=== PATIENT | female | born 2005 | race Caucasian/White ===

== ENCOUNTER 2024-10-14 01:10 | Day surgery (SDC) | payer OTHER, SELFPAY ==
[2024-09-19 10:44] VITALS: BMI 36.0
[2024-10-13 14:07] VITALS: BMI 36.0
[2024-10-14 10:10] VITALS: BP 128/76; PULSE 90; RESP 20; TEMP 35.9; O2SAT 100; BMI 35.8
--- NOTE | 2024-10-14 10:19 | WPDANESEPPF ---
Anes - Initial Pre Proc Eval Procedure: Operation Date: 10/14/24 11:00 Proposed Procedures p Esophagogastroduodenoscopy - Edis Horner MD Date/Time: 10/14/24 10:19 Surgeon: Edis Horner MD Pre Op Diagnosis: dysphagia Patient Data Age: 19 Gender: F Height: 1.63 m Weight: 94.7 kg Last Vital Signs Temp 35.9 C L 10/14/24 10:10 Pulse 90 10/14/24 10:10 Resp 20 10/14/24 10:10 BP 128/76 10/14/24 10:10 Pulse Ox 100 10/14/24 10:10 O2 Del Method Room Air 10/14/24 10:10 Allergies Allergy/AdvReac Type Severity Reaction Status Date / Time fluticasone furoate (From Allergy Mild Rash Verified 10/14/24 10:08 Breo Ellipta) vilanterol (From Breo Allergy Mild Rash Verified 10/14/24 10:08 Ellipta) Home Medications ?Medication ?Instructions ?Recorded ?Confirmed ?Type albuterol 90 mcg/actuation aerosol 90 mcg inhalation DIRECTED 06/26/24 09/19/24 History inhaler aripiprazole 2 mg tablet (Abilify) 2 mg PO DAILY 06/26/24 10/14/24 History cyclobenzaprine 10 mg tablet 10 mg PO TID 06/26/24 10/14/24 History divalproex 500 mg tablet,delayed 500 mg PO Q12H 06/26/24 10/14/24 History release (Depakote) fluoxetine 10 mg capsule (Prozac) 10 mg PO DAILY 06/26/24 10/14/24 History gabapentin 300 mg capsule 300 mg PO TID 06/26/24 10/14/24 History omeprazole 40 mg capsule,delayed 40 mg PO DAILY #30 caps 06/26/24 10/14/24 Rx release propranolol 20 mg tablet 20 mg PO Q12H 06/26/24 10/14/24 History rizatriptan 10 mg tablet See Rx Instructions PO .COMPLEX 06/26/24 10/14/24 History PRN migraine headache clonazepam 1 mg tablet 1 mg PO TID 09/19/24 10/14/24 History clonidine 0.1 mg BYMOUTH BID 09/19/24 10/14/24 History venlafaxine 75 mg capsule,extended 75 mg PO DAILY 09/19/24 10/14/24 History release 24 hr (Effexor XR) Patient hx anesthesia problems: none Family hx anesthesia problems: none Results Review: All pre-operative results and documents have been reviewed as part of the pre-operative evaluation. [facility] Past Medical History Medical History Arthritis Functional neurological symptom disorder (conversion disorder), with abnormal movement Tourette disease Migraines Asthma Anxiety Social History Social History Smoking status: Never smoker Substance use: current Substance use type: other Other substance usage details: THC gummy (2x month) Anes - Eval Final PreProcedure Day of Procedure 10/14/24 10:19 Patient weight: obese Heart: regular rate and rhythm Lungs: clear to auscultation Airway: Mallampati scale class II Neurological: alert and oriented Last oral intake: >/= 8 hours ASA classification: III Emergent: no Anesthetic plan: proceed Anesthesia type and monitoring: general GIVS and standard monitoring Results Review: All pre-operative results and documents have been reviewed as part of the pre-operative evaluation. Informed Consent: The patient's anesthetic plan and its attendant risks and benefits were discussed with the patient/family/POA. Questions were solicited and answers provided to the satisfaction of the patient/family/POA.
[2024-10-14] MEDS: LACTATED RINGERS 1,000 ML 150 ML IV CONT (10:25)
[2024-10-14 10:31] LABS: BEDSIDEPREGUCG Negative (Negative)
--- NOTE | 2024-10-14 10:37 | PM.HPGS ---
History of Present Illness History of Present Illness Consent: Risks, benefits, and alternatives have been discussed and questions answered. Patient agrees to proceed with procedure. Chief complaint: dysphagia Narrative: Lexie Oconnell is a 19 year old female here for first EGD, h/o choking to both solids and liquids, using omeprazole. Review of Systems Review of Systems: All systems reviewed & are unremarkable except as noted in HPI and below PMFSH Past Medical History Medical History Arthritis Functional neurological symptom disorder (conversion disorder), with abnormal movement Tourette disease Migraines Asthma Anxiety Social History Social History Smoking status: Never smoker Substance use: current Substance use type: other Other substance usage details: THC gummy (2x month) Meds Home Medications and Allergies Home Medications ?Medication ?Instructions ?Recorded ?Confirmed ?Type albuterol 90 mcg/actuation aerosol 90 mcg inhalation DIRECTED 06/26/24 09/19/24 History inhaler aripiprazole 2 mg tablet (Abilify) 2 mg PO DAILY 06/26/24 10/14/24 History cyclobenzaprine 10 mg tablet 10 mg PO TID 06/26/24 10/14/24 History divalproex 500 mg tablet,delayed 500 mg PO Q12H 06/26/24 10/14/24 History release (Depakote) fluoxetine 10 mg capsule (Prozac) 10 mg PO DAILY 06/26/24 10/14/24 History gabapentin 300 mg capsule 300 mg PO TID 06/26/24 10/14/24 History omeprazole 40 mg capsule,delayed 40 mg PO DAILY #30 caps 06/26/24 10/14/24 Rx release propranolol 20 mg tablet 20 mg PO Q12H 06/26/24 10/14/24 History rizatriptan 10 mg tablet See Rx Instructions PO .COMPLEX 06/26/24 10/14/24 History PRN migraine headache clonazepam 1 mg tablet 1 mg PO TID 09/19/24 10/14/24 History clonidine 0.1 mg BYMOUTH BID 09/19/24 10/14/24 History venlafaxine 75 mg capsule,extended 75 mg PO DAILY 09/19/24 10/14/24 History release 24 hr (Effexor XR) Allergies Allergy/AdvReac Type Severity Reaction Status Date / Time fluticasone furoate (From Allergy Mild Rash Verified 10/14/24 10:08 Breo Ellipta) vilanterol (From Breo Allergy Mild Rash Verified 10/14/24 10:08 Ellipta) Vital Signs Vital Signs - 24 hr 10/14/24 10:10 Temperature 96.6 F L Pulse Rate 90 Respiratory Rate 20 Blood Pressure 128/76 Pulse Oximetry 100 Oxygen Delivery Room Air Exam Const: General: comfortable, no acute distress and obese HENMT: Face/Nose/Sinus: Normal nares present Eyes: General: appearance normal, both eyes and all related structures Neck: Neck: no JVD Resp: Auscultation: clear to auscultation bilaterally Cardio: Rate: regular rate Rhythm: regular rhythm GI: Inspection: non-distended GI Palp: Yes Soft to palpation Skin: General skin exam: normal color Neuro: General: gait normal Speech: normal speech Extrem: General: normal to inspection Psych: Mental Status: mental status grossly normal Assessment and Plan Assessment and plan (1) Dysphagia: Code(s): R13.10 - Dysphagia, unspecified Status: Acute Assessment and Plan: egd with bx (2) GERD (gastroesophageal reflux disease): Code(s): K21.9 - Gastro-esophageal reflux disease without esophagitis Status: Acute
[2024-10-14] MEDS: BENZOCAINE (*SP) 60 ML SPRAY CAN (HURRICAINE) 1 SPRAY MUCOUS MEM (10:40)
[2024-10-14 10:46] VITALS: BP 98/48; PULSE 94; RESP 20; O2SAT 97
[2024-10-14 10:56] VITALS: BP 93/53; PULSE 90; RESP 18; O2SAT 98
[2024-10-14 11:06] VITALS: BP 113/59; PULSE 92; RESP 18; O2SAT 100
--- OUTSIDE RECORDS SUMMARY | 2024-10-16 03:33 | XMS_ITS | Encounter Summary ---
Author Organization [facility] Address [address] [place] [address]. 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 Name Role Phone None, Provider MD Primary Care Provider Unavaila ble Reason for Visit * Reason Comments Shortness Of Breath Encounter Details Date Type Department Care Team (Late st Contact Info) Description 07/18/2022 8:45 AM CDT - 07/18/2022 12:44 PM CDT Emergency [facility] [place] [address] Rina Matos, JESE [address] [place], [place] [id number] Shortness Of Breath Discharge Disposition: Home or Self Care (Routine Discharge) Social History Tobacco Use Types Packs/Day Years Used Date Smoking Tobacco: Never Smokeless Tobacco: Never Alcohol Use Standard Drinks/Week Comments Never 0 (1 standard drink = 0.6 oz pur e alcohol) Comments No Sex and Gender Information Value Date Recorded Sex Assigned at Not on file Legal Sex Female 7:03 PM CDT Gender Identity Not on file Sexual Orientation Not on file COVID-19 Exposure Response Date Recorded In the last 10 days, have yo u been in contact with someone who was confirmed or suspected to have Coronavirus/COVID-19? No / Unsure 07/18/2022 8:38 AM CDT documented as of this encounter Last Filed Vital Signs Vital Sign Reading Time Taken Comments Blood Pressure 97/60 07/18/2022 12:24 PM CDT Pulse 87 07/18/2022 12:24 PM CDT Temperature 36.8 ??C (98.3 ??F) 07/18/2022 8:50 AM CD T Respiratory Rate 18 07/18/2022 12:2 4 PM CDT Oxygen Saturation 100% 07/18/2022 12: 24 PM CDT Inhaled Oxygen Concentration - - Weight 66.4 kg (146 lb 6.2 oz) 07/18/2022 8:50 A M CDT Height 162.6 cm (5' 4 ) 07/18/2022 8:50 AM CDT Body Mass Index 25.13 07/18/2022 8:50 AM CDT Body Mass Index Percentile 82.82% 07/18/2022 8:5 0 AM CDT Growth Chart: [facility] (Girls, 2- 20 Years) documented in this encounter Discharge Instructions * Discharge Instructions* JESE Marks - 07/18/2022 12:23 PM CDT The work-up today did show that you are positive for rhinovirus which can trigger asthma exacerbations. The x-ray did not show any signs of pneumonia. Your blood counts were also noted without any significant abnormality. Given that you have improved for your asthma please follow-up with your primary care doctor and abdomen specialist this week for close reevaluation. Continue your home regimen. Return to the emergency room for any new or worsening symptoms especially for return of chest pain, worsening trouble breathing, uncontrolled vomiting, fever greater than 100.4 not relieved with Tylenol Motrin or other new emergent concerns. We also addressed your mood and previous thoughts of hurting herself. Given that you are not actively apparently having thoughts of hurting yourself or others, we strongly encourage close follow-up with your psychiatrist. Please continue on your home medications. We are always here should things change or mood change or you do have active thoughts of hurting yourself or others please return immedi ately to the emergency room. Thank you for giving us the opportunity to care for you today. If at any point you are becoming more ill, your condition worsens or have concern, please call your doctor or return here. You are always welcome back. If you have any questions about this visit, concerns about your symptoms, questions about your medications or other concerns, please give us a call... Our practice is committed to providing you the exceptional care. We want to hear from you! Please fill out the survey you get from us. Your feedback is anonymous & helps us improve the patient experience for you and others in the community we serve. - Rina Matos PA-C - Emergency Medicine Provider ADDITIONAL DISCHARGE INSTRUCTIONS: --Please follow all the instructions that we have discussed or are provided here. Take all medications as directed. --Emergency Departments (ED) provide medical screening exams and initial stabilizing treatment of emergency medical conditions. Medicine is an inexact science and many conditions cannot be diagnosed or completely treated during a single ED visit. Your treating healthcare provider(s) today feel yourcondition has been stabilized so further care as an outpatient is reasonable. Emergency care does not substitute for complete, ongoing, or follow-up care by your primary care physician or garden consultant.Please mention to your follow-up physician that you were in the emergency department and request that they review your labs and/or imaging to ensure all findings are followed up on. --Your medication list was reviewed prior to treatment, and at discharge, by the treating provider for the purpose of this outpatient visit only. Please review this entire medication list with your pharmacist, primary care physician, and specialist(s). It is your responsibility to share any new medication instructions you received this visit with your doctor(s). Although no medicine is without risk, your healthcare provider today feels reasonable decisions were made concerning starting new medications and stopping or changing the dosages of your usual medications until you receive follow-up care. Take medications only as directed. Many medications can cause drowsiness, especially those for pain, anxiety, muscle spasms, nausea, and allergies. DO NOT drive, drink alcohol, operate power machinery, or participate in potentially dangerous activities if taking medicines that make you tired. Chronic pain is best managed by pain specialists or primary care physicians, so narcotic refills are not routinely dispensed in the ED. DO NOT take multiple medications containing acetaminophen (Tylenol), such as many narcotic drug combinations and [id number]-[id number] cold medicines. --Again, it was a pleasure taking care of you. * Attachments The following attachments cannot be sent through Care Everywhere. * Asthma Discharge Instructions, Child (Italian) * Viral Syndrome Discharge Instructions (Italian) documented in this encounter Medications at Time of Discharge albuterol (PROVENTIL) (2.5 MG/3ML) 0.083% nebulizer solution Take 3 mLs by nebulization every 4 (four) hours as needed. 07/14/2022 albuterol sulfate HFA 108 (90 Base) MCG/ACT inhaler Inhale 2 puffs into the lungs every 4 (four) hours as needed for Shortness of breath. 07/14/2022 ARIPiprazole (ABILIFY) 2 MG tablet Take 2 mg by mouth daily. 06/27/2022 cloNIDine ER (KAPVAY) 0.1 MG 12 hr tablet Take 0.2 mg by mouth 2 (two) times a day. 06/27/2022 divalproex ER (DEPAKOTE) 500 MG 24 hr tablet Take 500 mg by mouth daily. ferrous sulfate, 65 mg elemental, 325 (65 FE) MG tablet Take 1 tablet by mouth daily with breakfast. 12/09/2021 fluticasone-salm eterol (ADVAIR DISKUS) 500-50 MCG/ACT inhaler Inhale 1 puff into the lungs 2 (two) times daily. 12/06/2021 SPIRIVA RESPIMAT 1.25 MCG/ACT inhaler (SPIRIVA RESPIMAT) Inhale 1 puff into the lungs daily. 12/06/2021 azithromycin (ZITHROMAX) 250 MG tablet Take 250 mg by mouth daily. 07/14/2022 2 predniSONE (DELTASONE) 20 MG tablet Take 20 mg by mouth daily. 07/14/2022 2 documented as of this encounter ED Notes * Shelley Hyatt RN - 07/18/2022 12:29 PM CDT The patient voices understanding and is in agreement with plan of discharge and follow up. VS stable, no distress noted. All questions and concerns addressed prior to discharge. * Isaiah Reynolds RN - 07/18/2022 12:18 PM CDT [facility] intake Hanh called back after eval with pt and dad. States Passive SI x4 years, no plan nointent, has psychiatry. Recommend outpatient care and she will fax over the assessment. SPoke with provider about this and they are agreeable to plan * Shelley Hyatt RN - 07/18/2022 12:01 PM CDT Patients resting HR 89 bpm with SpO2 100%, with ambulation HR elevated to 125- 131 bpm with SpO2 100%, patient asymptomatic. * Jimena Massey RN - 07/18/2022 10:12 AM CDT Pt has fluids infusing and was medicated per MAR at this time. Currently receiving breathing treatment I room * Caro Moctezuma RN - 07/18/2022 9:12 AM CDT Patient wanded per security at this time. * JESE Marks - 07/18/2022 9:09 AM CDT ED NOTE Chief Complaint Chief Complaint Patient presents with ??? Shortness Of Breath History of Present Illness 16-year-old female with a history of asthma, depression, suicidal ideation presents to the emergency room with dad at bedside for suspected asthma flare. Patient reports that she was told by her asthma coding and reimbursement specialist to come into the emergency room as she was recently diagnosed with bronchitis and givensteroids. States that she has been using her nebulizer and inhaler without relief. No lower leg edema, fevers, focal abdominal pain, vomiting, urinary symptoms or vaginal complaints. No concern for . States that she also has been having some nonbloody diarrhea and nausea. Of note when doing screening questions patient does note that she wishes to be . She also has been having active intermittent suicidal thoughts over the past month. Never had any suicidal attempts. States that kennethoes actively wish to harm herself. States that right now she was proceed with self-harm using her zane tools at home. History of hospitalization for suicidal ideation in the past. Does see a psychiatrist. No change in medication. Dad reports no guns in the house and everything is in garage that islocked up. Denies any other additional recreational drug use, pill use or alcohol use. No lower legedema. Patient is on Depo. No periods of immobilization, recent surgery or trauma. No known historyof hypercoagulable state. Medical History ALLERGIES: No Known Allergies MEDICATIONS: Prior to Admission medications Medication Sig Start Date End Date Taking? Authorizing Provider albuterol (PROVENTIL) (2.5 MG/3ML) 0.083% nebulizer solution Take 3 mLs by nebulization every 4 (four) hours as needed. 07/14/22 GENERICPROVIDER, DEFAULT HISTORY albuterol sulfate HFA 108 (90 Base) MCG/ACT inhaler Inhale 2 puffs into the lungs every 4 (four) hours as needed for Shortness of breath. 07/14/22 GENERICPROVIDER, DEFAULT HISTORY ARIPiprazole (ABILIFY) 2 MG tablet Take 2 mg by mouth daily. 06/27/22 GENERICPROVIDER, DEFAULT HISTORY azithromycin (ZITHROMAX) 250 MG tablet Take 250 mg by mouth daily. 07/14/22 07/18/22 GENERICPROVIDER, DEFAULT HISTORY cloNIDine ER (KAPVAY) 0.1 MG 12 hr tablet Take 0.2 mg by mouth 2 (two) times a day. 06/27/22 GENERICPROVIDER, DEFAULT HISTORY divalproex ER (DEPAKOTE) 500 MG 24 hr tablet Take 500 mg by mouth daily. GENERICPROVIDER, DEFAULT HISTORY ferrous sulfate, 65 mg elemental, 325 (65 FE) MG tablet Take 1 tablet by mouth daily with breakfast. 12/09/21 GENERICPROVIDER, DEFAULT HISTORY fluticasone-salmeterol (ADVAIR DISKUS) 500-50 MCG/ACT inhaler Inhale 1 puff into the lungs 2 (two) times daily. 12/06/21 GENERICPROVIDER, DEFAULT HISTORY predniSONE (DELTASONE) 20 MG tablet Take 20 mg by mouth daily. 07/14/22 07/23/22 GENERICPROVIDER, DEFAULT HISTORY SPIRIVA RESPIMAT 1.25 MCG/ACT inhaler (SPIRIVA RESPIMAT) Inhale 1 puff into the lungs daily. 12/06/21GENERICPROVIDER, DEFAULT HISTORY PAST MEDICAL HISTORY: Past Medical History: Diagnosis Date ??? Asthma PAST SURGICAL HISTORY: History reviewed. No pertinent surgical history. FAMILY HISTORY: No family history on file. SOCIAL HISTORY: Social History Tobacco Use ??? Smoking status: Never Smoker ??? Smokeless tobacco: Never Used Vaping Use ??? Vaping Use: Never used Substance Use Topics ??? Alcohol use: Never ??? Drug use: Never Review of Systems Review of Systems Constitutional: Negative for chills and fever. HENT: Negative for ear pain, sinus pain and sore throat. Eyes: Negative for pain and visual disturbance. Respiratory: Positive for cough and shortness of breath. Cardiovascular: Positive for chest pain. Negative for palpitations. Gastrointestinal: Positive for diarrhea and nausea. Negative for abdominal pain and vomiting. Genitourinary: Negative for dysuria, hematuria and urgency. Musculoskeletal: Negative for back pain and neck pain. Skin: Negative for rash and wound. Allergic/Immunologic: Negative for food allergies. Neurological: Negative for dizziness, tremors, seizures and numbness. Psychiatric/Behavioral: Positive for suicidal ideas. Negative for self-injury. Physical Exam Filed Vitals: 07/18/22 1100 07/18/22 1130 07/18/22 1150 07/18/22 1224 BP: (!) 106/53 (!) 108/64 (!) 97/60 Pulse: 97 89 87 Resp: (!) 22 (!) 21 18 Temp: TempSrc: SpO2: 100% 99% 99% 100% Weight: Height: Physical Exam Vitals and nursing note reviewed. Constitutional: Appearance: Normal appearance. She is well-developed. Comments: Nontoxic appearing HENT: Head: Normocephalic and atraumatic. Nose: Nose normal. Mouth/Throat: Mouth: Mucous membranes are moist. Pharynx: Oropharynx is clear. Eyes: Conjunctiva/sclera: Conjunctivae normal. Cardiovascular: Rate and Rhythm: Regular rhythm. Tachycardia present. Pulses: Normal pulses. Heart sounds: Normal heart sounds. Pulmonary: Effort: Pulmonary effort is normal. No respiratory distress. Breath sounds: Normal breath sounds. Abdominal: General: Bowel sounds are normal. There is no distension. Palpations: Abdomen is soft. Tenderness: There is no abdominal tenderness. Musculoskeletal: General: Normal range of motion. Cervical back: Normal range of motion and neck supple. Right lower leg: No edema. Left lower leg: No edema. Skin: General: Skin is warm and dry. Capillary Refill: Capillary refill takes less than 2 seconds. Findings: No rash. Neurological: General: No focal deficit present. Mental Status: She is alert and oriented to person, place, and time. Psychiatric: Mood and Affect: Mood normal. Behavior: Behavior normal. Diagnostic Studies / Procedures ELECTROCARDIOGRAMS: Results for orders placed or performed during the hospital encounter of 07/18/22 ECG 12 lead Narrative [address] Test Date: 2022-07-18 Pat Name: THOMAS NUR Department: 41 Room: [facility] Gender: Female Manager Quality Compliance: DANELLE : 2005 Requested By: RINA MATOS Order Number: [id number] Reading MD: Emma Boateng Measurements Intervals Spencer Rate: 110 P: 50 WA: 140 QRS: 73 QRSD: 90 T: 39 QT: 315 QTc: 427 Interpretive Statements SINUS TACHYCARDIA NONSPECIFIC T-WAVE ABNORMALITY LABORATORY STUDIES: Results for orders placed or performed during the hospital encounter of 07/18/22 CBC W/DIFF AUTOMATED Result Value Ref Range WBC 9.0 4.5 - 13.0 x10'3/uL RBC 4.48 4.20 - 5.40 x10'6/uL HGB 13.2 12.0 - 16.0 G/DL HCT 40.4 38.0 - 48.0 % MCV 90.2 81.0 - 99.0 FL MCH 29.5 27.0 - 31.0 PG MCHC 32.7 32.0 - 36.0 G/DL RDW 13.1 11.5 - 14.5 % PLT 363 130 - 400 x10'3/uL MPV 8.8 (L) 9.3 - 12.2 FL DIFFERENTIAL TYPE AUTOMATED DIFFERENTIAL NEUTROPHILS 82.1 % LYMPHOCYTES 14.4 % MONOCYTES 1.9 % EOSINOPHILS 0.0 % BASOPHILS 0.2 % IMMATURE GRANS 1.4 % ABS. NEUTROPHILS TOTAL 7.40 1.80 - 8.00 x10'3/uL ABS. LYMPHOCYTES 1.30 1.20 - 5.20 x10'3/uL ABS. MONOCYTES 0.17 (L) 0.24 - 0.86 x10'3/uL ABS. EOSINOPHILS 0.00 (L) 0.04 - 0.36 x10'3/uL ABS. BASOPHILS 0.02 0.01 - 0.08 x10'3/uL ABS. IMMATURE GRANULOCYTES 0.13 0.00 - 0.49 x10'3/uL LIPASE Result Value Ref Range LIPASE 62 (L) 73 - 393 UNITS/L D-DIMER, QUANTITATIVE Result Value Ref Range D-DIMER 285 0 - 500 ng[FEU]/mL URINALYSIS Result Value Ref Range Specimen Type URINE CLEAN CATCH COLOR (U) LIGHT YELLOW TRANSPARENCY CLEAR Specific Bradford (U) 1.029 1.001 - 1.030 U PH 6.5 5.0 - 9.0 LEUKOCYTE ESTERASE 250 (A) NEGATIVE NITRITES NEGATIVE NEGATIVE PROTEIN (U) 20 <30 MG/DL URINE GLUCOSE NORMAL NORMAL MG/DL U KETONES 10 (A) NEGATIVE MG/DL UROBILINOGEN NORMAL NORMAL MG/DL BILIRUBIN (U) NEGATIVE NEGATIVE MG/DL BLOOD NEGATIVE NEGATIVE CULTURE & SENSITIVITY INDICATED? SPECIMEN SETUP FOR CULTURE MUCUS MODERATE /LPF WBC/HPF 9 (H) <6 /HPF RBC/HPF 8 (H) <6 /HPF SQUAMOUS EPITHELIALS RARE /HPF DRUG SCREEN RAPID Result Value Ref Range AMPHETAMINE (U) NEGATIVE NEGATIVE BARBITURATES SCREEN (U) NEGATIVE NEGATIVE BENZODIAZEPINES SCREEN (U) NEGATIVE NEGATIVE CANNABINOIDS SCREEN (U) NEGATIVE NEGATIVE COCAINE METABOLITES (U) NEGATIVE NEGATIVE METHADONE (U) NEGATIVE NEGATIVE OPIATE SCREEN (U) NEGATIVE NEGATIVE PHENCYCLIDINE PCP (U) NEGATIVE NEGATIVE CREATININE (U) 190.0 28 - 217 MG/DL TSH W/REFLEX Result Value Ref Range TSH 1.230 0.358 - 3.74 uIU/ML SALICYLATE Result Value Ref Range Salicylates <1.7 (L) 2.8 - 20.0 MG/DL ACETAMINOPHEN Result Value Ref Range Acetaminophen <2.0 (L) 10.0 - 30.0 MCG/ML ETHANOL Result Value Ref Range Alcohol <0.003 <0.003 G/DL POCT urine Result Value Ref Range URINE HCG TEST negative NEGATIVE Internal Control performed as Expected? valid VALID RESPIRATORY PCR PANEL 2 Specimen: NASOPHARYNGEAL SWAB Result Value Ref Range ADENOVIRUS PCR (RESP) NOT DETECTED NOT DETECTED CORONAVIRUS 229E PCR (RESP) NOT DETECTED NOT DETECTED CORONAVIRUS HKU1 PCR (RESP) NOT DETECTED NOT DETECTED CORONAVIRUS NL63 PCR (RESP) NOT DETECTED NOT DETECTED CORONAVIRUS OC43 PCR (RESP) NOT DETECTED NOT DETECTED METAPNEUMOVIRUS PCR (RESP) NOT DETECTED NOT DETECTED RHINOVIRUS/ENTEROVIRUS PCR (RESP) DETECTED (A) NOT DETECTED INFLUENZA A PCR (RESP) NOT DETECTED NOT DETECTED INFLUENZA B PCR (RESP) NOT DETECTED NOT DETECTED PARAINFLUENZA 1 PCR (RESP) NOT DETECTED NOT DETECTED PARAINFLUENZA 2 PCR (RESP) NOT DETECTED NOT DETECTED PARAINFLUENZA 3 PCR (RESP) NOT DETECTED NOT DETECTED PARAINFLUENZA 4 PCR (RESP) NOT DETECTED NOT DETECTED RSV PCR (RESP) NOT DETECTED NOT DETECTED B PARAPERTUSIS PCR (RESP) NOT DETECTED NOT DETECTED BORDETELLA PERTUSSIS PCR (RESP) NOT DETECTED NOT DETECTED CHLAMYDOPHILA PNEUMONIAE PCR (RESP) NOT DETECTED NOT DETECTED MYCOPLASMA PNEUMONIAE PCR (RESP) NOT DETECTED NOT DETECTED CORONAVIRUS SARS COV 2 PCR (RESP) NOT DETECTED NOT DETECTED FIRST TEST UNKNOWN EMPLOYED IN HEALTHCARE NO SYMPTOMATIC DEFINED BY CDC NO HOSPITALIZATION STATUS YES PATIENT IN ICU NO RESIDENT OF [facility] NO UNKNOWN IMAGING STUDIES XR CHEST PORTABLE Final Result by User, [email or web address] (07/18 1007) Examination: XR CHEST PORTABLE Exam time: 07/18/2022 9:42 AM Clinical history: Shortness of breath. Asthma. Comparison: No prior exam Technique: AP upright view Findings: Cardiac silhouette and pulmonary vasculature are within normal limits. Lungs appear clear. No evidence of significant hyperinflation. No evidence of bronchial wall thickening or peribronchial cuffing. No evidence of pleural effusion. No evidence of pneumothorax or pneumomediastinum. Metallic densities related to a bra project over the cardiac silhouette. IMPRESSION: No radiographic evidence of active chest disease. Ordered By: RINA MATOS Interpreted By: Sathya Ovalles MD, 07/18/2022 10:06 AM ED Course / Medical Decision Making MDM Number of Diagnoses or Management Options Asthma exacerbation: established and improving Amount and/or Complexity of Data Reviewed Clinical lab tests: reviewed and ordered Tests in the radiology section of CPT??: reviewed and ordered Obtain history from someone other than the patient: yes (Dad at bedside) Discuss the patient with other providers: yes (ED attending, Dr. Bailon) ED Course as of 07/18/22 1245 Tue Jul 18, 2022 0914 EKG 1015 sinus tachycardia rate 110 bpm WA 140 QTc 380 T wave inversion seen in aVR and V1. NoSTEMI [AD] 1029 D-DIMER: 285 Low risk by Camilo, unlikely PE [AD] 1029 XR CHEST PORTABLE Per rad read: No radiographic evidence of active chest disease. [AD] 1114 Reviewed work-up and imaging thus far with patient and family at bedside. She was found sleeping comfortably in no acute distress. Repeat vital signs show O2 remaining around 100%. Patient also reports subjective improvement in symptoms. Patient now states that she is not currently suicidal homicidal. No visual or auditory hallucinations. States that she does feel as if she has a bad supportsystem in dad and mom. States that she feels as if she is at her baseline. We will get daily psych consult here in the ER and if patient continues to deny any active thoughts will plan for possible safety plan and discussed with parents to ensure safe disposition. Dad at bedside who is in agreementwith this. [AD] 1225 On reevaluation patient found sleeping. No signs of respiratory distress. She reports subjective improvement. No desaturation or need for oxygen supplementation. No indication for admission. No airway compromise. Patient not still had concern regarding bleeding suicidal ideations. [facility] intake was consulted and patient continues to deny any active SI or HI thoughts. She reports that she has no current plan or intent at this time. Does have a psychiatrist. Dad at bedside who reports that he feels comfortable closely monitoring patient at home and both patient and dad agree that this is patient's baseline. Reiterated that they can always return should any of this change for further evaluation and care. Reliable parent. Stable for outpatient up. Strict verbal return precautions reviewed. Patient expresses verbal understanding and agreement with plan. All questions answered to the best of my ability. Teachback performed by patient. Nontoxic exit exam. Patient discharged home in stable condition. Reviewed with attending Dr. Bailon who is in agreement with plan [AD] ED Course User Index [AD] JESE Marks Medications sodium chloride 0.9% bolus infusion 1,000 mL (0 mLs Intravenous Infusion Stop Time 07/18/22 1110) ipratropium-albuterol (DUONEB) 0.5-2.5 (3) MG/3ML nebulizer solution 3 mL (3 mLs Nebulization Given07/18/22 1004) dexamethasone PF (DECADRON) injection 10 mg (10 mg Intravenous Given 07/18/22 1006) Clinical Impression Rhinovirus (Primary) Asthma exacerbation History of suicidal ideation Discharge Medication List as of 07/18/2022 12:30 PM Disposition: Discharge Follow-Up: your asthma doctor and primary care doctor JESE MARKS 07/18/2022 JESE Marks 07/18/22 1246 Cosigned by Luke Bailon MD at 07/18/2022 12:58 PM CDT * Mehnaz Jordan RN - 07/18/2022 8:39 AM CDT Pt from home with cc of Asthma flare up, getting progressively worse over the past week. Was told by PCP to come in. Was seen by PCP last Sunday and diagnosed with bronchitis and given steroids without relief. States her nebulizer and inhalers are not working anymore. documented in this encounter Plan of Treatment Not on file documented as of this encounter Procedures Procedure Name Priority Date/Time Associated Diagnosis Comments ECG 12-LEAD STAT 07/18/2022 10:15 AM CDT XR CHEST PORTABLE STAT 07/18/2022 9:5 1 AM CDT TSH W/REFLEX STAT 07/18/2022 9:30 AM CDT POCT URINE (BACK OFFICE) STAT 07/18/2022 9:30 AM CDT D-DIMER, QUANTITATIVE STAT 07/18/2022 9:30 AM CDT CBC W/DIFF AUTOMATED STAT 07/18/2022 9:30 AM CDT LIPASE STAT 07/18/2022 9:30 AM CDT SALICYLATE STAT 07/18/2022 9:30 AM CDT ETHANOL STAT 07/18/2022 9:30 AM CDT ACETAMINOPHEN STAT 07/18/2022 9:30 AM CDT RESPIRATORY PCR PANEL 2 STAT 07/18/2022 9:29 AM CDT DRUG SCREEN RAPID STAT 07/18/2022 9:2 1 AM CDT HC URINALYSIS AUTO W/O MICRO STAT 07/18/2022 9:20 AM CDT URINE BACTERIA CULTURE Routine 9:20 AM CDT documented in this encounter Results * ECG 12 lead (07/18/2022 10:15 AM CDT) 07/18/2022 10:1 5 AM CDT Narrative [facility] - 07/18/2022 10:51 AM CDT ? [facility] ? [address] [place] ? Test Date: ?2022-07-18 Pat Name: ? THOMAS BOOM ? Department: ?? 41 ? Room: ? EXAM18 Gender: ? Female ? Manager Quality Compliance: ?? AD : ?2005 ? Requested By: RINA MATOS Order Number: [id number] ? Reading MD: ?? Emma ?? Mubayed ? Measurements Intervals ?Spencer ? Rate: ? 110 ?P: ?50 WA: ? 140 ?QRS: ?73 QRSD: ? 90 ? T: ?39 QT: ? 315 ? QTc: ?427 ? Interpretive Statements SINUS TACHYCARDIA NONSPECIFIC T-WAVE ABNORMALITY Procedure Note Emma Boateng MD - [facility] [address] [facility] Test Date: 2022-07-18 Pat Name: THOMAS NUR Department: 41 Room: EXAM18 Gender: Female Manager Quality Compliance: DANELLE : 2005 Requested By: RINA MATOS Order Number: [id number] Reading MD: Emma Boateng Measurements Intervals Spencer Rate: 110 P: 50 WA: 140 QRS: 73 QRSD: 90 T: 39 QT: 315 QTc: 427 Interpretive Statements SINUS TACHYCARDIA NONSPECIFIC T-WAVE ABNORMALITY us Rina SAWANT ECG ORDERABLES Final Result Performing Organization Address City/State/[facility] Co de Phone Number [facility] ([facility]) RAD * XR CHEST PORTABLE (07/18/2022 9:51 AM CDT) Anatomical Region Laterality Modality Chest Radiographic Veda ging 07/18/2022 10:0 6 AM CDT Impressions 07/18/2022 10:06 AM CDT IMPRESSION: No radiographic evidence of active chest disease. Ordered By: RINA MATOS Interpreted By: Sathya Ovalles MD, 07/18/2022 10:06 AM Narrative 07/18/2022 10:06 AM CDT Examination: XR CHEST PORTABLE Exam time: 07/18/2022 9:42 AM Clinical history: Shortness of breath. Asthma. Comparison: No prior exam Technique: AP upright view Findings: Cardiac silhouette and pulmonary vasculature are within normal limits. Lungs appear clear. No evidence of significant hyperinflation. No evidence of bronchial wall thickening or peribronchial cuffing. No evidence of pleural effusion. No evidence of pneumothorax or pneumomediastinum. Metallic densities related to a bra project over the cardiac silhouette. Procedure Note Sathya Ovalles MD - 07/18/2022 Examination: XR CHEST PORTABLE Exam time: 07/18/2022 9:42 AM Clinical history: Shortness of breath. Asthma. Comparison: No prior exam Technique: AP upright view Findings: Cardiac silhouette and pulmonary vasculature are within normallimits. Lungs appear clear. No evidence of significant hyperinflation. Noevidence of bronchial wall thickening or peribronchial cuffing. Noevidence of pleural effusion. No evidence of pneumothorax orpneumomediastinum. Metallic densities related to a bra project over thecardiac silhouette. IMPRESSION: No radiographic evidence of active chest disease. Ordered By: RINA MATOS Interpreted By: Sathya Ovalles MD, 07/18/2022 10:06 AM [facility] Final Result * POCT urine (07/18/2022 9:30 AM CDT) URINE HCG TEST negative NEGATIVE Internal Control performed as Expected? valid VALID [facility] POINT OF CARE TEST ORDERABLES Final Result * ETHANOL (07/18/2022 9:30 AM CDT) ALCOHOL S/P/B <0.003 <0.003 G/DL 07/18/2022 10:15 AM CDT [facility] 07/18/2022 9:30 AM CDT [facility] Final Result [facility] [address] [place] [address], * (ABNORMAL) ACETAMINOPHEN (07/18/2022 9:30 AM CDT) ACETAMINOPHEN S/P/B <2.0(L) 10.0 - 30.0 MCG/ML 07/18/2022 10:15 AM CDT [facility] Comment: ?THERAPEUTIC: 10-30 ?TOXIC: >200 07/18/2022 9:30 AM CDT [facility] Final Result Performing Organization Address [facility] de Phone Number [facility] [address] [place] [address], * (ABNORMAL) SALICYLATE (07/18/2022 9:30 AM CDT) SALICYLATES <1.7(L) 2.8 - 20.0 MG/DL 07/18/2022 10:03 AM CDT [facility] Comment: THERAPEUTIC: ?2.8-20.0 Toxic Level: ?>=30 07/18/2022 9:30 AM CDT [facility] Final Result Performing Organization Address City/[facility] Co de Phone Number [facility] [address] [place] [address], [place] [phone] * TSH W/REFLEX (07/18/2022 9:30 AM CDT) TSH 1.230 0.358 - 3.74 uIU/ML 07/18/2022 10:15 AM CDT [facility] Comment: HIGH DOSES OF BIOTIN MAY INTERFERE WITH THIS TEST RESULT. CORRELATION TO CLINICAL HISTORY AND PRESENTATION RECOMMENDED. FREE T4 NOT INDICATED 07/18/2022 9:30 AM CDT [facility] Final Result Performing Organization Address [facility] Co de Phone Number [facility] [address] [place] [address], [place] [phone] * D-DIMER, QUANTITATIVE (07/18/2022 9:30 AM CDT) Pathologist [facility] D-DIMER 285 0 - 500 ng{FEU}/mL 07/18/2022 10:02 AM CDT [facility] Comment: D-Dimer values less than or equal to 500 ng/mL FEU have a negative predictive value of >95% for exclusion of deep vein thrombosis and pulmonary embolism. In patients over 50 (who tend to have higher normal baseline D-Dimer values), recent studies suggest age-adjusted D-Dimer cutoff values (calculated as: age [years] x 10 ng/mL) result in equivalent outcomes and no additional false negative findings. 07/18/2022 9:30 AM CDT [facility] Final Result Performing Organization Address [facility] Co de Phone Number [facility] [address] [place] [address], [place] [phone] * (ABNORMAL) LIPASE (07/18/2022 9:30 AM CDT) Pathologist [facility] LIPASE 62(L) 73 - 393 UNITS/L 07/18/2022 10:15 AM CDT [facility] 07/18/2022 9:30 AM CDT [facility] Final Result [facility] [address] [place] [address], [place] [phone] * (ABNORMAL) CBC W/DIFF AUTOMATED (07/18/2022 9:30 AM CDT) [facility] WBC 9.0 4.5 - 13.0 x10'3/uL 07/18/2022 9:41 AM CDT [facility] RBC 4.48 4.20 - 5.40 x10'6/uL 07/18/2022 9:41 AM CDT [facility] HGB 13.2 12.0 - 16.0 G/DL 07/18/2022 9:41 AM CDT [facility] HCT 40.4 38.0 - 48.0 % 07/18/2022 9:41 AM CDT [facility] MCV 90.2 81.0 - 99.0 FL 07/18/2022 9:41 AM CDT [facility] MCH 29.5 27.0 - 31.0 PG 07/18/2022 9:41 AM CDT [facility] MCHC 32.7 32.0 - 36.0 G/DL 07/18/2022 9:41 AM CDT [facility] RDW 13.1 11.5 - 14.5 % 07/18/2022 9:41 AM CDT [facility] PLT 363 130 - 400 x10'3/uL 07/18/2022 9:41 AM CDT [facility] MPV 8.8(L) 9.3 - 12.2 FL 07/18/2022 9:41 AM CDT [facility] DIFFERENTIAL TYPE AUTOMATED DIFFERENTIAL 07/18/2022 9:41 AM CDT [facility] NEUTROPHILS % 82.1 % 07/18/2022 9:41 AM CDT [facility] LYMPHOCYTES % 14.4 % 07/18/2022 9:41 AM CDT [facility] MONOCYTES % 1.9 % 07/18/2022 9:41 AM CDT [facility] EOSINOPHILS 0.0 % 07/18/2022 9:41 AM CDT [facility] BASOPHILS 0.2 % 07/18/2022 9:41 AM CDT [facility] IMMATURE GRANS % 1.4 % 07/18/20 9:41 AM CDT [facility] ABS. NEUTROPHILS TOTAL 7.40 1.80 - 8.00 x10'3/uL 07/18/2022 9:41 AM CDT [facility] ABS. LYMPHOCYTES 1.30 1.20 - 5.20 x10'3/uL 07/18/2022 9:41 AM CDT [facility] ABS. MONOCYTES 0.17(L) 0.24 - 0.86 x10'3/uL 07/18/2022 9:41 AM CDT [facility] ABS. EOSINOPHILS 0.00(L) 0.04 - 0.36 x10'3/uL 07/18/2022 9:41 AM CDT [facility] ABS. BASOPHILS 0.02 0.01 - 0.08 x10'3/uL 07/18/2022 9:41 AM CDT [facility] ABS. IMMATURE GRANULOCYTES 0.13 0.00 - 0.49 x10'3/uL 07/18/2022 9:41 AM T [facility] 07/18/2022 9:30 AM CDT [facility] Final Result [facility] [address] [place] [address], [place] [phone] * (ABNORMAL) RESPIRATORY PCR PANEL 2 (07/18/2022 9:29 AM CDT) Pathologist [facility] ADENOVIRUS PCR (RESP) NOT DETECTED NOT DETECTED 07/18/2022 10:31 AM CDT [facility] CORONAVIRUS 229E PCR (RESP) NOT DETECTED NOT DETECTED 07/18/2022 10:31 AM CDT [facility] CORONAVIRUS HKU1 PCR (RESP) NOT DETECTED NOT DETECTED 07/18/2022 10:31 AM CDT [facility] CORONAVIRUS NL63 PCR (RESP) NOT DETECTED NOT DETECTED 07/18/2022 10:31 AM CDT [facility] CORONAVIRUS OC43 PCR (RESP) NOT DETECTED NOT DETECTED 07/18/2022 10:31 AM CDT [facility] METAPNEUMOVIRUS PCR (RESP) NOT DETECTED NOT DETECTED 07/18/2022 10:31 AM CDT [facility] RHINOVIRUS/ENTEROV IRUS PCR (RESP) DETECTED(A) NOT DETECTED 07/18/2022 10:31 AM CDT [facility] INFLUENZA A PCR (RESP) NOT DETECTED NOT DETECTED 07/18/2022 10:31 AM CDT [facility] INFLUENZA B PCR (RESP) NOT DETECTED NOT DETECTED 07/18/2022 10:31 AM CDT [facility] PARAINFLUENZA 1 PCR (RESP) NOT DETECTED NOT DETECTED 07/18/2022 10:31 AM CDT [facility] PARAINFLUENZA 2 PCR (RESP) NOT DETECTED NOT DETECTED 07/18/2022 10:31 AM CDT [facility] PARAINFLUENZA 3 PCR (RESP) NOT DETECTED NOT DETECTED 07/18/2022 10:31 AM CDT [facility] PARAINFLUENZA 4 PCR (RESP) NOT DETECTED NOT DETECTED 07/18/2022 10:31 AM CDT [facility] RSV PCR (RESP) NOT DETECTED NOT DETECTED 07/18/2022 10:31 AM CDT [facility] B PARAPERTUSIS PCR (RESP) NOT DETECTED NOT DETECTED 07/18/2022 10:31 AM CDT [facility] BORDETELLA PERTUSSIS PCR (RESP) NOT DETECTED NOT DETECTED 07/18/2022 10:31 AM CDT [facility] CHLAMYDOPHILA PNEUMONIAE PCR (RESP) NOT DETECTED NOT DETECTED 07/18/2022 10:31 AM CDT [facility] MYCOPLASMA PNEUMONIAE PCR (RESP) NOT DETECTED NOT DETECTED 07/18/2022 10:31 AM CDT [facility] CORONAVIRUS SARS COV 2 PCR (RESP) NOT DETECTED NOT DETECTED 07/18/2022 10:31 AM CDT [facility] FIRST TEST UNKNOWN 07/18/2022 9:30 AM CDT [facility] EMPLOYED IN HEALTHCARE NO 07/18/2022 9:30 AM CDT [facility] SYMPTOMATIC DEFINED BY CDC NO 07/18/2022 9:30 AM CDT [facility] HOSPITALIZATION STATUS YES 07/18/2022 9:30 AM CDT [facility] PATIENT IN ICU NO 07/18/2022 9:30 AM CDT [facility] RESIDENT OF [facility] NO 07/18/2022 9:30 AM CDT [facility] UNKNOWN 07/18/2022 9:30 AM CDT [facility] NASOPHARYNGEAL SWAB / Unknown 07/18/2022 9:29 AM CDT us [facility] - GENERAL ORDERA PRASANTH Final Result [facility] [address] [place] [address], * DRUG SCREEN RAPID (07/18/2022 9:21 AM CDT) [facility] AMPHETAMINE (U) NEGATIVE NEGATIVE 9:48 AM CDT [facility] BARBITURATES SCREEN (U) NEGATIVE NEGATIVE 07/18/2022 9:48 AM CDT [facility] BENZODIAZEPINES SCREEN (U) NEGATIVE NEGATIVE 07/18/2022 9:48 AM CDT [facility] CANNABINOIDS SCREEN (U) NEGATIVE NEGATIVE 07/18/2022 9:48 AM CDT [facility] COCAINE METABOLITES (U) NEGATIVE NEGATIVE 07/18/2022 9:48 AM CDT [facility] METHADONE (U) NEGATIVE NEGATIVE 07/18/2022 9:48 AM CDT [facility] OPIATE SCREEN (U) NEGATIVE NEGATIVE 022 9:48 AM CDT [facility] PHENCYCLIDINE PCP (U) NEGATIVE NEGATIVE 07/18/2022 9:48 AM CDT [facility] Comment: NOTE: RESULTS OF THIS DRUG SCREEN SHOULD BE USED FOR MEDICAL PURPOSES ONLY AND NOT FOR LEGAL OR EMPLOYMENT PURPOSES. POSITIVE RESULTS ARE NOT CONFIRMED. MEDICATIONS CONTAINING EPHEDRINE MAY CAUSE FALSE POSITIVE AMPHETAMINE CALL 8, LAB, TO REQUEST CONFIRMATION TESTING. IF CREATININE IS <40 mg/dL. ??RECOLLECTION IS SUGGESTED. AMPHETAMINE- ?500 NG/ML BARBITURATE- ?200 NG/ML BENZODIAZEPINES- ??200 NG/ML THC- ? 50 NG/ML COCAINE- ?150 NG/ML METHADONE- ?300 NG/ML OPIATE- ? 300 MG/ML PCP- ? 25 NG/ML CREATININE (U) 190.0 28 - 217 MG/DL 07/18/2022 9:48 AM CDT [facility] URINE SPECIMEN / Unknown 07/18/2022 9:21 AM CDT [facility] URINE ORDERABLES Final Result Performing Organization Address [facility] de Phone Number [facility] [address] [place] [address], * CULTURE URINE (07/18/2022 9:20 AM CDT) SPEC DESCRIPTION URINE CLEAN CATCH 07/18/2022 9:40 AM CDT [facility] SPECIAL REQUESTS NO SPECIAL REQUEST 07/18/2022 9:40 AM CDT [facility] CULTURE RESULT NO GROWTH 2 DAYS 07/20/2022 8:33 AM CDT [facility] URINE SPECIMEN OBTAINED BY CLEAN CATCH PROCEDURE / Unknown 07/18/2022 9:20 AM CDT 07/18/2022 9:40 AM CDT [facility] - GENERAL ORDERA BLES Final Result Performing Organization Address [facility] Co de Phone Number [facility] [address] [place] [address], [place] [phone] * (ABNORMAL) URINALYSIS (07/18/2022 9:20 AM CDT) SPECIMEN TYPE URINE CLEAN CATCH 07/18/2022 9:21 AM T [facility] COLOR (U) LIGHT YELLOW 07/18/2022 9:39 AM T [facility] TRANSPARENCY CLEAR 07/18/2022 9:39 AM [facility] SPECIFIC GRAVITY (U) 1.029 1.001 - 1.030 07/18/2022 9:39 AM T [facility] U PH 6.5 5.0 - 9.0 07/18/2022 9:39 AM T [facility] LEUKOCYTES (U) 250(A) NEGATIVE 07/18/2022 9:39 AM T [facility] NITRITES NEGATIVE NEGATIVE 07/18/2022 9:39 AM [facility] PROTEIN (U) 20 <30 MG/DL 07/18/2022 9:39 AM T [facility] URINE GLUCOSE NORMAL NORMAL MG/DL 07/18/2022 9:39 AM T [facility] KETONES MG/DL (U) 10(A) NEGATIVE MG/DL 07/18/2022 9:39 AM T [facility] UROBILINOGEN NORMAL NORMAL MG/DL 07/18/2022 9:39 AM T [facility] BILIRUBIN (U) NEGATIVE NEGATIVE MG/DL 07/18/2022 9:39 AM T [facility] BLOOD (U) NEGATIVE NEGATIVE 07/18/2022 9:39 AM [facility] CULTURE & SENSITIVITY INDICATED? SPECIMEN SETUP FOR CULTURE 07/18/2022 9:39 AM T [facility] MUCUS MODERATE /LPF 07/18/2022 9:39 AM [facility] WBC/HPF 9(H) <6 /HPF 07/18/2022 9:39 AM CDT [facility] RBC/HPF 8(H) <6 /HPF 07/18/2022 9:39 AM CDT [facility] SQUAMOUS EPITHELIALS RARE /HPF 07/18/2022 9:39 AM CDT [facility] URINE SPECIMEN OBTAINED BY CLEAN CATCH PROCEDURE / Unknown 07/18/2022 9:20 AM CDT [facility] URINE ORDERABLES Final Result [facility] [address] [place] [address], [place] [phone] documented in this encounter Visit Diagnoses Diagnosis Rhinovirus- Primary Rhinovirus infection in conditions classified elsewhere and of unspecified site Asthma exacerbation ([facility]/H[facility]) Unspecified asthma, with exacerbation History of suicidal ideation documented in this encounter Administered Medications Inactive Administered Medications - up to 3 most recent administrations Medication Order MAR Action Action Date Dose Rate Site dexamethasone PF (DECADRON) injection 10 mg 10 mg, Intravenous, Once, 1 dose, On Sun07/18/22 at 1000, Administer slowly over 1-4 minutes. Given 07/18/2022 10:06 AM CDT 10 mg ipratropium-albuterol (DUONEB) 0.5-2.5 (3) MG/3ML nebulizer solution 3 mL 3 mL, Nebulization, Once, 1 dose, On Sun07/18/22 at 1000 Given 07/18/2022 10:04 AM CDT 3 mLs sodium chloride 0.9% bolus infusion 1,000 mL 1,000 mL, Intravenous, Administer over 60 Minutes, Once, 1 dose, On Sun07/18/22 at 0945 New Bag 07/18/2022 10:08 AM CDT 1,000 mLs documented in this encounter Active and Recently Administered Medications Times are shown in CDT. Scheduled Medication Order 07/16/2022 07/17/2022 07/18/2022 dexamethasone PF (DECADRON) injection 10 mg (COMPLETED) 10 mg, Intravenous, Once, 1 dose, On Sun07/18/22 at 1000, Administer slowly over 1-4 minutes. 1006 (Given - Provid er: Jimena Massey RN) ipratropium-albuterol (DUONEB) 0.5-2.5 (3) MG/3ML nebulizer solution 3 mL (COMPLETED) 3 mL, Nebulization, Once, 1 dose, On Sun07/18/22 at 1000 1004 (Given - Provid er: Sathya Rodriguez, CYTOTECHNOLOGIST) sodium chloride 0.9% bolus infusion 1,000 mL (COMPLETED) 1,000 mL, Intravenous, Administer over 60 Minutes, Once, 1 dose, On Sun07/18/22 at 0945 1008 (New Bag - Prov ider: Jimena Massey RN)1110 (Infusion Stop Time - Provider: Shelley Hyatt RN) documented in this encounter Additional Health Concerns Infection Onset Date Last Indicated Resolved Time COVID-19 Rule Out 07/18/2022 07/18/2022 07/18/2022 10:31 AM CDT documented as of this encounter Care Teams Printed Circuit Board Pcb Designer Relationship Specialty Start Date End Date None, Provider, PCP - General 06/08/21 documented as of this encounter
--- OUTSIDE RECORDS SUMMARY | 2024-10-16 03:33 | XMS_ITS | Encounter Summary ---
Author Organization [facility] Address [address] [place] [address]. [place] [address] [place] [address] Care Team Providers Care Transmitter Tester Name Role Phone None, Provider Primary Care Provider Bryana ble Encounter Details Date Type Department Care Team (Late st Contact Info) Description 06/06/2022 - 06/06/2022 11:59 PM CDT Hospital Encounter [facility] [address] [place] [address] Larissa Choudhary NP [address] [place] [address] Discharge Disposition: Home or Self Care (Routine Discharge) Social History Tobacco Use Types Packs/Day Years Used Date Smoking Tobacco: Never Assessed Comments No Sex and Gender Information Value Date Recorded Sex Assigned at Not on file Legal Sex Female 7:03 PM CDT Gender Identity Not on file Sexual Orientation Not on file COVID-19 Exposure Response Date Recorded In the last 10 days, have yo u been in contact with someone who was confirmed or suspected to have Coronavirus/COVID-19? No / Unsure 06/06/2022 11:47 AM CDT documented as of this encounter Medications at Time of Discharge ferrous sulfate, 65 mg elemental, 325 (65 FE) MG tablet Take 1 tablet by mouth daily with breakfast. 12/09/2021 fluticasone-salme terol (ADVAIR DISKUS) 500-50 MCG/ACT inhaler Inhale 1 puff into the lungs 2 (two) times daily. 12/06/2021 SPIRIVA RESPIMAT 1.25 MCG/ACT inhaler (SPIRIVA RESPIMAT) Inhale 1 puff into the lungs daily. 12/06/2021 documented as of this encounter Plan of Treatment Not on file documented as of this encounter Visit Diagnoses Not on filedocumented in this encounter Additional Health Concerns Infection Onset Date Last Indicated Resolved Time COVID-19 Rule Out 06/06/2022 06/06/2022 06/08/2022 4:45 AM CDT documented as of this encounter Care Teams Transmitter Tester Relationship Specialty Start Date End Date None, Provider, PCP - General 06/08/21 documented as of this encounter
--- OUTSIDE RECORDS SUMMARY | 2024-10-16 03:33 | XMS_ITS | Encounter Summary ---
Author Organization [facility] Address [address] [place] [address]. [place] [address] [place] [address] Care Team Providers Care Gaming Host Name Role Phone None, Provider Primary Care Provider Unavaila ble Encounter Details Date Type Department Care Team (Latest Contact Info) Description 06/08/2021 Travel Social History Tobacco Use Types Packs/Day Years Used Date Smoking Tobacco: Never Assessed Comments No Sex and Gender Information Value Date Recorded Sex Assigned at Not on file Legal Sex Female 7:03 PM CDT Gender Identity Not on file Sexual Orientation Not on file COVID-19 Exposure Response Date Recorded In the last month, have you been in contact with someone who was confirmed or suspected to have Coronavirus / COVID-19? Yes 06/08/2021 10:54 AM CDT documented as of this encounter Plan of Treatment Not on file documented as of this encounter Visit Diagnoses Not on filedocumented in this encounter Additional Health Concerns Infection Onset Date Last Indicated Resolved Time COVID-19 Rule Out 06/08/2021 06/08/2021 06/09/2021 4:26 PM CDT documented as of this encounter Care Teams Gaming Host Relationship Specialty Start Date End Date None, Provider, PCP - General 06/08/21 documented as of this encounter
--- OUTSIDE RECORDS SUMMARY | 2024-10-16 03:33 | XMS_ITS | Encounter Summary ---
Author Organization [facility] Address [address] [place] [address]. [place] [address] [place] [address] Care Team Providers Care Phlebotomy Technologist Name Role Phone None, Provider MD Primary Care Provider Unavaila ble Reason for Visit * Reason Onset Date Comments Referral 05/17/2023 Encounter Details Date Type Department Care Team (Late st Contact Info) Description 05/17/2023 Telephone [facility] Diabetes and Endocrinology - [address] [address] Oscar [place] MD Referral Social History Tobacco Use Types Packs/Day Years Used Date Smoking Tobacco: Never Smokeless Tobacco: Never Alcohol Use Standard Drinks/Week Comments Never 0 (1 standard drink = 0.6 oz pur e alcohol) Comments No Sex and Gender Information Value Date Recorded Sex Assigned at Not on file Legal Sex Female 7:03 PM CDT Gender Identity Not on file Sexual Orientation Not on file documented as of this encounter Progress Notes * Mary Walker - 05/18/2023 11:59 AM CDT Returned patient's mother call. LVM regarding referral; Questions, please call back * Nunu Neal - 05/17/2023 4:26 PM CDT Pt's mother Mariola called to schedule an appt. Her PCP, Kira Pineda, sent a referral. Cb# [phone] documented in this encounter Plan of Treatment Not on file documented as of this encounter Visit Diagnoses Not on filedocumented in this encounter Care Teams Phlebotomy Technologist Relationship Specialty Start Date End Date None, Provider, PCP - General 06/08/21 documented as of this encounter
--- OUTSIDE RECORDS SUMMARY | 2024-10-16 03:33 | XMS_ITS | Encounter Summary ---
Author Organization [facility] Address [address] [place] [address]. [place] [address] [place] [address] Care Team Providers Care Music Typographer Name Role Phone None, Provider Primary Care Provider Unavaila ble Encounter Details Date Type Department Care Team (Late st Contact Info) Description 08/29/2022 Orders Only [facility] [address] [place] [address] [place] [address] [address] Social History Tobacco Use Types Packs/Day Years [...] on file documented as of this encounter Plan of Treatment Not on file documented as of this encounter Visit Diagnoses Not on filedocumented in this encounter Care Teams Music Typographer Relationship Specialty Start Date End Date None, Provider, PCP - General 06/08/21 documented as of this encounter
--- OUTSIDE RECORDS SUMMARY | 2024-10-16 03:33 | XMS_ITS | Encounter Summary ---
Author Organization [facility] Address [address] [place] [address]. [place] [address] [place] [address] Care Team Providers Care Progressive Die Maker Name Role Phone None, Provider Primary Care Provider Unavaila ble Encounter Details Date Type Department Care Team (Late st Contact Info) Description 06/08/2021 - 06/08/2021 11:59 PM CDT Hospital Encounter [facility] [address] [place] [place] [address] Larissa Choudhary NP [address] [place] [address] Discharge Disposition: Home or Self [...] documented as of this encounter Care Teams Progressive Die Maker Relationship Specialty Start Date End Date None, Provider, PCP - General 06/08/21 documented as of this encounter
--- OUTSIDE RECORDS SUMMARY | 2024-10-16 03:33 | XMS_ITS | Encounter Summary ---
Author Organization [facility] Address [address] [place] [address]. [place] [address] [place] [address] Care Team Providers Care Nutrition Technician Name Role Phone None, Provider Primary Care Provider Unavaila ble Encounter Details Date Type Department Care Team (Latest Contact Info) Description 07/18/2022 Travel Social History Tobacco Use Types Packs/Day [...] documented as of this encounter Care Teams Nutrition Technician Relationship Specialty Start Date End Date None, Provider, PCP - General 06/08/21 documented as of this encounter
--- OUTSIDE RECORDS SUMMARY | 2024-10-16 03:33 | XMS_ITS | Encounter Summary ---
Author Organization [facility] Address [address] [place] [address]. [place] [address] [place] [address] Care Team Providers Care Wood Preserving Plant Laborer Name Role Phone Unavailable Primary Care Provider Unavailabl e Encounter Details Date Type Department Care Team (Late st Contact Info) Description 06/07/2021 Patient Self-Triage [facility] [address] [place] [id number] [facility] Provider Social History Tobacco Use Types Packs/Day Years [...]
--- OUTSIDE RECORDS SUMMARY | 2024-10-16 03:33 | XMS_ITS | Encounter Summary ---
Author Organization [facility] Address [address] [place] [address]. [place] [address] [place] [address] Care Team Providers Care Tank Terminal Gauger Name Role Phone None, Provider Primary Care Provider Unavaila ble Encounter Details Date Type Department Care Team (Late st Contact Info) Description 06/08/2021 11:15 AM CDT Laboratory Only [facility] [address] [id number] Social History Tobacco Use Types Packs/Day Years [...] Procedure Name Priority Date/Time Associated Diagnosis Comments CORONAVIRUS (COVID 19) PCR Routine 06/08/2021 10:56 AM CDT Encounter for laboratory testing for COVID-19 virus documented in this encounter Results * CORONAVIRUS (COVID 19) PCR ([facility]) (06/08/2021 10:56 AM CDT) SPEC DESCRIPTION NASAL 06/08/20 10:57 AM CDT [facility] CORONAVIRUS SARS COV 2 PCR (RESP) NEGATIVE NEGATIVE 06/09/2021 4:26 PM CDT [facility] Comment: THE SARS-CoV-2 TEST HAS BEEN AUTHORIZED BY THE FDA UNDER AN EUA FOR USE BY AUTHORIZED LABORATORIES. PERFORMED BY NUCLEIC ACID AMPLIFICATION PCR FIRST TEST NO 06/08/2021 10:57 AM CDT [facility] EMPLOYED IN HEALTHCARE NO 06/08/2021 10:57 AM CDT [facility] SYMPTOMATIC DEFINED BY CDC YES 06/08/2021 10:57 AM CDT [facility] DATE OF SYMPTOM ONSET 2021060406/08/2021 10:57 AM CDT [facility] HOSPITALIZATION STATUS NO 06/08/2021 10:57 AM CDT [facility] PATIENT IN ICU NO 06/08/2021 10:57 AM CDT [facility] RESIDENT OF [facility] NO 06/08/2021 10:57 AM CDT [facility] NOT 06/08/2021 10:57 AM CDT [facility] NASAL STRUCTURE / Unknown 06/08/2021 10:56 AM CDT Larissa Choudhary NP MICROBIOLOGY - GENERAL CLEO BETTENCOURT Final Result [facility] [address] [place] [address], documented in this encounter Visit Diagnoses Diagnosis Encounter for laboratory testing for COVID-19 virus- Primary documented in this encounter Additional Health Concerns Infection Onset Date Last Indicated Resolved Time COVID-19 Rule Out 06/08/2021 06/08/2021 06/09/2021 4:26 PM CDT documented as of this encounter Care Teams Tank Terminal Gauger Relationship Specialty Start Date End Date None, Provider, PCP - General 06/08/21 documented as of this encounter
--- OUTSIDE RECORDS SUMMARY | 2024-10-16 03:33 | XMS_ITS | Encounter Summary ---
Author Organization [facility] Address [address] [place] [address]. [place] [address] [place] [address] Care Team Providers Care Link Trainer Maintenance Man Name Role Phone None, Provider Primary Care Provider Unavaila ble Encounter Details Date Type Department Care Team (Late st Contact Info) Description 10/11/2021 Patient Self-Triage MYCHART DEPARTMENT [address] [place] [address] Johanna, [facility] Provider Social History Tobacco Use Types [...] on filedocumented in this encounter Care Teams Link Trainer Maintenance Man Relationship Specialty Start Date End Date None, Provider, PCP - General 06/08/21 documented as of this encounter
--- OUTSIDE RECORDS SUMMARY | 2024-10-16 03:33 | XMS_ITS | Encounter Summary ---
Author Organization [facility] Address [address] [place] [address]. [place] [address] [place] [address] Care Team Providers Care Direct Service Professional Name Role Phone None, Provider Primary Care Provider Unavaila ble Encounter Details Date Type Department Care Team (Late st Contact Info) Description 06/06/2022 11:55 AM CDT Laboratory Only [facility] [address] [address] Larissa Choudhary, QUALITY ASSURANCE TECH [address] [place] [address] Social History Tobacco Use Types Packs/Day Years [...] Diagnosis Comments CORONAVIRUS (COVID 19) PCR Routine 06/06/2022 11:57 AM CDT Encounter for laboratory testing for COVID-19 virus documented in this encounter Results * (ABNORMAL) CORONAVIRUS (COVID 19) PCR ([facility]) (06/06/2022 11:57 AM CDT) SPEC DESCRIPTION NASAL 06/06/20 11:57 AM CDT [facility] CORONAVIRUS SARS COV 2 PCR (RESP) POSITIVE(AA ) NEGATIVE 06/08/2022 4:45 AM CDT [facility] Comment: THE SARS-CoV-2 TEST HAS BEEN AUTHORIZED BY THE FDA UNDER AN EUA FOR USE BY AUTHORIZED LABORATORIES. PERFORMED BY NUCLEIC ACID AMPLIFICATION PCR FIRST TEST NO 06/06/2022 11:57 AM CDT [facility] EMPLOYED IN HEALTHCARE NO 06/06/2022 11:57 AM CDT [facility] SYMPTOMATIC DEFINED BY CDC YES 06/06/2022 11:57 AM CDT [facility] DATE OF SYMPTOM ONSET 2022060106/06/2022 11:57 AM CDT [facility] HOSPITALIZATION STATUS NO 06/06/2022 11:57 AM CDT [facility] PATIENT IN ICU NO 06/06/2022 11:57 AM CDT [facility] RESIDENT OF [facility] NO 06/06/2022 11:57 AM T [facility] NOT 06/06/2022 11:57 AM T [facility] NASAL STRUCTURE / Unknown 06/06/2022 11:57 AM CDT Larissa Choudhary NP MICROBIOLOGY - GENERAL CLEO BETTENCOURT Final Result [facility] [address] [place] [address], documented in this encounter Visit Diagnoses Diagnosis Encounter for laboratory testing for COVID-19 virus- Primary documented in this encounter Additional Health Concerns Infection Onset Date Last Indicated Resolved Time COVID-19 Rule Out 06/06/2022 06/06/2022 06/08/2022 4:45 AM CDT COVID-19 Confirmed 06/06/2022 06/06/202207/01/202 2 12:32 AM CDT documented as of this encounter Care Teams Direct Service Professional Relationship Specialty Start Date End Date None, Provider, PCP - General 06/08/21 documented as of this encounter
--- OUTSIDE RECORDS SUMMARY | 2024-10-16 03:33 | XMS_ITS | Encounter Summary ---
Author Organization [facility] Address [address] [place] [address]. [place] [address] [place] [address] Care Team Providers Care Wharf Attendant Name Role Phone None, Provider Primary Care Provider Unavaila ble Encounter Details Date Type Department Care Team (Late st Contact Info) Description 06/05/2022 Patient Self-Triage MYCHART DEPARTMENT [address] [place] [address] Johanna, [facility] Provider Social History Tobacco Use Types [...] on filedocumented in this encounter Care Teams Wharf Attendant Relationship Specialty Start Date End Date None, Provider, PCP - General 06/08/21 documented as of this encounter
--- OUTSIDE RECORDS SUMMARY | 2024-10-16 03:33 | XMS_ITS | Clinical Summary ---
Author Organization [facility] Address [address] [place] [address]. [place] [address] [place] [address] Care Team Providers Care Health Diagnostics Teacher Name Role Phone None, Provider MD Primary Care Provider Unavaila ble Allergies No known active allergies Medications albuterol (PROVENTIL) (2.5 MG/3ML) 0.083% nebulizer solution Take 3 mLs by nebulization every 4 (four) hours as needed. 2 Active albuterol sulfate HFA 108 (90 Base) MCG/ACT inhaler Inhale 2 puffs into the lungs every 4 (four) hours as needed for Shortness of breath. 2 Active ARIPiprazole (ABILIFY) 2 MG tablet Take 2 mg by mouth daily. 2 Active cloNIDine ER (KAPVAY) 0.1 MG 12 hr tablet Take 0.2 mg by mouth 2 (two) times a day. 2 Active divalproex ER (DEPAKOTE) 500 MG 24 hr tablet Take 500 mg by mouth daily. Active ferrous sulfate, 65 mg elemental, 325 (65 FE) MG tablet Take 1 tablet by mouth daily with breakfast. 2 Active fluticasone-shruthi meterol (ADVAIR DISKUS) 500-50 MCG/ACT inhaler Inhale 1 puff into the lungs 2 (two) times daily. 2 Active SPIRIVA RESPIMAT 1.25 MCG/ACT inhaler (SPIRIVA RESPIMAT) Inhale 1 puff into the lungs daily. 2 Active Immunizations Name Administration Dates Next Due PFIZER COVID-19 (CRANE CAP), MRNA, LNP-S, PF, 30 MCG/0.3 ML BART-SUCROSE, IM 10/13/2021 Social History Tobacco Use Types Packs/Day Years Used Date Smoking Tobacco: Never Smokeless Tobacco: Never Alcohol Use Standard Drinks/Week Comments Never 0 (1 standard drink = 0.6 oz pur e alcohol) Comments No Sex and Gender Information Value Date Recorded Sex Assigned at Not on file Legal Sex Female 7:03 PM CDT Gender Identity Not on file Sexual Orientation Not on file Last Filed Vital Signs Vital Sign Reading Time Taken Comments Blood Pressure 97/60 07/18/2022 12:24 PM CDT Pulse 87 07/18/2022 12:24 PM CDT Temperature 36.8 ??C (98.3 ??F) 07/18/2022 8:50 AM CD T Respiratory Rate 18 07/18/2022 12:24 PM CDT Oxygen Saturation 100% 07/18/2022 12:24 PM CDT Inhaled Oxygen Concentration - - Weight 66.4 kg (146 lb 6.2 oz) 07/18/2022 8:50 A M CDT Height 162.6 cm (5' 4 ) 07/18/2022 8:50 AM CDT Body Mass Index 25.13 07/18/2022 8:50 AM CDT Plan of Treatment Health Maintenance Due Date Last Done Comments Annual Physical 2007 HPV Vaccines (2 - 2-dose series) 01/28/2018 07/30/2017 Hepatitis C 2022 DTaP, Tdap and Td Vaccines ( 2 - Tdap) 2023 11/13/2005 Hepatitis B Vaccines (1 of 3 - 19+ 3-dose series) 2023 COVID-19 Vaccine ( - 2023-2 5 season) 2024 10/13/2021, 01/14/2021, 12/23/2020 Influenza Adult (#1) 2024 07/19/2018 Meningococcal Vaccine Completed 05/31/2021 Pneumococcal Vaccine: Pediatrics (0 to 5 Years) and At-Risk Patients (6 to 64 Years) Aged Out No longer eligible b ased on patient's age to complete this topic RSV Immunizations Under 20 Months Aged Out No longer eligible b ased on patient's age to complete this topic Insurance [facility] Care Teams Health Diagnostics Teacher Relationship Specialty Start Date End Date None, Provider, PCP - General 06/08/21
--- OUTSIDE RECORDS SUMMARY | 2024-10-16 03:33 | XMS_ITS | Encounter Summary ---
Author Organization [facility] Address [address] [place] [address]. [place] [address] [place] [address] Care Team Providers Care Accounting Clerks Supervisor Name Role Phone None, Provider Primary Care Provider Unavaila ble Encounter Details Date Type Department Care Team (Latest Contact Info) Description 06/06/2022 Travel Social History Tobacco Use Types Packs/Day [...] documented as of this encounter Care Teams Accounting Clerks Supervisor Relationship Specialty Start Date End Date None, Provider, PCP - General 06/08/21 documented as of this encounter
--- OUTSIDE RECORDS SUMMARY | 2024-10-16 03:33 | XMS_ITS | Encounter Summary ---
Author Organization [facility] Address [address] [place] [address]. [place] [address] [place] [address] Care Team Providers Care Applications Programmer Name Role Phone None, Provider Primary Care Provider Unavaila ble Encounter Details Date Type Department Care Team (Late st Contact Info) Description 10/13/2021 3:30 PM KITCHEN STEWARD/STEWARDESS Flu/Imm Clinic [facility] Medical [address] [address] Chuy Slater MD [address] [place] [address] Social History Tobacco Use Types Packs/Day Years Used Date Smoking Tobacco: Never Assessed Comments No Sex and Gender Information Value Date Recorded Sex Assigned at Not on file Legal Sex Female 7:03 PM CDT Gender Identity Not on file Sexual Orientation Not on file documented as of this encounter Plan of Treatment Not on file documented as of this encounter Visit Diagnoses Diagnosis Need for prophylactic vaccination against viral disease- Primary Need for prophylactic vaccination and inoculation against other viral diseases documented in this encounter Care Teams Applications Programmer Relationship Specialty Start Date End Date None, Provider, PCP - General 06/08/21 documented as of this encounter
--- OUTSIDE RECORDS SUMMARY | 2024-10-16 03:34 | XMS_ITS | Encounter Summary ---
Author Organization [facility] Address [address] [place] [address]. [place] [address] [place] [address] Care Team Providers Care Biometric Fingerprinting Technician Name Role Phone Adan Ibarra MD Primary Care Provider Unavailable Encounter Details Date Type Department Care Team (Late st Contact Info) Description 12/30/2016 Emergency [facility] [place] [address] Jl Schultz MD [facility] [place] [address] Social History Tobacco Use Types Packs/Day Years Used Date Smoking Tobacco: Never Assessed Comments Unknown Sex and Gender Information Value Date Recorded Sex Assigned at Not on file Legal Sex Female 7:03 PM CDT Gender Identity Not on file Sexual Orientation Not on file documented as of this encounter Plan of Treatment Not on file documented as of this encounter Visit Diagnoses Diagnosis Muscle spasm of back Other symptoms referable to back documented in this encounter Care Teams Biometric Fingerprinting Technician Relationship Specialty Start Date End Date Adan Ibarra MD PCP - General 12/30/16 documented as of this encounter
--- OUTSIDE RECORDS SUMMARY | 2024-10-16 03:34 | XMS_ITS | Encounter Summary ---
Author Organization [facility] Address [address] [place] [address]. [place] [address] [place] [address] Care Team Providers Care Energy Assistant Name Role Phone Unavailable Primary Care Provider Unavailabl e Reason for Visit * Reason Comments Obrien Encounter Details Date Type Department Care Team (Late st Contact Info) Description 02/24/2018 12:05 AM CDT - 02/24/2018 3:07 AM CDT Emergency [facility] [place] [address] Faizan Wood MD [address] [facility] [id number] [place] [address] Obrien Discharge Disposition: Home or Self Care (Routine Discharge) Social History Tobacco Use Types Packs/Day Years Used Date Smoking Tobacco: Never Assessed Comments No Sex and Gender Information Value Date Recorded Sex Assigned at Not on file Legal Sex Female 7:03 PM CDT Gender Identity Not on file Sexual Orientation Not on file documented as of this encounter Last Filed Vital Signs Vital Sign Reading Time Taken Comments Blood Pressure 118/81 02/24/2018 2:03 AM CDT Pulse 96 02/24/2018 2:03 AM CDT Temperature 36.3 ??C (97.4 ??F) 02/24/2018 12:05 AM C DT Respiratory Rate 18 02/24/2018 2:03 AM CDT Oxygen Saturation 100% 02/24/2018 2:03 AM CDT Inhaled Oxygen Concentration - - Weight 72.6 kg (160 lb) 02/24/2018 12:05 AM CDT Height 162.6 cm (5' 4 ) 02/24/2018 12:05 AM CDT Body Mass Index 27.46 02/24/2018 12:05 AM CDT Body Mass Index Percentile 95.47% 02/24/2018 12: 05 AM CDT Growth Chart: [facility] (Girls, 2- 20 Years) documented in this encounter Discharge Instructions * Discharge Instructions* Faizan Wood MD - 02/24/2018 2:37 AM CDT Images from the original note were not included. Patient Education Sunburn Discharge Instructions About this topic Sunburn makes the skin red, tender, and often swollen. It can also make the skin dry and sore to touch. A sunburn is caused by the skin's reaction to ultraviolet rays from the sun. These are UV rays.They cannot be seen but can harm your skin and eyes. They may also cause skin cancer. Redness from sunburn shows up 3 to 5 hours after being in the sun. The redness is the worst 12 to 72 hours after and fades over the next 72 hours. Your skin is protected by something called melanin. How easily your skin will burn is based on the amount of melanin in your skin. It also depends on where you are, such as close to the equator or [facility]. Sunburn can cause redness, pain, blisters, chills, headache, and fever. Sunburns canlead to early aging, freckles, wrinkles, dehydration, heat stroke, and skin cancer. What care is needed at home? ?? Ask your doctor what you need to do when you go home. Make sure you ask questions if you do not understand what the doctor says. This way you will know what you need to do. ?? Avoid being out in the sun or outdoor activities until your skin is fully healed. Too much sun may make the problem worse. ?? Remember, you can still get a sunburn on a cloudy day. The sun's rays are reflected by sand, snow, cement, and water. ?? Try taking a cool shower or bath to ease the burn. A cold cloth on your skin may also help ease the pain. ?? Ask your doctor what products are safe to use to keep the skin moist. ?? Do not pick or break blisters. Cover them with bandages. ?? Do not peel your skin when it starts to dry, flake, and come off. This will make it worse. ?? Avoid sunlamps and tanning beds. What follow-up care is needed? Your doctor may ask you to make visits to the office to check on your progress. Be sure to keep these visits. What drugs may be needed? The doctor may order drugs to: ?? Help with pain and swelling ?? Fight an infection Will physical activity be limited? You may want to limit your movements because of pain. What changes to diet are needed? Drink at least 6 to 8 glasses of fluids each day. What problems could happen? Being in the sun for a long time can cause heat stroke or heat exhaustion. The signs include fever,headache, confusion, nausea or throwing up, blurry vision, or fainting. Call your doctor if you getany of these signs. Too many sunburns may lead to skin cancer. What can be done to prevent this health problem? ?? Some drugs can make you very sensitive to the sun. This may make it easier for you to burn. Talkto your doctor about the drugs you are taking. ?? Use sunblock. ?? Apply large amounts of sunblock. Make sure it has an SPF (sun protection factor) of at least 30. ?? Make sure you put it on your face, nose, ears, and shoulders. ?? Apply sunblock 30 minutes before going out in the sun. ?? Put it on again after swimming or sweating and every 2 hours when outdoors. ?? Use a lip balm with sunscreen. ?? Many cosmetics, moisturizers, and lip balms have sunscreen in them. ?? Protect your skin and eyes. ?? Wear sun hats. ?? Wear sunglasses with UV protection. ?? Wear loose, cotton long sleeve shirts and long pants. ?? Avoid being in the sun between the hours of 10 AM and 4 PM. When do I need to call the doctor? ?? Signs of infection. These include a fever of 100.4??F (38??C) or higher or chills. ?? Pale, clammy, or cool skin ?? Upset stomach, nausea, throwing up, feeling faint or dizzy ?? Your eyes hurt and are sensitive to light, or you have blurry vision ?? Very bad headache ?? Confusion ?? Your pulse is very fast ?? You are very thirsty ?? You cannot pass urine ?? You have very painful or infected blisters Teach Back: Helping You Understand The Teach Back Method helps you understand the information we are giving you. The idea is simple. After talking with the staff, tell them in your own words what you were just told. This helps to makesure the staff has covered each thing clearly. It also helps to explain things that may have been abit confusing. Before going home, make sure you are able to do these: ?? I can tell you about my condition. ?? I can tell you how to care for my skin after a sunburn. ?? I can tell you how to protect myself from another sunburn. ?? I can tell you what I will do if I have an upset stomach, nausea, or am throwing up. Where can I learn more? [employer] https://www.aad.org/public/kids/skin/skin-cancer/treating-sunburn [employer] http://www.healthychildren.org/[place]/ages-stages/baby/gjxlyvb-slnm-qrqw/Pages/ Rzde-Idiriuq-Lwqwaptngu.aspx Skin Cancer Foundation http://www.skincancer.org/prevention/sunburn/tzxc-duyl-dx-rjqjl-p-vtyiljt Last Reviewed Date 2016-06-15 Consumer Information Use and Disclaimer This information is not specific medical advice and does not replace information you receive from your health care provider. This is only a brief summary of general information. It does NOT include all information about conditions, illnesses, injuries, tests, procedures, treatments, therapies, discharge instructions or life-style choices that may apply to you. You must talk with your health care provider for complete information about your health and treatment options. This information should not be used to decide whether or not to accept your health care provider???s advice, instructions or recommendations. Only your health care provider has the knowledge and training to provide advice that is right for you. Copyright Copyright ?? 2018 [employer] and its affiliates and/or licensors. All rights reserved. documented in this encounter ED Notes * Naresh Youngblood RN - 02/24/2018 3:06 AM CDT Pt seen, treated, and discharged without any nursing intervention required * Faizan Wood MD - 02/24/2018 2:35 AM CDT Chief Complaint Chief Complaint Patient presents with ??? Obrien History of Present Illness HPI Comments: 12 year old female presents with sunburn after spending 6 hours in the sun today. Sheused sunscreen but remained exposed in the sun for 6 hours. She has been using aloe and ibuprofen for pain. No other symptoms. Medical History ALLERGIES: No Known Allergies MEDICATIONS: Prior to Admission medications Not on File PAST MEDICAL HISTORY: No past medical history on file. PAST SURGICAL HISTORY: No past surgical history on file. FAMILY HISTORY: No family history on file. SOCIAL HISTORY: Social History Substance Use Topics ??? Smoking status: Not on file ??? Smokeless tobacco: Not on file ??? Alcohol use Not on file Review of Systems Review of Systems Skin: sunburn All other systems reviewed and are negative. Physical Exam Filed Vitals: 02/24/18 0005 02/24/18 0203 BP: (!) 118/80 (!) 118/81 Pulse: 98 96 Resp: 18 18 Temp: 97.4 ??F (36.3 ??C) TempSrc: Oral SpO2: 99% 100% Weight: 72.6 kg (160 lb) Height: 5' 4 (1.626 m) Physical Exam Constitutional: She is oriented to person, place, and time. No distress. Cardiovascular: Normal rate, normal heart sounds and intact distal pulses. Pulmonary/Chest: Effort normal and breath sounds normal. No respiratory distress. Abdominal: Soft. Musculoskeletal: Normal range of motion. Neurological: She is alert and oriented to person, place, and time. She exhibits normal muscle tone. Skin: There is erythema. Erythematous superficial obrien on chest, back, abdomen, legs, and arms Diagnostic Studies / Procedures ELECTROCARDIOGRAMS: No results found for this visit on 02/24/18. LABORATORY STUDIES: No results found for this visit on 02/24/18. IMAGING STUDIES No orders to display ED Course / Medical Decision Making Clinical Impression Sunburn (Primary) Disposition: Discharge Faizan Wood MD 02/24/18 0238 * Christian Drummond RN - 02/24/2018 12:03 AM CDT Got a sunburn today. Superficial obrien noted to legs and shoulders. CHRISTIAN DRUMMOND RN documented in this encounter Plan of Treatment Not on file documented as of this encounter Visit Diagnoses Diagnosis Sunburn- Primary documented in this encounter
--- OUTSIDE RECORDS SUMMARY | 2024-10-16 03:34 | XMS_ITS | Encounter Summary ---
Author Organization [facility] Address [address] [place] [address]. [place] [address] [place] [address] Care Team Providers Care Wet Machine Tender Name Role Phone Adan Ibarra MD Primary Care Provider Unavailable Encounter Details Date Type Department Care Team (Late st Contact Info) Description 08/04/2017 Scan [facility] CONVERSION [place], [place] [id number] Adan Ibarra MD Social History Tobacco Use Types Packs/Day Years [...] on filedocumented in this encounter Care Teams Wet Machine Tender Relationship Specialty Start Date End Date Adan Ibarra MD PCP - General 12/30/16 documented as of this encounter
--- OUTSIDE RECORDS SUMMARY | 2024-10-16 03:35 | XMS_ITS | Encounter Summary ---
Author Organization [facility] Healthcare Address [address] [place] [address] Care Team Providers Care Sales Lead Name Role Phone Bassem Cho MD Unavailable [phone] Cortney Pineda NP Primary Care Provider [phone] Reason for Visit * Reason Comments Animal Bite Encounter Details Date Type Department Care Team (Late st Contact Info) Description 07/05/2023 5:12 PM CDT - 07/05/2023 6:29 PM CDT Emergency [address] [address] Dog bite of left knee, initial encounter (Primary Dx) Discharge Disposition: Discharge to home or self care Social History Tobacco Use Types Packs/Day Years Used Date Smoking Tobacco: Never Smokeless Tobacco: Never Alcohol Use Standard Drinks/Week Comments No 0 (1 standard drink = 0.6 oz pur e alcohol) PHQ-2 Answer Date Recorded PHQ-2 TOTAL SCORE 3 09/07/2022 Personal Safety Answer Date Recorded Have you ever been in or are you currently in a harmful physical or emotional relationship or is someone making you feel afraid or unsafe? 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 01/07/2021 9:24 AM CDT Sexual Orientation Not on file documented as of this encounter Last Filed Vital Signs Vital Sign Reading Time Taken Comments Blood Pressure 116/81 07/05/2023 3:41 PM CDT Pulse 82 07/05/2023 3:41 PM CDT Temperature 36.5 ??C (97.7 ??F) 07/05/2023 3:41 PM CD T Respiratory Rate 16 07/05/2023 3:41 PM CDT Oxygen Saturation 100% 07/05/2023 3:41 PM CDT Inhaled Oxygen Concentration - - Weight 86.2 kg (190 lb) 07/05/2023 3:41 PM CDT Height 162.6 cm (5' 4 ) 07/05/2023 3:41 PM CDT Body Mass Index 32.61 07/05/2023 3:41 PM CDT Body Mass Index Percentile 95.89% 07/05/2023 3:4 1 PM CDT Growth Chart: [facility] (Girls, 2- 20 Years) documented in this encounter Discharge Instructions * Discharge Instructions* Robby Anthony PA - 07/05/2023 6:18 PM CDT Thank you for giving us the opportunity to care for you today. If at any point you are becoming more ill, or if your symptoms persist, please call your doctor or return to the Emergency Department. You are always welcome back. Please follow up with your primary care physician within the next 1-3 days to discuss your ER visit. If you were given a referral from the Emergency Department, please callthe number on your discharge paperwork. Utilize all prescriptions or OTC medications as instructed,continue all home medications unless otherwise instructed, and please follow all discharge instructions give both verbally and/or printed. Robby Anthony PA-C * Attachments The following attachments cannot be sent through Care Everywhere. * Animal Bite (AfterCare(R) Instructions(ER/ED)) ([place]) documented in this encounter Medications at Time of Discharge Advair Diskus 500-50 mcg/dose diskus inhaler Inhale 1 puff 2 (two) times a day 05/24/2021 albuterol (PROVENTIL,OLIVER ANDRY) 2.5 mg /3 mL (0.083 %) nebulizer solution Take 3 mL (2.5 mg total) by nebulization every 4 (four) hours as needed for wheezing or shortness of breath albuterol HFA (PROVENTIL HFA,VENTOLIN HFA,PROAIR HFA) 90 mcg/actuation inhaler Inhale 2 puffs every 6 (six) hours as needed for wheezing or shortness of breath ARIPiprazole (ABILIFY) 2 mg tablet Take 1 tablet (2 mg total) by mouth daily 30 tablet 8 12/14/2022 cannabidiol, CBD, (CANNABIDIOL ORAL) Take 5 mg/kg by mouth 2 (two) times a day 60mg cannabidiol, CBD, (medical cannabis) each 1 Dose as needed With THC divalproex ER (DEPAKOTE ER) 500 mg 24 hr tablet Take 1 tablet (500 mg total) by mouth daily ergocalciferol (Vitamin D2) 50,000 unit capsule Take 1 capsule (50,000 Units total) by mouth once a week 4 capsule 8 12/14/2022 FLUoxetine (PROzac) 20 mg capsule Take 1 capsule (20 mg total) by mouth daily ibuprofen (ADVIL,MOTRIN) suspension 100 mg/5 mLIndications:la st dose 1300 Take by mouth every 4 (four) hours as needed for pain medroxyPROGESTER one (Depo-Provera) 150 mg/mL injection as directed mometasone-formo terol (Dulera) 200-5 mcg/actuation inhaler every 12 hours 07/24/2022 predniSONE (DELTASONE) 20 mg tablet daily 12/11/2022 venlafaxine XR (EFFEXOR-XR) 37.5 mg 24 hr capsule 06/11/2023 amoxicillin-clav ulanate (AUGMENTIN) 875-125 mg per tabletIndication s:Skin/Soft Tissue Infection Take 1 tablet by mouth every 12 (twelve) hours for 5 days 10 tablet 07/05/2023 3 clonazePAM (KlonoPIN) 1 mg tablet Take 1 tablet (1 mg total) by mouth 3 (three) times a day Ct stated only taking 1x day and plans to go back to 3x day as ct id it helps with her anxiety. 3 cloNIDine ER (KAPVAY) 0.1 mg tablet extended release 12 hr Take 2 tablets (0.2 mg total) by mouth 2 (two) times a day 120 tablet 8 12/14/2022 3 meloxicam (MOBIC) 7.5 mg tabletIndication s:acute pain Take 1 tablet (7.5 mg total) by mouth every 12 (twelve) hours as needed for pain 15 tablet 01/09/2023 3 orphenadrine ER (NORFLEX) 100 mg 12 hr tabletIndication s:Muscle Spasm Take 1 tablet (100 mg total) by mouth 2 (two) times a day 15 tablet 01/09/2023 3 rizatriptan (MAXALT) 10 mg tabletIndication s:Migraine Take 1 tablet (10 mg total) by mouth once as needed for migraine May repeat in 2 hours if unresolved. Do not exceed 30 mg in 24 hours. 9 tablet 8 12/14/2022 3 venlafaxine XR (EFFEXOR-XR) 150 mg 24 hr capsule Take 1 capsule (150 mg total) by mouth daily 3 documented as of this encounter Ordered Prescriptions Prescription Sig Dispense Quantity Refills Last Filled Start Date End Date amoxicillin-clavul anate (AUGMENTIN) 875-125 mg per tabletIndications: Skin/Soft Tissue Infection Take 1 tablet by mouth every 12 (twelve) hours for 5 days 10 tablet 07/05/2023 07/10/2023 documented in this encounter Discharge Disposition Disposition Code Departure Means Destination Comment s Discharge to home or self care documented in this encounter ED Notes * Lakisha Beth RN - 07/05/2023 6:27 PM CDT Wound was irrigated by JERRY Singh. This RN applied bacitracin and bandaid to puncture wounds on leftknee. Lakisha Beth RN 07/05/23 1828 * Robby Anthony PA - 07/05/2023 3:53 PM CDT Chief Complaint Patient presents with Animal Bite HPI Lexie Oconnell is a 17 y.o. adult who presents to the ED with complaints of dog bite to [facility] that happened just prior to arrival. States that the dog is her friend's dog unknown if up-to-date with rabies vaccine. The dog has been quarantine by animal control. Reports a mild amount of bleeding from the puncture wounds no swelling or drainage. Up-to-date with tetanus. Ambulatory withoutdifficulty. No other modifying factors or associated symptoms. History provided by patient PCP: Cortney Pineda NP MEDICAL HISTORY Past Medical History: Diagnosis Date Bipolar 1 disorder (HCC) Dorsalgia Mid back pain - (Added by TW Conv) Metatarsal fracture Migraines Prematurity 29 weeks SURGICAL HISTORY Past Surgical History: Procedure Laterality Date NO PAST SURGERIES FAMILY HISTORY Family History Problem Relation Age of Onset Arthritis Mother Low Back Pain Mother Migraines Mother Spondylolisthesis Mother Bleeding Disorder Mother Menstrual problems Mother Hypertension Mother Factor V Leiden Mother Arthritis Father Low Back Pain Father Migraines Father Hypertension Father Thyroid disease Father Menstrual problems Other Periods, menstrual, difficult - Relation: Grandmother (Added by TW Conv) Menstrual problems Other Periods, menstrual, difficult - Relation: Aunt (Added by TW Conv) Uterine cancer Other Family history of uterine leiomyoma - Relation: Grandmother (Added by TW Conv) Hypertension Other Family history of hypertension - Relation: Grandparent (Added by TW Conv) Factor V Leiden Maternal Grandmother CURRENT HOME MEDICATIONS No current facility-administered medications for this encounter. Current Outpatient Medications Medication Sig Dispense Refill Advair Diskus 500-50 mcg/dose diskus inhaler Inhale 1 puff 2 (two) times a day albuterol (PROVENTIL,VENTOLIN) 2.5 mg /3 mL (0.083 %) nebulizer solution Take 3 mL (2.5 mg total) by nebulization every 4 (four) hours as needed for wheezing or shortness of breath albuterol HFA (PROVENTIL HFA,VENTOLIN HFA,PROAIR HFA) 90 mcg/actuation inhaler Inhale 2 puffs every6 (six) hours as needed for wheezing or shortness of breath amoxicillin-clavulanate (AUGMENTIN) 875-125 mg per tablet Take 1 tablet by mouth every 12 (twelve) hours for 5 days 10 tablet 0 ARIPiprazole (ABILIFY) 2 mg tablet Take 1 tablet (2 mg total) by mouth daily 30 tablet 8 cannabidiol, CBD, (CANNABIDIOL ORAL) Take 5 mg/kg by mouth 2 (two) times a day 60mg cannabidiol, CBD, (medical cannabis) each 1 Dose as needed With THC clonazePAM (KlonoPIN) 1 mg tablet Take 1 tablet (1 mg total) by mouth 3 (three) times a day Ct stated only taking 1x day and plans to go back to 3x day as ct id it helps with her anxiety. (Patient not taking: Reported on 06/27/2023) cloNIDine ER (KAPVAY) 0.1 mg tablet extended release 12 hr Take 2 tablets (0.2 mg total) by mouth 2(two) times a day 120 tablet 8 divalproex ER (DEPAKOTE ER) 500 mg 24 hr tablet Take 1 tablet (500 mg total) by mouth daily ergocalciferol (Vitamin D2) 50,000 unit capsule Take 1 capsule (50,000 Units total) by mouth once aweek 4 capsule 8 FLUoxetine (PROzac) 20 mg capsule Take 1 capsule (20 mg total) by mouth daily ibuprofen (ADVIL,MOTRIN) suspension 100 mg/5 mL Take by mouth every 4 (four) hours as needed for pain medroxyPROGESTERone (Depo-Provera) 150 mg/mL injection as directed meloxicam (MOBIC) 7.5 mg tablet Take 1 tablet (7.5 mg total) by mouth every 12 (twelve) hours as needed for pain (Patient not taking: Reported on 06/27/2023) 15 tablet 0 orphenadrine ER (NORFLEX) 100 mg 12 hr tablet Take 1 tablet (100 mg total) by mouth 2 (two) times aday (Patient not taking: Reported on 06/27/2023) 15 tablet 0 predniSONE (DELTASONE) 20 mg tablet daily rizatriptan (MAXALT) 10 mg tablet Take 1 tablet (10 mg total) by mouth once as needed for migraine May repeat in 2 hours if unresolved. Do not exceed 30 mg in 24 hours. 9 tablet 8 venlafaxine XR (EFFEXOR-XR) 150 mg 24 hr capsule Take 1 capsule (150 mg total) by mouth daily (Patient not taking: Reported on 06/27/2023) SOCIAL HISTORY Social History Tobacco Use Smoking status: Never Smokeless tobacco: Never Substance and Sexual Activity Drug use: No Sexual activity: Not on file Alcohol Use: Not on file PHYSICAL EXAM Vitals: 07/05/23 1541 BP: 116/81 BP Location: Right arm Patient Position: Sitting Pulse: 82 Resp: 16 Temp: 36.5 ??C (97.7 ??F) TempSrc: Oral SpO2: 100% Weight: 86.2 kg (190 lb) Height: 162.6 cm (5' 4 ) Physical Exam Vitals and nursing note reviewed. Constitutional: General: She is not in acute distress. Appearance: Normal appearance. She is not ill-appearing or toxic-appearing. HENT: Head: Normocephalic and atraumatic. Nose: Nose normal. Eyes: General: No scleral icterus. Extraocular Movements: Extraocular movements intact. Musculoskeletal: General: Signs of injury present. No deformity. Normal range of motion. Cervical back: Normal range of motion and neck supple. Comments: Three small superficial puncture wounds to the anterior left knee. No active bleeding or drainage. No surrounding erythema, warmth or or tenderness. Full active range of motion to the left knee. Ambulatory without difficulty. Good neurovascular status. Skin: General: Skin is warm and dry. Capillary Refill: Capillary refill takes less than 2 seconds. Findings: No rash. Neurological: General: No focal deficit present. Mental Status: She is alert and oriented to person, place, and time. Psychiatric: Mood and Affect: Mood normal. Behavior: Behavior normal. Thought Content: Thought content normal. LABS Labs Reviewed - No data to display IMAGING/DIAGNOSTICS No orders to display No results found. EKG ED PROGRESS IMPRESSION Dog bite of left knee, initial encounter MDM Patient was interviewed and examined. Nursing notes were reviewed and the EMR was searched for old records and reviewed if present. Any ordered laboratory, EKG, and radiologic studies were reviewed and the results considered in the medical decision making process. A wide differential diagnosis was considered to exclude life & limb threatening emergencies. Patient is a 17 y.o. female who presented to the ED complaining of dog bite to left knee Differential diagnosis for patient's complaints and presentation would include but is not limited to: Fracture, dislocation, deep versus superficial puncture wound, abscess, cellulitis ED COURSE / TESTING / RESULTS / INTERVENTIONS Patient is afebrile, hemodynamically stable, nontoxic appearing. Puncture wounds are superficial and since there is no gross cutaneous deformity will hold off on closure at this time. Wounds were thoroughly irrigated and patient was given fresh stressing. No signs of cellulitis. Ambulatory. Good neurovascular status. Up-to-date with tetanus. Animal is under animal Control quarantine. Discussed with patient and mother that if animal displays signs or symptoms of rabies to go to the health department or return to the emergency department for rabies injection series. Will prescribe short course of Augmentin for infection prophylaxis. Return precautions given. ED course and discharge diagnosis discussed with patient. Patient given discharge and follow up instructions in print as well as verbally by myself. Patient instructed to follow up with PCP w/in 1-3 days regarding emergency department course. Patient to return to ED for re-evaluation for any new or worsening symptoms, if they feel their symptoms have not improved within 12-24 hours, or for any other concerns. Patient verbalizes understanding and agreement with the above. Patient is discharged in stable and/or improved condition. JESE Christiansen-C Follow Up Information [address] [address] Go to As needed, If symptoms worsen Cortney Pineda, PSYCHIATRIC NURSING ASSISTANT [address] [facility] [phone] Go to If symptoms worsen This note was transcribed using the wunderloop voice recognition system without human marine equipment test engineer. In an effort to expedite patient care, this report has not been adjusted for typographical, grammatical, and syntax by a trained medical lab tech instructor. Please ignore any minor grammatical mistakes. Robby Anthony PA 07/05/23 1834 Cosigned by Kris Galicia MD at 07/05/2023 8:10 PM CDT Associated attestation - Kris Galicia MD - 07/05/2023 8:10 PM CDT ED Attestation Based on the medical record, the care appears appropriate. * Juanis Gonzalez, RN - 07/05/2023 3:47 PM CDT Pt ambulatory to triage after being bit in her left knee by her friends dog. 3 puncture wong noted. Unknown if animal is up to date on shots. AOx4, NAD noted, skin pwd, resp even and non labored. Dog is being quarantined. documented in this encounter Plan of Treatment Not on file documented as of this encounter Visit Diagnoses Diagnosis Dog bite of left knee, initial encounter- Primary documented in this encounter Administered Medications Inactive Administered Medications - up to 3 most recent administrations Medication Order MAR Action Action Date Dose Rate Site sodium chloride 0.9% irrigation 1,000 mL 1,000 mL, irrigation, Once, On Mami 07/05/23 at 1555, For 1 dose Given 07/05/2023 5:16 PM CDT 1,000 mL documented in this encounter Active and Recently Administered Medications Times are shown in CDT. Scheduled Medication Order 07/03/2023 07/04/2023 07/05/2023 sodium chloride 0.9% irrigation 1,000 mL (COMPLETED) 1,000 mL, irrigation, Once, On Mami 07/05/23 at 1555, For 1 dose 1716 (Given - Provid er: Samantha Grove RN) documented in this encounter Care Teams Sales Lead Relationship Specialty Start Date End Date Cortney Pineda NP [address] [place] [address] PCP - General 06/09/19 Bassem Cho MD [address] [facility] [address] [place] [address] [place] [id number] 12/20/18 documented as of this encounter
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
--- OUTSIDE RECORDS SUMMARY | 2024-10-16 03:35 | XMS_ITS | Encounter Summary ---
Author Organization [facility] Address [address] [place] [address] Phone Care Team Providers Care Fisher Hand Line Name Role Phone Bassem Cho MD Unavailable Cortney Pineda NP Primary Care Provider [phone] Reason for Referral * Medication Authorization (Routine) - Closed Specialty Diagnoses / Procedures Referred By Contac t Referred To Contact Diagnoses Encounter for management and injection of depo-Provera Jimena Lim MD [address] [place] [address] Phone: tel: fax: Referral ID Status Reason Start Date Expiration Date Visits Re quested Visits Authorized [id number] Closed 03/22/2023 04/20/2024 6 6 Reason for Visit * Medication Authorization (Routine) - Closed Specialty Diagnoses / Procedures Referred By Contac t Referred To Contact Diagnoses Encounter for management and injection of depo-Provera Jimena Lim MD [address] [place] [address] Phone: tel: fax: Referral ID Status Reason Start Date Expiration Date Visits Re quested Visits Authorized [id number] Closed 03/22/2023 04/20/2024 6 6 Encounter Details Date Type Department Care Team (Late st Contact Info) Description 03/22/2023 11:30 AM CDT Office Visit [facility] Pediatrics [address] [place] [address] Jimena Lim MD [address] [place] [address] Encounter for management and injection of depo-Provera (Primary Dx) Social History Tobacco Use Types Packs/Day Years Used Date Smoking Tobacco: Never Smokeless Tobacco: Never Alcohol Use Standard Drinks/Week Comments No 0 (1 standard drink = 0.6 oz pur e alcohol) PHQ-2 Answer Date Recorded PHQ-2 TOTAL SCORE 3 09/07/2022 Comments No Sex and Gender Information Value Date Recorded Sex Assigned at Not on file 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 01/07/2021 9:24 AM CDT Sexual Orientation Not on file documented as of this encounter Progress Notes * Jimena Lim MD - 03/22/2023 11:30 AM CDT Images from the original note were not included. Lexie Oconnell is a 17 y.o. adult here for repeat Depo Provera injection. Patient prefers they/them, he/him pronouns but not in front of parents. Patient presents alone and discussed gender queer identity, difficulty with sharing this identity with parents, plan to obtain a binder, and desire for trans care in the future. Patient requests thisinformation stays private. HPI Date of first depo: 07/05/21 Last injection: 12/28/22 Weeks since last injection: 12 Weight change since last appointment: n/a Reason for Depo Provera use: menstrual suppression Side effects: none Medication interactions: No Interested in continuing? Yes PAST MEDICAL, SURGICAL, FAMILY, AND SOCIAL HISTORY Patient's past medical, surgical, family, and social histories were reviewed during this encounter and updated as appropriate. MEDICATIONS Patient's medications have been reviewed during this encounter and updated as appropriate. ALLERGIES Allergies Allergen Reactions Breo Ellipta [Fluticasone Furoate-Vilanterol] Rash Fluticasone Hives Hives Vilanterol Hives Hives EXAM There were no vitals taken for this visit. Constitutional: Patient is oriented to person, place, and time and well- developed, well-nourished, and in no distress. Pulmonary/Chest: Effort normal Neurological: patient is alert and oriented to person, place, and time. Gait normal. Psychiatric: affect and speech normal. ASSESSMENT AND PLAN Patient started DMPA for menorrhagia and desires to continue it for continued menstrual suppression. Continue Depo Provera - 150 mg IM today. Reviewed risks, benefits, normal side effects of irregularbleeding or amenorrhea, possible weight gain, and the concern over decreased bone density with prolonged use. Encouraged follow up in 11-12 weeks. Administrations This Visit medroxyPROGESTERone (DEPO-PROVERA) 150 mg/mL injection 150 mg Admin Date 03/22/2023 Action Given Dose 150 mg Route intramuscular Administered By Susie Linares Michelle Lim MD, MPH documented in this encounter Plan of Treatment Not on file documented as of this encounter Visit Diagnoses Diagnosis Encounter for management and injection of depo-Provera- Primary documented in this encounter Administered Medications Inactive Administered Medications - up to 3 most recent administrations Medication Order MAR Action Action Date Dose Rate Site medroxyPROGESTERone (DEPO-PROVERA) 150 mg/mL injection 150 mg 150 mg, intramuscular, Once, On Mami 03/22/23 at 1015, For 1 dose, Javon wellIndications:Encounte r for management and injection of depo-Provera Given 03/22/2023 12:01 PM CDT 150 mg Left Dorsogluteal/Butto ck documented in this encounter Care Teams Fisher Hand Line Relationship Specialty Start Date End Date Cortney Pineda NP [address] [place] [address] PCP - General 06/09/19 Bassem Cho MD [address] [address] [place] [id number] 12/20/18 documented as of this encounter
--- OUTSIDE RECORDS SUMMARY | 2024-10-16 03:35 | XMS_ITS | Encounter Summary ---
Author Organization [facility] Address [address] [place] [address] Care Team Providers Care Exercise Planner Name Role Phone Bassem Cho MD Unavailable [phone] Cortney Pineda NP Primary Care Provider [phone] Encounter Details Date Type Department Care Team (Late st Contact Info) Description 06/27/2023 11:45 AM CDT Lab [address] [address] Subclinical hypothyroidism Social History Tobacco Use Types Packs/Day Years Used Date Smoking Tobacco: Never Smokeless Tobacco: Never Alcohol Use Standard Drinks/Week Comments No 0 (1 standard drink = 0.6 oz pur e alcohol) PHQ-2 Answer Date Recorded PHQ-2 TOTAL SCORE 3 09/07/2022 Comments No Sex and Gender Information Value Date Recorded Sex Assigned at Not on file Legal Sex Female 6:43 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 01/07/2021 9:24 AM CDT Sexual Orientation Not on file documented as of this encounter Plan of Treatment Not on file documented as of this encounter Procedures Procedure Name Priority Date/Time Associated Diagnosis Comments THYROID FUNCTION CASCADE Routine 06/27/2023 12:04 PM CDT Subclinical hypothyroidism THYROID PEROXIDASE ANTIBODY Routine 06/27/2023 12:04 PM CDT Subclinical hypothyroidism documented in this encounter Results * Thyroid peroxidase antibody (TPO) (06/27/2023 12:04 PM CDT) Anti Thyroid Peroxidase <30 <=34 units/mL [facility] Comment: ATPO Interpretive Data Results may be up to 28% higher in patients receiving Itraconazole. Current interpretive data was last revised 2020. Testing performed by: [facility], [address] [facility], [place]., [address] Blood 06/27/2023 12:0 4 PM CDT 06/28/2023 9:44 AM CDT us Lauro Andres MD LAB BLOOD ORDERABLE S Final Result [facility] [address] Department of Laboratories [place], [place] [id number] * TSH reflex to free T4 (06/27/2023 12:04 PM CDT) TSH 1.22 0.30 - 4.20 mcIUnit/mL [facility] Blood 06/27/2023 12:0 4 PM CDT 06/27/2023 6:57 PM CDT us Lauro Andres MD LAB BLOOD ORDERABLE S Final Result [facility] [address] Department of [employer] [place], [place] [id number] documented in this encounter Visit Diagnoses Diagnosis Subclinical hypothyroidism Other specified acquired hypothyroidism documented in this encounter Care Teams Exercise Planner Relationship Specialty Start Date End Date Cortney Pineda NP [address] [place] [address] PCP - General 06/09/19 Bassem Cho MD [address] [place] [id number] 12/20/18 documented as of this encounter
--- OUTSIDE RECORDS SUMMARY | 2024-10-16 03:35 | XMS_ITS | Encounter Summary ---
Author Organization [facility] Healthcare Address [address] [place] [address] Care Team Providers Care Voip Network Engineer Name Role Phone Bassem Cho MD Unavailable [phone] Cortney Pineda NP Primary Care Provider [phone] Reason for Referral * Diagnostic Imaging (Routine) - Closed Specialty Diagnoses / Procedures Referred By Contac t Referred To Contact Diagnoses Right knee pain, unspecified chronicity Left knee pain, unspecified chronicity Procedures XR Knee Right 3 Views Palmira Butler PA [address] [place] [address] Phone: tel: fax: [address] [address] Referral ID Status Reason Start Date Expiration Date Visits Re quested Visits Authorized [id number] Closed 08/15/2023 09/13/2024 1 1 M BEATER Reason for Visit * Diagnostic Imaging (Routine) - Closed Specialty Diagnoses / Procedures Referred By Contac t Referred To Contact Diagnoses Right knee pain, unspecified chronicity Left knee pain, unspecified chronicity Procedures XR Knee Right 3 Views Palmira Butler PA [address] [facility] [address] [place] [address] Phone: tel: fax: [address] [place] [address] Referral ID Status Reason Start Date Expiration Date Visits Re quested Visits Authorized [id number] Closed 08/15/2023 09/13/2024 1 1 Encounter Details Date Type Department Care Team (Latest Contact Info) Description 08/15/2023 2:24 PM CREAM BEATER - 08/15/2023 11:59 PM CREAM BEATER Hospital Encounter [facility] Diagnostic Imaging [address] [place] [id number] Right knee pain, unspecified chronicity; Left knee pain, unspecified chronicity Discharge Disposition: Discharge to home or self [...] on file Legal Sex Female 6:43 AM CREAM BEATER Gender Identity . 01/07/2021 9:24 AM CDT Sexual Orientation Not on file documented as of this encounter Medications at Time of Discharge Advair Diskus 500-50 mcg/dose diskus inhaler Inhale 1 puff 2 (two) times a day 1 albuterol (PROVENTIL,VENTOLIN ) 2.5 mg /3 mL (0.083 %) nebulizer [...] total) by mouth daily 30 tablet 8 3 cannabidiol, CBD, (CANNABIDIOL ORAL) Take 5 mg/kg by mouth 2 (two) times a day 60mg cannabidiol, CBD, (medical cannabis) each 1 Dose as needed With THC cyclobenzaprine (FLEXERIL) 10 mg tablet TAKE 1/2 TO 1 TABLET BY MOUTH EVERY NIGHT 3 divalproex ER (DEPAKOTE ER) 500 mg 24 hr tablet Take 1 tablet (500 mg total) by mouth daily ergocalciferol (Vitamin D2) 50,000 unit capsule Take 1 capsule (50,000 Units total) by mouth once a week 4 capsule 8 3 FLUoxetine (PROzac) 20 mg capsule Take 1 capsule (20 mg total) by mouth daily gabapentin (NEURONTIN) 300 mg capsule Take 2 capsules (600 mg total) by mouth 3 (three) times a day 3 ibuprofen (ADVIL,MOTRIN) suspension 100 mg/5 mLIndications:last dose 1300 Take by mouth every 4 (four) hours as needed for pain medroxyPROGESTERone (Depo-Provera) 150 mg/mL injection as directed mometasone-formoter ol (Dulera) 200-5 mcg/actuation inhaler every 12 hours 2 ondansetron ODT (ZOFRAN-ODT) 8 mg disintegrating tablet DISSOLVE 1 TABLET ON THE TONGUE EVERY 8 HOURS FOR 3 DAYS 3 predniSONE (DELTASONE) 20 mg tablet daily 3 venlafaxine XR (EFFEXOR-XR) 37.5 mg 24 hr capsule 3 clonazePAM (KlonoPIN) 1 mg tablet Take 1 tablet (1 mg total) by mouth 3 (three) times a day Ct stated only taking 1x day and plans to go back to 3x day as ct id it helps with her anxiety. 08/27/20 23 cloNIDine ER (KAPVAY) 0.1 mg tablet extended release 12 hr Take 2 tablets (0.2 mg total) by mouth 2 (two) times a day 120 tablet 8 3 08/27/20 23 meloxicam (MOBIC) 7.5 mg tabletIndications:a cute pain Take 1 tablet (7.5 mg total) by mouth every 12 (twelve) hours as needed for pain 15 tablet 3 08/27/20 23 orphenadrine ER (NORFLEX) 100 mg 12 hr tabletIndications:M uscle Spasm Take 1 tablet (100 mg total) by mouth 2 (two) times a day 15 tablet 3 08/27/20 rizatriptan (MAXALT) 10 mg tabletIndications:Kimmy igraine Take 1 tablet (10 mg total) by mouth once as needed for migraine May repeat in 2 hours if unresolved. Do not exceed 30 mg in 24 hours. 9 tablet 8 3 08/27/20 venlafaxine XR (EFFEXOR-XR) 150 mg 24 hr capsule Take 1 capsule (150 mg total) by mouth daily 08/27/20 documented as of this encounter Discharge Disposition Disposition Code Departure Means Destination Discharge to home or self care documented in this encounter Plan of Treatment Not on file documented as of this encounter Procedures Procedure Name Priority Date/Time Associated Diagnosis Comments XR KNEE RIGHT 3 VIEWS Schedule Routine, Read Routine (OP Routine) 08/15/2023 2:50 PM CREAM BEATER Right knee pain, unspecified chronicity Left knee pain, unspecified chronicity documented in this encounter Results * XR Knee Right 3 Views (08/15/2023 2:50 PM CREAM BEATER) Anatomical Region Laterality Modality Lower Extremities, Knee Right Computed Radiography 08/16/2023 10:3 5 AM CREAM BEATER Narrative 08/16/2023 10:39 AM CREAM BEATER EXAM DESCRIPTION: XR KNEE LEFT 3 VIEWS; XR KNEE RIGHT 3 VIEWS REASON FOR STUDY: Bilateral knee pain. Bilateral knee pain, tingling and numbness. Hx arthritis. TECHNIQUE: There are 3 ??radiographic view(s) of the ??left knee and three views of the right knee . COMPARISON: No prior. FINDINGS: Right knee: There are serpiginous foci of increased sclerosis of the distal diaphysis of the femur and the proximal diaphysis of the tibia indicative of avascular necrosis. ??There is no fracture. ??Joint spaces are intact. ??No effusion. ??No fracture. Left knee: Serpiginous foci of increased sclerosis are seen of the diaphysis of the left femur and proximal tibia indicative of etiology such as avascular necrosis. ?? No fracture. ?? Joint spaces are intact with no evidence of significant arthropathy. ??No effusion. IMPRESSION: No fracture or significant arthropathy. There are serpiginous foci of increased sclerosis of the diaphysis of the bilateral femurs and proximal tibia indicative of avascular necrosis. THIS IS AN ELECTRONICALLY VERIFIED FINAL REPORT 08/16/2023 10:39 AM - Electronically signed by ??Denny SANCHEZ D: ??08/16/2023 10:39 AM T: Report ID: [id number] Reading Location: ??[id number] Procedure Note Denny Kennedy MD - 08/16/2023 EXAM DESCRIPTION: XR KNEE LEFT 3 VIEWS; XR KNEE RIGHT 3 VIEWS REASON FOR STUDY: Bilateral knee pain. Bilateral knee pain, tingling and numbness. Hx arthritis. TECHNIQUE: There are 3 radiographic view(s) of the left knee and threeviews of the right knee . COMPARISON: No prior. FINDINGS: Right knee: There are serpiginous foci of increased sclerosis of the distal diaphysisof the femur and the proximal diaphysis of the tibia indicative of avascular necrosis. There is no fracture. Joint spaces are intact. No effusion.No fracture. Left knee: Serpiginous foci of increased sclerosis are seen of the diaphysis of theleft femur and proximal tibia indicative of etiology such as avascularnecrosis. No fracture. Joint spaces are intact with no evidence of significant arthropathy. No effusion. IMPRESSION: No fracture or significant arthropathy. There are serpiginous foci of increased sclerosis of the diaphysis of the bilateral femurs and proximal tibia indicative of avascular necrosis. THIS IS AN ELECTRONICALLY VERIFIED FINAL REPORT 08/16/2023 10:39 AM - Electronically signed by Denny SANCHEZ T: Report ID: [id number] Reading Location: [id number] Palmira SAWANT IMG XR PROCEDURES Final Re sult documented in this encounter Visit Diagnoses Diagnosis Right knee pain, unspecified chronicity Left knee pain, unspecified chronicity documented in this encounter Care Teams Voip Network Engineer Relationship Specialty Start Date End Date Cortney Pineda NP [address] [place] [address] PCP - General 06/09/19 Bassem Cho MD [address] [facility] [address] [place] [address] 12/20/18 documented as of this encounter
--- OUTSIDE RECORDS SUMMARY | 2024-10-16 03:35 | XMS_ITS | Encounter Summary ---
Author Organization [facility] Address [address] [place] [address] Phone Care Team Providers Care Appliance Line Assembler Name Role Phone Bassem Cho MD Unavailable [phone] Cortney Pineda NP Primary Care Provider Encounter Details Date Type Department Care Team (Late st Contact Info) Description 09/12/2023 Telephone [facility] Pediatric Neurology [address] [place] [address] Negrita Pride MD PhD [id number] [place] [address] Social History Tobacco Use Types Packs/Day Years [...] on file Legal Sex Female 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 01/07/2021 9:24 AM CDT Sexual Orientation Not on file documented as of this encounter Miscellaneous Notes * Telephone Encounter - Crisostomo, Selina, NAIL CUTTER - 09/12/2023 1:02 PM CST Fax received from: [facility] Requesting: Chart notes Completed and faxed, scanned into chart HOUSE OPERATOR documented in this encounter Plan of Treatment Not on file documented as of this encounter Visit Diagnoses Not on filedocumented in this encounter Care Teams Appliance Line Assembler Relationship Specialty Start Date End Date Cortney Pineda, DONOR SERVICES MANAGER [address] [facility] [place] [address] PCP - General 06/09/19 Bassem Cho MD [address] [place] [address] 12/20/18 documented as of this encounter
--- OUTSIDE RECORDS SUMMARY | 2024-10-16 03:35 | XMS_ITS | Referral Summary ---
Author Organization [facility] Address [address] [place] [address] Care Team Providers Care Medical Art Therapist Name Role Phone Bassem Cho MD Unavailable [phone] Cortney Pineda NP Primary Care Provider [phone] Allergies Active Allergy Reactions Criticality Noted Date Comments Fluticasone Furoate-Vilanterol Rash Medium 11/15 Fluticasone Hives Medium 03/26/2019 Hives Vilanterol Hives Medium 03/26/2019 Hives Medications albuterol (PROVENTIL,VENTOLI N) 2.5 mg /3 mL (0.083 %) nebulizer solution Take 3 mL (2.5 mg total) by nebulization every 4 (four) hours as needed for wheezing or shortness of breath Active albuterol HFA (PROVENTIL HFA,VENTOLIN HFA,PROAIR HFA) 90 mcg/actuation inhaler Inhale 2 puffs every 6 (six) hours as needed for wheezing or shortness of breath Active ibuprofen (ADVIL,MOTRIN) suspension 100 mg/5 mLIndications:last dose 1300 Take by mouth every 4 (four) hours as needed for pain Active Advair Diskus 500-50 mcg/dose diskus inhaler Inhale 1 puff 2 (two) times a day 05/24/20 21 Active divalproex ER (DEPAKOTE ER) 500 mg 24 hr tablet Take 1 tablet (500 mg total) by mouth daily Active medroxyPROGESTERon e (Depo-Provera) 150 mg/mL injection as directed Active predniSONE (DELTASONE) 20 mg tablet daily 12/12/19 Active ARIPiprazole (ABILIFY) 2 mg tablet Take 1 tablet (2 mg total) by mouth daily 30 tablet 12/15/19 Active ergocalciferol (Vitamin D2) 50,000 unit capsule Take 1 capsule (50,000 Units total) by mouth once a week 4 capsule 12/15/19 Active cannabidiol, CBD, (CANNABIDIOL ORAL) Take 5 mg/kg by mouth 2 (two) times a day 60mg Active cannabidiol, CBD, (medical cannabis) each 1 Dose as needed With THC Active FLUoxetine (PROzac) 20 mg capsule Take 1 capsule (20 mg total) by mouth daily Active propranoloL (INDERAL) 20 mg tablet Take 1 tablet (20 mg total) by mouth 2 (two) times a day 60 tablet 08/27/20 Active cloNIDine ER (KAPVAY) 0.1 mg tablet extended release 12 hr Take 2 tablets (0.2 mg total) by mouth 2 (two) times a day 120 tablet 08/27/20 Active rizatriptan (MAXALT) 10 mg tabletIndications: Migraine Take 1 tablet (10 mg total) by mouth once as needed for migraine May repeat in 2 hours if unresolved. Do not exceed 30 mg in 24 hours. 9 tablet 08/27/20 Active cholecalciferol 25 mcg (1,000 unit) tablet daily Active cyclobenzaprine (FLEXERIL) 10 mg tablet TAKE 1/2 TO 1 TABLET BY MOUTH EVERY NIGHT 08/15/20 Active gabapentin (NEURONTIN) 300 mg capsule Take 2 capsules (600 mg total) by mouth 3 (three) times a day 08/15/20 Active ondansetron ODT (ZOFRAN-ODT) 8 mg disintegrating tablet DISSOLVE 1 TABLET ON THE TONGUE EVERY 8 HOURS FOR 3 DAYS 07/19/20 Active venlafaxine XR (EFFEXOR-XR) 37.5 mg 24 hr capsule 06/11/20 Active mometasone-formote rol (Dulera) 200-5 mcg/actuation inhaler every 12 hours 07/24/20 Active Active Problems Problem Noted Date Diagnosed Date Subclinical hypothyroidism 06/27/2023 Assessment & Plan (06/27/2023 5:05 PM CDT): Reviewed patient's labs from March 2023 TSH slightly limited with normal free T4 and T3 levels Suspect subclinical hypothyroidism Patient to have multiple ROS ++ Repeat thyroid function test include thyroid antibodies And further plans based on it Sensory processing difficulty 10/19/2021 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 Over the past 2 years her symptoms have worsened, particularly with seasonal changes and in the fall/winter. Given her course of symptoms over the past 3 weeks, she could now classify as mild or even moderate persistent asthma and warrants more aggressive controller ICS treatment. She was started on Qvar recently, but she will likely require a medium dose ICS and potentially a LABA for control of her symptoms, at least during the fall and winter months when her symptoms have been worse. For her current symptoms we will treat her q2h with 2.5mg albuterol nebs and ipratropium, as well as continuing the 60mg prednisone course that she started on 07/16. We will space her albuterol treatment as tolerated. - Alb 2.5 mg q4h - ipratropium Q6H x 4 doses - Prednisone 60 mg x 7 days (07/16-07/23) - Follow AIMS recs Assessment & Plan (07/19/2018 3:16 AM CDT): Lexie has a history of symptoms prior to 2 months ago consistent with mild intermittent asthma, requiring her rescue inhaler only a couple times a month, has had minimal night time cough and no night time waking, except for exacerbations with URI symptoms. Over the past 2 years her symptoms have worsened, particularly with seasonal changes and in the fall/winter. Given her course of symptoms over the past 3 weeks, she could now classify as mild or even moderate persistent asthma and warrants more aggressive controller ICS treatment. She was started on Qvar recently, but she will likely require a medium dose ICS and potentially a LABA for control of her symptoms, at least during the fall and winter months when her symptoms have been worse. For her current symptoms we will treat her q2h with 2.5mg albuterol nebs and ipratropium, as well as continuing the 60mg prednisone course that she started on 07/16. We will space her albuterol treatment as tolerated. If she requires a prolonged course of steroids, she would benefit from a taper, but will have to wait and see how long she will need them for. - Alb 2.5 mg Q2H - ipratropium Q6H x 4 doses - Prednisone 60 mg x 5 days (07/16- - Hold home QVAR - PO AL - AIMS c/s - Consider steroid taper Anxiety 07/19/2018 Depression 07/19/2018 Bipolar 1 disorder, Anxiety 07/19/2018 Assessment & Plan (07/20/2018 3:41 PM CDT): Lexie is on a number of medications for her psychiatric illnesses and managed by a psychiatrist that she should continue during hospitalization. - Continue home Depakote, Klonopin, bupropion, Quetiapine Assessment & Plan (07/19/2018 3:12 AM CDT): Lexie is on a number of medications for her psychiatric illnesses and managed by a psychiatrist that she should continue during hospitalization. - Continue home Depakote, Klonopin, bupropion, Quetiapine Immunizations Name Administration Dates Next Due DTaP 11/13/2005 DTaP / Hep B / IPV 02/28/2005,2004, 005 DTaP / IPV 06/17/2010 HPV9 07/30/2017 Hib (PRP-T) 02/16/2006, 5,2004,10/05 Influenza, Quadrivalent, Spl it, Preservative Free, Intramuscular 09/07/2022,07/19/2018 MMR 06/17/2010,08/10/2005 Meningococcal A,C,W,Y-TT (Ak a Menquadfi) 05/31/2021 Meningococcal MCV4, Unspecified 06/29/2016 Meningococcal MCV4P (Menactra) 06/29/2016 Tdap 06/29/2016 Varicella 06/29/2016,11/13/2005 Social History Tobacco Use Types Packs/Day Years Used Date Smoking Tobacco: Never Smokeless Tobacco: Never Tobacco Cessation:Counseling Given: Not Answered Alcohol Use Standard Drinks/Week Comments No 0 [...] on file Legal Sex Female 6:43 AM 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 01/07/2021 9:24 AM CDT Sexual Orientation Not on file Last Filed Vital Signs Vital Sign Reading Time Taken Comments Blood Pressure 145/83 08/27/2023 4:37 PM SUPERVISOR ELECTRONICS TESTING Pulse 113 08/27/2023 4:37 PM SUPERVISOR ELECTRONICS TESTING Temperature 36.8 ??C (98.2 ??F) 08/27/2023 4:37 PM CS T Respiratory Rate 20 08/27/2023 4:37 PM SUPERVISOR ELECTRONICS TESTING Oxygen Saturation 100% 07/05/2023 3:41 PM CDT Inhaled Oxygen Concentration - - Weight 92.9 kg (204 lb 12.8 oz) 08/27/2023 4:37 PM SUPERVISOR ELECTRONICS TESTING Height 163.3 cm (5' 4.29 ) 08/27/2023 4:37 PM CS T Body Mass Index 34.84 08/27/2023 4:37 PM SUPERVISOR ELECTRONICS TESTING Plan of Treatment Not on file Insurance [facility] [employer] [facility] [facility] H[employer]/PPO Address: [place] [address] [facility]O [place]: [place] [address] [facility]O Address: [address] [address] [place] [address] [facility]O [place]: [place] [address] [facility]/PPO Address: [place] [address] [facility] [employer] [facility]/PPO Address: [place] [address] Advance Directives For more information, please contact: [phone] * Full Code (Latest Code Status on File) Date Activated Date Inactivated Comments 07/18/2018 11:11 PM 07/20/2018 6:22 PM Care Teams Medical Art Therapist Relationship Specialty Start Date End Date Cortney Pineda, HYDRAULIC TECHNICIAN [address] [place] [address] PCP - General 06/09/19 Bassem Cho MD [address] [facility] [address] [place] [address] 12/20/18
--- OUTSIDE RECORDS SUMMARY | 2024-10-16 03:35 | XMS_ITS | Encounter Summary ---
Author Organization [facility] Healthcare Address [address] [place] [address] Care Team Providers Care Land Department Head Name Role Phone Bassem Cho MD Unavailable [phone] Cortney Pineda NP Primary Care Provider [phone] Reason for Referral * Diagnostic Imaging (Routine) - Closed Specialty Diagnoses / Procedures Referred By Contac t Referred To Contact Diagnoses Lower back pain Procedures XR Spine Lumbar 2 or 3 Views Cortney Pineda NP [address] [place] [address] Phone: tel: fax: [address] [address] Referral ID Status Reason Start Date Expiration Date Visits Re quested Visits Authorized [id number] Closed 02/16/2023 03/17/2024 1 1 Reason for Visit * Diagnostic Imaging (Routine) - Closed Specialty Diagnoses / Procedures Referred By Contac t Referred To Contact Diagnoses Lower back pain Procedures XR Spine Lumbar 2 or 3 Views Cortney Pineda NP [address] [place] [address] Phone: tel: fax: [address] [address] Referral ID Status Reason Start Date Expiration Date Visits Re quested Visits Authorized [id number] Closed 02/16/2023 03/17/2024 1 1 Encounter Details Date Type Department Care Team (Latest Contact Info) Description 02/16/2023 4:35 PM CDT - 02/16/2023 11:59 PM CDT Hospital Encounter [facility] Diagnostic Imaging [address] [place] [id number] Lower back pain Discharge Disposition: Discharge to home or self [...] on file Legal Sex Female 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 01/07/2021 9:24 AM CDT [...] once a week 4 capsule 8 12/14/2022 ibuprofen (ADVIL,MOTRIN) suspension 100 mg/5 mLIndications:la st dose 1300 Take by mouth every 4 (four) hours as needed for pain medroxyPROGESTER one (Depo-Provera) 150 mg/mL injection as directed mometasone-formo terol (Dulera) 200-5 mcg/actuation inhaler every 12 hours 07/24/2022 predniSONE (DELTASONE) 20 mg tablet daily 12/11/2022 clonazePAM (KlonoPIN) 1 mg tablet Take 1 [...] daily 3 documented as of this encounter Discharge Disposition Disposition Code Departure Means Destination Discharge to home or self care documented in this encounter Plan of Treatment Not on file documented as of this encounter Procedures Procedure Name Priority Date/Time Associated Diagnosis Comments XR SPINE LUMBAR 2 OR 3 VIEWS Schedule Routine, Read Routine (OP Routine) 02/16/2023 5:11 PM CDT Lower back pain documented in this encounter Results * XR Spine Lumbar 2 or 3 Views (02/16/2023 5:11 PM CDT) Anatomical Region Laterality Modality Spine N/A Computed Radiogr aphy 02/18/2023 12:4 2 PM CDT Narrative 02/18/2023 12:43 PM CDT EXAM DESCRIPTION: XR SPINE LUMBAR 2 OR 3 VIEWS REASON FOR STUDY: Lower back pain ?? Pt sts: lower back pain that radiates to ribs and down to knees X couple months, started physical therapy today, no injury ?? TECHNIQUE: 3 ??radiographic view(s) of the ??lumbar ??spine. COMPARISON: 01/09/2023. FINDINGS: There are 5 [id number]-[id number]-aejnetg lumbar vertebral bodies. ??There is preservation of vertebral body height with no acute fracture. ??Trivial facet arthropathy L5-S1. ??Minimal multilevel disc space narrowing. ??Soft tissues are unremarkable. IMPRESSION: No acute fracture. Minimal spondylosis as above. THIS IS AN ELECTRONICALLY VERIFIED FINAL REPORT 02/18/2023 12:43 PM - Electronically signed by ??Denny Kennedy M.D. MJ D: ??02/18/2023 12:43 PM T: Report ID: [id number] Reading Location: ??[id number] Procedure Note Denny Kennedy MD - 02/18/2023 EXAM DESCRIPTION: XR SPINE LUMBAR 2 OR 3 VIEWS REASON FOR STUDY: Lower back pain Pt sts: lower back pain that radiates to ribs and down to knees X couple months, started physical therapy today, no injury TECHNIQUE: 3 radiographic view(s) of the lumbar spine. COMPARISON: 01/09/2023. FINDINGS: There are 5 [id number]-[id number] lumbar vertebral bodies. There is preservation of vertebral body height with no acute fracture. Trivialfacet arthropathy L5-S1. Minimal multilevel disc space narrowing. Soft tissuesare unremarkable. IMPRESSION: No acute fracture. Minimal spondylosis as above. THIS IS AN ELECTRONICALLY VERIFIED FINAL REPORT 02/18/2023 12:43 PM - Electronically signed by Denny RehmanD. MJ T: Report ID: [id number] Reading Location: [id number] Cortney Pineda MATRIX WORKER IMG XR PROCEDURES Final Result documented in this encounter Visit Diagnoses Diagnosis Lower back pain Lumbago documented in this encounter Care Teams Land Department Head Relationship Specialty Start Date End Date Cortney Pineda, MATRIX WORKER [address] [facility] [address] PCP - General 06/09/19 Bassem Cho MD [address] [facility] [address] [place] [address] 12/20/18 documented as of this encounter
--- OUTSIDE RECORDS SUMMARY | 2024-10-16 03:35 | XMS_ITS | Encounter Summary ---
Author Organization [facility] Address [address] [place] [address] Phone Care Team Providers Care Burring Wheel Operator Name Role Phone Bassem Cho MD Unavailable Cortney Pineda NP Primary Care Provider [phone] Reason for Referral * Medication Authorization (Routine) - Closed Specialty Diagnoses / Procedures Referred By Contac t Referred To Contact Adolescent Medicine Diagnoses Encounter for management and injection of depo-Provera Jimena Lim MD [address] [place] [address] Phone: tel: fax: Referral ID Status Reason Start Date Expiration Date Visits Re quested Visits Authorized [id number] Closed 06/20/2023 09/30/2024 6 6 Reason for Visit * Medication Authorization (Routine) - Closed Specialty Diagnoses / Procedures Referred By Contdorian t Referred To Contact Diagnoses Encounter for management and injection of depo-Provera Jimena Lim MD [address] [place] [address] Phone: tel: fax: Referral ID Status Reason Start Date Expiration Date Visits Re quested Visits Authorized [id number] Closed 12/28/2022 01/27/2024 6 6 Encounter Details Date Type Department Care Team (Late st Contact Info) Description 06/20/2023 11:30 AM CDT Office Visit [facility] Adolescent Medicine [address] [facility] 2nd [place] [address] [place] [address] Jimena Lim MD [address] [facility] [address] [place] [address] Encounter for management and injection of depo-Provera [...] on file Legal Sex Female 6:43 AM MARINE REPORTER Gender Identity . 01/07/2021 9:24 AM CDT Sexual Orientation Not on file documented as of this encounter Last Filed Vital Signs Vital Sign Reading Time Taken Comments Blood Pressure 120/80 06/20/2023 11:40 AM CDT Pulse 110 06/20/2023 11:40 AM CDT Temperature 36.4 ??C (97.5 ??F) 06/20/2023 1 1:40 AM CDT Respiratory Rate - - Oxygen Saturation 100% 06/20/2023 11: 40 AM CDT Inhaled Oxygen Concentration - - Weight 88.7 kg (195 lb 8.8 oz) 06/20/20 23 11:40 AM CDT Height 164.4 cm (5' 4.72 ) 06/20/2023 1 1:40 AM CDT Body Mass Index 32.82 06/20/2023 11:40 AM CDT Body Mass Index Percentile 96.02% 06/20 11:40 AM CDT Growth Chart: CDC (Girls, 2- 20 Years) documented in this encounter Progress Notes * Jimena Lim MD - 06/20/2023 11:30 AM CDT Images from the original [...] Date of first depo: 07/05/21 Last injection: 03/22/23 Weeks since last injection: 12 Weight change since last appointment: n/a Reason for Depo Provera use: menstrual suppression Side effects: none Medication interactions: No Interested in continuing? Yes Other medical concern: Abnormal TSH noted with PCP, reviewed last TSH from July 2022 was normal PAST MEDICAL, SURGICAL, FAMILY, AND SOCIAL HISTORY Patient's past medical, surgical, family, and social histories were reviewed during this encounter and updated as appropriate. MEDICATIONS Patient's medications have been reviewed during this encounter and updated as appropriate. ALLERGIES Allergies Allergen Reactions Breo Ellipta [Fluticasone Furoate-Vilanterol] Rash Fluticasone Hives Hives Vilanterol Hives Hives EXAM BP 120/80 (BP Location: Left arm, Patient Position: Sitting) Pulse 110 Temp 36.4 ??C (97.5 ??F)(Temporal) Ht 164.4 cm (5' 4.72 ) Wt 88.7 kg (195 lb 8.8 oz) SpO2 100% BMI 32.82 kg/m?? Constitutional: Patient is oriented to person, place, [...] 150 mg/mL injection 150 mg Admin Date 06/20/2023 Action Given Dose 150 mg Route intramuscular Administered By Mera Joy RMA Mary E. Fournier, MD, MPH documented in this encounter Plan [...] 150 mg 150 mg, intramuscular, Once, On Sun06/20/23 at 1245, For 1 dose, Javon wellIndications:Encounter for management and injection of depo-Provera Given 06/20/2023 12:11 PM CDT 150 mg Left Deltoid documented in this encounter Care Teams Burring Wheel Operator Relationship Specialty Start Date End Date Cortney Pineda NP [address] [facility] [place] [address] PCP - General 06/09/19 Bassem Cho MD [address] [place] [address] 12/20/18 documented as of this encounter
--- OUTSIDE RECORDS SUMMARY | 2024-10-16 03:35 | XMS_ITS | Encounter Summary ---
Author Organization [facility] Address [address] [place] [address] Care Team Providers Care Senior Sql Server Database Developer Name Role Phone Bassem Cho MD Unavailable [phone] Cortney Pineda NP Primary Care Provider [phone] Reason for Visit * Reason Comments Thyroid Problem Encounter Details Date Type Department Care Team (Latest Contact Info) Description 06/27/2023 10:30 AM CDT Office Visit [facility] [address] [facility] [address], [place] [address] [place] [address] [facility] [address], [place] [address] Subclinical hypothyroidism (Primary Dx) Social History Tobacco Use Types Packs/Day Years Used Date Smoking Tobacco: Never Smokeless Tobacco: Never Alcohol Use Standard Drinks/Week Comments No 0 (1 standard drink = 0.6 oz pur e alcohol) PHQ-2 Answer Date Recorded PHQ-2 TOTAL SCORE 3 09/07/2022 Comments No Sex and Gender Information Value Date Recorded Sex Assigned at Not on file Legal Sex Female 6:43 AM PROBATION AND PATROL AGENT Gender Identity . 01/07/2021 9:24 AM CDT Sexual Orientation Not on file documented as of this encounter Last Filed Vital Signs Vital Sign Reading Time Taken Comments Blood Pressure 118/80 06/27/2023 10:55 AM CDT Pulse 100 06/27/2023 10:55 AM CDT Temperature - - Respiratory Rate 18 06/27/2023 10:55 AM CDT Oxygen Saturation - - Inhaled Oxygen Concentration - - Weight 87.5 kg (193 lb) 06/27/2023 10:55 AM CDT Height 164.4 cm (5' 4.72 ) 06/27/2023 10:55 AM C DT Body Mass Index 32.39 06/27/2023 10:55 AM CDT Body Mass Index Percentile 95.78% 06/27/2023 10: 55 AM CDT Growth Chart: [facility] (Girls, 2- 20 Years) documented in this encounter Progress Notes * Dmitry Andres, Lauro Andres MD - 06/27/2023 10:30 AM CDT Images from the original note were not included. [facility] Consult Note Subjective/Objective Patient ID: Lexie Oconnell is a 17 y.o. adult Chief Complaint Thyroid Problem HPI Pt. Seen today in consultation for Abnormal thyroid function test , requested by PCP Cortney Pineda NP( Peds FOOD SERVICE WORKER) Recently patient had some labs checked by her PCP and noted to have TSH ( 03/2023 )elevated at 5.5.normal free T4 level In July of 2023 patient thyroid function test was normal Patient complains of progressive worsening fatigue. Over the last year patient significantly gained weight. She was 140 lb last year around this time and now she is 193 lb. According to patient and her mother there were no significant lifestyle changes. Patient is currently doing college, studying Ceramics and photography She complains of cold intolerance. Memory problems Past Medical History: Diagnosis Date Bipolar 1 disorder (HCC) Dorsalgia Mid back pain - (Added by Conv) Metatarsal fracture Migraines Prematurity 29 weeks Past Surgical History: Procedure Laterality Date NO PAST SURGERIES Family History Problem Relation Age of Onset [...] menstrual, difficult - Relation: Aunt (Added by Conv) Uterine cancer Other Family history of uterine leiomyoma - Relation: Grandmother (Added by Conv) Hypertension Other Family history of hypertension - Relation: Grandparent (Added by TW Conv) Factor V Leiden Maternal Grandmother Social History Tobacco Use Smoking status: Never Smokeless tobacco: Never Substance and Sexual Activity Drug use: No Sexual activity: None Alcohol Use: Not on file HOME MEDICATIONS : Advair Diskus 500-50 mcg/dose diskus inhaler albuterol (PROVENTIL,VENTOLIN) 2.5 mg /3 mL (0.083 %) nebulizer solution albuterol HFA (PROVENTIL HFA,VENTOLIN HFA,PROAIR HFA) 90 mcg/actuation inhaler ARIPiprazole (ABILIFY) 2 mg tablet cannabidiol, CBD, (CANNABIDIOL ORAL) cannabidiol, CBD, (medical cannabis) each cloNIDine ER (KAPVAY) 0.1 mg tablet extended release 12 hr divalproex ER (DEPAKOTE ER) 500 mg 24 hr tablet ergocalciferol (Vitamin D2) 50,000 unit capsule ibuprofen (ADVIL,MOTRIN) suspension 100 mg/5 mL medroxyPROGESTERone (Depo-Provera) 150 mg/mL injection predniSONE (DELTASONE) 20 mg tablet rizatriptan (MAXALT) 10 mg tablet clonazePAM (KlonoPIN) 1 mg tablet FLUoxetine (PROzac) 20 mg capsule meloxicam (MOBIC) 7.5 mg tablet orphenadrine ER (NORFLEX) 100 mg 12 hr tablet venlafaxine XR (EFFEXOR-XR) 150 mg 24 hr capsule Allergies Allergen Reactions Breo Ellipta [Fluticasone Furoate-Vilanterol] Rash Fluticasone Hives Hives Vilanterol Hives Hives Review of Systems Constitutional: Positive for fatigue. Negative for appetite change, chills, fever and unexpected weight change. HENT: Negative for dental problem, ear pain, hearing loss, sore throat, trouble swallowing and voice change. Eyes: Negative for pain and visual disturbance. Respiratory: Negative for cough, shortness of breath and wheezing. Cardiovascular: Negative for chest pain, palpitations and leg swelling. Gastrointestinal: Negative for abdominal pain, constipation, diarrhea, nausea and vomiting. Endocrine: Positive for cold intolerance. Negative for heat intolerance, polydipsia and polyuria. Always feels cold + Genitourinary: Negative for difficulty urinating, dysuria and urgency. Musculoskeletal: Positive for arthralgias. Negative for back pain, gait problem, joint swelling, myalgias, neck pain and neck stiffness. Skin: Negative for rash and wound. Hair loss + Allergic/Immunologic: Negative for environmental allergies and food allergies. Neurological: Negative for dizziness, tremors, seizures, speech difficulty, weakness, light-headedness, numbness and headaches. Hematological: Negative for adenopathy. Does not bruise/bleed easily. Psychiatric/Behavioral: Negative for behavioral problems, confusion, dysphoric mood, hallucinationsand sleep disturbance. The patient is not nervous/anxious. Memory issues + Vitals: 06/27/23 1055 BP: 118/80 BP Location: Right arm Patient Position: Sitting Pulse: 100 Resp: 18 Weight: 87.5 kg (193 lb) Height: 164.4 cm (5' 4.72 ) Physical Exam Constitutional: Appearance: She is obese. HENT: Head: Normocephalic and atraumatic. Eyes: Conjunctiva/sclera: Conjunctivae normal. Neck: Thyroid: No thyromegaly. Cardiovascular: Rate and Rhythm: Normal rate and regular rhythm. Heart sounds: Normal heart sounds. Pulmonary: Effort: Pulmonary effort is normal. Breath sounds: Normal breath sounds. Abdominal: General: Bowel sounds are normal. Palpations: Abdomen is soft. There is no mass. Tenderness: There is no abdominal tenderness. Musculoskeletal: General: No tenderness. Cervical back: Neck supple. Right lower leg: No edema. Left lower leg: No edema. Skin: General: Skin is warm and dry. Neurological: Mental Status: She is alert and oriented to person, place, and time. Deep Tendon Reflexes: Reflexes are normal and symmetric. Psychiatric: Thought Content: Thought content normal. Judgment: Judgment normal. Labs: Chemistry Component Value Date/Time SODIUM 146 (H) 05/26/2022 1344 POTASSIUM 4.4 05/26/2022 1344 CHLORIDE 113 05/26/2022 1344 CO2 22 05/26/2022 1344 BUNSER 12 05/26/2022 1344 CREATININE 0.49 05/26/2022 1344 GLUCOSE 88 05/26/2022 1344 Component Value Date/Time CALCIUM 9.5 05/26/2022 1344 ALKPHOS 48 (L) 05/26/2022 1344 AST 13 05/26/2022 1344 ALT 8 05/26/2022 1344 BILITOT 0.2 05/26/2022 1344 Lab Results Component Value Date HGBA1C 4.9 05/26/2022 Lab Results Component Value Date TSH 0.64 05/26/2022 No results found for: NOLAN CHRISTIANSEN4HUR Lab Results Component Value Date CHOL 170 05/26/2022 Lab Results Component Value Date HDL 40 (L) 05/26/2022 Lab Results Component Value Date LDLCALC 116 05/26/2022 Lab Results Component Value Date TRIG 70 05/26/2022 Lab Results Component Value Date CHOLHDL 4 05/26/2022 Assessment/Plan Diagnoses and all orders for this visit: Subclinical hypothyroidism (Primary) Assessment & Plan: Reviewed patient's labs from March 2023 TSH slightly limited with normal free T4 and T3 levels Suspect subclinical hypothyroidism Patient to have multiple ROS ++ Repeat thyroid function test include thyroid antibodies And further plans based on it Orders: - Thyroid peroxidase antibody (TPO); Future - TSH reflex to free T4; Future Lauro Andres MD documented in this encounter Miscellaneous Notes * Assessment & Plan Note - Lauro Reynolds MD - 06/27/2023 5:05 PM CDTAssociated Problem(s): Subclinical hypothyroidism Reviewed patient's labs from March 2023 TSH slightly limited with normal free T4 and T3 levels Suspect subclinical hypothyroidism Patient to have multiple ROS ++ Repeat thyroid function test include thyroid antibodies And further plans based on it documented in this encounter Plan of Treatment Not on file documented as of this encounter Results * TSH reflex to free T4 (06/27/2023 12:04 PM CDT) TSH 1.22 0.30 - 4.20 mcIUnit/mL [facility] Blood 06/27/2023 12:0 4 PM CDT 06/27/2023 6:57 PM CDT us Lauro Andres MD LAB BLOOD ORDERABLE S Final Result Performing Organization Address City/[facility]/ZIP Co de Phone Number KADE VAZQUEZ [address] [place] [place] [address] * Thyroid peroxidase antibody (TPO) (06/27/2023 12:04 PM CDT) Anti Thyroid Peroxidase <30 <=34 units/mL KADE VAZQUEZ Comment: ATPO Interpretive Data Results may be up to 28% higher in patients receiving Itraconazole. Current interpretive data was last revised 2020. Testing performed by: [facility], [address] [place]., [address] Blood 06/27/2023 12:0 4 PM CDT 06/28/2023 9:44 AM CDT us Lauro Andres MD LAB BLOOD ORDERABLE S Final Result Performing Organization Address [facility] Co de Phone Number KADE VAZQUEZ [address] [place] [address] documented in this encounter Visit Diagnoses Diagnosis Subclinical hypothyroidism- Primary Other specified acquired hypothyroidism documented in this encounter Historical Medications * This list may reflect changes made after this encounter. FLUoxetine (PROzac) 20 mg capsule Take 1 capsule (20 mg total) by mouth daily added in this encounter Care Teams Senior Sql Server Database Developer Relationship Specialty Start Date End Date Cortney Pineda FOOD SERVICE WORKER [address] [place] [address] PCP - General 06/09/19 Bassem Cho MD [address] [place] [address] 12/20/18 documented as of this encounter
--- OUTSIDE RECORDS SUMMARY | 2024-10-16 03:35 | XMS_ITS | Encounter Summary ---
Author Organization [facility] Address [address] [place] [address] Care Team Providers Care Backrest Assembler Name Role Phone Bassem Cho MD Unavailable [phone] Cortney Pineda NP Primary Care Provider [phone] Reason for Referral * Diagnostic Imaging (Routine) - Closed Specialty Diagnoses / Procedures Referred By Contac t Referred To Contact Diagnoses Right knee pain, unspecified chronicity Left knee pain, unspecified chronicity Procedures XR Knee Left 3 Views Palmira Butler PA [address] [place] [address] Phone: tel: fax: [address] [address] Referral ID Status Reason Start Date Expiration Date Visits Re quested Visits Authorized [id number] Closed 08/15/2023 09/13/2024 1 1 ASSISTANT Reason for Visit * Diagnostic Imaging (Routine) - Closed Specialty Diagnoses / Procedures Referred By Contdorian t Referred To Contact Diagnoses Right knee pain, unspecified chronicity Left knee pain, unspecified chronicity Procedures XR Knee Left 3 Views Palmira Butler PA [address] [facility] [address] [place] [address] Phone: tel: fax: [address] [place] [address] Referral ID Status Reason Start Date Expiration Date Visits Re quested Visits Authorized [id number] Closed 08/15/2023 09/13/2024 1 1 Encounter Details Date Type Department Care Team (Latest Contact Info) Description 08/15/2023 2:24 PM LOAN ASSISTANT - 08/15/2023 11:59 PM LOAN ASSISTANT Hospital Encounter [facility] Diagnostic Imaging [address] [place] [id number] Right knee pain, unspecified chronicity; Left knee [...] on file Legal Sex Female 6:43 AM LOAN ASSISTANT Gender Identity . 01/07/2021 9:24 AM [...] Priority Date/Time Associated Diagnosis Comments XR KNEE LEFT 3 VIEWS Schedule Routine, Read Routine (OP Routine) 08/15/2023 2:49 PM LOAN ASSISTANT Right knee pain, unspecified chronicity Left knee pain, unspecified chronicity documented in this encounter Results * XR Knee Left 3 Views (08/15/2023 2:49 PM LOAN ASSISTANT) Anatomical Region Laterality Modality Lower Extremities, Knee Left Computed Radiography 08/16/2023 10:3 5 AM LOAN ASSISTANT Narrative 08/16/2023 10:39 AM LOAN ASSISTANT EXAM DESCRIPTION: XR KNEE LEFT 3 VIEWS; [...] D: ??08/16/2023 10:39 AM T: Report ID: [id number] Reading Location: [id number] Procedure Note Denny Kennedy MD - 08/16/2023 [...] signed by Denny SANCHEZ T: Report ID: [id number] Reading Location: [id number] Palmira SAWANT IMG XR PROCEDURES Final Re sult documented in this encounter Visit Diagnoses Diagnosis Right knee pain, unspecified chronicity Left knee pain, unspecified chronicity documented in this encounter Care Teams Backrest Assembler Relationship Specialty Start Date End Date Cortney Pineda NP [address] [place] [address] PCP - General 06/09/19 Bassem Cho MD [address] [facility] [address] [place] [address] 12/20/18 documented as of this encounter
--- OUTSIDE RECORDS SUMMARY | 2024-10-16 03:35 | XMS_ITS | Encounter Summary ---
Author Organization [facility] Address [address] [place] [address] Phone Care Team Providers Care Welder Fitter Name Role Phone Bassem Cho MD Unavailable [phone] Cortney Pineda NP Primary Care Provider Reason for Referral * Medication Authorization (Routine) - Closed Specialty Diagnoses / Procedures Referred By Contac t Referred To Contact Diagnoses Encounter for management and injection of depo-Provera Jimena Lim MD [address] [place] [address] Phone: tel: fax: Referral ID Status Reason Start Date Expiration Date Visits Re quested Visits Authorized [id number] Closed 09/06/2023 10/05/2024 1 1 ALDEHYDE CONVERTER OPERATOR Reason for Visit * Medication Authorization (Routine) - Closed Specialty Diagnoses / Procedures Referred By Contac t Referred To Contact Diagnoses Encounter for management and injection of depo-Provera Jimena Lim MD [address] [place] [address] Phone: tel: fax: Referral ID Status Reason Start Date Expiration Date Visits Re quested Visits Authorized [id number] Closed 09/06/2023 10/05/2024 1 1 Encounter Details Date Type Department Care Team (Late st Contact Info) Description 09/06/2023 4:00 PM ACETALDEHYDE CONVERTER OPERATOR Office Visit [facility] [address] [facility] [address] [place] [address] Jimena Lim MD [address] [place] [address] Encounter for management and injection of depo-Provera [...] on file Legal Sex Female 6:43 AM ACETALDEHYDE CONVERTER OPERATOR Gender Identity . 01/07/2021 9:24 AM CDT Sexual Orientation Not on file documented as of this encounter Progress Notes * Jimena Lim MD - 09/06/2023 4:00 PM CST Images from the original note were not included. Lexie Oconnell is a 18 y.o. here for repeat Depo Provera injection. Patient was not seen by provider. Date of first depo: 07/05/21 Last injection:06/20/23 Weeks since last injection: 11 Administrations This Visit medroxyPROGESTERone (DEPO-PROVERA) 150 mg/mL injection 150 mg Admin Date 09/06/2023 Action Given Dose 150 mg Route intramuscular Documented By Magali Logan CMA Mary E. Fournier, MD, MPH ALDEHYDE CONVERTER OPERATOR documented in this encounter Plan of [...] mg 150 mg, intramuscular, Once, On Mami 09/06/23 at 1045, For 1 dose, Shake wellIndications:Encounte r for management and injection of depo-Provera Given 09/06/2023 4:10 PM ACETALDEHYDE CONVERTER OPERATOR 150 mg Right Dorsogluteal/Butto ck documented in this encounter Historical Medications * This list may reflect changes made after this encounter. mometasone-formotero l (Dulera) 200-5 mcg/actuation inhaler every 12 hours 07/24/2022 venlafaxine XR (EFFEXOR-XR) 37.5 mg 24 hr capsule 06/11/2023 ondansetron ODT (ZOFRAN-ODT) 8 mg disintegrating tablet DISSOLVE 1 TABLET ON THE TONGUE EVERY 8 HOURS FOR 3 DAYS 07/19/2023 gabapentin (NEURONTIN) 300 mg capsule Take 2 capsules (600 mg total) by mouth 3 (three) times a day 08/15/2023 cyclobenzaprine (FLEXERIL) 10 mg tablet TAKE 1/2 TO 1 TABLET BY MOUTH EVERY NIGHT 08/15/2023 cholecalciferol 25 mcg (1,000 unit) tablet daily added in this encounter Orders Medications Ordered That Markel ht Not Have Been Administered Count Last Ordered Date First Ordered Date medroxyPROGESTERone (DEPO-WA OVERA) 150 mg/mL injection 150 mg 1 09/06/2023 documented in this encounter Care Teams Welder Fitter Relationship Specialty Start Date End Date Cortney Pineda NP [address] [place] [address] PCP - General 06/09/19 Bassem Cho MD [address] [place] [address] 12/20/18 documented as of this encounter
--- OUTSIDE RECORDS SUMMARY | 2024-10-16 03:35 | XMS_ITS | Encounter Summary ---
Author Organization [facility] Healthcare Address [address] [place] [address] Care Team Providers Care Commercial Review Appraiser Name Role Phone Bassem Cho MD Unavailable [phone] Cortney Pineda NP Primary Care Provider [phone] Reason for Referral * Diagnostic Imaging (Routine) - Closed Specialty Diagnoses / Procedures Referred By Contac t Referred To Contact Diagnoses Left ankle pain, unspecified chronicity Procedures XR Ankle Left 3 or More Views Palmira Butler PA [address] [facility] [address] [place] [address] Phone: tel: fax: [address] [address] Referral ID Status Reason Start Date Expiration Date Visits Re quested Visits Authorized [id number] Closed 11/20/2023 12/19/2024 1 1 CH BINDER Reason for Visit * Diagnostic Imaging (Routine) - Closed Specialty Diagnoses / Procedures Referred By Contac t Referred To Contact Diagnoses Left ankle pain, unspecified chronicity Procedures XR Ankle Left 3 or More Views Palmira Butler PA [address] [facility] [address] [place] [address] Phone: tel: fax: [address] [address] Referral ID Status Reason Start Date Expiration Date Visits Re quested Visits Authorized [id number] Closed 11/20/2023 12/19/2024 1 1 Encounter Details Date Type Department Care Team (Latest Contact Info) Description 11/20/2023 4:14 PM FRENCH BINDER - 11/20/2023 11:59 PM FRENCH BINDER Hospital Encounter [facility] Diagnostic Imaging [address] [place] [address] Left ankle pain, unspecified chronicity; Right ankle pain, unspecified chronicity Discharge Disposition: Discharge to [...] on file Legal Sex Female 6:43 AM FRENCH BINDER Gender Identity . 01/07/2021 9:24 AM CDT Sexual Orientation Not on file documented as of this encounter Medications at Time of Discharge Advair Diskus 500-50 mcg/dose diskus inhaler Inhale 1 puff 2 (two) times a day albuterol (PROVENTIL,VENTOLIN ) 2.5 mg /3 mL [...] each 1 Dose as needed With THC cholecalciferol 25 mcg (1,000 unit) tablet daily cloNIDine ER (KAPVAY) 0.1 mg tablet extended release 12 hr Take 2 tablets (0.2 mg total) by mouth 2 (two) times a day 120 tablet 11 3 cyclobenzaprine (FLEXERIL) 10 mg tablet TAKE 1/2 [...] predniSONE (DELTASONE) 20 mg tablet daily 3 propranoloL (INDERAL) 20 mg tablet Take 1 tablet (20 mg total) by mouth 2 (two) times a day 60 tablet 11 3 rizatriptan (MAXALT) 10 mg tabletIndications:M igraine Take 1 tablet (10 mg total) by mouth once as needed for migraine May repeat in 2 hours if unresolved. Do not exceed 30 mg in 24 hours. 9 tablet 11 3 venlafaxine XR (EFFEXOR-XR) 37.5 mg 24 hr capsule 3 documented as of this encounter Discharge Disposition Disposition Code Departure Means Destination Discharge to home or self care documented in this encounter Plan of Treatment Not on file documented as of this encounter Procedures Procedure Name Priority Date/Time Associated Diagnosis Comments XR ANKLE RIGHT 3 OR MORE VIEWS Schedule Routine, Read Routine (OP Routine) 11/20/2023 4:31 PM FRENCH BINDER Right ankle pain, unspecified chronicity XR ANKLE LEFT 3 OR MORE VIEWS Schedule Routine, Read Routine (OP Routine) 11/20/2023 4:31 PM FRENCH BINDER Left ankle pain, unspecified chronicity documented in this encounter Results * XR Ankle Right 3 or More Views (11/20/2023 4:31 PM FRENCH BINDER) Anatomical Region Laterality Modality Lower Extremities, Ankle Right Compute d Radiography 11/21/2023 10:5 3 AM FRENCH BINDER Narrative 11/21/2023 10:55 AM FRENCH BINDER EXAM DESCRIPTION: XR ANKLE LEFT 3 OR MORE VIEWS; XR ANKLE RIGHT 3 OR MORE VIEWS REASON FOR STUDY: LEFT ANKLE PAIN, UNSPECIFIED CHRONICITY ?? RIGHT ANKLE PAIN, UNSPECIFIED CHRONICITY ?? Pain in both ankles for 2 months, no injury. Pt states hx of pain in knees due to osteoporosis related to heavy oral steroid use per primary care physician. ? FINDINGS: Three views each ankle weightbearing submitted with comparison 10/08/2018. Left ankle: There are no erosions. ??There are no fractures. ??The joint space and mortise appear normal. ??There is no evidence of an ankle effusion. ??There is mild pes planus. Right ankle: There are no erosions. ??There are no fractures. ??The joint space and mortise are normal. ??There is no evidence of an ankle effusion. ??There is mild pes planus. IMPRESSION: No radiographic evidence of inflammatory arthritis. Mild bilateral pes planus. THIS IS AN ELECTRONICALLY VERIFIED FINAL REPORT 11/21/2023 10:55 AM - Electronically signed by ??Denny Daniel M.D. D: ??11/21/2023 10:55 AM T: Report ID: [id number] Reading Location: ??[id number] Procedure Note Denny Daniel MD - 11/21/2023 EXAM DESCRIPTION: XR ANKLE LEFT 3 OR MORE VIEWS; XR ANKLE RIGHT 3 OR MORE VIEWS REASON FOR STUDY: LEFT ANKLE PAIN, UNSPECIFIED CHRONICITY RIGHT ANKLE PAIN, UNSPECIFIED CHRONICITY Pain in both ankles for 2 months, no injury. Pt states hx of pain in kneesdue to osteoporosis related to heavy oral steroid use per primary carephysician. FINDINGS: Three views each ankle weightbearing submitted with comparison 10/08/2018. Left ankle: There are no erosions. There are no fractures. The joint space andmortise appear normal. There is no evidence of an ankle effusion. There is mildpes planus. Right ankle: There are no erosions. There are no fractures. The joint space andmortise are normal. There is no evidence of an ankle effusion. There is mild pes planus. IMPRESSION: No radiographic evidence of inflammatory arthritis. Mild bilateral pes planus. THIS IS AN ELECTRONICALLY VERIFIED FINAL REPORT 11/21/2023 10:55 AM - Electronically signed by Denny Daniel M.D. T: Report ID: [id number] Reading Location: [id number] Palmira SAWANT IMG XR PROCEDURES Final Re sult * XR Ankle Left 3 or More Views (11/20/2023 4:31 PM FRENCH BINDER) Anatomical Region Laterality Modality Lower Extremities, Ankle Left Compute d Radiography 11/21/2023 10:5 3 AM FRENCH BINDER Narrative 11/21/2023 10:55 AM FRENCH BINDER EXAM DESCRIPTION: XR ANKLE LEFT 3 OR MORE VIEWS; XR ANKLE RIGHT 3 OR MORE VIEWS REASON FOR STUDY: LEFT ANKLE PAIN, UNSPECIFIED CHRONICITY ?? RIGHT ANKLE PAIN, UNSPECIFIED CHRONICITY ?? Pain in both ankles for 2 months, no injury. Pt states hx of pain in knees due to osteoporosis related to heavy oral steroid use per primary care physician. ? FINDINGS: Three views each ankle weightbearing submitted with comparison 10/08/2018. Left ankle: There are no erosions. ??There are no fractures. ??The joint space and mortise appear normal. ??There is no evidence of an ankle effusion. ??There is mild pes planus. Right ankle: There are no erosions. ??There are no fractures. ??The joint space and mortise are normal. ??There is no evidence of an ankle effusion. ??There is mild pes planus. IMPRESSION: No radiographic evidence of inflammatory arthritis. Mild bilateral pes planus. THIS IS AN ELECTRONICALLY VERIFIED FINAL REPORT 11/21/2023 10:55 AM - Electronically signed by ??Denny Daniel M.D. D: ??11/21/2023 10:55 AM T: Report ID: [id number] Reading Location: ??[id number] Procedure Note Denny Daniel MD - 11/21/2023 EXAM DESCRIPTION: XR ANKLE LEFT 3 OR MORE VIEWS; XR ANKLE RIGHT 3 OR MORE VIEWS REASON FOR STUDY: LEFT ANKLE PAIN, UNSPECIFIED CHRONICITY RIGHT ANKLE PAIN, UNSPECIFIED CHRONICITY Pain in both ankles for 2 months, no injury. Pt states hx of pain in kneesdue to osteoporosis related to heavy oral steroid use per primary carephysician. FINDINGS: Three views each ankle weightbearing submitted with comparison 10/08/2018. Left ankle: There are no erosions. There are no fractures. The joint space andmortise appear normal. There is no evidence of an ankle effusion. There is mildpes planus. Right ankle: There are no erosions. There are no fractures. The joint space andmortise are normal. There is no evidence of an ankle effusion. There is mild pes planus. IMPRESSION: No radiographic evidence of inflammatory arthritis. Mild bilateral pes planus. THIS IS AN ELECTRONICALLY VERIFIED FINAL REPORT 11/21/2023 10:55 AM - Electronically signed by Denny Daniel M.D. T: Report ID: [id number] Reading Location: [id number] Palmira SAWANT IMG XR PROCEDURES Final Re sult documented in this encounter Visit Diagnoses Diagnosis Left ankle pain, unspecified chronicity Right ankle pain, unspecified chronicity documented in this encounter Care Teams Commercial Review Appraiser Relationship Specialty Start Date End Date Cortney Pineda NP [address] [place] [address] PCP - General 06/09/19 Bassem Cho MD [address] [facility] [address] [place] [id number] 12/20/18 documented as of this encounter
--- OUTSIDE RECORDS SUMMARY | 2024-10-16 03:35 | XMS_ITS | Clinical Summary ---
Author Organization [facility] ospital Address [address] [place] [address] Care Team Providers Care Occ Therapist Name Role Phone Bassem Cho MD Unavailable [phone] Cortney Pineda NP Primary Care Provider [phone] Allergies Active Allergy Reactions Criticality Noted Date [...] MCV4P (Menactra) 06/29/2016 Tdap 06/29/2016 Varicella 06/29/2016,11/13/2005 Surgical History Surgery Date Site/Laterality Comments NO PAST SURGERIES Medical History Medical History Date Comments Dorsalgia Mid back pain - (Added by TW Conv) Prematurity 29 weeks Metatarsal fracture Migraines Bipolar 1 disorder (HCC) Family History Medical History Relation Name Comments Arthritis Father Hypertension Father Low Back Pain Father Migraines Father Thyroid disease Father Factor V Leiden Maternal Grandmother Arthritis Mother Bleeding Disorder Mother Factor V Leiden Mother Hypertension Mother Low Back Pain Mother Menstrual problems Mother Migraines Mother Spondylolisthesis Mother Menstrual problems Other 1 Periods, menstrual, difficult - Relation: Grandmother (Added by TW Conv) Menstrual problems Other 2 Periods, menstrual, difficult - Relation: Aunt (Added by TW Conv) Uterine cancer Other 3 Family histor y of uterine leiomyoma - Relation: Grandmother (Added by TW Conv) Hypertension Other 4 Family history of hypertension - Relation: Grandparent (Added by TW Conv) Relation Name Status Comments Father Maternal Grandmother Mother Other 1 Other 2 Other 3 Other 4 Social History Tobacco Use Types Packs/Day Years [...] on file Legal Sex Female 6:43 AM CONVEYOR LINE BAKERY WORKER Gender Identity . 01/07/2021 9:24 AM CDT Sexual Orientation Not on file History Length Weight Head Circum Date/Time Gestation Age D/C Weight APGARs Delivery Method Feeding 2005 29 2/7 wks 1min: 7 5m i n: 9 Born via emergency C/S for w orsening preeclampsia and concern for HELLP syndrome. Obstetrics History Last Filed Vital Signs Vital Sign Reading Time Taken Comments Blood Pressure 145/83 08/27/2023 4:37 PM CONVEYOR LINE BAKERY WORKER Pulse 113 08/27/2023 4:37 PM CONVEYOR LINE BAKERY WORKER Temperature 36.8 ??C (98.2 ??F) 08/27/2023 4:37 PM CS T Respiratory Rate 20 08/27/2023 4:37 PM CONVEYOR LINE BAKERY WORKER Oxygen Saturation 100% 07/05/2023 3:41 PM CDT Inhaled Oxygen Concentration - - Weight 92.9 kg (204 lb 12.8 oz) 08/27/2023 4:37 PM CONVEYOR LINE BAKERY WORKER Height 163.3 cm (5' 4.29 ) 08/27/2023 4:37 PM CS T Body Mass Index 34.84 08/27/2023 4:37 PM CONVEYOR LINE BAKERY WORKER Plan of Treatment Health Maintenance Due Date Last Done Comments Hepatitis C Screening 2004 Pneumococcal vaccine <65 (1 of 2 - PCV) 2010 HPV Vaccines (2 - 2-dose series) 01/28/2018 07/30/20 17 Meningococcal B Vaccine (1 o f 2 - Patient Seeks Protection) 2020 Regular Well Visit/Exam 18-64 2022 Depression Screening 09/07/2023 09/07/2022, 09/07/20 22 Covid-19 Vaccine (4 - 2023-2 5 season) 2024 10/13/2021, 01/14/2021, 12/23/2020 Influenza Vaccine (#1) 2024 09/07/2022, 2017 DTaP/Tdap/Td Vaccine (7 - Td or Tdap) 06/29/2026 06/29/2016, 06/17/2010, 11/13/2005, Additional history exists Varicella Vaccines Completed 06/29/2016, 11/13/2005 Meningococcal Vaccine Completed 05/31/2021 , 06/29/2016, 06/29/2016 Insurance [facility]PPO Address: [place] [id number] [facility] [employer] [facility] Address: [address] [place] [address] [facility] [employer]US [facility] HMO/PPO Address: [address] [address] [place] [address] CHOICE PLUS [facility] HMO/PPO Address: [address] [address] [place] [address] [facility]O Address: [address] [address] [place] [address] [facility] H[facility]/PPO Address: [address] [address] [place] [phone] Advance Directives For more information, please contact: [phone] * Full Code (Latest Code Status on File) Date Activated Date Inactivated Comments 07/18/2018 11:11 PM 07/20/2018 6:22 PM Care Teams Occ Therapist Relationship Specialty Start Date End Date Cortney Pineda, COMPUTER SCIENCE TEACHER [address] [place] [address] PCP - General 06/09/19 Bassem Cho MD [address] [facility] [address] [place] [address] 12/20/18
--- OUTSIDE RECORDS SUMMARY | 2024-10-16 03:36 | XMS_ITS | Encounter Summary ---
Author Organization [facility] Address [address] [place] [address] Phone Care Team Providers Care Security Incident Response Engineer Name Role Phone Bassem Cho MD Unavailable [phone] Cortney Pineda NP Primary Care Provider [phone] Vicky Ramachandran OT Unavailable [phone] Reason for Referral * Medication Authorization (Routine) - Closed Specialty Diagnoses / Procedures Referred By Contac t Referred To Contact Diagnoses Encounter for management and injection of depo-Provera Menorrhagia with irregular cycle Procedures Jimena Wilburn MD 1 [facility] [address] [place] [address] Phone: tel: fax: Jimena Lim MD Phone: tel: fax: Referral ID Status Reason Start Date Expiration Date Visits Re quested Visits Authorized [id number] Closed 09/22/2021 10/22/2022 1 1 DDED SOFTWARE MANAGER Reason for Visit * Medication Authorization (Routine) - Closed Specialty Diagnoses / Procedures Referred By Contac t Referred To Contact Diagnoses Encounter for management and injection of depo-Provera Menorrhagia with irregular cycle Procedures Jimena Wilburn MD 1 [facility] [address] [place] [address] Phone: tel: fax: Jimena Lim MD Phone: tel: fax: Referral ID Status Reason Start Date Expiration Date Visits Re quested Visits Authorized [id number] Closed 09/22/2021 10/22/2022 1 1 Encounter Details Date Type Department Care Team (Late st Contact Info) Description 09/22/2021 1:00 PM EMBEDDED SOFTWARE MANAGER Office Visit [facility] [address] [place] [address] [address] [place] [address] Jimena Lim MD 1 [facility] [address] [place] [address] Encounter for management and injection of depo-Provera (Primary Dx); Menorrhagia with irregular cycle Social History Tobacco Use Types Packs/Day Years Used Date Smoking Tobacco: Never Smokeless Tobacco: Never Alcohol Use Standard Drinks/Week Comments No 0 (1 standard drink = 0.6 oz pur e alcohol) Comments No Sex and Gender Information Value Date Recorded Sex Assigned at Not on file Legal Sex Female 6:43 AM EMBEDDED SOFTWARE MANAGER Gender Identity . 01/07/2021 9:24 AM CDT Sexual Orientation Not on file documented as of this encounter Last Filed Vital Signs Vital Sign Reading Time Taken Comments Blood Pressure 116/74 09/22/2021 1:21 PM EMBEDDED SOFTWARE MANAGER Pulse 86 09/22/2021 1:21 PM EMBEDDED SOFTWARE MANAGER Temperature 36.7 ??C (98.1 ??F) 09/22/2021 1:21 PM CS T Respiratory Rate 20 09/22/2021 1:21 PM EMBEDDED SOFTWARE MANAGER Oxygen Saturation 97% 09/22/2021 1:21 PM EMBEDDED SOFTWARE MANAGER Inhaled Oxygen Concentration - - Weight 61.5 kg (135 lb 9.3 oz) 09/22/2021 1:21 P M EMBEDDED SOFTWARE MANAGER Height 163 cm (5' 4.17 ) 09/22/2021 1:21 PM EMBEDDED SOFTWARE MANAGER Body Mass Index 23.15 09/22/2021 1:21 PM EMBEDDED SOFTWARE MANAGER Body Mass Index Percentile 72.89% 09/22/2021 1:2 1 PM EMBEDDED SOFTWARE MANAGER Growth Chart: CDC (Girls, 2- 20 Years) documented in this encounter Progress Notes * Jimena Lim MD - 09/22/2021 1:00 PM CST Lexie Oconnell is a 16 y.o. adult here for repeat Depo Provera injection. HPI Date of first depo: 07/05/21 Last injection: 07/05/21 Weeks since last injection: 11 Weight change since last appointment: +5 lb Reason for Depo Provera use: Heavy menstrual bleeding. Side effects: some breakthrough bleeding, but much less than baseline Medication interactions: No Interested in continuing? Yes PAST MEDICAL, SURGICAL, FAMILY, AND SOCIAL HISTORY Patient's past medical, surgical, family, and social histories were reviewed during this encounter and updated as appropriate. MEDICATIONS Patient's medications have been reviewed during this encounter and updated as appropriate. ALLERGIES Allergies Allergen Reactions ??? Breo Ellipta [Fluticasone Furoate-Vilanterol] Rash ??? Fluticasone Hives Hives ??? Vilanterol Hives Hives REVIEW OF SYSTEMS Review of Systems Constitutional: Positive for malaise/fatigue. Negative for fever. HENT: Negative for congestion and sore throat. Eyes: Negative for blurred vision. Respiratory: Negative for cough. Cardiovascular: Negative for chest pain. Gastrointestinal: Negative for diarrhea and vomiting. Genitourinary: Negative for dysuria. Musculoskeletal: Negative for myalgias. Skin: Negative for rash. Neurological: Negative for dizziness. Endo/Heme/Allergies: Does not bruise/bleed easily. Psychiatric/Behavioral: Negative for depression. EXAM BP 116/74 Pulse 86 Temp 36.7 ??C (98.1 ??F) (Temporal) Resp 20 Ht 163 cm (5' 4.17 ) Wt 61.5 kg (135 lb 9.3 oz) SpO2 97% BMI 23.15 kg/m?? Physical Exam Vitals reviewed. Constitutional: Appearance: Normal appearance. Lexie Oconnell is normal weight. Pulmonary: Effort: Pulmonary effort is normal. Neurological: General: No focal deficit present. Mental Status: Lexie Oconnell is alert and oriented to person, place, and time. Psychiatric: Mood and Affect: Affect normal. Reviewed labs from last visit - normal results, see EMR for further information. ASSESSMENT AND PLAN Menorrhagia Doing well on Depo Provera, still with some breakthrough bleeding which is an expected side effect Continue Depo Provera - 150 mg IM today. Reviewed risks, benefits, normal side effects of irregularbleeding or amenorrhea, possible weight gain, and the concern over decreased bone density with prolonged use. Encouraged follow up in 11-13 weeks. Administrations This Visit medroxyPROGESTERone (DEPO-PROVERA) 150 mg/mL injection 150 mg Admin Date 09/22/2021 Action Given Dose 150 mg Route intramuscular Administered By Deb Heaton CMA FOLLOW UP Follow up in 11-13 weeks or sooner with problems. Jimena Lim MD DDED SOFTWARE MANAGER documented in this encounter Plan of Treatment Not on file documented as of this encounter Visit Diagnoses Diagnosis Encounter for management and injection of depo-Provera- Primary Menorrhagia with irregular cycle documented in this encounter Administered Medications Inactive Administered Medications - up to 3 most recent administrations Medication Order MAR Action Action Date Dose Rate Site medroxyPROGESTERone (DEPO-PROVERA) 150 mg/mL injection 150 mg 150 mg, intramuscular, Once, On Mami 09/22/21 at 1345, For 1 dose, Shake wellIndications:Encounte r for management and injection of depo-Provera,Menorrhagia with irregular cycle Given 09/22/2021 1:23 PM EMBEDDED SOFTWARE MANAGER 150 mg Left Dorsogluteal/Butto ck documented in this encounter Care Teams Security Incident Response Engineer Relationship Specialty Start Date End Date Cortney Pineda NP [address] [place] [address] PCP - General 06/09/19 Bassem Cho MD [address] [facility] [address] [place] [address] 12/20/18 Vicky Ramachandran OT [address] [place] [address] Occupational Therapist Occupational Therapy 04/19/21 documented as of this encounter
--- OUTSIDE RECORDS SUMMARY | 2024-10-16 03:36 | XMS_ITS | Encounter Summary ---
Author Organization [facility] Address [address] [place] [address] Phone Care Team Providers Care Masonry Instructor Name Role Phone Bassem Cho MD Unavailable [phone] Cortney Pineda NP Primary Care Provider [phone] Vicky Ramachandran OT Unavailable [phone] Reason for Visit * Reason Comments OT Treatment * Consultation (Routine) - Closed Specialty Diagnoses / Procedures Referred By Contact Referred To Contact Pediatric Occupational Therapy Diagnoses Tic disorder Negrita Pride MD PhD [id number] [place] [address] Phone: tel: fax: [facility] (All Locations) Referral ID Status Reason Start Date Expiration Date V isits Requested Visits Authorized [id number] Closed Specialty Services Required 11/29/2020 12/29/2021 24 24 Encounter Details Date Type Department Care Team (Late st Contact Info) Description 10/20/2021 1:30 PM DORR OPERATOR Therapy [facility] Occupational Therapy [address] [place] [address] Vicky Ramachandran, OT [address] [place] [address] 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 01/07/2021 9:24 AM CDT Sexual Orientation Not on file documented as of this encounter Progress Notes * Vicky Ramachandran, OT - 10/20/2021 1:30 PM CST OT Daily Treatment Note Lexie Oconnell 2005 Subjective: Ct and mother sated they wanted to discuss ways to help ct with school issues. Pain: 12/08 back and sh and neck Objective: Client was seen in clinic setting with ze mother. No change in medical status stated. Client's preferred pronouns: Ct prefers they/them, ze/zem, and it/its pronouns, when parents are not around. Client's preferred name: Gina when parents are not around. Functional Neurological Symptoms ??? LE weakness ??? R UE locking elb, wrist,and finger flex; occasionally BUE ??? Jaw locking ? ? R LE > LLE locking hip, knee, and ankle ext Functional Neurological Trigger id by ct ??? Auditory stim (too many people talking) ??? Tactile stim ??? Visual stim ??? Eating habits low Functional Neurological Strategies that help manage symptoms id by ct ??? Leaving the task or environment ??? Quieting environment ??? Service dog ??? Noise resistant headphone ??? Music Functional Neurological Disorder Awareness Problem: IE indicated that ze has sensory triggers of low tolerance to mod to high stim environments, unexpected tactile, auditory, or visual stim, and low intake of food. Current status: ?? Eating: Not addressed this session ?? Suggestibility: Not addressed this session HEP: ?? Talk to psychology about anxiety about working on eating. Functional Neurological Disorder Management Problem: IE indicated some awareness of strategies to use to manage zer FND symptoms. Current status: ?? Ct id the following strategies help manage er FND symptoms with min verbal prompts ?? Leaving the task or environment ?? Quieting environment ?? Service dog ?? Noise resistant headphone ?? Music ?? School Accommodations: ?? Reviewed current accommodations ct has. Id ct is not fully using accommodations as she stated teacher has not offered them or she is fearful to ask for accomodation. ?? Mod verbal ed how accommodations are a lawful contract and how school stating that ct can not access accommodations, previously agreed on, can make them being breaching contract. ?? Mod verbal ed on how to ask teachers in person and via e-mail. ?? Mod verbal ed on who to talk to in school, if teacher refuses accommodations ?? Min to mod verbal ed on how college and accommodations differ in respect that ct has to inform teachers of accommodations and how important it is in HS to gain ability to self advocate. ?? Ct id she is using headphones in school but it is not helping. Ct and mother id they are noise resistant. ?? Mod verbal ed on noise cancellation vs noise resistant headphones. ?? Mother id cost is a factor. Ed on types of noise cancellation headphones and ear buds. ?? Mod to max verbal prompts to id new accommodations. Accommodations id are: ?? Allow use of sunglasses to manage sensitivity to overhead lighting to maintain engagement in school ?? Allow use of fidgets to manage FND and anxiety symptoms to maintain engagement in school ?? Ct and mother stated fair verbal understanding of ed. HEP: ?? Id accommodations that may still be needed ?? Advocate to teacher to ask for teacher notes ?? Trial sunglasses in school to id help with visual sensitivity ?? Explore online noise cancellation headphones to id if family can but one within their budget Medication Management Problem: IE indicated that ct needs mod vc, multiple times to take one dose. Medication is being kept on microwave near door that ct goes by to leave home. Ct does not recall always correct dose to take of medication. Current status: ?? Ct's mother stated she has ordered a pil box. HEP: ?? Purchase pill box ?? Id location to place pill box [place] Occupational Performance Measure (COPM): This is a semi-structured interview that exploresdifficulty with functional tasks in a variety of performance areas. Clients identify areas with which they currently struggle and in which they would like to improve. They then rate the importance ofeach activity from 1-10 (1-low importance, 10-high importance). From importance ratings, a list of 3-5 priority areas are identified. Clients then rate priority areas on (1) their current performancelevel and (2) satisfaction with their current performance level (1-10; 1-low performance, low satisfaction, 10-high performance, high satisfaction). Priority Areas Importance Performance Satisfaction 1 Walk in community (Store and School): Manage FND LE symptoms 7 3 2 2 Walk stairs in community: (Store and School): Manage FND LE symptoms 5 2 1 3 Chores: Manage FND LE weakness symptoms 6 2 1 4 Recall CBIT steps to setup CR's: manage vocal and motor tics 8 1 1 5 Eat 2-3 meals and snacks if missed a meal 9 1 1 6 Take medications 10 3 2 7 8 9 10 Initial Evaluation Performance Score: 2.0 Initial Evaluation Satisfaction Score: 1.3 Education provided this session: Client was educated on: - OT POC for today and next session. Client/family verbalized Fair understanding and shows need for further education/reinforcement. Assessment: Today's session focused on completing COPM and ed on school accommodations and self advocacy. COPM scoring assisted in assessing ct awareness of their current performance level and satisfaction with current performance. Ct scores indicates good awareness of current performance level. COPM scores will be used to help show progress with OT intervention. Session focused on id what schoolsupports ct had to help support ct's medical condition and what is needed to better support ct. Discussion id ct is not fully using accommodations that were previously set up and ed on self advocacy to help attain accommodations that she needs to ask for, as teacher often will not offer without ct requesting Further 2 new accommodations were id. Ct will benefit from continued OT services at 1x/wkto improve tic management to facilitate improved success within home and community activities. Goals for Occupational Therapy Intervention (new POC as of 10/10/2020) Short Term Goals: Goals Status 1. Ct will maintain a daily log of activities and its effect on ze medical condition, 5/7 days a week for 4 wk's to id triggers of Functional Neurological Disorder within 2 mths. New (10/10/2020) 2. Ct will state awareness of 3-4 triggers of ze's FND symptoms, 80% of the time, on 2/3 wk's in 3 mths. New (10/10/2020) 3. Ct will maintain a daily log of eating and drinking and its effect on ze medical condition, 5/7 days a week for 4 wk's to id triggers of Functional Neurological Disorder (FND) within 2 mths. New (10/10/2020) 4. Ct will id 1-3 triggers for Functional Neurological Disorder (FND) within 2 mths. New (10/10/2020) 5. Ct will id trigger and implement adaptive strategy for Functional Neurological Disorder (FND) with min vc on 3/4 sessions within 3 mths. New (10/10/2020) 6. Client will state good verbal awareness of 5 steps of CBIT program to address tics within 3 mths. New (10/10/2020) 7. Client will state good verbal awareness of 3 steps of creating a competing responses within 3 mths. New (10/10/2020) Care Home Goals: Goals Status 1. Ct will walk up or down stairs with management of FND LE weakness symptoms, 70% of the time on 3/4 wk's within 6 mths. New (10/10/2020) 2. Ct will walk in community setting (i.e. store, christianity peer groups, school) with management of FND LE weakness symptoms, 70% of the time on 3/4 wk's within 6 mths. New (10/10/2020) 3. Ct will complete chores with management of FND LE weakness symptoms, 70% of the time on 3/4 wk'swithin 6 mths. New (10/10/2020) 4. Ct will eat 2-3 meals a day or if missed a meal will eat a snack, 70% of the time on 3/4 wk's within 6 mths. New (10/10/2020) 5. Ct will ind take medication with 1-3 adaptive strategies, 70% of the time on 3/4 wk's within 6 mths. New (10/10/2020) 6. Client and caregiver will create and implement a competing response with moderate verbal cues in6 mths. New (10/10/2020) 7. Frequency of OT visits: 1x/wk Duration in weeks: 6 months Plan discussed with: Patient and Family Start time: 1336 End time: 1430 OPERATOR documented in this encounter Plan of Treatment Not on file documented as of this encounter Visit Diagnoses Diagnosis Functional neurological symptom disorder with abnormal movement- Primary Anxiety Anxiety state, unspecified Bipolar 1 disorder, Anxiety documented in this encounter Care Teams Masonry Instructor Relationship Specialty Start Date End Date Cortney Pineda INTERACTIVE MEDIA DESIGNER [address] [place] [address] PCP - General 06/09/19 Bassem Cho MD [address] [facility] [address] [place] [id number] 12/20/18 Vicky Ramachandran OT [address] [place] [address] Occupational Therapist Occupational Therapy 04/19/21 documented as of this encounter
--- OUTSIDE RECORDS SUMMARY | 2024-10-16 03:36 | XMS_ITS | Encounter Summary ---
Author Organization [facility] Address [address] [place] [address] Phone Care Team Providers Care Motor Coach Bus Driver Name Role Phone Bassem Cho MD Unavailable [phone] Cortney Pineda NP Primary Care Provider [phone] Vicky Ramachandran OT Unavailable [phone] Reason for Visit * Reason Comments OT Treatment * Consultation (Routine) - Closed Specialty Diagnoses / Procedures Referred By Contact Referred To Contact Pediatric Occupational Therapy Diagnoses Tic disorder Negrita Pride MD PhD [id number] [place] [address] Phone: tel: fax: [facility] (All Locations) Referral ID Status Reason Start Date Expiration Date V isits Requested Visits Authorized [id number] Closed Specialty Services Required 11/29/2020 12/29/2021 24 24 Encounter Details Date Type Department Care Team (Late st Contact Info) Description 11/22/2021 1:00 PM EQUINE VET Therapy [facility] Occupational Therapy [address] [place] [address] Vicky Ramachandran, OT [address] [place] [address] 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 01/07/2021 9:24 AM CDT Sexual Orientation Not on file documented as of this encounter Progress Notes * Vicky Ramachandran, OT - 11/22/2021 1:00 PM CST OT Daily Treatment Note Lexie Oconnell 2005 Subjective: Ct stated when she arrived that she attempted to track her food and water but missed a few days. Pain: 12/08 back and sh and neck Objective: Client was seen in clinic setting. No change in medical status stated. Client's preferred pronouns: Ct prefers they/them and it/its pronouns, when parents are around she/her. Client's preferred name: Lexie Functional Neurological Symptoms ??? LE weakness ??? [...] Neurological Disorder Awareness Problem: IE indicated that ct has sensory triggers of low tolerance to mod to high stim environments, unexpected tactile, auditory, or visual stim, and low intake of food. Current status: ?? Trigger Awareness: ?? Mod verbal prompts id ct in last couple of weeks had 1 occurrence of B weakness. ?? Ct id trigger to be, too much stimulation, from too many people in same area. ?? OTR after hearing about event id triggers to be: ?? Suggestibility from sister and cousin being around. Both have tic disorders and FND disorder. ?? Lack of eating ?? Visual and auditory over stimulation ?? Mod verbal ed on OTR's analysis. Ct agreed on eating and environmental stimulation but not id suggestibility as a contributor. ?? Ct at home reflected on what could be triggers and ind on awareness page in binder id: ?? Not taking her medications ?? Not sleeping well or sleeping too much ?? Not eating well ?? Not exercising ?? Food Log: Ct stated she tracked using food log but forgot log at home Eat 5 days of 2 meals a day and 1 day of 1 meal a day. Eat small snacks in AM on 1 day and a PM snack on 1 day. Ct meals include: Protein: 0 days with 1-2 servings, 2 days with 3-4 servings, 3 days with 5-6 servings, and 0 days with no protein. Carb: 2 days with 1-2 servings, and 2 days with 3-4 servings, 0 days with 5-6 servings, and 1 days with no carb. Fruit: 2 days with 1 servings, 0 day with 2 servings, 0 days with 5-6 servings, and 3 days with no fruit. Vegetables: 1 days with 1/2 servings, 0 day with 2 servings, 0 day with 3 servings, 0 days with 5-6servings, and 0 days with no vegetables. . Desserts: 1 days with 1 serving, 2 day with 2 servings, 1 day with 3 servings, 0 days with no dessert. Liquids: Ct drank: Water (8 ounce is 1 serving): Ct only tracked 1-3 cups of water and tea a day. She id that she did track this well. Caffeinated beverages: Ct drank 1-2 teas with honey, last 3 days. ?? Ct stated fair verbal understanding of ed. HEP: ?? Track food and liquid using food tracker ?? Increase water intake to 8 cups a day ?? Increase fruit and vegetable intake to 3-4 servings a day Functional Neurological Disorder Management Problem: IE indicated some awareness of strategies to use to manage her FND symptoms. Current status: ?? Ct id the following strategies help manage er FND symptoms on 10/10/21 ?? Leaving the task or environment ?? Quieting environment ?? Service dog ?? Noise resistant headphone ?? Music ?? Eating ?? Max visual and verbal ed on how to track what nutrients she eat via tracking meals using daily plate items. Ct tracked all 5 days and id she was lacking on eating fruit and vegetable. ?? Mod verbal ed on servings amounts of carbs, protein, vegetables, fruits, and water using daily plate visual ?? Ct id with min verbal prompts to use a rodo called [employer] to set daily goals with alarms to: ?? Drink water ?? Eat fruits and vegetables ?? Track food and water. ?? School Accommodations: ?? Teacher notes: no update ?? Noise resistant headphones: no update ?? [place] of new accommodations. ?? Accommodations id are: ?? Allow use of sunglasses to manage sensitivity to overhead lighting to maintain engagement in school ?? No update ?? Allow use of fidgets to manage FND and anxiety symptoms to maintain engagement in school ?? No update or helpfulness rating ?? Ct and mother stated fair verbal understanding of ed. HEP: ?? Id accommodations that may still be needed ?? Advocate to special newspaper managing editor to ask for teacher notes ?? Trial [...] ct goes by to leave home. Ct id does not recall always correct dose to take of medication. Current status: ?? Ct, on 11/08/21, stated she has a pill box that has sections for AM, afternoon, and night med's.She ind filling pill box. Pill box is kept on microwave. ?? AM: ct always forget to take her med's ?? PM: Ct is not home when afternoon are due. Ct not sure how to manage this. ?? Evening: taking consistently. ?? Plan set on 11/08/21: ?? Plan was to move toothbrush and paste to be next to or on top of pill box to help take med's in AM. ?? Add visual to basket that holds PJ pants, as this is the 1st task after school. change into PJ's, to help recall PM med's. ?? No update HEP: Work on increasing compliance with AM and afternoon med's FND Monitoring Form Rated using scale of 1-10 (1-not able to manage symptom to 10 able to manage symptom) on how well managing symptoms during task Session # 1 2 3 4 5 6 7 8 Date 11/08/21 Manage FND LE symptoms while walking in community (Store and School): School 7 Store 2 Manage FND LE symptoms while walking up and down stairs in community: (Store and School): Avoiding the task Manage FND LE weakness symptoms during chores 5 Recall CBIT steps to setup CR's: manage vocal and motor tics 1 Eat 2-3 meals and snacks if missed a meal 7 Take medications 2 Manage FND UE symptoms during chores 1 Manage FND UE symptoms in community: (Store and School): 1 Education provided this session: Client was educated on: - OT POC for today and next session. Client/family verbalized Fair understanding and shows need for further education/reinforcement. Assessment: Today's session focused on skilled ed on FND medical condition, effect of low nutritional intake on bodies energy levels, and ways to manage water and food intake. Good follow through of HEP. Food log was assessed in session, ct was able during task to id she is eating well protein and carbs but has low intake of fruits and vegetables. Water intake was not tracked but ct id she is only drinking 1-3 cups a day. Skilled ed on amt of water for day and on reason body needs for managing FND symptoms. Plan for next session, to assess progress with establishing strategies and to continueed on FND management, Ct will benefit from continued OT services at 1x/wk to improve tic managementto facilitate improved success within home and community activities. Goals for Occupational Therapy Intervention (new POC as of 10/10/2020) Short Term Goals: Goals Status 1. Ct will maintain a daily log of activities and its effect on her medical condition, 5/7 days a week for 4 wk's to id triggers of Functional Neurological Disorder within 2 mths. New (10/10/2020) 2. Ct will state awareness of 3-4 triggers of her's FND symptoms, 80% of the time, on 2/3 wk's in 3mths. Id - auditory trigger on 2/2 sessions - food low intake on 2/2 sessions. Progressing (11/22/2020) 3. Ct will maintain a daily log of eating and drinking and its effect on her medical condition, 5/7days a week for 4 wk's to id triggers of Functional Neurological Disorder (FND) within 2 mths. Met on 2/2 wk's Progressing (11/22/2020) 4. Ct will id 1-3 triggers for Functional Neurological Disorder (FND) within 2 mths. Discontinue Goal as same as STG 2 Discontinue Goal (11/08/2020) 5. Ct will id trigger and implement adaptive strategy for Functional Neurological Disorder (FND) with min vc on 3/4 sessions within 3 mths. Id: - sunglasses for visual sensitivity - noise resistant headphones Progressing (11/08/2020) 6. Client will state good verbal awareness of 5 steps of CBIT program to address tics within 3 mths. New (10/10/2020) 7. Client will state good verbal awareness of 3 steps of creating a competing responses within 3 mths. New (10/10/2020) Intermediate Goals: Goals Status 1. Ct will walk up or down stairs with management of FND LE weakness symptoms, 70% of the time on 3/4 wk's within 6 mths. New (10/10/2020) 2. Ct will walk in community setting (i.e. store, jehovah's witness peer groups, school) with management of FND [...] discussed with: Patient and Family Start time: 1304 End time: 140[address] documented in this encounter Plan of Treatment Not on file documented as of this encounter Visit Diagnoses Diagnosis Functional neurological symptom disorder with abnormal movement- Primary Anxiety Anxiety state, unspecified Bipolar 1 disorder, Anxiety Tic disorder Tic disorder, unspecified documented in this encounter Care Teams Motor Coach Bus Driver Relationship Specialty Start Date End Date Cortney Pineda AIRPORT DUTY MANAGER [address] [place] [address] PCP - General 06/09/19 Bassem Cho MD [address] [facility] [address] [place] [address] 12/20/18 Vicky Ramachandran OT [address] [place] [address] Occupational Therapist Occupational Therapy 04/19/21 documented as of this encounter
--- OUTSIDE RECORDS SUMMARY | 2024-10-16 03:36 | XMS_ITS | Encounter Summary ---
Author Organization [facility] Address [address] [place] [address] Phone Care Team Providers Care Assistant Site Manager Name Role Phone Bassem Cho MD Unavailable [phone] Cortney Pineda NP Primary Care Provider [phone] Vicky Ramachandran OT Unavailable [phone] Encounter Details Date Type Department Care Team (Late st Contact Info) Description 01/23/2022 Telephone [facility] Pediatric Neurology [address] [place] [address] Negrita Prdie MD PhD [id number] [place] [address] Social History Tobacco Use Types Packs/Day Years Used Date Smoking Tobacco: Never Smokeless Tobacco: Never Alcohol Use Standard Drinks/Week Comments No 0 (1 standard drink = 0.6 oz pur e alcohol) Comments No Sex and Gender Information Value Date Recorded Sex Assigned at Not on file Legal Sex Female 6:43 AM DIESEL MAINTENANCE 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 01/07/2021 9:24 AM CDT Sexual Orientation Not on file documented as of this encounter Miscellaneous Notes * Telephone Encounter - Sergio Butler II - 01/23/2022 9:09 AM CDT Called mom to cancel apt and she will reschedule via MyChart documented in this encounter Plan of Treatment Not on file documented as of this encounter Visit Diagnoses Not on filedocumented in this encounter Care Teams Assistant Site Manager Relationship Specialty Start Date End Date Cortney Pineda PIECE MEAT TRIMMER [address] [place] [address] PCP - General 06/09/19 Bassem Cho MD [address] [place] [address] 12/20/18 Vicky Ramachandran, OT [address] [place] [address] Occupational Therapist Occupational Therapy 04/19/21 documented as of this encounter
--- OUTSIDE RECORDS SUMMARY | 2024-10-16 03:36 | XMS_ITS | Encounter Summary ---
Author Organization [facility] Address [address] [place] [address] Phone Care Team Providers Care Coal Unloader Name Role Phone Bassem Cho MD Unavailable [phone] Cortney Pineda NP Primary Care Provider [phone] Vicky Ramachandran OT Unavailable [phone] Reason for Visit * Reason Onset Date Comments Scheduling Appointments 09/11/2022 Encounter Details Date Type Department Care Team (Late st Contact Info) Description 09/11/2022 Telephone [facility] Occupational Therapy [address] [place] [address] Vicky Ramachandran OT [address] [place] [address] Scheduling Appointments Social History Tobacco Use Types Packs/Day Years Used Date Smoking Tobacco: Never Smokeless Tobacco: Never Alcohol Use Standard Drinks/Week Comments No 0 (1 standard drink = 0.6 oz pur e alcohol) PHQ-2 Answer Date Recorded PHQ-2 TOTAL SCORE 3 09/07/2022 Comments No Sex and Gender Information Value Date Recorded Sex Assigned at Not on file Legal Sex Female 6:43 AM 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 01/07/2021 9:24 AM CDT Sexual Orientation Not on file documented as of this encounter Miscellaneous Notes * Telephone Encounter - Vicky Ramachandran OT - 09/11/2022 1:17 PM CST Called family due to ct not being seen since December 13 . In May, OTR spoke to mother and she indicated that she wanted ct to come back to OT. OTR ed, mother on need for a new OT order and re-evaluation due to 8 mths between sessions. Mother was ed that she needs update OTR or schedule by end of month or ct will be d/c ATIONS INTERN documented in this encounter Plan of Treatment Not on file documented as of this encounter Visit Diagnoses Not on filedocumented in this encounter Care Teams Coal Unloader Relationship Specialty Start Date End Date Cortney Pineda NP [address] [facility] [place] [address] PCP - General 06/09/19 Bassem Cho MD [address] [place] [id number] 12/20/18 Vicky Ramachandran OT [address] [place] [address] Occupational Therapist Occupational Therapy 04/19/21 documented as of this encounter
--- OUTSIDE RECORDS SUMMARY | 2024-10-16 03:36 | XMS_ITS | Encounter Summary ---
Author Organization [facility] Address [address] [place] [address] Phone Care Team Providers Care Laborer Demolition Name Role Phone Bassem Cho MD Unavailable [phone] Cortney Pineda NP Primary Care Provider [phone] Reason for Referral * Medication Authorization (Routine) - Closed Specialty Diagnoses / Procedures Referred By Contac t Referred To Contact Diagnoses Encounter for management and injection of depo-Provera Jimena Lim MD [address] [place] [address] Phone: tel: fax: Referral ID Status Reason Start Date Expiration Date Visits Re quested Visits Authorized [id number] Closed 12/28/2022 01/27/2024 6 6 Reason for Visit * Medication Authorization (Routine) - Closed Specialty Diagnoses / Procedures Referred By Contac t Referred To Contact Diagnoses Encounter for management and injection of depo-Provera Jimena Lim MD [address] [place] [address] Phone: tel: fax: Referral ID Status Reason Start Date Expiration Date Visits Re quested Visits Authorized [id number] Closed 12/28/2022 01/27/2024 6 6 Encounter Details Date Type Department Care Team (Late st Contact Info) Description 12/28/2022 11:30 AM CDT Office Visit [facility] [address] [facility] [address] [place] [address] Jimena Lim MD [address] [place] [address] Encounter for management and injection of depo-Provera [...] on file Legal Sex Female 6:43 AM DIRECTOR ACCOUNT MANAGEMENT Gender Identity . 01/07/2021 9:24 AM CDT Sexual Orientation Not on file documented as of this encounter Last Filed Vital Signs Vital Sign Reading Time Taken Comments Blood Pressure 123/79 12/28/2022 12:01 PM CDT Pulse 90 12/28/2022 12:01 PM CDT Temperature 36.6 ??C (97.9 ??F) 12/28/2022 12:01 PM C DT Respiratory Rate 24 12/28/2022 12:01 PM CDT Oxygen Saturation 98% 12/28/2022 12:01 PM CDT Inhaled Oxygen Concentration - - Weight 74.4 kg (164 lb) 12/28/2022 12:01 PM CDT Height 162.6 cm (5' 4 ) 12/28/2022 12:01 PM CDT Body Mass Index 28.15 12/28/2022 12:01 PM CDT Body Mass Index Percentile 91.58% 12/28/2022 12: 01 PM CDT Growth Chart: CDC (Girls, 2- 20 Years) documented in this encounter Progress Notes * Jimena Lim MD - 12/28/2022 11:30 AM CDT Lexie Oconnell is a 17 y.o. adult here for repeat Depo Provera injection. HPI Date of first depo: 07/05/21 Last injection:09/07/22 Weeks since last injection: 16 Weight change since last appointment: +6 Reason for Depo Provera use: Heavy menstrual bleeding. Side effects: off schedule, recent URI, some breakthrough bleeding last week. Medication interactions: No Interested in continuing? Yes PAST MEDICAL, SURGICAL, FAMILY, AND SOCIAL HISTORY Patient's past medical, surgical, family, and social histories were reviewed during this encounter and updated as appropriate. MEDICATIONS Patient's medications have been reviewed during this encounter and updated as appropriate. ALLERGIES Allergies Allergen Reactions Breo Ellipta [Fluticasone Furoate-Vilanterol] Rash Fluticasone Hives Hives Vilanterol Hives Hives EXAM BP 123/79 (BP Location: Right arm, Patient Position: Sitting) Pulse 90 Temp 36.6 ??C (97.9 ??F) Resp 24 Ht 162.6 cm (5' 4 ) Wt 74.4 kg (164 lb) SpO2 98% BMI 28.15 kg/m?? Physical Exam Vitals reviewed. Constitutional: Appearance: Normal appearance. She is normal weight. Pulmonary: Effort: Pulmonary effort is normal. Neurological: General: No focal deficit present. Mental Status: She is alert and oriented to person, place, and time. Psychiatric: Attention and Perception: Attention and perception normal. Mood and Affect: Affect normal. Speech: Speech normal. Behavior: Behavior normal. Behavior is cooperative. RESULTS POCT HCG negative ASSESSMENT AND PLAN Menorrhagia Doing well on Depo Provera, Continue Depo Provera - 150 mg IM today. Reviewed risks, benefits, normal side effects of irregularbleeding or amenorrhea, possible weight gain, and the concern over decreased bone density with prolonged use. Encouraged follow up in 11-12 weeks. Administrations This Visit medroxyPROGESTERone (DEPO-PROVERA) 150 mg/mL injection 150 mg Admin Date 12/28/2022 Action Given Dose 150 mg Route intramuscular Administered By Deb Heaton CMA FOLLOW UP Follow up in 11-12 weeks or sooner with problems. Jimena Lim MD documented in this encounter Plan of Treatment Not on file documented as of this encounter Procedures Procedure Name Priority Date/Time Associated Diagnosis Comments POCT HCG, URINE Routine 12/28/2022 12:10 PM CDT Encounter for management and injection of depo-Provera documented in this encounter Results * (ABNORMAL) POCT hCG, urine (12/28/2022 12:10 PM CDT) HCG, ur, POC Negative Lot Number [id number] QC Backgroud Clear Acceptable QC Control Line Acceptable Urine 12/28/2022 12:1 0 PM CDT Jimena Lim MD POINT OF CARE TEST OR DERABLES Final Result documented in this encounter Visit Diagnoses Diagnosis Encounter for management and injection of depo-Provera- Primary documented in this encounter Administered Medications Inactive Administered Medications - up to 3 most recent administrations Medication Order MAR Action Action Date Dose Rate Site medroxyPROGESTERone (DEPO-PROVERA) 150 mg/mL injection 150 mg 150 mg, intramuscular, Once, On Mami 12/28/22 at 1015, For 1 dose, Shake wellIndications:Encounte r for management and injection of depo-Provera Given 12/28/2022 12:12 PM CDT 150 mg Right Dorsogluteal/Butto ck documented in this encounter Historical Medications * This list may reflect changes made after this encounter. cannabidiol, CBD, (medical cannabis) each 1 Dose as needed With THC cannabidiol, CBD, (CANNABIDIOL ORAL) Take 5 mg/kg by mouth 2 (two) times a day 60mg added in this encounter Care Teams Laborer Demolition Relationship Specialty Start Date End Date Cortney Pineda NP [address] [address] PCP - General 06/09/19 Bassem Cho MD [address] [place] [address] 12/20/18 documented as of this encounter
--- OUTSIDE RECORDS SUMMARY | 2024-10-16 03:36 | XMS_ITS | Encounter Summary ---
Author Organization [facility] Address [address] [place] [address] Phone Care Team Providers Care Retail Wireless Associate Name Role Phone Bassem Cho MD Unavailable [phone] Cortney Pineda NP Primary Care Provider [phone] Encounter Details Date Type Department Care Team (Late st Contact Info) Description 12/14/2022 11:30 AM CDT Office Visit [facility] Pediatric Neurology [address] [place] [address] Negrita Pride MD PhD [id number] [place] [address] Functional neurological symptom disorder with abnormal movement (Primary Dx); Chronic migraine without aura without status migrainosus, not intractable; Tourettes syndrome Social History Tobacco Use Types Packs/Day Years Used Date Smoking Tobacco: Never Smokeless Tobacco: Never Alcohol Use Standard Drinks/Week Comments No 0 (1 standard drink = 0.6 oz pur e alcohol) PHQ-2 Answer Date Recorded PHQ-2 TOTAL SCORE 3 09/07/2022 Comments No Sex and Gender Information Value Date Recorded Sex Assigned at Not on file Legal Sex Female 6:43 AM PACKAGE CHECKER Gender Identity . 01/07/2021 9:24 AM CDT Sexual Orientation Not on file documented as of this encounter Last Filed Vital Signs Vital Sign Reading Time Taken Comments Blood Pressure 123/83 12/14/2022 12:13 PM CDT Pulse 91 12/14/2022 12:13 PM CDT Temperature 37.4 ??C (99.3 ??F) 12/14/2022 12:13 PM C DT Respiratory Rate 22 12/14/2022 12:13 PM CDT Oxygen Saturation 100% 12/14/2022 12:13 PM CDT Inhaled Oxygen Concentration - - Weight 75.8 kg (167 lb 2 oz) 12/14/2022 12:13 PM CDT Height 165 cm (5' 4.96 ) 12/14/2022 12:13 PM CDT Body Mass Index 27.84 12/14/2022 12:13 PM CDT Body Mass Index Percentile 90.98% 12/14/2022 12: 13 PM CDT Growth Chart: [facility] (Girls, 2- 20 Years) documented in this encounter Ordered Prescriptions Prescription Sig Dispense Quantity Refills Last Filled Start Date End Date ergocalciferol (Vitamin D2) 50,000 unit capsule Take 1 capsule (50,000 Units total) by mouth once a week 4 capsule 8 12/14/2022 ARIPiprazole (ABILIFY) 2 mg tablet Take 1 tablet (2 mg total) by mouth daily 30 tablet 8 12/14/2022 cloNIDine ER (KAPVAY) 0.1 mg tablet extended release 12 hr Take 2 tablets (0.2 mg total) by mouth 2 (two) times a day 120 tablet 8 12/14/2022 3 rizatriptan (MAXALT) 10 mg tabletIndications: Migraine Take 1 tablet (10 mg total) by mouth once as needed for migraine May repeat in 2 hours if unresolved. Do not exceed 30 mg in 24 hours. 9 tablet 8 12/14/2022 3 documented in this encounter Progress Notes * Negrita Pride MD PhD - 12/14/2022 11:30 AM CDT Images from the original note were not included. [facility]bral Palsy [facility] Patient Name: LEXIE NUR Medical Record Number (MRN): [id number] Date of (): 2005 Encounter Date: 12/14/2022 The patient was last seen in my clinic on Jun 15 and portions of today's note were copied [...] wheelchair at school anymore. Current FND : hands andlegs lock up (stretching helps). Random episodes of weak arms and legs. [...] the 2 has reduce tics by 80% Depression/Anxiety: started 2017 following a very traumatic year with many deaths in the family. She had 4 hospitalizations over [id number]. Mood has been worse with mood swings and difficult to control emotions, previously relatively controlled on Depakote, Clonazepam, Effexor. She was previously followed by a counselor and psychiatrist. Now diagnosed with bipolar II. Needs new psychiatrist Migraines: previously improved only having occasional but having more headaches with COVID, at the worst part, she was having 3-4 per week. Now getting 1-2 headaches per week. Ibuprofen (3-4) works 50% of time. Other times she has to sleep them off. Bigger headache 1-2 per month. Sensory Issues: Social: She feels that she struggles to make friends and picker packer on social cues. She feels that there is high need for routine, and taking things literally. Sleep: Long standing insomnia, sleep issues. Worse recently. Sleeps all day and still tired. Feels like her sleep is poor quality. School and Therapy Attends public school 12th grade, typically has done well with school, although she struggled with remote learning. IEP with good support structure. 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 [...] /3 mL (0.083 %) nebulizer solution, Take 2.5 mg by nebulization every 4 (four) hours as needed for wheezing or shortness of breath., Disp: , Rfl: albuterol HFA (PROVENTIL HFA,VENTOLIN HFA,PROAIR HFA) 90 mcg/actuation inhaler, Inhale 2 puffs every 6 (six) hours as needed for wheezing or shortness of breath., Disp: , Rfl: ARIPiprazole (ABILIFY) 2 mg tablet, Take 1 tablet (2 mg total) by mouth daily, Disp: 30 tablet, Rfl: 5 clonazePAM (KlonoPIN) 1 mg tablet, Take 1 mg by mouth 3 (three) times a day Ct stated only taking 1x day and plans to go back to 3x day as ct id it helps with her anxiety., Disp: , Rfl: cloNIDine ER (KAPVAY) 0.1 mg tablet extended release 12 hr, Take 2 tablets (0.2 mg total) by mouth 2 (two) times a day, Disp: 120 tablet, Rfl: 5 divalproex ER (DEPAKOTE ER) 500 mg 24 hr tablet, Take 500 mg by mouth daily, Disp: , Rfl: ergocalciferol (Vitamin D2) 50,000 unit capsule, Take 1 capsule (50,000 Units total) by mouth once a week, Disp: 4 capsule, Rfl: 2 ibuprofen (ADVIL,MOTRIN) suspension 100 mg/5 mL, Take by mouth every 4 (four) hours as needed for pain, Disp: , Rfl: medroxyPROGESTERone (Depo-Provera) 150 mg/mL injection, as directed, Disp: , Rfl: venlafaxine XR (EFFEXOR-XR) 150 mg 24 hr capsule, Take 150 mg by mouth daily, Disp: , Rfl: Allergies Allergen Reactions Breo Ellipta [Fluticasone Furoate-Vilanterol] [...] Physical Exam GENERAL EXAM Vital signs: BP 123/83 (BP Location: Left arm, Patient Position: Sitting) Pulse 91 Temp 37.4 ??C (99.3 ??F) (Temporal) Resp 22 Ht 165 cm (5' 4.96 ) Wt 75.8 kg (167 lb 2 oz) SpO2 100% BMI 27.84 kg/m?? Well-appearing. No dysmorphic features. HEENT: normal [...] reflex flexor bilaterally. Coordination: No dysmetria on [id number] bilaterally Gait: deferred, previously Narrow base, steady. Normal tandem gait. Assessment/Plan Encounter Diagnoses Name Primary? Functional neurological symptom disorder with abnormal movement Yes Chronic migraine without aura without status migrainosus, not intractable Tourettes syndrome Lexie is a 17 yo who carries a diagnosis of bipolar [...] that she may have an Autism spectrum disorder. She reports significant sensory issues and difficulties with social interactions Clonidine continues to help with sleep and tics, so I am recommending continuing. Her tics and functional neurologic symptoms are worse, so we added a small dose of Abilify, which the family feels has helped so we will continue. 1. Continue Clonidine ER, [id number] 2. Return to OT 3. Recheck Vit D level 4. RTC 6 months Thank you for allowing me to participate in the care of your patient. If you have any questions, feel free to contact me at [phone]. I have provided the family with contact and emergency contactinformation. Please feel free to contact me if you have any additional questions. This was a F2F clinic visit. The patient visit started at 12:12 and ended at 12:42. My total encounter time on 12/14/2022 was 47 minutes which was spent in the activities documented in the note. This includes time spent prior to the visit and after the visit in direct care of the patient. Sincerely, Negrita Pride MD PhD [employer]im Gre[employer] Operator of Neurology Division of Pediatric Neurology Cerebral Palsy and Movement Disorders Section Director, Pediatric Deep Brain Stimulation Program documented in this encounter Plan of Treatment Not on file documented as of this encounter Visit Diagnoses Diagnosis Functional neurological symptom disorder with abnormal movement- Primary Chronic migraine without aura without status migrainosus, not intractable Tourettes syndrome Tourette's disorder documented in this encounter Discontinued Medications Medication Sig Discontinue Reason Start Date End Da te ergocalciferol (Vitamin D2) 50,000 unit capsule Take 1 capsule (50,000 Units total) by mouth once a week Reorder 07/06/2021 12/14/2022 cloNIDine ER (KAPVAY) 0.1 mg tablet extended release 12 hr Take 2 tablets (0.2 mg total) by mouth 2 (two) times a day Reorder 06/15/2022 12/14/2022 ARIPiprazole (ABILIFY) 2 mg tablet Take 1 tablet (2 mg total) by mouth daily Reorder 06/15/2022 12/14/2022 documented as of this encounter Historical Medications * This list may reflect changes made after this encounter. Medication Sig Dispense Quantity Refills Last Filled Start D ate End Date predniSONE (DELTASONE) 20 mg tablet daily 12/11/2022 added in this encounter Care Teams Retail Wireless Associate Relationship Specialty Start Date End Date Cortney Pineda NP [address] [place] [address] PCP - General 06/09/19 Bassem Cho MD [address] [place] [address] 12/20/18 documented as of this encounter
--- OUTSIDE RECORDS SUMMARY | 2024-10-16 03:36 | XMS_ITS | Encounter Summary ---
Author Organization [facility] Healthcare Address [address] [place] [address] Care Team Providers Care Pharmacy Intern Name Role Phone Bassem Cho MD Unavailable Cortney Pineda NP Primary Care Provider Vicky Ramachandran OT Unavailable [phone] Encounter Details Date Type Department Care Team (Late st Contact Info) Description 07/05/2021 12:45 PM CDT Lab [facility] [place] [address] Jimena Lim MD [address] [place] [address] [address] [place] [address] Menorrhagia with irregular cycle; Tic disorder Discharge Disposition: Discharge to home or self care Social History Tobacco Use Types Packs/Day Years Used Date Smoking Tobacco: Never Smokeless Tobacco: Never Alcohol Use Standard Drinks/Week Comments No 0 (1 standard drink = 0.6 oz pur e alcohol) Comments No Sex and Gender Information Value Date Recorded Sex Assigned at Not on file 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 01/07/2021 9:24 AM CDT Sexual Orientation Not on file documented as of this encounter Discharge Disposition Disposition Code Departure Means Destination Discharge to home or self care documented in this encounter Plan of Treatment Not on file documented as of this encounter Procedures Procedure Name Priority Date/Time Associated Diagnosis Comments DIFFERENTIAL AUTO Routine 07/05/2021 12: 45 PM CDT Menorrhagia with irregular cycle THYROID FUNCTION CASCADE Routine 07/05/2021 12:45 PM CDT Menorrhagia with irregular cycle IRON PROFILE W/ IBC Routine 07/05/2021 1 2:45 PM CDT Menorrhagia with irregular cycle CBC WITH AUTO DIFFERENTIAL Routine 07/05/2021 12:45 PM CDT Menorrhagia with irregular cycle VITAMIN D 25 HYDROXY Routine 07/05/2021 12:45 PM CDT Tic disorder VON WILLEBRAND FACTOR ACTIVITY (SCREEN) Routine 07/05/2021 12:45 PM CDT Menorrhagia with irregular cycle APTT Routine 07/05/2021 12:45 PM CDT Menorrhagia with irregular cycle PROTIME-INR Routine 07/05/2021 12:45 PM CDT Menorrhagia with irregular cycle PLATELET FUNCTION SCREEN Routine 07/05/2021 12:45 PM CDT Menorrhagia with irregular cycle RETICULOCYTES Routine 07/05/2021 12:45 PM CDT Menorrhagia with irregular cycle TESTOSTERONE, TOTAL AND FREE, SERUM Routine 07/05/2021 12:45 PM CDT Menorrhagia with irregular cycle LUTEINIZING HORMONE (LH) Routine 07/05/2021 12:45 PM CDT Menorrhagia with irregular cycle FOLLICLE STIMULATING HORMONE Routine 07/05/2021 12:45 PM CDT Menorrhagia with irregular cycle FERRITIN Routine 07/05/2021 12:45 PM CDT Menorrhagia with irregular cycle COMPREHENSIVE METABOLIC PANEL Routine 07/05/2021 12:45 PM CDT Tic disorder documented in this encounter Results * Differential, auto (07/05/2021 12:45 PM CDT) Neutrophil abs 3.1 1.7 - 6.5 K/cumm [facility] Imm gran abs 0.0 0.0 - 0.1 K/cumm [facility] Lymphocyte abs 1.6 0.8 - 3.3 K/cumm [facility] Monocyte abs 0.2 0.2 - 0.8 K/cumm [facility] Eosinophil abs 0.0 0.0 - 0.5 K/cumm [facility] Basophil abs 0.0 0.0 - 0.1 K/cumm [facility] Neutrophil pct 63.1 % [facility] Comment: Interpretive Data Percent cell count reference ranges are not reported, since discordance with absolute values may lead to misinterpretation of CBC data. Current Interpretive Data was last revised on 2018. Imm gran pct 0.4 % [facility] Comment: Interpretive Data Percent cell count reference ranges are not reported, since discordance with absolute values may lead to misinterpretation of CBC data. Current Interpretive Data was last revised on 2018. Lymphocyte pct 31.8 % [facility] Comment: Interpretive Data Percent cell count reference ranges are not reported, since discordance with absolute values may lead to misinterpretation of CBC data. Current Interpretive Data was last revised on 2018. Monocyte pct 4.1 % [facility] Comment: Interpretive Data Percent cell count reference ranges are not reported, since discordance with absolute values may lead to misinterpretation of CBC data. Current Interpretive Data was last revised on 2018. Eosinophil pct 0.2 % [facility] Comment: Interpretive Data Percent cell count reference ranges are not reported, since discordance with absolute values may lead to misinterpretation of CBC data. Current Interpretive Data was last revised on 2018. Basophil pct 0.4 % [facility] Comment: Interpretive Data Percent cell count reference ranges are not reported, since discordance with absolute values may lead to misinterpretation of CBC data. Current Interpretive Data was last revised on 2018. Blood 07/05/2021 12:4 5 PM CDT 07/05/2021 1:06 PM CDT us Jimena Lim MD LAB BLOOD ORDERABLES Final Result Performing Organization Address [facility]/ZIP Co de Phone Number [facility] [place] [address] * (ABNORMAL) Vitamin D 25 hydroxy (07/05/2021 12:45 PM CDT) Vitamin D 25-OH 14(L) 20 - 100 ng/mL [facility] Blood 07/05/2021 12:4 5 PM CDT 07/05/2021 1:06 PM CDT Narrative [facility] - 07/06/2021 12:17 PM CDT AGES: -18 years - Sufficient: 20-100 ng/mL; Borderline: 10-20 ng/mL; Deficient: <10 ng/mL. ??Reference intervals pertain to males and females from through age 18. ??Intervals reflect consensus clinical decision limits derived from various reports including the 2011 [place] [employer] Report on calcium and vitamin D. ??Vitamin D concentrations may vary widely depending on ethnic background, geographic location, and the time of the year the sample was obtained. ??References: ??1. Sander CL, Agnes CASTILLO. Prevention of Rickets and Vitamin D Deficiency in Infants, Children, and Adolescents. Pediatrics 2008;122:2230-9462. ??2. Tommy AC, Chelsea CL, Noble AL, Smith HB, eds. Dietary Reference Intakes for Calcium and Vitamin D. [place] of [employer]; National Academies Press:2011 ??3. Konrad GRACIELA, Harshad J, and Mustapha DJ. Circulating Intact Parathyroid Hormone is Suppressed at 25-hydroxyvitamin D Concentrations greater than 25 nmol/L. J Pediatr Endocrinol Metab 2014;doi:10.1515/rmwh-7140-5065. Last revised on 11/02/2017. us Negrita Pride MD PhD LAB BLOOD ORDERAB LES Final Result Performing Organization Address City/[facility]/ZIP Co de Phone Number [facility] [place] [address] * (ABNORMAL) Comprehensive metabolic panel (07/05/2021 12:45 PM CDT) Sodium 142 135 - 145 mmol/L [facility] Potassium, pl 4.2 3.3 - 4.9 mmol/L [facility] Chloride 113 100 - 114 mmol/L [facility] CO2 25 20 - 30 mmol/L [facility] Anion gap 4 2 - 15 mmol/L [facility] BUN 12 9 - 18 mg/dL [facility] Creatinine 0.51 0.40 - 1.00 mg/dL [facility] Glucose 96 70 - 199 mg/dL [facility] Comment: Interpretive Data Fasting glucose >/= 126 mg/dl is diagnostic for diabetes. ?? Fasting is defined as no caloric intake for at least 8 hours. Fasting glucose between 100 mg/dl to 125 mg/dl is diagnostic of prediabetes. In a patient with classic symptoms of hyperglycemia or hyperglycemic crisis, a random glucose >/= 200 mg/dl is diagnostic for diabetes. In the absence of unequivocal hyperglycemia, results should be confirmed by repeat testing. The classification and Diagnosis of Diabetes Diabetes Care 2019; 42:S13-S28. Current interpretive data was last revised 2017. Calcium 9.7 8.5 - 10.3 mg/dL [facility] Bilirubin, total 0.3 0.1 - 1.2 mg/dL [facility] Protein, pl 7.2 6.5 - 8.5 g/dL [facility] Albumin 4.8 3.2 - 5.0 g/dL [facility] Alk phos 59(L) 70 - 260 Units/L [facility] ALT 7 7 - 45 Units/L [facility] AST 12 10 - 50 Units/L [facility] Blood 07/05/2021 12:4 5 PM CDT 07/05/2021 1:06 PM CDT us Negrita Pride MD PhD LAB BLOOD ORDERAB LES Final Result [facility] [place] [address] * (ABNORMAL) CBC with auto differential (07/05/2021 12:45 PM CDT) [facility] WBC 4.9 3.8 - 9.9 K/cumm [facility] Hgb 11.9 11.9 - 15.5 g/dL [facility] Hct 37.3 35.6 - 45.5 % [facility] Plt 384 150 - 400 K/cumm [facility] MPV 9.2 9.1 - 12.3 fL [facility] RBC 4.62 3.90 - 5.20 M/cumm [facility] MCV 80.7(L) 81.3 - 96.4 fL [facility] MCH 25.8(L) 27.1 - 33.3 pg [facility] MCHC 31.9(L) 32.3 - 35.7 g/dL [facility] RDW CV 14.1 11.1 - 14.9 % [facility] RDW SD 40.7 35.7 - 48.1 fL [facility] NRBC abs 0.00 0.00 - 0.01 K/cumm [facility] Blood 07/05/2021 12:4 5 PM CDT 07/05/2021 1:06 PM CDT Jimena Lim MD LAB BLOOD ORDERABLES Final Result [facility] Department [place] [address] * Platelet Function Screen (07/05/2021 12:45 PM CDT) [facility] PFA-100, epinephrine 88 70 - 170 sec [facility] Comment: Interpretive Data The Collagen/Epinephrine measurement is used to detect platelet dysfunction due to intrinsic platelet defects, von Willebrand disease, or exposure to platelet inhibiting agents. ??The Collagen/Epinephrine measurement tests the thromboxane A2 pathway and is used to screen for qualitative platelet defects due to aspirin or NSAID effect. ??A normal ADP measurement indicates that an abnormal epinephrine result may be due to an effect of aspirin or a medication containing aspirin. Reference ranges: >= 2 year reference range was established at [facility]. Neonates < 30 days old: ??Cord blood ranges based on samples (n=7) collected from the unbilical vein within 10 minutes of delivery at [facility], [facility], [place], [place], [place]. ??Reference: ??Maribell ARTHUR, Renetta CASTILLO, Teresita VS. ??Use of the PFA-100 in the Assessment of Primary Platelet Related Hemostasis in a Pediatric Setting. ??Semin Thromb Hemost 1998;24:523-529. Ranges do not exist for newborns up to 2 years of age. Current interpretive data was last revised on 06. PFA-100, ADP 100.0 50.0 - 150.0 sec [facility] Comment: Interpretive Data Closure Time above the laboratory established cut-off could reflect reduced platelet function caused by hematocrit levels <35% or platelet counts <150,000/mcL. Specimens with hematocrit levels >50% or platelet counts >500,000/mcL have not been evaluated . Current interpretive data was last revised on 05. Blood 07/05/2021 12:4 5 PM CDT 07/05/2021 1:06 PM CDT Jimena Lim MD LAB BLOOD ORDERABLES Final Result Performing Organization Address [facility] Co de Phone Number [facility] Department [place] [address] * aPTT (07/05/2021 12:45 PM CDT) aPTT 36 27 - 37 sec [facility] Comment: Interpretive Data Therapeutic heparin range: 60.0 - 94.0 seconds. Based on correlation with therapeutic heparin activity range of 0.3-0.7 Units/mL. Current interpretive data was last revised on 2021. Blood 07/05/2021 12:4 5 PM CDT 07/05/2021 1:06 PM CDT Jimena Lim MD LAB BLOOD ORDERABLES Final Result Performing Organization Address [facility]/State/[facility] [place] [address] * (ABNORMAL) Protime-INR (07/05/2021 12:45 PM CDT) Pathologist [facility] PT 15.4(H) 10.0 - 15.0 sec [facility] INR 1.2 0.8 - 1.2 [facility] Comment: Interpretive data Oral anticoagulant therapeutic ranges: Venous thromboembolism prophylaxis or treatment: 2.0-3.0 CARDIOLOGY Standard range: 2.0-3.0 High-intensity range: 2.5-3.5 Refer to indication-specific guidelines for appropriate target ranges for prosthetic heart valve replacement. Current interpretive data was last revised on 2019. Blood 07/05/2021 12:4 5 PM CDT 07/05/2021 1:06 PM CDT Jimena Lim MD LAB BLOOD ORDERABLES Final Result Performing Organization Address [facility] Co de Phone Number [facility] [place] [address] * (ABNORMAL) Ferritin (07/05/2021 12:45 PM CDT) Pathologist [facility] Ferritin 12(L) 15 - 150 ng/mL [facility] Blood 07/05/2021 12:4 5 PM CDT 07/05/2021 1:06 PM CDT Jimena Lim MD LAB BLOOD ORDERABLES Final Result Performing Organization Address City/State/[facility] [place] [address] * Iron profile w/ IBC (07/05/2021 12:45 PM CDT) Iron 40 35 - 145 mcg/dL [facility] TIBC 390 250 - 400 mcg/dL [facility] Transferrin saturation 10 10 - 45 % [facility] Blood 07/05/2021 12:4 5 PM CDT 07/05/2021 1:06 PM CDT Jimena Lim MD LAB BLOOD ORDERABLES Final Result Performing Organization Address [facility] [place] [address] * Reticulocyte Count (07/05/2021 12:45 PM CDT) Retics, absolute 0.053 0.020 - 0.087 M/cumm [facility] Retics 1.2 0.4 - 2.9 % [facility] Reticulocyte Hgb 29.6 28.5 - 38.0 pg [facility] Blood 07/05/2021 12:4 5 PM CDT 07/05/2021 1:06 PM CDT Jimena Lim MD LAB BLOOD ORDERABLES Final Result Performing Organization Address [facility] [place] [address] * Von Willebrand factor activity (07/05/2021 12:45 PM CDT) Pathologist [facility] vWF activity 76 55 - 189 %norm [facility] Comment: Interpretive Data Von Willebrand factor (vWF) has two major physiologic functions: transporting factor VIII and adhering to platelets and collagen at sites of vascular injury. Screening tests for von Willebrand disease (vWD) include measuring vWF antigen concentration, plasma factor VIII activity, and in-vitro tests of vWF adhesion. An automated immunoassay (Instrument Laboratory von Willebrand factor activity: IL vWF act), is a sensitive screening test for vWF adhesion to platelets. Using a monoclonal antibody specific for the platelet binding domain of vWF, the IL vWF act test shows excellent discrimination between control subjects and patients with all types of vWD(1,2). IL vWF activity reference interval (based on healthy adult sample): 55%-189% To enhance specificity and minimize false positive results, if patients have an abnormal IL vWF act. below 55%, a reflex confirmatory test will be performed (ristocetin cofactor activity: vWF:RCo). The vWF:RCo combines control platelets, patient plasma, and an antibiotic (ristocetin) which enhances vWF-platelet adhesion, and monitors increased light transmission over time as platelets form larger clumps. Agreement between IL vWF act and vWF:RCo is very high, but discordant results may occur (low IL vWF act and normal vWF:RCo). If this occurs, retesting on a new plasma sample should be done since the vWF:RCo method is less precise than the IL vWF act. Consistent discordant results may require additional testing through a reference laboratory. 1. Emma RO, trever Weiner EM. A new automated screening assay for the diagnosis of von Willebrand disease. Am J Clin Path. 2007;127:730-5. 2. Krystin Swenson, Laurita DARNELL, Isa BJ, Naa RK, Tayler NEGRETE, Letty JA. Validation of an automated latex particle-enhanced immunoturbidimetric von Willebrand factor activity assay. J Thromb Haemost.2011;9:4070-0661. Current interpretive data was last revised on 2013. Testing performed by: [facility], [address] [place]., [address] Blood 07/05/2021 12:4 5 PM CDT 07/05/2021 2:20 PM CDT Jimena Lim MD LAB BLOOD ORDERABLES Final Result Performing Organization Address [facility] de Phone Number [facility] Department [place] [address] * TSH reflex to free T4 (07/05/2021 12:45 PM CDT) TSH 0.79 0.30 - 4.20 mcIUnit/mL [facility] Blood 07/05/2021 12:4 5 PM CDT 07/05/2021 1:06 PM CDT Jimena Lim MD LAB BLOOD ORDERABLES Final Result Performing Organization Address City/[facility]/[place] [address] * LH (07/05/2021 12:45 PM CDT) LH 11.9 IUnits/L [facility] Comment: Interpretive Data Males: Pre-pubertal: <0.1 IUnits/L Adults: 1-10 IUnits/L Females: Pre-pubertal: <0.1 IUnits/L Adults: Follicular: 2-13 IUnits/L Midcycle: 15-100 IUnits/L Luteal: 1-12 IUnits/L Postmenopause: 7-60 IUnits/L Pre-pubertal range may not be applicable to neonates and young infants. Current interpretive data was last revised on 06. Blood 07/05/2021 12:4 5 PM CDT 07/05/2021 1:06 PM CDT Jimena Lim MD LAB BLOOD ORDERABLES Final Result Performing Organization Address [facility] [place] [address] * Follicle stimulating hormone (07/05/2021 12:45 PM CDT) FSH 4.8 IUnits/L [facility] Comment: Interpretive Data Males: Pre-pubertal: <4 IUnits/L Adults: 1-15 IUnits/L Females: Pre-pubertal: <4 IUnits/L Adults: Follicular: 3-13 IUnits/L Midcycle: 4-22 IUnits/L Luteal: 1-9 IUnits/L Postmenopause: 25-135 IUnits/L Pre-pubertal range may not be applicable to neonates and young infants. Current interpretive data was last revised on 06. Blood 07/05/2021 12:4 5 PM CDT 07/05/2021 1:06 PM CDT us Jimena Lim MD LAB BLOOD ORDERABLES Final Result [facility] Department [place] [address] * Testosterone, Total and Free, Serum (07/05/2021 12:45 PM CDT) Testosterone 45.0 ng/dL [facility] Comment: Interpretive Data Reference values: ? Male(ng/dL) ?? Female(ng/dL) Premature (26-28w) Day 4: ??59-125 ?5-16 Premature (31-35w) Day 4: ??37-198 ?5-22 Newborns (full term): ?75-400 ?20-64 Males 1-7 months: Levels decrease rapidly the first week to 20-50 ng/dL, then increase to 60-400 ng/dL between 20-60 days. Levels then decline to prepubertal range levels of less than 2.5-10 ng/dL by seven months. Females 1-7 months: Levels decrease during the first month to less than 10 ng/dL and remain there until puberty. See [facility] Directory of Services or contact the laboratory for age related normals in puberty. Adult Males (Greater than or equal to 18 years): 264-916 ng/dL Adult Females (Greater than or equal to 18 years): Premenopausal: 10-55 ng/dL Postmenopausal: 7-40 ng/dL Testing performed by: [facility], [place] [address] Current interpretive data was last revised on 2017 Percent Free Testosterone 0.8 % [facility] Comment: Interpretive Data Testing performed by: [place] [address]. Testosterone, free 3.60 pg/mL [facility] Comment: Interpretive Data Testing performed by: [place] [address]. Sex steroid binding globulin 69.7 nmol/L [facility] Comment: Interpretive Data AGE ? RANGE 1 month-2 years ? 60-252 nmol/L Prepubertal (1-8 years) 72-220 nmol/L Pubertal Males ? 16-100 nmol/L Females ? 36-125 nmol/L Adult Males ? 20-50 years ? 16.5-55.9 nmol/L >=50 years ?19.3-76.4 nmol/L Adult Females 20-50 years ? 24.6-122.0 nmol/L >=50 years ?17.3-125.0 nmol/L Testing performed by: [facility], [place] [address]. Current interpretive data was last revised on 17. Blood 07/05/2021 12:4 5 PM CDT 07/05/2021 2:42 PM CDT us Jimena Lim MD LAB BLOOD ORDERABLES Final Result [facility] Department of Laboratories [place], [place] [id number] documented in this encounter Visit Diagnoses Diagnosis Menorrhagia with irregular cycle Tic disorder Tic disorder, unspecified documented in this encounter Care Teams Pharmacy Intern Relationship Specialty Start Date End Date Cortney Pineda DEV OPS ENGINEER [address] [place] [address] PCP - General 06/09/19 Bassem Cho MD [address] [place] [address] 12/20/18 Vicky Ramachandran, OT [address] [place] [address] Occupational Therapist Occupational Therapy 04/19/21 documented as of this encounter
--- OUTSIDE RECORDS SUMMARY | 2024-10-16 03:36 | XMS_ITS | Encounter Summary ---
Author Organization [facility] Address [address] [place] [address] Phone Care Team Providers Care Sugar Presser Name Role Phone Bassem Cho MD Unavailable [phone] Corteny Pineda NP Primary Care Provider [phone] Vicky Ramachandran OT Unavailable [phone] Reason for Referral * Consultation (Routine) - Closed Specialty Diagnoses / Procedures Referred By Juana richard Referred To Contact Pediatric Plastic Surgery Diagnoses Jimena Castillo MD [address] [place] [address] Phone: tel: fax: [facility] (All Locations) Referral ID Status Reason Start Date Expiration Date V isits Requested Visits Authorized [id number] Closed Specialty Services Required 07/07/2021 08/06/2022 99 99 Question Answer Please select the performing region: [facility] (All Locations) [167] # of visits: 1 * Medication Authorization - Closed Specialty Diagnoses / Procedures Referred By Juana t Referred To Contact Diagnoses Menorrhagia with irregular cycle Procedures OR MEDROXYPROGESTERONE ACETATE Jimena Lim MD 1 [facility] [address] [place] [address] Phone: tel: fax: Jimena Lim MD Phone: tel: fax: Referral ID Status Reason Start Date Expiration Date Visits Re quested Visits Authorized [id number] Closed 07/05/2021 08/04/2022 1 1 Reason for Visit * Medication Authorization - Closed Specialty Diagnoses / Procedures Referred By Contac t Referred To Contact Diagnoses Menorrhagia with irregular cycle Procedures OR MEDROXYPROGESTERONE ACETATE Jimena Lim MD [address] [address] Phone: tel: fax: Jimena Lim MD Phone: tel: fax: Referral ID Status Reason Start Date Expiration Date Visits Re quested Visits Authorized [id number] Closed 07/05/2021 08/04/2022 1 1 Encounter Details Date Type Department Care Team (Late st Contact Info) Description 07/05/2021 10:00 AM CDT Office Visit [facility] Adolescent Medicine 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 01/07/2021 9:24 AM CDT Sexual Orientation Not on file documented as of this encounter Last Filed Vital Signs Vital Sign Reading Time Taken Comments Blood Pressure 104/68 07/05/2021 10:32 AM CDT Pulse 87 07/05/2021 10:32 AM CDT Temperature 36.5 ??C (97.7 ??F) 07/05/2021 1 0:32 AM CDT Respiratory Rate 22 07/05/2021 10:3 2 AM CDT Oxygen Saturation 98% 07/05/2021 10: 32 AM CDT Inhaled Oxygen Concentration - - Weight 59.2 kg (130 lb 8.2 oz) 07/05/20 21 10:32 AM CDT Height 164 cm (5' 4.57 ) 07/05/2021 10: 32 AM CDT Body Mass Index 22.01 07/05/2021 10:32 AM CDT Body Mass Index Percentile 63.51% 07/05 10:32 AM CDT Growth Chart: [facility] (Girls, 2- 20 Years) documented in this encounter Progress Notes * Jimena Lim MD - 07/05/2021 10:00 AM CDT I am seeing Lexie Gross Troy as a consult at the request of Cortney Billy, STREET SUPERVISOR for heavy, prolonged periods HPI Lexie Oconnell is a 15 y.o. child here for evaluation of abnormal periods. Menarche was at age 8 years. Initial Bleeding pattern: Interval:pretty regular Duration of flow: less than a week; moderate flow Associated symptoms:n/a Dysmenorrhea? No Current Bleeding pattern: has a history of abnormal uterine bleeding, in [facility], was on OCPs for several years, history of anemia Interval: irregular - can be frequent or infrequent Duration of flow: usually longer than one week - up to 2 weeks; excessive, using 8 super tampons + pad tampons or pads per day; soaking through protection? Yes Recent large clots. Associated symptoms:fatigue, pain, dizziness Dysmenorrhea? Yes Last regular menstrual period: Patient's last menstrual period was 06/23/2021. Other menstrual symptoms include: Cramps: Yes ; Headaches: Yes ; Back pain: Yes ; Nausea: Yes ; Diarrhea: Yes ; Mood changes: Yes ; Fatigue Yes ; Acne flares: Yes ; Breast soreness: Yes Patient has been missing school and activities because of menstrual symptoms. Misses 2-3 days per month Patient has previously used OCPs, ibuprofen, tylenol, aleve, midol with incomplete improvement. Other supportive measures: heating pads Also - complains of enlarged breasts - heavy, back pain, grooves in shoulders, interest in reduction. 34DDD/34G. Estrogen contraindications: Migraine with aura: Yes Personal history of thrombophilia: No Patient has been tested Personal history of stroke: No Family history of thrombophilia: Yes Personal history of breast cancer: No History of hypertension: No History of ischemic heart disease: No Current smoker: No Contraindications for estrogen therapy identified: Yes REVIEW OF SYSTEMS Review of Systems Constitutional: Positive for malaise/fatigue. HENT: Negative for congestion and sore throat. Eyes: Negative for blurred vision. Respiratory: Negative for cough and shortness of breath. Cardiovascular: Negative for chest pain. Gastrointestinal: Negative for nausea and vomiting. Genitourinary: Negative for dysuria. Musculoskeletal: Positive for back pain. Negative for myalgias. Neurological: Positive for headaches. Endo/Heme/Allergies: Bruises/bleeds easily. Psychiatric/Behavioral: Positive for depression. Negative for suicidal ideas. PAST MEDICAL, SURGICAL, FAMILY, AND SOCIAL HISTORY Patient's past medical, surgical, family, and social histories were reviewed during this encounter and updated as appropriate. PHYSICAL EXAM BP 104/68 (BP Location: Right arm, Patient Position: Sitting) Pulse 87 Temp 36.5 ??C (97.7 ??F)(Temporal) Resp 22 Ht 164 cm (5' 4.57 ) Wt 59.2 kg (130 lb 8.2 oz) LMP 06/23/2021 SpO2 98% BMI 22.01 kg/m?? Body mass index is 22.01 kg/m??. Physical Exam Vitals reviewed. Constitutional: Appearance: Normal appearance. Lexie Oconnell is normal weight. HENT: Head: Normocephalic and atraumatic. Nose: Nose normal. Mouth/Throat: Mouth: Mucous membranes are moist. Pharynx: Oropharynx is clear. Eyes: Conjunctiva/sclera: Conjunctivae normal. Pupils: Pupils are equal, round, and reactive to light. Neck: Thyroid: No thyromegaly. Cardiovascular: Rate and Rhythm: Normal rate and regular rhythm. Pulses: Normal pulses. Heart sounds: Normal heart sounds. Pulmonary: Effort: Pulmonary effort is normal. Breath sounds: Normal breath sounds. Abdominal: Palpations: Abdomen is soft. Tenderness: There is no abdominal tenderness. Musculoskeletal: Cervical back: Neck supple. Right lower leg: No edema. Left lower leg: No edema. Lymphadenopathy: Cervical: No cervical adenopathy. Skin: General: Skin is warm. Capillary Refill: Capillary refill takes less than 2 seconds. Neurological: Mental Status: Lexie Oconnell is alert and oriented to person, place, and time. Psychiatric: Mood and Affect: Affect normal. LAB RESULTS: POC HCG: negative Review of previous results - last 2 CBCs show anemia. Most recent results June 2020. ASSESSMENT AND PLAN Lexie is a 15 y.o. with a history of abnormal uterine bleeding and history of anemia Abnormal uterine bleeding (AUB) in adolescents is most often associated with anovulatory cycles from an immature dwqomdchjlip-xlqlfurip-wnrwfdo axis, and will improve with time. However, abnormal bleeding can result in anemia which can be a presenting sign of a bleeding disorder. Patient vitals arestable and exam is unremarkable. Will continue evaluation and treatment in the outpatient setting with the following orders: Orders Placed This Encounter Procedures ??? CBC with auto differential Standing Status: Future Number of Occurrences: 1 Standing Expiration Date: 07/05/2022 ??? Platelet Function Screen Standing Status: Future Number of Occurrences: 1 Standing Expiration Date: 07/05/2022 ??? aPTT Standing Status: Future Number of Occurrences: 1 Standing Expiration Date: 07/05/2022 ??? Protime-INR Standing Status: Future Number of Occurrences: 1 Standing Expiration Date: 07/05/2022 ??? Ferritin Standing Status: Future Number of Occurrences: 1 Standing Expiration Date: 07/05/2022 ??? Iron profile w/ IBC Standing Status: Future Number of Occurrences: 1 Standing Expiration Date: 07/05/2022 ??? Reticulocyte Count Standing Status: Future Number of Occurrences: 1 Standing Expiration Date: 07/05/2022 ??? Von Willebrand factor activity Standing Status: Future Number of Occurrences: 1 Standing Expiration Date: 07/05/2022 ??? TSH reflex to free T4 Standing Status: Future Number of Occurrences: 1 Standing Expiration Date: 07/05/2022 ??? LH Standing Status: Future Number of Occurrences: 1 Standing Expiration Date: 07/05/2022 ??? Follicle stimulating hormone Standing Status: Future Number of Occurrences: 1 Standing Expiration Date: 07/05/2022 ??? Testosterone, Total and Free, Serum Standing Status: Future Number of Occurrences: 1 Standing Expiration Date: 07/05/2022 ??? POCT hCG, urine The goals of treating abnormal uterine bleeding and the associated anemia include: 1) Correct hemodynamic imbalance 2) Prevent uncontrolled blood loss 3) Correct anemia 4) Replenish iron stores Although she is hemodynamically stable, because of her continued menstrual bleeding and level of anemia it is important to prevent further menstrual bleeding until her body can correct the anemia andreplenish her iron stores. Discussed use and methods of various treatment options including hormone medication, although use of combined estrogen/progestin pills are contraindicated given her medicalhistory. Reviewed progestin-only options including side effects, risks and benefits including benefits and correct use, minor temporary side effects, serious but rare risks. Family chose Depo Provera - Discussed risks, benefits, normal side effects of irregular bleeding oramenorrhea, possible weight gain, and the concern over decreased bone density with prolonged use. 150 mg IM x1 today. Repeat injections every 3 months. Iron supplementation (Ferrous Sulfate 325 mg po daily) was recommended as well. Will also refer to plastic surgery for evaluation of concern for macromastia. Follow up in 11-13 weeks or sooner with problems. Jimena Lim MD documented in this encounter Plan of Treatment Scheduled Referrals Name Type Priority Associated Diagnoses Order Schedule Ambulatory referral to Pediatric Plastic Surgery Outpatient Referral Routine Macromastia Expected: 07/21/2021 (Approximate), Expires: 07/07/2022 documented as of this encounter Procedures Procedure Name Priority Date/Time Associated Diagnosis Comments POCT HCG, URINE Routine 07/05/2021 11:59 AM CDT Menorrhagia with irregular cycle documented in this encounter Results * Testosterone, Total and Free, Serum (07/05/2021 12:45 PM CDT) [facility] Testosterone 45.0 ng/dL [facility] Comment: Interpretive Data Reference values: ? Male(ng/dL) [...] ng/dL and remain there until puberty. See [facility] Directory of Services or contact the laboratory for age related normals in puberty. Adult Males (Greater than or equal to 18 years): 264-916 ng/dL Adult Females (Greater than or equal to 18 years): Premenopausal: 10-55 ng/dL Postmenopausal: 7-40 ng/dL Testing performed by: [facility], [place] [address] Current interpretive data was last revised on 2017 Percent Free Testosterone 0.8 % [facility] Comment: Interpretive Data Testing performed by: [place] [address]. Testosterone, free 3.60 pg/mL [facility] Comment: Interpretive Data Testing performed by: [place] [address]. Sex steroid binding globulin 69.7 nmol/L [facility] Comment: Interpretive Data AGE ? RANGE 1 month-2 years ? 60-252 nmol/L Prepubertal (1-8 years) 72-220 nmol/L Pubertal Males ? 16-100 nmol/L Females ? 36-125 nmol/L Adult Males ? 20-50 years ? 16.5-55.9 nmol/L >=50 years ?19.3-76.4 nmol/L Adult Females 20-50 years ? 24.6-122.0 nmol/L >=50 years ?17.3-125.0 nmol/L Testing performed by: [facility], [place] [address]. Current interpretive data was last revised on 17. Blood 07/05/2021 12:4 5 PM CDT 07/05/2021 2:42 PM CDT Jimena Lim MD LAB BLOOD ORDERABLES Final Result Performing Organization Address [facility] [place] [address] * Follicle stimulating hormone (07/05/2021 12:45 PM CDT) FSH 4.8 IUnits/L [facility] Comment: Interpretive Data Males: Pre-pubertal: <4 IUnits/L [...] ORDERABLES Final Result Performing Organization Address [facility] [place] [address] * LH (07/05/2021 12:45 PM CDT) LH 11.9 IUnits/L [facility] Comment: Interpretive Data Males: Pre-pubertal: <0.1 IUnits/L [...] BLOOD ORDERABLES Final Result Performing Organization Address City/[facility]/ZIP Co de Phone Number [facility] [place] [address] * TSH reflex to free T4 (07/05/2021 12:45 PM CDT) Pathologist [facility] TSH 0.79 0.30 - 4.20 mcIUnit/mL [facility] Blood 07/05/2021 12:4 5 PM CDT 07/05/2021 1:06 PM CDT Jimena Lim MD LAB BLOOD ORDERABLES Final Result [facility] [place] [facility] [address] * Von Willebrand factor activity (07/05/2021 12:45 PM CDT) Pathologist [facility] vWF activity 76 55 - 189 %norm [facility] Comment: Interpretive Data Von Willebrand factor (vWF) [...] through a reference laboratory. 1. Emma RO, van Regine EM. A new automated screening assay for the diagnosis of von Willebrand disease. Am J Clin Path. 2007;127:730-5. 2. Krystin D, Laurita DARNELL, Isa BJ, Naa RK, Tayler WL, Letty JA. Validation of an automated latex particle-enhanced immunoturbidimetric von Willebrand factor activity assay. J Thromb Haemost.2011;9:4901-7736. Current interpretive data was last revised on 2013. Testing performed by: [facility], [address] [facility], [place]., [address] Blood 07/05/2021 12:4 5 PM CDT 07/05/2021 2:20 PM CDT Jimena Lim MD LAB BLOOD ORDERABLES Final Result [facility] Department [place] [address] * Reticulocyte Count (07/05/2021 12:45 PM CDT) Retics, absolute 0.053 0.020 - 0.087 M/cumm [facility] Retics 1.2 0.4 - 2.9 % [facility] Reticulocyte Hgb 29.6 28.5 - 38.0 pg [facility] Blood 07/05/2021 12:4 5 PM CDT 07/05/2021 1:06 PM CDT Jimena Lim MD LAB BLOOD ORDERABLES Final Result Performing Organization Address City/[facility]/[place] [address] * Iron profile w/ IBC (07/05/2021 12:45 PM CDT) Iron 40 35 - 145 mcg/dL [facility] TIBC 390 250 - 400 mcg/dL [facility] Transferrin saturation 10 10 - 45 % [facility] Blood 07/05/2021 12:4 5 PM CDT 07/05/2021 1:06 PM CDT Jimena Lim MD LAB BLOOD ORDERABLES Final Result Performing Organization Address City/[facility]/ZIP Co de Phone Number [facility] [place] [address] * (ABNORMAL) Ferritin (07/05/2021 12:45 PM CDT) Ferritin 12(L) 15 - 150 ng/mL [facility] Blood 07/05/2021 12:4 5 PM CDT 07/05/2021 1:06 PM CDT Jimena Lim MD LAB BLOOD ORDERABLES Final Result [facility] [place] [address] * (ABNORMAL) Protime-INR (07/05/2021 12:45 PM CDT) PT 15.4(H) 10.0 - 15.0 sec [facility] INR 1.2 0.8 - 1.2 [facility] Comment: Interpretive data Oral anticoagulant therapeutic ranges: Venous thromboembolism prophylaxis or treatment: 2.0-3.0 CARDIOLOGY Standard range: 2.0-3.0 High-intensity range: 2.5-3.5 Refer to indication-specific guidelines for appropriate target ranges for prosthetic heart valve replacement. Current interpretive data was last revised on 2019. Blood 07/05/2021 12:4 5 PM CDT 07/05/2021 1:06 PM CDT Jimena Lim MD LAB [place] [address] * aPTT (07/05/2021 12:45 PM CDT) Pathologist [facility] aPTT 36 27 - 37 sec [facility] Comment: Interpretive Data Therapeutic heparin range: 60.0 - 94.0 seconds. Based on correlation with therapeutic heparin activity range of 0.3-0.7 Units/mL. Current interpretive data was last revised on 2021. Blood 07/05/2021 12:4 5 PM CDT 07/05/2021 1:06 PM CDT Jimena Lim MD LAB [place]LOOD [place] [address] * Platelet Function Screen (07/05/2021 12:45 PM CDT) PFA-100, epinephrine 88 70 - 170 sec [facility] Comment: Interpretive Data The Collagen/Epinephrine measurement is [...] 2 year reference range was established at [facility]. Neonates < 30 days old: ??Cord blood ranges based on samples (n=7) collected from the unbilical vein within 10 minutes of delivery at [facility], [facility], [place], [place], [place]. ??Reference: ??Maribell ARTHUR, Renetta CASTILLO, Teresita VS. ??Use of the PFA-100 in the Assessment of Primary Platelet Related Hemostasis in a Pediatric Setting. ??Semin Thromb Hemost 1998;24:523-529. Ranges do not exist for newborns up to 2 years of age. Current interpretive data was last revised on 06. PFA-100, ADP 100.0 50.0 - 150.0 sec [facility] Comment: Interpretive Data Closure Time above the [...] Lim MD LAB BLOOD ORDERABLES Final Result [facility] Department [place] [address] * (ABNORMAL) CBC with auto differential (07/05/2021 12:45 PM CDT) WBC 4.9 3.8 - 9.9 K/cumm [facility] Hgb 11.9 11.9 - 15.5 g/dL [facility] Hct 37.3 35.6 - 45.5 % [facility] Plt 384 150 - 400 K/cumm [facility] MPV 9.2 9.1 - 12.3 fL [facility] RBC 4.62 3.90 - 5.20 M/cumm [facility] MCV 80.7(L) 81.3 - 96.4 fL [facility] MCH 25.8(L) 27.1 - 33.3 pg [facility] MCHC 31.9(L) 32.3 - 35.7 g/dL [facility] RDW CV 14.1 11.1 - 14.9 % [facility] RDW SD 40.7 35.7 - 48.1 fL [facility] NRBC abs 0.00 0.00 - 0.01 K/cumm [facility] Blood 07/05/2021 12:4 5 PM CDT 07/05/2021 1:06 PM CDT Jimena Lim MD LAB BLOOD ORDERABLES Final Result [facility] Department [place] [address] * (ABNORMAL) POCT hCG, urine (07/05/2021 11:59 AM CDT) HCG, ur, POC Negative Lot Number [id number] QC Backgroud Clear Acceptable QC Control Line Acceptable Urine 07/05/2021 11:5 9 AM CDT Jimena Lim MD POINT OF CARE TEST OR DERABLES Final Result documented in this encounter Visit Diagnoses Diagnosis Menorrhagia with irregular cycle- Primary History of anemia Personal history of diseases of blood and blood-forming organs Macromastia Hypertrophy of breast documented in this encounter Administered Medications Inactive Administered Medications - up to 3 most recent administrations Medication Order MAR Action Action Date Dose Rate Site medroxyPROGESTERone (DEPO-PROVERA) 150 mg/mL injection 150 mg 150 mg, intramuscular, Once, On Sun07/05/21 at 1230, For 1 dose, Jarrodke wellIndications:Menorrha hilario with irregular cycle Given 07/05/2021 12:05 PM CDT 150 mg Right Dorsogluteal/Butto ck documented in this encounter Discontinued Medications Medication Sig Discontinue Reason Start Date End Da te norgestimate-ethinyl estradiol (ORTHO-CYCLEN) 0.25-35 mg-mcg per tablet Take 1 tablet by mouth daily. Therapy completed 11/15/2018 07/05/2021 cyproheptadine (PERIACTIN) 4 mg tabletIndications:Migra ine with status migrainosus, not intractable, unspecified migraine type Take 0.5 tablets (2 mg total) by mouth 2 (two) times a day Therapy completed 05/07/2019 07/05/2021 pimozide (ORAP) 2 mg tablet Take 2 mg by mouth 2 (two) times a day Therapy completed 04/29/2019 07/05/2021 ferrous sulfate elixir 220 mg/5 mL (44 mg/5 mL of elemental iron) Take 5 mL (44 mg of elemental iron total) by mouth daily Therapy completed 06/09/2020 07/05/2021 oseltamivir (TAMIFLU) 75 mg capsule Therapy completed 07/05/2021 predniSONE (DELTASONE) 20 mg tablet Therapy completed 07/05/2021 SYMBICORT 160-4.5 mcg/actuation inhaler INL 2 PFS PO BID Therapy completed 08/20/2018 021 venlafaxine XR (EFFEXOR-XR) 150 mg 24 hr capsule daily Therapy completed 04/28/2019 07/05/2021 documented as of this encounter Historical Medications * This list may reflect changes made after this encounter. Advair Diskus 500-50 mcg/dose diskus inhaler Inhale 1 puff 2 (two) times a day 05/24/2021 predniSONE (DELTASONE) 20 mg tablet 07/05/2021 oseltamivir (TAMIFLU) 75 mg capsule 07/05/2021 added in this encounter Care Teams Sugar Presser Relationship Specialty Start Date End Date Cortney Pineda NP [address] [place] [address] PCP - General 06/09/19 Bassem Cho MD [address] [place] [address] [place] [id number] 12/20/18 Vicky Ramachandran OT [address] [place] [address] Occupational Therapist Occupational Therapy 04/19/21 documented as of this encounter
--- OUTSIDE RECORDS SUMMARY | 2024-10-16 03:36 | XMS_ITS | Encounter Summary ---
Author Organization [facility] Address [address] [place] [address] Phone Care Team Providers Care Forward Air Controller/Air Officer Name Role Phone Bassem Cho MD Unavailable [phone] Cortney Pineda NP Primary Care Provider [phone] Vicky Ramachandran OT Unavailable Reason for Referral * Cardiology (Routine) - Closed Specialty Diagnoses / Procedures Referred By Kendalac t Referred To Contact Diagnoses Encounter for medication monitoring Procedures ECG 12 lead Silvio Tam MD Phone: tel: fax: [facility] (All Locations) Referral ID Status Reason Start Date Expiration Date Visits Re quested Visits Authorized [id number] Closed 05/25/2022 06/24/2023 1 1 Reason for Visit * Cardiology (Routine) - Closed Specialty Diagnoses / Procedures Referred By Juana richard Referred To Contact Diagnoses Encounter for medication monitoring Procedures ECG 12 lead Silvio Tam MD Phone: tel: fax: [facility] (All Locations) Referral ID Status Reason Start Date Expiration Date Visits Re quested Visits Authorized [id number] Closed 05/25/2022 06/24/2023 1 1 Encounter Details Date Type Department Care Team (Latest Contact Info) Description 05/26/2022 1:57 PM CDT - 05/26/2022 11:59 PM CDT Hospital Encounter [facility] Pediatric Cardiology [facility] [address] [place] [address] Encounter for medication monitoring Discharge Disposition: Discharge to home or self care Social History Tobacco Use Types Packs/Day Years Used Date Smoking Tobacco: Never Smokeless Tobacco: Never Alcohol Use Standard Drinks/Week Comments No 0 (1 standard drink = 0.6 oz pur e alcohol) Comments No Sex and Gender Information Value Date Recorded Sex Assigned at Not on file Legal Sex Female 6:43 AM DOOR CUTTER Gender Identity . 01/07/2021 9:24 AM CDT [...] needed for wheezing or shortness of breath divalproex ER (DEPAKOTE ER) 500 mg 24 hr tablet Take 1 tablet (500 mg total) by mouth daily ibuprofen (ADVIL,MOTRIN) suspension 100 mg/5 mLIndications:la st dose 1300 Take by mouth every 4 (four) hours as needed for pain ARIPiprazole (ABILIFY) 2 mg tablet Take 1 tablet (2 mg total) by mouth daily 30 tablet 2 05/29/2022 2 clonazePAM (KlonoPIN) 1 mg tablet Take 1 [...] 2 (two) times a day 120 tablet 5 05/25/2022 2 ergocalciferol (Vitamin D2) 50,000 unit capsule Take 1 capsule (50,000 Units total) by mouth once a week 4 capsule 2 07/06/2021 3 ferrous sulfate 325 mg (65 mg of elemental iron) tabletIndication s:Iron Deficiency Anemia Take 1 tablet (325 mg total) by mouth daily with breakfast 30 tablet 3 07/06/2021 2 venlafaxine XR (EFFEXOR-XR) 150 mg 24 hr capsule Take 1 capsule (150 mg total) by mouth daily 3 documented as of this encounter Discharge Disposition Disposition Code Departure Means Destination Discharge to home or self care documented in this encounter Plan of Treatment Not on file documented as of this encounter Procedures Procedure Name Priority Date/Time Associated Diagnosis Comments ECG 12-LEAD Routine 05/26/2022 3:23 PM CDT Encounter for medication monitoring documented in this encounter Results * ECG 12 lead (05/26/2022 3:23 PM CDT) Ventricular Rate EKG/Min 74 BPM [facility] Atrial Rate 74 BPM [facility] OR-Interval (MSEC) 148 ms [facility] QRS-Interval (MSEC) 80 ms [facility] QT-Interval (MSEC) 360 ms [facility] QTc 400 ms [facility] P [place] 53 degrees [facility] R [place] 87 degrees [facility] T [place] 48 degrees [facility] Diagnosis Normal sinus rhythm Normal ECG No previous ECGs available Confirmed by Ayala Lincoln ([id number]) on 05/26/2022 3:14:33 PM [facility] 05/26/2022 2:01 PM CDT 05/26/2022 3:14 PM CDT us Silvio Tam MD ECG ORDERABLES Final Result [facility] documented in this encounter Visit Diagnoses Diagnosis Encounter for medication monitoring Encounter for therapeutic drug monitoring documented in this encounter Care Teams Forward Air Controller/Air Officer Relationship Specialty Start Date End Date Cortney Pineda, SCHOOL BUS DRIVER [address] [place] [address] PCP - General 06/09/19 Bassem Cho MD [address] [place] [id number] 12/20/18 Vicky Ramachandran OT [address] [place] [address] Occupational Therapist Occupational Therapy 04/19/21 documented as of this encounter
--- OUTSIDE RECORDS SUMMARY | 2024-10-16 03:36 | XMS_ITS | Encounter Summary ---
Author Organization [facility] Address [address] [place] [address] Phone Care Team Providers Care Loan Servicing Specialist Name Role Phone Bassem Cho MD Unavailable [phone] Cortney Pineda NP Primary Care Provider [phone] Vicky Ramachandran OT Unavailable [phone] Encounter Details Date Type Department Care Team (Late st Contact Info) Description 11/10/2021 Telephone [facility] 2[address] [place] [address] [place] [address] Jio Chris Social History Tobacco Use Types Packs/Day Years Used Date Smoking Tobacco: Never Smokeless Tobacco: Never Alcohol Use Standard Drinks/Week Comments No 0 (1 standard drink = 0.6 oz pur e alcohol) Comments No Sex and Gender Information Value Date Recorded Sex Assigned at Not on file Legal Sex Female 6:43 AM SPECIAL EDUCATION TEACHER Gender Identity . 01/07/2021 9:24 AM CDT Sexual Orientation Not on file documented as of this encounter Miscellaneous Notes * Telephone Encounter - [place] Chris - 11/10/2021 12:40 PM CST L/m for mom letting her know that I received answer from insurance and I wanted to let her know that they said Mom sent a my chart message asking if we heard back from insurance. Let her know that [facility] said that its a plan exclusion and if they want to proceed I can give them a self pay quote. IAL EDUCATION TEACHER IAL EDUCATION TEACHER documented in this encounter Plan of Treatment Not on file documented as of this encounter Visit Diagnoses Not on filedocumented in this encounter Care Teams Loan Servicing Specialist Relationship Specialty Start Date End Date Cortney Pineda [employer] MATH TEACHER [address] [facility] [place] [address] PCP - General 06/09/19 Bassem Cho MD [address] [place] [address] 12/20/18 Vicky Ramachandran, OT [address] [place] [address] Occupational Therapist Occupational Therapy 04/19/21 documented as of this encounter
--- OUTSIDE RECORDS SUMMARY | 2024-10-16 03:36 | XMS_ITS | Encounter Summary ---
Author Organization [facility] Address [address] [place] [address] Phone Care Team Providers Care Peoplesoft Fscm Developer Name Role Phone Bassem Cho MD Unavailable [phone] Cortney Pineda NP Primary Care Provider [phone] Vicky Ramachandran OT Unavailable [phone] Reason for Visit * Reason Onset Date Comments Test Results 07/06/2021 Encounter Details Date Type Department Care Team (Late st Contact Info) Description 07/06/2021 Telephone [facility] Adolescent Medicine [facility] 2nd [place] [address] [place] [address] Ruthann Victoria RN Test Results Social History Tobacco Use Types Packs/Day Years Used Date Smoking Tobacco: Never Smokeless Tobacco: Never Alcohol Use Standard Drinks/Week Comments No 0 (1 standard drink = 0.6 oz pur e alcohol) Comments No Sex and Gender Information Value Date Recorded Sex Assigned at Not on file Legal Sex Female 6:43 AM RN COMPLIANCE Gender Identity . 01/07/2021 9:24 AM CDT Sexual Orientation Not on file documented as of this encounter Ordered Prescriptions Prescription Sig Dispense Quantity Refills Last Filled Start Date End Date ferrous sulfate 325 mg (65 mg of elemental iron) tabletIndications: Iron Deficiency Anemia Take 1 tablet (325 mg total) by mouth daily with breakfast 30 tablet 3 07/06/2021 2 ergocalciferol (Vitamin D2) 50,000 unit capsule Take 1 capsule (50,000 Units total) by mouth once a week 4 capsule 2 07/06/2021 3 documented in this encounter Miscellaneous Notes * Telephone Encounter - Thanh Lim MD - 07/06/2021 4:27 PM CDT Orders sent * Telephone Encounter - Ruthann Victoria RN - 07/06/2021 4:06 PM CDT I spoke to Lexie's mother and reviewed all lab results as below. Dr Lim recommends iron and Vit D supplementation. Mom would like to go ahead and have her try iron pills and softgel caps for Vit D. She is interested in weekly dosing of Vit D. When patient has more intense tics, it is hard for her to swallow pills. Mom reports this is betterand she wants to give it a try for a while. OK to send scripts to pharmacy in [facility] in [place]. Let mother know that testosterone is still pending and will be 10 days or so for results. She had no further questions. * Telephone Encounter - Ruthann Victoria RN - 07/06/2021 4:06 PM CDT ----- Message from Thanh Lim MD sent at 07/06/2021 1:25 PM CDT ----- Regarding: results Could you let mom know that most of the labs are back - no anemia or concern for bleeding disorder,but she has low iron and low vitamin D. I'd like to supplement, but this patient has had difficultywith pills recently. She was previously prescribed liquid fe, but she's not going to take it - which I understand. We can do the weekly vitamin d for 12 weeks if she thinks she can handle one pill a week. If she can't do daily iron supplementation, we can maybe offer a nutrition consult to discuss dietary iron? Hormones levels also normal but the testosterone is still pending. Thanks, thanh documented in this encounter Plan of Treatment Not on file documented as of this encounter Visit Diagnoses Not on filedocumented in this encounter Care Teams Peoplesoft Fscm Developer Relationship Specialty Start Date End Date Cortney Pineda NP [address] [facility] [place] [address] PCP - General 06/09/19 Bassem Cho MD [address] [place] [address] 12/20/18 Vicky Ramachandran, DAVID [address] [place] [address] Occupational Therapist Occupational Therapy 04/19/21 documented as of this encounter
--- OUTSIDE RECORDS SUMMARY | 2024-10-16 03:36 | XMS_ITS | Encounter Summary ---
Author Organization [facility] Address [address] [place] [address] Phone Care Team Providers Care Nut Threader Name Role Phone Bassem Cho MD Unavailable [phone] Cortney Pineda NP Primary Care Provider [phone] Reason for Visit * Reason Onset Date Comments Lab Results 12/18/2022 Encounter Details Date Type Department Care Team (Late st Contact Info) Description 12/18/2022 Telephone [facility] 2[address] [place] [address] [place] [address] Jayashree Davila RN Lab Results Social History Tobacco Use Types Packs/Day Years Used Date Smoking Tobacco: Never Smokeless Tobacco: Never Alcohol Use Standard Drinks/Week Comments No 0 (1 standard drink = 0.6 oz pur e alcohol) PHQ-2 Answer Date Recorded PHQ-2 TOTAL SCORE 3 09/07/2022 Comments No Sex and Gender Information Value Date Recorded Sex Assigned at Not on file Legal Sex Female 6:43 AM BPO SPECIALIST Gender Identity . 01/07/2021 9:24 AM CDT Sexual Orientation Not on file documented as of this encounter Miscellaneous Notes * Telephone Encounter - Jayashree Davila RN - 12/18/2022 10:45 AM CDT Images from the original note were not included. RN spoke with mother, Mariola, notifying of normal lab results. Mother was then transferred to admin staff to set up appointment for next depo injection. Mother had no other questions at this time. Thanh Lim MD [address] [facility] Nurse Pool Could you let patient know that hormone labs are normal? Thanks! thanh documented in this encounter Plan of Treatment Not on file documented as of this encounter Visit Diagnoses Not on filedocumented in this encounter Care Teams Nut Threader Relationship Specialty Start Date End Date Cortney Pineda, INSURANCE AGENCY SALES MANAGER [address] [place] [address] PCP - General 06/09/19 Bassem Cho MD [address] [place] [address] 12/20/18 documented as of this encounter
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
--- OUTSIDE RECORDS SUMMARY | 2024-10-16 03:36 | XMS_ITS | Encounter Summary ---
Author Organization [facility] Address [address] [place] [address] Phone Care Team Providers Care Shop Superintendent Name Role Phone Bassem Cho MD Unavailable [phone] Cortney Pineda NP Primary Care Provider [phone] Vicky Ramachandran OT Unavailable [phone] Reason for Referral * Medication Authorization (Routine) - Closed Specialty Diagnoses / Procedures Referred By Juana t Referred To Contact Diagnoses Encounter for management and injection of depo-Provera Jimena Lim MD [address] [address] Phone: tel: fax: Referral ID Status Reason Start Date Expiration Date Visits Re quested Visits Authorized [id number] Closed 06/21/2022 07/21/2023 1 1 Reason for Visit * Medication Authorization (Routine) - Closed Specialty Diagnoses / Procedures Referred By Juana richard Referred To Contact Diagnoses Encounter for management and injection of depo-Provera Jimena Lim MD [address] [address] Phone: tel: fax: Referral ID Status Reason Start Date Expiration Date Visits Re quested Visits Authorized [id number] Closed 06/21/2022 07/21/2023 1 1 Encounter Details Date Type Department Care Team (Late st Contact Info) Description 06/21/2022 11:30 AM CDT Office Visit [facility] Adolescent Medicine [address] [facility] 2[address] [place] [address] [place] [address] Jimena Lim MD [address] [facility] [address] [place] [address] Encounter for management and injection of depo-Provera (Primary Dx) Social History Tobacco Use Types Packs/Day Years Used Date Smoking Tobacco: Never Smokeless Tobacco: Never Alcohol Use Standard Drinks/Week Comments No 0 (1 standard drink = 0.6 oz pur e alcohol) Comments No Sex and Gender Information Value Date Recorded Sex Assigned at Not on file 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 01/07/2021 9:24 AM CDT Sexual Orientation Not on file documented as of this encounter Last Filed Vital Signs Vital Sign Reading Time Taken Comments Blood Pressure 116/78 06/21/2022 11:41 AM CDT Pulse 82 06/21/2022 11:41 AM CDT Temperature - - Respiratory Rate 18 06/21/2022 11:4 1 AM CDT Oxygen Saturation 100% 06/21/2022 11: 41 AM CDT Inhaled Oxygen Concentration - - Weight 64.7 kg (142 lb 10.2 oz) 022 11:41 AM CDT Height 164 cm (5' 4.57 ) 06/21/2022 11: 41 AM CDT Body Mass Index 24.06 06/21/2022 11:41 AM CDT Body Mass Index Percentile 77.09% 06/21 11:41 AM CDT Growth Chart: CDC (Girls, 2- 20 Years) documented in this encounter Progress Notes * Jimena Lim MD - 06/21/2022 11:30 AM CDT Lexie Beezabeth Anish is a 16 y.o. adult here for repeat Depo Provera injection. HPI Date of first depo: 07/05/21 Last injection:04/04/22 Weeks since last injection: 11 Weight change since last appointment: +1 Reason for Depo Provera use: Heavy menstrual bleeding. Side effects: no breakthrough bleeding, mild cramping in past few days Medication interactions: No Interested in continuing? Yes Interim COVID infection PAST MEDICAL, SURGICAL, FAMILY, AND SOCIAL HISTORY Patient's past medical, surgical, family, and social histories were reviewed during this encounter and updated as appropriate. MEDICATIONS Patient's medications have been reviewed during this encounter and updated as appropriate. ALLERGIES Allergies Allergen Reactions Breo Ellipta [Fluticasone Furoate-Vilanterol] Rash Fluticasone Hives Hives Vilanterol Hives Hives REVIEW OF SYSTEMS Review [...] easily. Psychiatric/Behavioral: Negative for depression. EXAM BP 116/78 Pulse 82 Resp 18 Ht 164 cm (5' 4.57 ) Wt 64.7 kg (142 lb 10.2 oz) SpO2 100% BMI 24.06 kg/m?? Physical Exam Vitals reviewed. Constitutional: Appearance: Normal appearance. Lexie Oconnell is normal weight. Pulmonary: Effort: Pulmonary effort is normal. Skin: General: Skin is cool. Neurological: General: No focal deficit present. Mental Status: Lexie Oconnell is alert and oriented to person, place, and time. Psychiatric: Mood and Affect: Affect normal. ASSESSMENT AND PLAN Menorrhagia Doing well on Depo Provera, Continue Depo Provera - 150 mg IM today. Reviewed risks, benefits, normal side effects of irregularbleeding or amenorrhea, possible weight gain, and the concern over decreased bone density with prolonged use. Encouraged follow up in 11-12 weeks. Administrations This Visit medroxyPROGESTERone (DEPO-PROVERA) 150 mg/mL injection 150 mg Admin Date 06/21/2022 Action Given Dose 150 mg Route intramuscular Administered By Townson, Tamia, CUT TO LENGTH OPERATOR FOLLOW UP Follow up in 11-12 weeks [...] 150 mg 150 mg, intramuscular, Once, On Sun06/21/22 at 1145, For 1 dose, Shake wellIndications:Encounte r for management and injection of depo-Provera Given 06/21/2022 11:48 AM CDT 150 mg Right Dorsogluteal/Butto ck documented in this encounter Care Teams Shop Superintendent Relationship Specialty Start Date End Date Cortney Pineda NP [address] [facility] [place] [address] PCP - General 06/09/19 Bassem Cho MD [address] [place] [address] 12/20/18 Vicky Ramachandran OT [address] [place] [address] Occupational Therapist Occupational Therapy 04/19/21 documented as of this encounter
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
--- OUTSIDE RECORDS SUMMARY | 2024-10-16 03:36 | XMS_ITS | Encounter Summary ---
Author Organization [facility] Address [address] [place] [address] Phone Care Team Providers Care Automatic Corn Grinder Operator Name Role Phone Bassem Cho MD Unavailable [phone] Cortney Pineda NP Primary Care Provider [phone] Vicky Ramachandran OT Unavailable [phone] Encounter Details Date Type Department Care Team (Late st Contact Info) Description 11/04/2021 Telephone [facility] Chloé Mercado Social History Tobacco Use Types Packs/Day Years Used Date Smoking Tobacco: Never Smokeless Tobacco: Never Alcohol Use Standard Drinks/Week Comments No 0 (1 standard drink = 0.6 oz pur e alcohol) Comments No Sex and Gender Information Value Date Recorded Sex Assigned at Not on file Legal Sex Female 6:43 AM BARBER STYLIST Gender Identity . 01/07/2021 9:24 AM CDT Sexual Orientation Not on file documented as of this encounter Miscellaneous Notes * Telephone Encounter - Chloé Mercado - 11/04/2021 2:40 PM CST ----- Message from Joi Chris sent at 10/20/2021 8:54 AM BARBER STYLIST ----- Regarding: possible surgical patient ORDERING PROVIDER:Dr. Kerri Coffman ? PROCEDURE DESCRIPTION: Bilateral Breast Reduction. ? CPT CODE: 94688 x 2 ? DIAGNOSIS CODE: M54.9, N62 ? [facility] ?? -Clinic Yes -OR -Other ? ADMIT STATUS: none ? TENTATIVE DATE OF SERVICE: ID # [id number] Predetermination: [facility] per [facility] provider portal [facility] (10/01/2021 - 09/30/2022)Provider is In-Network with this policy No referrals required Benefits: deductible 3,000( 0 met ) Family Deductible 6,000( 178.02 met ) Pd @ 80/20 OFP 6,000( 156.76 met ) Family OFP 12,000( 544.78 met ) Submitted on line for CPT 09786 x 2, M54.9, N62 @ [facility] date 11/28/2021 - 02/26/2022 Pending Auth #[id number] Division notified via In [employer] 11/04/2021 Predetermination per fax from [facility] CPT 39291 x 2, M54.9, N62 @ [facility] dummy date 11/28/2021 - 02/26/2022 Pending Auth #[id number] Denied; Policy Exclusion Division notified via in [employer] 11/08/2021 ER STYLIST ER STYLIST ER STYLIST documented in this encounter Plan of Treatment Not on file documented as of this encounter Visit Diagnoses Not on filedocumented in this encounter Care Teams Automatic Corn Grinder Operator Relationship Specialty Start Date End Date Cortney Pineda NP [address] [place] [address] PCP - General 06/09/19 Bassem Cho MD [address] [place] [address] 12/20/18 Vicky Ramachandran, OT [address] [place] [address] Occupational Therapist Occupational Therapy 04/19/21 documented as of this encounter
--- OUTSIDE RECORDS SUMMARY | 2024-10-16 03:36 | XMS_ITS | Encounter Summary ---
Author Organization [facility] Address [address] [place] [address] Phone Care Team Providers Care Kst Operator Name Role Phone Bassem Cho MD Unavailable [phone] Cortney Pineda NP Primary Care Provider [phone] Vicky Ramachandran OT Unavailable Reason for Referral * Medication Authorization (Routine) - Closed Specialty Diagnoses / Procedures Referred By Contac t Referred To Contact Diagnoses Encounter for management and injection of depo-Provera Jimena Lim MD [address] [place] [address] Phone: tel: fax: Jimena Lim MD Phone: tel: fax: Referral ID Status Reason Start Date Expiration Date Visits Re quested Visits Authorized [id number] Closed 09/07/2022 10/07/2023 1 1 R ASSEMBLER Reason for Visit * Medication Authorization (Routine) - Closed Specialty Diagnoses / Procedures Referred By Contac t Referred To Contact Diagnoses Encounter for management and injection of depo-Provera Jiemna Lim MD [address] [address] Phone: tel: fax: Jimena Lim MD Phone: tel: fax: Referral ID Status Reason Start Date Expiration Date Visits Re quested Visits Authorized [id number] Closed 09/07/2022 10/07/2023 1 1 Encounter Details Date Type Department Care Team (Late st Contact Info) Description 09/07/2022 11:00 AM MOTOR ASSEMBLER Office Visit [facility] [address] [place] [address] Jimena Lim MD 1 [facility] [address] [place] [address] Need for vaccination (Primary Dx); Encounter for management and injection of depo-Provera; Hirsutism Social History Tobacco Use Types Packs/Day Years Used Date Smoking Tobacco: Never Smokeless Tobacco: Never Alcohol Use Standard Drinks/Week Comments No 0 (1 standard drink = 0.6 oz pur e alcohol) PHQ-2 Answer Date Recorded PHQ-2 TOTAL SCORE 3 09/07/2022 Comments No Sex and Gender Information Value Date Recorded Sex Assigned at Not on file Legal Sex Female 6:43 AM MOTOR ASSEMBLER Gender Identity . 01/07/2021 9:24 AM CDT Sexual Orientation Not on file documented as of this encounter Last Filed Vital Signs Vital Sign Reading Time Taken Comments Blood Pressure 116/75 09/07/2022 11:19 AM MOTOR ASSEMBLER Pulse 110 09/07/2022 11:19 AM MOTOR ASSEMBLER Temperature 36.4 ??C (97.6 ??F) 09/07/2022 11:[address] Respiratory Rate 20 09/07/2022 11:19 AM MOTOR ASSEMBLER Oxygen Saturation 96% 09/07/2022 11:19 AM MOTOR ASSEMBLER Inhaled Oxygen Concentration - - Weight 71.7 kg (158 lb) 09/07/2022 11:19 AM MOTOR ASSEMBLER Height 164.1 cm (5' 4.61 ) 09/07/2022 11:[address] Body Mass Index 26.61 09/07/2022 11:19 AM MOTOR ASSEMBLER Body Mass Index Percentile 88.19% 09/07/2022 11: 19 AM MOTOR ASSEMBLER Growth Chart: [facility] (Girls, 2- 20 Years) documented in this encounter Progress Notes * Alessia Gonzalez MD - 09/07/2022 11:00 AM CST Lexie Oconnell is a 17 y.o. adult here for repeat Depo Provera injection. HPI Date of first depo: 07/05/21 Last injection:06/21/22 Weeks since last injection: 11 Weight change since last appointment: +1 Reason for Depo Provera use: Heavy menstrual bleeding. Side effects: no breakthrough bleeding, mild cramping in the last few days - thinks this is a side effect of being ready to get her shot Medication interactions: No Interested in continuing? Yes [...] not bruise/bleed easily. Psychiatric/Behavioral: Negative for depression. PHQ-9 15 / VIKTORIA-7 20 EXAM BP 116/75 Pulse 110 Temp 36.4 ??C (97.6 ??F) (Temporal) Resp 20 Ht 164.1 cm (5' 4.61 ) Wt71.7 kg (158 lb) SpO2 96% BMI 26.61 kg/m?? Physical Exam Vitals reviewed. Constitutional: Appearance: [...] use. Encouraged follow up in 11-12 weeks. FOLLOW UP Follow up in 11-12 weeks or sooner with problems. Alessia Gonzalez MD Cosigned by Jimena Lim MD at 09/07/2022 12:18 PM MOTOR ASSEMBLER R ASSEMBLER R ASSEMBLER Associated attestation - Jimena Lim MD - 09/07/2022 12:18 PM MOTOR ASSEMBLER I have seen and examined the patient on 09/07/2022. I agree with the findings and plan of care as documented in the resident's/fellow's note and as discussed with the resident/fellow, Dr. Gonzalez. Patient has noticed increased hair growth including dark hair above lip and dark, coarse body hair.Has read about late-onset CAH and is concerned about this condition. With the history of irregular menses and hirsutism, it is possible. Review of hormone levels from July 2021 show borderline elevated testosterone levels and normal gonadotropins. Did not check adrenal levels. Per patient request, will send androgen evaluation - free and total testosterone, DHEAS and 17 OHP.Recommended burning supervisor draw. Depo provided, follow up in 3 months. Jimena Lim MD, MPH documented in this encounter Plan of Treatment Not on file documented as of this encounter Procedures Procedure Name Priority Date/Time Associated Diagnosis Comments 17 HYDROXYPROGESTERONE Routine 1:16 PM MOTOR ASSEMBLER Hirsutism DHEA-SULFATE Routine 12/01/2022 1:16 PM MOTOR ASSEMBLER Hirsutism TESTOSTERONE, TOTAL AND FREE, SERUM Routine 12/01/2022 1:16 PM MOTOR ASSEMBLER Hirsutism documented in this encounter Results * Testosterone, Total and Free, Serum (12/01/2022 1:16 PM MOTOR ASSEMBLER) Testosterone 22 2 - 45 ng/dL [facility] Comment: For additional information, please refer to http://education.[employer]/faq/TotalTestosteroneLCMSMS (This link is being provided for informational/ educational purposes only.) This test was developed and its analytical performance characteristics have been determined by [facility]. It has not been cleared or approved by the FDA. This assay has been validated pursuant to the CLIA regulations and is used for clinical purposes. Testosterone, free 3.5 0.1 - 6.4 pg/mL [facility] Comment: This test was developed and its analytical performance characteristics have been determined by [employer]. It has not been cleared or approved by the FDA. This assay has been validated pursuant to the CLIA regulations and is used for clinical purposes. Sex hormone binding globulin 26 17 - 124 nmol/L [facility] Blood 12/01/2022 1:16 PM MOTOR ASSEMBLER 12/01/2022 1:16 PM MOTOR ASSEMBLER Jimena Lim MD LAB BLOOD ORDERABLES Final Result [facility] [address] [place] [address] * 17-Hydroxyprogesterone (12/01/2022 1:16 PM MOTOR ASSEMBLER) 17-hydroxyproges terone 32 ng/dL [facility], Comment: Adult Female Reference Ranges for 17-Hydroxyprogesterone: ??Pre-Menopausal Mid Follicular: ??23-102 ng/dL ??Pre-Menopausal Surge: ? 67-349 ng/dL ??Pre-Menopausal Mid Luteal: ? 139-431 ng/dL ??Postmenopausal Phase: ?< or = 45 ng/dL : ?? First Trimester: ??78-457 ng/dL ?? Second Trimester: 90-357 ng/dL ?? Third Trimester: 144-578 ng/dL This test was developed and its analytical performance characteristics have been determined by [facility]. It has not been cleared or approved by FDA. This assay has been validated pursuant to the CLIA regulations and is used for clinical purposes. Blood 12/01/2022 1:16 PM MOTOR ASSEMBLER 12/01/2022 1:16 PM MOTOR ASSEMBLER Jimena Lim MD LAB BLOOD ORDERABLES Final Result [facility], [address] [place] [address] * DHEA-sulfate (12/01/2022 1:16 PM MOTOR ASSEMBLER) DHEA-S 209 44 - 286 mcg/dL [facility] Blood 12/01/2022 1:16 PM MOTOR ASSEMBLER 12/01/2022 1:16 PM MOTOR ASSEMBLER Jimena Lim MD LAB BLOOD ORDERABLES Final Result [facility] [employer] [address] [place] [address] documented in this encounter Visit Diagnoses Diagnosis Need for vaccination- Primary Need for prophylactic vaccination and inoculation against unspecified single disease Encounter for management and injection of depo-Provera Hirsutism documented in this encounter Administered Medications Inactive Administered Medications - up to 3 most recent administrations Medication Order MAR Action Action Date Dose Rate Site medroxyPROGESTERone (DEPO-PROVERA) 150 mg/mL injection 150 mg 150 mg, intramuscular, Once, On Mami 09/07/22 at 1230, For 1 dose, Javon wellIndications:Encounter for management and injection of depo-Provera Given 09/07/2022 11:51 AM MOTOR ASSEMBLER 150 mg Left Deltoid documented in this encounter Historical Medications * This list may reflect changes made after this encounter. medroxyPROGESTERon e (Depo-Provera) 150 mg/mL injection as directed added in this encounter Orders Immunization/Injection Count Last Ordered Date First Ordered Date FLU VACCINE QUAD PF 3Y+ IM - AFLURIA 1 05/2022 documented in this encounter Care Teams Kst Operator Relationship Specialty Start Date End Date Cortney Pineda, BUSINESS CONTINUITY PLANNING DIRECTOR [address] [address] PCP - General 06/09/19 Bassem Cho MD [address] [place] [address] 12/20/18 Vicky Ramachandran, OT [address] [place] [address] Occupational Therapist Occupational Therapy 04/19/21 documented as of this encounter
--- OUTSIDE RECORDS SUMMARY | 2024-10-16 03:36 | XMS_ITS | Encounter Summary ---
Author Organization [facility] Address [address] [place] [address] Phone Care Team Providers Care Safe And Vault Mechanic Name Role Phone Bassem Cho MD Unavailable Cortney Pineda NP Primary Care Provider [phone] Vicky Ramachandran OT Unavailable [phone] Reason for Referral * Medication Authorization (Routine) - Closed Specialty Diagnoses / Procedures Referred By Juana t Referred To Contact Diagnoses Encounter for management and injection of depo-Provera Jimena Lim MD [address] [address] Phone: tel: fax: Referral ID Status Reason Start Date Expiration Date Visits Re quested Visits Authorized [id number] Closed 04/04/2022 05/04/2023 1 1 Reason for Visit * Medication Authorization (Routine) - Closed Specialty Diagnoses / Procedures Referred By Juana richard Referred To Contact Diagnoses Encounter for management and injection of depo-Provera Jimena Lim MD [address] [address] Phone: tel: fax: Referral ID Status Reason Start Date Expiration Date Visits Re quested Visits Authorized [id number] Closed 04/04/2022 05/04/2023 1 1 Encounter Details Date Type Department Care Team (Late st Contact Info) Description 04/04/2022 11:00 AM CDT Office Visit [facility] [address] 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 01/07/2021 9:24 AM CDT Sexual Orientation Not on file documented as of this encounter Last Filed Vital Signs Vital Sign Reading Time Taken Comments Blood Pressure 102/62 04/04/2022 11:19 AM CDT Pulse 97 04/04/2022 11:19 AM CDT Temperature 36.3 ??C (97.3 ??F) 04/04/2022 11:19 AM C DT Respiratory Rate 20 04/04/2022 11:19 AM CDT Oxygen Saturation 99% 04/04/2022 11:19 AM CDT Inhaled Oxygen Concentration - - Weight 65 kg (143 lb 4.8 oz) 04/04/2022 11:19 AM CDT Height 164.7 cm (5' 4.84 ) 04/04/2022 11:19 AM C DT Body Mass Index 23.96 04/04/2022 11:19 AM CDT Body Mass Index Percentile 77.02% 04/04/2022 11: 19 AM CDT Growth Chart: CDC (Girls, 2- 20 Years) documented in this encounter Progress Notes * Edie Orlando MD - 04/04/2022 11:00 AM CDT Lexie Oconnell is a 16 y.o. adult here for repeat Depo Provera injection. HPI Date of first depo: 07/05/21 Last injection: 01/05/21 Weeks since last injection: 13 Weight change since last appointment: No change Reason for Depo Provera use: Heavy menstrual bleeding. Side effects: much less breakthrough bleeding. Had period last week, lasted 7 days, mild to moderate bleeding with intense cramping, some lightheadedness. Bleeding resolved now. Medication interactions: No Interested in continuing? Yes [...] bruise/bleed easily. Psychiatric/Behavioral: Negative for depression. EXAM There were no vitals taken for this visit. Physical Exam Vitals reviewed. Constitutional: Appearance: Normal appearance. Lexie Oconnell is normal weight. Cardiovascular: Rate and Rhythm: Normal rate and regular rhythm. Pulses: Normal pulses. Heart sounds: Normal heart sounds. Pulmonary: Effort: Pulmonary effort is normal. Breath sounds: Normal breath sounds. Skin: General: Skin is cool. Capillary Refill: Capillary refill takes less than 2 seconds. Neurological: General: No focal deficit present. Mental [...] in 11-12 weeks or sooner with problems. Edie Orlando MD Pediatric Resident, PG-3 Cosigned by Jimena Lim MD at 04/04/2022 1:05 PM CDT Associated attestation - Jimena Lim MD - 04/04/2022 1:05 PM CDT I have seen and examined the patient on 04/04/2022. I agree with the findings and plan of care as documented in the resident's/fellow's note and as discussed with the resident/fellow, Dr. Orlando. Jimena Lim MD, MPH documented in this [...] 150 mg 150 mg, intramuscular, Once, On Sun04/04/22 at 1215, For 1 dose, Shake wellIndications:Encounte r for management and injection of depo-Provera Given 04/04/2022 11:42 AM CDT 150 mg Right Dorsogluteal/Butto ck documented in this encounter Historical Medications * This list may reflect changes made after this encounter. divalproex ER (DEPAKOTE ER) 500 mg 24 hr tablet Take 1 tablet (500 mg total) by mouth daily venlafaxine XR (EFFEXOR-XR) 150 mg 24 hr capsule Take 1 capsule (150 mg total) by mouth daily 08/27/2023 added in this encounter Care Teams Safe And Vault Mechanic Relationship Specialty Start Date End Date Cortney Pineda NP [address] [place] [address] PCP - General 06/09/19 Bassem Cho MD [address] [address] 12/20/18 Vicky Ramachandran, OT [address] [place] [address] Occupational Therapist Occupational Therapy 04/19/21 documented as of this encounter
--- OUTSIDE RECORDS SUMMARY | 2024-10-16 03:36 | XMS_ITS | Encounter Summary ---
Author Organization [facility] Address [address] [place] [address] Care Team Providers Care Octave Board Racker Name Role Phone Bassem Cho MD Unavailable Cortney Pineda NP Primary Care Provider [phone] Vicky Ramachandran OT Unavailable [phone] Encounter Details Date Type Department Care Team (Late st Contact Info) Description 06/15/2022 [facility] Resources Initial [facility] [address] [address] [place] [address] Marino Cardoso Social History Tobacco Use Types Packs/Day Years Used Date Smoking Tobacco: Never Smokeless Tobacco: Never Alcohol Use Standard Drinks/Week Comments No 0 (1 standard drink = 0.6 oz pur e alcohol) Comments No Sex and Gender Information Value Date Recorded Sex Assigned at Not on file 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 01/07/2021 9:24 AM CDT Sexual Orientation Not on file documented as of this encounter Plan of Treatment Not on file documented as of this encounter Visit Diagnoses Not on filedocumented in this encounter Care Teams Octave Board Racker Relationship Specialty Start Date End Date Cortney Pineda NP [address] [place] [address] PCP - General 06/09/19 Bassem Cho MD [address] [place] [address] 12/20/18 Vicky Ramachandran, OT [address] [place] [address] Occupational Therapist Occupational Therapy 04/19/21 documented as of this encounter
--- OUTSIDE RECORDS SUMMARY | 2024-10-16 03:36 | XMS_ITS | Encounter Summary ---
Author Organization [facility] Healthcare Address [address] [place] [address] Care Team Providers Care Certified [employer] Administrator Name Role Phone Bassem Cho MD Unavailable Cortney Pineda NP Primary Care Provider [phone] Vicky Ramachandran OT Unavailable Encounter Details Date Type Department Care Team (Late st Contact Info) Description 05/26/2022 1:40 [place] [address] Encounter for medication monitoring Social History Tobacco Use Types Packs/Day Years Used Date Smoking Tobacco: Never Smokeless Tobacco: Never Alcohol Use Standard Drinks/Week Comments No 0 (1 standard drink = 0.6 oz pur e alcohol) Comments No Sex and Gender Information Value Date Recorded Sex Assigned at Not on file Legal Sex Female 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 01/07/2021 9:24 AM CDT Sexual Orientation Not on file documented as of this encounter Plan of Treatment Not on file documented as of this encounter Procedures Procedure Name Priority Date/Time Associated Diagnosis Comments DIFFERENTIAL AUTO Routine 05/26/2022 1:4 4 PM CDT Encounter for medication monitoring CBC WITH AUTO DIFFERENTIAL Routine 05/26/2022 1:44 PM CDT Encounter for medication monitoring TSH Routine 05/26/2022 1:44 PM CDT Encounter for medication monitoring HEMOGLOBIN A1C Routine 05/26/2022 1:44 PM CDT Encounter for medication monitoring LIPID PANEL Routine 05/26/2022 1:44 PM CDT Encounter for medication monitoring COMPREHENSIVE METABOLIC PANEL Routine 05/26/2022 1:44 PM CDT Encounter for medication monitoring documented in this encounter Results * Differential, auto (05/26/2022 1:44 PM CDT) Neutrophil abs 2.7 1.7 - 6.5 K/cumm [facility] Imm gran abs 0.0 0.0 - 0.1 K/cumm [facility] Lymphocyte abs 2.5 0.8 - 3.3 K/cumm [facility] Monocyte abs 0.2 0.2 - 0.8 K/cumm [facility] Eosinophil abs 0.0 0.0 - 0.5 K/cumm [facility] Basophil abs 0.0 0.0 - 0.1 K/cumm [facility] Neutrophil pct 48.5 % [facility] Comment: Interpretive Data Percent cell count reference ranges are not reported, since discordance with absolute values may lead to misinterpretation of CBC data. Current Interpretive Data was last revised on 2018. Imm gran pct 0.2 % [facility] Comment: Interpretive Data Percent cell count reference ranges are not reported, since discordance with absolute values may lead to misinterpretation of CBC data. Current Interpretive Data was last revised on 2018. Lymphocyte pct 46.2 % [facility] Comment: Interpretive Data Percent cell count reference ranges are not reported, since discordance with absolute values may lead to misinterpretation of CBC data. Current Interpretive Data was last revised on 2018. Monocyte pct 4.2 % [facility] Comment: Interpretive Data Percent cell count reference ranges are not reported, since discordance with absolute values may lead to misinterpretation of CBC data. Current Interpretive Data was last revised on 2018. Eosinophil pct 0.7 % [facility] Comment: Interpretive Data Percent cell count reference ranges are not reported, since discordance with absolute values may lead to misinterpretation of CBC data. Current Interpretive Data was last revised on 2018. Basophil pct 0.2 % [facility] Comment: Interpretive Data Percent cell count reference ranges are not reported, since discordance with absolute values may lead to misinterpretation of CBC data. Current Interpretive Data was last revised on 2018. Blood 05/26/2022 1:44 PM CDT 05/26/2022 2:18 PM CDT us Silvio Tam MD LAB BLOOD ORDERABLES Final Resul t Performing Organization Address City/[facility]/ZIP Co de Phone Number [facility] Department [place] [address] * CBC with auto differential (05/26/2022 1:44 PM CDT) WBC 5.5 3.8 - 9.9 K/cumm [facility] Hgb 13.1 11.9 - 15.5 g/dL [facility] Hct 38.8 35.6 - 45.5 % [facility] Plt 299 150 - 400 K/cumm [facility] MPV 9.6 9.1 - 12.3 fL [facility] RBC 4.55 3.90 - 5.20 M/cumm [facility] MCV 85.3 81.3 - 96.4 fL [facility] MCH 28.8 27.1 - 33.3 pg [facility] MCHC 33.8 32.3 - 35.7 g/dL [facility] RDW CV 13.7 11.1 - 14.9 % [facility] RDW SD 42.7 35.7 - 48.1 fL [facility] NRBC abs 0.00 0.00 - 0.01 K/cumm [facility] Blood 05/26/2022 1:44 PM CDT 05/26/2022 2:18 PM CDT Silvio Tam MD LAB BLOOD ORDERABLES Final Resul t [facility] Department [place] [address] * (ABNORMAL) Comprehensive metabolic panel (05/26/2022 1:44 PM CDT) Sodium 146(H) 135 - 145 mmol/L [facility] Potassium, pl 4.4 3.3 - 4.9 mmol/L [facility] Chloride 113 100 - 114 mmol/L [facility] CO2 22 20 - 30 mmol/L [facility] Anion gap 12 2 - 15 mmol/L [facility] BUN 12 9 - 18 mg/dL [facility] Creatinine 0.49 0.40 - 1.00 mg/dL [facility] Glucose 88 70 - 199 mg/dL [facility] Comment: Interpretive Data Fasting glucose >/= [...] interpretive data was last revised 2017. Calcium 9.5 8.5 - 10.3 mg/dL [facility] Bilirubin, total 0.2 0.1 - 1.2 mg/dL [facility] Protein, pl 7.3 6.5 - 8.5 g/dL [facility] Albumin 4.8 3.2 - 5.0 g/dL [facility] Alk phos 48(L) 70 - 260 Units/L [facility] ALT 8 7 - 45 Units/L [facility] AST 13 10 - 50 Units/L [facility] Blood 05/26/2022 1:44 PM CDT 05/26/2022 2:19 PM CDT us Silvio Tam MD LAB BLOOD ORDERABLES Final Resul t [facility] [place] [address] * Hemoglobin A1c (05/26/2022 1:44 PM CDT) Hgb A1C 4.9 4.0 - 5.6 % [facility] Blood 05/26/2022 1:44 PM CDT 05/26/2022 2:19 PM CDT Silvio Tam MD LAB BLOOD ORDERABLES Final Resul t Performing Organization Address City/[facility] [place] [address] * TSH (05/26/2022 1:44 PM CDT) Thyroid Stimulating Hormone 0.64 0.30 - 4.20 mcIUnit/mL [facility] Blood 05/26/2022 1:44 PM CDT 05/26/2022 2:19 PM CDT Silvio Tam MD LAB BLOOD ORDERABLES Final Resul t Performing Organization Address [facility] [place] [address] * (ABNORMAL) Lipid panel (05/26/2022 1:44 PM CDT) Cholesterol 170 <=199 mg/dL [facility] Comment: Interpretive Data Ages < or = 19 years ??Acceptable: ? <170 mg/dL ??Borderline high: ??170-199 mg/dL ??High: ? >or= 200 mg/dL Ages > or = 20 years ??Desirable: ?<200 mg/dL ??Borderline high: ??200-239 mg/dL ??High: ? >or= 240 mg/dL Literature References: 1. Expert Panel on Integrated Guidelines for Cardiovascular Health and Risk Reduction in Children and Adolescents. Pediatrics 2011;128:S213 2. NCEP Expert Panel. Circulation 2004;110:227 Current Interpretive Data was last revised on 2018. Triglycerides 70 <=129 mg/dL [facility] Comment: Interpretive Data Ages < or = 9 years ??Acceptable: ? <75 mg/dL ??Borderline high: ??75-99 mg/dL ??High: ? >or= 100 mg/dL Ages 10 to 20 years ??Acceptable: ? <90 mg/dL ??Borderline high: ??90-129 mg/dL ??High: ? >or= 130 mg/dL Ages > or = 20 years ??Desirable: ?<150 mg/dL ??Borderline high: ??150-199 mg/dL ??High: ? 200-499 mg/dL ?Very high: ?? >or= 499 mg/dL Literature References: 1. Expert Panel on Integrated Guidelines for Cardiovascular Health and Risk Reduction in Children and Adolescents. Pediatrics 2011;128:S213 2. NCEP Expert Panel. Circulation 2004;110:227 Current Interpretive Data was last revised on 2018. HDL 40(L) >=45 mg/dL [facility] Comment: Interpretive Data Ages < or = 19 years ??Acceptable: ? >45 mg/dL ??Borderline low: ?? 40-45 mg/dL ??Low: ? <40 mg/dL Ages > or = 20 years ??Desirable: ?>or= 60 mg/dL ??Low: ? <40 mg/dL Literature References: 1. Expert Panel on Integrated Guidelines for Cardiovascular Health and Risk Reduction in Children and Adolescents. Pediatrics 2011;128:S213 2. NCEP Expert Panel. Circulation 2004;110:227 Current Interpretive Data was last revised on 2018. LDL, calculated 116 <=129 mg/dL [facility] Comment: Interpretive Data Ages < or = 19 years ??Acceptable: ? <110 mg/dL ??Borderline high: ??110-129 mg/dL ??High: ?>or= 130 mg/dL Ages > or = 20 years ??Optimal: ? <100 mg/dL ??Near optimal: ?100-129 mg/dL ??Borderline high: ?? 130-159 mg/dL ??High: ?>160 mg/dL Literature References: 1. Expert Panel on Integrated Guidelines for Cardiovascular Health and Risk Reduction in Children and Adolescents. Pediatrics 2011;128:S213 2. NCEP Expert Panel. Circulation 2004;110:227 Current Interpretive Data was last revised on 2018. Non-HDL Cholesterol 130 <=144 mg/dL [facility] Comment: Interpretive Data Ages < or = 19 years ??Acceptable: ?<120 mg/dL ??Borderline high: ??120-144 mg/dL ??High: ?>145 mg/dL Ages > or = 20 years ??When triglycerides are >200 mg/dL, Non-HDL cholesterol is a secondary target of ? therapy with treatment goals that are 30 mg/dL greater than the LDL cholesterol target. ? Literature References: 1. Expert Panel on Integrated Guidelines for Cardiovascular Health and Risk Reduction in Children and Adolescents. Pediatrics 2011;128:S213 2. NCEP Expert Panel. Circulation 2004;110:227 Current Interpretive Data was last revised on 2018. Chol/HDL ratio 4 [facility] Blood 05/26/2022 1:44 PM CDT 05/26/2022 2:19 PM CDT us Silvio Tam MD LAB BLOOD ORDERABLES Final Resul t [facility] Department [place] [address] documented in this encounter Visit Diagnoses Diagnosis Encounter for medication monitoring Encounter for therapeutic drug monitoring documented in this encounter Care Teams Certified [employer] Administrator Relationship Specialty Start Date End Date Cortney Pineda NP [address] [place] [address] PCP - General 06/09/19 Bassem Cho MD [address] [address] 12/20/18 Vicky Ramachandran, OT [address] [place] [address] Occupational Therapist Occupational Therapy 04/19/21 documented as of this encounter
--- OUTSIDE RECORDS SUMMARY | 2024-10-16 03:36 | XMS_ITS | Encounter Summary ---
Author Organization [facility] Address [address] [place] [address] Phone Care Team Providers Care Hospitalist Medical Director Name Role Phone Bassem Cho MD Unavailable [phone] Cortney Pineda NP Primary Care Provider [phone] Vicky Ramachandran OT Unavailable [phone] Reason for Visit * Reason Comments OT Treatment * Consultation (Routine) - Closed Specialty Diagnoses / Procedures Referred By Contact Referred To Contact Pediatric Occupational Therapy Diagnoses Tic disorder Negrita Pride MD PhD [id number] [place] [address] Phone: tel: fax: [facility] (All Locations) Referral ID Status Reason Start Date Expiration Date V isits Requested Visits Authorized [id number] Closed Specialty Services Required 11/29/2020 12/29/2021 24 24 Encounter Details Date Type Department Care Team (Late st Contact Info) Description 11/08/2021 1:00 PM ROD HANGER Therapy [facility] Occupational Therapy [address] [place] [address] Vicky Ramachandran, OT [address] [place] [address] Functional neurological symptom disorder with [...] on file Legal Sex Female 6:43 AM ROD HANGER Gender Identity . 01/07/2021 9:24 AM CDT Sexual Orientation Not on file documented as of this encounter Progress Notes * Vicky Ramachandran, OT - 11/08/2021 1:00 PM CST OT Daily Treatment Note Lexie Cedilloler 2005 Subjective: Ct stated school has not [...] and neurological aspects involved in FND. ?? Food Log: Ct stated she tracked using food log but forgot log at home ?? Eating: ?? School days: Ct stated she is eating breakfast (sausage biscuits, apple juice, chocolate milk), lunch (sausage and pepperoni pizza, apple juice, chocolate milk), and sometime dinner and sometime snack. ?? Weekends: Ct stated she occasionally eats dinner and most of day will eat snacks (i.e.. Apple chips most of the time, pretzels sometimes) ?? Ct id she avoids meals with family as she is overwhelmed by environment. ?? Water: Ct stated she is drinking 2-3 cups of 8 oz of water a day. Prior to OT having ct track intake, ct was drinking less water (1-2 cups a day water) and other beverages (milk, apple juice). ?? Suggestibility: not addressed this session. ?? Ct stated fair verbal understanding of [...] resistant headphone ?? Music ?? Eating ?? Mod verbal and visual ed on need for various nutritional intakes for tasks. ?? OTR used walking as example. Ct at start of activity analysis ed task to use low energy as she only id 1 body part was involved. Max verbal prompts for ct to id of all parts of body needed to do task. Ct id after ed that task required more energy than she thought. ?? Ct took home visual to help recall ed. ?? Mod verbal ed on number of cups of water needed for 1 day (eight 8 oz cups). ?? School Accommodations: ?? Ct stated she emailed a couple of her teachers, last week and have not heard back. ?? Min verbal ed to talk to her special armed security guard to help access teacher notes from other teachers. ?? Ct id she is using noise resistant headphones in school and it is sometimes helping. ?? [facility] of new accommodations. ?? Accommodations id are: ?? Allow use of sunglasses to manage sensitivity to overhead lighting to maintain engagement in school ?? Ct stated parents have money to buy sunglasses and plans to purchase one. ?? Allow use of fidgets to manage FND and anxiety symptoms to maintain engagement in school ?? CT is using them couple of times a week. 04/09 helpfulness. ?? Ct and mother stated fair verbal understanding of ed. HEP: ?? Id accommodations that may still be needed ?? Advocate to special armed security guard to ask for teacher notes ?? Trial [...] to take of medication. Current status: ?? Ct stated she has a pill box that has sections for AM, afternoon, and night med's. She ind filling pill box. Pill box is kept on microwave. ?? AM: ct always forget to take her med's ?? PM: Ct is not home when afternoon are due. Ct not sure how to manage this. ?? Evening: taking consistently. ?? Mod verbal prompts to id plan. ?? Plan was to move toothbrush and paste to be next to or on top of pill box to help take med's in AM. ?? Add visual to basket that holds PJ pants, as this is the 1st task after school. change into PJ's, to help recall PM med's. HEP: Work on increasing compliance with AM [...] nutritional intake on bodies energy levels, and id and implementing strategies for medication management. Good follow through of HEP per ct report. Food log was not assessed 2/2 forgetting [address] home. Ct's report indicates low food and water intake. Skilled ed on amt of water for day and on reason body needs for managing FND symptoms. Ct is continuing to work on establishing trialing school strategies. OTR idslow progress 2/2 community have low resources and family financial situation requiring t Ct was very interested in ed of her FND medical condition. Ct stated understanding of how food intake can be a reason symptoms are occurring. Food log was issued to help increase awareness of daily intake. Plan for next session, to assess progress with establishing strategies and to continue ed on FND management, Ct will benefit from continued OT services at 1x/wk to improve tic management to facilitate imp roved success within home and community activities. Goals [...] in 3mths. Id - auditory trigger on 10/01 sessions - food low intake on 10/01 sessions. Progressing (11/08/2020) 3. Ct will maintain a daily log of eating and drinking and its effect on her medical condition, 5/7days a week for 4 wk's to id triggers of Functional Neurological Disorder (FND) within 2 mths. Met on 1/1 wk's Progressing (11/08/2020) 4. Ct will id 1-3 triggers for [...] competing responses within 3 mths. New (10/10/2020) Gallery [employer] Museum Attendant Goals: Goals Status 1. Ct will walk up or down stairs with management of FND LE weakness symptoms, 70% of the time on 3/4 wk's within 6 mths. New (10/10/2020) 2. Ct will walk in community setting (i.e. store, temple peer groups, school) with management of FND [...] and Family Start time: 1306 End time: 1400 HANGER documented in this encounter Plan of Treatment Not on file documented as of this encounter Visit Diagnoses Diagnosis Functional neurological symptom disorder with abnormal movement- Primary Anxiety Anxiety state, unspecified Bipolar 1 disorder, Anxiety documented in this encounter Care Teams Hospitalist Medical Director Relationship Specialty Start Date End Date Cortney Pineda FIELD INVESTIGATOR [address] [place] [address] PCP - General 06/09/19 Bassem Cho MD [address] [place] [address] 12/20/18 Vicky Ramachandran OT [address] [place] [address] Occupational Therapist Occupational Therapy 04/19/21 documented as of this encounter
--- OUTSIDE RECORDS SUMMARY | 2024-10-16 03:36 | XMS_ITS | Encounter Summary ---
Author Organization [facility] Address [address] [place] [address] Phone Care Team Providers Care Custom Ski Maker Name Role Phone Bassem Cho MD Unavailable [phone] Cortney Pineda NP Primary Care Provider [phone] Vicky Ramachandran OT Unavailable [phone] Encounter Details Date Type Department Care Team (Late st Contact Info) Description 06/15/2022 10:30 AM CDT Telemedicine [facility] Pediatric Neurology [address] [place] [id number] Negrita Pride MD PhD [address] [place] [address] Tourettes syndrome (Primary Dx); Functional neurological symptom disorder with mixed symptoms; Sensory processing difficulty; Anxiety Social History Tobacco Use Types Packs/Day Years Used Date Smoking Tobacco: Never Smokeless Tobacco: Never Alcohol Use Standard Drinks/Week Comments No 0 (1 standard drink = 0.6 oz pur e alcohol) Comments No Sex and Gender Information Value Date Recorded Sex Assigned at Not on file 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 01/07/2021 9:24 AM CDT Sexual Orientation Not on file documented as of this encounter Ordered Prescriptions Prescription Sig Dispense Quantity Refills Last Filled Start Date End Date ARIPiprazole (ABILIFY) 2 mg tablet Take 1 tablet (2 mg total) by mouth daily 30 tablet 5 06/15/2022 3 cloNIDine ER (KAPVAY) 0.1 mg tablet extended release 12 hr Take 2 tablets (0.2 mg total) by mouth 2 (two) times a day 120 tablet 5 06/15/2022 3 documented in this encounter Progress Notes * Negrita Pride MD PhD - 06/15/2022 10:30 AM CDT Images from the original note were not included. [facility] Patient Name: LEXIE NUR Medical Record Number (MRN): [id number] Date of (): 2005 Encounter Date: 06/15/2022 The patient was last seen in my clinic on Oct 19 and portions of today's note were copied from my prior note and reviewed, confirmed, and edited as appropriate. This was a telemedicine visit with Lexie Nur and Mom which took place via Real-time video connection ([place], Zoom or similar). During the visit, I was located at home and the patientwas located at home in the [facility]. The patient visit started at 10:32 and ended at 10:59. Total time on day of visit: 45 minutes The parent: has been informed that the visit may not be secure and acknowledged the information. The option of participating in a telephone or video visit during the COVID-19 public health emergency was explained to them. After being given an opportunity to ask questions about and discuss this typeof visit, they verbally consented to proceeding with the telephone/video visit and understand that this service replaces an office visit. History of Present Illness Functional Neurologic Symptoms/Tics: [...] symptoms previously with modified CBIT. Interval History: Had some whole body twitching over the summer thought to be functional which is better now. Tourette's: She does have a history of long standing tics that previously did not bother her. Over the past few years they have been more bothersome. Recent increase in vocal tics: worms . Also arm flinging, facial twitches, sniffing. Started Abilify 2 weeks ago with unclear benefit as she has been home with [place]. Depression/Anxiety: started 2017 following a very traumatic year with many deaths in the family. She had 4 hospitalizations over [id number]. Mood has been worse with mood swings and difficult to control emotions, previously relatively controlled on Depakote, Clonazepam, Effexor. She was previously followed by a counselor and psychiatrist. Now diagnosed with bipolar II. Needs new psychiatrist Migraines: previously improved only having occasional but having more headaches with COVID, at the worst part, she was having 3-4 per week. Sensory Issues: Social: She feels that she struggles to make friends and picker feeder on social cues. She feels that there [...] support structure. Past Medical History: Diagnosis Date Bipolar 1 [...] by mouth daily, Disp: 30 tablet, Rfl: 2 clonazePAM (KlonoPIN) 1 mg tablet, Take 1 [...] Disp: 120 tablet, Rfl: 5 divalproex ER (Depakote ER) 500 mg 24 hr tablet, Take 500 mg by mouth daily, Disp: , Rfl: ergocalciferol (Vitamin D2) 50,000 unit capsule, Take 1 capsule (50,000 Units total) by mouth once a week (Patient not taking: Reported on 04/04/2022), Disp: 4 capsule, Rfl: 2 ferrous sulfate 325 mg (65 mg of elemental iron) tablet, Take 1 tablet (325 mg total) by mouth daily with breakfast (Patient not taking: Reported on 04/04/2022), Disp: 30 tablet, Rfl: 3 ibuprofen (ADVIL,MOTRIN) suspension 100 mg/5 mL, Take by mouth every 4 (four) hours as needed for pain, Disp: , Rfl: venlafaxine XR (EFFEXOR-XR) 150 [...] negative. Physical Exam GENERAL EXAM Vital signs: There were no vitals taken for this visit. Well-appearing. No dysmorphic features. HEENT: normal Resp: breathing room air without distress NEUROLOGIC EXAM Mental status: Mood is much worse today than previous visits. Speech is somewhat immature. Poor eyecontact. Followed all exam instructions without difficulty. Cranial nerves: Eye movements full without nystagmus; Normal face expressiveness. No dysarthria, Motor: deferred, previously Normal muscle bulk and tone. Full strength in all muscle groups. Abnormal movements: No tics or abnormal movements or sounds during exam Reflexes: deferred, previously Deep tendon reflexes: 2+ in arms and legs bilaterally. Plantar reflex flexor bilaterally. Coordination: No dysmetria on [id number] bilaterally Gait: deferred, previously Narrow base, steady. Normal tandem gait. Assessment/Plan Encounter Diagnoses Name Primary? Tourettes syndrome Yes Functional neurological symptom disorder with mixed symptoms Sensory processing difficulty Anxiety Lexie is a 16 yo who [...] we added a small dose of Abilify, given that she has COVID, I am not recommending any changes at this time, we did talk about her using her resources in IEP to prevent tic attacks when she returns to school. 1. Continue Clonidine ER, [id number] 2. Return to OT 3. Refer to Psychiatry and psychology for ongoing management 4. RTC 4 months Thank you for allowing me to participate in the care of your patient. If you have any questions, feel free to contact me at [phone]. I have provided the family with contact and emergency contactinformation. Please feel free to contact me if you have any additional questions. Sincerely, Negrita Pride MD PhD Complex Care Nurse Practitioner of Neurology Division of Pediatric Neurology Cerebral Palsy and Movement Disorders Section Director, Pediatric Deep Brain Stimulation Program documented in this encounter Miscellaneous Notes * Addendum Note - Natacha Marion RMA - 06/15/2022 10:30 AM CDTAddended by: NATACHA MARION on: 06/15/2022 01:17 PM Modules accepted: Orders documented in this encounter Plan of Treatment Not on file documented as of this encounter Visit Diagnoses Diagnosis Tourettes syndrome- Primary Tourette's disorder Functional neurological symptom disorder with mixed symptoms Sensory processing difficulty Anxiety Anxiety state, unspecified documented in this encounter Discontinued Medications Medication Sig Discontinue Reason Start Date End Da te ferrous sulfate 325 mg (65 mg of elemental iron) tabletIndications:Iron Deficiency Anemia Take 1 tablet (325 mg total) by mouth daily with breakfast 07/06/2021 06/15/2022 cloNIDine ER (KAPVAY) 0.1 mg tablet extended release 12 hr Take 2 tablets (0.2 mg total) by mouth 2 (two) times a day Reorder 05/25/2022 06/15/2022 ARIPiprazole (ABILIFY) 2 mg tablet Take 1 tablet (2 mg total) by mouth daily Reorder 05/29/2022 06/15/2022 documented as of this encounter Care Teams Custom Ski Maker Relationship Specialty Start Date End Date Cortney Pineda NP [address] [place] [address] PCP - General 06/09/19 Bassem Cho MD [address] [place] [address] 12/20/18 Vicky Ramachandran OT [address] [place] [address] Occupational Therapist Occupational Therapy 04/19/21 documented as of this encounter
--- OUTSIDE RECORDS SUMMARY | 2024-10-16 03:36 | XMS_ITS | Encounter Summary ---
Author Organization [facility] Address [address] [place] [address] Phone Care Team Providers Care Class A Lineman Name Role Phone Bassem Cho MD Unavailable [phone] Cortney Pineda NP Primary Care Provider Vicky Ramachandran OT Unavailable [phone] Encounter Details Date Type Department Care Team (Late st Contact Info) Description 10/19/2021 Telephone [facility] 2nd [place] [address] [place] [address] Joi Chris Social History Tobacco Use Types Packs/Day Years Used Date Smoking Tobacco: Never Smokeless Tobacco: Never Alcohol Use Standard Drinks/Week Comments No 0 (1 standard drink = 0.6 oz pur e alcohol) Comments No Sex and Gender Information Value Date Recorded Sex Assigned at Not on file Legal Sex Female 6:43 AM DROSSER Gender Identity . 01/07/2021 9:24 AM CDT Sexual Orientation Not on file documented as of this encounter Miscellaneous Notes * Telephone Encounter - Joi Chris - 10/19/2021 11:27 AM CST L/m for mom to give me a call back, if patient would still like the breast reduction if yes if patient can upload a pain journal on my chart SER documented in this encounter Plan of Treatment Not on file documented as of this encounter Visit Diagnoses Not on filedocumented in this encounter Care Teams Class A Lineman Relationship Specialty Start Date End Date Cortney Pineda FUNERAL HOME MAKEUP ARTIST [address] [place] [address] PCP - General 06/09/19 Bassem Cho MD [address] [facility] [address] [place] [id number] 12/20/18 Vicky Ramachandran, DAVID [address] [place] [address] Occupational Therapist Occupational Therapy 04/19/21 documented as of this encounter
--- OUTSIDE RECORDS SUMMARY | 2024-10-16 03:36 | XMS_ITS | Encounter Summary ---
Author Organization [facility] Address [address] [place] [address] Phone Care Team Providers Care Stamp Maker Name Role Phone Bassem Cho MD Unavailable [phone] Cortney Pineda NP Primary Care Provider [phone] Vicky Ramachandran OT Unavailable [phone] Reason for Visit * Reason Onset Date Comments lab draw reminder call 10/18/2022 Encounter Details Date Type Department Care Team (Late st Contact Info) Description 10/18/2022 Telephone [facility] Adolescent [facility] 2nd [place] [address] [place] [address] Malathi Will RN [address] [place] [address] lab draw reminder call Social History Tobacco Use Types Packs/Day Years Used Date Smoking Tobacco: Never Smokeless Tobacco: Never Alcohol Use Standard Drinks/Week Comments No 0 (1 standard drink = 0.6 oz pur e alcohol) PHQ-2 Answer Date Recorded PHQ-2 TOTAL SCORE 3 09/07/2022 Comments No Sex and Gender Information Value Date Recorded Sex Assigned at Not on file Legal Sex Female 6:43 AM BRADDISHER Gender Identity . 01/07/2021 9:24 AM CDT Sexual Orientation Not on file documented as of this encounter Miscellaneous Notes * Telephone Encounter - Malathi Will RN - 10/25/2022 12:32 PM BRADDISHER RN left patient's mother 2nd voicemail message asking patient to return call to discuss lab orders. DISHER DISHER * Telephone Encounter - Malathi Will RN - 10/18/2022 1:43 PM BRADDISHER RN left patient's mother voicemail message asking patient to return RN call. Patient is 17 and we do not have contact number for patient. Labs were ordered at [facility] and have not yet been drawn. Reminder call. Recommend chimney builder lab draw. DISHER documented in this encounter Plan of Treatment Not on file documented as of this encounter Visit Diagnoses Not on filedocumented in this encounter Care Teams Stamp Maker Relationship Specialty Start Date End Date Cortney Pineda NP [address] [facility] [place] [address] PCP - General 06/09/19 Bassem Cho MD [address] [facility] [address] [address] [place] [address] 12/20/18 Vicky Ramachandran OT [address] [place] [id number] Occupational Therapist Occupational Therapy 04/19/21 documented as of this encounter
--- OUTSIDE RECORDS SUMMARY | 2024-10-16 03:36 | XMS_ITS | Encounter Summary ---
Author Organization [facility] Address [address] [place] [address] Phone Care Team Providers Care Diesel Locomotive Firer Name Role Phone Bassem Cho MD Unavailable Cortney Pineda NP Primary Care Provider [phone] Vicky Ramachandran OT Unavailable [phone] Encounter Details Date Type Department Care Team (Late st Contact Info) Description 05/24/2022 Documentation [facility] Occupational Therapy [address] [place] [address] Vicky Ramachandran, OT [address] [place], [place] [id number] Social History Tobacco Use Types Packs/Day Years Used Date Smoking Tobacco: Never Smokeless Tobacco: Never Alcohol Use Standard Drinks/Week Comments No 0 (1 standard drink = 0.6 oz pur e alcohol) Comments No Sex and Gender Information Value Date Recorded Sex Assigned at Not on file Legal Sex Female 6:43 AM SOYBEAN SPECIALTIES COOK Gender Identity . 01/07/2021 9:24 AM CDT Sexual Orientation Not on file documented as of this encounter Progress Notes * Vicky Ramachandran, OT - 05/24/2022 10:02 AM CDT OT Plan of Care Update Ct's mother contacted OTR stating ct will be returning to OT within the next couple of months. Mother stated ct has been working on her eating issues with a specialist and is doing better. She statedct is having an increase in tic management in the last couple of week's. Mother was ed that ct willneed new OT order, as last order . Mother was also ed that next visit with need to be a re-evaluation 2/2 extended time between sessions. OTR at this time will leave OT POC open 2/2 plan to return to OT. documented in this encounter Plan of Treatment Not on file documented as of this encounter Visit Diagnoses Not on filedocumented in this encounter Care Teams Diesel Locomotive Firer Relationship Specialty Start Date End Date Cortney Pineda MANAGER OF SOFTWARE [address] [place] [address] PCP - General 06/09/19 Bassem Cho MD [address] [facility] [address] [place] [address] 12/20/18 Vicky Ramachandran OT [address] [place] [address] Occupational Therapist Occupational Therapy 04/19/21 documented as of this encounter
--- OUTSIDE RECORDS SUMMARY | 2024-10-16 03:36 | XMS_ITS | Encounter Summary ---
Author Organization [facility] Address [address] [place] [address] Care Team Providers Care Benefits Counselor Name Role Phone Bassem Cho MD Unavailable Cortney Pineda NP Primary Care Provider [phone] Vicky Ramachandran OT Unavailable [phone] Encounter Details Date Type Department Care Team (Late st Contact Info) Description 06/19/2022 [facility] Behavioral [facility] Community Resources Subsequent [facility] [address] [address] [place] [address] Marino Cardoso Social History Tobacco Use Types Packs/Day Years Used Date Smoking Tobacco: Never Smokeless Tobacco: Never Alcohol Use Standard Drinks/Week Comments No 0 (1 standard drink = 0.6 oz pur e alcohol) Comments No Sex and Gender Information Value Date Recorded Sex Assigned at Not on file Legal Sex Female 6:43 AM PROCESS CONTROLS 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 01/07/2021 9:24 AM CDT Sexual Orientation Not on file documented as of this encounter Plan of Treatment Not on file documented as of this encounter Visit Diagnoses Not on filedocumented in this encounter Care Teams Benefits Counselor Relationship Specialty Start Date End Date Cortney Pineda NP [address] [place] [address] PCP - General 06/09/19 Bassem Cho MD [address] [place] [address] 12/20/18 Vicky Ramachandran, OT [address] [place] [address] Occupational Therapist Occupational Therapy 04/19/21 documented as of this encounter
--- OUTSIDE RECORDS SUMMARY | 2024-10-16 03:36 | XMS_ITS | Encounter Summary ---
Author Organization [facility] Address [address] [place] [address] Phone Care Team Providers Care Orthopedic Physician Assistant Name Role Phone Bassem Cho MD Unavailable [phone] Cortney Pineda NP Primary Care Provider [phone] Reason for Visit * Reason Onset Date Comments OT Discharge 10/23/2022 Encounter Details Date Type Department Care Team (Late st Contact Info) Description 10/23/2022 Documentation [facility] Occupational Therapy [address] [place] [address] Vicky Ramachandran, OT [address] [place], [place] [id number] OT Discharge Social History Tobacco Use Types Packs/Day Years Used Date Smoking Tobacco: Never Smokeless Tobacco: Never Alcohol Use Standard Drinks/Week Comments No 0 (1 standard drink = 0.6 oz pur e alcohol) PHQ-2 Answer Date Recorded PHQ-2 TOTAL SCORE 3 09/07/2022 Comments No Sex and Gender Information Value Date Recorded Sex Assigned at Not on file Legal Sex Female 6:43 AM MOTORCYCLE RIDING INSTRUCTOR Gender Identity . 01/07/2021 9:24 AM CDT Sexual Orientation Not on file documented as of this encounter Progress Notes * Vicky Ramachandran OT - 10/23/2022 12:23 PM CST OT Discharge Note Lexie Oconnell 2005 Referring provider defined for this encounter: LUPILLO JUAREZ Date of last MD visit: 06/15/2022 ICD-9-CM ICD-10-CM 1. 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 Anxiety 300.00 F41.9 3. Bipolar 1 disorder, Anxiety 296.7 F31.9 4. Tic disorder 307.20 F95.9 OT Start Date: 10/10/2021 Last OT Visit:12/13/2021 Cancellations: 0 No Shows: 0 Number of Visits: 7 OT Daily Treatment Note Lexie Oconnell 2005 Subjective: Ct stated reason she is not eating on weekends, as ct has a lot of fears of taken food away from others who need it and gaining weight. Ct stated doing better at school as she is monitored at school and feels other would notice she does not eat. Ct stated mother is going to talk to the MD Pain: /10 back and ribs Objective: Client was seen in clinic setting. No change in medical status stated. Client's preferred pronouns: Ct prefers they/them and it/its pronouns, when parents are around she/her. Client's preferred name: Lexie Functional Neurological Symptoms LE weakness R UE locking elb, wrist,and finger flex; occasionally BUE Jaw locking R LE > LLE locking hip, knee, and ankle ext Functional Neurological Trigger id by ct Auditory stim (too many people talking) Tactile stim Visual stim Eating habits low Functional Neurological Strategies that help manage symptoms id by ct Leaving the task or environment Quieting environment Service dog Noise resistant headphone Music Functional Neurological Disorder Awareness Problem: IE indicated that ct has sensory triggers of low tolerance to mod to high stim environments, unexpected tactile, auditory, or visual stim, and low intake of food. Current status: Symptom update: LE weakness: School: occurring couple times a week. Store: 1x/wk occurring frequently. Trigger (store): distressed dog was leaving and how react to nails being cut. R UE locking elb, wrist,and finger flex: multiple times a day Trigger: id may be 2/2 low food intake. Jaw lockin-3 x/wk for brief time frames Trigger: not sure R LE > LLE locking hip, knee, and ankle ext: weaned Trigger Awareness: Mod to max verbal ed to mother and ct regarding eating and stress triggers and how psychology intervention is needed more at this time. Mother agreed and stated she is working on setting ct up with psych supports for both issues. OTR advocated for more intense intervention for eating issues as ct issues seem very serious. Ct when trying to tell OTR about her meal last night described the meal she had on Sun verses Mon. Mother caught error. Mod verbal ed on how cognitive decline is often to decrease nutrition. Food Log: Tracker from 11/22 to 11/27/21. Eat 3 meals on 1/6 days, 2 meals on 1/6 days, and 1 meals on 4/6 days. Small snacks in PM on 3/[address] days[address] meals include: Protein: 3 days with 1-2 servings, 1 days with 3-4 servings, 1 days with 5-6 servings, and 1 days with no protein. Carb: 4 days with 1-2 servings, and 1 days with 3-4 servings, 0 days with 5-6 servings, and 1 days with no carb. Fruit: 2 days with 1/2 to 1 servings, 1 day with 1.5 to 2 servings, 0 days with 5-6 servings, and 3days with no fruit. Vegetables: 3 days with 1/2 to 1 servings, 2 day with 2 servings, 0 day with 3 servings, 0 days with 5-6 servings, and 1 days with no vegetables. Desserts: 3 days with 1 serving, 0 day with 3 servings, 3 days with no dessert. Liquids: Ct drank: Water (8 ounce is 1 serving): 1 days with 1 servings, 2 day with 2 servings, 1 day with 3 servings,and 2 day with no servings Ct stated fair verbal understanding of ed. HEP: Track food and liquid using food tracker Increase water intake to 8 cups a day Increase fruit and vegetable intake to 3-4 servings a day Functional Neurological Disorder Management Problem: IE indicated some awareness of strategies to use to manage her FND symptoms. Current status: FND Management strategies: Mod verbal and visual ed on the following strategies to manage UE locking: Cognitive distractor: increasing attention on task by restating what is said or auditory focusing to each word. Ct stated she used this to manage jaw locking and UE symptoms: / helpful. 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 Noise resistant headphones: using 100% of the time. 01/[address] stated she has not been able to attain ear plugs 2/2 family financial situation. [place] of new accommodations. Accommodations id are: Allow use of sunglasses to manage sensitivity to overhead lighting to maintain engagement in school Money is tight and not able to get a pair. Allow use of fidgets to manage FND and anxiety symptoms to maintain engagement in school Using fidgets in school consistently. 05/[address] and mother stated fair verbal understanding of ed. HEP: Id accommodations that may still be needed Advocate to special woodworking machine feeder to ask for teacher notes Trial sunglasses in school to id help with visual sensitivity Explore online noise cancellation headphones to id if family can but one within their budget Medication Management Problem: IE indicated that ct needs mod vc, multiple times to take one dose. Medication is being kept on microwave near door that ct goes by to leave home. Ct id does not recall always correct dose to take of medication. Current status: Update: Ct stated using pill box that has sections for AM, afternoon, and night med's. Mom is filling pill box. Pill box is kept on microwave. Mom reminding ct to take med's. AM: Mon recalled. Today forgot. Unable to recall how she did over weekend. PM: Mon recalled. Today forgot. Unable to recall how she did over weekend. Evening: Mon recalled. Unable to recall how she did over weekend. Plan set on 12/13/2021: To set up an rodo to remind her. HEP: Work on increasing compliance with AM and afternoon med's FND Monitoring Form Rated using scale of 1-10 (1-not able to manage symptom to 10 able to manage symptom) on how well managing symptoms during task Session # 1 2 3 4 5 6 7 8 Date 11/08/2112/02 Manage FND LE symptoms while walking in community (Store and School): School 7 Store 2 School 10 2/2 not occurring Store 10 2/2 not occurring School 8 Store 1 Manage FND LE symptoms while walking up and down stairs in community: (Store and School): Avoiding the task Home 10 School avoiding 2/2 asthma Home 10 School avoiding 2/2 asthma Manage FND LE weakness symptoms during chores 5 10 9 (50% of the time occurring) Recall CBIT steps to setup CR's: manage vocal and motor tics 1 1 1 Eat 2-3 meals and snacks if missed a meal 7 8 1 Take medications 2 1 5 Manage FND UE symptoms during chores 1 10 4 Manage FND UE symptoms in community: (Store and School): 1 1 1 - CBIT Awareness Disease education: Not addressed this session Education on steps of CBIT program: Not addressed this session (CR) Rules: . Not addressed this session HEP: Use CR from previous OT episode. Education provided this session: Client was educated on: OT POC for today and next session. OT, ct, and mother agreed to hold OT tx to focus on pysch intervention for eating issues and anxiety. Client/family verbalized Fair understanding and shows need for further education/reinforcement. Assessment: Today's session focused on skilled ed on FND management. Ct had poor follow through of HEP. Cognition issues seem to be worse this week. OTR assesses this to be 2/2 low nutrition as eating issues are worsening. OTR ed family on stopping OT intervention to focus on psych intervention foreating issues and anxiety. OTR assess this is the best intervention for ct at this time as both aremain triggers for emergence of her FND symptoms. OTR plans to touch base with ct/family in 2 monthsto decide on d/c ct or continuing OT. As of today, ct is on hold. Ct will benefit from continued OTservices at 1x/wk to improve tic management to facilitate improved success within home and community activities. Goals for Occupational Therapy Intervention (new POC as of 10/10/2020) Short Term Goals: Goals Status 1. Ct will maintain a daily log of activities and its effect on her medical condition, 5/7 days a week for 4 wk's to id triggers of Functional Neurological Disorder within 2 mths. Not Achieved (10/23/2022) 2. Ct will state awareness of 3-4 triggers of her's FND symptoms, 80% of the time, on 2/3 wk's in 3mths. Id - auditory trigger on 2/2 sessions - food low intake on 4/4 sessions. -fatigue on 1 session - anxiety on 2/2 sessions Partially Achieved (10/23/2022) 3. Ct will maintain a daily log of eating and drinking and its effect on her medical condition, 5/7days a week for 4 wk's to id triggers of Functional Neurological Disorder (FND) within 2 mths. Met on 3/3 wk's Progressing (12/13/2020) 4. Ct will id 1-3 triggers for Functional Neurological Disorder (FND) within 2 mths. Discontinue Goal as same as STG 2 Discontinue Goal (11/08/2020) 5. Ct will id trigger and implement adaptive strategy for Functional Neurological Disorder (FND) with min vc on 3/4 sessions within 3 mths. Id: - sunglasses for visual sensitivity - noise resistant headphones - UE weight bearing -eating more food Partially Achieved (10/23/2022) 6. Client will state good verbal awareness of 5 steps of CBIT program to address tics within 3 mths. Not Achieved (10/23/2022) 7. Client will state good verbal awareness of 3 steps of creating a competing responses within 3 mths. Min verbal prompts to id: -step 3 (creating CR 3 steps) Partially Achieved (10/23/2022) Retirement Goals: Goals Status 1. Ct will walk up or down stairs with management of FND LE weakness symptoms, 70% of the time on 3/4 wk's within 6 mths. Met on 1/2 sessions. Partially Achieved (10/23/2022) 2. Ct will walk in community setting (i.e. store, temple peer groups, school) with management of FND LE weakness symptoms, 70% of the time on 3/4 wk's within 6 mths. Met on 1/2 sessions. Partially Achieved (10/23/2022) 3. Ct will complete chores with management of FND LE weakness symptoms, 70% of the time on 3/4 wk'swithin 6 mths. Met on 1/2 sessions. Partially Achieved (10/23/2022) 4. Ct will eat 2-3 meals a day or if missed a meal will eat a snack, 70% of the time on 3/4 wk's within 6 mths. Not Achieved (10/23/2022) 5. Ct will ind take medication with 1-3 adaptive strategies, 70% of the time on 3/4 wk's within 6 mths. Not Achieved (10/23/2022) 6. Client and caregiver will create and implement a competing response with moderate verbal cues in6 mths. Not Achieved (10/23/2022) 7. The patient has discontinued coming to therapy or has elected to not schedule additional appointments. Plan is to discontinue occupational therapy treatment. Vicky Ramachandran OT RCYCLE RIDING INSTRUCTOR documented in this encounter Plan of Treatment Not on file documented as of this encounter Visit Diagnoses Diagnosis Functional neurological symptom disorder with abnormal movement- Primary Anxiety Anxiety state, unspecified Bipolar 1 disorder, Anxiety Tic disorder Tic disorder, unspecified documented in this encounter Care Teams Orthopedic Physician Assistant Relationship Specialty Start Date End Date Cortney Pineda NP [address] [facility] [place] [address] PCP - General 06/09/19 Bassem Cho MD [address] [facility] [address] [place] [id number] 12/20/18 documented as of this encounter
--- OUTSIDE RECORDS SUMMARY | 2024-10-16 03:36 | XMS_ITS | Encounter Summary ---
Author Organization [facility] Address [address] [place] [address] Phone Care Team Providers Care Warehousing Technician Name Role Phone Bassem Cho MD Unavailable [phone] Cortney Pineda NP Primary Care Provider [phone] Vicky Ramachandran OT Unavailable [phone] Reason for Visit * Reason Onset Date Comments Scheduling Appointments 08/30/2021 Encounter Details Date Type Department Care Team (Late st Contact Info) Description 08/30/2021 Telephone [facility] Occupational Therapy [address] [place] [address] Vicky Ramachandran OT [address] [place] [address] Scheduling Appointments Social History Tobacco Use Types Packs/Day Years Used Date Smoking Tobacco: Never Smokeless Tobacco: Never Alcohol Use Standard Drinks/Week Comments No 0 (1 standard drink = 0.6 oz pur e alcohol) Comments No Sex and Gender Information Value Date Recorded Sex Assigned at Not on file Legal Sex Female 6:43 AM ENTERTAINMENT AGENT Gender Identity . 01/07/2021 9:24 AM CDT Sexual Orientation Not on file documented as of this encounter Miscellaneous Notes * Telephone Encounter - Vicky Ramachandran OT - 08/30/2021 12:46 PM CST Left message to call and schedule follow up appts as ct was last seen on 05/30 RTAINMENT AGENT documented in this encounter Plan of Treatment Not on file documented as of this encounter Visit Diagnoses Not on filedocumented in this encounter Care Teams Warehousing Technician Relationship Specialty Start Date End Date Cortney Pineda ENTERPRISE APPLICATIONS MANAGER [address] [place] [address] PCP - General 06/09/19 Bassem Cho MD [address] [place] [address] 12/20/18 Vicky Ramachandran OT [address] [place] [address] Occupational Therapist Occupational Therapy 04/19/21 documented as of this encounter
--- OUTSIDE RECORDS SUMMARY | 2024-10-16 03:36 | XMS_ITS | Encounter Summary ---
Author Organization [facility] Address [address] [place] [address] Phone Care Team Providers Care Whizzer Hand Name Role Phone Bassem Cho MD Unavailable [phone] Cortney Pineda NP Primary Care Provider [phone] Vicky Ramachandran OT Unavailable [phone] Reason for Referral * Medication Authorization (Routine) - Closed Specialty Diagnoses / Procedures Referred By Contac t Referred To Contact Diagnoses Encounter for management and injection of depo-Provera Jimena Lim MD [address] [address] Phone: tel: fax: Jimena Lim MD Phone: tel: fax: Referral ID Status Reason Start Date Expiration Date Visits Re quested Visits Authorized [id number] Closed 01/05/2022 02/04/2023 1 1 Reason for Visit * Medication Authorization (Routine) - Closed Specialty Diagnoses / Procedures Referred By Contdorian t Referred To Contact Diagnoses Encounter for management and injection of depo-Provera Jimena Lim MD [address] [address] Phone: tel: fax: Jimena Lim MD Phone: tel: fax: Referral ID Status Reason Start Date Expiration Date Visits Re quested Visits Authorized [id number] Closed 01/05/2022 02/04/2023 1 1 Encounter Details Date Type Department Care Team (Late st Contact Info) Description 01/05/2022 1:00 PM CDT Procedure visit [facility] [address] [facility] [address] [place] [address] Jimena Lim MD [address] [facility] [address] [place] [address] Encounter for management and injection of depo-Provera [...] on file 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 01/07/2021 9:24 AM CDT Sexual Orientation Not on file documented as of this encounter Last Filed Vital Signs Vital Sign Reading Time Taken Comments Blood Pressure 121/77 01/05/2022 1:07 PM CDT Pulse 92 01/05/2022 1:07 PM CDT Temperature 36.8 ??C (98.2 ??F) 01/05/2022 1:07 PM CD T Respiratory Rate 22 01/05/2022 1:07 PM CDT Oxygen Saturation - - Inhaled Oxygen Concentration - - Weight 64.9 kg (143 lb 1 oz) 01/05/2022 1:07 PM CDT Height 163.6 cm (5' 4.41 ) 01/05/2022 1:07 PM CD T Body Mass Index 24.25 01/05/2022 1:07 PM CDT Body Mass Index Percentile 79.44% 01/05/2022 1:0 7 PM CDT Growth Chart: CDC (Girls, 2- 20 Years) documented in this encounter Progress Notes * Jimena Lim MD - 01/05/2022 1:00 PM CDT Lexie Oconnell is a 16 y.o. adult here for repeat Depo Provera injection. HPI Date of first depo: 07/05/21 Last injection: 09/22/21 Weeks since last injection: 15 Weight change since last appointment: +8 lb Reason for Depo Provera use: Heavy menstrual bleeding. Side effects: weight gain, much less breakthrough bleeding Medication interactions: No Interested in continuing? Yes [...] easily. Psychiatric/Behavioral: Negative for depression. EXAM BP 121/77 (BP Location: Right arm, Patient Position: Sitting) Pulse 92 Temp 36.8 ??C (98.2 ??F)(Temporal) Resp 22 Ht 163.6 cm (5' 4.41 ) Wt 64.9 kg (143 lb 1 oz) BMI 24.25 kg/m?? Physical Exam Vitals reviewed. Constitutional: Appearance: [...] 150 mg/mL injection 150 mg Admin Date 01/05/2022 Action Given Dose 150 mg Route intramuscular Administered By Sarahi Patricio RMA FOLLOW UP Follow up in 11-13 weeks or sooner with problems. Jimena Lim MD documented in this encounter Plan of Treatment Not on file documented as of this encounter Procedures Procedure Name Priority Date/Time Associated Diagnosis Comments POCT HCG, URINE Routine 01/05/2022 1:20 PM CDT Encounter for management and injection of depo-Provera documented in this encounter Results * (ABNORMAL) POCT hCG, urine (01/05/2022 1:20 PM CDT) HCG, ur, POC Negative Lot Number [id number] QC Backgroud Clear Acceptable QC Control Line Acceptable Urine 01/05/2022 1:20 PM CDT Jimena Lim MD POINT OF [...] mg 150 mg, intramuscular, Once, On Mami 01/05/22 at 1400, For 1 dose, Shake wellIndications:Encounluis fernando r for management and injection of depo-Provera Given 01/05/2022 1:29 PM CDT 150 mg Left Dorsogluteal/Butto ck documented in this encounter Care Teams Whizzer Hand Relationship Specialty Start Date End Date Cortney Pineda, CASHIER PAYMENTS RECEIVED [address] [facility] [place] [address] PCP - General 06/09/19 Bassem Cho MD [address] [facility] [address] [place] [address] 12/20/18 Vicky Ramachandran, OT [address] [place] [address] Occupational Therapist Occupational Therapy 04/19/21 documented as of this encounter
--- OUTSIDE RECORDS SUMMARY | 2024-10-16 03:36 | XMS_ITS | Encounter Summary ---
Author Organization [facility] Address [address] [place] [address] Phone Care Team Providers Care Retail Salesman Name Role Phone Bassem Cho MD Unavailable [phone] Cortney Pineda NP Primary Care Provider [phone] Vicky Ramachandran OT Unavailable Reason for Visit * Reason Comments OT Treatment * Consultation (Routine) - Closed Specialty Diagnoses / Procedures Referred By Contact Referred To Contact Pediatric Occupational Therapy Diagnoses Tic disorder Negrita Pride MD PhD [id number] [place] [address] Phone: tel: fax: [facility] (All Locations) Referral ID Status Reason Start Date Expiration Date V isits Requested Visits Authorized [id number] Closed Specialty Services Required 11/29/2020 12/29/2021 24 24 Encounter Details Date Type Department Care Team (Late st Contact Info) Description 05/30/2021 11:00 AM CDT Therapy [facility] Occupational Therapy [address] [place] [address] Vicky Ramachandran, OT [address] [place] [address] Tic disorder (Primary Dx); Anxiety; Bipolar 1 disorder, Anxiety Social History Tobacco Use Types Packs/Day Years Used Date Smoking Tobacco: Never Smokeless Tobacco: Never Alcohol Use Standard Drinks/Week Comments No 0 (1 standard drink = 0.6 oz pur e alcohol) Comments No Sex and Gender Information Value Date Recorded Sex Assigned at Not on file 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 01/07/2021 9:24 AM CDT Sexual Orientation Not on file documented as of this encounter Progress Notes * Vicky Ramachandran, OT - 05/30/2021 11:00 AM CDT OT Daily Treatment Note Lexie Oconnell 2005 Subjective: Ct stated If I chance this (AM routine), I will be stressed all day when discussing how to add breakfast in. Ct stated she is having vocal blocking and stuttering symptoms when talking about her vocal tics. Pain: 2/10 (lower back 2/2 bad night of sleep) Objective: Client was seen in clinic setting. No change in medical status stated. Client's preferred pronouns: Ct prefers they/them, ze/zem, and it/its pronouns, when parents are not around. Client's preferred name: Gina when parents are not around. - Head Hitting CBIT Awareness Physical Actions for Head Hitting tic: ext finger with R or B Sh ER to hit head. - CBIT Awareness: Punching tic Physical Actions for punching tic: R finger flex, with sh ER to neutral to elb ext to punch back ofanother person head, neck, back, UE's or stomach. Premonitory Urge for punching tic: feeling in the head. Feeling like I am going to move : HEP Awareness Update: Ct stated she is able to id and use urge to catch her tic to use her CR. - CBIT Competing Response (CR): Punching tic CR for punching tic: Adduct arms, extend elbows, neutral wrists, extended fingers. Push glenohumeral joint down. HEP CR Practice: Using CR 40% of the time successful. - CBIT Awareness: Bees tic Physical Actions for Bee's tic: Verbalizes bee's . Premonitory Urge for bee's tic: Ct indicated she has an urge but verbalize feeling HEP Awareness Update: Tic has weaned - CBIT Awareness: worm or o worm Physical Actions for Bee's tic: Verbalizes worm or o worm Premonitory Urge for bee's tic: Ct indicated she has an urge of intensity in chest to speak or thought of word - CBIT Awareness: Bird Physical Actions for Bee's tic: Verbalizes Murder , Bird Premonitory Urge for bee's tic: Ct indicated she has an urge of intensity in chest to speak or thought of word HEP Awareness Update: Ct stated this tic weaned. - CBIT Awareness: Murder , I brought you murder , I am going to kill my mom , I brought you matt, murder, Judas no . Physical Actions for Bee's tic: Verbalizes Murder , I brought you murder and I am going to kill my mom Premonitory Urge for bee's tic: Ct indicated she has an urge of intensity in chest to speak or thought of word - CBIT Competing Response (CR): Vocal CR for bees , bird , worm or o worm , Murder , I brought you murder , I am going to kill my mom , and I brought you matt, murder, Judas no . Created CR: Client and family created a CR for bees , bird , worm or o worm , Murder , I brought you murder and I am going to kill my mom tics with max visual and verbal cues. CR for Vocal Tics: bees , bird , worm or o worm , Murder , I brought you murder and I am going to kill my mom tic: inhale though nose, exhale with open mouth, and write word with finger or tongue. HEP CR Practice: Using CR 20% of the time with good recall of actions. Tic Management ?? Ct presented with low frequency of vocal tics and physical tics (touching items). Frequency was within <3 vocal and physical tics/ hr at start with FND weakness. ?? Min verbal ed on Tic Nc Machinist as another way to manage her tics. Ct did not feel she be able to use suppression. ?? Ct id she like to shift tx to manage her FND symptoms. ?? 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 OTRasked ct what was her AM routine. Ct's mother stated she is up at 6:00 am as this time mom wakes her up. Ct stated it takes ~30 min to get out of bed and started AM routine. Ct when starting to say routine stopped and asked if she could write it. Ct wrote AM routine in extreme detail stating each task including sitting up in bed and turning lights on. She stated tasks have to be done in this order and if something or added or changed she feels like she is not prepared and will focus on mishap of AM routine all day. ?? OTR provided max verbal encouragement to add in breakfast with OTR suggesting multiple ways she could adapt AM routine. Ct agreed but was distressed in making change. ?? Max verbal and visual ed using OCD handouts in regards to how AM routine appears a compulsion. Mod verbal ed to talk to psychiatry team regarding concerns about OCD suspected behaviors to discuss tx options. ?? OTR provided ct a OCD handout on cycling of thoughts and ways to modify obsessive thought patterns. Mother was provided an OCD book name called OCD: A Workbook for Clinicians, Children and Teens:Actions to Beat, Control and Defeat Obsessive Compulsive Disorder by Deb Tran, PhD HEP: ?? Implement use of tic management strategies including: distractibility tasks (id coloring), proprioceptive tasks (id weighted blanket, pool, tub bathes), vestibular (id swinging, rocking chair), auditory (id music), and oral (id chew tube).. ?? Set up travel bag with tic management strategies ?? Decrease demands of day ?? Eat 3 meals or multiple snack (5 or more times a day) with variety of types of food to hit all nutrition areas ?? Use Helmet to protect head from self injurious motor tics ?? Wear sweatshirts to cover arms to protect arms from self injurious motor tics ?? Consult with psychiatry on OCD suspected behaviors and discuss tx options - CBIT CR Relief Scale (0/10 not helping manage tics and 10/10 consistently manage tics) - Punching tic CR: 03/10 increased to 04/09 - worm or o worm tic CR: 02/07 (no score as weaned) - Murder , I brought you murder and I am going to kill my mom tic CR: 01/08 increased to 5/10 Tic Symptom Hierarchy Tracker (04/11/2021 - not completed as ct struggled to focus and attend to answer questions. Mention of tics also increased tic actions) Tics are rated by client to determine which tics are interfering the most in daily activities. SUDSrating is a scale of 0-10 (0 not bothering me and 10 significantly bothersome) with client and caregiver rating tics for past week. Tic Symptoms SUDS Rating Session # 9 10 11 12 13 14 14 16 Date 04/27 05/04 05/30 1. Punching 5 Daily (3-5 x/day) 3 Weekly 4 Daily 2. Bees 4 Weekly 1 weaning 0 weaned 3. Kincaid Bees 0 Weaned 1 weaning 0 weaned 4. Copropraxia 5 Daily (4-6 x/day) 4 Weekly 5 Hourly 5. Coprolalia 5 Hourly 4 Daily 5 Hourly 6. Lateral neck flexion 7 Constant All neck tics pair together 4 Weekly 4 Weekly 7. Neck hyperextension 7 Constant All neck tics pair together 4 Weekly All neck tics pair together 4 Weekly 8. Neck protraction 7 Constant All neck tics pair together 4 Weekly All neck tics pair together 4 Weekly 9. Neck rotation 7 Constant All neck tics pair together 4 Weekly All neck tics pair together 5 Weekly 10. I have drugs 0 Weaned 0 Weaned 0 Weaned 12. Karate kick 4 Weekly 0 Weaned 3 Weekly 12. Fag 4 Weekly 3 Weekly 0 weaned 13. Bees in my edy 0 Weaned 0 Weaned 0 Weaned 14 I'm finch, no gender here Changed: gender-related tic 0 Weaned 4 Weekly 0 Weaned 15. Worms word/phrase o worm 6 Constant 5 Constant 0 Monthly 16. Murder word/phrase I brought you murder , I am going to kill my mom , and I brought you matt, murder, Judas no 5 Constant 4 Constant 3 Weekly Tic Distress Monitoring Form (04/11/2021 - not completed as ct struggled to focus and attend to answer questions. Mention of tics also increased tic actions) Tic name/ description How bothersome is it (distress scale) Session # 1 2 3 4 5 6 7 8 Date 02/23 04/18 04/27 8/05/30 Punching Tic: anxiety about punching sister/mother 7 7 6 4 5 Vocal Word: interferes with talking 6 8 Vocal Word: some of tics social inappropriate and increase negative attention 7 9 Education provided this session: Client was educated on: - OT POC for today and next session. Client/family verbalized Fair understanding and shows need for further education/reinforcement. Assessment: Session this week focused id focus of tx session as ct id FND symptoms are effecting day more that tics. OTR agreed to shift and started tx with eating issues. Ct admitted she is not eating breakfast. In discussing reasons, ct id she can not modify her AM routine, OTR observed ct havingOCD like compulsive behaviors. Skilled ed on OCD and compulsive behaviors were provided. Ct was issued handouts and mother was given a names of resource book. OTR ed mother to discuss concerns with psychiatry team to id a tx plan as OTR stated that unless OCD like behaviors can be managed eating routine will not change and we will not be able to progress with managing FND symptoms.Ct will benefitfrom continued OT services at 1x/wk to improve tic management to facilitate improved success withindresser and community activities. Goals for Occupational Therapy Intervention Short Term Goals: 1. Client and caregiver will verbally state understanding of client???s right to ADA accommodationswithin school setting and set plan to initiate accommodations in 4 weeks. IEP has been initiated Achieved (05/30/2021) 2. Client will participate in practicing competing response for identified tic for 15 minutes in 3 consecutive sessions in 4 weeks. Achieved (05/30/2021) 3. Client will increase awareness of their tic disorder and what facilitates and hinders tic management in 4 weeks. Fair verbal awareness on 05/08 weeks Skilled ed on stress management on 1/1 wk's Skilled ed on tic management strategies on 2/2 wk's Achieved (05/30/2021) 4. Client will implement 1-2 adaptive strategies to facilitate management of triggers resulting in increasing management of tic disorder on ?? weeks in 8 weeks. Skilled ed on sensory/emotional/environmental triggers of tics on 4/4 wk's. Achieved (05/30/2021) 5. Client will catch tic at 70% accuracy on 5/7 days per parent report to increase awareness of premonitory urge to facilitate tic management in 4 weeks. Met on 3/4 session for punching tic. Partially met (<40%) on 2/2 sessions within session for vocal tics. Progressing (05/04/2021) 6. Client will eat 3 meals a day on 3/4 weeks within 2 months. Progressing (05/30/2021) Carpenter Repairer Goals: 1. Client and caregiver will create and implement a competing response with minimal verbal cues across 2 sessions in 8 weeks. Met on 2/3 sessions Progressing () 2. Client will use the competing response for each identified tic during functional activities (eating out in community, shopping, and school activities) and in a variety of settings with 80% accuracy in 8 weeks. Using: - punching CR 75-80% of the time on 1/2 sessions - vocal CR 15% of the time on 1/2 sessions Progressing (05/30/2021) 3. Client will follow through with homework (awareness ex, practicing competing response) with 80% accuracy weekly for 8 weeks or until tics are resolved as reported by the client and parents within 2 months. Met on 5/9 sessions. Partially achieved 2/9 sessions. Achieved (05/30/2021) 4. Client will be able to self -advocate for zerself through short speech stating a definition of zero tic disorder and what others can do to help manage zero tics in [address] was ed on tic diagnosis and tic management strategies on 6/6 wk's. Progressing (04/27/2021) 5. Ct will manage FND symptoms 80% of the time for 3/4 weeks using adaptive strategies within 4 months. Progressing (05/30/2021) Frequency of OT visits: 1x/wk Duration in weeks: 3-4 months Plan discussed with: Patient and Family Start time: 1100 End time: 1215 documented in this encounter Plan of Treatment Not on file documented as of this encounter Visit Diagnoses Diagnosis Tic disorder- Primary Tic disorder, unspecified Anxiety Anxiety state, unspecified Bipolar 1 disorder, Anxiety documented in this encounter Care Teams Retail Salesman Relationship Specialty Start Date End Date Cortney Pineda NP [address] [facility] [place] [address] PCP - General 06/09/19 Bassem Cho MD [address] [place] [id number] 12/20/18 Vicky Ramachandran, OT [address] [place] [address] Occupational Therapist Occupational Therapy 04/19/21 documented as of this encounter
--- OUTSIDE RECORDS SUMMARY | 2024-10-16 03:36 | XMS_ITS | Encounter Summary ---
Author Organization [facility] Address [address] [place] [address] Phone Care Team Providers Care Fruit Worker Name Role Phone Bassem Cho MD Unavailable [phone] Cortney Pineda NP Primary Care Provider [phone] Vicky Ramachandran OT Unavailable [phone] Reason for Visit * Reason Comments OT Treatment * Consultation (Routine) - Closed Specialty Diagnoses / Procedures Referred By Contact Referred To Contact Pediatric Occupational Therapy Diagnoses Tic disorder Negrita Pride MD PhD [id number] [place] [address] Phone: tel: fax: [facility] (All Locations) Referral ID Status Reason Start Date Expiration Date V isits Requested Visits Authorized [id number] Closed Specialty Services Required 11/29/2020 12/29/2021 24 24 Encounter Details Date Type Department Care Team (Late st Contact Info) Description 12/02/2021 10:00 AM ART MANAGER Therapy [facility] Occupational Therapy [address] [place] [address] Vciky Ramachandran, OT [address] [place] [address] 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 01/07/2021 9:24 AM CDT Sexual Orientation Not on file documented as of this encounter Progress Notes * Vicky Ramachandran, OT - 12/02/2021 10:00 AM CST OT Daily Treatment Note Lexie Oconnell 2005 Subjective: Ct stated she was upset (tearful) as her parents told her she could not use her [employer] rodo as she was tracking medical info and they felt that she needs to do this with them. Ct stated shefeels like she does not understand why she does things (i.e. social struggles, sensory issues). Pain: 12/08 back and B sh and neck Objective: Client was seen [...] low intake of food. Current status: ?? Symptom update: o LE weakness: 1-2x/this week o R UE locking elb, wrist,and finger flex; occasionally BUE: 1x/day o Jaw locking: weaned o R LE > LLE locking hip, knee, and ankle ext: weaned ?? Trigger Awareness: ?? Min verbal prompts id when R UE locking ?? Ct id occurs during right after lunch. ?? Ct id trigger to be tired and hungry. ?? Plan to bring in snack to eat at lunch with her school lunch.Ct stated school lunch does not give me enough . ?? Food Log: Ct stated she tracked using food log but forgot log at home. ?? Ct stated fair verbal understanding of ed. HEP: ?? Track food and liquid using food tracker ?? Increase water intake to 8 cups a day ?? Increase fruit and vegetable intake to 3-4 servings a day Functional Neurological Disorder Management Problem: IE indicated some awareness of strategies to use to manage her FND symptoms. Current status: ?? FND Management strategies: ?? Mod verbal and visual ed on the following strategies to manage UE locking: ?? Cognitive distractor: increasing attention on task by restating what is said or auditory focusing to each word. ?? B UE weight bearing: sitting chair pushup ?? Ct id the following strategies help manage er FND symptoms on 10/10/21 ?? Leaving the task or environment ?? Quieting environment ?? Service dog ?? Noise resistant headphone ?? Music ?? Eating ?? Ct id she feels UE locking is triggered by low nutrition and fatigue. ?? School Accommodations: ?? Teacher notes: ct id she does not feel like she needs them this session. ?? Noise resistant headphones: using 100% of the time. 01/08 helpfulness. Min verbal ed on use of ear plugs under headphones to increase blocking of noise. ?? [place] of new accommodations. ?? Accommodations id are: ?? Allow use of sunglasses to manage sensitivity to overhead lighting to maintain engagement in school ?? Money is tight and not able to get a pair. ?? Allow use of fidgets to manage FND and anxiety symptoms to maintain engagement in school ?? Using fidgets in school consistently. 05/10 helpfulness. ?? Ct and mother stated fair verbal understanding of ed. HEP: ?? Id accommodations that may still be needed ?? Advocate to special classified advertising manager to ask for teacher notes ?? Trial [...] box is kept on microwave. ?? AM: forget to take her med's ?? PM: forget to take her med's ?? Evening: forget to take her med's ?? Plan set on 11/08/21: ?? Plan was to move toothbrush and paste to be next to or on top of pill box to help take med's in AM. ?? Add visual to basket that holds PJ pants, as this is the 1st task after school. change into PJ's, to help recall PM med's. ?? No update on 11/08/21 strategies ?? New plan set on 12/02/21 ?? Trial phone rodo to provide her reminders. HEP: Work on increasing compliance with AM and afternoon med's FND Monitoring Form Rated using scale of 1-10 (1-not able to manage symptom to 10 able to manage symptom) on how well managing symptoms during task Session # 1 2 3 4 5 6 7 8 Date 11/08/21 3/4 Manage FND LE symptoms while walking in community (Store and School): School 7 Store 2 School 10 2/2 not occurring Store 10 2/2 not occurring Manage FND LE symptoms while walking up and down stairs in community: (Store and School): Avoiding the task Home 10 School avoiding 2/2 asthma Manage FND LE weakness symptoms during chores 5 10 Recall CBIT steps to setup CR's: manage vocal and motor tics 1 1 Eat 2-3 meals and snacks if missed a meal 7 8 Take medications 2 1 Manage FND UE symptoms during chores 1 10 Manage FND UE symptoms in community: (Store and School): 1 1 - CBIT Awareness Disease education: Not addressed this session Education on steps of CBIT program: Not addressed this session (CR) Rules: Able to recall 3 rules of creating a CR with min verbal prompts. Ct stated fair verbal understanding. HEP: Use CR from previous OT episode. Education provided this session: Client was educated on: ?? OT POC for today and next session. ?? Mod verbal ed on norms for age level for id own identity including strengths and weakness ?? Min verbal ed on sensory and social issues being part of may medical dx including the one's she has. Client/family verbalized Fair understanding and shows need for further education/reinforcement. Assessment: Today's session focused on skilled ed on FND management and CBIT CR. Ct had good followthrough of HEP. LE FND symptoms are resolving. Ct arrived dysregulated with tear in her eyes. OTR help ct manage concerns she was having by ed ct on age level norm of id her own identity and on how her medical conditions how many of her symptoms can be part of her dx but also other dx to help ct understand dx she has. FND management focused on strategies to manage FND locking. CBIT ed focused on recall of CR rules. Plan for next session, to assess progress with establishing strategies and to continue ed on FND and CBIT management. Ct will benefit from continued OT services at 1x/wk to improvetic management to facilitate improved success within home [...] 2/2 sessions - food low intake on 3/3 sessions. -fatigue on 1/ session Progressing (12/02/2020) 3. Ct will maintain a daily log of eating and drinking and its effect on her medical condition, 5/7days a week for 4 wk's to id triggers of Functional Neurological Disorder (FND) within 2 mths. Met on 3/3 wk's Progressing (12/02/2020) 4. Ct will id 1-3 triggers for [...] - UE weight bearing -eating more food Progressing (12/02/2020) 6. Client will state good verbal awareness of 5 steps of CBIT program to address tics within 3 mths. New (10/10/2020) 7. Client will state good verbal awareness of 3 steps of creating a competing responses within 3 mths. Min verbal prompts to id: -step 3 (creating CR 3 steps) Progressing (12/02/2020) Fdc Goals: Goals Status 1. Ct will walk up or down stairs with management of FND LE weakness symptoms, 70% of the time on 3/4 wk's within 6 mths. Met on 10/01 sessions. Progressing (12/02/2020) 2. Ct will walk in community setting (i.e. store, [employer], school) with management of FND LE weakness symptoms, 70% of the time on 3/4 wk's within 6 mths. Met on 10/01 sessions. Progressing (12/02/2020) 3. Ct will complete chores with management of FND LE weakness symptoms, 70% of the time on 3/4 wk'swithin 6 mths. Met on 10/01 sessions. Progressing (12/02/2020) 4. Ct will eat 2-3 meals a [...] discussed with: Patient and Family Start time: 1001 End time: 1058 MANAGER documented in this encounter Plan of Treatment Not on file documented as of this encounter Visit Diagnoses Diagnosis Functional neurological symptom disorder with abnormal movement- Primary Anxiety Anxiety state, unspecified documented in this encounter Care Teams Fruit Worker Relationship Specialty Start Date End Date Cortney Pineda NP [address] [place] [address] PCP - General 06/09/19 Bassem Cho MD [address] [address] [place] [id number] 12/20/18 Vicky Ramachandran, OT [address] [place] [address] Occupational Therapist Occupational Therapy 04/19/21 documented as of this encounter
--- OUTSIDE RECORDS SUMMARY | 2024-10-16 03:36 | XMS_ITS | Encounter Summary ---
Author Organization [facility] Address [address] [place] [address] Phone Care Team Providers Care Manager Transmission Name Role Phone Bassem Cho MD Unavailable [phone] Cortney Pineda NP Primary Care Provider [phone] Vicky Ramachandran OT Unavailable [phone] Reason for Visit * Reason Comments New Patient BREAST REDUCTION * Consultation (Routine) - Closed Specialty Diagnoses / Procedures Referred By Juana richard Referred To Contact Pediatric Plastic Surgery Diagnoses Macromastia Jimena Lim MD 1 [facility] [address] [place] [address] Phone: tel: fax: [facility] (All Locations) Referral ID Status Reason Start Date Expiration Date V isits Requested Visits Authorized [id number] Closed Specialty Services Required 07/07/2021 08/06/2022 99 99 Encounter Details Date Type Department Care Team (Latest Contact Info) Description 07/21/2021 2:30 PM CDT Office Visit [facility] [address] [facility] [address] [place] [address] Valarie Vincent, PhD [address] [place], [place] [id number] Chronic bilateral back pain, unspecified back location (Primary Dx); Macromastia Social History Tobacco Use Types Packs/Day Years Used Date Smoking Tobacco: Never Smokeless Tobacco: Never Alcohol Use Standard Drinks/Week Comments No 0 (1 standard drink = 0.6 oz pur e alcohol) Comments No Sex and Gender Information Value Date Recorded Sex Assigned at Not on file Legal Sex Female 6:43 AM [employer]IDENT OF [place] Gender Identity . 01/07/2021 9:24 AM CDT Sexual Orientation Not on file documented as of this encounter Last Filed Vital Signs Vital Sign Reading Time Taken Comments Blood Pressure - - Pulse - - Temperature - - Respiratory Rate - - Oxygen Saturation - - Inhaled Oxygen Concentration - - Weight 60.6 kg (133 lb 8 oz) 07/21/2021 2:16 PM CDT Height 163.5 cm (5' 4.37 ) 07/21/2021 2:16 PM CD T Body Mass Index 22.65 07/21/2021 2:16 PM CDT Body Mass Index Percentile 69.40% 07/21/2021 2:1 6 PM CDT Growth Chart: CDC (Girls, 2- 20 Years) documented in this encounter Progress Notes * Valarie Vincent, PhD - 07/21/2021 2:30 PM CDT Images from the original note were not included. 07/21/2021 RE:Lexie Oconnell :2005 CHIEF COMPLAINT: Breast reduction for macromastia HISTORY OF PRESENT ILLNESS: Lexie Oconnell is an 15 y.o.-year-old female who was seen in consultation at the request of Cortney Pineda NP for possible breast reduction. She reports that her breasts are symmetric . She reports back pain which has been present for 4 years. She has not noted any activities or medications that improve or exacerbate the pain. She has gone to physical therapy for the back pain. The back pain is mostly in her upper and lower back. In addition, she reportsthat her bra straps cause grooves in her shoulders bilaterally. She currently wears a size 34F bra.She reports she has been wearing a bra since she was very young. In addition, the patient has had sk in rashes located between and beneath her breasts. Lexie Oconnell 's height has not changed for the past year. Her shoe size has not changedfor the past year. Her weight has not changed for the past year. Her breast size has not changed inthe past 6 months. Lexie Oconnell has never noted any breast masses. She has never had a breast biopsy. She denies any nipple discharge. There is not a family history of breast cancer. There is a family history of large breast size on the maternal side of the family. Mom had a breast reduction at age 21 years. She would like to be closer to a B cup bra size. PAST MEDICAL HISTORY: Past Medical History: Diagnosis Date ??? Bipolar 1 disorder (CMS/HCC) (HCC) ??? Dorsalgia Mid back pain - (Added by TW Conv) ??? Metatarsal fracture ??? Migraines ??? Prematurity 29 weeks Tourettes syndrome MEDICATIONS: Current Outpatient Medications Medication Sig Dispense Refill ??? Advair Diskus 500-50 mcg/dose diskus inhaler Inhale 1 puff 2 (two) times a day ??? albuterol (PROVENTIL,VENTOLIN) 2.5 mg /3 mL (0.083 %) nebulizer solution Take 2.5 mg by nebulization every 4 (four) hours as needed for wheezing or shortness of breath. ??? albuterol HFA (PROVENTIL HFA,VENTOLIN HFA,PROAIR HFA) 90 mcg/actuation inhaler Inhale 2 puffs every 6 (six) hours as needed for wheezing or shortness of breath. ??? clonazePAM (KlonoPIN) 1 mg tablet Take 1 mg by mouth 3 (three) times a day. ??? cloNIDine (CATAPRES) 0.2 mg tablet Take 1 tablet (0.2 mg total) by mouth 2 (two) times a day 60tablet 8 ??? divalproex ER (DEPAKOTE ER) 500 mg 24 hr tablet TAKE 2 TABLETS BY MOUTH AT BEDTIME 0 ??? ergocalciferol (Vitamin D2) 50,000 unit capsule Take 1 capsule (50,000 Units total) by mouth once a week 4 capsule 2 ??? ferrous sulfate 325 mg (65 mg of elemental iron) tablet Take 1 tablet (325 mg total) by mouth daily with breakfast 30 tablet 3 ??? ibuprofen (ADVIL,MOTRIN) suspension 100 mg/5 mL Take by mouth every 4 (four) hours as needed for pain No current facility-administered medications for this visit. ALLERGIES: Allergies Allergen Reactions ??? Breo Ellipta [Fluticasone Furoate-Vilanterol] Rash ??? Fluticasone Hives Hives ??? Vilanterol Hives Hives SOCIAL HISTORY: Social History Socioeconomic History ??? Marital status: Single Spouse name: Not on file ??? Number of children: Not on file ??? Years of education: Not on file ??? Highest education level: Not on file Occupational History ??? Not on file Tobacco Use ??? Smoking status: Never Smoker ??? Smokeless tobacco: Never Used Substance and Sexual Activity ??? Alcohol use: No ??? Drug use: No ??? Sexual activity: Not on file Other Topics Concern ??? Not on file Social History Narrative SOCIAL HISTORY School: attends [address] has to retake classes Home: lives with parents, siblings, cats Activities: youth group, video games, art Sexuality/Sexual Activity: denies history of sexual activity Substance Use: denies current Social Determinants of Health Financial Resource Strain: ??? Difficulty of Paying Living Expenses: Not on file Food Insecurity: ??? Worried About Running Out of Food in the Last Year: Not on file ??? Ran Out of Food in the Last Year: Not on file Transportation Needs: ??? Lack of Transportation (Medical): Not on file ??? Lack of Transportation (Non-Medical): Not on file Physical Activity: ??? Days of Exercise per Week: Not on file ??? Minutes of Exercise per Session: Not on file Stress: ??? Feeling of Stress : Not on file Intimate Partner Violence: ??? Fear of Current or Ex-Partner: Not on file ??? Emotionally Abused: Not on file ??? Physically Abused: Not on file ??? Sexually Abused: Not on file FAMILY HISTORY: Family History Problem Relation Age of Onset [...] ??? Factor V Leiden deficiency Maternal Grandmother REVIEW OF SYSTEMS & PAST MEDICAL HISTORY: A thorough review of systems was performed per the patient???s general health questionnaire. Patient Active Problem List Diagnosis ??? Mild persistent asthma ??? Anxiety ??? Depression ??? Bipolar 1 disorder, Anxiety ??? Menorrhagia ??? Panic attacks ??? Migraine ??? Functional neurological symptom disorder with abnormal movement PHYSICAL EXAMINATION: On physical exam, Lexie Oconnell is a healthy- appearing adolescent female. She is alert and appropriate and in no acute distress. Her height today is 5 feet 4 inches and weight is 133 lbs giving her a BMI of Body mass index is 22.65 kg/m??.. Her head shape is normocephalic. Her sclera is anicteric bilaterally. Her mucous membranes are moist. Her facial movements are symmetric. Her oropharynx is clear. Her neck is supple with no palpable lymphadenopathy. Her breathing is nonlabored. Her abdomen is soft, nontender, and nondistended. On breast examination, she haslarge pendulous breasts which are symmetric. She has no palpable masses in her breasts or axillary regions bilaterally. Her notch to nipple distances 27 cm on the left and 25 cm on the right. Her nipple to IMF distance is 11 cm on the left and 10cm on the right. Her breast width 15 cm on the left and 16 on the right and her areolar diameter is 4 cm on the left and 4 on the right. Her pectoralis muscles are present bilaterally. Her extremities are warm and well-perfused throughout. ASSESSMENT AND PLAN:Lexie Oconnell is an 15 y.o. female who has symmetric macromastia andresulting back pain, shoulder grooving, and skin rashes. We discussed keeping a pain diary to better elucidate her pain symptoms and perhaps identify a pattern of when pain occurs and with what activities. In addition, I would like for her to see physical therapy for core strengthening to improve posture and to assist with back pain. We discussed that changes in breast size can occur with changes in overall weight as well as with hormonal changes such as . We discussed that she should be at an ideal body weight at which she can maintain and she is satisfied with prior to any breast surgery to improve her postoperative satisfaction and [facility] outcome. We also discussed that breast size can change after childbearingor . In addition, we discussed that she may have the inability to breast feed following breast surgery. We discussed the details of a breast reduction procedure. We discussed anticipated scars in an anchor-like pattern. We discussed that she would also have a lifted appearance of the breasts following a breast reduction. We discuss all the tissue is sent for pathology examination. We discussed the risks of surgery which include, but are not limited to, infection, bleeding, damage to nearby structures such as sensory nerves, milk ducts, or blood supply. We discussed additional risks which include,but are not limited to, loss of all or part of the nipple-areolar complex, unfavorable scarring, wound healing difficulties, persistent breast asymmetries, dissatisfaction with breast size or breastshape, and need for additional surgical procedures. We discussed that scar tissue would be visible on her future screening mammograms. All of her and her mother's questions were answered to their satisfaction. I encouraged them to consider the information presented today and discuss it together. I believe reach it would be a good candidate for breast reduction surgery. After discuss the case and reviewing photos with Dr. Louise Douglass I believe approximately 270 gm can be removed from each breast. Thank you for allowing me to participate in Lexie Beezaanitra Oconnell's care. I shall keep you informed of her progress. Sincerely, Valarie Vincent, PhD Cosigned by Louise Coffman MD at 07/22/2021 11:51 AM CDT documented in this encounter Plan of Treatment Not on file documented as of this encounter Visit Diagnoses Diagnosis Chronic bilateral back pain, unspecified back location- Primary Macromastia Hypertrophy of breast documented in this encounter Orders Outpatient Referral Count Last Ordered Date Fir st Ordered Date AMB REFERRAL TO PEDIATRIC PLASTIC SURGERY 1 07/21/2021 documented in this encounter Care Teams Manager Transmission Relationship Specialty Start Date End Date Cortney Pineda AVIATION ELECTRONICS TECHNICIAN [address] [address] PCP - General 06/09/19 Bassem Cho MD [address] [facility] [address] [place] [address] 12/20/18 Vicky Ramachandran OT [address] [place] [address] Occupational Therapist Occupational Therapy 04/19/21 documented as of this encounter
--- OUTSIDE RECORDS SUMMARY | 2024-10-16 03:36 | XMS_ITS | Encounter Summary ---
Author Organization [facility] Address [address] [place] [address] Phone Care Team Providers Care Cinder Pit Crane Operator Name Role Phone Bassem Cho MD Unavailable [phone] Cortney Pineda NP Primary Care Provider [phone] Vicky Ramachandran OT Unavailable [phone] Reason for Visit * Reason Comments OT Treatment * Consultation (Routine) - Closed Specialty Diagnoses / Procedures Referred By Contact Referred To Contact Pediatric Occupational Therapy Diagnoses Tic disorder Negrita Pride MD PhD [address] [place] [address] Phone: tel: fax: [facility] (All Locations) Referral ID Status Reason Start Date Expiration Date V isits Requested Visits Authorized [id number] Closed Specialty Services Required 11/29/2020 12/29/2021 24 24 Encounter Details Date Type Department Care Team (Late st Contact Info) Description 12/13/2021 1:[address] [facility] Occupational Therapy [address] [place] [address] Vicky Ramachandran, OT [address] [place] [address] Functional neurological symptom disorder with [...] on file Legal Sex Female 6:43 AM [employer] Gender Identity . 01/07/2021 9:24 AM CDT Sexual Orientation Not on file documented as of this encounter Progress Notes * Vicky Ramachandran, OT - 12/13/2021 1:00 PM CDT OT Daily Treatment Note Lexie Oconnell [...] status: ?? Symptom update: o LE weakness: School: occurring couple times a week. Store: 1x/wk occurring frequently. - Trigger (store): distressed dog was leaving and how react to nails being cut. o R UE locking elb, wrist,and finger flex: multiple times a day - Trigger: id may be 2/2 low food intake. o Jaw lockin-3 x/wk for brief time frames - Trigger: not sure o R LE > LLE locking hip, knee, and ankle ext: weaned ?? Trigger Awareness: ?? Mod to max verbal ed to mother and ct regarding eating and stress triggers and how psychology intervention is needed more at this time. Mother agreed and stated she is working on setting ct up with psych supports for both issues. OTR advocated for more intense intervention for eating issues as ct issues seem very serious. ?? Ct when trying to tell OTR about [...] 3 servings,and 2 day with no servings ?? Ct stated fair verbal understanding of [...] or auditory focusing to each word. ?? Ct stated she used this to manage jaw locking and UE symptoms: 02/07 helpful. ?? B UE weight bearing: sitting chair pushup ?? Not using as she forgot about the strategy ?? Ct id the following strategies help manage er FND symptoms on 10/10/21 ?? Leaving the task or environment ?? Quieting environment ?? Service dog ?? Noise resistant headphone ?? Music ?? School Accommodations: ?? Teacher notes: ct id she does not feel like she needs them this session. ?? Noise resistant headphones: using 100% of the time. 01/[address] she has not beenable to attain ear plugs 2/2 family financial situation. ?? [place] of new accommodations. ?? Accommodations id are: [...] still be needed ?? Advocate to special registered nurse practitioner to ask for teacher notes ?? Trial [...] to take of medication. Current status: ?? Update: Ct stated using pill box that has sections for AM, afternoon, and night med's. Mom is filling pill box. Pill box is kept on microwave. Mom reminding ct to take med's. ?? AM: Mon recalled. Today forgot. Unable to recall how she did over weekend. ?? PM: Mon recalled. Today forgot. Unable to recall how she did over weekend. ?? Evening: Mon recalled. Unable to recall how she did over weekend. ?? Plan set on 12/13/2021: ?? To set up an rodo to remind [...] POC for today and next session. ?? OT, ct, and mother agreed to hold [...] low intake on 4/4 sessions. -fatigue on 1/ session - anxiety on 2/2 sessions Progressing (12/13/2020) 3. Ct will maintain a daily log [...] UE weight bearing -eating more food Progressing (12/13/2020) 6. Client will state good verbal awareness of 5 steps of CBIT program to address tics within 3 mths. New (10/10/2020) 7. Client will state good verbal awareness of 3 steps of creating a competing responses within 3 mths. Min verbal prompts to id: -step 3 (creating CR 3 steps) Progressing (12/02/2020) Pulper Tender Goals: Goals Status 1. Ct will walk up or down stairs with management of FND LE weakness symptoms, 70% of the time on 3/4 wk's within 6 mths. Met on 1/2 sessions. Progressing (12/13/2020) 2. Ct will walk in community setting (i.e. store, protestant peer groups, school) with management of FND LE weakness symptoms, 70% of the time on 3/4 wk's within 6 mths. Met on 1/2 sessions. Progressing (12/13/2020) 3. Ct will complete chores with management of FND LE weakness symptoms, 70% of the time on 3/4 wk'swithin 6 mths. Met on 1/2 sessions. Progressing (12/13/2020) 4. Ct will eat 2-3 meals a [...] and Family Start time: 1306 End time: 1359 documented in this encounter Plan of Treatment Not on file documented as of this encounter Visit Diagnoses Diagnosis Functional neurological symptom disorder with abnormal movement- Primary Anxiety Anxiety state, unspecified Bipolar 1 disorder, Anxiety Tic disorder Tic disorder, unspecified documented in this encounter Care Teams Cinder Pit Crane Operator Relationship Specialty Start Date End Date Cortney Pineda NP [address] [address] PCP - General 06/09/19 Bassem Cho MD [address] [facility] [address] [place] [address] 12/20/18 Vicky Ramachandran OT [address] [place] [address] Occupational Therapist Occupational Therapy 04/19/21 documented as of this encounter
--- OUTSIDE RECORDS SUMMARY | 2024-10-16 03:36 | XMS_ITS | Encounter Summary ---
Author Organization [facility] Address [address] [place] [address] Phone Care Team Providers Care Nurse Sitter Name Role Phone Bassem Cho MD Unavailable [phone] Cortney Pineda NP Primary Care Provider [phone] Vicky Ramachandran OT Unavailable [phone] Reason for Visit * Reason Onset Date Comments Forms/questionnaires 06/10/2021 Encounter Details Date Type Department Care Team (Late st Contact Info) Description 06/10/2021 Telephone [facility] Pediatric Neurology [address] [place] [id number] Negrita Pride MD PhD [address] [place] [address] Forms/questionnaires Social History Tobacco Use Types Packs/Day Years Used Date Smoking Tobacco: Never Smokeless Tobacco: Never Alcohol Use Standard Drinks/Week Comments No 0 (1 standard drink = 0.6 oz pur e alcohol) Comments No Sex and Gender Information Value Date Recorded Sex Assigned at Not on file 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 01/07/2021 9:24 AM CDT Sexual Orientation Not on file documented as of this encounter Miscellaneous Notes * Telephone Encounter - Mera Patel MA - 06/20/2021 8:58 AM CDT Forms signed and refaxed. * Telephone Encounter - Alesha Angel RMA - 06/16/2021 9:42 AM CDT Received email from Dr. Pride- she will not be back to campus until Sunday. Called [facility] and spoke with Nuria, gave her an update. She stated that family did need theforms this week. But if we have to wait then that's fine. DMV form is completed, pending signature. * Telephone Encounter - Alesha Angel RMA - 06/16/2021 9:27 AM CDT Checked all of the appropriate places and form cannot be found. Will re-fill out the blank form that is scanned into chart. Email sent to Dr. Pride to see about availability to sign. * Telephone Encounter - Caro Felder ST - 06/15/2021 4:16 PM CDT PCP office calling to clarify what might have happened regarding forms. They received them via fax,but they were not completed and signed. What is scanned to the media tab on 06/10 only reflect the portion the PCP office had completed. Please complete and resend documents to: [facility] ATTN: Nuria F: [phone] * Telephone Encounter - Doreen Norton - 06/14/2021 4:27 PM CDT Mom is calling in stating that the PCP's office received the fax yesterday, but it was hard to read. They are requesting that the paperwork be refaxed too: [phone] and [phone]. She is also requesting them to be emailed to: [email or web address] * Telephone Encounter - Mera Patel MA - 06/13/2021 9:08 AM CDT Form completed, signed by Dr. Pride and faxed back to PCP office as directed. * Telephone Encounter - Negrita Pride MD PhD - 06/13/2021 8:56 AM CDT Yes, medically fit. Not controlled. Her functional neurologic disorder has not resulted in loss of consciousness and abnormal movements should not affect driving. * Telephone Encounter - Mirtha Boucher RN - 06/13/2021 8:[address] Pride, Please advise on 1 and 5 1: In your professional opinion, is this individual MEDICALLY FIT to safely operate a motor vehicle? Yes OR no 5: current status of condition: A: controlled B: not controlled: will not affect driving C: not controlled: may affect driving If not controlled is marked, you must provide details, which may include pertinent clinical information, ie test results, labs, etc * Telephone Encounter - Mera Patel MA - 06/13/2021 8:29 AM CDT Please assist with questions number 1 and 5. Thank you. * Telephone Encounter - Negrita Pride MD PhD - 06/10/2021 4:19 PM CDT Yes, I had a discussion with PCP over email. * Telephone Encounter - Mirtha Boucher RN - 06/10/2021 3:[address] Pride, Please see DMV form uploaded to the media tab. OK to sign and send back? * Telephone Encounter - Yani Chua RN - 06/10/2021 3:11 PM CDT Bigg, movement, not Cerebral Palsy. * Telephone Encounter - Mera Patel MA - 06/10/2021 2:42 PM CDT Received DMV forms for patient. Scanned into chart. Please advise. documented in this encounter Plan of Treatment Not on file documented as of this encounter Visit Diagnoses Not on filedocumented in this encounter Care Teams Nurse Sitter Relationship Specialty Start Date End Date Cortney Pineda NP [address] [place] [address] PCP - General 06/09/19 Bassem Cho MD [address] [facility] [facility] [address] [place] [address] 12/20/18 Vicky Ramachandran OT [address] [place] [address] Occupational Therapist Occupational Therapy 04/19/21 documented as of this encounter
--- OUTSIDE RECORDS SUMMARY | 2024-10-16 03:36 | XMS_ITS | Encounter Summary ---
Author Organization [facility] Address [address] [place] [address] Phone Care Team Providers Care Roadmaster Name Role Phone Bassem Cho MD Unavailable [phone] Cortney Pineda NP Primary Care Provider [phone] Vicky Ramachandran OT Unavailable [phone] Reason for Visit * Reason Comments OT Initial Eval * Consultation (Routine) - Closed Specialty Diagnoses / Procedures Referred By Contact Referred To Contact Pediatric Occupational Therapy Diagnoses Tic disorder Negrita Pride MD PhD [id number] [place] [address] Phone: tel: fax: [facility] (All Locations) Referral ID Status Reason Start Date Expiration Date V isits Requested Visits Authorized [id number] Closed Specialty Services Required 11/29/2020 12/29/2021 24 24 Encounter Details Date Type Department Care Team (Late st Contact Info) Description 10/10/2021 11:00 AM HEALTHCARE REPRESENTATIVE Therapy [facility] Occupational Therapy [address] [place] [address] Vicky Ramachandran, OT [address] [place] [address] Tic disorder (Primary Dx); Functional neurological symptom disorder with abnormal movement; Anxiety Social History Tobacco Use Types Packs/Day Years Used Date Smoking Tobacco: Never Smokeless Tobacco: Never Alcohol Use Standard Drinks/Week Comments No 0 (1 standard drink = 0.6 oz pur e alcohol) Comments No Sex and Gender Information Value Date Recorded Sex Assigned at Not on file Legal Sex Female 6:43 AM HEALTHCARE REPRESENTATIVE Gender Identity . 01/07/2021 9:24 AM CDT Sexual Orientation Not on file documented as of this encounter Progress Notes * Vicky Ramachandran, OT - 10/10/2021 11:00 AM CST OT Re-Evaluation Note Lexie Oconnell 2005 Subjective: Ct stated Tic's are so much better ; I got my driving permit ; I am worried about having to eat more . Pain: 0/10 Objective: Client was seen in clinic setting. No change in medical status stated. Client's preferred pronouns: Ct prefers they/them, ze/zem, and it/its pronouns, when parents are not around. Client's preferred name: Gina when parents are not around. Tic Management ?? Ct presented with low frequency of vocal tics and physical tics (touching items). Frequency was 3-4 vocal and 2-3 physical tics within session. - CBIT Awareness: Punching tic Physical Actions for punching tic: R finger flex, with sh ER to neutral to elb ext to punch back ofanother person head, neck, back, UE's or stomach. Premonitory Urge for punching tic: feeling in the head. Feeling like I am going to move - CBIT Competing Response (CR): Punching tic CR for punching tic: Adduct arms, extend elbows, neutral wrists, extended fingers. Push glenohumeral joint down. HEP CR Practice: Ct stated ze is using zer CR for zer UE tics and finding it is helping a little. Ct did not id to OTR which tics ze is using CR with - CBIT Awareness: Bees tic Physical Actions for Bee's tic: Verbalizes bee's . Premonitory Urge for bee's tic: Ct indicated ze has an urge but unable to verbalize feeling HEP Awareness Update: Tic has weaned - CBIT Awareness: worm or o worm Physical Actions for Bee's tic: Verbalizes worm or o worm Premonitory Urge for bee's tic: Ct indicated ze has an urge of intensity in chest to speak or thought of word - CBIT Awareness: Bird Physical Actions for Bee's tic: Verbalizes Murder , Bird Premonitory Urge for bee's tic: Ct indicated ze has an urge of intensity in chest to speak or thought of word - CBIT Awareness: Murder , I brought you murder , I am going to kill my mom , I brought you matt, murder, Judas no . Physical Actions for Bee's tic: Verbalizes Murder , I brought you murder and I am going to kill my mom Premonitory Urge for bee's tic: Ct indicated ze has an urge of intensity in chest [...] with finger or tongue. HEP CR Practice: No update on use of CR. [facility] Occupational Performance Measure (COPM): Old POC The [facility] Occupational Performance Measure (COPM) is a semi-structured interview that explores difficulty with functional tasks in a variety of performance areas. Clients identify areas with whichthey currently struggle and in which would like to improve. They then rate the importance of each activity from 1-10 (1-low importance, 10-high importance). From importance ratings, a list of 3-5 priority areas are identified. Clients then rate priority areas on (1) their current performance level and (2) satisfaction with their current performance level (1-10; 1-low performance, low satisfaction, 10-high performance, high satisfaction). IE (01/06/2021 IE (01/06/2021) IE (01/06/2021) Re-Eval D/C of COPM goals. (10/10/2020) Importance Current Performance Level Current Satisfaction Level Current Performance Level Current Satisfaction Level Self-Care Personal Care 1. Eat 3 meals a day 7 4 1 2 5 2. Eating: Motor tics make zer throw utensils, throw food, dump drinks, pour liquids, or smack foodwhen eating. 1 5 7 7 8 3. Medication: Needs multiple reminders to take medication; choking tic interferes with swallowing medications 17 1 1 1 Recall to take Tic weaned 1 Functional Mobility 1. Stairs: Difficulty going up and down stairs due to legs giving out 2/2 FND 5 7 7 10 Home 10 Home 2. Walking: Difficult walking due to legs giving out 2/2 FND or vocal tics ( I have a gun or I have drugs ) 18 4 4 4 FND still occurring Vocal tics low frequency 4 Community Management 1. Finance Management 6 8 6 5 4 2. Talking on phone: screams when talking on phone 12 4 5 6 7 3. Driving: Grabs steering wheel when others driving. Has not been able to learn to drive 2/2 tics. 14 6 1 10 10 4. Walking: Vocal tics shouts inappropriate phrases at law enforcement 16 2 1 5 6 Productivity Paid/Unpaid Work 1. Babysit: cannot take care of younger siblings due to violent tics 2 8 9 6 7 Household Management 1. Carrying items: Motor tics interfere with carrying items 4 3 3 7 8 2. Sweeping: Motor tics makes ct points broom at others to sword fight 3 5 5 10 10 3. Pet Management: motor tics make zer grab the pets with too much force or push them over 13 9 4 7 7 4. Meal Prep: Motor tics make zer grab knives and point them at others 15 4 3 10 10 Play/School 1. Writing: Writes the same word repeatedly rocks 9 6 5 10 10 2. School: Negative attention at school 2/2 tics and legs giving out 11 1 1 8 7 3. Typing: Hits the keyboard when typing due to UE tics 8 4 5 10 10 Leisure Socialization 1.Youth Group: Tics make it difficult to participate in youth group when around [place] 10 2 1 4 5 Priority areas for OT intervention are: 1. Increase ability to manage FND to walk without falling to ground or vocal tics ( I have a gun or I have drugs ) 2. Increase ability to manage medication, adhere to medication schedule, and manage tics to safely swallow medication. 3. Increase ability to manage unwanted vocal tics around law enforcement to promote safety. 4. Increase ability to manage tics to safely use kitchen tools for meal preparation. 5. Promote safety in car through managing tics of grabbing steering wheel to increase ind with community mobility 6. Increase ability to manage tics to grade movement to safely interact with pets. 7. Increase ability to manage vocal tics during phone calls. 8. Increase ability to manage tics at school and to cope with unwanted attention at school. 9. Increase ability to manage tics during youth group. 10. Increase ability to manage tics to allow for controlled, voluntary writing. 11. Increase ability to manage tics to complete typing tasks. 12. Increase awareness of hunger to eat 3 meals a day. 13. Increase ability to manage tics and related anxiety when completing purchases. 14. Increase ability to manage tics to safely go up and down stairs. 15. Increase ability to manage tics while carrying items to promote safety (avoid throwing, dropping, or launching items) when with others. 16. Increase ability to manage tics to promote ability to safely sweep floors. 17. Increase ability to manage potentially dangerous tics while babysitting siblings. 18. Increase ability to manage tics while completing fine motor tasks (holding cup, utensils, etc) during meal time. IE Performance Score: 4.6 IE Satisfaction Score: 3.8 Re-eval Performance Score: 6.78 Re-eval Satisfaction Score: 6.61 Change in performance score is: +2.18. This score indicates that the client's self-rated performance improved with OT intervention. Change in satisfaction score is: +2.81. This score indicates that the client's satisfaction with performance improved with OT intervention. Functional Neurological Symptoms ??? LE weakness ??? [...] low intake of food. Current status: ?? Mod verbal prompts to id symptoms and triggers. ?? Eating: ?? Ct and mother stated eating only 1x a day. ?? Mother stated she provides mod vc to eat throughout the day. ?? Ct id ze knows eating is effecting symptoms but is anxious about making the change. ?? Min to mod verbal ed on how OT and psych will have to work with ct together on this to manage anxiety and work on establishing eating routines. ?? Ct id symptoms are effecting: ?? Walking in community settings (quaker youth group gatherings, school): ct is using w/c as FND symptoms typically occur throughout day. ?? Triggers: lots of people, mod to high stim environments ?? Walking in halls at school: ct not using ze/c. Ct has frequent falls and injuries. Mother when injured has to pickle solution maker ct. This occurs quite often per ct and mother. ?? Triggers: lots of people, mod to high stim environments ?? Walking up and downstairs: Ct stated primarily uses elevator, at school. Ct stated during fire drills, ze had to use stairs. Ct stated last fire drill, was unexpected, ze fell as ze went down the stairs and LE went out, once outside, making zer fall to the ground. ?? Triggers: lots of people, mod to high stim environments ?? Stores: ct and mother stated ct has FND weakness which makes zer fall to ground. This occurs every couple of steps, per mother. Ct stated ze uses w/c or motorize cart. ?? Suggestibility: ?? Ct and mothers stated there are ~5-6 girls they know that have tics; mother stated that 2 of thecases seem to be functional tics. ?? Min verbal ed on how symptoms are worse when in environments with other who have tics or functional symptoms. ?? Mod verbal ed on differences between tic disorder's tics and functional tics ?? Ct and mother stated fair verbal understanding of ed. HEP: ?? Talk to psychology about anxiety [...] dog ?? Noise resistant headphone ?? Music Plan: No HEP given this session. Medication Management Problem: IE indicated that ct needs mod vc, multiple times to take one dose. Medication is being kept on microwave near door that ct goes by to leave home. Ct does not recall always correct dose to take of medication. Current status: ?? Ct's mother stated ct needs mod vc, multiple times to take one dose. ?? Medication is being kept on microwave near door that ct goes by to leave home. ?? Ct stated when reviewing medication in session, ze did not recall to take Clonazepam 3x day and is taking it only 1x day. Ct ind stated ze plans to go back to 3x day as ct id it helps with zer anxiety. ?? Mod to max verbal ed on strategies to help increase ind in taking medication independently. ?? Strategies id: ?? Weekly pill box ?? Pill containers with time and dose ?? Placing pills in location ct visits in AM. HEP: ?? Purchase pill box ?? Id location to place pill box [facility] Occupational Performance Measure (COPM): This is a [...] (Store and School): Manage FND LE symptoms 2 Walk stairs in community: (Store and School): Manage FND LE symptoms 2 1 3 Chores: Manage FND LE weakness symptoms 4 Recall CBIT steps to setup CR's: manage vocal and motor tics 5 Eat 2-3 meals and snacks if missed a meal 6 Take medications 7 8 9 10 Initial Evaluation Performance Score: COPM scoring will be completed next session. Initial Evaluation Satisfaction Score: COPM scoring will be completed next session. Education provided this session: Client was educated on: - OT POC for today and next session. Client/family verbalized Fair understanding and shows need for further education/reinforcement. Assessment: Today's session focused on assessing current status, id OT tx needs, evaluating personal goals from CBIT tx, and establishing personal and OT goals for FND. Ct indicates that tic management with CBIT and medication increase has improved and tics are manageable within day to day tasks. Ct and mother did request that OTR review CBIT concepts to assure they know how to ind use program for when tics flair up and cause issues within ze day. FND symptoms, continue to effect ct's day at moderate to high level. Tx plan from 01/06/2021 to 05/30/21 was updated and goals and new OT POC was established this session. Ct will benefit from continued OT services at 1x/wk to improve tic management to facilitate improved success within home and community activities. Goals for Occupational Therapy Intervention (Old tx plan for 01/06/2021 to 05/30/2021) Short Term Goals: 1. Client and caregiver [...] weeks Skilled ed on stress management on 10/01 wk's Skilled ed on tic management strategies [...] 2/2 sessions within session for vocal tics. Achieved (10/10/2021) 6. Client will eat 3 meals a day on 3/4 weeks within 2 months. Continue goal on new POC. (05/30/2021) Snf Goals: 1. Client and caregiver will create and implement a competing response with minimal verbal cues across 2 sessions in 8 weeks. Met on 2/3 sessions Achieved (10/01/2020) 2. Client will use the competing response for each identified tic during functional activities (eating out in community, shopping, and school activities) and in a variety of settings with 80% accuracy in 8 weeks. Using: - punching CR 75-80% of the time on 1/2 sessions - vocal CR 15% of the time on 1/2 sessions Partially Achieved (10/01/2020)) 3. Client will follow through with homework [...] and tic management strategies on 6/[address] ind able to wedding transportation driver's and peers on ze medical conditions and strategies that help zer, 100% of the time. Achieved (10/01/2020) 5. Ct will manage FND symptoms 80% of the time for 3/4 weeks using adaptive strategies within 4 months. Continue goal on new POC. (05/30/2021) Goals for Occupational Therapy Intervention (new POC [...] competing responses within 3 mths. New (10/10/2020) Spinner Cap Frame Goals: Goals Status 1. Ct will walk up or down stairs with management of FND LE weakness symptoms, 70% of the time on 3/4 wk's within 6 mths. New (10/10/2020) 2. Ct will walk in community setting (i.e. store, quaker peer groups, school) with management of FND [...] and Family Start time: 1100 End time: 1210 THCARE REPRESENTATIVE documented in this encounter Plan of Treatment Not on file documented as of this encounter Visit Diagnoses Diagnosis Tic disorder- Primary Tic disorder, unspecified Functional neurological symptom disorder with abnormal movement Anxiety Anxiety state, unspecified documented in this encounter Care Teams Roadmaster Relationship Specialty Start Date End Date Cortney Pineda ORDER PROCESSING MANAGER [address] [facility] [place] [address] PCP - General 06/09/19 Bassem Cho MD [id number] [place] [address] 12/20/18 Vicky Ramachandran OT [address] [place] [address] Occupational Therapist Occupational Therapy 04/19/21 documented as of this encounter
--- OUTSIDE RECORDS SUMMARY | 2024-10-16 03:37 | XMS_ITS | Encounter Summary ---
Author Organization [facility] Address [address] [place] [address] Phone Care Team Providers Care Qa Tech Name Role Phone Bassem Cho MD Unavailable [phone] Cortney Pineda NP Primary Care Provider [phone] Vicky Ramachandran OT Unavailable [phone] Reason for Visit * Reason Comments OT Treatment * Consultation (Routine) - Closed Specialty Diagnoses / Procedures Referred By Contact Referred To Contact Pediatric Occupational Therapy Diagnoses Tic disorder Negrita Pride MD PhD [id number] [place] [address] Phone: tel: fax: [facility] (All Locations) Referral ID Status Reason Start Date Expiration Date V isits Requested Visits Authorized [id number] Closed Specialty Services Required 11/29/2020 12/29/2021 24 24 Encounter Details Date Type Department Care Team (Late st Contact Info) Description 05/04/2021 9:00 AM CDT Therapy [facility] Occupational Therapy [address] [place] [address] Vicky Ramachandran, OT [address] [place] [address] Tic disorder (Primary Dx) Social History Tobacco Use Types Packs/Day Years Used Date Smoking Tobacco: Never Smokeless Tobacco: Never Alcohol Use Standard Drinks/Week Comments No 0 (1 standard drink = 0.6 oz pur e alcohol) Comments No Sex and Gender Information Value Date Recorded Sex Assigned at Not on file 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 01/07/2021 9:24 AM CDT Sexual Orientation Not on file documented as of this encounter Progress Notes * Vicky Ramachandran, OT - 05/04/2021 9:00 AM CDT OT Daily Treatment Note Lexie Gross Anish 2005 Subjective: Ct stated she having an easier time this week catching her punching tic. She id struggling to recall using the vocal CR. Pain: 0/10 (facial pain scale) Objective: Client was seen in clinic setting. [...] - CBIT Competing Response (CR): Punching tic Created CR: Client and family created a CR for punching tic with max verbal, visual, and tactile cues. CR for punching tic: Adduct arms, extend elbows, neutral wrists, extended fingers. Push glenohumeral joint down. HEP CR Practice: Using CR 75-80% of the time successful. - CBIT Awareness: [...] of word HEP Awareness Update: Ct stated she is inconsistently able to catch this tic. HEP: Practice catch my tic activity with a caregiver to id premonitory urge for worm or o worm tic for 3-5 min for 3-4 times a day - CBIT Awareness: Bird Physical Actions for [...] of word HEP Awareness Update: Ct stated she is inconsistently able to catch these tics. Session Awareness Training: Ct stated she has a new tic: I brought you matt, murder, Judas no . HEP: Practice catch my tic activity with a caregiver to id premonitory urge for Murder , I brought you murder and I am going to kill my mom tic for 3-5 min for 3-4 times a day - CBIT Competing Response (CR): Vocal CR [...] or tongue. HEP CR Practice: Using CR 15% of the time as she is struggling to recall to use CR and is struggling to recall the actions of her CR. Practiced CR in Session: Mod verbal and visual ed on steps of vocal CR. CT id during OTR reviewing steps she is using the breathing component but not the writing component. OTR reinforced that ct needs to use all actions of the CR for the CR to be successful. Ct stated fair verbal understanding of ed. HEP: Practice Vocal CR with caregiver to pair CR with bees , bird , worm or o worm , Murder , I brought you murder I am going to kill my mom and I brought you matt, murder, Judas no tics;3-4x/day. If ct becomes more successful pairing ind CR to ze tic then process to a more triggering activity. Tic Management ?? Ct presented with low -mod frequency of vocal tics and physical tics (pointing and arm failing tics). Frequency was within <20-25 vocal and physical tics/ hr at start with FND weakness. Frequency decreased to <5 vocal and physical tics/ hr during session after ct started drawing and had some hot chocolate. . Eating: Ct stated ze did not eat breakfast this AM. OTR offered ct a hot chocolate to drink to helpmanage her nutrition needs. Ct drank <1/4 of the cup and took remaining amount with her. Min verbal ed on importance to eat. Ct stated fair verbal understanding of ed. HEP: ?? Implement use of tic management [...] protect arms from self injurious motor tics - CBIT CR Relief Scale (0/10 not helping manage tics and 10/10 consistently manage tics) - Punching tic CR: 03/10 - worm or o worm tic CR: 02/07 - Murder , I brought you murder and I am going to kill my mom tic CR: 01/08 Tic Symptom Hierarchy Tracker (04/11/2021 - not [...] 13 14 14 16 Date 04/27 05/04 1. Punching 5 Daily (3-5 x/day) 3 Weekly 2. Bees 4 Weekly 1 weaning 3. Kincaid Bees 0 Weaned 1 weaning 4. Copropraxia 5 Daily (4-6 x/day) 4 Weekly 5. Coprolalia 5 Hourly 4 Daily 6. Lateral neck flexion 7 Constant All neck tics pair together 4 Weekly 7. Neck hyperextension 7 Constant All neck tics pair together 4 Weekly All neck tics pair together 8. Neck protraction 7 Constant All neck tics pair together 4 Weekly All neck tics pair together 9. Neck rotation 7 Constant All neck tics pair together 4 Weekly All neck tics pair together 10. I have drugs 0 Weaned 0 Weaned 12. Karate kick 4 Weekly 0 Weaned 12. Fag 4 Weekly 3 Weekly 13. Bees in my edy 0 Weaned 0 Weaned 14 I'm finch, no gender here Changed: gender-related tic 0 Weaned 4 Weekly 15. Worms word/phrase o worm 6 Constant 5 Constant 16. Murder word/phrase I brought you murder , I am going to kill my mom , and I brought you matt, murder, Judas no 5 Constant 4 Constant Tic Distress Monitoring Form (04/11/2021 - not completed as ct struggled to focus and attend to answer questions. Mention of tics also increased tic actions) Tic name/ description How bothersome is it (distress scale) Session # 1 2 3 4 5 6 7 8 Date 02/23 04/18 04/27 8/ Punching Tic: anxiety about punching sister/mother 7 7 6 4 Vocal Word: interferes with talking 6 Vocal Word: some of tics social inappropriate and increase negative attention 7 Education provided this session: Client was educated on: - OT POC for today and next session. Client/family verbalized Fair understanding and shows need for further education/reinforcement. Assessment: Session this week focused ed on CBIT strategies. Ct has progressed with her ability to manage her punching tic 75-80% of the time using her CR. She indicated the CR for CR was less successful as ct struggled to recall steps and to use CR when tics occur. OTR re- ed on steps of vocal CR.Ct understanding of actions increased from low to mod verbal understanding. HEP was issued to practi ce action and try to pair CR to her bees , bird , worm or o worm , Murder , I brought you murder , I am going to kill my mom , I brought you matt, murder, Judas no tics to assess if CR will manage these tics. OTR id that if in next 1-[address] is nit able to use CR successful tx protocol will be shifted to tic applications trainer. Ct will benefit from continued OT services at 1x/wk to improve tic management to facilitate improved success within home and community activities. Goals for Occupational Therapy Intervention Short Term Goals: 1. Client and caregiver will verbally state understanding of client???s right to ADA accommodationswithin school setting and set plan to initiate accommodations in 4 weeks. IEP has been initiated Progressing (01/20/2021) 2. Client will participate in practicing competing response for identified tic for 15 minutes in 3 consecutive sessions in 4 weeks. Lexie independently initiated competing response on 2/3 sessions for 15 min and 1/3 sessions for <15 min. Progression (04/27/2021) 3. Client will increase awareness of their tic disorder and what facilitates and hinders tic management in 4 weeks. Fair verbal awareness on 05/08 weeks Skilled ed on stress management on 10/01 wk's Skilled ed on tic management strategies on 2/2 wk's Progressing (05/04/2021) 4. Client will implement 1-2 adaptive strategies to facilitate management of triggers resulting in increasing management of tic disorder on ?? weeks in 8 weeks. Skilled ed on sensory/emotional/environmental triggers of tics on 4/4 wk's. Progressing (04/11/2021) 5. Client will catch tic at 70% accuracy on 5/7 days per parent report to increase awareness of premonitory urge to facilitate tic management in 4 weeks. Met on 3/4 session for punching tic. Partially met (<40%) on 2/2 sessions within session for vocal tics. Progressing (05/04/2021) 6. Client will eat 3 meals a day on 3/4 weeks within 2 months. 100 % of zero meals, on 2/3 wk's Progressing () Skilled Nursing Goals: 1. Client and caregiver will create [...] punching CR 75-80% of the time on 10/01 sessions - vocal CR 15% of the time on 10/01 sessions Progressing () 3. Client will follow through with homework (awareness ex, practicing competing response) with 80% accuracy weekly for 8 weeks or until tics are resolved as reported by the client and parents within 2 months. Met on 8 sessions. Partially achieved /8 sessions. Progressing () 4. Client will be able to self [...] weeks using adaptive strategies within 4 months. New (12/23/2020) Frequency of OT visits: 1x/wk Duration in weeks: 3-4 months Plan discussed with: Patient and Family Start time: 929 End time: 1003 documented in this encounter Plan of Treatment Not on file documented as of this encounter Visit Diagnoses Diagnosis Tic disorder- Primary Tic disorder, unspecified documented in this encounter Care Teams Qa Tech Relationship Specialty Start Date End Date Cortney Pineda [employer] [address] [facility] [place] [address] PCP - General 06/09/19 Bassem Cho MD [address] [place] [address] [place] [id number] 12/20/18 Vicky Ramachandran OT [address] [place] [address] Occupational Therapist Occupational Therapy 04/19/21 documented as of this encounter
--- OUTSIDE RECORDS SUMMARY | 2024-10-16 03:37 | XMS_ITS | Encounter Summary ---
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 Name Role Phone Bassem Cho MD Unavailable [phone] Cortney Pineda NP Primary Care Provider [phone] Reason for Visit * Reason Comments Respiratory Distress Fever Encounter Details Date Type Department Care Team (Late st Contact Info) Description 06/09/2020 6:00 PM CDT - 06/10/2020 1:06 AM CDT Emergency [facility] [place] [address] Lion Bullard MD [address] [address] Melva Quintana MD [address] [address] Dehydration (Primary Dx); Viral syndrome; Iron deficiency anemia due to chronic blood loss Discharge Disposition: Discharge to home or self care Social History Tobacco Use Types Packs/Day Years Used Date Smoking Tobacco: Never Smokeless Tobacco: Never Alcohol Use Standard Drinks/Week Comments No 0 (1 standard drink = 0.6 oz pur e alcohol) Comments No Sex and Gender Information Value Date Recorded Sex Assigned at Not on file 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 01/07/2021 9:24 AM CDT Sexual Orientation Not on file documented as of this encounter Last Filed Vital Signs Vital Sign Reading Time Taken Comments Blood Pressure 102/61 06/10/2020 1:00 AM CDT Pulse 84 06/10/2020 1:00 AM CDT Temperature 36.5 ??C (97.7 ??F) 06/09/2020 10:56 PM C DT Respiratory Rate 18 06/10/2020 1:00 AM CDT Oxygen Saturation 97% 06/10/2020 1:00 AM CDT Inhaled Oxygen Concentration - - Weight 66.8 kg (147 lb 4.3 oz) 06/09/2020 5:56 P M CDT Height - - Body Mass Index - - documented in this encounter Discharge Diagnoses Diagnosis Dehydration - DEHYDRATION Viral infection, unspecified - VIRAL INFECTION, UNSPECIFIED Iron deficiency anemia secondary to blood loss (chronic) - IRON DEFICIENCY ANEMIA SECONDARY TO BLOOD LOSS (CHRONIC) Encounter for test, result negative - ENCOUNTER FOR TEST, RESULT NEGATIVE Unspecified asthma, uncomplicated - UNSPECIFIED ASTHMA, UNCOMPLICATED Bipolar disorder, unspecified (HCC) - BIPOLAR DISORDER, UNSPECIFIED Bipolar disorder, unspecified Personal history of other diseases of the nervous system and sense organs - PERSONAL HISTORY OF OTHER DISEASES OF THE NERVOUS SYSTEM AND SENSE ORGANS documented in this encounter Discharge Instructions * Discharge Instructions* Autumn Land MD - 06/09/2020 11:44 PM CDT Continue to encourage Lexie to drink plenty of clear fluids to stay well hydrated. You may continue giving over the counter cold medications or tylenol 650mg or ibuprofen 600mg as needed every 6 hours for fever or pain. She likely has a viral illness that her body will fight off in time. We will call you with the results of her mono testing. If she develops severe pain even with medications, persistent nausea and vomiting with signs of dehydration (less urination, dry mouth), difficulty breathing or other concerning symptoms, call your professional security officer, and if he/she cannot see him the same day return to the ER Resume the iron supplements for her anemia. documented in this encounter Medications at Time of Discharge albuterol (PROVENTIL,VENTOL IN) 2.5 mg /3 mL (0.083 %) nebulizer solution Take 3 mL (2.5 mg total) by nebulization every 4 (four) hours as needed for wheezing or shortness of breath albuterol HFA (PROVENTIL HFA,VENTOLIN HFA,PROAIR HFA) 90 mcg/actuation inhaler Inhale 2 puffs every 6 (six) hours as needed for wheezing or shortness of breath ibuprofen (ADVIL,MOTRIN) suspension 100 mg/5 mLIndications:las t dose 1300 Take by mouth every 4 (four) hours as needed for pain clonazePAM (KlonoPIN) 1 mg tablet Take 1 tablet (1 mg total) by mouth 3 (three) times a day Ct stated only taking 1x day and plans to go back to 3x day as ct id it helps with her anxiety. 3 cyproheptadine (PERIACTIN) 4 mg tabletIndications :Migraine with status migrainosus, not intractable, unspecified migraine type Take 0.5 tablets (2 mg total) by mouth 2 (two) times a day 30 tablet 4 05/07/2019 1 divalproex ER (DEPAKOTE ER) 500 mg 24 hr tablet TAKE 2 TABLETS BY MOUTH AT BEDTIME 0 05/29/2018 2 ferrous sulfate elixir 220 mg/5 mL (44 mg/5 mL of elemental iron) Take 5 mL (44 mg of elemental iron total) by mouth daily 150 mL 2 06/09/2020 1 norgestimate-ethi nyl estradiol (ORTHO-CYCLEN) 0.25-35 mg-mcg per tablet Take 1 tablet by mouth daily. 28 tablet 11/15/2018 1 pimozide (ORAP) 2 mg tablet Take 2 mg by mouth 2 (two) times a day 04/29/2019 1 SYMBICORT 160-4.5 mcg/actuation inhaler INL 2 PFS PO BID 1 08/20/2018 07/05/20 2 1 venlafaxine XR (EFFEXOR-XR) 150 mg 24 hr capsule daily 04/28/2019 07/05/20 2 1 documented as of this encounter Ordered Prescriptions Prescription Sig Dispense Quantity Refills Last Filled Start Date End Date ferrous sulfate elixir 220 mg/5 mL (44 mg/5 mL of elemental iron) Take 5 mL (44 mg of elemental iron total) by mouth daily 150 mL 2 06/09/2020 1 documented in this encounter Discharge Disposition Disposition Code Departure Means Destination Discharge to home or self care documented in this encounter ED Notes * Autumn Land MD - 06/09/2020 8:25 PM CDT HPI Chief Complaint Patient presents with ??? Respiratory Distress ??? Fever Lexie is a 14 year-old female with h/o asthma, menorrhagia, migraines, bipolar disorder, and tic disorder, who presents with 3 days of fever to 101, decreased appetite, and malaise. She's been taking otc ibuprofen and tylenol most recently at 1pm today, with some improvement. Started complaining of chest tightness, so she's been using her albuterol 2-3 times per day (last at 1pm today). Patient History Patient Active Problem List Diagnosis Date Noted ??? Migraine 08/23/2019 ??? Tic disorder 08/23/2019 ??? Panic attacks 08/21/2019 ??? Menorrhagia 12/12/2018 ??? Mild persistent asthma 07/19/2018 ??? Anxiety 07/19/2018 ??? Depression 07/19/2018 ??? Bipolar 1 disorder, Anxiety 07/19/2018 Past Medical History: Diagnosis Date ??? Dorsalgia Mid back pain - (Added by TW Conv) ??? Metatarsal fracture ??? Migraines ??? Prematurity 29 weeks Past Surgical History: Procedure Laterality Date ??? NO PAST SURGERIES Family History Problem Relation [...] V Leiden deficiency Maternal Grandmother Social History Tobacco Use ??? Smoking status: Never Smoker ??? Smokeless tobacco: Never Used Substance Use Topics ??? Alcohol use: No ??? Drug use: No Social History Social History Narrative Never a smoker : (Added by TW Conv) No alcohol use : (Added by TW Conv) No illicit drug use : (Added by TW Conv) Student : (Added by TW Conv) Lexie is currently in the 8th grade, goes to public school where she performs very well, although has struggled this quarter due to her recent poor attendance with her presenting illness. She has only a couple of friends at school currently, as her two best friends have recently moved away. She enjoys writing, drawing and horseback ridding. She is generally a very quiet person and has had problems with being made fun or and bullied at school. She lives with her mother, father, 2 sisters and 2 cousins who she sees daily. They have two dogs and two cats. Review of Systems Review of Systems Constitutional: Positive for activity change, appetite change, fatigue and fever. HENT: Negative for congestion, rhinorrhea and sore throat. Eyes: Negative for discharge, redness and visual disturbance. Respiratory: Negative for cough. Cardiovascular: Negative for chest pain and palpitations. Chest tightness Gastrointestinal: Positive for diarrhea and nausea. Negative for abdominal pain, blood in stool andvomiting. Genitourinary: Positive for decreased urine volume. Negative for dysuria. Musculoskeletal: Positive for myalgias. Negative for joint swelling, neck pain and neck stiffness. Skin: Negative for rash. Neurological: Positive for dizziness and headaches. Negative for syncope and numbness. Physical Exam ED Triage Vitals Temp Pulse Resp BP SpO2 06/09/20 1756 06/09/20 1756 06/09/20 1756 06/09/20 17506/09/20 175 37.1 ??C (98.8 ??F) 100 20 101/60 100 % Temp src Heart Rate Source Patient Position BP Location FiO2 (%) 06/09/20 1756 06/09/20 2256 06/09/20225506/09/202255 -- Temporal Monitor Lying Right arm Physical Exam Vitals signs and nursing note reviewed. Constitutional: General: She is not in acute distress. Appearance: She is well-developed. HENT: Head: Normocephalic and atraumatic. Right Ear: Tympanic membrane normal. Left Ear: Tympanic membrane normal. Nose: Nose normal. Mouth/Throat: Mouth: Mucous membranes are dry. Pharynx: Posterior oropharyngeal erythema present. No oropharyngeal exudate. Eyes: Conjunctiva/sclera: Conjunctivae normal. Neck: Musculoskeletal: Normal range of motion and neck supple. No neck rigidity. Cardiovascular: Rate and Rhythm: Normal rate and regular rhythm. Heart sounds: Normal heart sounds. No murmur. Pulmonary: Effort: Pulmonary effort is normal. No respiratory distress. Breath sounds: Normal breath sounds. Abdominal: General: Bowel sounds are normal. There is no distension. Palpations: Abdomen is soft. Tenderness: There is no abdominal tenderness. There is no guarding. Musculoskeletal: Normal range of motion. Lymphadenopathy: Cervical: No cervical adenopathy. Skin: General: Skin is warm and dry. Capillary Refill: Capillary refill takes 2 to 3 seconds. Neurological: General: No focal deficit present. Mental Status: She is alert and oriented to person, place, and time. Mental status is at baseline. MDM Medical Decision Making Differential Diagnosis or Management Options: 14 year-old female presenting with 3 days of fever, decreased appetite, mild diarrhea, and malaise. She appears moderately dehydrated with dry lips and delayed cap refill. She has clear lungs (currently 6 hours from last treatment) and has easy work of breathing. Mild pharyngeal erythema on exam without significant cervical adenopathy. She had rapid strep at OSH that was negative and a COVID test that is pending. No evidence of AOM or CAP on exam. Labs drawn, PIV placed, and NS bolus given. Toradol also given for pain, with significant improvement. CMP unremarkable. CBC showed mild leukopenia with normal ANC. She also has a microcytic anemia that is worse from 11/2018. Pt reports she continues to have heavy menses. She's been prescribed OCP's to help regulate her menses but hasn't been compliant with it due to her oral tics making it difficult to swallow pills at times. She's also not compliant with iron supplements due to GI upset. Will prescribe smaller liquid dose of iron sulfate to help encourage compliance. After NS bolus, pt with improved activity level. She was able to tolerate 2 cans of Gatorade and ate several chavo crackers and granola bars. Symptoms likely related to viral illness compounded by fatigue from anemia. Reassurance provided and discussed supportive care with mother. Return precautions reviewed. Caregiver verbalized understanding and is agreeable with plan and disposition. Final diagnoses: Dehydration Viral syndrome Iron deficiency anemia due to chronic blood loss Autumn Land MD 06/11/20 1201 Cosigned by Lion Bullard MD at 06/15/2020 7:44 AM CDT Associated attestation - Lion Bullard MD - 06/15/2020 7:44 AM CDT I have seen and examined the patient. I agree with the findings and plan of care as documented in the resident's note. * Christina Samuel RN - 06/09/2020 5:53 PM CDT Swabbed for strep - and COVID yesterday. Pts asthma is acting up per Mom. Pt using inhaler 3x today. Pt more sleepy. Drinking less, void 1 time today. Fever 2 days tmax 101. Pt has hx of depressionand has counselor, yes to SI screening but no active plan. documented in this encounter Miscellaneous Notes * ED Pre-Arrival Note - Jia Flores RN - 06/09/2020 4:50 PM CDT Pre-Arrival Note 14 year old sent by PCP with one day of lethargy, chest tightness, decreased intake. Fever yesterday. Seen at Urgent Care last joe. Strep negative, Covid test pending. H/o asthma. Coming POV Jia Flores RN documented in this encounter Plan of Treatment Not on file documented as of this encounter Procedures Procedure Name Priority Date/Time Associated Diagnosis Comments DIFFERENTIAL AUTO STAT 06/09/2020 7:2 7 PM CDT IRON PROFILE W/ IBC Routine 06/09/2020 7 :27 PM CDT CBC WITH AUTO DIFFERENTIAL STAT 06/09/2020 7:27 PM CDT CORBY-ONEILL VIRUS VCA, IGM STAT 06/09/2020 7:27 PM CDT CORBY ONE[place] VIRUS VCA, IGG Routine 06/09/2020 7:27 PM CDT MONONUCLEOSIS SCREEN STAT 06/09/2020 7:27 PM CDT FERRITIN Routine 06/09/2020 7:27 PM CDT COMPREHENSIVE METABOLIC PANEL STAT 06/09/2020 7:27 PM CDT DRUG SCREEN, URINE STAT 06/09/2020 7: 19 PM CDT URINALYSIS AND REFLEX TO MICROSCOPIC STAT 06/09/2020 7:19 PM CDT HCG, URINE, QUALITATIVE STAT 06/09/2020 7:19 PM CDT documented in this encounter Results * (ABNORMAL) Iron profile w/ IBC (06/09/2020 7:27 PM CDT) Iron 18(L) 35 - 145 mcg/dL [facility] TIBC 347 250 - 400 mcg/dL [facility] Transferrin saturation 5(L) 10 - 45 % [facility] Blood specimen (specimen) 06/09/2020 7:27 PM CDT 06/09/2020 11:27 PM CDT us Moo Donovan MD LAB BLOOD ORDERABLES Fi nal Result [facility] [place] [address] * Ferritin (06/09/2020 7:27 PM CDT) Ferritin 65 15 - 150 ng/mL [facility] Blood specimen (specimen) 06/09/2020 7:27 PM CDT 06/09/2020 11:27 PM CDT Moo Donovan MD LAB BLOOD ORDERABLES Fi nal Result [facility] [place] [address] * (ABNORMAL) Differential, auto (06/09/2020 7:27 PM CDT) Pathologist [facility] Neutrophil abs 1.8 1.5 - 9.4 K/cumm [facility] Imm gran abs 0.0 0.0 - 0.2 K/cumm [facility] Lymphocyte abs 1.5 1.0 - 7.2 K/cumm [facility] Monocyte abs 0.3 0.1 - 1.7 K/cumm [facility] Eosinophil abs 0.0(L) 0.1 - 1.6 K/cumm [facility] Basophil abs 0.0 0.0 - 0.3 K/cumm [facility] Neutrophil pct 50.0 % [facility] Comment: Interpretive Data Percent cell count reference ranges are not reported, since discordance with absolute values may lead to misinterpretation of CBC data. Current Interpretive Data was last revised on 2018. Imm gran pct 0.0 % [facility] Comment: Interpretive Data Percent cell count reference ranges are not reported, since discordance with absolute values may lead to misinterpretation of CBC data. Current Interpretive Data was last revised on 2018. Lymphocyte pct 41.6 % [facility] Comment: Interpretive Data Percent cell count reference ranges are not reported, since discordance with absolute values may lead to misinterpretation of CBC data. Current Interpretive Data was last revised on 2018. Monocyte pct 6.8 % [facility] Comment: Interpretive Data Percent cell count reference ranges are not reported, since discordance with absolute values may lead to misinterpretation of CBC data. Current Interpretive Data was last revised on 2018. Eosinophil pct 1.1 % [facility] Comment: Interpretive Data Percent cell count reference ranges are not reported, since discordance with absolute values may lead to misinterpretation of CBC data. Current Interpretive Data was last revised on 2018. Basophil pct 0.5 % [facility] Comment: Interpretive Data Percent cell count reference ranges are not reported, since discordance with absolute values may lead to misinterpretation of CBC data. Current Interpretive Data was last revised on 2018. Blood specimen (specimen) 06/09/2020 7:27 PM CDT 06/09/2020 7:59 PM CDT Autumn Land MD LAB BLOOD ORDERABLES Final Result Performing Organization Address City/State/[facility] Co de Phone Number [facility] Department [place] [address] * Corby-Oneill virus VCA, IgM (06/09/2020 7:27 PM CDT) EBV VCA IgM Negative Negative [facility] Comment: Interpretive Data Results ? Interpretation Negative ?No detectable IgM antibody to EBV-VCA. ?A negative result indicates no current ?infection with EBV. If clinical suspicion ?of acute EBV infection is present, testing ?should be repeated after one week. Equivocal ? If the sample is equivocal, recommend ?repeating the test with a second sample ?within one week. Positive ?A positive test result indicates a current ?or reactivated infection with EBV. Interpretive data revised 12/26/2016. Testing performed by: [facility], [address] [place]., [address] Blood specimen (specimen) 06/09/2020 7:27 PM CDT 06/09/2020 9:45 PM CDT Autumn Land MD LAB BLOOD ORDERABLES Final Result Performing Organization Address [facility] [place] [address] * [place] One[place] virus VCA, IgG (06/09/2020 7:27 PM CDT) [facility] EBV VCA IgG Negative Negative [facility] Comment: Interpretive Data Results ? Interpretation Negative ?No detectable antibody to VCA IgG ?antibody. Equivocal ? Uncertain immune status, suggest ?sending additional sample. Positive ?Indicates the presence of antibody; ?90% of the adult population will ?have been infected with EBV sometime ?in the past. Interpretive data revised 12/26/2016. Testing performed by: [facility], [address] [place]., [address] Blood specimen (specimen) 06/09/2020 7:27 PM CDT 06/09/2020 9:45 PM CDT Autumn Land MD LAB BLOOD ORDERABLES Final Result Performing Organization Address [facility] [place] [address] * Mononucleosis screen (06/09/2020 7:27 PM CDT) [facility] [place] Screen Negative Negative [facility] Comment: Interpretive Data Heterophile antibodies are short-lived. ??Therefore, a positive test is consistent with recent infection. ??Heterophile antibodies fail to develop in 0%-15% of adults and in a higher percentage of children. ??Corby-Oneill virus Serology (IgG and IgM) testing should be performed to exclude disease in patients with a negative antibody test. Current interpretive data was last revised on 2010. Blood specimen (specimen) 06/09/2020 7:27 PM CDT 06/09/2020 7:59 PM CDT us Autumn Land MD LAB BLOOD ORDERABLES Final Result [facility] Department [place] [address] * (ABNORMAL) Comprehensive metabolic panel (06/09/2020 7:27 PM CDT) Sodium 141 135 - 145 mmol/L [facility] Potassium, pl 3.6 3.3 - 4.9 mmol/L [facility] Chloride 113 100 - 114 mmol/L [facility] CO2 23 20 - 30 mmol/L [facility] Anion gap 5 2 - 15 mmol/L [facility] BUN 14 9 - 18 mg/dL [facility] Creatinine 0.50 0.40 - 1.00 mg/dL [facility] Glucose 118 70 - 199 mg/dL [facility] Comment: Interpretive Data Fasting glucose >/= 126 [...] interpretive data was last revised 2017. Calcium 8.9 8.5 - 10.3 mg/dL [facility] Bilirubin, total 0.1 0.1 - 1.2 mg/dL [facility] Protein, pl 6.2(L) 6.5 - 8.5 g/dL [facility] Albumin 3.7 3.2 - 5.0 g/dL [facility] Alk phos 49(L) 70 - 260 Units/L [facility] ALT 11 10 - 40 Units/L [facility] AST 15 10 - 50 Units/L [facility] Blood specimen (specimen) 06/09/2020 7:27 PM CDT 06/09/2020 7:59 PM CDT Autumn Land MD LAB BLOOD ORDERABLES Final Result [facility] [address] [facility] Department [place] [address] * (ABNORMAL) CBC with auto differential (06/09/2020 7:27 PM CDT) WBC 3.7(L) 3.8 - 9.9 K/cumm [facility] Hgb 10.6(L) 11.9 - 15.5 g/dL [facility] Hct 31.8(L) 35.6 - 45.5 % [facility] Plt 312 150 - 400 K/cumm [facility] MPV 9.1 9.1 - 12.3 fL [facility] RBC 3.93 3.90 - 5.20 M/cumm [facility] MCV 80.9(L) 81.3 - 96.4 fL [facility] MCH 27.0(L) 27.1 - 33.3 pg [facility] MCHC 33.3 32.3 - 35.7 g/dL [facility] RDW CV 13.2 11.1 - 14.9 % [facility] RDW SD 39.0 35.7 - 48.1 fL [facility] NRBC abs 0.00 0.00 - 0.01 K/cumm [facility] Blood specimen (specimen) 06/09/2020 7:27 PM CDT 06/09/2020 7:59 PM CDT Autumn Land MD LAB BLOOD ORDERABLES Final Result Performing Organization Address City/[facility]/[place] [address] * hCG, urine, qualitative (06/09/2020 7:19 PM CDT) HCG, ur Negative Negative [facility] Urine 06/09/2020 7:19 PM CDT 06/09/2020 10:28 PM CDT Autumn Land MD LAB URINE ORDERABLES Final Result Performing Organization Address [facility] [place] [address] * (ABNORMAL) Drug screen, urine (06/09/2020 7:19 PM CDT) Drug screen, ur Positive(A) [facility] Comment: The following compounds were detected: 7-aminoclonazepam Repeated and verified. Commiss[employer] Helper review to follow. Interpretive Data This test detects the presence of approximately 50 substances using LC-tandem mass spectrometry. For a list of specific compounds and detection limits refer to the Lab Test Guide Book. While this technique is highly specific, false-positive and false-negative findings may occur in very rare circumstances. Contact the Commissary Hel[employer] salon professional ([phone]) for consultation if needed. This test was developed and its performance characteristics determined by [facility]. It has not been cleared or approved by the U.S. Food and Drug Administration. Current interpretive data was last revised 2016. Director Review Verified [facility] Comment:Upon Medical Directo r review, no additional compounds were detected. Urine 06/09/2020 7:19 PM CDT 06/09/2020 10:28 PM CDT Autumn Land MD LAB URINE ORDERABLES Final Result Performing Organization Address [facility] [place] [address] * (ABNORMAL) Urinalysis reflex to microscopic (06/09/2020 7:19 PM CDT) Color, ur Yellow Yellow [facility] Clarity, ur Clear Clear [facility] Specific gravity, ur 1.024 1.010 - 1.025 [facility] pH, urine 7.0 [facility] Protein, ur ql Negative Negative [facility] Glucose, ur ql Negative Negative [facility] Ketones, ur Negative Negative [facility] Bilirubin, ur Negative Negative [facility] Blood, ur Negative Negative [facility] Urobilinogen, ur 2.0(A) <2.0 mg/dL [facility] Nitrite, ur Negative Negative [facility] Leukocyte esterase, ur Negative Negative [facility] UA reflex comment Reflex conditions for microscopic UA not met. [facility] Urine 06/09/2020 7:19 PM CDT 06/09/2020 10:28 PM CDT Narrative [facility] - 06/09/2020 10:32 PM CDT ?? Urine pH is affected by diet, medications, systemic acid-base disturbances, and renal tubular function. ??pH may affect urinary stone formation. ??For example, urine pH below 6.0 may help reduce the tendency for calcium phosphate stones and pH greater than 6.0 may reduce the tendency for uric acid stone formation. Source: [facility]. Last revised 10-11-2017 us Autumn Land MD LAB URINE ORDERABLES Final Result [facility] Department [place] [address] documented in this encounter Visit Diagnoses Diagnosis Dehydration- Primary Viral syndrome Unspecified viral infection, in conditions classified elsewhere and of unspecified site Iron deficiency anemia due to chronic blood loss Iron deficiency anemia secondary to blood loss (chronic) documented in this encounter Administered Medications Inactive Administered Medications - up to 3 most recent administrations Medication Order MAR Action Action Date Dose Rate Site dextrose 5% and sodium chloride 0.9% infusion (premix) 100 mL/hr, intravenous, Continuous, Starting on Sun06/09/20 at 2130 New Bag 06/09/2020 10:24 PM CDT 100 mL/hr 100 mL/hr ketorolac (TORADOL) 15 mg/mL injection 30 mg 30 mg, intravenous, Administer over 5 Minutes, Once, On Sun06/09/20 at 1837, For 1 dose Given 06/09/2020 7:49 PM CDT 30 mg lidocaine 1% buffered injection 0.1 mL 0.1 mL, subcutaneous, Once, On Sun06/09/20 at 1836, For 1 dose, Maximum daily dose 0.1 mL/kg, Administer immediately prior to procedure. Given 06/09/2020 7:50 PM CDT 0.1 mL Other (Comment) sodium chloride 0.9% bolus 1,000 mL 1,000 mL, intravenous, Once, On Sun06/09/20 at 1836, For 1 dose, Maximum dose = 1000 mL New Bag 06/09/2020 7:30 PM CDT 1,000 mL documented in this encounter Historical Medications * This list may reflect changes made after this encounter. ibuprofen (ADVIL,MOTRIN) suspension 100 mg/5 mLIndications:las t dose 1300 Take by mouth every 4 (four) hours as needed for pain added in this encounter Active and Recently Administered Medications Times are shown in CDT. Scheduled Medication Order 06/08/2020 06/09/2020 06/10/2020 ketorolac (TORADOL) 15 mg/mL injection 30 mg (COMPLETED) 30 mg, intravenous, Administer over 5 Minutes, Once, On Sun06/09/20 at 1837, For 1 dose 1949 (Given - Provider: Antonio Bradley RN) lidocaine 1% buffered injection 0.1 mL (COMPLETED) 0.1 mL, subcutaneous, Once, On Sun06/09/20 at 1836, For 1 dose, Maximum daily dose 0.1 mL/kg, Administer immediately prior to procedure. 1950 (Given - Provider: Antonio Bradley RN - Comment: L foerearm) sodium chloride 0.9% bolus 1,000 mL (COMPLETED) 1,000 mL, intravenous, Once, On Sun06/09/20 at 1836, For 1 dose, Maximum dose = 1000 mL 1930 (New Bag - Provider: Delmer Bradley RN)2100 (Stopped - Provider: Antonio Bradley RN) Continuous Medication Order 06/08/2020 06/09/2020 06/10/2020 dextrose 5% and sodium chloride 0.9% infusion (premix) 100 mL/hr, intravenous, Continuous, Starting on Sun06/09/20 at 2130 2224 (New Bag - Provider: Delmer Bradley, JERRY)2358 (Stopped - Provider: Antonio Bradley, JERRY) documented in this encounter Orders Lab Orders Without Results Count Last Ordered D ate First Ordered Date FERRITIN 06/09/2020 IRON PROFILE W/ IBC 1 06/09/2020 IV Count Last Ordered Date First Orde red Date INSERT PERIPHERAL IV 1 06/09/2020 documented in this encounter Care Teams Board Lining Machine Operator Relationship Specialty Start Date End Date Cortney Pineda NP [address] [facility] [place] [address] PCP - General 06/09/19 Bassem Cho MD [id number] [facility] [address] [place] [address] 12/20/18 documented as of this encounter
--- OUTSIDE RECORDS SUMMARY | 2024-10-16 03:37 | XMS_ITS | Encounter Summary ---
Author Organization [facility] Address [address] [place] [address] Phone Care Team Providers Care Collar Fuser Name Role Phone Bassem Cho MD Unavailable [phone] Cortney Pineda NP Primary Care Provider Reason for Visit * Reason Comments OT Treatment * Consultation (Routine) - Closed Specialty Diagnoses / Procedures Referred By Contact Referred To Contact Pediatric Occupational Therapy Diagnoses Tic disorder Negrita Pride MD PhD [id number] [place] [address] Phone: tel: fax: [facility] (All Locations) Referral ID Status Reason Start Date Expiration Date V isits Requested Visits Authorized [id number] Closed Specialty Services Required 11/29/2020 12/29/2021 24 24 Encounter Details Date Type Department Care Team (Late st Contact Info) Description 01/12/2021 2:00 PM CDT Therapy [facility] Occupational Therapy [address] [place] [id number] Vicky Ramachandran, OT [address] [place] [address] Tic disorder (Primary Dx) Social History Tobacco Use Types Packs/Day Years Used Date Smoking Tobacco: Never Smokeless Tobacco: Never Alcohol Use Standard Drinks/Week Comments No 0 (1 standard drink = 0.6 oz pur e alcohol) Comments No Sex and Gender Information Value Date Recorded Sex Assigned at Not on file 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 01/07/2021 9:24 AM CDT Sexual Orientation Not on file documented as of this encounter Progress Notes * Vicky Ramachandran, OT - 01/12/2021 2:00 PM CDT OT Daily Treatment Note Lexie Gross Anish 2005 Subjective: Ct's mother stated father is not understanding how ct can suppress her tics but not allthe time. Pain: 0/10 (facial scale) Objective: Client was seen in clinic setting with her mother and her sister. No change in medical status stated. OTS present in session . - Punching tic CBIT Awareness Physical Actions for punching tic: R finger flex, R sh ER or IR, R sh abd to hit back of another person head, neck, or back. Premonitory Urge for punching tic: No urge id HEP Awareness Update: no HEP last session Session Awareness Training: Mod verbal and visual prompts to id actions of punching tic using 2 video's attained. Skilled ed on importance of assessing actions again to assure consistency of actions.Ct and mother ed on how assess tic using functional assessment form in manual. Ct and mother statedfair verbal understanding of ed. HEP: Video tape punching tic to id actions next session, 3-4 times for 1 min. - Tic Environmental Management: Skilled Education regarding neural connections of her tics. Mod visual and verbal education was used to discuss brain area, synapsis connections, and myelination. Client stated fair verbal understanding of education and mother fair verbal understanding. Tic Symptom Hierarchy Tracker Tics are rated by client to determine which tics are interfering the most in daily activities. SUDSrating is a scale of 0-10 (0 not bothering me and 10 significantly bothersome) with client and caregiver rating tics for past week. Tic Symptoms SUDS Rating Session # 1 2 3 4 5 6 7 8 Date 01/12 1. Punching 7 Hourly 2. Bees 5 Constant 3. Kincaid Bees 5 Constant 4. Copropraxia 3 Constant 5. Coprolalia 4 Constant 6. Lateral neck flexion 6 Daily 7. Neck hyperextension 6 Daily 8. Neck protraction 6 Daily 9. Neck rotation 7 Daily 10. I have drugs 10 Around law enforcement, weekly 12. Karate kick 4 weekly 12. Fag 5 Daily, in response to sibling 13. Bees in my edy 8, Daily 14 I'm finch, no gender here 10, weekly (2-3 times a week) Behavior rating Inventory of Executive Function (BRIEF- SR) - Self Report Form BRIEF - SR is a structured self report questionnaire for adolescents and teens ages 11 through 18 years of age to access executive function and behavorial regulation. Scores are broken into two indexes: Behavioral Regulation Index and Metacognition Index and indexes are combined to form Global Executive Composite. T scores and Percentile scores are within average norm at (50-60) and clinically elevated (above 60). Standardized norms are used to compare the child's scores to those of his/her peers of the same age. Scale T Score Percentile Inhibit 68 95 Shift 83 99 Emotional Control 82 99 Monitor 67 95 Working Memory 80 99 Plan/Organize 85 99 Organization of Materials 73 98 Task Completion 73 98 Client's Scale scores are 1.5-2 standards above average in Inhibit and Self- Monitor and above 2 deviations in Organization of Materials, Shift, Emotional Control, Task Completion, Working Memory and Plan/Organize . Scores indicate client is and will struggles with task involving having to monitor and inhibit one's body actions and emotions, initiate tasks, use past information to do current tasks, plan tasks, organize supplies for tasks, shift between tasks and and monitor changes to plans for tasks. Index T Score Percentile Behavioral Regulation Index 82 99 Scio Cogntion Index 83 99 Behavorial Shift 86 99 Cognitive Regulation Index 74 99 Client's Index scores are above 2 deviations in Behavioral Regulation Index and Scio Cognition Index. Client's Shift score are above 2 standard deviations in Behavorial and Cognitive Shifts. Composite T Score Percentile Global Executive Composite 85 99 Client's Composite score is above 2 deviations compared to peers within her age range norm group. Sensory Profile (Adolescent/Adult) Self Questionnaire Sensory Profile (Adolescent/Adult) Self Questionnaire is a structured questionnaire that a teen or adult completes to help indicate a client's sensory strengths and weakness that are within daily home and community activities. The questionnaire has sections with questions related to each sense (auditory, visual, touch, movement, and oral) and activity level. Each section's questions are rated on 5 point scale (almost always to almost never). Scores of each section form Sensory and Behavorial Scores. Questions are then divide into a quadrant grid to form the Quadrant scores. OTR through assessing information on questionnaire and talking to family interrupts information to form the client's sensory profile. Form Completed by: Client Taste/Smell Processing: Mild concerns: Ct stated she prefers to add spice to food. Movement Processing: Mild to moderate concerns: avoids heights, likes feel of dancing and running, and poor awareness of body in space as bumps into things and gets dizzy when bending over or gettingup too fast. Visual Processing: Moderate concerns: Avoids daylight puts shades down in room, misses street, building, or room signs, bothered by fast moving images on TV or movies, frustrated to locate items in crowded drawer or messy room, and does notice when someone enters room. Touch Processing: Moderate concerns: Tactile sensitivity to back rubs, wear gloves or avoid tasks that make hands dirty, certain clothing textures she avoids, and avoids certain food textures. Ct mentioned she does not like standing near others. This needs to be assesses to determine if this is dueto tactile defensiveness or her fear that UE tics will harm others. Activity Level: Mild to moderate concerns: Avoids activities she has to do in front of others, struggles to concentrate for the whole time in a class or meeting, struggles to get self going in the AM, prefers routine tasks, and prefers to be by herself. Auditory Processing: Moderate concerns: Hypersensitive to noise and often misses inforrmaton and asks people to repeat themselves, Quadrants Raw Score Low Registration 49/75 More than Others Sensation Seeking 45/75 Just Like the Majority of Others Sensory Sensitivity 61/75 Much More than Others Sensation Avoiding 59/75 Much More than Others Client's Sensory Profile indicates he scored more than others in Avoiding, Sensitivity and Registration quadrants. Avoiding/Avoider is a person who moves away from sensory input at a higher rate than other people. This means that person hits their threshold of input faster than others and is easily over stimulated causing the person to have a difficult time interacting within his/her home and community. The client's profile indicated he reacts strongly to noises, is unproductive in noisy environments, is bothered by bright light, becomes emotional when touched, his/her fears interfere with completing tasks,participates less than other people in groups, has trouble making and maintaining friendships, often appears stubborn and uncooperative, avoids eye contact, likes routine, and is sensitive and requires emotional support. Sensitivity/Sensor is a person who notices sensory input at higher rate than other people. The client's profile indicated he/she is often distracted by noise or things moving around in the room, struggles to do tasks when noise is present, gets lost easily, prefers to work in low light, is distressed by grooming activities, anxious when in line with other's close by, reacts strongly to tastes or food textures, struggles to interrupt body language, seems to tune out people, and requires more protection than other people. Registration/Bystander is a person who misses sensory input at higher rate than other people. The client's profile indicated he/she is often has weak muscles, easily fatigued, props self up with hands or wall, clings on objects or people, walks loudly, is unaware of pain, unaware of temperature, does not notice hands are dirty, loses balance unexpectedly, bumps into things, moves stiffly, wastes time, rushes through writing activities, stares intensely at objects, misses eye contact, unaware ofthe activity, and has difficulty finding things that have a competing background (ie: pencil in a drawer). Education provided this session: Client and Mother were educated on: - OT POC for today and next session. - Adult/Adolescent Sensory Profile and BRIEF Self Report how to complete assessment and benefit on POC. Client/family verbalized Fair understanding and shows need for further education/reinforcement. Assessment: Session this week focused ed on assessing executive dysfunction, sensory processing, CBIT program steps, and initiating CBIT awareness step with her punching tic. BRIEF - SR indicated ct is struggling to shift one's actions, self regulate during tasks, plan and organize tasks, use her working memory, and complete tasks. Scores indicate that OTR will have to use strategies to help withmemory and organization. Sensory Profile indicated ct has tactile and auditory sensitivity issues. OTR will monitor if these sensitivities need to be addressed as they could be triggers for her tics.Ct's mother was able to attain two videos of her punching tic which assisted OTR in ed ct and her mother on how to assess tic's actions. Alana and mother both showed understanding of ed but would benefit from further ed to master concepts.Client will benefit from continued OT services at 1x/wk to improve tic management to facilitate improved success within home and community activities. Goals for Occupational Therapy Intervention Short Term Goals: 1. Client and caregiver will verbally state understanding of client???s right to ADA accommodationswithin school setting and set plan to initiate accommodations in 4 weeks. Initiating 504/IEP accommodations with school meeting this week. Progressing (01/06/2021) 2. Client will participate in practicing competing response for identified tic for 15 minutes in 3 consecutive sessions in 4 weeks. New (12/23/2020) 3. Client will increase awareness of her tic disorder and what facilitates and hinders tic management in 4 weeks. Progressing (01/12/2021) 4. Client will implement 1-2 adaptive strategies to facilitate management of triggers resulting in increasing management of tic disorder on ?? weeks in 8 weeks. New (12/23/2020) 5. Client will catch tic at 70% accuracy on 5/7 days per parent report to increase awareness of premonitory urge to facilitate tic management in 4 weeks. New (12/23/2020) 6. Client will eat 3 meals a day on 3/4 weeks within 2 months. New (12/23/2020) Jail Goals: 1. Client and caregiver will create and implement a competing response with minimal verbal cues across 2 sessions in 8 weeks. New (12/23/2020) 2. Client will use the competing response for each identified tic during functional activities (eating out in community, shopping, and school activities) and in a variety of settings with 80% accuracy in 8 weeks. New (12/23/2020) 3. Client will follow through with homework (awareness ex, practicing competing response) with 80% accuracy weekly for 8 weeks or until tics are resolved as reported by the client and parents within 2 months. Met on 10/01 wks. Progressing (01/12/2021) 4. Client will be able to self -advocate for herself through short speech stating a definition of her tic disorder and what others can do to help manage her tics in 6 weeks. Progressing (01/12/2021) 5. Ct will manage FND symptoms 80% of the time for 3/4 weeks using adaptive strategies within 4 months. New (12/23/2020) Plan to further assess: -Sensory Screener - Cognitive Screener Frequency of OT visits: 1x/wk Duration in weeks: 3-4 months Plan discussed with: Patient and Family Start time: 1403 End time: 1508 documented in this encounter Plan of Treatment Not on file documented as of this encounter Visit Diagnoses Diagnosis Tic disorder- Primary Tic disorder, unspecified documented in this encounter Care Teams Collar Fuser Relationship Specialty Start Date End Date Cortney Pineda, RESIDENTIAL DIRECTOR [address] [facility] [place] [address] PCP - General 06/09/19 Bassem Cho MD [address] [facility] [place] [address] 12/20/18 documented as of this encounter
--- OUTSIDE RECORDS SUMMARY | 2024-10-16 03:37 | XMS_ITS | Encounter Summary ---
Author Organization [facility] Address [address] [place] [address] Phone Care Team Providers Care Welfare Project Manager Name Role Phone Bassem Cho MD Unavailable [phone] Cortney Pineda NP Primary Care Provider [phone] Reason for Visit * Reason Comments OT Treatment * Consultation (Routine) - Closed Specialty Diagnoses / Procedures Referred By Contact Referred To Contact Pediatric Occupational Therapy Diagnoses Tic disorder Negrita Pride MD PhD [id number] [place] [address] Phone: tel: fax: [facility] (All Locations) Referral ID Status Reason Start Date Expiration Date V isits Requested Visits Authorized [id number] Closed Specialty Services Required 11/29/2020 12/29/2021 24 24 Encounter Details Date Type Department Care Team (Late st Contact Info) Description 01/20/2021 2:00 PM CDT Therapy [facility] Occupational Therapy [address] [place] [id number] Vicky Ramachandran, OT [address] [place] [address] Tic disorder (Primary Dx) Social History Tobacco Use Types Packs/Day Years Used Date Smoking Tobacco: Never Smokeless Tobacco: Never Alcohol Use Standard Drinks/Week Comments No 0 (1 standard drink = 0.6 oz pur e alcohol) Comments No Sex and Gender Information Value Date Recorded Sex Assigned at Not on file 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 01/07/2021 9:24 AM CDT Sexual Orientation Not on file documented as of this encounter Progress Notes * Bobo Tanya, BS - 01/20/2021 2:00 PM CDT OT Daily Treatment Note Lexie Oconnell 2005 Subjective: Ct reported tics being less frequent since previous session. Pain: 0/10 (facial scale) Objective: Client was seen in clinic setting with her mother, for the last 10 minutes of session. No change in medical status stated. OTS present in session . - Punching tic CBIT Awareness Physical Actions for punching tic: R finger flex, R sh ER or IR, R sh abd to hit back of another person head, neck, or back. Premonitory Urge for punching tic: No urge id HEP Awareness Update: Ct reported that due to tics being less frequent, they were unable to video punching tic. Session Awareness Training: Skilled ed on importance of assessing actions again to assure consistency of actions. Due to ct reported improvement of punching tic, moderate prompting given to encouragect to ID a new tic to begin awareness training on. With moderate verbal encouragement, ct selected mooney bees tic. Ct and mother stated fair verbal understanding of ed. HEP: Video tape punching tic or mooney bees or punching tic, which ever tic is more frequent, to id actions next session, 3-4 times for 1 min. Plan to decide which of the 2 tics is occurring more frequently, and video that tic. - Tic Environmental Management: Moderate skilled education regarding triggers for tics. Moderate prompting to assist ct to identify sensory triggers within household tasks. Moderate skilled educationgiven to explain sensory triggers for tics and ct results from sensory profile. Ct verbalized good understanding of education. After education, ct created a plan with moderate verbal cueing to is adaptive strategies to trial managing sensory triggers during the IADL task of doing the dishes. - Executive Functioning: Discussed results of BRIEF 2- SR with ct. Assessment indicated that ct is outside the norm for executive functioning skills for ct's age. Through motivational interviewing, ct revealed that she believes she struggles to follow through with HEP and ADL tasks due to difficulties with memory. Moderate skilled education given on various memories strategies at this time. Ct expressed interest in continuing to address executive functioning as it relates to CBIT program. Throughout session, ct benefited from moderate prompting to stay on task. Tic Symptom Hierarchy Tracker Tics are rated by client to determine which tics are interfering the most in daily activities. SUDSrating is a scale of 0-10 (0 not bothering me and 10 significantly bothersome) with client and caregiver rating tics for past week. Tic Symptoms SUDS Rating Session # 1 2 3 4 5 6 7 8 Date 01/12 01/20 1. Punching 7 Hourly 2 Weekly (1- 2x) 2. Bees 5 Constant 6 Hourly 3. Mooney Bees 5 Constant 7 Hourly 4. Copropraxia 3 Constant 5 Daily 5. Coprolalia 4 Constant 7 Hourly 6. Lateral neck flexion 6 Daily 6 Daily (7-8x) 7. Neck hyperextension 6 Daily 4 Weekly (3x) 8. Neck protraction 6 Daily 2 Weekly 9. Neck rotation 7 Daily 4 Weekly (3x) 10. I have drugs 10 Around law enforcement, weekly 0 No opportunity this week 12. Karate kick 4 weekly 0 Weaned 12. Fag 5 Daily, in response to sibling 5 Weekly (3x) 13. Bees in my edy 8, Daily 0 Weaned 14 I'm finch, no gender here 10, weekly (2-3 times a week) 10 Weekly Education provided this session: Client and Mother were educated on: - OT POC for today and next session. - Results of Sensory Profile and BRIEF SR - Memory strategies - Strategies to cope with sensory triggers Client/family verbalized Fair understanding and shows need for further education/reinforcement. Assessment: Session this week focused ed on initiating CBIT awareness training including managing triggers of tics. Due to the ct reporting that her punching tic has significantly improved, OTS adjusted plan to begin CBIT process for a new tic that is interfering more with her ADLs and IADLs. OTS provided moderate prompting to assist ct in identifying a tic to work on, and assigned HEP to begin the process of video taping the tic to analyze the actions. Results of Sensory Profile and BRIEF- SR discussed with ct to increase insight into deficits. Memory strategies were discussed with ct to increase follow through with CBIT program. Moderate skilled education provided on sensory triggers for t ics, and ct created plan to manage sensory triggers during one I-ADL tasks. Plan to continue to address executive functioning and sensory management as it relates to participation in the CBIT program. Client will benefit from continued OT services at [...] in 4 weeks. Fair verbal awareness on 10/01 weeks Progressing (01/20/2021) 4. Client will implement 1-2 adaptive strategies to facilitate management of triggers resulting in increasing management of tic disorder on ?? weeks in [address] plan to manage sensory trigger on 10/01 sessions. Progressing (01/20/2021) 5. Client will catch tic at 70% accuracy on 5/7 days per parent report to increase awareness of premonitory urge to facilitate tic management in 4 weeks. New (12/23/2020) 6. Client will eat 3 meals a day on 3/4 weeks within 2 months. New (12/23/2020) [facility] Goals: 1. Client and caregiver will create [...] manage her tics in 6 weeks. Progressing (01/20/2021) 5. Ct will manage FND symptoms 80% of the time for 3/4 weeks using adaptive strategies within 4 months. New (12/23/2020) Plan to further assess: - Needs relating to executive functioning - Sensory needs and triggers Frequency of OT visits: 1x/wk Duration in weeks: 3-4 months Plan discussed with: Patient and Family Start time: 1402 End time: 15:08 documented in this encounter Plan of Treatment Not on file documented as of this encounter Visit Diagnoses Diagnosis Tic disorder- Primary Tic disorder, unspecified documented in this encounter Care Teams Welfare Project Manager Relationship Specialty Start Date End Date Cortney Pineda AUTOMOBILE MECHANIC SUPERVISOR [address] [place] [address] PCP - General 06/09/19 Bassem Cho MD [address] [place] [id number] 12/20/18 documented as of this encounter
--- OUTSIDE RECORDS SUMMARY | 2024-10-16 03:37 | XMS_ITS | Encounter Summary ---
Author Organization [facility] Address [address] [place] [address] Phone Care Team Providers Care Engineering Instructor Name Role Phone Bassem Cho MD Primary Care Provider Bassem Cho MD Unavailable [phone] Encounter Details Date Type Department Care Team (Late st Contact Info) Description 05/12/2019 Telephone [facility] Pediatric Neurology [facility] 2[address] [place] [address] [place] [address] Radha Minor MA Social History Tobacco Use Types Packs/Day Years Used Date Smoking Tobacco: Never Smokeless Tobacco: Never Alcohol Use Standard Drinks/Week Comments No 0 (1 standard drink = 0.6 oz pur e alcohol) Comments Unknown Sex and Gender Information Value Date Recorded Sex Assigned at Not on file 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 01/07/2021 9:24 AM CDT Sexual Orientation Not on file documented as of this encounter Miscellaneous Notes * Telephone Encounter - Radha Minor MA - 05/12/2019 3:36 PM CDT EEG on 06/09 at 11am. Mom aware of both appts. * Telephone Encounter - Radha Minor MA - 05/12/2019 3:36 PM CDT ----- Message from Linda Antony sent at 05/12/2019 3:35 PM CDT ----- Regarding: MRI Scheduled 06/09/19 1:30 arrive at 1:00 for a mri brain w/o at [facility]. S/w Radha over the phone. Thanks documented in this encounter Plan of Treatment Not on file documented as of this encounter Visit Diagnoses Not on filedocumented in this encounter Care Teams Engineering Instructor Relationship Specialty Start Date End Date Bassem Cho MD [address] [place] [address] PCP - General Pediatrics 12/20/18 06/08/19 Bassem Cho MD [address] [place] [address] 12/20/18 documented as of this encounter
--- OUTSIDE RECORDS SUMMARY | 2024-10-16 03:37 | XMS_ITS | Encounter Summary ---
Author Organization [facility] Healthcare Address [address] [place] [address] Care Team Providers Care Project Developer Name Role Phone Bassem Cho MD Primary Care Provider Reason for Visit * Reason Comments Heavy Menstruation Encounter Details Date Type Department Care Team (Late st Contact Info) Description 11/15/2018 11:56 AM CHEF DE CUISINE - 11/15/2018 4:00 PM CHEF DE CUISINE Emergency [facility] [place] [address] Autumn Land MD [address] [place] [address] [address] [place] [address] Menorrhagia with irregular cycle (Primary Dx) Discharge Disposition: Discharge to home or self care Social History Tobacco Use Types Packs/Day Years Used Date Smoking Tobacco: Never Smokeless Tobacco: Never Alcohol Use Standard Drinks/Week Comments No 0 (1 standard drink = 0.6 oz pur e alcohol) Comments Unknown Sex and Gender Information Value Date Recorded Sex Assigned at Not on file Legal Sex Female 6:43 AM CHEF DE CUISINE Gender Identity . 01/07/2021 9:24 AM CDT Sexual Orientation Not on file documented as of this encounter Last Filed Vital Signs Vital Sign Reading Time Taken Comments Blood Pressure 106/66 11/15/2018 3:58 PM CHEF DE CUISINE Pulse 91 11/15/2018 3:58 PM CHEF DE CUISINE Temperature 36.6 ??C (97.9 ??F) 11/15/2018 11:[address] Respiratory Rate 20 11/15/2018 3:58 PM CHEF DE CUISINE Oxygen Saturation 100% 11/15/2018 3:58 PM CHEF DE CUISINE Inhaled Oxygen Concentration - - Weight 67.6 kg (149 lb 0.5 oz) 11/15/2018 11:18 AM CHEF DE CUISINE Height - - Body Mass Index - - documented in this encounter Discharge Instructions * Discharge Instructions* Autumn Land MD - 11/15/2018 3:34 PM CHEF DE CUISINE Take 1 pill three times daily (morning, noon, evening) for 3 days, then 1 pill twice daily (morningand evening) for 2 days, then once daily until bleeding stops. Take zofran every 8 hours as needed for nausea. 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 Continue ibuprofen every 6 hours as needed for cramping. Bring her back to the emergency room if she develops worsening symptoms, dizziness/fainting, or if any new concerns arise. DE CUISINE * Attachments The following attachments cannot be sent through Care Everywhere. * Heavy Menstrual Bleeding (Finnish) documented in this encounter Medications at Time of Discharge albuterol (PROVENTIL,VENTOLIN ) 2.5 mg /3 mL (0.083 %) nebulizer solution Take 3 mL (2.5 mg total) by nebulization every 4 (four) hours as needed for wheezing or shortness of breath albuterol HFA (PROVENTIL HFA,VENTOLIN HFA,PROAIR HFA) 90 mcg/actuation inhaler Inhale 2 puffs every 6 (six) hours as needed for wheezing or shortness of breath ferrous sulfate 325 mg (65 mg of elemental iron) tabletIndications:I liz Deficiency Anemia Take 1 tablet (325 mg total) by mouth daily. 30 tablet 2 9 02/14/20 19 buPROPion XL (WELLBUTRIN XL) 300 mg 24 hr tablet Take 300 mg by mouth every morning. 1 8 05/07/20 19 clonazePAM (KlonoPIN) 1 mg tablet Take 1 tablet (1 mg total) by mouth 3 (three) times a day Ct stated only taking 1x day and plans to go back to 3x day as ct id it helps with her anxiety. 08/27/20 23 divalproex ER (DEPAKOTE ER) 500 mg 24 hr tablet TAKE 2 TABLETS BY MOUTH AT BEDTIME 0 8 10/19/19 22 nabumetone (RELAFEN) 500 mg tablet Take 500 mg by mouth 2 (two) times a day. 05/07/20 19 norgestimate-ethiny l estradiol (ORTHO-CYCLEN) 0.25-35 mg-mcg per tablet Take 1 tablet by mouth daily. 28 tablet 9 07/05/20 21 ondansetron ODT (ZOFRAN-ODT) 4 mg disintegrating tablet Take 1 tablet (4 mg total) by mouth every 8 (eight) hours as needed for nausea or vomiting. 10 tablet 9 05/07/20 19 SYMBICORT 160-4.5 mcg/actuation inhaler INL 2 PFS PO BID 1 8 07/05/20 21 traZODone (DESYREL) 100 mg tablet Take 100 mg by mouth nightly. at bedtime. 1 9 05/07/20 19 documented as of this encounter Ordered Prescriptions Prescription Sig Dispense Quantity Refills Last Filled Start Date End Date norgestimate-ethinyl estradiol (ORTHO-CYCLEN) 0.25-35 mg-mcg per tablet Take 1 tablet by mouth daily. 28 tablet 11/15/2018 1 ondansetron ODT (ZOFRAN-ODT) 4 mg disintegrating tablet Take 1 tablet (4 mg total) by mouth every 8 (eight) hours as needed for nausea or vomiting. 10 tablet 11/15/2018 9 ferrous sulfate 325 mg (65 mg of elemental iron) tabletIndications:Ir on Deficiency Anemia Take 1 tablet (325 mg total) by mouth daily. 30 tablet 2 11/15/2018 9 norethindrone ac-eth estradiol (LOESTRIN 10/20, ,) 1-20 mg-mcg per tablet Take 1 tablet by mouth daily. 21 tablet 1 11/15/2018 9 documented in this encounter Discharge Disposition Disposition Code Departure Means Destination Discharge to home or self care documented in this encounter ED Notes * Autumn Land MD - 11/15/2018 1:17 PM CST HPI Chief Complaint Patient presents with ??? Heavy Menstruation 13yo female with h/o menorrhagia, here with heavy periods. Using both super pad and tampon with full saturation every 3-4 hours for the last 4 days. Feeling dizzy and lightheaded with ambulation. No n/v, diarrhea, constipation, headache, or palpitations. Menarche at 8 years. Always heavy flow, cramping. Previously on moninessa and had better controlledperiods. Took it for about 1 year. Reports she tried multiple other OCP's prior to this one that failed to manage her symptoms. Discontinued about 1 year ago due to insurance issues. Admitted 1 year ago for similar symptoms. Had extensive heme work-up that was negative. She has multiple family members with Factor V Leiden deficiency, but states she had negative testing for it. Nohematochezia, hematuria. Patient History Patient Active Problem List Diagnosis Date Noted ??? Menorrhagia 12/12/2018 ??? Mild persistent asthma 07/19/2018 ??? Anxiety 07/19/2018 ??? Depression 07/19/2018 ??? Bipolar 1 disorder, Anxiety 07/19/2018 Past Medical History: Diagnosis Date ??? Dorsalgia Mid back pain - (Added by TW Conv) ??? Metatarsal fracture ??? Prematurity 29 weeks History reviewed. No pertinent surgical history. Family History Problem Relation Age of Onset ??? Arthritis Mother Family history of arthritis - (Added by TW Conv) ??? Low Back Pain Mother Family history of low back pain - (Added by TW Conv) ??? Migraines Mother Family history of migraine headaches - (Added by TW Conv) ??? Spondylolisthesis Mother Spondylolisthesis - (Added by TW Conv) ??? Bleeding Disorder Mother Bleeding disorder - (Added by TW Conv)/Family history of bleeding disorder - (Added by TW Conv) ??? Menstrual problems Mother Periods, menstrual, difficult - (Added by TW Conv) ??? Hypertension Mother Family history of hypertension - (Added by TW Conv) ??? Factor V Leiden deficiency Mother ??? Arthritis Father Family history of arthritis - (Added by TW Conv) ??? Low Back Pain Father Family history of low back pain - (Added by TW Conv) ??? Migraines Father Family history of migraine headaches - (Added by TW Conv) ??? Hypertension Father Family history of hypertension - (Added by TW Conv) ??? Thyroid disease Father Family history of thyroid disease - (Added by TW Conv) ??? Menstrual problems [...] chills and fever. HENT: Negative for ear pain and sore throat. Eyes: Negative for pain and visual disturbance. Respiratory: Negative for cough and shortness of breath. Cardiovascular: Negative for chest pain and palpitations. Gastrointestinal: Negative for abdominal pain and vomiting. Genitourinary: Positive for menstrual problem. Negative for decreased urine volume, dysuria, hematuria, pelvic pain, vaginal discharge and vaginal pain. Musculoskeletal: Negative for arthralgias and back pain. Skin: Negative for color change and rash. Neurological: Positive for dizziness. Negative for seizures, syncope and headaches. All other systems reviewed and are negative. Physical Exam ED Triage Vitals Temp Pulse Resp BP SpO2 11/15/18 1118 11/15/18 1118 11/15/18 1118 11/15/18 1118 11/15/18 1118 36.6 ??C (97.9 ??F) 86 22 116/56 100 % Temp src Heart Rate Source Patient Position BP Location FiO2 (%) 11/15/18 1118 11/15/18 1403 11/15/18 1558 -- -- Temporal Right;Radial Sitting Physical Exam Constitutional: She is oriented to person, place, and time. She appears well- developed and well-nourished. No distress. HENT: Head: Normocephalic and atraumatic. Right Ear: Tympanic membrane normal. Left Ear: Tympanic membrane normal. Mouth/Throat: Oropharynx is clear and moist. Eyes: Conjunctivae are normal. Neck: Neck supple. Cardiovascular: Normal rate, regular rhythm, normal heart sounds and intact distal pulses. No murmur heard. Pulmonary/Chest: Effort normal and breath sounds normal. No respiratory distress. Abdominal: Soft. Bowel sounds are normal. She exhibits no distension. There is no tenderness. Thereis no guarding. Musculoskeletal: Normal range of motion. She exhibits no edema. Neurological: She is alert and oriented to person, place, and time. Skin: Skin is warm and dry. Psychiatric: She has a normal mood and affect. Nursing note and vitals reviewed. Labs Reviewed CBC WITH AUTO DIFFERENTIAL - Abnormal Result Value WBC 7.8 Hgb 11.7 (*) Hct 36.2 Plt 300 MPV 9.0 (*) RBC 4.32 MCV 83.8 MCH 27.1 MCHC 32.3 RDW CV 13.3 RDW SD 40.9 NRBC Abs 0.00 Narrative: PROTIME-INR PT 14.7 INR 1.07 Narrative: APTT aPTT 29.5 Narrative: MANUAL DIFFERENTIAL Differential Manual Cells Counted 115 Neutrophil absolute 5.4 Immature granulocyte absolute 0.0 Lymphocytes absolute 2.2 Monocyte absolute 0.1 Eosinophils absolute 0.1 Basophils, abs 0.1 Neutrophils 68.7 Lymphocytes 27.8 Monocytes 1.7 Eosinophils 0.9 Basophils 0.9 RBC morphology Normal Platelet estimate Adequate Narrative: No orders to display BP 106/66 (Patient Position: Sitting) Pulse 91 Temp 36.6 ??C (97.9 ??F) (Temporal) Resp 20 Wt 67.6 kg (149 lb 0.5 oz) SpO2 100% MDM MDM Number of Diagnoses or Management Options Menorrhagia with irregular cycle: Diagnosis management comments: 13yo female with prior history of menorrhagia previously controlled with OCP, who presents with acute worsening of menorrhagia for the last 4 days. She has been off OCPfor 1 year due to insurance change. Evaluated with CBC due to patient reporting symptomatic (dizzy/lightheaded with ambulation). Mild anemia with Hgb 11.7. Will prescribe iron supplementation for thenext 3 months. Discussed acute management of menorrhagia with information technology teacher gynecology as pt and mother requesting cessation of menstruation. Correctional Officer Sergeant recommended initiation of OCP taper - 3 pills (AM, noon, PM) for 3 days, 2 pills for 2 days, daily until bleeding stops. Counseled family on possible side effec ts with high dose estrogen including n/v, abd pain, headache, etc. Will provide prescription for Zofran to use PRN for emesis. Instructed to follow-up with previously established flooring helper provider to ensure effective cessation of symptoms. Return precautions reviewed. Family voices understanding and agreement with the plan. Amount and/or Complexity of Data Reviewed Clinical lab tests: reviewed Menorrhagia with irregular cycle Autumn Land MD 12/12/18 1158 * Fredy Bergeron RN - 11/15/2018 11:56 AM CST Bed: ED1-30 Expected date: Expected time: Means of arrival: Car Comments: Fredy Bergeron RN 11/15/18 1156 DE CUISINE * Katiana James RN - 11/15/2018 11:22 AM CST Patient here for heavy menstruation, passing clots, in the last hour soaked a super plus tampon andovernight pad. About 1 year ago, almost had to have a blood transfusion for similar issue. Denies dizziness/lightheadness. Today is day 3 or 4 of period. DE CUISINE documented in this encounter Plan of Treatment Not on file documented as of this encounter Procedures Procedure Name Priority Date/Time Associated Diagnosis Comments CBC WITH AUTO DIFFERENTIAL STAT 11/15/2018 1:57 PM CHEF DE CUISINE MANUAL DIFFERENTIAL STAT 11/15/2018 1 :57 PM CHEF DE CUISINE APTT STAT 11/15/2018 1:57 PM CHEF DE CUISINE PROTIME-INR STAT 11/15/2018 1:57 PM CHEF DE CUISINE documented in this encounter Results * Manual Differential (11/15/2018 1:57 PM CHEF DE CUISINE) Differential Manual [facility] Cells Counted 115 [facility] Neutrophil abs 5.4 1.5 - 9.4 K/cumm [facility] Imm gran abs 0.0 0.0 - 0.2 K/cumm [facility] Lymphocyte abs 2.2 1.0 - 7.2 K/cumm [facility] Monocyte abs 0.1 0.1 - 1.7 K/cumm [facility] Eosinophil abs 0.1 0.1 - 1.6 K/cumm [facility] Basophil abs 0.1 0.0 - 0.3 K/cumm [facility] Neutrophil pct 68.7 % [facility] Comment: Interpretive Data Percent cell count reference ranges are not reported, since discordance with absolute values may lead to misinterpretation of CBC data. Current Interpretive Data was last revised on 2018. Lymphocyte pct 27.8 % [facility] Comment: Interpretive Data Percent cell count reference ranges are not reported, since discordance with absolute values may lead to misinterpretation of CBC data. Current Interpretive Data was last revised on 2018. Monocyte pct 1.7 % [facility] Comment: Interpretive Data Percent cell count reference ranges are not reported, since discordance with absolute values may lead to misinterpretation of CBC data. Current Interpretive Data was last revised on 2018. Eosinophil pct 0.9 % [facility] Comment: Interpretive Data Percent cell count reference ranges are not reported, since discordance with absolute values may lead to misinterpretation of CBC data. Current Interpretive Data was last revised on 2018. Basophil pct 0.9 % [facility] Comment: Interpretive Data Percent cell count reference ranges are not reported, since discordance with absolute values may lead to misinterpretation of CBC data. Current Interpretive Data was last revised on 2018. RBC morphology Normal [facility] Platelet estimate Adequate [facility] Blood specimen (specimen) 11/15/2018 1:57 PM CHEF DE CUISINE 11/15/2018 2:05 PM CHEF DE CUISINE Narrative [facility] - 11/15/2018 2:31 PM CHEF DE CUISINE Autumn Land MD LAB BLOOD ORDERABLES Final Result Performing Organization Address [facility] Co de Phone Number [facility] [place] [address] * aPTT (11/15/2018 1:57 PM CHEF DE CUISINE) aPTT 29.5 23.0 - 40.6 sec [facility] Comment: Interpretive Data Usual therapeutic range for monitoring unfractionated heparin is 1.5 - 2 times the mean of the normal range of the PTT. ?? Current interpretive data was last revised on 12 Blood specimen (specimen) 11/15/2018 1:57 PM CHEF DE CUISINE 11/15/2018 2:05 PM CHEF DE CUISINE Narrative [facility] - 11/15/2018 2:34 PM CHEF DE CUISINE Autumn Land MD LAB BLOOD ORDERABLES Edited Result - Final Performing Organization Address [facility] Co de Phone Number [facility] [place] [address] * Protime-INR (11/15/2018 1:57 PM CHEF DE CUISINE) PT 14.7 12.0 - 16.1 sec [facility] INR 1.07 [facility] Comment: Interpretive data Recommended Therapeutic Ranges for Oral Anticoagulants: INR of 2.0 - 3.0 on Standard Dose. Indications, for example; prophylaxis and treatment of venous thrombosis. INR of 2.5 - 3.5 on High Dose. Indications, for example; a mechanical heart valve. Current interpretive data was last revised on 07. Blood specimen (specimen) 11/15/2018 1:57 PM CHEF DE CUISINE 11/15/2018 2:05 PM CHEF DE CUISINE Narrative [facility] - 11/15/2018 2:34 PM CHEF DE CUISINE Autumn Land MD LAB BLOOD ORDERABLES Edited Result - Final [facility] Department [place] [address] * (ABNORMAL) CBC with auto differential (11/15/2018 1:57 PM CHEF DE CUISINE) Pathologist [facility] WBC 7.8 3.8 - 9.9 K/cumm [facility] Hgb 11.7(L) 11.9 - 15.5 g/dL [facility] Hct 36.2 35.6 - 45.5 % [facility] Plt 300 150 - 400 K/cumm [facility] MPV 9.0(L) 9.1 - 12.3 fL [facility] RBC 4.32 3.90 - 5.20 M/cumm [facility] MCV 83.8 81.3 - 96.4 fL [facility] MCH 27.1 27.1 - 33.3 pg [facility] MCHC 32.3 32.3 - 35.7 g/dL [facility] RDW CV 13.3 11.1 - 14.9 % [facility] RDW SD 40.9 35.7 - 48.1 fL [facility] NRBC abs 0.00 0.00 - 0.01 K/cumm [facility] Blood specimen (specimen) 11/15/2018 1:57 PM CHEF DE CUISINE 11/15/2018 2:05 PM CHEF DE CUISINE Narrative [facility] - 11/15/2018 2:30 PM CHEF DE CUISINE us Autumn Land MD LAB BLOOD ORDERABLES Final Result [facility] Department [place] [address] documented in this encounter Visit Diagnoses Diagnosis Menorrhagia with irregular cycle- Primary documented in this encounter Administered Medications Inactive Administered Medications - up to 3 most recent administrations Medication Order MAR Action Action Date Dose Rate Site lidocaine 1% buffered injection 0.1 mL 0.1 mL, subcutaneous, Once, On Sun11/15/18 at 1329, For 1 dose, Maximum daily dose 0.1 mL/kg, Administer immediately prior to procedure. Given 11/15/2018 1:58 PM CHEF DE CUISINE 0.1 mL Other (Comment) documented in this encounter Discontinued Medications Medication Sig Discontinue Reason Start Date End Da te QUEtiapine (SEROquel) 100 mg tablet TAKE 1 TABLET BY MOUTH EVERYDAY AT BEDTIME 07/05/2018 11/15/2018 QVAR REDIHALER 40 mcg/actuation inhaler Inhale 2 puffs 2 (two) times a day. 07/08/2018 11/15/2018 norethindrone ac-eth estradiol (LOESTRIN 10/20, ,) 1-20 mg-mcg per tablet Take 1 tablet by mouth daily. Error 11/15/2018 11/15/2018 documented as of this encounter Historical Medications * This list may reflect changes made after this encounter. nabumetone (RELAFEN) 500 mg tablet Take 500 mg by mouth 2 (two) times a day. 05/07/2019 SYMBICORT 160-4.5 mcg/actuation inhaler INL 2 PFS PO BID 1 08/20/2018 07/05/2021 traZODone (DESYREL) 100 mg tablet Take 100 mg by mouth nightly. at bedtime. 1 10/19/2018 05/07/2019 added in this encounter Active and Recently Administered Medications Times are shown in CHEF DE CUISINE. Scheduled Medication Order 11/13/2018 11/14/2018 11/15/2018 lidocaine 1% buffered injection 0.1 mL (COMPLETED) 0.1 mL, subcutaneous, Once, On Sun11/15/18 at 1329, For 1 dose, Maximum daily dose 0.1 mL/kg, Administer immediately prior to procedure. 1358 (Given - Provid er: Mariola Phelps, RN) documented in this encounter Orders Nursing Count Last Ordered Date First Orde red Date VITAL SIGNS 1 11/15/2018 documented in this encounter Care Teams Project Developer Relationship Specialty Start Date End Date Bassem Cho MD [address] [place] [address] PCP - General 01/17/17 12/19/18 documented as of this encounter
--- OUTSIDE RECORDS SUMMARY | 2024-10-16 03:37 | XMS_ITS | Encounter Summary ---
Author Organization [facility] Address [address] [place] [address] Phone Care Team Providers Care Mechanical Apprentice Name Role Phone Bassem Cho MD Unavailable [phone] Cortney Pineda NP Primary Care Provider [phone] Encounter Details Date Type Department Care Team (Late st Contact Info) Description 04/06/2021 Documentation [facility] Pediatric Neurology [address] [place] [id number] Negrita Pride MD PhD [id number] [place] [address] Social History Tobacco Use Types Packs/Day Years Used Date Smoking Tobacco: Never Smokeless Tobacco: Never Alcohol Use Standard Drinks/Week Comments No 0 (1 standard drink = 0.6 oz pur e alcohol) Comments No Sex and Gender Information Value Date Recorded Sex Assigned at Not on file Legal Sex Female 6:43 AM IDENTITY ACCESS MANAGEMENT ARCHITECT Gender Identity . 01/07/2021 9:24 AM CDT Sexual Orientation Not on file documented as of this encounter Progress Notes * Negrita Pride MD PhD - 04/06/2021 2:53 PM CDT Can someone please call this family. Her OT is concerned that she is having an increase in self injurious tics to self and others and vocal tics. Tics are constant frequency. Tic affecting self care tasks including eat and drink, take meds, sleep,and talk. Ct is has extreme fatigue. Injurious tics caused injuire to others: hitting friend's head caused concession, leg kick- niece dislocated knee tendon, self - biting her own and others arms,banging head on table. Can you ask what medications she is ACTUALLY taking and whether she has been on Clonidine or Guanfacine before? documented in this encounter Plan of Treatment Not on file documented as of this encounter Visit Diagnoses Not on filedocumented in this encounter Care Teams Mechanical Apprentice Relationship Specialty Start Date End Date Cortney Pineda SHOE WORKER [address] [place] [address] PCP - General 06/09/19 Bassem Cho MD [address] [place] [address] 12/20/18 documented as of this encounter
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
--- OUTSIDE RECORDS SUMMARY | 2024-10-16 03:37 | XMS_ITS | Encounter Summary ---
Author Organization [facility] Address [address] [place] [address] Phone Care Team Providers Care Cigarette Packer Name Role Phone Bassem Cho MD Unavailable [phone] Cortney Pineda NP Primary Care Provider [phone] Reason for Referral * Consultation (Routine) - Closed Specialty Diagnoses / Procedures Referred By Contact Referred To Contact Pediatric Occupational Therapy Diagnoses Tic disorder Negrita Pride MD PhD [id number] [place] [address] Phone: tel: fax: [facility] (All Locations) Referral ID Status Reason Start Date Expiration Date V isits Requested Visits Authorized [id number] Closed Specialty Services Required 11/29/2020 12/29/2021 24 24 Question Answer PTRFR OT Evaluate and Treat Therapy options discussed with patient's family/caregiver? Yes Location provided for therapy services is: Family or caregiver requested/preferred Please select the performing region: [facility] (All Locations) [167] # of visits: 24 Comments CBIT, functional neurological symptoms SPERSON PARTS Reason for Visit * Consultation (Routine) - Closed Specialty Diagnoses / Procedures Referred By Contac t Referred To Contact Pediatric Neurology Diagnoses Tourette's Negrita Pride MD PhD [id number] [place] [address] Phone: tel: fax: [facility] Pediatric Neurology [address] [facility] [address] [place] [address] [place] [address] Phone: tel: fax: Referral ID Status Reason Start Date Expiration Date V isits Requested Visits Authorized [id number] Closed Specialty Services Required 10/06/2020 11/05/2021 1 1 Encounter Details Date Type Department Care Team (Late st Contact Info) Description 11/29/2020 2:00 PM SALESPERSON PARTS Office Visit [facility] Pediatric Neurology [facility] [address] [place] [address] Negrita Pride MD PhD [id number] [place] [address] 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 01/07/2021 9:24 AM CDT Sexual Orientation Not on file documented as of this encounter Last Filed Vital Signs Vital Sign Reading Time Taken Comments Blood Pressure 132/77 11/29/2020 2:20 PM SALESPERSON PARTS Pulse 111 11/29/2020 2:20 PM SALESPERSON [employer]S Temperature 36.9 ??C (98.4 ??F) 11/29/2020 2:20 PM CS T Respiratory Rate 22 11/29/2020 2:20 PM SALESPERSON PARTS Oxygen Saturation 98% 11/29/2020 2:20 PM SALESPERSON PARTS Inhaled Oxygen Concentration - - Weight 62.4 kg (137 lb 8 oz) 11/29/2020 2:20 PM SALESPERSON PARTS Height 165.5 cm (5' 5.16 ) 11/29/2020 2:20 PM CS T Body Mass Index 22.77 11/29/2020 2:20 PM SALESPERSON PARTS Body Mass Index Percentile 72.94% 11/29/2020 2:2 0 PM SALESPERSON PARTS Growth Chart: [facility] (Girls, 2- 20 Years) documented in this encounter Progress Notes * Negrita Pirde MD PhD - 11/29/2020 2:00 PM CST Images from the original note were not included. [facility] Subjective/Objective Patient ID: Lexie Oconnell is a 15 y.o. female here for consultation for tics History of Present Illness Tics began about 2 years ago. They [...] tic that prevents her from taking medication. Depression/Anxiety: started 2017 following a very traumatic year with many deaths in the family. She had 4 hospitalizations over [id number]. Mood is relatively controlled on Depakote, Clonazepam, Effexor. She is followed by a counselor and psychiatrist. Now diagnosed with bipolar II. Migraines: improved on VPA, at the worst part, she was having 3-4 per week. School and Therapy Attends public school 10th grade, typically has done well with school, although she struggled with remote learning. IEP with good support structure. Past Medical History: Diagnosis Date ??? Bipolar 2 disorder (CMS/HCC) ??? Dorsalgia Mid back pain - (Added [...] a day. , Disp: , Rfl: ??? cyproheptadine (PERIACTIN) 4 mg tablet, Take [...] needed for pain, Disp: , Rfl: ??? norgestimate-ethinyl estradiol (ORTHO-CYCLEN) 0.25-35 mg-mcg per tablet, Take 1 tablet by mouthdaily., Disp: 28 tablet, Rfl: 0 ??? pimozide (ORAP) 2 mg tablet, Take 2 mg by mouth 2 (two) times a day , Disp: , Rfl: ??? SYMBICORT 160-4.5 mcg/actuation inhaler, INL 2 PFS PO BID, Disp: , Rfl: 1 ??? venlafaxine XR (EFFEXOR-XR) 150 mg 24 hr capsule, daily, Disp: , Rfl: Allergies Allergen Reactions ??? [...] Physical Exam GENERAL EXAM Vital signs: BP 132/77 (BP Location: Left arm, Patient Position: Sitting) Pulse 111 Temp 36.9 ??C (98.4 ??F) Resp 22 Ht 165.5 cm (5' 5.16 ) Wt 62.4 kg (137 lb 8 oz) SpO2 98% BMI 22.77 kg/m?? Well-appearing. No dysmorphic features. HEENT: normal Resp: breathing room air without distress Abdomen soft, no organomegaly. Skin: No dermatologic stigma of neurological disease were noted. No rashes MS: No joint swelling or redness, normal muscle bulk Extremities: well perfused, straight without contracture. NEUROLOGIC EXAM Mental status: Alert and attentive with fluent speech with stream of consciousness, she frequently refers to herself in the 3rd person. She also talks to her tics. Appropriate vocabulary and sentencestructure for age. Followed all exam instructions without difficulty. Cranial nerves: PERRL; Eye movements full without nystagmus; Normal face expressiveness. No dysarthria, Symmetrical palate elevation.Tongue midline. Motor: Normal muscle bulk and tone. Full strength in all muscle groups. Abnormal movements: Numerous small motor tics, frequent coprolalia and copropraxia, speaking in Filipino accent Reflexes: Deep tendon reflexes: 2+ in arms and legs bilaterally. Plantar reflex flexor bilaterally. Coordination: No dysmetria on [id number] bilaterally Gait: Narrow base, steady. Normal tandem gait. Assessment/Plan Encounter Diagnoses Name Primary? Tic disorder ??? Functional neurological symptom disorder with abnormal movement Yes ??? Panic attacks ??? Tourettes syndrome Lexie is a 15 yo with history of bipolar II who has motor and vocal tics that wax and wane and have been present for more than 1 year, thus meeting criteria for Tourette's syndrome. I discussed the natural history and treatment of Tourette's at length with the family, including medications, cognitive behavioral interventions, botulinum toxin and surgical interventions. While some of her symptoms today are consistent with tics, the majority of her symptoms are consistent with a functional neurologic syndrome and similar to several well known social media/[employer] teenagers that have gathered large numbers of followers during the pandemic. There are some of the movements that are consistent with tics and she does describe a premonitory sensation and ability to suppress. I counseled the family that I think that there are a combination of these occurring. I am referring her to our movement disorders OT program where they deal with both tics and functional neurologic syndromes. ?? 1. Update neuropscyhologic eval 2. Lab work: ferritin, vit D, CMP, CBC, TSH to monitor VPA 3. Consider switching to liquid VPA, will need to dose TID 4. Refer to OT 5. RTC 3 months documented in this encounter Plan of Treatment Scheduled Referrals Name Type Priority Associated Diagnoses Order Schedule Ambulatory referral order to Pediatric Occuptional Therapy - Outpatient Referral Routine Tic disorder Expected: 12/13/2020 (Approximate), Expires: 11/29/2021 documented as of this encounter Results * (ABNORMAL) Vitamin D 25 hydroxy (07/05/2021 12:45 PM CDT) [facility] Vitamin D 25-OH 14(L) 20 - 100 ng/mL [facility] Blood 07/05/2021 12:4 5 PM CDT 07/05/2021 1:06 PM CDT Narrative [facility] - 07/06/2021 12:17 PM CDT AGES: -18 years - Sufficient: 20-100 ng/mL; Borderline: 10-20 ng/mL; Deficient: <10 ng/mL. ??Reference intervals pertain to males and females from through age 18. ??Intervals reflect consensus clinical decision limits derived from various reports including the 2011 [place] [employer] Report on calcium and vitamin D. ??Vitamin D concentrations may vary widely depending on ethnic background, geographic location, and the time of the year the sample was obtained. ??References: ??1. Sander RUGGIERO, Agnes CASTILLO. Prevention of Rickets and Vitamin D Deficiency in Infants, Children, and Adolescents. Pediatrics 2008;122:9221-0598. ??2. Tommy AC, Chelsea CL, Noble AL, Manuel Vincent HB, eds. Dietary Reference Intakes for Calcium and Vitamin D. [place] [employer]; National AcademeBusinessCards.com Press:2011 ??3. Konrad GRACIELA, Harshad J, and Mustapha DJ. Circulating Intact Parathyroid Hormone is Suppressed at 25-hydroxyvitamin D Concentrations greater than 25 nmol/L. J Pediatr Endocrinol Metab 2014;doi:10.1515/elij-0639-1636. Last revised on 11/02/2017. Negrita Pride MD PhD LAB BLOOD ORDERAB LES Final Result [facility] [place] [address] * (ABNORMAL) Comprehensive metabolic panel (07/05/2021 12:45 PM CDT) Sodium 142 135 - 145 mmol/L [facility] Potassium, pl 4.2 3.3 - 4.9 mmol/L [facility] Chloride 113 100 - 114 mmol/L [facility] CO2 25 20 - 30 mmol/L [facility] Anion gap 4 2 - 15 mmol/L [facility] BUN 12 9 - 18 mg/dL [facility] Creatinine 0.51 0.40 - 1.00 mg/dL [facility] Glucose 96 70 - 199 mg/dL [facility] Comment: Interpretive Data Fasting glucose >/= [...] Calcium 9.7 8.5 - 10.3 mg/dL [facility] Bilirubin, total 0.3 0.1 - 1.2 mg/dL [facility] Protein, pl 7.2 6.5 - 8.5 g/dL [facility] Albumin 4.8 3.2 - 5.0 g/dL [facility] Alk phos 59(L) 70 - 260 Units/L [facility] ALT 7 7 - 45 Units/L [facility] AST 12 10 - 50 Units/L [facility] Blood 07/05/2021 12:4 5 PM CDT 07/05/2021 1:06 PM CDT us Negrita Pride MD PhD LAB BLOOD ORDERAB LES Final Result [facility] [place] [address] documented in this encounter Visit Diagnoses Diagnosis Functional neurological symptom disorder with abnormal movement- Primary Tic disorder Tic disorder, unspecified Panic attacks Panic disorder without agoraphobia Tourettes syndrome Tourette's disorder Menorrhagia with irregular cycle Tic disorder Tic disorder, unspecified documented in this encounter Orders Outpatient Referral Count Last Ordered Date Fir st Ordered Date AMB REFERRAL TO PEDIATRIC NEUROLOGY 1 11/29 documented in this encounter Care Teams Cigarette Packer Relationship Specialty Start Date End Date Cortney Pineda NP [address] [place] [address] PCP - General 06/09/19 Bassem Cho MD [address] [place] [address] 12/20/18 documented as of this encounter
--- OUTSIDE RECORDS SUMMARY | 2024-10-16 03:37 | XMS_ITS | Encounter Summary ---
Author Organization [facility] Address [address] [place] [address] Phone Care Team Providers Care Smoking Pipe Mounter Name Role Phone Bassem Cho MD Unavailable [phone] Cortney Pineda NP Primary Care Provider [phone] Reason for Visit * Reason Comments OT Treatment * Consultation (Routine) - Closed Specialty Diagnoses / Procedures Referred By Contact Referred To Contact Pediatric Occupational Therapy Diagnoses Tic disorder Negrita Pride MD PhD [id number] [place] [address] Phone: tel: fax: [facility] (All Locations) Referral ID Status Reason Start Date Expiration Date V isits Requested Visits Authorized [id number] Closed Specialty Services Required 11/29/2020 12/29/2021 24 24 Encounter Details Date Type Department Care Team (Late st Contact Info) Description 02/04/2021 2:00 PM CDT Therapy [facility] Occupational Therapy [address] [place] [id number] Vicky Ramachandran, OT [address] [place] [address] Tic disorder (Primary Dx) Social History Tobacco [...] as of this encounter Progress Notes * Tanya Broussard, BS - 02/04/2021 2:00 PM CDT OT Daily Treatment Note Lexie Oconnell 2005 Subjective: I didn't get a chance to practice at home. Pain: 0/10 (facial scale) Objective: Client was seen in clinic setting with her father, for the last 10 minutes of session. No change in medical status stated. OTS present and help in session. Ct prefers they and them in session but prefers she/her when around parents. Notes will continues she/her until ct states otherwise. - Mooney Bees CBIT Awareness Physical Actions for mooney bees tic: lips purse state mooney bees . - Head Hitting CBIT Awareness Physical Actions for Head Hitting tic: ext finger with R or B Sh ER to hit head. - Punching tic CBIT Awareness Physical Actions for punching tic: R finger flex, with sh ER to neutral to elb ext to punch back ofanother person head, neck, back, UE's or stomach. Premonitory Urge for punching tic: Ct id 3 urge feelings: tightening on the deltoid, feeling in thehead, and feeling on posterior scapula. HEP Awareness Update: Ct reported she was unable to complete HEP of practicing catch my tic. Session Awareness Training: Skilled re-education on how to participate in Catch My tic, with father completing the rating scale. Ct initially caught tic on 13/16 attempts during focused practice. Ct caught 7/14 tics before during [employer] game. When asked about urge feeling, ct identified she was catching the initiation of the muscle contraction, rather than a premonitory urge. OTR provided mod skilled ed on premonitory urge and the importance of timing in the CBIT program. OTR assisted ct with identifying potential premonitory urge feelings. When focusing on an urge feeling in the head, ct caught 6 tics during and 4 tics before. When focusing on an urge feeling in the deltoid, ct caught 4 tics during. When focusing on an urge feeling the posterior scapula, ct caught 2 tics during. HEP assigned to continue to explore potential urge feelings through catch my tic activity. HEP: Practice catch my tic activity with a caregiver to id premonitory urge for punching tic for 3-5 min for 3-4 times a day. CBIT Education: Education Provided: Max skilled ed on CBIT process, tic management, and disease awareness, as this was the first session ct's father attended. Father verbalized poor-fair understanding of education given. Ct reported having an increased number of tics 2/2 spending time at [employer] sale. Ct reported stress from noise level, social stimulation, and stress from needing to complete schoolwork. Mod skilled ed on managing triggers for tics. Tic Symptom Hierarchy Tracker Tics are rated by client to determine which tics are interfering the most in daily activities. SUDSrating is a scale of 0-10 (0 not bothering me and 10 significantly bothersome) with client and caregiver rating tics for past week. Tic Symptoms SUDS Rating Session # 1 2 3 4 5 6 7 8 Date 01/12 01/20 01/26 02/04 1. Punching 7 Hourly 2 Weekly (1- 2x) 6 Daily (3-4x) 6 Daily (2-5x) 2. Bees 5 Constant 6 Hourly 8 Weekly (3x) 1 Weekly 3. Mooney Bees 5 Constant 7 Hourly 8 Daily 1 Weekly 4. Copropraxia 3 Constant 5 Daily 7 Daily 4 Hourly 5. Coprolalia 4 Constant 7 Hourly 8 Constant 7 Constant 6. Lateral neck flexion 6 Daily 6 Daily (7-8x) 6 Constant 8 Constant (reports pain from tic) 7. Neck hyperextension 6 Daily 4 Weekly (3x) Weaned this week 8 Hourly 8. Neck protraction 6 Daily 2 Weekly Weaned this week 9 Constant 9. Neck rotation 7 Daily 4 Weekly (3x) 8 Constant (pain and spasms with tic) 10 Constant 10. I have drugs 10 Around law enforcement, weekly 0 No opportunity this week 10 Weekly 0 weaning 12. Karate kick 4 weekly 0 Weaned 6 Weekly (2-3) 0 weaning 12. Fag 5 Daily, in response to sibling 5 Weekly (3x) 7 Weekly (3-4x) 1 Weekly 13. Bees in my edy 8, Daily 0 Weaned 0 Weaned 0 Weaned 14 I'm finch, no gender here 10, weekly (2-3 times a week) 10 Weekly 7 Weekly (3-4x) 0 Weaned. Education provided this session: Client and Father were educated on: - OT POC for today and next session. Client/family verbalized Fair understanding and shows need for further education/reinforcement. Assessment: Session this week focused ed on CBIT awareness training. Ct was unable to complete HEP of practicing Catch My Tic / scheduling. Session focused on building awareness for premonitory urge for ct's punching tic. After practice and facilitated discussion, ct identified she was catchingher muscles activating, rather than a true premonitory urge. The rest of the session focused on assisting ct with interoception to build skills to ID premonitory urge. Ct completed 3 additional practice sessions, focusing on 3 different sites for urge feelings: head, deltoid, and posterior scapula.During this practice, ct had the highest success rate catching the tic before when focusing on the urge in her head 40% of the time. When focusing the urge in the deltoid or posterior scapula, ct wasunable to catch the tic before. OTR assesses if ct progresses with catching her tics and IDing her premonitory urge she will be able to move onto creating a competing response for her punching tic, next session. Ct will benefit from continued OT services at 1x/wk to improve tic management to facilit ate improved success within home and community activities. [...] in 4 weeks. Fair verbal awareness on 3/3 weeks Progressing (02/04/2021) 4. Client will implement 1-2 adaptive strategies [...] tic management in 4 weeks. Met on 10/01 sessions within session. Progressing (01/26/2021) 6. Client will eat 3 meals a day on 3/4 weeks within 2 months. New (12/23/2020) Correction Goals: 1. Client and caregiver will create [...] and parents within 2 months. Met on 2/2 wks. Progressing (01/26/2021) 4. Client will be able to self -advocate for herself through short speech stating a definition of her tic disorder and what others can do to help manage her tics in 6 weeks. Progressing (01/26/2021) 5. Ct will manage FND symptoms 80% of the time for 3/4 weeks using adaptive strategies within 4 months. New (12/23/2020) Frequency of OT visits: 1x/wk Duration in weeks: 3-4 months Plan discussed with: Patient and Family Start time: 1403 End time: 1501 documented in this encounter Plan of Treatment Not on file documented as of this encounter Visit Diagnoses Diagnosis Tic disorder- Primary Tic disorder, unspecified documented in this encounter Care Teams Smoking Pipe Mounter Relationship Specialty Start Date End Date Cortney Pineda NP [address] [place] [address] PCP - General 06/09/19 Bassem Cho MD [address] [place] [address] 12/20/18 documented as of this encounter
--- OUTSIDE RECORDS SUMMARY | 2024-10-16 03:37 | XMS_ITS | Encounter Summary ---
Author Organization [facility] Address [address] [place] [address] Phone Care Team Providers Care Nursery Technician Name Role Phone Bassem Cho MD Unavailable [phone] Cortney Pineda NP Primary Care Provider [phone] Reason for Visit * Reason Comments OT Treatment * Consultation (Routine) - Closed Specialty Diagnoses / Procedures Referred By Contact Referred To Contact Pediatric Occupational Therapy Diagnoses Tic disorder Negrita Pride MD PhD [id number] [place] [address] Phone: tel: fax: [facility] (All Locations) Referral ID Status Reason Start Date Expiration Date V isits Requested Visits Authorized [id number] Closed Specialty Services Required 11/29/2020 12/29/2021 24 24 Encounter Details Date Type Department Care Team (Late st Contact Info) Description 04/06/2021 1:00 PM CDT Therapy [facility] Occupational Therapy [address] [place] [id number] Vicky Ramachandran, OT [address] [place] [address] Tic disorder (Primary Dx) Social History Tobacco Use Types Packs/Day Years Used Date Smoking Tobacco: Never Smokeless Tobacco: Never Alcohol Use Standard Drinks/Week Comments No 0 (1 standard drink = 0.6 oz pur e alcohol) Comments No Sex and Gender Information Value Date Recorded Sex Assigned at Not on file Legal Sex Female 6:43 AM SPECIAL OFFICER Gender Identity . 01/07/2021 9:24 AM CDT Sexual Orientation Not on file documented as of this encounter Progress Notes * Vicky Ramachandran, OT - 04/06/2021 1:00 PM CDT OT Daily Treatment Note Lexie Oconnell 2005 Subjective: Ct stated she attend her [employer]lic[employer] groups conclave meeting which week long activity. 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 Mother id this require e-mail and meeting couple times a month. Ct's mother stated Lexie is having an increase in self injurious tics to self and others and vocal tics Pain: 6/10 (facial scale) Objective: Client was seen in clinic setting with zer mother for full session. No change in medicalstatus stated. Client's preferred pronouns: Ct prefers they/them, ze/zem, and it/its pronouns, when parents are not around. Client's preferred name: Gina when parents are not around. - Mooney Bees CBIT Awareness Physical Actions [...] like I am going to move : - CBIT Competing Response (CR): Punching tic Created CR: Client and family created a CR for punching tic with max verbal, visual, and tactile cues. CR for punching tic: Adduct arms, extend elbows, neutral wrists, extended fingers. Push glenohumeral joint down. HEP update of CR: Ct stated CR was implemented but did assist managing tic. Mod- max verbal promptsto id that CR was being paired as ct struggled to pay attention to urge. Ct and mother stated fair verbal understanding of ed.Ct id CR then became a new tic.Ct's mother stated Lexie is having an increase in self injurious tics to self and others and an increase in vocal tics. Tics are at constant frequency. Tic are effcting self care tasks including eating and drinking, taking meds, sleep,and talking. Ct has extreme fatigue. Injurious tics in last couple wks have caused injuire to others: hitting friend's head caused concession, leg kick to niece dislocated knee tendon, self - biting her ownarm and other's arms, banging her head on table. Session CR training: Mod verbal ed to ct and mother on how CR's typically do emerge as tics. Mod verbal ed on suggestibility element of medical condition, on pairing of tic to CR, and on tic attacks.Ct, OTR, and mother agreed after guided conversation that due to ct being in a state of tic attacks, this wk, that CBIT should be on hold for this wk, and management with other tic strategies is sandra kumar. Neuro was contacted to assess if med change is needed. Tic Management ?? Ct presented with high frequency of vocal tics and physical tics (biting, grabbing items, pushing, kicking, hitting self and others). Frequency was within 40-50 vocal and physical tics/1 min. ?? Ct and mother was ed with mod verbal ed on tic management strategies including: distractibility tasks (id coloring), proprioceptive tasks (id weighted blanket, pool, tub bathes), vestibular (id swinging, rocking chair), auditory (id music), and oral (id chew tube). OTR issued chew tube to trail.Mod verbal ed on types of chew jewelry, things to consider when purchasing, and possible negative effect on biting tic. Mod verbal and visual ed on helmets that can be used to protect heads for head banging tics and use of sweatshirts to protect arms for biting tics. Ct and mother stated fair verbal understanding of ed. Mother took notes to help recall strategies ?? OTR provided ct with coloring pencils and an adult coloring pg. Tic frequency decreased from 40-50 vocal and physical tics/1 min to >10 vocal and physical tics/1 min. ?? OTR provided ct with oral tube to chew on as ze was coloring Tic frequency decreased from 40-50 vocal and physical tics/1 min to >3 vocal and physical tics/1 min. ?? Ct stated she is not eating 3 meals a day. Mod verbal ed on effect of lack of nutrition to management of her medical conditions. HEP: ?? Implement use of tic management strategies including: distractibility tasks (id coloring), proprioceptive tasks (id weighted blanket, pool, tub bathes), vestibular (id swinging, rocking chair), auditory (id music), and oral (id chew tube). ?? Set up travel bag with tic management strategies ?? Decrease demands of day ?? Eat 3 meals or multiple snack (5 or more times a day) with variety of types of food to hit all nutrition areas ?? Assess need to purchase a Helmet ?? Wear sweatshirts to cover arms.. Tic Symptom Hierarchy Tracker (04/06/2021 - not completed as ct struggled to [...] 7 8 Date 01/12 01/20 01/26 02/04 02/15 02/23 1. Punching 7 Hourly 2 Weekly (1- 2x) 6 Daily (3-4x) 6 Daily (2-5x) 7 Weekly (3x) 7 Daily 2. Bees 5 Constant 6 Hourly 8 Weekly (3x) 1 Weekly 2 Daily (1-2x) 0 Weaned 3. Mooney Bees 5 Constant 7 Hourly 8 Daily 1 Weekly 0 Weaned 0 Weaned 4. Copropraxia 3 Constant 5 Daily 7 Daily 4 Hourly 6 Hourly 4 Daily (3-4x) 5. Coprolalia 4 Constant 7 Hourly 8 Constant 7 Constant 7 Constant 4 Hourly 6. Lateral neck flexion 6 Daily 6 Daily (7-8x) 6 Constant 8 Constant (reports pain from tic) 5 Weekly 8 Hourly 7. Neck hyperextension 6 Daily 4 Weekly (3x) Weaned this week 8 Hourly 4 Daily 4 Daily (5x) 8. Neck protraction 6 Daily 2 Weekly Weaned this week 9 Constant 4 Daily 6 Hourly 9. Neck rotation 7 Daily 4 Weekly (3x) 8 Constant (pain and spasms with tic) 10 Constant 0 Weaned 9 Daily 10. I have drugs 10 Around law enforcement, weekly 0 No opportunity this week 10 Weekly 0 weaning 10 Weekly (3-4x) (on vacation) 0 Weaned 12. Karate kick 4 weekly 0 Weaned 6 Weekly (2-3) 0 weaning 0 Weaned 7 Daily 12. Fag 5 Daily, in response to sibling 5 Weekly (3x) 7 Weekly (3-4x) 1 Weekly 8 Hourly 8 Hourly 13. Bees in my edy 8, Daily 0 Weaned 0 Weaned 0 Weaned 0 Weaned 0 Weaned 14 I'm finch, no gender here Changed: gender-related tic 10, weekly (2-3 times a week) 10 Weekly 7 Weekly (3-4x) 0 Weaned 10 Daily 9 Weekly (3x) Tic Distress Monitoring Form (04/06/2021 - not completed as ct struggled to focus and attend to answer questions. Mention of tics also increased tic actions) Tic name/ description How bothersome is it (distress scale) Session # 1 2 3 4 5 6 7 8 Date 02/23 Punching Tic: anxiety about punching sister/mother 7 Education provided this session: Client and Mother were educated on: - OT POC for today and next session. Client/family verbalized Fair understanding and shows need for further education/reinforcement. Assessment: Session this week focused ed on CBIT CR training, and tic management strategies. Ct presented to session with high frequency of tics (40-50 vocal and physical tics/1 min). OTR assess increase in community demands or fatigue from last wks community tasks increased tic frequency. CBIT CR for punching tic was trial but failed. OTR assess failure may 2/2 too high of frequency of tics sean carcamo it hard to assess for urge of tic. Ct id CR became a new tic. OTR assess her suggestibility may have been the cause of this. Further assessment is needed to assess if CBIT strategies will work for zer. Session focused on tic management strategies and strategies were id. Within session, strategiesused decreased frequency to >5-10 vocal and physical tics/1 min which was significant . Plan is to use only tic management for the next wk and to work with Neuro on id if med change can be done now. Ct will benefit from continued OT services [...] weeks. Lexie independently initiated competing response on 2/2 sessions Progression (04/06/2021) 3. Client will increase awareness of their tic disorder and what facilitates and hinders tic management in 4 weeks. Fair verbal awareness on 03/06 weeks Skilled ed on stress management on Skilled ed on tic management strategies on 10/01 weeks Progressing (04/06/2021) 4. Client will implement 1-2 adaptive strategies to facilitate management of triggers resulting in increasing management of tic disorder on ?? weeks in [address] created plan to manage sensory trigger on 2/[address] created plan to manage stress trigger on 2/2 sessions. Progressing (02/23/2021) 5. Client will catch tic at 70% accuracy on 5/7 days per parent report to increase awareness of premonitory urge to facilitate tic management in 4 weeks. Met on 2/2 sessions within session. Progressing (02/23/2021) 6. Client will eat 3 meals a day on 3/4 weeks within 2 months. New (12/23/2020) [facility] Goals: 1. Client and caregiver will create and implement a competing response with minimal verbal cues across 2 sessions in 8 weeks. Met on 2/2 sessions Progressing (04/06/2021) 2. Client will use the competing response [...] and parents within 2 months. Met on 3/4 wks. Progressing (04/06/2021) 4. Client will be able to self -advocate for herself through short speech stating a definition of her tic disorder and what others can do to help manage her tics in 6 weeks. See STG for progress Progressing (02/23/2021) 5. Ct will manage FND symptoms 80% of the time for 3/4 weeks using adaptive strategies within 4 months. New (12/23/2020) Frequency of OT visits: 1x/wk Duration in weeks: 3-4 months Plan discussed with: Patient and Family Start time: 1312 End time: 1400 documented in this encounter Plan of Treatment Not on file documented as of this encounter Visit Diagnoses Diagnosis Tic disorder- Primary Tic disorder, unspecified documented in this encounter Care Teams Nursery Technician Relationship Specialty Start Date End Date Cortney Pineda, MONOTYPER [address] [facility] [place] [address] PCP - General 06/09/19 Bassem Cho MD [address] [place] [address] 12/20/18 documented as of this encounter
--- OUTSIDE RECORDS SUMMARY | 2024-10-16 03:37 | XMS_ITS | Encounter Summary ---
Author Organization [facility] Address [address] [place] [address] Phone Care Team Providers Care Engineering Secretary Name Role Phone Bassem Cho MD Unavailable [phone] Cortney Pineda NP Primary Care Provider [phone] Vicky Ramachandran OT Unavailable [phone] Reason for Visit * Reason Comments OT Treatment * Consultation (Routine) - Closed Specialty Diagnoses / Procedures Referred By Contact Referred To Contact Pediatric Occupational Therapy Diagnoses Tic disorder Negrita Pride MD PhD [id number] [place] [address] Phone: tel: fax: [facility] (All Locations) Referral ID Status Reason Start Date Expiration Date V isits Requested Visits Authorized [id number] Closed Specialty Services Required 11/29/2020 12/29/2021 24 24 Encounter Details Date Type Department Care Team (Late st Contact Info) Description 04/27/2021 9:00 AM CDT Therapy [facility] Occupational Therapy [address] [place] [address] Vicky Ramachandran, OT [address] [place] [address] Tic disorder (Primary Dx) Social History Tobacco Use Types Packs/Day Years Used Date Smoking Tobacco: Never Smokeless Tobacco: Never Alcohol Use Standard Drinks/Week Comments No 0 (1 standard drink = 0.6 oz pur e alcohol) Comments No Sex and Gender Information Value Date Recorded Sex Assigned at Not on file Legal Sex Female 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 01/07/2021 9:24 AM CDT Sexual Orientation Not on file documented as of this encounter Progress Notes * Vicky Ramachandran, OT - 04/27/2021 9:00 AM CDT OT Daily Treatment Note Lexie Oconnell 2005 Subjective: Ct and mother each stated they did not sleep well last night. Ct stated tics decrease frequency to allow chiropractor adjustment. Mother stated that dad is changing jobs which will affectzero insurance coverage. Ct is distressed as ze is worried it will affect zero being able to continue medical tx's. Pain:3/10 ( soreness pain on spine 2/2 chiropractor adjustment) Objective: Client was seen in clinic setting with zero mother for full session. No change in medical status stated. Client's [...] going to move : HEP Awareness Update: No awareness HEP last session. Session Awareness Training: Ct practiced catch my tic activity for 8 min during visual motor gameand 10 min without activity. Mod verbal prompts to id sensation and area to focus on during catch my tic activity. Ct caught before 0 tic, during 9 tics and missed 0 tics. Ct expressed ze wants to trail working on urge awareness with another tic as ze feels like too tough to id this urge. Ze id To work on bees tic. - CBIT Competing Response (CR): Punching tic Created CR: Client and family created a CR for punching tic with max verbal, visual, and tactile cues. CR for punching tic: Adduct arms, extend elbows, neutral wrists, extended fingers. Push glenohumeral joint down. HEP CR Practice: Ct stated that she has been suppressing the tic and it works for a short while. Zestated ze it using zero CR as she can not catch zero tic. - CBIT Awareness: Bees tic Physical Actions for Bee's tic: Verbalizes bee's . Premonitory Urge for bee's tic: Ct indicated she has an urge but verbalize feeling HEP Awareness Update: Tic weaned on next day. Session Awareness Training: Ct practiced two trials of 2-3 min and caught before 1 tic, during 1 tics and missed 0 tics on 1st trail and caught before 0 tic, during 0 tics and missed 0 tics on 2nd trial. HEP: Practice catch my tic activity with a caregiver to id premonitory urge for bee's tic for 3-5 min for 3-4 times a day. - CBIT Awareness: worm or o worm Physical Actions for Bee's tic: Verbalizes worm or o worm Premonitory Urge for bee's tic: Ct indicated she has an urge of intensity in chest to speak or thought of word HEP Awareness Update: No HEP last session for this tic. Session Awareness Training: Ct practiced two trials of 2-3 min and caught before 1 tic, during 5 tics and missed 0 tics on 1st trail and caught before 3 tic, during 5 tics and missed 0 tics on 2nd trial. HEP: Practice catch my tic activity with [...] or thought of word HEP Awareness Update: No HEP last session for this tic. Session Awareness Training: Ct practiced two trials of 2-3 min and caught before 0 tic, during 2 tics and missed 0 tics on 1st trail and caught before 0 tic, during 0 tics and missed 0 tics on 2nd trial. HEP: Practice catch my tic activity with a caregiver to id premonitory urge for Bird tic for 3-5 min for 3-4 times a day - CBIT Awareness: Murder , I brought you murder and I am going to kill my mom Physical Actions for Bee's tic: Verbalizes Murder , I brought you murder and I am going to kill my mom Premonitory Urge for bee's tic: Ct indicated she has an urge of intensity in chest to speak or thought of word HEP Awareness Update: No HEP last session for this tic. Session Awareness Training: Ct practiced two trials of 2-3 min and caught before 0 tic, during 1 tics and missed 1 tics on 1st trail and caught before 0 tic, during 0 tics and missed 0 tics on 2nd trial. HEP: Practice catch my tic activity with a caregiver to id premonitory urge for Murder , I brought you murder and I am going to kill my mom tic for 3-5 min for 3-4 times a day - CBIT Competing Response (CR): bees , bird , worm or o worm , Murder , I brought you murder and I am going to kill my mom Created CR: Client and family created a CR for bees , bird , worm or o worm , Murder , I brought you murder and I am going to kill my mom tics with max visual and verbal cues. CR for bees , bird , worm or o worm , Murder , I brought you murder and I am going to killmy mom tic: inhale though nose, exhale with open mouth, and write word with finger or tongue. HEP CR Practice: No HEP was issued last session. Practiced CR in Session: Client was observed pairing Lexie Oconnell's bees , bird , worm or o worm , Murder , I brought you murder and I am going to kill my mom CR to tic in session, [address] did not id which tic it was. Tic was successfully managed as it did occur after use of CR and ct stated it stop the tic. HEP: Practice bees , bird , worm or o worm , Murder , I brought you murder and I am going to kill my mom CR with caregiver to pair CR with bees , bird , worm or o worm , Murder , I brought you murder and I am going to kill my mom tic; 3-4x/day. If ct becomes more successful pairing ind CR to ze tic then process to a more triggering activity. Tic Management ?? Ct presented with low -mod frequency of vocal tics and physical tics (grabbing of items, hittingself and others). Frequency was within <20-25 vocal and physical tics/ hr. Ct and ct's mother idtics have decreased since last med change. ?? Eating: Ct stated ze is eating more complete meals; having 1-2 plates.. HEP: ?? Implement use of tic management [...] to cover arms.. Tic Symptom Hierarchy Tracker (04/11/2021 - not [...] Date 01/12 01/20 01/26 02/04 02/15 02/23 04/18 04/27 1. Punching 7 Hourly 2 Weekly (1- 2x) 6 Daily (3-4x) 6 Daily (2-5x) 7 Weekly (3x) 7 Daily 4 Daily (1-3 x/day) 5 Daily (3-5 x/day) 2. Bees 5 Constant 6 Hourly 8 Weekly (3x) 1 Weekly 2 Daily (1-2x) 0 Weaned 5 Daily (5-7x/day) 4 Weekly 3. Kincaid Bees 5 Constant 7 Hourly 8 Daily 1 Weekly 0 Weaned 0 Weaned 0 weaned 0 Weaned 4. Copropraxia 3 Constant 5 Daily 7 Daily 4 Hourly 6 Hourly 4 Daily (3-4x) 6 Weekly (1-3x/wk) 5 Daily (4-6 x/day) 5. Coprolalia 4 Constant 7 Hourly 8 Constant 7 Constant 7 Constant 4 Hourly 6 Daily (5-7x/day) 5 Hourly 6. Lateral neck flexion 6 Daily 6 Daily (7-8x) 6 Constant 8 Constant (reports pain from tic) 5 Weekly 8 Hourly 3 Weekly (1-3x/wk) 7 Constant All neck tics pair together 7. Neck hyperextension 6 Daily 4 Weekly (3x) Weaned this week 8 Hourly 4 Daily 4 Daily (5x) 4 Weekly (1-3x/wk) 7 Constant All neck tics pair together 8. Neck protraction 6 Daily 2 Weekly Weaned this week 9 Constant 4 Daily 6 Hourly 1 Weaned 7 Constant All neck tics pair together 9. Neck rotation 7 Daily 4 Weekly (3x) 8 Constant (pain and spasms with tic) 10 Constant 0 Weaned 9 Daily 4 Weekly (1-3x/wk) 7 Constant All neck tics pair together 10. I have drugs 10 Around law enforcement, weekly 0 No opportunity this week 10 Weekly 0 weaning 10 Weekly (3-4x) (on vacation) 0 Weaned 0 Weaned 0 Weaned 12. Karate kick 4 weekly 0 Weaned 6 Weekly (2-3) 0 weaning 0 Weaned 7 Daily 1 Weaned 4 Weekly 12. Fag 5 Daily, in response to sibling 5 Weekly (3x) 7 Weekly (3-4x) 1 Weekly 8 Hourly 8 Hourly 5 Daily (3-5x/wk) 4 Weekly 13. Bees in my edy 8, Daily 0 Weaned 0 Weaned 0 Weaned 0 Weaned 0 Weaned 0 Weaned 0 Weaned 14 I'm finch, no gender here Changed: gender-related tic 10, weekly (2-3 times a week) 10 Weekly 7 Weekly (3-4x) 0 Weaned 10 Daily 9 Weekly (3x) 0 Weaned 0 Weaned 15. Worms word/phrase o worm 6 Constant 16. Murder word/phrase I brought you murder and I am going to kill my mom 5 Constant Tic Distress Monitoring Form (04/11/2021 - not completed as ct struggled to focus and attend to answer questions. Mention of tics also increased tic actions) Tic name/ description How bothersome is it (distress scale) Session # 1 2 3 4 5 6 7 8 Date 02/23 04/18 04/27 Punching Tic: anxiety about punching sister/mother 7 7 6 - CBIT CR Relief Scale (0/10 not helping manage tics and 10/10 consistently manage tics) - Punching tic CR: Not using CR at this time. - bees tic CR: Not using CR at this time. - bird tic CR: Not using CR at this time. - worm or o worm tic CR: Not using CR at this time. - Murder , I brought you murder and I am going to kill my mom tic CR: Not using CR at this time. Education provided this session: Client and Mother were educated on: - OT POC for today and next session. Client/family verbalized Fair understanding and shows need for further education/reinforcement. Assessment: Session this week focused ed on CBIT strategies. Ct's tic frequency continue to managedby medication changes. Eating continues to progress to ct eating more complete meals; 50% of meals to 100% of meals. Sleep hygiene was poor last night and OTR will address sleep hygiene if sleep issues continues to be poor. CBIT HEP failed 2/[address] was working on weaning. Re- education on how to catch tics was worked on in session. Ct in session was more successful catching ze's worm tic than other vocal tics. Urge is the same as well 1st motor action. Competing Response (CR) was issued and successful on 1st attempt. HEP was issued to trial CR with bees , bird , worm or o worm , Murder , I brought you murder and I am going to kill my mom tics to assess if ct can be successful using a CBIT CR. OTR id that if in next 1-[address] is nit able to use CR successful tx protocol will be shifted to tic health and safety trainer. Ct will benefit from continued OT [...] in 4 weeks. Fair verbal awareness on 04/06 weeks Skilled ed on stress management on 1 wk's Skilled ed on tic management strategies on 2/2 wk's Progressing (04/27/2021) 4. Client will implement 1-2 adaptive strategies to facilitate management of triggers resulting in increasing management of tic disorder on ?? weeks in 8 weeks. Skilled ed on sensory/emotional/environmental triggers of tics on 4/4 wk's. Progressing (04/11/2021) 5. Client will catch tic at 70% accuracy on 57 days per parent report to increase awareness of premonitory urge to facilitate tic management in 4 weeks. Met on 2/3 sessions within session for punching tic. Partially met (40%) on 10/01 sessions within session for worm tic. Progressing (04/27/2021) 6. Client will eat 3 meals a day on 3/4 weeks within 2 months. 100 % of zero meals, on 2/2 wk's Progressing (04/27/2021) Residential Goals: 1. Client and caregiver will create and implement a competing response with minimal verbal cues across 2 sessions in 8 weeks. Met on 2/3 sessions Progressing (04/27/2021) 2. Client will use the competing response [...] and parents within 2 months. Met on 02/04 wk's. Progressing (04/27/2021) 4. Client will be able to self [...] discussed with: Patient and Family Start time: 904 End time: 958 documented in this encounter Plan of Treatment Not on file documented as of this encounter Visit Diagnoses Diagnosis Tic disorder- Primary Tic disorder, unspecified documented in this encounter Care Teams Engineering Secretary Relationship Specialty Start Date End Date Cortney Pineda NP [address] [place] [address] PCP - General 06/09/19 Bassem Cho MD [address] [place] [id number] 12/20/18 Vicky Ramachandran OT [address] [place] [address] Occupational Therapist Occupational Therapy 04/19/21 documented as of this encounter
--- OUTSIDE RECORDS SUMMARY | 2024-10-16 03:37 | XMS_ITS | Encounter Summary ---
Author Organization [facility] Healthcare Address [address] [place] [address] Care Team Providers Care Trauma Therapist Name Role Phone Bassem Cho MD Unavailable [phone] Cortney Pineda NP Primary Care Provider [phone] Reason for Referral * Diagnostic Imaging (Routine) - Closed Specialty Diagnoses / Procedures Referred By Contac t Referred To Contact Radiology Diagnoses Nonspecific paroxysmal spell Procedures MRI Brain WO Contrast Marco Myles MD Phone: tel: fax: [address] [phone] Referral ID Status Reason Start Date Expiration Date Visits Re quested Visits Authorized [id number] Closed 05/11/2019 11/19/2020 1 1 Reason for Visit * Diagnostic Imaging (Routine) - Closed Specialty Diagnoses / Procedures Referred By Contac hilary Referred To Contact Radiology Diagnoses Nonspecific paroxysmal spell Procedures MRI Brain WO Contrast Marco Myles MD Phone: tel: fax: [address] [phone] Referral ID Status Reason Start Date Expiration Date Visits Re quested Visits Authorized [id number] Closed 05/11/2019 11/19/2020 1 1 Encounter Details Date Type Department Care Team (Latest Contact Info) Description 06/09/2019 1:03 PM CDT - 06/09/2019 11:59 PM CDT Hospital Encounter [facility] [place] [address] Marco Myles MD [address] [place] [address] Nonspecific paroxysmal spell Discharge Disposition: Discharge to home or self care Social History Tobacco Use Types Packs/Day Years Used Date Smoking Tobacco: Never Smokeless Tobacco: Never Alcohol Use Standard Drinks/Week Comments No 0 (1 standard drink = 0.6 oz pur e alcohol) Comments Unknown Sex and Gender Information Value Date Recorded Sex Assigned at Not on file 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 01/07/2021 9:24 AM CDT [...] needed for wheezing or shortness of breath clonazePAM (KlonoPIN) 1 mg tablet Take 1 [...] BY MOUTH AT BEDTIME 0 05/29/2018 2 norgestimate-ethi nyl estradiol (ORTHO-CYCLEN) 0.25-35 mg-mcg per [...] 2 1 documented as of this encounter Discharge Disposition Disposition Code Departure Means Destination Discharge to home or self care documented in this encounter Plan of Treatment Not on file documented as of this encounter Procedures Procedure Name Priority Date/Time Associated Diagnosis Comments MRI BRAIN WO CONTRAST Schedule Routine, Read Routine (OP Routine) 06/09/2019 2:00 PM CDT Nonspecific paroxysmal spell documented in this encounter Results * MRI Brain WO Contrast (06/09/2019 2:00 PM CDT) Anatomical Region Laterality Modality Head and Neck N/A Magnetic Resonan ce 06/09/2019 4:01 PM CDT Impressions 06/09/2019 4:32 PM CDT Normal MRI of the brain Dictated by: Blank Villasenor M.D. The radiology attending physician has personally reviewed this study, and had reviewed and/or edited this written report and agrees with it. Electronically signed by: Martin Medeiros M.D. Narrative 06/09/2019 4:32 PM CDT EXAMINATION: MRI BRAIN WO CONTRAST HISTORY: 13-year-old girl with concern for seizures TECHNIQUE: Multiplanar multi-weighted MRI of the brain and brainstem was performed without intravenous contrast using the general brain protocol. COMPARISON: None available. FINDINGS: Evaluation of the frontal lobes and inferotemporal lobes is suboptimal secondary to susceptibility artifact. The scalp and calvarium are normal. ?? The superior sagittal sinus demonstrates normal venous flow. ??The corpus callosum is normal in shape and signal intensity. ??The posterior fossa is unremarkable. The pituitary and sella are normal. ??The brainstem and craniocervical junction are unremarkable. Diffusion weighted images reveal no hyperintensities to suggest acute cerebral infarction. ??The susceptibility weighted sequences reveal no evidence of acute or chronic hemorrhage. ??The ventricles are normal in size and position without evidence of hydrocephalus . The paranasal sinuses are normal. ??The visualized portions of the mastoids are unremarkable. ??The orbits appear normal. ??Normal flow voids are demonstrated in the carotid arteries and basilar artery. Procedure Note Martin Medeiros III, MD PhD - 06/09/2019 EXAMINATION: MRI BRAIN WO CONTRAST HISTORY: 13-year-old girl with concern for seizures TECHNIQUE: Multiplanar multi-weighted MRI of the brain and brainstem was performed without intravenous contrast using the general brain protocol. COMPARISON: None available. FINDINGS: Evaluation of the frontal lobes and inferotemporal lobes is suboptimal secondary to susceptibility artifact. The scalp and calvarium are normal. The superior sagittal sinus demonstrates normal venous flow. The corpus callosum is normal in shape and signal intensity. The posterior fossa is unremarkable. The pituitary and sella are normal. The brainstem and craniocervical junction are unremarkable. Diffusion weighted images reveal no hyperintensities to suggest acute cerebral infarction. The susceptibility weighted sequences reveal no evidence of acute or chronic hemorrhage. The ventricles are normal in size and position without evidence of hydrocephalus . The paranasal sinuses are normal. The visualized portions of the mastoids are unremarkable. The orbits appear normal. Normal flow voids are demonstrated in the carotid arteries and basilar artery. IMPRESSION: Normal MRI of the brain Dictated by: Blank Villasenor M.D. The radiology attending physician has personally reviewed this study, and had reviewed and/or edited this written report and agrees with it. Electronically signed by: Martin Medeiros M.D. Marco Myles MD IMG MRI PROCEDURES Fin al Result documented in this encounter Visit Diagnoses Diagnosis Nonspecific paroxysmal spell documented in this encounter Care Teams Trauma Therapist Relationship Specialty Start Date End Date Cortney Pineda NP [address] [place] [address] PCP - General 06/09/19 Bassem Cho MD [address] [facility] [address] [place] [address] 12/20/18 documented as of this encounter
--- OUTSIDE RECORDS SUMMARY | 2024-10-16 03:37 | XMS_ITS | Encounter Summary ---
Author Organization [facility] Address [address] [place] [address] Phone Care Team Providers Care Foam Charger Name Role Phone Bassem Cho MD Unavailable [phone] Cortney Pineda NP Primary Care Provider [phone] Encounter Details Date Type Department Care Team (Late st Contact Info) Description 04/06/2021 Telephone [facility] Neurology [address] [place] [address] Negrita Pride MD PhD [id number] [place], [place] [id number] Social History Tobacco Use Types Packs/Day Years Used Date Smoking Tobacco: Never Smokeless Tobacco: Never Alcohol Use Standard Drinks/Week Comments No 0 (1 standard drink = 0.6 oz pur e alcohol) Comments No Sex and Gender Information Value Date Recorded Sex Assigned at Not on file 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 01/07/2021 9:24 AM CDT Sexual Orientation Not on file documented as of this encounter Last Filed Vital Signs Vital Sign Reading Time Taken Comments Blood Pressure - - Pulse - - Temperature - - Respiratory Rate - - Oxygen Saturation - - Inhaled Oxygen Concentration - - Weight 54.4 kg (120 lb) 04/06/2021 3:08 PM CDT p er mother Height - - Body Mass Index - - documented in this encounter Ordered Prescriptions Prescription Sig Dispense Quantity Refills Last Filled Start Date End Date cloNIDine (CATAPRES) 20 mcg/mLIndications: Tourettes syndrome Take 5 mL (100 mcg total) by mouth nightly 150 mL 04/07/2021 documented in this encounter Miscellaneous Notes * Telephone Encounter - Kirti Beth RN - 04/07/2021 1:42 PM CDT Noted. Psychiatrist number listed. Dr Kristen Diaz [phone]. Thanks for clarifying * Telephone Encounter - Negrita Pride MD PhD - 04/07/2021 1:12 PM CDT Correct no VPA from us, but would like to talk with her psych * Telephone Encounter - Kirti Beth RN - 04/07/2021 9:24 AM CDT Clonidine 100mcg (5ml) qhs sent to [facility] in [place], [place] per request. * Telephone Encounter - Kirti Beth RN - 04/06/2021 4:46 PM CDT Outgoing call to mom. Discussed with mom she should start clonidine 0.1mg qhs and call with an update in 1 week. Mom provided psychiatrist information for dr pride as listed below. Clonidine rx pended and sent for verification to dr pride. Dr Kristen Diaz [phone] Dr Pride: That is correct. She does not take VPA d/t the pill size. I have pended her clonidine rx for you toreview. To confirm, I see that we never prescribed the VPA here, you do not want her to resume thisin liquid formation, correct? * Telephone Encounter - Negrita Pride MD PhD - 04/06/2021 4:09 PM CDT So she is taking the effexor and clonazepam and is prescribed VPA but not taking it, is that correct? So I think we should start Clonidine the liquid formulation 0.1mg qHS. I also think I should talkto psychiatrist -- can you get that contact info for me? They should call in 1 week with update * Telephone Encounter - Kirti Beth RN - 04/06/2021 3:03 PM CDT 54.4kg (*weight decreased) Meds: effexor 150mg once daily Klonopin 1mg TID Outgoing call to mom. Mom states Lexie has not tried guanfacine or clonidine yet. Mom states she is willing to try anything at this point. Mom states her arms are covered in bruises because Lexie keeps biting her. The tics have been worsening for the past couple of weeks. Vocal tics have been increasing for quite some time per mom. A lot of the vocal tics are screams now. She has a tic where she is forced to hold her breath or put her hand over her mouth to where she cannot breath. She has one where she willpunch herself as well. She has been steadily loosing weight. She has a hard time remembering to eat. Mom tries to get her to eat at least 5 bites but that is all she will take sometimes per mom. She is not sleeping well because she is ticing in her sleep. Tics are in sleep include sounds, moving different body parts and facial grimaces. Her psychiatrist prescribes both of the medications she is currently taking. She has tried VPA and advair (the other two medications she is currently prescribed). She will take the advair sometimes, but forgets this a lot per mom. She can't swallow the VPA pill. Mom states liquid form would be better. Mom states telling her the medication is poison is how we get her to take the medicine because shehas a tic that says its poison let me take it . Mom states Lexie knows that the medication is not poison, but this is what is working at the moment so we are going with it. Bothersome to pt: yes Interfering with daily life: Yes Can tic be interrupted: Some of them can (head banging tic mom provides counter pressure until it passes). The biting tic, if mom pinches her jaw joint, applying pressure it will pop open mom states.She cannot stop any of the tics herself however. S/E of meds: Denies Mom states she had to miss her appointment today due to appointment with OT. Dr Pride: What are your thoughts? * Telephone Encounter - Kirti Beth RN - 04/06/2021 2:57 PM CDT Negrita Pride MD PhD at 04/06/2021 ??2:53 PM Status: Signed Can someone please call this family. Her [...] own and others arms,banging head on table. ?? Can you ask what medications she is ACTUALLY taking and whether she has been on Clonidine or Guanfacine before? ?? documented in this encounter Plan of Treatment Not on file documented as of this encounter Visit Diagnoses Diagnosis Tourettes syndrome- Primary Tourette's disorder documented in this encounter Care Teams Foam Charger Relationship Specialty Start Date End Date Cortney Pineda NP [address] [place] [address] PCP - General 06/09/19 Bassem Cho MD [address] [facility] [address] [place] [address] 12/20/18 documented as of this encounter
--- OUTSIDE RECORDS SUMMARY | 2024-10-16 03:37 | XMS_ITS | Encounter Summary ---
Author Organization [facility] Healthcare Address [address] [place] [address] Care Team Providers Care Tubing Tester Name Role Phone Bassem Cho MD Unavailable [phone] Cortney Pineda NP Primary Care Provider [phone] Reason for Referral * Neurology (Routine) - Closed Specialty Diagnoses / Procedures Referred By Juana richard Referred To Contact Neurology Diagnoses Nonspecific paroxysmal spell Procedures EEG Marco Myles MD Phone: tel: fax: Referral ID Status Reason Start Date Expiration Date Visits Re quested Visits Authorized [id number] Closed 05/11/2019 11/19/2020 1 1 Reason for Visit * Neurology (Routine) - Closed Specialty Diagnoses / Procedures Referred By Juana richard Referred To Contact Neurology Diagnoses Nonspecific paroxysmal spell Procedures EEG Marco Myles MD Phone: tel: fax: Referral ID Status Reason Start Date Expiration Date Visits Re quested Visits Authorized [id number] Closed 05/11/2019 11/19/2020 1 1 Encounter Details Date Type Department Care Team (Latest Contact Info) Description 06/09/2019 11:00 AM CDT - 06/09/2019 1:02 PM CDT Hospital Encounter [facility] [place] [address] Lorenza Mares MD PhD [address] [place] [address] Nonspecific paroxysmal spell Discharge Disposition: Discharge to home or self care Social History Tobacco Use Types Packs/Day Years Used Date Smoking Tobacco: Never Smokeless Tobacco: Never Alcohol Use Standard Drinks/Week Comments No 0 (1 standard drink = 0.6 oz pur e alcohol) Comments Unknown Sex and Gender Information Value Date Recorded Sex Assigned at Not on file 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 01/07/2021 9:24 AM [...] Procedure Name Priority Date/Time Associated Diagnosis Comments EEG Routine 06/09/2019 12:26 PM CDT Nonspecific paroxysmal spell documented in this encounter Results * EEG (06/09/2019 12:26 PM CDT) Anatomical Region Laterality Modality EEG Narrative 06/09/2019 4:52 PM CDT Routine EEG Report Patient Name: LEXIE NUR [facility] Medical Record Number (MRN): [id number] [facility] Medical Record Number (MRN): [id number] Date of (): 2005 EEG Date: 06/09/2019 Location: [facility] EEG Laboratory Ordering Provider: Marco Myles MD CC: Cortney Pineda History (from information technology program manager sheet): Lexie is a 13 ??y.o. 10 ??m.o. girl undergoing EEG for evaluation of seizure(s). She has a history of episodes of whole body jerking lasting a few minutes. ?? Medications: Depakote, clonazepam, Effexor, Orapred?, Katy, symbicort, albuterol EEG technical description: A routine EEG with scalp electrodes was performed using the [employer] monitoring system to record EEG data digitally. ??The standard 10-20 electrode placement system was used. ??A variety of referential and bipolar montages were used to analyze the data. ??All voltages reported were measured peak to peak in a longitudinal bipolar montage unless indicated otherwise. ??The duration of the study was 47:54 minutes. The study ran from 11:55-12:43 on 06/09/2019. ?? EEG recording description: During the awake state with eyes closed the background includes a 11 Hz posterior dominant rhythm which attenuates appropriately with eye opening.. There is a well-developed anterior-posterior gradient. The recording is continuous. No significant asymmetries of the background activity occurred. With drowsiness, there is waxing and waning of the dominant rhythm with eventual replacement by a mixture of beta, alpha and theta activity. ?? During stage II sleep vertex sharp waves and symmetric sleep spindles are seen. ??Arousal is unremarkable. During three minutes of hyperventilation there is a buildup of diffuse slow activity but no further activation of epileptiform activity. Photic stimulation using a step-vang increase in photic frequency results in no driving responses and no further activation of epileptiform activity. No interictal epileptiform activity is noted. No clinical or electrographic seizures were identified during the recording. ?? A single channel ECG showed a regular rate and rhythm. Interpretation: This EEG in the awake and asleep states is normal. However the diagnosis of a seizure remains a clinical one and a normal EEG does not exclude this diagnosis.. ?? Angella Lawler MD Attending in Pediatric Epilepsy Marco Myles MD NEUROLOGY ORDERABLES F inal Result documented in this encounter Visit Diagnoses Diagnosis Nonspecific paroxysmal spell documented in this encounter Care Teams Tubing Tester Relationship Specialty Start Date End Date Cortney Pineda NP [address] [place] [address] PCP - General 06/09/19 Bassem Cho MD [address] [facility] [address] [place] [address] 12/20/18 documented as of this encounter
--- OUTSIDE RECORDS SUMMARY | 2024-10-16 03:37 | XMS_ITS | Encounter Summary ---
Author Organization [facility] Healthcare Address [address] [place] [address] Care Team Providers Care Wrap Checker Name Role Phone Bassem Cho MD Primary Care Provider Bassem Cho MD Unavailable [phone] Encounter Details Date Type Department Care Team (Late st Contact Info) Description 02/15/2019 8:14 PM CDT - 02/15/2019 11:54 PM CDT Hospital Encounter [address] [address] Unknown, Gilbert Gordillo MD [address] [address] Discharge Disposition: Discharge to home or self care Social History Tobacco Use Types Packs/Day Years Used Date Smoking Tobacco: Never Smokeless Tobacco: Never Alcohol Use Standard Drinks/Week Comments No 0 (1 standard drink = 0.6 oz pur e alcohol) Comments Unknown Sex and Gender Information Value Date Recorded Sex Assigned at Not on file 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 01/07/2021 9:24 AM CDT Sexual Orientation Not on file documented as of this encounter Last Filed Vital Signs Vital Sign Reading Time Taken Comments Blood Pressure 108/62 02/15/2019 8:27 PM CDT Pulse 104 02/15/2019 8:27 PM CDT Temperature 36.8 ??C (98.2 ??F) 02/15/2019 8:27 PM CD T Respiratory Rate - - Oxygen Saturation 99% 02/15/2019 8:27 PM CDT Inhaled Oxygen Concentration - - Weight 63.5 kg (140 lb) 02/15/2019 8:27 PM CDT Height 162.6 cm (5' 4 ) 02/15/2019 8:27 PM CDT Body Mass Index 24.03 02/15/2019 8:27 PM CDT Body Mass Index Percentile 86.43% 02/15/2019 8:2 7 PM CDT Growth Chart: [facility] (Girls, 2- 20 Years) documented in this encounter Medications at Time [...] needed for wheezing or shortness of breath buPROPion XL (WELLBUTRIN XL) 300 mg 24 [...] 05/07/20 19 documented as of this encounter Discharge Disposition Disposition Code Departure Means Destination Discharge to home or self care documented in this encounter Plan of Treatment Not on file documented as of this encounter Procedures Procedure Name Priority Date/Time Associated Diagnosis Comments XR CHEST PA LATERAL 2 VIEWS 02/15/2019 12:00 AM CDT documented in this encounter Results * XR Chest Pa Lateral 2 Views (02/15/2019 12:00 AM CDT) Anatomical Region Laterality Modality Body, Chest N/A Radiographic Veda ging 02/15/2019 10:5 2 PM CDT Narrative 02/15/2019 10:54 PM CDT Patient Name: LEXIE OCONNELL ?Ordering Dr: Gilbert Sneed MD ?? D.O.B: 2005 ? Exam Date: 02/15/19 ?? 0000 ?? Age: 13 ?Sex: Female ? MR#: [id number] ?? Loc: ? RADIOLOGY REPORT ?? Order #[id number] ?? Radiology ? Chest 2 Views ? Signed ?? EXAM DESCRIPTION: ??Chest 2 Views ? REASON FOR STUDY: ??Chest tightness and pain for 2 days, worse today, HX asthma. ? TECHNIQUE: ??Frontal and lateral radiographic views of the chest acquired.. ? Patient was shielded. ? COMPARISON: ??None ? FINDINGS: ? LUNGS/PLEURA: Lung volumes are normal and symmetric. ??No pneumothorax. ??No ?? effusion. ??No infiltrate. ??No congestive failure. ? HEART/MEDIASTINUM: Cardiac size normal. ??Mediastinal contour normal. ? HARDWARE/LINES/TUBES: None. ? BONES: No acute findings. ? OTHER: No other significant finding. ? IMPRESSION: ??No acute cardiopulmonary abnormality. ? THIS IS AN ELECTRONICALLY VERIFIED FINAL REPORT ?? 02/15/2019 10:54 PM - Electronically signed by Kentrell Elizabeth M.D. ?? Kentrell Elizabeth M.D. ? RL ?? D: ??02/15/2019 10:54 PM ?? T: ? Report ID: [id number] ?? Reading Location: ??[id number] ? REPORT ELECTRONICALLY SIGNED IN OTHER VENDOR SYSTEM ?? Resulting Agency Comment E Procedure Note Kentrell Elizabeth MD - 02/15/2019 Patient Name: LEXIE OCONNELL Dr: Gilbert Sneed MD D.O.B: 2005 Exam Date: 02/15/19 0000 Age: 13 Sex: Female MR#: [id number] Loc: RADIOLOGY REPORT Order #[id number] Radiology Chest 2 Views Signed EXAM DESCRIPTION: Chest 2 Views REASON FOR STUDY: Chest tightness and pain for 2 days, worse today, HXasthma. TECHNIQUE: Frontal and lateral radiographic views of the chestacquired.. Patient was shielded. COMPARISON: None FINDINGS: LUNGS/PLEURA: Lung volumes are normal and symmetric. No pneumothorax.No effusion. No infiltrate. No congestive failure. HEART/MEDIASTINUM: Cardiac size normal. Mediastinal contour normal. HARDWARE/LINES/TUBES: None. BONES: No acute findings. OTHER: No other significant finding. IMPRESSION: No acute cardiopulmonary abnormality. THIS IS AN ELECTRONICALLY VERIFIED FINAL REPORT 02/15/2019 10:54 PM - Electronically signed by Kentrell Elizabeth M.D. T: Report ID: [id number] Reading Location: [place] [address] REPORT ELECTRONICALLY SIGNED IN OTHER VENDOR SYSTEM Gilbert Sneed MD IMG XR PROCEDURES Fin al Result documented in this encounter Visit Diagnoses Not on filedocumented in this encounter Care Teams Wrap Checker Relationship Specialty Start Date End Date Bassem Cho MD [address] [facility] [address] [place] [address] PCP - General Pediatrics 12/20/18 06/08/19 Bassem Cho MD [address] [facility] [address] [facility] [place] [address] 12/20/18 documented as of this encounter
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
--- OUTSIDE RECORDS SUMMARY | 2024-10-16 03:37 | XMS_ITS | Encounter Summary ---
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 by mouth every morning. Side effects 07/05/2018 05/07/2019 nabumetone (RELAFEN) 500 mg tablet Take 500 mg by mouth 2 (two) times a day. Side effects 05/07/2019 ondansetron ODT (ZOFRAN-ODT) 4 mg disintegrating tablet Take 1 tablet (4 mg total) by mouth every 8 (eight) hours as needed for nausea or vomiting. 11/15/2018 05/07/2019 traZODone (DESYREL) 100 mg tablet Take 100 mg by mouth nightly. at bedtime. Side effects 10/19/2018 05/07/2019 documented as of this encounter Historical Medications * This list may reflect changes made after this encounter. venlafaxine XR (EFFEXOR-XR) 150 mg 24 hr capsule daily 04/28/2019 07/05/20 21 pimozide (ORAP) 2 mg tablet Take 2 mg by mouth 2 (two) times a day 04/29/2019 07/05/2021 added in this encounter Care Teams Collar Trimmer Relationship Specialty Start Date End Date Bassem Cho MD [address] [place] [address] PCP - General Pediatrics 12/20/18 06/08/19 Bassem Cho MD [address] [place] [address] 12/20/18 documented as of this encounter
--- OUTSIDE RECORDS SUMMARY | 2024-10-16 03:37 | XMS_ITS | Encounter Summary ---
Author Organization [facility] Address [address] [place] [address] Phone Care Team Providers Care Senior Product Manager Name Role Phone Bassem Cho MD Unavailable [phone] Cortney Pineda NP Primary Care Provider [phone] Reason for Visit * Neurology (Routine) - Closed Specialty Diagnoses / Procedures Referred By Juana richard Referred To Contact Pediatrics / Pediatric Neurology Diagnoses f/u Procedures RETURN Bassem Cho MD Phone: tel: fax: Marco Myles MD [address] [place] [address] Phone: tel: fax: Referral ID Status Reason Start Date Expiration Date Visits Re quested Visits Authorized [id number] Closed 08/19/2019 02/27/2021 1 1 Encounter Details Date Type Department Care Team (Late st Contact Info) Description 08/19/2019 4:00 PM DIRECTOR OF HOME ECONOMICS Office Visit [facility] Pediatric Neurology [facility] 2nd [place] [address] [place] [id number] Marco Myles MD [address] [place], [place] [id number] Difficulty sleeping (Primary Dx); Migraine with status migrainosus, not intractable, unspecified migraine type; Tic disorder Social History Tobacco Use Types Packs/Day Years Used Date Smoking Tobacco: Never Smokeless Tobacco: Never Alcohol Use Standard Drinks/Week Comments No 0 (1 standard drink = 0.6 oz pur e alcohol) Comments Unknown Sex and Gender Information Value Date Recorded Sex Assigned at Not on file Legal Sex Female 6:43 AM DIRECTOR OF HOME ECONOMICS Gender Identity . 01/07/2021 9:24 AM CDT Sexual Orientation Not on file documented as of this encounter Last Filed Vital Signs Vital Sign Reading Time Taken Comments Blood Pressure 116/68 08/19/2019 4:03 PM DIRECTOR OF HOME ECONOMICS Pulse 90 08/19/2019 4:03 PM DIRECTOR OF HOME ECONOMICS Temperature - - Respiratory Rate 20 08/19/2019 4:03 PM DIRECTOR OF HOME ECONOMICS Oxygen Saturation - - Inhaled Oxygen Concentration - - Weight 70.5 kg (155 lb 8 oz) 08/19/2019 4:03 PM DIRECTOR OF HOME ECONOMICS Height 162.8 cm (5' 4.09 ) 08/19/2019 4:03 PM CS T Body Mass Index 26.61 08/19/2019 4:03 PM DIRECTOR OF HOME ECONOMICS Body Mass Index Percentile 92.69% 08/19/2019 4:0 3 PM DIRECTOR OF HOME ECONOMICS Growth Chart: [facility] (Girls, 2- 20 Years) documented in this encounter Patient Instructions * Patient Instructions* Marco Myles MD - 08/19/2019 4:00 PM DIRECTOR OF HOME ECONOMICS Increase cyproheptadine to 4 mg twice daily. Please let me know if you are having trouble with sedation on this medication. I will plan to reach out to your psychiatrist regarding additional medication changes. I will place a referral to Sleep Neurology. Please contact me if you do not hear from them regarding scheduling in the next 1-2 weeks. I would like to see you back in four months. Migraine & Headaches - Recommend limiting or avoiding caffeine. - Avoid bright lights and computer/phone screens during headache. Limit screen time as a whole if it is a trigger for you. - Get plenty of sleep (at least 8 hours nightly) and drink plenty of water (at least 72 oz daily). Also recommend daily aerobic exercise. - Limit over the counter analgesics such as ibuprofen, naproxen, ketorolac, [...] keeping a headache diary or using the [employer] rodo to improve understanding of personal headache patterns. - Please call the Pediatric Neurology office at [phone] Myles of worsening migraine or missed school due to migraine symptoms. CTOR OF HOME ECONOMICS CTOR OF HOME ECONOMICS CTOR OF HOME ECONOMICS documented in this encounter Progress Notes * Marco Myles MD - 08/19/2019 4:00 PM CST Patient Name: LEXIE NUR Medical Record Number (MRN): [id number] Date of (): 2005 Encounter Date: 08/19/2019 [facility] Chief Complaint: Lexie Nur is a 14 y.o. female seen today as a return outpatient visit for migraine and abnormal movements (motor and vocal tics). Lexie is accompanied to clinic todayby her mother and her youngest sister. Lexie was last seen in my clinic on May 07, 2019. Portions of today's note were copied from my prior documentation and reviewed, confirmed, and edited as appropriate. History of Present Illness Lexie Nur is a 14 y.o. female with migraines, anxiety, panic attacks, depression, and bipolar disorder who I first saw in May 2019 for evaluation of worsening migraines, abnormal movements (motor and vocal tics), and nonspecific paroxysmal spells. Migraines When I first saw Lexie she reported worsening frequency of previously well- controlled migraines. Headaches were typically right temporal and associated with photophobia, phonophobia, nausea, vomiting, and dizziness. These were occurring multiple times weekly. Lexie would typically take ibuprofen and/or acetaminophen as an abortive with variable but incomplete improvement. She endorsed sleeping poorly at night, but sleeping better during the day. She estimated 6-16 hours of sleep in a 24-hour period. Given concern for side effects with typical migraine prophyalxis medications (amitriptyline, topiramate, propranolol), elected to begin cyproheptadine 2 mg BID. Family was to call in four weeks to provide an update and discuss increase to 4 mg BID, however they did not subsequently reach out. Recommended continuing ibuprofen as abortive regimen with plans to escalate to rizatriptan if needed. Lifestyle modifications were also discussed with particular focus on improving sleep habits. Since that time, she continues to have headaches a few times a week on cyproheptadine. Family is unsure if they are taking 2 mg twice daily or 4 mg twice daily (they have not run out of medication written for 2 mg twice daily). She endorses continued difficulty sleeping with significant variations in both amount of sleep and timing of sleep periods. She endorses both excessive fatigue and difficulty with initiating sleep. She denies hypnagogic and hypnopompic hallucinations. She denies symptoms suggestive of cataplexy. She denies history of sleep paralysis. She does not specifically note morning headaches or fatigue. Her mother reports that there is a strong family history of obstructive sleep apnea. Abnormal Movements At first clinic visit, Lexie reported developing abnormal movements over the previous year concerning for tic. These initially manifest as jerking movements of the trunk, however they progressed to involve several other body parts with time. She had also developed vocal tics in the 3-4 months prior to presentation. Lexie reported that it was painful when she was trying to hold back a tic, andthat she felt a build up of these painful feelings until she finally feels the need to tic. Tics worsened during times of stress and also were very suggestible. At last visit I had recommended CBITtherapy, however she was unable to be seen until August 13 when she met with Dr. Dash. At that time overview of CBT focused on habit reversal therapy with initial guidance on strategies was provided. She will be transitioned to Dr. Avina's care for further focus on CBIT (family reports being unaware of this transition). Since that visit, Lexie and her family report they have made efforts to incorporate behavioral interventions. They report that if Lexie makes her high pitched sounds family will ignore this at first, and with the second verbal tic family will make a low pitched noise at her. This redirects her and stops the tic. She also has developed a method of controlling motor tics, where she will grab her arm and squeeze it firmly across her chest. She continues to manifest a relatively even blend ofverbal and motor tics. Lexie feels her frequency is improved overall, though her mother is unsure of this. They agree that her tics are more common later in the day when Lexie is tired, and also in periods of anxiety. They agree symptoms improve in periods of deep relaxation. Spells Lexie had previously been seen in the [facility] by Dr. Gissel Mccarthy for recurrent episodes of her legs giving out. These resolved following that initial clinic visit and no further evaluation was performed. When I first met Lexie she reported a spell several weeks prior to the visit. She was at a concert where flashing lights made her feel dizzy, like she wasn't present. Later in the car ride home she had convulsions (her mother was notwith her at the time and no additional details of this spell are available). When Lexie got home she seemed out of it and was shaking everywhere and jerking in different directions. There had been no prior spells of this semiology, however she did report intermittently having spells where she would lose her balance without and falls or alteration of consciousness. Due to lack of clarity regarding details of this spell, workup was pursued consistent with evaluation for new onset seizure. Routine EEG was normal in awake and asleep states. Brain MRI was obtained and was normal (though limited by artifact from braces). Since that time, there have been no further spells concerning for seizure. Summary of Past Studies Routine EEG (06/09/2019): This EEG in the awake and asleep states is normal. However the diagnosis of a seizure remains a clinical one and a normal EEG does not exclude this diagnosis. MRI Brain WO Contrast (06/09/2019): Normal MRI of the brain. MRI Lumbar Spine WO Contrast (10/24/2017): Annular fissure at L5-S1 as well as a possible developing annular fissure at L4- L5. ??These may represent the source of the patient's pain. 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 She weighed 2lb 6oz. She washospitalized in the NICU for 8 weeks, and was discharged on supplemental oxygen. She remained on supplemental oxygen until age 6 months.?? Past Medical History Patient Active Problem List Diagnosis ??? Mild persistent asthma ??? Anxiety ??? Depression ??? Bipolar 1 disorder, Anxiety ??? Menorrhagia ??? Panic attacks ??? Migraine with status migrainosus, not intractable ??? Tic disorder Lexie's psychiatric symptom onset was very sudden has been progressive. There have been four psychiatric hospitalizations and a suicide attempt two years prior to my first meeting with her. Lexie continues to follow closely with a counselor/therapist and psychiatrist (Dr. Caitlin Kwon) for her psychiatric diagnoses. Past Medical History: Diagnosis Date ??? Dorsalgia Mid back pain - (Added by TW Teo) ??? Metatarsal fracture ??? Migraines ??? Prematurity 29 weeks Past Surgical History: Procedure Laterality Date ??? NO PAST SURGERIES Immunization Status Up to date. Medications Current Outpatient Medications on File Prior [...] hr capsule daily No current facility-administered medications on file prior [...] Leiden deficiency Maternal Grandmother Social History Lexie lives with her parents and two younger sisters. Denies recent significant social stressors. Denies substance use. Lexie's headaches began in 2nd grade and she subsequently missed many days ofschool. She began homebound instruction in 7th grade after developing severe anxiety and suicidality. In 8th grade she attempted a return to half-day school, but again struggled with mental health concerns. She has returned to school for 9th grade. She has an IEP which provides accommodations including a leave early pass (allows her to leave the classroom whenever she wants) and ability to use calming strategies such as drawing during class. Her attendance has improved significantly. Review of Systems A complete 10 system ROS was reviewed and negative except as detailed in the HPI and below. CONSTITUTIONAL: At last visit a 30 lb weight loss (family attributed this to trazodone) was noted. Weight has increased since last seen and is now back along past percentile trend. Vital Signs Vitals: 08/19/19 1603 BP: 116/68 Pulse: 90 Resp: 20 Weight: 70.5 kg (155 lb 8 oz) Height: 162.8 cm (5' 4.09 ) Physical Exam General Exam: Lexie Nur was a well developed, well nourished female. Skin was clear without lesions or rashes. Head was normocephalic. She wore glasses during the encounter. Oropharynx was nonerythematous with moist mucous membranes. Neck was supple without lymphadenopathy. Breath sounds were clear and equal with good aeration. Cardiac exam revealed regular rate and rhythm without murmur. Abdomen was soft and nondistended without hepatosplenomegaly. Extremities were warm and well perfused. Neurologic Exam: Mental status and language: Lexie Nur was alert and cooperative with fluent speech and slightly immature vocabulary/speech pattern for age. She was able to follow most simple and complex commands without difficulty. Cranial nerves: Fundoscopy revealed optic discs with clear margins and normal blood vessels bilaterally. Visual sofia were full to finger counting. Pupils were equal, round, and reactive to light. Extraocular movements were intact without nystagmus or diplopia. Facial sensation was intact in V1-[id number] bilaterally. Facial strength was full and symmetric. Auditory acuity was intact to finger rub. Palate elevated midline. Tongue protruded midline. There was no dysarthria. Motor: Strength was 5/5 in proximal and distal muscle groups of the upper and lower extremities bilaterally when coached to single greatest effort. There was normal muscle bulk and tone. There were intermittent, high-amplitude jerks of extremities or head throughout the encounter. These were suggestible and appeared to some degree distractible. There were also intermittent bursts of vocal output (typically yelping-type sounds). Both motor and vocal tics were drastically improved in frequency from last clinic visit. Sensation: Light touch sensation was intact in the upper and lower extremities bilaterally. Rombergwas negative. Reflexes: Deep tendon reflexes were 2+ and symmetric at the biceps, triceps, brachioradialis, patellae, and ankles. There was no ankle clonus. Coordination: There was no ataxia or dysmetria on [id number] or [id number] testing. Gait: Gait was narrow based with normal arm swing. Toe and heel walking was normal. There was no difficulty with tandem gait. Impression Diagnosis Plan 1. Difficulty sleeping Ambulatory referral to Neurology 2. Migraine with status migrainosus, not intractable, unspecified migraine type 3. Tic disorder Lexie Nur is a 14 y.o. female with migraines, motor and verbal tics, history of non-specific paroxysmal spells, anxiety, panic attacks, depression, and bipolar disorder who presents for routine follow up. Regarding her motor and verbal tics, these continue to be clinically consistent with tics (with sense of build up when held back and release when performed, worsening with anxiety, suggestible nature). She was older than typical at development of tic disorder, and this may require further workup pending clinical course. She will benefit from continued involvement with CBIT, and may benefit from further pharmacologic management. She has been started on pimozide (Orap) by her primary psychiatrist, and this medication can be helpful for conditions along the Tourette's spectrum. She is on a lower dose of this medication and may benefit from further dose titration. I will plan to reach out to her psychiatrist to discuss this option. Clonidine may additionally be beneficial, however I wouldlike to have Lexie evaluated by Sleep Medicine prior to starting this medication. Her sleep pattern is very poor and is likely contributing to many of her complaints, including her tic disorder and p otentially even management of her psychiatric diagnoses. I believe better control of her sleep habits may have a significant positive impact on her overall clinical presentation. Regarding migraines, we have been limited with selection of prophylactic medications due to concernfor medication interactions and polypharmacy. She was previously started on valproate for combination of migraine prophylaxis and mood stabilization, however this has lost efficacy in regard to headache control in recent years. Given its ongoing use as a mood stabilizer, this medication was continued and cyproheptadine added when I first met Lexie. There has been minimal improvement, though she remains on a small dose which we will increase today. This does have a potential side effect of weight loss, which was discussed. At this time would like to continue with a trial of ibuprofen as abortive regimen, however may require advancement to rizatriptan in the future pending clinical course. Isuspect her poor sleep is also contributing to her headaches, and I would like to have her evaluated by Sleep Medicine prior to making further adjustments to medication regimen. Plan - Encouraged continued participation with CBIT with [facility]. Also encouraged continued regular follow up with primary psychiatrist and therapist/counselor. - Will increase cyproheptadine to 4 mg BID. An updated prescription was sent to family's pharmacy of choice. - I will plan to reach out to Lexie's psychiatrist when able to discuss increasing pimozide dose and to investigate whether there would be concerns with starting clonidine after Sleep Medicine evaluation. - Referral to Sleep Medicine was placed today. Family was asked to call our office if they are not contacted about scheduling in the coming weeks. - I would like to see Lexie back in clinic in four months. Family knows they may call sooner with any questions or concerns, and were asked to provide periodic updates on headache frequency to guideany necessary medication titrations. No future appointments. There are no discontinued medications. Orders Placed This Encounter ??? Ambulatory referral to Neurology Sleep Neurology - Jaleel or Susan please Standing Status: Future Standing Expiration Date: 08/21/2020 Referral Priority: Routine Referral Type: Consultation Referral Reason: Specialty Services Required Referral Location: [facility] (All Locations) Requested Specialty: Neurology Number of Visits Requested: 1 Thank you for allowing us to participate in the care of your patient. If you have any questions, feel free to contact me at [phone]. Sincerely, Marco Myles MD Pediatric Neurology PGY-4 Cosigned by Negrita Pride MD PhD at 08/25/2019 3:36 PM DIRECTOR OF HOME ECONOMICS CTOR OF HOME ECONOMICS CTOR OF HOME ECONOMICS Associated attestation - Negrita Pride MD PhD - 08/25/2019 3:36 PM DIRECTOR OF HOME ECONOMICS I have seen and examined the patient. I agree with the findings and plan of care as documented in the resident/fellow's note. documented in this encounter Plan of Treatment Not on file documented as of this encounter Visit Diagnoses Diagnosis Difficulty sleeping- Primary Unspecified sleep disturbance Migraine with status migrainosus, not intractable, unspecified migraine type Tic disorder Tic disorder, unspecified documented in this encounter Care Teams Senior Product Manager Relationship Specialty Start Date End Date Cortney Pineda NP [address] [place] [address] PCP - General 06/09/19 Bassem Cho MD [address] [facility] [address] [place] [address] 12/20/18 documented as of this encounter
--- OUTSIDE RECORDS SUMMARY | 2024-10-16 03:37 | XMS_ITS | Encounter Summary ---
Author Organization [facility] Address [address] [place] [address] Phone Care Team Providers Care Implementation Specialist Name Role Phone Bassem Cho MD Primary Care Provider Bassem Cho MD Unavailable [phone] Encounter Details Date Type Department Care Team (Late st Contact Info) Description 03/26/2019 Telephone [facility] Scheduling [address] [place] [address] Lexie Perla Social History Tobacco Use Types Packs/Day Years Used Date Smoking Tobacco: Never Smokeless Tobacco: Never Alcohol Use Standard Drinks/Week Comments No 0 (1 standard drink = 0.6 oz pur e alcohol) Comments Unknown Sex and Gender Information Value Date Recorded Sex Assigned at Not on file Legal Sex Female 6:43 AM FISHERIES SPECIALIST Gender Identity . 01/07/2021 9:24 AM CDT Sexual Orientation Not on file documented as of this encounter Miscellaneous Notes * Telephone Encounter - Mariola Blank MD PhD - 03/26/2019 2:58 PM CDT This patient had an appt last Sunday with Negrita Pride and no-showed. If they want to reschedule, they should be given an appt with general neurology; they do not need an EEG. * Telephone Encounter - Lexie Perla B.A. - 03/26/2019 2:38 PM CDT [facility] Screening Form Zak Cho MD 03/26/2019 Caller parent Describe Symptoms: Patient was out with friends and had full body shaking. Later after getting homestarted feeling like she was vomiting but nothing came up Is this the first time this has ever happened ? yes When did symptoms start? Seen in ER for this? no If yes, when/where: Screening Questions: 1. Seen by a neurologist for any reason in the past? (if yes explain) yes Saw Dr. Craft for migraines in 4th grade 2. Is intellectually and developmentally functioning at age level? (if no explain) yes 3. Does patient have any behavioral, learning, or psychiatric issues? (if yes explain) yes Bipolar 4. Any other health issues: yes If yes, please explain: Verbal/physical tic Once screen is complete please send to the epilepsy screening box for physician review. documented in this encounter Plan of Treatment Not on file documented as of this encounter Visit Diagnoses Not on filedocumented in this encounter Care Teams Implementation Specialist Relationship Specialty Start Date End Date Bassem Cho MD [address] [address] [place] [address] PCP - General Pediatrics 12/20/18 06/08/19 Bassem Cho MD [address] [place] [address] 12/20/18 documented as of this encounter
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
--- OUTSIDE RECORDS SUMMARY | 2024-10-16 03:37 | XMS_ITS | Encounter Summary ---
Author Organization [facility] Address [address] [place] [address] Phone Care Team Providers Care Dandy Operator Name Role Phone Bassem Cho MD Unavailable [phone] Cortney Pineda NP Primary Care Provider [phone] Reason for Visit * Reason Comments OT Treatment * Consultation (Routine) - Closed Specialty Diagnoses / Procedures Referred By Contact Referred To Contact Pediatric Occupational Therapy Diagnoses Tic disorder Negrita Pride MD PhD [address] [place] [address] Phone: tel: fax: [facility] (All Locations) Referral ID Status Reason Start Date Expiration Date V isits Requested Visits Authorized [id number] Closed Specialty Services Required 11/29/2020 12/29/2021 24 24 Encounter Details Date Type Department Care Team (Late st Contact Info) Description 04/11/2021 2:00 PM CDT Therapy [facility] Occupational Therapy [address] [place] [phone] Vicky Ramachandran, OT [address] [place] [address] Tic disorder (Primary Dx); Anxiety; Bipolar 1 disorder, Anxiety Social History Tobacco Use Types Packs/Day Years Used Date Smoking Tobacco: Never Smokeless Tobacco: Never Alcohol Use Standard Drinks/Week Comments No 0 (1 standard drink = 0.6 oz pur e alcohol) Comments No Sex and Gender Information Value Date Recorded Sex Assigned at Not on file Legal Sex Female 6:43 AM BASEBALL PLAYER Gender Identity . 01/07/2021 9:24 AM CDT Sexual Orientation Not on file documented as of this encounter Progress Notes * Raul Forbes - 04/11/2021 2:00 PM CDT OT Daily Treatment Note Lexie Oconnell 2005 Subjective: Ct stated ze is not sleeping well even though ze is sleeping. Pain: 6/10 (facial scale) Objective: Client was [...] wrists, extended fingers. Push glenohumeral joint down. Tic Management Ct presented with high frequency of vocal tics and physical tics (biting, grabbing items, pushing, kicking, hitting self and others). Frequency was within 40-50 vocal and physical tics/[address] and mother stated that In [facility] bedroom: ct stated tics decrease in intensity when alone. Oral tube is helping decrease tics when zer uses it. Ct stated that the tube is too narrow. Mother stated the plan is to buy a chew necklace. Helmet: Mother stated she ordered one. Mod verbal ed on tic suppression, dis-inhibitation, and tic suggestibility. OTR defined each, explained overlapping symptoms, and how each effect tic management. Ct and mother stated fair verbal understanding of ed. Eating: Ct stated ze is eating 3 meals a day. Mother stated ct is eating 50% of zer meal, 25% of the time. In session, OTR graded tasks via change of environment from private tx room with a table to gym area with swing. Tic frequency decreased from 40-50 vocal and physical tics to >5 vocal and physicaltics/30 min once on swing and mother and OTS student left room. Ct in session stated many concerns centered around not feeling supported by family including familynot understanding zer medical conditions and family not understanding strategies to help zer managezer tics. Mod verbal ed on OTR's perception of families support and families distresses. Ct despiteed did not agree with OTR. OTR ed ct and mother on need to re-start seeing a psychologist to work through anxious thoughts. Ct and mother agreed to set appt up. Sleep: Ct stated ze is not feeling rested after sleep. Ze stated ze is sleeping during day and at night. Ct stated ze is having nightmares. Mod verbal prompts to id what nightmares were about. Nightmares center around ct's distresses. Skilled ed on sleep management strategies including Netflix Headspace: Sleep series. Ct and mother stated good verbal understanding of ed. HEP: Implement use of tic management strategies including: distractibility tasks (id coloring), proprioceptive tasks (id weighted blanket, pool, tub bathes), vestibular (id swinging, rocking chair), auditory (id music), and oral (id chew tube). Set up travel bag with tic management strategies Decrease demands of day Eat 3 meals or multiple snack (5 or more times a day) with variety of types of food to hit all nutrition areas Assess need to purchase a Helmet Wear sweatshirts to cover arms.. Tic Symptom [...] Date 01/12 01/20 01/26 02/04 02/15 02/23 04/11 1. Punching 7 Hourly 2 Weekly (1- [...] 9 Weekly (3x) Tic Distress Monitoring Form (04/11/2021 - not [...] Assessment: Session this week focused ed on sleep management strategies and tic management strategies. Ct presented to session with high frequency of tics (40- 50 vocal and physical tics/1 min). OTR assess via guided discussion that increase in tics may be 2/2 increased time spent within family environment and decrease time within peer environments. CT expressed feeling not supported in home. OTR encouraged ct and family to restart psychology support as ct would benefit from intervention at thistime. Modification of environment and people in session decreased tics to >5 vocal and physical tics/30 min; supporting OTR's assessment that ct is triggered by family and that support self regulation strategies will assist ct in managing zer tics. Ed was provided on sleep, as ct is not sleepingwell. Strategies were id to trial to assist with developing a more supportive sleep routine. Ct will benefit from continued OT services [...] weeks Skilled ed on stress management on 1/ wks Skilled ed on tic management strategies on 2/2 wks Progressing (04/11/2021) 4. Client will implement 1-2 adaptive strategies to facilitate management of triggers resulting in increasing management of tic disorder on ?? weeks in 8 weeks. Skilled ed on sensory/emotional/environmental triggers of tics on 4/4 wks. Progressing (04/11/2021) 5. Client will catch tic at 70% accuracy on 5/7 days per parent report to increase awareness of premonitory urge to facilitate tic management in 4 weeks. Met on 2/2 sessions within session. Progressing (02/23/2021) 6. Client will eat 3 meals a day on 3/4 weeks within 2 months. 50 % of zer meals, 3 meals a day on 1 wks Progressing (04/11/2021) Supervisor Yard Goals: 1. Client and caregiver will create [...] and parents within 2 months. Met on 4/5 wks. Progressing (04/11/2021) 4. Client will be able to self -advocate for zerself through short speech stating a definition of zer tic disorder and what others can do to help manage zer tics in [address] was ed on tic diagnosis and tic management strategies on 4/4 wks. Progressing (04/11/2021) 5. Ct will manage FND symptoms 80% of the time for 3/4 weeks using adaptive strategies within 4 months. New (12/23/2020) Frequency of OT visits: 1x/wk Duration in weeks: 3-4 months Plan discussed with: Patient and Family Start time: 1412 End time: 1506 documented in this encounter Plan of Treatment Not on file documented as of this encounter Visit Diagnoses Diagnosis Tic disorder- Primary Tic disorder, unspecified Anxiety Anxiety state, unspecified Bipolar 1 disorder, Anxiety documented in this encounter Care Teams Dandy Operator Relationship Specialty Start Date End Date Cortney Pineda NP [address] [place] [address] PCP - General 06/09/19 Bassem Cho MD [address] [place] [address] 12/20/18 documented as of this encounter
--- OUTSIDE RECORDS SUMMARY | 2024-10-16 03:37 | XMS_ITS | Encounter Summary ---
Author Organization [facility] Address [address] [place] [address] Care Team Providers Care Local Company Flatbed Truck Driver Name Role Phone Bassem Cho MD Primary Care Provider Bassem Cho MD Unavailable [phone] Encounter Details Date Type Department Care Team (Late st Contact Info) Description 02/16/2019 10:32 PM CDT - 02/17/2019 12:38 AM CDT Hospital Encounter [address] [address] Unknown, Jennifer Alexis MD [address] [place] [address] [address] [place] [address] Discharge Disposition: Discharge to home or self care Social History Tobacco Use Types Packs/Day Years Used Date Smoking Tobacco: Never Smokeless Tobacco: Never Alcohol Use Standard Drinks/Week Comments No 0 (1 standard drink = 0.6 oz pur e alcohol) Comments Unknown Sex and Gender Information Value Date Recorded Sex Assigned at Not on file Legal Sex Female 6:43 AM HOME MISSION WORKER Gender Identity . 01/07/2021 9:24 AM CDT Sexual Orientation Not on file documented as of this encounter Last Filed Vital Signs Vital Sign Reading Time Taken Comments Blood Pressure 115/74 02/16/2019 11:07 PM CDT Pulse 86 02/16/2019 11:07 PM CDT Temperature 37.1 ??C (98.8 ??F) 02/16/2019 11:07 PM C DT Respiratory Rate - - Oxygen Saturation 97% 02/16/2019 11:07 PM CDT Inhaled Oxygen Concentration - - Weight 66 kg (145 lb 8.1 oz) 02/16/2019 11:07 PM CDT Height 162.6 cm (5' 4 ) 02/16/2019 11:07 PM CDT Body Mass Index 24.98 02/16/2019 11:07 PM CDT Body Mass Index Percentile 89.70% 02/16/2019 11: 07 PM CDT Growth Chart: [facility] (Girls, 2- 20 Years) documented in [...] nausea or vomiting. 10 tablet 9 05/07/20 SYMBICORT 160-4.5 mcg/actuation inhaler INL 2 PFS PO BID 1 8 07/05/20 traZODone (DESYREL) 100 mg tablet Take 100 mg by mouth nightly. at bedtime. 1 9 05/07/20 documented as of this encounter Discharge Disposition Disposition Code Departure Means Destination Discharge to home or self care documented in this encounter Plan of Treatment Not on file documented as of this encounter Procedures Procedure Name Priority Date/Time Associated Diagnosis Comments ECG 12-LEAD 02/16/2019 11:21 PM CDT documented in this encounter Results * ECG 12 lead (02/16/2019 11:21 PM CDT) Ventricular Rate EKG/Min 79 BPM ER RADIOLOGY Atrial Rate 79 BPM ER RADIOLOGY AR-Interval (MSEC) 146 ms ER RADIOLOGY QRS-Interval (MSEC) 88 ms ER RADIOLOGY QT-Interval (MSEC) 360 ms ER RADIOLOGY QTc 412 ms ER RADIOLOGY P [place] 54 degrees ER RADIOLOGY R [place] 80 degrees ER RADIOLOGY T [place] 43 degrees ER RADIOLOGY Diagnosis * Pediatric ECG Analysis * Normal sinus rhythm with sinus arrhythmia Normal ECG When compared with ECG of 2004 23:41, Right ventricular hypertrophy is no longer present ER RADIOLOGY 02/16/2019 11:2 1 PM CDT 02/17/2019 8:05 AM CDT Narrative Resulting Agency Comment [facility] us Jennifer Koo MD ECG ORDERABLES Final Resu lt ER RADIOLOGY documented in this encounter Visit Diagnoses Not on filedocumented in this encounter Care Teams Local Company Flatbed Truck Driver Relationship Specialty Start Date End Date Bassem Cho MD [address] [facility] [address] [address] [place] [id number] PCP - General Pediatrics 12/20/18 06/08/19 Bassem Cho MD [address] [place] [address] 12/20/18 documented as of this encounter
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
--- OUTSIDE RECORDS SUMMARY | 2024-10-16 03:37 | XMS_ITS | Encounter Summary ---
Author Organization [facility] Address [address] [place] [address] Care Team Providers Care Heel Seat Fitter Machine Name Role Phone Bassem Cho MD Primary Care Provider Bassem Cho MD Unavailable [phone] Encounter Details Date Type Department Care Team (Late st Contact Info) Description 03/26/2019 2:24 AM CDT - 03/26/2019 3:41 AM CDT Hospital Encounter [address] [address] Unknown, [facility]all[facility] [address] [place] [address] Discharge Disposition: Discharge to home or self care Social History Tobacco Use Types Packs/Day Years Used Date Smoking Tobacco: Never Smokeless Tobacco: Never Alcohol Use Standard Drinks/Week Comments No 0 (1 standard drink = 0.6 oz pur e alcohol) Comments Unknown Sex and Gender Information Value Date Recorded Sex Assigned at Not on file Legal Sex Female 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 01/07/2021 9:24 AM CDT Sexual Orientation Not on file documented as of this encounter Last Filed Vital Signs Vital Sign Reading Time Taken Comments Blood Pressure 116/71 03/26/2019 2:36 AM CDT Pulse 95 03/26/2019 2:36 AM CDT Temperature 36.3 ??C (97.3 ??F) 03/26/2019 2:36 AM CD T Respiratory Rate - - Oxygen Saturation 97% 03/26/2019 2:36 AM CDT Inhaled Oxygen Concentration - - Weight 63.1 kg (139 lb 1.8 oz) 03/26/2019 2:36 A M CDT Height 162.6 cm (5' 4 ) 03/26/2019 2:36 AM CDT Body Mass Index 23.88 03/26/2019 2:36 AM CDT Body Mass Index Percentile 85.50% 03/26/2019 2:3 6 AM CDT Growth Chart: [facility] (Girls, 2- 20 Years) documented [...] on filedocumented in this encounter Care Teams Heel Seat Fitter Machine Relationship Specialty Start Date End Date Bassem Cho MD [address] [place] [address] PCP - General Pediatrics 12/20/18 06/08/19 Bassem Cho MD [address] [place] [address] 12/20/18 documented as of this encounter
--- OUTSIDE RECORDS SUMMARY | 2024-10-16 03:37 | XMS_ITS | Encounter Summary ---
Author Organization [facility] Address [address] [place] [address] Phone Care Team Providers Care Bevel Operator Name Role Phone Bassem Cho MD Unavailable [phone] Cortney Pineda NP Primary Care Provider [phone] Reason for Visit * Reason Comments OT Treatment * Consultation (Routine) - Closed Specialty Diagnoses / Procedures Referred By Contact Referred To Contact Pediatric Occupational Therapy Diagnoses Tic disorder Negrita Pride MD PhD [id number] [place] [address] Phone: tel: fax: [facility] (All Locations) Referral ID Status Reason Start Date Expiration Date V isits Requested Visits Authorized [id number] Closed Specialty Services Required 11/29/2020 12/29/2021 24 24 Encounter Details Date Type Department Care Team (Late st Contact Info) Description 02/15/2021 3:00 PM CDT Therapy [facility] Occupational Therapy [address] [place] [id number] Vicky Ramachandran, OT [address] [place] [address] Tic disorder (Primary Dx) Social History Tobacco Use Types Packs/Day Years Used Date Smoking Tobacco: Never Smokeless Tobacco: Never Alcohol Use Standard Drinks/Week Comments No 0 (1 standard drink = 0.6 oz pur e alcohol) Comments No Sex and Gender Information Value Date Recorded Sex Assigned at Not on file 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 01/07/2021 9:24 AM CDT Sexual Orientation Not on file documented as of this encounter Progress Notes * Bobo Tanya, AMOL - 02/15/2021 3:00 PM CDT OT Daily Treatment Note Lexie Oconnell 2005 Subjective: Ct entered session visibly upset. Reported being upset from issues relating to gender identify, gender expression, and parental understanding of gender identity. Pain: 0/10 (facial scale) Objective: Client was seen in clinic setting with her mother, for the last 10 minutes of session. No change in medical status stated. OTS present and help in session. Pronoun: Ct prefers they/them, ze/zem, and it/its pronouns, when parents are not around. Prefers name Gina when parents are not around. - [...] posterior scapula. HEP Awareness Update: Ct reported being unable to perform HEP of completing Catch My Tic 2/2 family vacation. Session Awareness Training: OTS attempted to initiate awareness training during session. Ct reported that she wanted to work on the tic still, but that she was too upset to focus on the urge at this time. Ct agreed to plan of practicing Catch My Tic at home, and continuing awareness training for CBIT program next week. HEP: Practice catch my tic activity with a caregiver to id premonitory urge for punching tic for 3-5 min for 3-4 times a day. Tic Management Ct entered session very upset, reporting having stress related to her parents' acceptance of her identity and stress about her grades. Ct reported that her tics have been much worse 2/2 to this stress. OTS initiated training with ct on diaphragmatic breathing to self regulate when anxious. Ct initially needed max verbal cues to slow breathing, but progressed to needing only min verbal cues to slow/maintain breathing pattern. OTS taught ct additional strategy of using tactile/proprioceptive input to self- regulate. Ct independently utilized strategy with putty, and verbalized plan to purchase her own putty to use when stressed. Ct reported additional stress 2/2 her workload of schoolwork for the night. Ct reported having manyassignments to complete that night, and not being sure how to organize her plan to complete them. Ct needed mod verbal and visual cues to initiate process of prioritizing tasks and mod verbal prompting to recall items to put on plan. Ct reported that she was less overwhelmed, now that she had a structured list. Max verbal skilled ed on task prioritization, preplanning, and organization strategiesto manage task based stress. Tic Symptom Hierarchy Tracker Tics are rated by client to determine which tics are interfering the most in daily activities. SUDSrating is a scale of 0-10 (0 not bothering me and 10 significantly bothersome) with client and caregiver rating tics for past week. Tic Symptoms SUDS Rating Session # 1 2 3 4 5 6 7 8 Date 01/12 01/20 01/26 02/04 02/15 1. Punching 7 Hourly 2 Weekly (1- 2x) 6 Daily (3-4x) 6 Daily (2-5x) 7 Weekly (3x) 2. Bees 5 Constant 6 Hourly 8 Weekly (3x) 1 Weekly 2 Daily (1-2x) 3. Mooney Bees 5 Constant 7 Hourly 8 Daily 1 Weekly 0 Weaned 4. Copropraxia 3 Constant 5 Daily 7 Daily 4 Hourly 6 Hourly 5. Coprolalia 4 Constant 7 Hourly 8 Constant 7 Constant 7 Constant 6. Lateral neck flexion 6 Daily 6 Daily (7-8x) 6 Constant 8 Constant (reports pain from tic) 5 Weekly 7. Neck hyperextension 6 Daily 4 Weekly (3x) Weaned this week 8 Hourly 4 Daily 8. Neck protraction 6 Daily 2 Weekly Weaned this week 9 Constant 4 Daily 9. Neck rotation 7 Daily 4 Weekly (3x) 8 Constant (pain and spasms with tic) 10 Constant 0 Weaned 10. I have drugs 10 Around law enforcement, weekly 0 No opportunity this week 10 Weekly 0 weaning 10 Weekly (3-4x) (on vacation) 12. Karate kick 4 weekly 0 Weaned 6 Weekly (2-3) 0 weaning 0 Weaned 12. Fag 5 Daily, in response to sibling 5 Weekly (3x) 7 Weekly (3-4x) 1 Weekly 8 Hourly 13. Bees in my edy 8, Daily 0 Weaned 0 Weaned 0 Weaned 0 Weaned 14 I'm finch, no gender here Changed: gender-related tic 10, weekly (2-3 times a week) 10 Weekly 7 Weekly (3-4x) 0 Weaned 10 Daily Education provided this session: Client and Mother were educated on: - OT POC for today and next session. Client/family verbalized Fair understanding and shows need for further education/reinforcement. Assessment: Session this week focused ed on CBIT awareness training, tic management, and trigger/stress management. Ct was visibly upset when they entered session, and reported being upset about how their parents feel about their gender identity. Ct also reported being upset by school pressure and s tress regarding school assignments. OTS spent 10 minutes actively listening to ct's concerns and assessing to make sure they felt safe at home. Ct reported feeling safe physically and mentally at home, but that they felt like they were unable to be themself when around their parents. Ct reported she was feeling too upset to continue CBIT awareness training during session, and OTS initiated trigger management interventions. Ct responded well to intervention, and demonstrated understanding of diaphragmatic breathing and controlled proprioceptive input to self-regulate. Ct additionally worked with OTS to create an action plan to manage her school assignments tonight. During session ct benefited from assistance prioritizing assignments and cueing to recall what she had to do that night. OTSplans to assess ct's stress level next session, and continue CBIT awareness training if appropriate. Ct will benefit from continued OT services [...] (12/23/2020) 3. Client will increase awareness of their tic disorder and what facilitates and hinders tic management in 4 weeks. Fair verbal awareness on 01/02 weeks Skilled ed on stress management on 1 weeks Progressing (02/15/2021) 4. Client will implement 1-2 adaptive strategies to facilitate management of triggers resulting in increasing management of tic disorder on ?? weeks in [address] created plan to manage sensory trigger on 10/[address] created plan to manage stress trigger on 10/01 sessions. Progressing (02/15/2021) 5. Client will catch tic at 70% accuracy on 5/7 days per parent report to increase awareness of premonitory urge to facilitate tic management in 4 weeks. Met on 10/01 sessions within session. Progressing (01/26/2021) 6. Client will eat 3 meals a day on 3/4 weeks within 2 months. New (12/23/2020) Trouble Lineman Goals: 1. Client and caregiver will create [...] 6 weeks. See STG for progress Progressing (02/15/2021) 5. Ct will manage FND symptoms 80% of the time for 3/4 weeks using adaptive strategies within 4 months. New (12/23/2020) Frequency of OT visits: 1x/wk Duration in weeks: 3-4 months Plan discussed with: Patient and Family Start time: 1500 End time: 1610 documented in this encounter Plan of Treatment Not on file documented as of this encounter Visit Diagnoses Diagnosis Tic disorder- Primary Tic disorder, unspecified documented in this encounter Care Teams Bevel Operator Relationship Specialty Start Date End Date Cortney Pineda, UNDERGROUND MINER [address] [place] [address] PCP - General 06/09/19 Bassme Cho MD [address] [place] [address] 12/20/18 documented as of this encounter
--- OUTSIDE RECORDS SUMMARY | 2024-10-16 03:37 | XMS_ITS | Encounter Summary ---
Author Organization [facility] Address [address] [place] [address] Phone Care Team Providers Care Mechanical Maintenance Worker Name Role Phone Bassem Cho MD Unavailable [phone] Cortney Pineda NP Primary Care Provider [phone] Vicky Ramachandran OT Unavailable [phone] Reason for Visit * Reason Comments OT Treatment * Consultation (Routine) - Closed Specialty Diagnoses / Procedures Referred By Contact Referred To Contact Pediatric Occupational Therapy Diagnoses Tic disorder Negrita Pride MD PhD [id number] [place] [address] Phone: tel: fax: [facility] (All Locations) Referral ID Status Reason Start Date Expiration Date V isits Requested Visits Authorized [id number] Closed Specialty Services Required 11/29/2020 12/29/2021 24 24 Encounter Details Date Type Department Care Team (Late st Contact Info) Description 04/18/2021 2:00 PM CDT Therapy [facility] Occupational Therapy [address] [place] [address] Vicky Ramachandran, OT [address] [place] [address] Tic disorder (Primary Dx); Anxiety; Bipolar 1 disorder, Anxiety Social History Tobacco Use Types Packs/Day Years Used Date Smoking Tobacco: Never Smokeless Tobacco: Never Alcohol Use Standard Drinks/Week Comments No 0 (1 standard drink = 0.6 oz pur e alcohol) Comments No Sex and Gender Information Value Date Recorded Sex Assigned at Not on file 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 01/07/2021 9:24 AM CDT Sexual Orientation Not on file documented as of this encounter Progress Notes * Vicky Ramachandran, OT - 04/18/2021 2:00 PM CDT OT Daily Treatment Note Lexieousmane Jayanitra Oconnell 2005 Subjective: Ct stated manic zer manic behaviors are increase movement of body, increase verbalizations, increased cursing, task management goes back and forth from laser focus to do tasks to jumpingbetween tasks . CT id ze was not able to hang out friends as friends not available. Pain:4/10 (lower back) and 3/10 (stomach hunger pain) Objective: Client was seen in clinic setting [...] a short while. Zestated ze it using zer CR as she can not catch zer tic. - CBIT Awareness Bees tic Physical Actions for Bee's tic: Verbalizes bee's . Premonitory Urge for bee's tic: Ct indicated she has an urge but verbalize feeling HEP Awareness Update: No awareness HEP last session. Session Awareness Training: Min verbal prompts to id to work on this tic. HEP: Practice catch my tic activity with a caregiver to id premonitory urge for bee's tic for 3-5 min for 3-4 times a day. - CBIT CR Relief Scale (0/10 not helping manage tics and 10/10 consistently manage tics) - Punching tic CR: Not using CR at this time. Tic Management ?? Ct presented with low frequency of vocal tics and physical tics (grabbing of items, hitting selfand others). Frequency was within <10 vocal and physical tics/ hr. Ct's mother, per ct, id tics have decreased since last med change. Ct stated unsure. ?? Helmet: Ct brought to session. Fits head well to protect forehead, ears, and back of head. Protected ct when ze hit forehead, 2x in session. Ze id ze is wearing it inconsistently as needed. Id as very helpful. ?? Eating: Ct stated ze is eating 2.5 meals a day and 2 snacks as day for the last 3-4 days. ?? Min verbal ed on tic assistant athletic trainer program and how it differs from CBIT program. Ct and OTR agreed to trial use of CBIT for 1 more tic to assess if protocol is working. Plan if it does not work is to try tic assistant athletic trainer program. HEP: ?? Implement use of tic management [...] 01/12 01/20 01/26 02/04 02/15 02/23 04/18 1. Punching 7 Hourly 2 Weekly (1- 2x) 6 Daily (3-4x) 6 Daily (2-5x) 7 Weekly (3x) 7 Daily 4 Daily (1-3 x/day) 2. Bees 5 Constant 6 Hourly 8 Weekly (3x) 1 Weekly 2 Daily (1-2x) 0 Weaned 5 Daily (5-7x/day) 3. Mooney Bees 5 Constant 7 Hourly 8 Daily 1 Weekly 0 Weaned 0 Weaned 0 weaned 4. Copropraxia 3 Constant 5 Daily 7 Daily 4 Hourly 6 Hourly 4 Daily (3-4x) 6 Weekly (1-3x/wk) 5. Coprolalia 4 Constant 7 Hourly 8 Constant 7 Constant 7 Constant 4 Hourly 6 Daily (5-7x/day) 6. Lateral neck flexion 6 Daily 6 Daily (7-8x) 6 Constant 8 Constant (reports pain from tic) 5 Weekly 8 Hourly 3 Weekly (1-3x/wk) 7. Neck hyperextension 6 Daily 4 Weekly (3x) Weaned this week 8 Hourly 4 Daily 4 Daily (5x) 4 Weekly (1-3x/wk) 8. Neck protraction 6 Daily 2 Weekly Weaned this week 9 Constant 4 Daily 6 Hourly 1 Weaned 9. Neck rotation 7 Daily 4 Weekly (3x) 8 Constant (pain and spasms with tic) 10 Constant 0 Weaned 9 Daily 4 Weekly (1-3x/wk) 10. I have drugs 10 Around law enforcement, weekly 0 No opportunity this week 10 Weekly 0 weaning 10 Weekly (3-4x) (on vacation) 0 Weaned 0 Weaned 12. Karate kick 4 weekly 0 Weaned 6 Weekly (2-3) 0 weaning 0 Weaned 7 Daily 1 Weaned 12. Fag 5 Daily, in response to sibling 5 Weekly (3x) 7 Weekly (3-4x) 1 Weekly 8 Hourly 8 Hourly 5 Daily (3-5x/wk) 13. Bees in my edy 8, Daily 0 Weaned 0 Weaned 0 Weaned 0 Weaned 0 Weaned 0 Weaned 14 I'm finch, no gender here Changed: gender-related tic 10, weekly (2-3 times a week) 10 Weekly 7 Weekly (3-4x) 0 Weaned 10 Daily 9 Weekly (3x) 0 Weaned Tic Distress Monitoring Form (04/11/2021 - not completed as ct struggled to focus and attend to answer questions. Mention of tics also increased tic actions) Tic name/ description How bothersome is it (distress scale) Session # 1 2 3 4 5 6 7 8 Date 02/23 04/18 Punching Tic: anxiety about punching sister/mother 7 7 Education provided this session: Client and Father were educated on: - OT POC for today and next session. - W/C to be only used when in community with caregiver not able to physical lift from ground to assure. FND weakness episode does not place ct in danger. - Ct ed to advocate to parents to talk to counselor alone to discuss anxious thoughts Client/family verbalized Fair understanding and shows need for further education/reinforcement. Assessment: Session this week focused ed on CBIT strategies. Ct's tic frequency has decreased sincelast session (40-50 vocal and physical tics/1 min) to <10 tics in 1 hr. OTR is happy to see decline as daily tasks like eating and sleep were being effected including safety of others and self. Eating has progressed to 2.5 meals with 2 snacks an improvement from eating 50% of meals, 25% of the time. Sleep was not assessed. CBIT was restarted, ct continues to struggles to id urge sensation withzer punching tic. Ct is catching tic during the actions of the tic throughout session's urge awareness practice. Ct id ze would like to shift tics to her bee's tic. OTR id that if in next 1-[address] is unable to catch urge prior to tic actions a shift in POC may be needed. That is reason OTR introduced new tx idea, tic assistant athletic trainer, this session. Ct will benefit from continued [...] Skilled ed on stress management on 10/01 wks Skilled ed on tic management strategies on 2/2 wks Progressing (04/18/2021) 4. Client will implement 1-2 adaptive strategies [...] 2/3 sessions within session for punching tic. Progressing (04/18/2021) 6. Client will eat 3 meals a day on 3/4 weeks within 2 months. 100 % of zer meals, 2.5 meals a day on 10/01 wks Progressing (04/18/2021) Cigar Making Machine Operator Goals: 1. Client and caregiver will create [...] and parents within 2 months. Met on 5/6 wks. Progressing (04/18/2021) 4. Client will be able to self -advocate for zerself through short speech stating a definition of zer tic disorder and what others can do to help manage zer tics in [address]. [address] was ed on tic diagnosis and tic management strategies on 5/5 wks. Progressing (04/18/2021) 5. Ct will manage FND symptoms 80% [...] Anxiety documented in this encounter Care Teams Mechanical Maintenance Worker Relationship Specialty Start Date End Date Cortney Pineda ROAD TRAFFIC CONTROLLER [address] [address] PCP - General 06/09/19 Bassem Cho MD [address] [place] [id number] 12/20/18 Vicky Ramachandran OT [address] [place] [address] Occupational Therapist Occupational Therapy 04/19/21 documented as of this encounter
--- OUTSIDE RECORDS SUMMARY | 2024-10-16 03:37 | XMS_ITS | Encounter Summary ---
Author Organization [facility] Address [address] [place] [address] Phone Care Team Providers Care Data Warehousing Manager Name Role Phone Bassem Cho MD Unavailable [phone] Cortney Pineda NP Primary Care Provider [phone] Reason for Visit * Reason Comments OT Treatment * Consultation (Routine) - Closed Specialty Diagnoses / Procedures Referred By Contact Referred To Contact Pediatric Occupational Therapy Diagnoses Tic disorder Negrita Pride MD PhD [id number] [place] [address] Phone: tel: fax: [facility] (All Locations) Referral ID Status Reason Start Date Expiration Date V isits Requested Visits Authorized [id number] Closed Specialty Services Required 11/29/2020 12/29/2021 24 24 Encounter Details Date Type Department Care Team (Late st Contact Info) Description 01/26/2021 2:00 PM CDT Therapy [facility] Occupational Therapy [address] [place] [id number] Vicky Ramachandran, OT [address] [place] [address] Tic disorder (Primary Dx) Social History Tobacco Use Types Packs/Day Years Used Date Smoking Tobacco: Never Smokeless Tobacco: Never Alcohol Use Standard Drinks/Week Comments No 0 (1 standard drink = 0.6 oz pur e alcohol) Comments No Sex and Gender Information Value Date Recorded Sex Assigned at Not on file Legal Sex Female 6:43 AM STAFF DEVELOPMENT COORDINATOR RN Gender Identity . 01/07/2021 9:24 AM CDT Sexual Orientation Not on file documented as of this encounter Progress Notes * Vicky Ramachandran, OT - 01/26/2021 2:00 PM CDT OT Daily Treatment Note Lexie Oconnell 2005 Subjective: Ct reported punching tics to happen when there is a lot of noise and visual stim. She stated her father often triggers her when he asks her to leave room or move away. Ct appear content, at end of session, that she was able catch her tics as she stated It's nice that I could control my tic to avoid hitting my sister . Ct stated she plans to try and warn others of her injurious tics to allow others time to move and not get hurt. Pain: 0/10 (facial scale) Objective: Client was seen in clinic setting with her mother, for the last 10 minutes of session. No change in medical status stated. OTS present and help in session. Ct prefers they and them in session but continues be out to her parents and prefers she/her during times she is with them. Noteswill continues she/her unless ct states she prefers to change pronouns in note. - Punching tic CBIT Awareness Physical Actions for punching tic: R finger flex, with sh ER to neutral to elb ext to punch back ofanother person head, neck, back, UE's or stomach. Premonitory Urge for punching tic: tightening on inside of forearm or upper bicep/tricep and pressure in chest HEP Awareness Update: Ct was unable to video punching tic. Session Awareness Training: Skilled education on how to participate in the Catch My Tic activity.Ct practiced Catch My Tic activity with OT role playing a tic to learn the rating scale, how a support person should document if ct caught his tic before it occurred, while it occurred, or after itoccurred, and what action ct will utilize to id that he is attempting to catch her punching tic. Ct, sister, and mother benefited from min verbal ed demo understanding of rating scale. Mother stated fair understanding and ct stated good verbal understanding of rating scale. Ct practiced in session with OTR for two 5 min sessions during Mansoor card game. First trial, ct caught tic prior to action 4/6tics, during actions 1/6 tics, and missed tic 1/6 tics. Second trial, ct caught tic prior to action3/4 tics, during actions 0 tics, and missed tic 1/4 tics. Mother and sister was asked to trail tracking ct's success in Catch My Tic activity. Ct caught tic prior to action 3/4 tics, during actions1/4 tics, and missed tic 0 tics. HEP: Practice catch my tic activity with a caregiver to id premonitory urge for punching tic for 3-5 min for 3-4 times a day. - Mooney Bees CBIT Awareness Physical Actions for mooney bees tic: lips purse state mooney bees . HEP Awareness Update: Video taped [address] having tic. Session Awareness Training: Mod verbal and visual ed on actions of tic. HEP: Video tape mooney bee tic to id actions. - Head Hitting CBIT Awareness Physical Actions for Head Hitting tic: ext finger with R or B Sh ER to hit head. Session Awareness Training: Mod verbal and visual ed on actions of tic. HEP: Video tape Head Hitting tic to id actions. Child Functional Assessment Form Tic name: Punching Tic Antecedents - Times or places where tic happens Consequence - Brings attention to tic, reinforcing tic behavior Antecedents Comments In the classroom No No as a distraction uses music to manage tics At home after school Yes When family in room, dad will verbal prompt move away or stop in aggravated tone. When mom and sisters are talking loud. Public places other than school Yes While watching TV / playing video games Yes Playing a cards with high noises and visual stim. TV - sometimes when non focus and interested. While playing sports No During meals Yes Whole family is eating. At bedtime No While doing homework Yes Not focused While in car (driving or riding) Yes When loud (music) and people talking During times of anxiety (like when you think people are talking about you) No Other (prom, standardized testing, dating, etc. No Consequences Home: Parents tell you to stop, Peer or sibling tells you to stop and Someone comforts you School: No consequences Community: Brings on negative attention Tic Symptom Hierarchy Tracker Tics are rated by client to determine which tics are interfering the most in daily activities. SUDSrating is a scale of 0-10 (0 not bothering me and 10 significantly bothersome) with client and caregiver rating tics for past week. Tic Symptoms SUDS Rating Session # 1 2 3 4 5 6 7 8 Date 01/12 01/20 01/26 1. Punching 7 Hourly 2 Weekly (1- 2x) 6 Daily (3-4x) 2. Bees 5 Constant 6 Hourly 8 Weekly (3x) 3. Mooney Bees 5 Constant 7 Hourly 8 Daily 4. Copropraxia 3 Constant 5 Daily 7 Daily 5. Coprolalia 4 Constant 7 Hourly 8 Constant 6. Lateral neck flexion 6 Daily 6 Daily (7-8x) 6 Constant 7. Neck hyperextension 6 Daily 4 Weekly (3x) Weaned this week 8. Neck protraction 6 Daily 2 Weekly Weaned this week 9. Neck rotation 7 Daily 4 Weekly (3x) 8 Constant (pain and spasms with tic) 10. I have drugs 10 Around law enforcement, weekly 0 No opportunity this week 10 Weekly 12. Karate kick 4 weekly 0 Weaned 6 Weekly (2-3) 12. Fag 5 Daily, in response to sibling 5 Weekly (3x) 7 Weekly (3-4x) 13. Bees in my edy 8, Daily 0 Weaned 0 Weaned 14 I'm finch, no gender here 10, weekly (2-3 times a week) 10 Weekly 7 Weekly (3-4x) Education provided this session: Client and Mother were educated on: - OT POC for today and next session. Client/family verbalized Fair understanding and shows need for further education/reinforcement. Assessment: Session this week focused ed on CBIT awareness training. Ct did well in session with catching her punching tics prior to tic actions with a 72% accuracy over 3 practice sessions. Her awareness of her premonitory urge for tic also increased with ct id a new urge sensation. HEP was issuedto work on catching tic using premonitory urge to increased ct's ability to id urge sensation and know when tic is about to occur. OTR assesses if ct continues to have good success with catching her tics she will be able to move onto creating a competing response for her punching tic, next session.OTR did not check in on sensory trigger management and plans to continue to address executive functi oning and sensory management as it relates to participation in the CBIT program. Ct will benefit from continued OT services [...] in 4 weeks. Fair verbal awareness on 2/2 weeks Progressing (01/26/2021) 4. Client will implement 1-2 adaptive strategies [...] discussed with: Patient and Family Start time: 1408 End time: 1500 documented in this encounter Plan of Treatment Not on file documented as of this encounter Visit Diagnoses Diagnosis Tic disorder- Primary Tic disorder, unspecified documented in this encounter Care Teams Data Warehousing Manager Relationship Specialty Start Date End Date Cortney Pineda CONSERVATION EDUCATOR [address] [facility] [place] [address] PCP - General 06/09/19 Bassem Cho MD [address] [facility] [address] [place] [address] 12/20/18 documented as of this encounter
--- OUTSIDE RECORDS SUMMARY | 2024-10-16 03:37 | XMS_ITS | Encounter Summary ---
Author Organization [facility] Address [address] [place] [address] Phone Care Team Providers Care Chemical Dependency Counselor Name Role Phone Bassem Cho MD Unavailable [phone] Cortney Pineda NP Primary Care Provider [phone] Encounter Details Date Type Department Care Team (Late st Contact Info) Description 06/10/2019 Telephone [facility] Pediatric Neurology [facility] 2nd [place] [address] [place] [address] Vicky Finnegan RN Social History Tobacco Use Types Packs/Day Years Used Date Smoking Tobacco: Never Smokeless Tobacco: Never Alcohol Use Standard Drinks/Week Comments No 0 (1 standard drink = 0.6 oz pur e alcohol) Comments Unknown Sex and Gender Information Value Date Recorded Sex Assigned at Not on file Legal Sex Female 6:43 AM BACK END ENGINEER Gender Identity . 01/07/2021 9:24 AM CDT Sexual Orientation Not on file documented as of this encounter Miscellaneous Notes * Telephone Encounter - Vicky Finnegan RN - 06/10/2019 8:57 AM CDT I called Mariola/Mom to let her know that Lexie's EEG & MRI results both came back normal. Mariola was happy to hear this & thankful for the phone call. Vicky Maldonado * Telephone Encounter - Vicky Finnegan RN - 06/10/2019 7:55 AM CDT ----- Message from Marco Myles MD sent at 06/09/2019 9:28 PM CDT ----- [facility] Nurses -- Could someone notify Lexie's family of normal MRI and EEG? Thanks! documented in this encounter Plan of Treatment Not on file documented as of this encounter Visit Diagnoses Not on filedocumented in this encounter Care Teams Chemical Dependency Counselor Relationship Specialty Start Date End Date Cortney Pineda SENIOR ADMINISTRATIVE SUPPORT [address] [place] [address] PCP - General 06/09/19 Bassem Cho MD [address] [facility] [address] [place] [address] 12/20/18 documented as of this encounter
--- OUTSIDE RECORDS SUMMARY | 2024-10-16 03:37 | XMS_ITS | Encounter Summary ---
Author Organization [facility] Address [address] [place] [address] Care Team Providers Care Crumb Packer Name Role Phone Bassem Cho MD Primary Care Provider Encounter Details Date Type Department Care Team (Latest Contact Info) Description 10/08/2018 8:52 PM CONTRACT AGENT - 10/08/2018 10:11 PM CONTRACT AGENT Hospital Encounter [facility] Gilbert Mendenhall MD [address] [facility] [address] [place] [address] Sprain of left foot; Sprain of ligament of left ankle; Other retirement (current) drug therapy; Overexertion from prolonged static or awkward postures, initial encounter; Activity, other involving climbing, rappelling and jumping off Social History Tobacco Use Types Packs/Day Years Used Date Smoking Tobacco: Never Assessed Comments Unknown Sex and Gender Information Value Date Recorded Sex Assigned at Not on file Legal Sex Female 6:43 AM CONTRACT AGENT Gender Identity . 01/07/2021 9:24 AM CDT Sexual Orientation Not on file documented as of this encounter Last Filed Vital Signs Vital Sign Reading Time Taken Comments Blood Pressure 113/70 10/08/2018 9:00 PM CONTRACT AGENT Pulse 76 10/08/2018 9:00 PM CONTRACT AGENT Temperature 36.3 ??C (97.4 ??F) 10/08/2018 9:00 PM CS T Respiratory Rate - - Oxygen Saturation 100% 10/08/2018 9:00 PM CONTRACT AGENT Inhaled Oxygen Concentration - - Weight 46.3 kg (102 lb) 10/08/2018 9:00 PM CONTRACT AGENT Height - - Body Mass Index - - documented in this encounter Medications at Time of Discharge albuterol (PROVENTIL,OLIVER ANDRY) 2.5 mg /3 mL [...] 300 mg by mouth every morning. 1 07/05/2018 9 clonazePAM (KlonoPIN) 1 mg tablet Take 1 tablet (1 mg total) by mouth 3 (three) times a day Ct stated only taking 1x day and plans to go back to 3x day as ct id it helps with her anxiety. 3 divalproex ER (DEPAKOTE ER) 500 mg 24 hr tablet TAKE 2 TABLETS BY MOUTH AT BEDTIME 0 05/29/2018 2 QUEtiapine (SEROquel) 100 mg tablet TAKE 1 TABLET BY MOUTH EVERYDAY AT BEDTIME 1 07/05/2018 9 QVAR REDIHALER 40 mcg/actuation inhaler Inhale 2 puffs 2 (two) times a day. 2 07/08/2018 9 SYMBICORT 160-4.5 mcg/actuation inhaler INL 2 PFS PO BID 1 08/20/2018 07/05/20 2 1 documented as of this encounter Plan of Treatment Not on file documented as of this encounter Procedures Procedure Name Priority Date/Time Associated Diagnosis Comments XR FOOT LEFT 3 OR MORE VIEWS Routine 10/08/2018 12:00 AM CONTRACT AGENT documented in this encounter Results * XR Foot Left 3 or More Views (10/08/2018 12:00 AM CONTRACT AGENT) Anatomical Region Laterality Modality Lower Extremities, Foot [facility] 10/08/2018 Impressions 10/08/2018 9:42 PM CONTRACT AGENT ??No acute osseous abnormality is evident. THIS IS AN ELECTRONICALLY VERIFIED FINAL REPORT 10/08/2018 9:39 PM - Electronically signed by Issac Hayes M.D., MD D: ??10/08/2018 9:39 PM T: Report ID: [id number] Reading Location: ??[id number] [EOD] Narrative 10/08/2018 9:42 PM CONTRACT AGENT EXAM DESCRIPTION: ??Foot LT 3 View Min REASON FOR STUDY: ??Left foot pain tonight after tripping over a cat. TECHNIQUE: ??AP, lateral and oblique radiographic views acquired of the left foot. COMPARISON: ??None available FINDINGS: BONES/JOINTS: No acute fracture or dislocation. No suspicious bone lesion. ?? Normal osseous mineralization. ??No significant joint space narrowing or marginal osteophyte formation. SOFT TISSUES: Grossly unremarkable. OTHER: No other significant finding. Procedure Note Provider, MD Solange - 02/15/2021 EXAM DESCRIPTION: Foot LT 3 View Min REASON FOR STUDY: Left foot pain tonight after tripping over a cat. TECHNIQUE: AP, lateral and oblique radiographic views acquired of theleft foot. COMPARISON: None available FINDINGS: BONES/JOINTS: No acute fracture or dislocation. No suspicious bone lesion. Normal osseous mineralization. No significant joint space narrowing or marginal osteophyte formation. SOFT TISSUES: Grossly unremarkable. OTHER: No other significant finding. IMPRESSION: No acute osseous abnormality is evident. 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
--- OUTSIDE RECORDS SUMMARY | 2024-10-16 03:37 | XMS_ITS | Encounter Summary ---
Author Organization [facility] Care Team Providers Care Deputy Assessor Name Role Phone Bassem Cho MD Unavailable [phone] Cortney Pindea [facility] Primary Care Provider [phone] Encounter Details Date Type Department Care Team (Latest Contact Info) Description 08/13/2019 Travel Social History Tobacco Use Types Packs/Day Years Used Date Smoking Tobacco: Never Smokeless Tobacco: Never Alcohol Use Standard Drinks/Week Comments No 0 (1 standard drink = 0.6 oz pur e alcohol) Comments Unknown Sex and Gender Information Value Date Recorded Sex Assigned at Not on file Legal Sex Female 6:43 AM LITHOGRAPHED PLATE INSPECTOR Gender Identity . 01/07/2021 9:24 AM CDT Sexual Orientation Not on file documented as of this encounter Plan of Treatment Not on file documented as of this encounter Visit Diagnoses Not on filedocumented in this encounter Care Teams Deputy Assessor Relationship Specialty Start Date End Date Cortney Pineda NP [address] [facility] [place] [address] PCP - General 06/09/19 Bassem Cho MD [address] [facility] [address] [place] [address] 12/20/18 documented as of this encounter
--- OUTSIDE RECORDS SUMMARY | 2024-10-16 03:38 | XMS_ITS | Encounter Summary ---
Author Organization [facility] Healthcare Address [address] [place] [address] Care Team Providers Care Power House Control Room Operator Name Role Phone Bassem Cho MD Primary Care Provider Encounter Details Date Type Department Care Team (Late st Contact Info) Description 06/19/2017 7:59 PM CDT - 06/19/2017 11:46 PM CDT Emergency [facility] [place] [address] Cris Martinez MD [address] [facility] [address] [place] [address] Discharge Disposition: Discharge to home or self care Social History Tobacco Use Types Packs/Day Years Used Date Smoking Tobacco: Never Assessed Comments Unknown Sex and Gender Information Value Date Recorded Sex Assigned at Not on file Legal Sex Female 6:43 AM ORTHOPEDIC SURGEON Gender Identity . 01/07/2021 9:24 AM CDT Sexual Orientation Not on file documented as of this encounter Discharge Disposition Disposition Code Departure Means Destination Discharge to home or self care documented in this encounter Plan of Treatment Not on file documented as of this encounter Procedures Procedure Name Priority Date/Time Associated Diagnosis Comments DIFFERENTIAL AUTO STAT 06/19/2017 9:3 7 PM CDT CBC WITHOUT DIFFERENTIAL STAT 06/19/2017 9:37 PM CDT DISCHARGE LABORATORY CUMULATIVE REPORT 06/19/2017 12:00 AM CDT documented in this encounter Results * (ABNORMAL) CBC without differential (06/19/2017 9:37 PM CDT) WBC 7.74 3.80 - 9.90 K/cumm [facility] RBC 4.53 3.90 - 5.20 M/cumm [facility] Hgb 12.9 11.9 - 15.5 g/dL [facility] Hct 36.8 35.6 - 45.5 % [facility] MCV 81.2(L) 81.3 - 96.4 fL [facility] MCH 28.5 27.1 - 33.3 pg [facility] MCHC 35.1 32.3 - 35.7 g/dL [facility] RDW CV 13.1 11.1 - 14.9 % [facility] RDW SD 38.5 35.7 - 48.1 fL [facility] Plt 333 150 - 400 K/cumm [facility] MPV 8.8(L) 9.1 - 12.3 fL [facility] NRBC abs 0.00 0.00 - 0.01 K/cumm [facility] NRBC 0.0 % [facility] Blood specimen (specimen) 06/19/2017 9:37 PM CDT 06/19/2017 9:41 PM CDT us Cris Medrano MD LAB BLOOD ORDERABLES Fi nal Result [facility] [place] [address] * Differential, auto (06/19/2017 9:37 PM CDT) Neutrophil abs 4.52 1.50 - 9.40 K/cumm [facility] Lymphocyte abs 2.67 1.00 - 7.20 K/cumm [facility] Monocyte abs 0.32 0.10 - 1.70 K/cumm [facility] Eosinophil abs 0.19 0.10 - 1.60 K/cumm [facility] Basophil abs 0.03 0.00 - 0.30 K/cumm [facility] Imm gran abs 0.01 0.00 - 0.20 K/cumm [facility] Neutrophil pct 58.4 % [facility] Lymphocyte pct 34.5 % [facility] Monocyte pct 4.1 % [facility] Eosinophil pct 2.5 % [facility] Basophil pct 0.4 % [facility] Imm gran pct 0.1 % [facility] Blood specimen (specimen) 06/19/2017 9:37 PM CDT 06/19/2017 9:41 PM CDT Cris Medrano MD LAB BLOOD ORDERABLES Fi nal Result [facility] [place] [address] * DISCHARGE LABORATORY CUMULATIVE REPORT (06/19/2017 12:00 AM CDT) Narrative 06/19/2017 12:00 AM CDT Ordered by an unspecified provider. Historical Provider LAB BLOOD ORDERABLES Maite l Result documented in this encounter Visit Diagnoses Not on filedocumented in this encounter Care Teams Power House Control Room Operator Relationship Specialty Start Date End Date Bassem Cho MD [address] [facility] [address] [place] [address] PCP - General 01/17/17 12/19/18 documented as of this encounter
--- OUTSIDE RECORDS SUMMARY | 2024-10-16 03:38 | XMS_ITS | Encounter Summary ---
Author Organization [facility] Healthcare Address [address] [place] [address] Care Team Providers Care Hot Plate Press Operator Name Role Phone Bassem Cho MD Primary Care Provider Encounter Details Date Type Department Care Team (Latest Contact Info) Description 10/11/2017 8:44 AM X RAY EQUIPMENT MECHANIC - 10/11/2017 11:59 PM X RAY EQUIPMENT MECHANIC Hospital Encounter [facility] [phone] [place] [address] [place] [id number] Discharge Disposition: Discharge to home or self care Social History Tobacco Use Types Packs/Day Years Used Date Smoking Tobacco: Never Assessed Comments Unknown Sex and Gender Information Value Date Recorded Sex Assigned at Not on file Legal Sex Female 6:43 AM X RAY EQUIPMENT MECHANIC Gender Identity . 01/07/2021 9:24 AM CDT Sexual Orientation Not on file documented as of this encounter Discharge Disposition Disposition Code Departure Means Destination Discharge to home or self care documented in this encounter Plan of Treatment Not on file documented as of this encounter Procedures Procedure Name Priority Date/Time Associated Diagnosis Comments XR SPINE (ENTIRE) NON WT 1V Routine 10/11/2017 2:57 PM X RAY EQUIPMENT MECHANIC documented in this encounter Results * XR Spine (Entire) Non Wt 1V (10/11/2017 2:57 PM X RAY EQUIPMENT MECHANIC) Anatomical Region Laterality Modality Spine N/A Radiographic Veda ging 10/11/2017 2:57 PM X RAY EQUIPMENT MECHANIC Narrative 10/11/2017 3:25 PM X RAY EQUIPMENT MECHANIC REJI TREJO M.D. FINAL REPORT ACC# ??Date Time ??Exam [id number] Oct 11, 2017 08:57:00 [id number] SCOLI T/L SPINE 2-3 VIEWS EXAMINATION: ??SCOLIOSIS ?10-11-2017 HISTORY: Prematurity, ASD; now low back pain FINDINGS: AP and lateral erect films of the entire thoracolumbosacral spine are read without comparison to recent radiographs. ??No significant scoliosis identified. ??No anomaly is seen. ??There is no significant pelvic tilt. ??The thoracic kyphosis and lumbar lordosis are grossly within normal limits. ??In particular there is no evidence of spondylolisthesis and no spondylolysis is identified. IMPRESSION: ??Normal without significant scoliosis and without spondylolisthesis Electronically signed by: Reji Trejo MD Requested By: DAISY STATON M.D. Dictated By: ?? REJI TREJO M.D. ??on Oct 11 2017 ??9:23A This document has been electronically signed by: REJI TREJO M.D. on Oct 11 2017 ??9:23A [id number] TREJO M.D. FINAL REPORT Attending: ??SHEMAR, ??DAISY Requesting: ??SHEMAR, ??DAISY Requesting Fax: ?? Attending Fax: ?? Attending ID: ??[id number] Requesting ID: ??[id number] Report To 1 ID: ??[id number] ? Report To 1 Name: ??, ?? Report To 1 FAX: ?? NextGen Order #: ?? Procedure Note Miscellaneous, Not In File - 10/11/2017 REJI TREJO M.D. FINAL REPORT ACC# Date Time Exam [id number] Oct 11, 2017 08:57:00 [id number] SCOLI T/L SPINE 2-3 VIEWS EXAMINATION: SCOLIOSIS 10-11-2017 HISTORY: Prematurity, ASD; now low back pain FINDINGS: AP and lateral erect films of the entire thoracolumbosacral spine are read without comparison to recent radiographs. No significant scoliosis identified. No anomaly is seen. There is no significant pelvic tilt. The thoracic kyphosis and lumbar lordosis are grossly within normal limits. In particular there is no evidence of spondylolisthesis and no spondylolysis is identified. IMPRESSION: Normal without significant scoliosis and without spondylolisthesis Electronically signed by: Reji Trejo MD Requested By: DAISY STATON M.D. Dictated By: REJI TREJO M.D. on Oct 11 2017 9:23A This document has been electronically signed by: REJI TREJO M.D. on Oct 11 2017 9:23A [id number] TREJO M.D. FINAL REPORT Attending: DAISY STATON Requesting: DAISY STATON Requesting Fax: Attending Fax: Attending ID: [id number] Requesting ID: [id number] Report To 1 ID: [id number] Report To 1 Name: , Report To 1 FAX: NextGen Order #: [id number] Daisy Staton MD IMG XR PROCEDURES Final Res ult documented in this encounter Visit Diagnoses Not on filedocumented in this encounter Care Teams Hot Plate Press Operator Relationship Specialty Start Date End Date Bassem Cho MD [address] [place] [address] PCP - General 01/17/17 12/19/18 documented as of this encounter
--- OUTSIDE RECORDS SUMMARY | 2024-10-16 03:38 | XMS_ITS | Encounter Summary ---
Author Organization [facility] Facility Care Team Providers Care Dough Cutting Machine Operator Name Role Phone Unavailable Primary Care Provider Unavailabl e Encounter Details Date Type Department Care Team (Latest Contact Info) Description 11/30/2010 2:51 PM AGRONOMY SPECIALIST - 11/30/2010 7:55 PM AGRONOMY SPECIALIST Hospital Encounter [facility] Pnp, Eu, INSEAM LEVELER Asthma; Streptococcal sore throat Social History Tobacco Use Types Packs/Day Years Used Date Smoking Tobacco: Never Assessed Comments Unknown Sex and Gender Information Value Date Recorded Sex Assigned at Not on file Legal Sex Female 6:43 AM AGRONOMY SPECIALIST Gender Identity . 01/07/2021 9:24 AM CDT Sexual Orientation Not on file documented as of this encounter Plan of Treatment Not on file documented as of this encounter Visit Diagnoses Diagnosis Asthma Unspecified asthma Streptococcal sore throat documented in this encounter
--- OUTSIDE RECORDS SUMMARY | 2024-10-16 03:38 | XMS_ITS | Encounter Summary ---
Author Organization [facility] Facility Care Team Providers Care Sonography Technician Name Role Phone Unavailable Primary Care Provider Unavailabl e Encounter Details Date Type Department Care Team (Latest Contact Info) Description 08/24/2008 10:39 PM CORROSION ENGINEER - 08/25/2008 3:43 AM CORROSION ENGINEER Hospital Encounter [facility] Vivian Dent Other and unspecified noninfectious gastroenteritis and colitis; Asthma Social History Tobacco Use Types Packs/Day Years Used Date Smoking Tobacco: Never Assessed Comments Unknown Sex and Gender Information Value Date Recorded Sex Assigned at Not on file Legal Sex Female 6:43 AM CORROSION ENGINEER Gender Identity . 01/07/2021 9:24 AM CDT Sexual Orientation Not on file documented as of this encounter Plan of Treatment Not on file documented as of this encounter Visit Diagnoses Diagnosis Other and unspecified noninfectious gastroenteritis and colitis Asthma Unspecified asthma documented in this encounter
--- OUTSIDE RECORDS SUMMARY | 2024-10-16 03:38 | XMS_ITS | Encounter Summary ---
Author Organization [facility] Healthcare Address [address] [place] [address] Care Team Providers Care Biological Scientist Name Role Phone Bassem Cho MD Primary Care Provider Encounter Details Date Type Department Care Team (Late st Contact Info) Description 03/13/2017 5:28 PM CDT Hospital Encounter [facility] OP Bassem Cho MD [address] [facility] [address] [place] [address] [id number] Pain in right ankle Social History Tobacco Use Types Packs/Day Years Used Date Smoking Tobacco: Never Assessed Comments Unknown Sex and Gender Information Value Date Recorded Sex Assigned at Not on file Legal Sex Female 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 01/07/2021 9:24 AM CDT Sexual Orientation Not on file documented as of this encounter Plan of Treatment Not on file documented as of this encounter Procedures Procedure Name Priority Date/Time Associated Diagnosis Comments XR FOOT RIGHT 3 OR MORE VIEWS Routine 03/13/2017 5:32 PM CDT XR ANKLE RIGHT 3 OR MORE VIEWS Routine 03/13/2017 5:32 PM CDT documented in this encounter Results * XR Ankle Right 3 or More Views (03/13/2017 5:32 PM CDT) Anatomical Region Laterality Modality Lower Extremities, Ankle Right Radiogr aphic Imaging 03/13/2017 5:32 PM CDT Impressions 03/13/2017 6:19 PM CDT ??No acute abnormality identified. THIS IS AN ELECTRONICALLY VERIFIED REPORT 03/13/2017 6:16 PM: ??Mohsen Alvarez M.D. ?? Mohsen Alvarez M.D. AR:mar 06:16 PM 06:16 PM KADI [EOD] Narrative 03/13/2017 6:19 PM CDT EXAMINATION: ??Three-view right ankle HISTORY: ??Right ankle pain since fall 6 days ago COMPARISON: ??None TECHNIQUE: ??AP, oblique, and lateral views of the right ankle FINDINGS: ??No fracture, malalignment, or suspicious osseous lesion is identified. ??Joint spaces and growth plates appear normal. ??Soft tissues are unremarkable. Procedure Note Provider, MD Solange - 02/15/2021 EXAMINATION: Three-view right ankle HISTORY: Right ankle pain since fall 6 days ago COMPARISON: None TECHNIQUE: AP, oblique, and lateral views of the right ankle FINDINGS: No fracture, malalignment, or suspicious osseous lesion is identified. Joint spaces and growth plates appear normal. Soft tissuesare unremarkable. IMPRESSION: No acute abnormality identified. THIS IS AN ELECTRONICALLY VERIFIED REPORT 03/13/2017 6:16 PM: Mohsen Alvarez M.D. Mohsen Alvarez M.D. AR:mar 06:16 PM 06:16 PM KADI [EOD] us Bassem Cho MD IMG XR PROCEDURES Final Result * XR Foot Right 3 or More Views (03/13/2017 5:32 PM CDT) Anatomical Region Laterality Modality Lower Extremities, Foot Right Radiogra phic Imaging 03/13/2017 5:32 PM CDT Impressions 03/13/2017 6:18 PM CDT ??No acute abnormality identified. THIS IS AN ELECTRONICALLY VERIFIED REPORT 03/13/2017 6:14 PM: ??Mohsen Alvarez M.D. ?? Mohsen Alvarez M.D. AR:mar 06:14 PM 06:14 PM RYN [EOD] Narrative 03/13/2017 6:18 PM CDT EXAMINATION: ??Three-view right foot HISTORY: ??Right foot pain since fall 6 days ago COMPARISON: ??None TECHNIQUE: ??AP, oblique, and lateral views of right foot FINDINGS: ??No fracture, malalignment, or suspicious osseous lesion is identified. ??Joint spaces and growth plates appear normal. ??Soft tissues are unremarkable. Procedure Note Provider, MD Solange - 02/15/2021 EXAMINATION: Three-view right foot HISTORY: Right foot pain since fall 6 days ago COMPARISON: None TECHNIQUE: AP, oblique, and lateral views of right foot FINDINGS: No fracture, malalignment, or suspicious osseous lesion is identified. Joint spaces and growth plates appear normal. Soft tissuesare unremarkable. IMPRESSION: No acute abnormality identified. THIS IS AN ELECTRONICALLY VERIFIED REPORT 03/13/2017 6:14 PM: Mohsen Alvarez M.D. Mohsen Alvarez M.D. AR:mar 06:14 PM 06:14 PM KADI [EOD] us Bassem Cho MD IMG XR PROCEDURES Final Result documented in this encounter Visit Diagnoses Diagnosis Pain in right ankle documented in this encounter Care Teams Biological Scientist Relationship Specialty Start Date End Date Bassem Cho MD [address] [address] [place] [address] PCP - General 01/17/17 12/19/18 documented as of this encounter
--- OUTSIDE RECORDS SUMMARY | 2024-10-16 03:38 | XMS_ITS | Encounter Summary ---
Author Organization [facility] Healthcare Address [address] [place] [address] Care Team Providers Care Window Glazier Name Role Phone Miscellaneous, Not In File Primary Care Provider Unavailable Encounter Details Date Type Department Care Team (Latest Contact Info) Description 01/01/2017 5:51 PM CDT - 01/01/2017 11:59 PM CDT Hospital Encounter [facility] OP INTERIM [phone] Herbert Burnett MD [address] [facility] [address] [place] [address] Discharge Disposition: Discharge to home or self care Social History Tobacco Use Types Packs/Day Years Used Date Smoking Tobacco: Never Assessed Comments Unknown Sex and Gender Information Value Date Recorded Sex Assigned at Not on file Legal Sex Female 6:43 AM 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 01/07/2021 9:24 AM CDT Sexual Orientation Not on file documented as of this encounter Discharge Disposition Disposition Code Departure Means Destination Discharge to home or self care documented in this encounter Plan of Treatment Not on file documented as of this encounter Procedures Procedure Name Priority Date/Time Associated Diagnosis Comments XR SPINE LUMBAR 2 OR 3 VIEWS Routine 01/01/2017 11:25 PM CDT XR SPINE THORACIC 2 VIEWS Routine 01/01/2017 11:25 PM CDT XR SPINE CERVICAL 2 OR 3 VIEWS Routine 01/01/2017 11:25 PM CDT documented in this encounter Results * XR Spine Lumbar 2 or 3 Views (01/01/2017 11:25 PM CDT) Anatomical Region Laterality Modality Spine N/A Radiographic Veda ging 01/01/2017 11:2 5 PM CDT Narrative 01/01/2017 11:25 PM CDT DIPAK BARKER M.D. FINAL REPORT ACC# ??Date Time ??Exam [id number] Jan 01, 2017 18:25:00 [id number] Spine Cerv 3views or less [id number] Jan 01, 2017 18:25:00 00997 Spine Thoracic 2 views [id number] Jan 01, 2017 18:25:00 [id number] Spine Lumbar 2 or 3 views EXAMINATION: ?? 1. Cervical spine 3 views or less 2. Thoracic spine 2 views 3. Lumbar spine 2 or 3 views HISTORY: Back pain FINDINGS: Two view cervical, 2 views thoracic and 2 views lumbar spine submitted without comparison. Cervical spine: There are no fractures. There is no prevertebral soft tissue swelling. Alignment is normal. Intervertebral disc space heights are normal. Thoracic spine: There are no fractures. Alignment is normal. The intervertebral disc space heights are normal. Lumbar spine: There are no fractures. Alignment is normal. Intervertebral disc space heights are normal. IMPRESSION: ?? 1. Normal cervical, thoracic and lumbar spine evaluation. Requested By: HERBERT BURNETT ??MJayaD. ? Dictated By: ?? IDPAK BARKER M.D. ??on Dec ??2016 ??7:06A This document has been electronically signed by: DIPAK BARKER M.D. on Dec ??2016 ??7:06A [id number] Procedure Note Miscellaneous, Notinfile / Provider, MD Solange - 02/22/2017 DIPAK BARKER M.D. FINAL REPORT ACC# Date Time Exam [id number] Jan 01, 2017 18:25:00 [id number] Spine Cerv 3views or less [id number] Jan 01, 2017 18:25:00 [id number] Spine Thoracic 2 views [id number] Jan 01, 2017 18:25:00 [id number] Spine Lumbar 2 or 3 views EXAMINATION: 1. Cervical spine 3 views or less 2. Thoracic spine 2 views 3. Lumbar spine 2 or 3 views HISTORY: Back pain FINDINGS: Two view cervical, 2 views thoracic and 2 views lumbar spine submitted without comparison. Cervical spine: There are no fractures. There is no prevertebral soft tissue swelling. Alignment is normal. Intervertebral disc space heights are normal. Thoracic spine: There are no fractures. Alignment is normal. The intervertebral disc space heights are normal. Lumbar spine: There are no fractures. Alignment is normal. Intervertebral disc space heights are normal. IMPRESSION: 1. Normal cervical, thoracic and lumbar spine evaluation. Requested By: HERBERT BURNETT M.D. Dictated By: DIPAK BARKER M.D. on Jan 02 2017 7:06A This document has been electronically signed by: DIPAK BARKER M.D. on Jan 02 2017 7:06A [id number] us Not In File Miscellaneous IMG XR PROCEDURES Maite l Result * XR Spine Cervical 2 or 3 Views (01/01/2017 11:25 PM CDT) Anatomical Region Laterality Modality Spine N/A Radiographic Veda ging 01/01/2017 11:2 5 PM CDT Narrative 01/01/2017 11:25 PM CDT DIPAK BARKER M.D. FINAL REPORT ACC# ??Date Time ??Exam [id number] Jan 01, 2017 18:25:00 [id number] Spine Cerv 3views or less [id number] Jan 01, 2017 18:25:00 66454 Spine Thoracic 2 views [id number] Jan 01, 2017 18:25:00 15362 Spine Lumbar 2 or 3 views EXAMINATION: ?? 1. Cervical spine 3 views or less 2. Thoracic spine 2 views 3. Lumbar spine 2 or 3 views HISTORY: Back pain FINDINGS: Two view cervical, 2 views thoracic and 2 views lumbar spine submitted without comparison. Cervical spine: There are no fractures. There is no prevertebral soft tissue swelling. Alignment is normal. Intervertebral disc space heights are normal. Thoracic spine: There are no fractures. Alignment is normal. The intervertebral disc space heights are normal. Lumbar spine: There are no fractures. Alignment is normal. Intervertebral disc space heights are normal. IMPRESSION: ?? 1. Normal cervical, thoracic and lumbar spine evaluation. Requested By: HERBERT BURNETT ??M.D. ? Dictated By: ?? DIPAK BARKER M.D. ??on Dec ??2016 ??7:06A This document has been electronically signed by: DIPAK BARKER M.D. on Dec ??4 2016 ??7:06A [id number] Procedure Note Miscellaneous, Notinfile / Provider, MD Solange - 02/22/2017 DIPAK BARKER M.D. FINAL REPORT ACC# Date Time Exam [id number] Jan 01, 2017 18:25:00 [id number] Spine Cerv 3views or less [id number] Jan 01, 2017 18:25:00 [id number] Spine Thoracic 2 views [id number] Jan 01, 2017 18:25:00 01957 Spine Lumbar 2 or 3 views EXAMINATION: 1. Cervical spine 3 views or less 2. Thoracic spine 2 views 3. Lumbar spine 2 or 3 views HISTORY: Back pain FINDINGS: Two view cervical, 2 views thoracic and 2 views lumbar spine submitted without comparison. Cervical spine: There are no fractures. There is no prevertebral soft tissue swelling. Alignment is normal. Intervertebral disc space heights are normal. Thoracic spine: There are no fractures. Alignment is normal. The intervertebral disc space heights are normal. Lumbar spine: There are no fractures. Alignment is normal. Intervertebral disc space heights are normal. IMPRESSION: 1. Normal cervical, thoracic and lumbar spine evaluation. Requested By: HERBERT BURNETT M.D. Dictated By: DIPAK BARKER M.D. on Jan 02 2017 7:06A This document has been electronically signed by: DIPAK BARKER M.D. on Jan 02 2017 7:06A [id number] us Not In File Miscellaneous IMG XR PROCEDURES Maite l Result * XR Spine Thoracic 2 Views (01/01/2017 11:25 PM CDT) Anatomical Region Laterality Modality Spine N/A Radiographic Veda ging 01/01/2017 11:2 5 PM CDT Narrative 01/01/2017 11:25 PM CDT DIPAK BARKER M.D. FINAL REPORT ACC# ??Date Time ??Exam [id number] Jan 01, 2017 18:25:00 [id number] Spine Cerv 3views or less [id number] Jan 01, 2017 18:25:00 55094 Spine Thoracic 2 views [id number] Jan 01, 2017 18:25:00 [id number] Spine Lumbar 2 or 3 views EXAMINATION: ?? 1. Cervical spine 3 views or less 2. Thoracic spine 2 views 3. Lumbar spine 2 or 3 views HISTORY: Back pain FINDINGS: Two view cervical, 2 views thoracic and 2 views lumbar spine submitted without comparison. Cervical spine: There are no fractures. There is no prevertebral soft tissue swelling. Alignment is normal. Intervertebral disc space heights are normal. Thoracic spine: There are no fractures. Alignment is normal. The intervertebral disc space heights are normal. Lumbar spine: There are no fractures. Alignment is normal. Intervertebral disc space heights are normal. IMPRESSION: ?? 1. Normal cervical, thoracic and lumbar spine evaluation. Requested By: HERBERT BURNETT ??M.Marisa ? Dictated By: ?? DIPAK BARKER M.D. ??on Dec ??2016 ??7:06A This document has been electronically signed by: DIPAK BARKER M.D. on Dec ??2016 ??7:06A [id number] Procedure Note Miscellaneous, Notinfile / ProviderSolange MD - 02/22/2017 DIPAK BARKER M.D. FINAL REPORT ACC# Date Time Exam [id number] Jan 01, 2017 18:25:00 [id number] Spine Cerv 3views or less [id number] Jan 01, 2017 18:25:00 30450 Spine Thoracic 2 views [id number] Jan 01, 2017 18:25:00 [id number] Spine Lumbar 2 or 3 views EXAMINATION: 1. Cervical spine 3 views or less 2. Thoracic spine 2 views 3. Lumbar spine 2 or 3 views HISTORY: Back pain FINDINGS: Two view cervical, 2 views thoracic and 2 views lumbar spine submitted without comparison. Cervical spine: There are no fractures. There is no prevertebral soft tissue swelling. Alignment is normal. Intervertebral disc space heights are normal. Thoracic spine: There are no fractures. Alignment is normal. The intervertebral disc space heights are normal. Lumbar spine: There are no fractures. Alignment is normal. Intervertebral disc space heights are normal. IMPRESSION: 1. Normal cervical, thoracic and lumbar spine evaluation. Requested By: HERBERT BURNETT M.D. Dictated By: DIPAK BARKER M.D. on Jan 02 2017 7:06A This document has been electronically signed by: DIPAK BARKER M.D. on Jan 02 2017 7:06A [id number] us Not In File Miscellaneous IMG XR PROCEDURES Maite l Result documented in this encounter Visit Diagnoses Not on filedocumented in this encounter Care Teams Window Glazier Relationship Specialty Start Date End Date Miscellaneous, Not In File PCP - General 01/01/17 documented as of this encounter
--- OUTSIDE RECORDS SUMMARY | 2024-10-16 03:38 | XMS_ITS | Encounter Summary ---
Author Organization [facility] Healthcare Address [address] [place] [address] Care Team Providers Care Art Psychotherapist Or Therapist Name Role Phone Bassem Cho MD Primary Care Provider Encounter Details Date Type Department Care Team (Latest Contact Info) Description 02/20/2017 4:30 PM CDT - 02/28/2017 4:30 PM CDT Hospital Encounter [facility] OP Herbert Recio MD [address] [facility] [address] [place] [address] Other muscle spasm Social History Tobacco Use Types Packs/Day Years Used Date Smoking Tobacco: Never Assessed Comments Unknown Sex and Gender Information Value Date Recorded Sex Assigned at Not on file Legal Sex Female 6:43 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 01/07/2021 9:24 AM CDT Sexual Orientation Not on file documented as of this encounter Plan of Treatment Not on file documented as of this encounter Visit Diagnoses Diagnosis Other muscle spasm documented in this encounter Care Teams Art Psychotherapist Or Therapist Relationship Specialty Start Date End Date Bassem Cho MD [address] [place] [address] PCP - General 01/17/17 12/19/18 documented as of this encounter
--- OUTSIDE RECORDS SUMMARY | 2024-10-16 03:38 | XMS_ITS | Encounter Summary ---
Author Organization [facility] Facility Care Team Providers Care Obstetrics Specialist Name Role Phone Unavailable Primary Care Provider Unavailabl e Encounter Details Date Type Department Care Team (Latest Contact Info) Description 07/08/2009 5:33 PM CDT - 07/08/2009 7:39 PM CDT [facility] Influenza with respiratory manifestation Social History Tobacco Use Types Packs/Day Years Used Date Smoking Tobacco: Never Assessed Comments Unknown Sex and Gender Information Value Date Recorded Sex Assigned at Not on file Legal Sex Female 6:43 AM AUDIO VISUAL COORDINATOR Gender Identity . 01/07/2021 9:24 AM CDT Sexual Orientation Not on file documented as of this encounter Plan of Treatment Not on file documented as of this encounter Visit Diagnoses Diagnosis Influenza with respiratory manifestation documented in this encounter
--- OUTSIDE RECORDS SUMMARY | 2024-10-16 03:38 | XMS_ITS | Encounter Summary ---
Author Organization [facility] Facility Care Team Providers Care Spray Worker Name Role Phone Unavailable Primary Care Provider Unavailabl e Encounter Details Date Type Department Care Team (Late st Contact Info) Description 11/15/2008 6:07 PM STAVE CUTTER - 11/15/2008 8:26 PM STAVE CUTTER Hospital Encounter [facility] CL[facility]CON[facility] Physician, Eu Asthma Social History Tobacco Use Types Packs/Day Years Used Date Smoking Tobacco: Never Assessed Comments Unknown Sex and Gender Information Value Date Recorded Sex Assigned at Not on file Legal Sex Female 6:43 AM STAVE CUTTER Gender Identity . 01/07/2021 9:24 AM CDT Sexual Orientation Not on file documented as of this encounter Plan of Treatment Not on file documented as of this encounter Visit Diagnoses Diagnosis Asthma Unspecified asthma documented in this encounter
--- OUTSIDE RECORDS SUMMARY | 2024-10-16 03:38 | XMS_ITS | Encounter Summary ---
Author Organization [facility] Address [address] [place] [address] Care Team Providers Care Stick Roller Name Role Phone Bassem Cho MD Primary Care Provider Encounter Details Date Type Department Care Team (Latest Contact Info) Description 07/02/2017 4:05 PM CDT - 07/02/2017 11:59 PM CDT Hospital Encounter [facility] [phone] Destinee Devries MD [address] [phone] [place] [address] Discharge Disposition: Discharge to home or self care Social History Tobacco Use Types Packs/Day Years Used Date Smoking Tobacco: Never Assessed Comments Unknown Sex and Gender Information Value Date Recorded Sex Assigned at Not on file Legal Sex Female 6:43 AM SAP TECHNICAL DEVELOPER Gender Identity . 01/07/2021 9:24 AM CDT Sexual Orientation Not on file documented as of this encounter Discharge Disposition Disposition Code Departure Means Destination Discharge to home or self care documented in this encounter Plan of Treatment Not on file documented as of this encounter Procedures Procedure Name Priority Date/Time Associated Diagnosis Comments PROTEIN C ACTIVITY Routine 07/02/2017 4: 29 PM CDT FERRITIN Routine 07/02/2017 4:29 PM CDT DISCHARGE LABORATORY CUMULATIVE REPORT 07/02/2017 12:00 AM CDT documented in this encounter Results * Protein C activity (07/02/2017 4:29 PM CDT) Protein C 150 60 - 150 % [facility] Blood specimen (specimen) 07/02/2017 4:29 PM CDT 07/02/2017 5:31 PM CDT Destinee Devries MD LAB BLOOD ORDERABLES Final R esult Performing Organization Address City/[facility] Co de Phone Number [facility] [place] [address] [place] [address] * Ferritin (07/02/2017 4:29 PM CDT) Ferritin 20 7 - 140 ng/mL [facility] Blood specimen (specimen) 07/02/2017 4:29 PM CDT 07/02/2017 4:59 PM CDT Destinee Devries MD LAB BLOOD ORDERABLES Final R esult Performing Organization Address [facility] Co [place] [address] * DISCHARGE LABORATORY CUMULATIVE REPORT (07/02/2017 12:00 AM CDT) Narrative 07/02/2017 12:00 AM CDT Ordered by an unspecified provider. Historical Provider LAB BLOOD ORDERABLES Maite l Result documented in this encounter Visit Diagnoses Not on filedocumented in this encounter Care Teams Stick Roller Relationship Specialty Start Date End Date Bassem Cho MD [address] [place] [address] PCP - General 01/17/17 12/19/18 documented as of this encounter
--- OUTSIDE RECORDS SUMMARY | 2024-10-16 03:38 | XMS_ITS | Encounter Summary ---
Author Organization [facility] Facility Care Team Providers Care Factorer Name Role Phone Unavailable Primary Care Provider Unavailabl e Encounter Details Date Type Department Care Team (Latest Contact Info) Description 11/11/2009 11:41 PM ROLL OPERATOR - 11/12/2009 2:20 AM ROLL OPERATOR Hospital Encounter [facility] Feng Chavez MD [address] [facility] [address] [place] [address] Asthma; Acute upper respiratory infection; Nonspecific abnormal findings on radiological and examination of lung field Social History Tobacco Use Types Packs/Day Years Used Date Smoking Tobacco: Never Assessed Comments Unknown Sex and Gender Information Value Date Recorded Sex Assigned at Not on file Legal Sex Female 6:43 AM ROLL OPERATOR Gender Identity . 01/07/2021 9:24 AM CDT Sexual Orientation Not on file documented as of this encounter Plan of Treatment Not on file documented as of this encounter Visit Diagnoses Diagnosis Asthma Unspecified asthma Acute upper respiratory infection Acute upper respiratory infections of unspecified site Nonspecific abnormal findings on radiological and examination of lung field documented in this encounter
--- OUTSIDE RECORDS SUMMARY | 2024-10-16 03:38 | XMS_ITS | Encounter Summary ---
Author Organization [facility] Address [address] [place] [address] Care Team Providers Care Frit Burner Name Role Phone Bassem Cho MD Primary Care Provider Encounter Details Date Type Department Care Team (Late st Contact Info) Description 07/07/2018 11:50 PM CDT - 07/08/2018 1:47 AM CDT Hospital Encounter [facility] Juan Muñoz MD [address] [facility] [address] [place] [address] Mild intermittent asthma with acute exacerbation Social History Tobacco Use Types Packs/Day Years Used Date Smoking Tobacco: Never Assessed Comments Unknown Sex and Gender Information Value Date Recorded Sex Assigned at Not on file 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 01/07/2021 9:24 AM CDT Sexual Orientation Not on file documented as of this encounter Last Filed Vital Signs Vital Sign Reading Time Taken Comments Blood Pressure 126/70 07/07/2018 11:53 PM CDT Pulse 128 07/07/2018 11:53 PM CDT Temperature 37.1 ??C (98.8 ??F) 07/07/2018 1 1:53 PM CDT Respiratory Rate - - Oxygen Saturation 98% 07/07/2018 11: 53 PM CDT Inhaled Oxygen Concentration - - Weight 71.6 kg (157 lb 13.6 oz) 018 11:53 PM CDT Height 162.6 cm (5' 4 ) 07/07/2018 11:5 3 PM CDT Body Mass Index 27.1 07/07/2018 11:53 PM CDT Body Mass Index Percentile 94.95% 07/07 11:53 PM CDT Growth Chart: [facility] (Girls, 2- 20 Years) documented in this encounter Medications at Time of Discharge albuterol (PROVENTIL,OLIVER ANDRY) 2.5 mg /3 mL (0.083 %) nebulizer solution USE 1 VIAL PER NEBULIZER EVERY 4 HOURS NEEDED 0 07/08/2018 8 buPROPion XL (WELLBUTRIN XL) 300 mg 24 hr tablet Take 300 mg by mouth every morning. 1 07/05/2018 9 divalproex ER (DEPAKOTE ER) 500 mg 24 hr tablet TAKE 2 TABLETS BY MOUTH AT BEDTIME 0 05/29/2018 2 PROAIR HFA 90 mcg/actuation inhaler INL 2 PFS VIA SPACER Q 4 TO 6 H COU OR WHZ 1 07/05/2018 8 QUEtiapine (SEROquel) 100 mg tablet TAKE 1 TABLET BY MOUTH EVERYDAY AT BEDTIME 1 07/05/2018 9 QVAR REDIHALER 40 mcg/actuation inhaler Inhale 2 puffs 2 (two) times a day. 2 07/08/2018 9 documented as of this encounter Plan of Treatment Not on file documented as of this encounter Visit Diagnoses Diagnosis Mild intermittent asthma with acute exacerbation documented in this encounter Care Teams Frit Burner Relationship Specialty Start Date End Date Bassem Cho MD [address] [facility] [address] [place] [address] PCP - General 01/17/17 12/19/18 documented as of this encounter
--- OUTSIDE RECORDS SUMMARY | 2024-10-16 03:38 | XMS_ITS | Encounter Summary ---
Author Organization [facility] Address [address] [place] [address] Care Team Providers Care Research Chemical Engineer Name Role Phone Bassem Cho MD Primary Care Provider Encounter Details Date Type Department Care Team (Latest Contact Info) Description 10/24/2017 9:05 AM UNIT CLERK - 10/24/2017 11:59 PM UNIT CLERK Hospital Encounter [facility] [phone] [place] [address] [address] Discharge Disposition: Discharge to home or self care Social History Tobacco Use Types Packs/Day Years Used Date Smoking Tobacco: Never Assessed Comments Unknown Sex and Gender Information Value Date Recorded Sex Assigned at Not on file 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 01/07/2021 9:24 AM CDT Sexual Orientation Not on file documented as of this encounter Discharge Disposition Disposition Code Departure Means Destination Discharge to home or self care documented in this encounter Plan of Treatment Not on file documented as of this encounter Procedures Procedure Name Priority Date/Time Associated Diagnosis Comments MRI LUMBAR SPINE WO CONTRAST Routine 10/24/2017 3:58 PM UNIT CLERK documented in this encounter Results * MRI Lumbar Spine WO Contrast (10/24/2017 3:58 PM UNIT CLERK) Anatomical Region Laterality Modality Spine N/A Magnetic Resonan ce 10/24/2017 3:58 PM UNIT CLERK Narrative 10/24/2017 6:50 PM UNIT CLERK Melly OSPINA M.D. FINAL REPORT The radiology attending physician has personally reviewed this study, and has reviewed and/or edited this written report and agrees with it. ACC# ??Date Time ??Exam [id number] Oct 24, 2017 09:58:00 [id number] MRI L-SPINE WO EXAMINATION: ??Magnetic resonance imaging (MRI) of the lumber spine without contrast. HISTORY: Low back pain. TECHNIQUE: Multiplanar multi-weighted MRI of the lumbar spine was performed without intravenous contrast using the standard lumbar spine protocol. COMPARISON: None available. FINDINGS: The alignment of the lumbar spine is normal. Vertebral bodies demonstrate normal signal intensity on all sequences. There are no compression fractures. The conus medullaris terminates at the level of L1-L2. The distal spinal cord signal intensity is normal. ??An annular fissure is present at L5-S1 as well as a possible developing annular fissure at L4-L5. There is no spinal canal or neuroforaminal narrowing. ??Limited views of the abdomen and pelvis show no soft tissue abnormality. The aorta is normal. IMPRESSION: ??Annular fissure at L5-S1 as well as a possible developing annular fissure at L4-L5. ??These may represent the source of the patient's pain. Electronically signed by: Margie Medeiros M.D. Requested By: Petr Staton ??Melly ? Dictated By: ?? MOUNIKA YANG M.D. ??on Oct 24 2017 10:22A This document has been electronically signed by: MARGIE MEDEIROS M.D. on Oct 24 2017 12:47P Melly OSPINA M.D. FINAL REPORT The radiology attending physician has personally reviewed this study, and has reviewed and/or edited this written report and agrees with it. Attending: ??SHEMAR, ??PETR Requesting: ??Shemar, ??Petr Requesting Fax: ?? Attending Fax: ?? Attending ID: ??[id number] Requesting ID: ??[id number] Report To 1 ID: ??[id number] ? Report To 1 Name: ??, ?? Report To 1 FAX: ?? NextGen Order #: ?? Procedure Note Miscellaneous, Not In File - 10/24/2017 Melly OSPINA M.D. FINAL REPORT The radiology attending physician has personally reviewed this study, and has reviewed and/or edited this written report and agrees with it. ACC# Date Time Exam [id number] Oct 24, 2017 09:58:00 [id number] MRI L-SPINE WO EXAMINATION: Magnetic resonance imaging (MRI) of the lumber spine without contrast. HISTORY: Low back pain. TECHNIQUE: Multiplanar multi-weighted MRI of the lumbar spine was performed without intravenous contrast using the standard lumbar spine protocol. COMPARISON: None available. FINDINGS: The alignment of the lumbar spine is normal. Vertebral bodies demonstrate normal signal intensity on all sequences. There are no compression fractures. The conus medullaris terminates at the level of L1-L2. The distal spinal cord signal intensity is normal. An annular fissure is present at L5-S1 as well as a possible developing annular fissure at L4-L5. There is no spinal canal or neuroforaminal narrowing. Limited views of the abdomen and pelvis show no soft tissue abnormality. The aorta is normal. IMPRESSION: Annular fissure at L5-S1 as well as a possible developing annular fissure at L4-L5. These may represent the source of the patient's pain. Electronically signed by: Margie Medeiros M.D. Requested By: Petr Staton M.D. Dictated By: MOUNIKA YANG M.D. on Oct 24 2017 10:22A This document has been electronically signed by: MARGIE MEDEIROS M.D. on Oct 24 2017 12:47P Melly OSPINA M.D. FINAL REPORT The radiology attending physician has personally reviewed this study, and has reviewed and/or edited this written report and agrees with it. Attending: PETR STATON Requesting: Petr Staton Requesting Fax: Attending Fax: Attending ID: [id number] Requesting ID: [id number] Report To 1 ID: [id number] Report To 1 Name: , Report To 1 FAX: NextGen Order #: [id number] Petr Staton MD IMG MRI PROCEDURES Final Re sult documented in this encounter Visit Diagnoses Not on filedocumented in this encounter Care Teams Research Chemical Engineer Relationship Specialty Start Date End Date Bassem Cho MD [address] [facility] [facility] [address] [place] [id number] PCP - General 01/17/17 12/19/18 documented as of this encounter
--- OUTSIDE RECORDS SUMMARY | 2024-10-16 03:38 | XMS_ITS | Encounter Summary ---
Author Organization [facility] Healthcare Address [address] [place] [address] Care Team Providers Care Manager Banking Name Role Phone Bassem Cho MD Primary Care Provider Reason for Visit * Reason Comments Respiratory Distress Encounter Details Date Type Department Care Team (Late st Contact Info) Description 07/18/2018 5:15 PM CDT - 07/20/2018 3:45 PM CDT Emergency [facility] [id number] [place] [address] Feng Chavez MD [address] [address] Concha Sousa MD [address] [place] [address] Surinder Steven MD [address] [address] Persistent cough for 3 weeks or longer (Primary Dx); Breathlessness on exertion Discharge Disposition: Discharge to home or self care Social History Tobacco Use Types Packs/Day Years Used Date Smoking Tobacco: Never Smokeless Tobacco: Never Alcohol Use Standard Drinks/Week Comments No 0 (1 standard drink = 0.6 oz pur e alcohol) Comments Unknown Sex and Gender Information Value Date Recorded Sex Assigned at Not on file 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 01/07/2021 9:24 AM CDT Sexual Orientation Not on file documented as of this encounter Last Filed Vital Signs Vital Sign Reading Time Taken Comments Blood Pressure 122/76 07/20/2018 12:11 PM CDT Pulse 92 07/20/2018 3:40 AM CDT Temperature 36.9 ??C (98.4 ??F) 07/20/2018 1 2:11 PM CDT Respiratory Rate 20 07/20/2018 3:40 AM CDT Oxygen Saturation 99% 07/20/2018 8:32 AM CDT Inhaled Oxygen Concentration - - Weight 71.1 kg (156 lb 12 oz) 8 11:09 PM CDT Height 162 cm (5' 3.78 ) 07/18/2018 11: 09 PM CDT Body Mass Index 27.09 07/18/2018 11:09 PM CDT Body Mass Index Percentile 94.90% 07/18 11:09 PM CDT Growth Chart: [facility] (Girls, 2- 20 Years) documented in this encounter Discharge Summaries * Nik Rogers MD PhD - 07/20/2018 7:37 AM CDT Inpatient Discharge Summary BRIEF OVERVIEW Admitting Provider: Surinder Steven MD Discharge Provider: Surinder Steven MD Primary Care Physician at Discharge: Zak Cho MD [phone] Admission Date: 07/18/2018 Discharge Date: 07/20/2018 Admission Location: [facility] Primary Discharge Diagnosis: Mild persistent asthma Secondary Discharge Diagnosis: Anxiety Depression Bipolar 1 disorder, Anxiety DETAILS OF HOSPITAL STAY Presenting Problem/History of Present Illness: Ginny Oconnell is a 12 yo female with h/o bipolar, anxiety, depression and asthma who presents with about 3 weeks of persistent cough and SOB. She has had a headache, decreased energy, poor sleep,decreased PO, and decreased UOP, without nasal congestion, rhinorrhea or wheezing, that has gotten progressively worse over the past week. Prior to admission, she had completed several courses of lower dose prednisone and was recently started on Qvar 40mcg/act BID without any noticible benefit, andneeded to use her albuterol inhaler or nebulizer about every 4 hours to prevent fits of coughing. The week prior to admission she developed wheezing, which she had never experienced before and was seen in the [facility] ER on 07/16, where she had a clear chest XR, received duonebs with improvement and was sent home on 5 day course of 60mg prednisone. On the day of admission she had to use her nebulized albuterol 4 times in about 2h. She has missed 2 weeks of school related to this illness. Hospital Course: Lexie was started on albuterol and atrovent treatment every 2 hours upon admission and was able allie spaced to just albuterol every 4 hours as her cough and chest tightness improved. She was continued on her prednisone course started 07/16. During admission, she did not have any appreciable wheezing. Her symptoms of seasonal cough, often worse at night, are consistent with cough variant asthma,with this particular episode being aggravated by a recent viral illness. She was started on daily Zyrtec to help with allergy symptoms. She was seen by the asthma team who recommended continuation ofher current QVar 40 but for her PMD to consider QVar 80 if symptoms persist in 3-4 more weeks. She was provided with an asthma action plan. She was discharged on 5 more days (10 days total) of 60 mg prednisone. There is also, likely, a psychological component to her symptoms, with anxiety making her cough andsensation of SOB worse at times. She should continue her care for her anxiety, panic and bipolar disorder. During admission, she also received her annual flu shot. She was instructed to call her PMD on Sunday 07/22 to make a follow up appointment. Active Issues Requiring Follow-up: Follow up for chronic care of her asthma. Consider increasing Qvar to 80 if symptoms persist for 3-4 more weeks. Test Results Pending at Discharge: None Pertinent Test Results: Respiratory Pathogen nucleic acids NOT DETECTED (NEGATIVE) - this test covers many, but not all respiratory viral and atypical bacterial infections XR Chest PA Lateral 2 Views: The lungs are clear. No pneumothorax, pleural effusion, pulmonary edema, or pneumonic consolidation. Discharge Details Physical Exam at Discharge: Discharge Condition: good Pulse: 92 Resp: 20 BP: 110/60 Temp: 37.2 ??C (99 ??F) Weight: 71.1 kg (156 lb 12 oz) Pertinent Exam Findings at Discharge: Lungs clear to auscultation, no cough; RRR; no dyspnea on exertion Discharge Disposition: Discharge to home or self care Code Status at Discharge: Full Discharge Instructions: Please follow up with your Refractory Bricklayer regarding the management of your asthma symptoms within thenext 3-4 days. Per Asthma Team: -Continue current asthma tx -Continue QVar 40 per PCP but consider QVar 80 if sx persist in 3-4 more weeks -Ibuprofen q 6hours for musculoskeletal discomfort -Asthma Action Plan for home and school-already reviewed with mom and copies given -school accommodations: -No vigorous PE next 2 weeks, then initiate less strenuous activities and gradually increase endurance -Be able to carry water bottle with her at school -Be able to carry albuterol MDI with her at school -Be given extra time to get to classes next several weeks until endurance is back -Asthma Action Plan for school -A note for school was given to the mother. Discharge Medications: Your medication list ASK your doctor about these medications albuterol 2.5 mg /3 mL (0.083 %) nebulizer solution Commonly known as: PROVENTIL,VENTOLIN albuterol HFA 90 mcg/actuation inhaler Commonly known as: PROVENTIL HFA,VENTOLIN HFA,PROAIR HFA buPROPion XL 300 mg 24 hr tablet Commonly known as: WELLBUTRIN XL clonazePAM 1 mg tablet Commonly known as: KlonoPIN divalproex ER 500 mg 24 hr tablet Commonly known as: DEPAKOTE ER predniSONE 20 mg tablet Commonly known as: DELTASONE Take 3 tablets (60 mg total) by mouth daily for 5 days. QUEtiapine 100 mg tablet Commonly known as: SEROquel QVAR REDIHALER 40 mcg/actuation inhaler Generic drug: beclomethasone dipropionate Outpatient Follow-Up: No future appointments. Contact Information for Follow-ups Zak Cho MD Specialty: Pediatrics Relationship: PCP - General [address] [place] [address] [address] [place] [id number] Next Steps: Follow up Instructions: Per this Office they prefer there Families to arrange any appointment needed with there Office. Thank you documented in this encounter Discharge Instructions * Discharge Instructions* Mirtah Nieto MD - 07/20/2018 10:30 AM CDT Summary of Care: Lexie was admitted to the hospital for with an asthma exacerbation likely related the viral illness she had several weeks ago. She was continued on the steroids prescribed on 07/16, given frequent breathing treatments, and also started on Zyrtec for allergy symptoms. She was seen by our asthma team who recommended the following: Instructions: Please follow up with your Refractory Bricklayer regarding the management of your asthma symptoms within thenext 3-4 days. Per Asthma Team: -Continue current asthma treamtent. Zyrtec was also added this admission. -Continue QVar [address] Cho may consider increasing this dose if her symptoms continue for 3-4 more weeks. QVar 80 if symptos persist in 3-4 more weeks -Ibuprofen every 6 hours for musculoskeletal discomfort -Asthma Action Plan for home and school -No vigorous PE next 2 weeks, then initiate less strenuous activities and gradually increase endurance -Carry water bottle with her at school -Carry albuterol MDI with her at school * Attachments The following attachments cannot be sent through Care Everywhere. * Asthma in Children (Discharge Care) ([place]) documented in this encounter Medications at Time [...] needed for wheezing or shortness of breath cetirizine (ZyrTEC) 10 mg tablet Take 1 tablet (10 mg total) by mouth daily. 30 tablet 1 07/21/2018 8 predniSONE (DELTASONE) 20 mg tablet Take 3 tablets (60 mg total) by mouth daily for 5 days. 15 tablet 07/20/2018 8 buPROPion XL (WELLBUTRIN XL) 300 mg [...] 07/08/2018 9 documented as of this encounter Ordered Prescriptions Prescription Sig Dispense Quantity Refills Last Filled Start Date End Date predniSONE (DELTASONE) 20 mg tablet Take 3 tablets (60 mg total) by mouth daily for 5 days. 15 tablet 07/20/2018 8 cetirizine (ZyrTEC) 10 mg tablet Take 1 tablet (10 mg total) by mouth daily. 30 tablet 1 07/21/2018 8 documented in this encounter Discharge Disposition Disposition Code Departure Means Destination Discharge to home or self care documented in this encounter Progress Notes * Kerry Farley MD - 07/20/2018 3:44 PM CDT Pediatric Daily Progress Subjective Chief complaint of cough and wheezing. Interval History: Albuterol spaced to q4. Complained of some chest tightness and coughing over night, however no signs of increased work of breathing. Objective Vitals: Vitals 24 hour ranges: Temp: [36.5 ??C (97.7 ??F)-37.2 ??C (99 ??F)] Pulse: [88-98] Resp: [20] BP: (108-122)/(55-76) CAB Score (12 years and older): [0] I/O last 2 completed shifts: In: 680 [P.O.:680] Out: 800 [Urine:800] I/O this shift: In: 600 [P.O.:600] Out: 400 [Urine:400] Physical Exam: General:alert, well appearing, cooperative and no acute distress Head: Normocephalic, atraumatic Eye:conjunctivae clear, PERRL, EOMI Oropharynx:MMM and posterior pharynx clear Neck: neck supple and no lymphadenopathy Lungs:clear to auscultation bilaterally, normal WOB, good air movement and end expiratory wheezing (after exertion) Heart:regular rate and rhythm, normal S1 and S2 and no murmur, rubs, or gallops Abdomen:soft, non-tender, non-distended and bowel sounds present Extremity:extremities warm and well perfused, no edema and no joint tenderness or swelling Pulses:2+ pulses and symmetric Skin:no rashes or lesions and no jaundice Lab/Radiology/Diagnostic Review: No recent results to review Assessment/Plan Bipolar 1 disorder, Anxiety Assessment & Plan Lexie is on a number of medications for her psychiatric illnesses and managed by a psychiatrist that she should continue during hospitalization. - Continue home Depakote, Klonopin, bupropion, Quetiapine * Mild persistent asthma Assessment & Plan Lexie has a history of symptoms prior to 2 months ago consistent with mild intermittent asthma, requiring her rescue inhaler only a couple times a month, has had minimal night time cough and no night time waking, except for exacerbations with URI symptoms. Over the past 2 years her symptoms have wo rsened, particularly with seasonal changes and in the [...] 7 days (07/16-07/23) - Follow AIMS recs Cosigned by Surinder Steven MD at 07/22/2018 8:48 PM CDT Associated attestation - Surinder Steven MD - 07/22/2018 8:48 PM CDT I have seen and examined the patient on 07/20/18. I agree with the findings and plan of care as documented in the resident's/fellow's note. * Adriana Patino RD - 07/19/2018 2:50 PM CDT Pediatric Nutrition Assessment Lexie Gross Anish 2005 Reason for Assessment: Screened at Nutrition Risk d/t poor appetite and wt loss of 8# Medical History: 12 y.o. female with h/o bipolar, anxiety, depression and asthma who was in her usual state of health until about 3 weeks prior to admission when she developed a fever, cough and sorethroat Past Medical History: Diagnosis Date ??? Anxiety ??? Asthma ??? Bipolar 1 disorder (CMS/HCC) ??? Bipolar 1 disorder (CMS/HCC) ??? Depression ??? Dorsalgia Mid back pain - (Added by TW Conv) ??? Personal history of other diseases of the musculoskeletal system and connective tissue History of neck pain - (Added by TW Conv) ??? Personal history of other diseases of the respiratory system History of asthma - (Added by TW Conv) Social: lives at home with parents; parents at bedside Nutrition Screen What diet do you follow at home?: regular Have You Recently Lost Weight Without Trying?: No Poor Oral Intake for Four or More Days Prior to Admission: Yes (Comment) (decreased appetite) Anthropometrics Weight: 71.1 kg (156 lb 12 oz) Admission Weight : 71.7 kg %tile Weight for Age: 95-97 %tile (z-score: 1.60) Weight Change: -0.60 kg (-1.32 lbs) Height: 162 cm (5' 3.78 ) %tile Height for Age: 50-75 %tile (z-score: 0.26) BMI (Calculated): 27.1 %tile BMI for Age: 95-97 %tile (z-score: 1.64) Growth history: Mom reports 8-10# wt loss in past few weeks. Estimated nutrition needs Calorie DRI Physical Activity Coefficients: Sedentary Weight Used for Calculation (kg): 71.1 kg (156 lb 12 oz) Total Calorie DRI : 1983.99 DRI kcal/kg/day: 27.9 Protein DRI Weight Used for Calculation (kg): 71.1 kg (156 lb 12 oz) Total Protein DRI (REWARDS CONSULTANT/AI): 67.54 Protein DRI grams/kg/day: 0.95 Baseline Fluid Requirement Weight Used for Calculation (kg): 71.1 kg (156 lb 12 oz) Total Baseline Fluid Requirements : 2522 Baseline Fluids grams/kg/day: 35.47 Estimated enteral needs: 25-30 kcal/kg/day Estimated parenteral calorie needs: 20-24 kcal/kg/day Estimated parenteral/enteral protein needs: 0.95-1 grams/kg/day Estimated fluid needs: 35 ml/kg/day Allergies: Patient has no known allergies. Medications: Patient's active medications have been reviewed. Labs: Pertinent Nutrition Labs Reviewed Dietary Orders Start Ordered 07/18/18 2312 Pediatric Diet Regular Diet effective now Question: ([facility]) Diet type Answer: Regular 07/18/18 2311 Care Plan 1 Nutrition Diagnosis 1: Predicted suboptimal energy intake Related to: Weight loss Evidenced by: Wt loss 5% /1m Interventions: Meals and snacks Goals: Adherence to diet/nutritional recommendations Pertinent Nutrition Information: Parents report that Lexie has been eating less over the past ~4 months, which they attribute to her not being able to eat as much d/t breathing difficulty. They state that she did eat breakfast well this morning, so they are hopeful that intake starts to increase once breathing is better controlled. Discussed oral supplements with parents as an option for times when Lexie is unable to take enough food orally. Mom notes that Lexie does like [employer] Protein drinks. BMI remains above 90%, so expect nutrition status to improve as medical status improves. Plan: ?? Continue regular diet po ad jonathan. ?? Weights weekly. ?? Will follow per policy. Adriana Patino, RD [facility] [phone] documented in this encounter H&P Notes * Nik Rogers MD PhD - 07/19/2018 3:13 AM CDT Pediatric History and Physical Subjective Lexie is a 12 y.o. female with chief complaint of 3 weeks cough and wheezing. HPI: Ginny Oconnell is a 12 yo female with h/o bipolar, anxiety, depression and asthma who was in herusual state of health until about 3 weeks prior to admission when she developed a fever, cough and sore throat. Her fever resolved over the next two days, but her sore throat and cough have persistedsince, getting progressively worse over the past week. She has had no nasal congestion or rhinorrhea. She has had a headache, decreased energy, sleeping poorly 2/2 cough, decreased PO fluids and food, and decreased UOP. Mother reports and 8 lbs weight loss and intolerance of walking short distances, which leads to SOB and coughing spells. She was seen by her Refractory Bricklayer several times during the first 2 weeks of illness, completing repeated 3 day courses of 20mg/day prednisone for presumed asthma exacerbation. She was also started on Qvar 40mcg/act BID about 1.5wk ago. Despite these interventions she has continued to need her albuterol inhaler about every 4 hours. Over the past week prior to admission her albuterol requirment has increased, needing treatment more than every 4h at home andswitching to nebulizer from her MDI (used with spacer). She has also noted wheezing, whereas she has only had cough in the past. About 4 days prior to admission she saw her PMD again, who started her on a 5 day course of 40mg prednisone, as well as Augmentin for unclear reasons, but her symptoms persisted and worsened. She wasseen in the [facility] ER on 07/16 for wheezing, where she had a clear chest XR, received duonebs with improvement and was sent home on 5 day course of 60mg prednisone. On the day of admission she had to use her nebulized albuterol 4 times in about 2h. Mother also has stethoscope, noting wheezing, and pulse ox at home that showed sats in low 90's, and dips into 70's. Her asthma had been well controlled with minimal albuterol use, only during URI symptoms, but in the past year her exercise intolerance, evening cough and URI associated symptoms have worsened. She has noticed the most symptoms in the fall and winter months. She endorses some allergy symptoms around dust, but otherwise no pollen or pet dander allergies (2 dogs, 2 cats at home). Her symptoms have been dominated by cough, never having heard wheezing until the past 2 weeks. Her sister was recentlydiagnosed with PNA (atypical) a few weeks ago. In the ED she was coughing and received two Duonebs with improvement. She had an MP swab that ws negative and her SpO2 stayed around mid 90s. Past Medical History: Diagnosis Date ??? Anxiety ??? Asthma ??? Bipolar 1 disorder (CMS/HCC) ??? Bipolar 1 disorder (CMS/HCC) ??? Depression ??? Dorsalgia Mid back pain - (Added by TW Conv) ??? Personal history of other diseases of the musculoskeletal system and connective tissue History of neck pain - (Added by TW Conv) ??? Personal history of other diseases of the respiratory system History of asthma - (Added by TW Conv) History reviewed. No pertinent surgical history. Prescriptions Prior to Admission Medication Sig Dispense Refill Last Dose ??? albuterol (PROVENTIL,VENTOLIN) 2.5 mg /3 mL (0.083 %) nebulizer solution USE 1 VIAL PER NEBULIZER EVERY 4 HOURS NEEDED 0 07/19/2018 at Unknown time ??? amoxicillin-clavulanate (AUGMENTIN) 875-125 mg per tablet 07/19/2018 at Unknown time ??? buPROPion XL (WELLBUTRIN XL) 300 mg 24 hr tablet Take 300 mg by mouth every morning. 1 07/19/2018 at Unknown time ??? clonazePAM (KlonoPIN) 1 mg tablet Take 1 mg by mouth 3 (three) times a day. 07/19/2018 at Unknown time ??? divalproex ER (DEPAKOTE ER) 500 mg 24 hr tablet TAKE 3 TABLETS BY MOUTH AT BEDTIME 0 07/18/2018at Unknown time ??? prednisoLONE (ORAPRED) solution 15 mg/5 mL TAKE 20ML BY MOUTH ONCE DAILY FOR 2 DAYS 0 Past Weekat Unknown time ??? predniSONE (DELTASONE) 20 mg tablet Take 3 tablets (60 mg total) by mouth daily for 5 days. 15 tablet 0 07/19/2018 at Unknown time ??? PROAIR HFA 90 mcg/actuation inhaler INL 2 PFS VIA SPACER Q 4 TO 6 H COU OR WHZ 1 07/19/2018 at Unknown time ??? QUEtiapine (SEROquel) 100 mg tablet TAKE 1 TABLET BY MOUTH EVERYDAY AT BEDTIME 1 07/18/2018 at Unknown time ??? QVAR REDIHALER 40 mcg/actuation inhaler Inhale 2 puffs 2 (two) times a day. 2 07/18/2018 at Unknown time No Known Allergies Social History Substance Use Topics ??? Smoking status: Never Smoker ??? Smokeless tobacco: Never Used ??? Alcohol use No Family History Problem Relation Age of Onset [...] hypertension - (Added by TW Conv) ??? Arthritis Father Family history of arthritis [...] - Relation: Grandparent (Added by TW Conv) There is no immunization history for the selected administration types on file for this patient. Social History: Pediatric Social History: Social History Narrative: Social History Social History Narrative Never a [...] two dogs and two cats. Review of Systems: Constitutional: Fever two weeks ago, decreased appetite, decreased exercise tolerance, 8lbs weight loss Eyes: No eye complaints. Head, Ears, Nose, Throat: Sore throat; No rhinorrhea, congestion, ear ache Respiratory: persistent cough, shortness of breath and tachypnea with exertion Cardiovascular: No chest pain, palpitation, or syncope. Gastroenterology: No abdominal pain, nausea, emesis, or diarrhea. Female: Adequate urine output. No dysuria or hematuria. Menses: menarche at 9yo; previously has had menometrorrhagia treated on Lo Loestrin until recently, during which time she will bleed about every two weeks. Musculoskeletal: No joint pain or swelling. No extremity pain. Skin: No rashes. Heme: No bruising or petechiae. Neuro: headache for 2wk. Some blurry vision. Denies weakness. Psychiatry: no worsening depressive or anxiety symptoms Objective Vitals: Arrival Vitals Temp 07/18/181718 36.6 ??C (97.9 ??F) Pulse 07/18/181718 100 Resp 07/18/181718 20 BP 07/18/181718 125/78 SpO2 07/18/18 171 97 % FiO2 (%) -- CAB Score (12 years and older): 0 Physical Exam: General:alert, well appearing, cooperative and no acute distress Head: Normocephalic, atraumatic Eye:conjunctivae clear, PERRL, EOMI Ear: exam limited by significant cerumen; non erythrethematous TMs Nose:no drainage Oropharynx:MMM, posterior pharynx clear and no cavities Neck: neck supple and no lymphadenopathy Lungs: clear to auscultation bilaterally, normal WOB and good air movement, no retractions; dry cough throughout interview and exam, particularly when asked to take deep breaths. Heart:regular rate and rhythm, normal S1 and S2 and no murmur, rubs, or gallops Abdomen:soft, non-tender, non-distended, bowel sounds present, no masses and no organomegaly :deferred Extremity:extremities warm and well perfused, no edema and no joint tenderness or swelling Pulses:2+ pulses and symmetric Skin:no rashes or lesions and no jaundice Neurologic:alert, face symmetric, PERRL, EOMI, moves all extremities and normal gait Back:spine straight and no CVA tenderness Lab/Radiology/Diagnostic Review: Laboratory review: Lab results in the last 24 hours: Recent Results (from the past 24 hour(s)) Respiratory pathogen multiplex PCR Nasopharyngeal Collection Time: 07/18/18 7:01 PM Result Value Ref Range Report Final Report: Respiratory Pathogen nucleic acids NOT DETECTED (NEGATIVE) Assessment/Plan * Mild persistent asthma Assessment & Plan Lexie has a history of symptoms prior to 2 months ago consistent with mild intermittent asthma, requiring her rescue inhaler only a couple times a month, has had minimal night time cough and no night time waking, except for exacerbations with URI symptoms. Over the past 2 years her symptoms have wo rsened, particularly with seasonal changes and in the [...] - AIMS c/s - Consider steroid taper Bipolar 1 disorder, Anxiety Assessment & Plan Lexie is on a number of medications for her psychiatric illnesses and managed by a psychiatrist that she should continue during hospitalization. - Continue home Depakote, Klonopin, bupropion, Quetiapine Cosigned by Surinder Steven MD at 07/22/2018 8:47 PM CDT Associated attestation - Surinder Steven MD - 07/22/2018 8:47 PM CDT I have seen and examined the patient on 07/19/18. I agree with the findings and plan of care as documented in the resident's/fellow's note. 12 yo with history of asthma (mostly manifest as cough) whopresents with persistent cough with chest tightness and exercise intolerance. Pt's symptoms have been present for 3 weeks. The cough is worse at night. She has also has difficulty breathing and wheezing. She has been treated with oral steroids a few times during this period, but relatively short course of low dose prednisone. She was started on prednisone 60 mg when she presented to the [facility] on 07/16. She hasn't noticed improvement still. Pt has a history of bipolar, anxiety and depression. She has missed 2 weeks of school related to this illness. Overnight, patient remained on albuterol q2 due to persistent cough. Exam: well-appearing, NAD. CTA bilaterally with no wheezing. No cough during my interaction. No respiratory distress. A/P: 12 yo with history of anxiety, bipolar, depression and cough variant asthma here with status asthmaticus. Suspect some contribution of anxiety in patient's perception of symptoms. Continue oral steroids. Space albuterol as tolerated. AIM consult. documented in this encounter Consult Notes * Myrna Tovar NP - 07/19/2018 7:59 PM CDTAssociated Order(s): IP CONSULT TO ASTHMA PNP (AIM CONSULT) AIM Consult: Met with mom to discuss recent issues with asthma. Lexie sutherland. Lexie is a former 29 week preemie who had significant asthma problems as a young child. She however did well for many years after that. About 1-2 years ago she began having more problems with increased need for albuterol, and the last 3 weeks have been the most severe with persistent cough and wheeze, inability to sleep or go toschool, and overall fatigue. Lexie's asthma typically presents as cough, rather than wheeze but isusually responsive to albuterol. This current episode likely is related to post viral inflammation from a viral illness several weeks ago. Her PCP has treated her with several courses of low dose ster oid and started her on Qvar 40. The QVar will likely take several more weeks before having a noticeable effect. Lexie has had a better day today. I feel there may also be an anxiety component aggravating her symptoms. Lexie Has a hx of psychiatric problems including anxiety, panic and bipolar disorder. Lexie has also experienced 2 major deaths in the family since May which has greatly affected her emotionally. Mother reports that she isbeing treated for these problems and sees a counselor regularly. I stressed the importance of continuing the counselling and including relaxation strategies in her management of her asthma. Lexie also is experiencing throat discomfort and chest pain from coughing. I recommended taking a water bottle to school to soothe throat and calm cough. Also she likely has some musculoskeletal irritation and would benefit from ibuprofen. PE: Sleeping during most of my visit. Resp nonlabored. No cough. Lungs clear per auscultation. Impression: 12 y/o with hx of cough variant asthma now with prolonged period of coughing/wheezing likely due to post viral inflammation and aggravated by anxiety. Recommendations: -Continue current asthma tx -Continue QVar 40 per PCP but consider QVar 80 if sx persist in 3-4 more weeks -Ibuprofen q 6hours for musculoskeletal discomfort -AAP for home and school-already reviewed with mom and copies given -school accommodations: -No vigorous PE next 2 weeks, then initiate less strenuous activities and gradually increase endurance -Be able to carry water bottle with her at school -Be able to carry albuterol MDI with her at school -Be given extra time to get to classes next several weeks until endurance is back -AAP for school A note for school was given to the mother. - documented in this encounter Nursing Notes * Ariana Ambriz RN - 07/20/2018 3:45 PM CDT Patient discharged into care of mother. Instructions reviewed and mother agreed to clam picker prescriptions. Patient and mother verbalize understanding of when to call MD/go to ER. documented in this encounter ED Notes * Lenny Benavidez MD - 07/18/2018 6:49 PM CDT HPI Chief Complaint Patient presents with ??? Respiratory Distress 12-year-old F pmh bronchopulmonary dysplasia, asthma, multiple psychiatric diagnoses including per chart bipolar disorder, anxiety, depression presents with coughing and shortness of breath for 3 weeks. Had a fever during the 1st 2 days of symptoms, which then resolved. No rhinorrhea, productive cough, chest pain, abdominal pain, n/v, ear pain, sinus pain. Her typical asthma flare symptoms are increased coughing spells; she has been having worsening coughing fits, dyspnea, chest tightness. Was recently started on QVAR and takes albuterol inhaler regularly. Of note sister recently diagnosed with pneumonia. Pt seen here in [facility] ED 07/16 with identical symptoms, showed negative chest xray, started on higher dose prednisone burst (60mg x 5 days as opposed to her prior 20mg x3 day bursts) and discharged home. Since that time, pt has been using albuterol nebulizer very frequently, reportedly 4 doses in 2 hours today. No change in sx since last visit. Patient's mother reports pt has pulse ox at home and was saturating 90% on RA at home, and she is very concerned. Mom has a stethoscope at home, and reports severe wheezing in b/l lungs and poor airflow. Symptoms (wheezing, breathlessness and cough) worsen with minimal exertion. 07/16 ED visit Peak flow 163cm (green zone: 343-427, yellow: 342-215, red: 214 and below) Patient History There are no active problems to display for this patient. Past Medical History: Diagnosis Date ??? Anxiety ??? Asthma ??? Bipolar 1 disorder (CMS/HCC) ??? Bipolar 1 disorder (CMS/HCC) ??? Depression ??? Dorsalgia Mid back pain - (Added by [employer]) ??? Personal history of other diseases of the musculoskeletal system and connective tissue History of neck pain - (Added by [employer] Conv) ??? Personal history of other diseases of the respiratory system History of asthma - (Added by [employer] Conv) History reviewed. No pertinent surgical history. Family [...] hypertension - (Added by [employer] Conv) ??? Arthritis Father Family history of arthritis [...] - Relation: Grandparent (Added by [employer] Conv) Social History Substance Use Topics ??? Smoking status: Not on file ??? Smokeless tobacco: Not on file ??? Alcohol use Not on file Social History Social History Narrative Never a smoker : (Added by [employer]) No alcohol use : (Added by [employer] Conv) No illicit drug use : (Added by [employer] Conv) Never uses seat belt : (Added by TW Conv) Exercises regularly : (Added by TW Conv) Student : (Added by [employer] Conv) Review of Systems Review of Systems Constitutional: Negative for chills and fever. HENT: Negative for ear pain and sore throat. Eyes: Negative for pain and visual disturbance. Respiratory: Positive for cough, shortness of breath and wheezing. Cardiovascular: Negative for chest pain and palpitations. Gastrointestinal: Negative for abdominal pain and vomiting. Genitourinary: Negative for dysuria and hematuria. Musculoskeletal: Negative for arthralgias and back pain. Skin: Negative for color change and rash. Neurological: Negative for seizures and syncope. All other systems reviewed and are negative. Physical Exam ED Triage Vitals Temp Pulse Resp BP SpO2 07/18/18171807/18/18171807/18/18 17107/18/18 17107/18/18 171 36.6 ??C (97.9 ??F) 100 20 125/78 97 % Temp src Heart Rate Source Patient Position BP Location FiO2 (%) 07/18/18 1719 07/18/18 1920 07/18/18 2253 07/18/18 2309 -- Temporal Apical Sitting Right arm Physical Exam Constitutional: She is oriented to person, place, and time. She appears well- developed and well-nourished. No distress. HENT: Head: Normocephalic and atraumatic. Eyes: Pupils are equal, round, and reactive to light. Conjunctivae and EOM are normal. Neck: Normal range of motion. Neck supple. Cardiovascular: Normal rate and regular rhythm. No murmur heard. Pulmonary/Chest: Effort normal and breath sounds normal. No respiratory distress. She has no wheezes. Dry cough on deep inspiration Abdominal: Soft. There is no tenderness. Musculoskeletal: Normal range of motion. She exhibits no edema. Neurological: She is alert and oriented to person, place, and time. Skin: Skin is warm and dry. Psychiatric: She has a normal mood and affect. Nursing note and vitals reviewed. MDM MDM Number of Diagnoses or Management Options Breathlessness on exertion: Persistent cough for 3 weeks or longer: Diagnosis management comments: 12-year-old F pmh bronchopulmonary dysplasia, asthma, multiple psychiatric diagnoses including per chart bipolar disorder, anxiety, depression presents with coughing and shortness of breath for 3 weeks. Had a fever during the 1st 2 days of symptoms, which then resolved. No rhinorrhea, productive cough, chest pain, abdominal pain, n/v, ear pain, sinus pain. Her typical asthma flare symptoms are increased coughing spells; she has been having worsening coughing fits,dyspnea, chest tightness. Was recently started on QVAR and takes albuterol inhaler regularly. Of note sister recently diagnosed with pneumonia. Pt seen here in [facility] ED 07/16 with identical symptoms, showed negative chest xray, started on higher dose prednisone burst (60mg x 5 days as opposed to her prior 20mg x3 day bursts) and discharged home. Since that time, pt has been using albuterol nebulizer very frequently, reportedly 4 doses in 2 hours today. No change in sx since last visit. Patient's mother reports pt has pulse ox at home and was saturating 90% on RA at home, and she is very concerned. Mom has a stethoscope at home, and reports severe wheezing in b/l lungs and poor airflow. Symptoms (wheezing, breathlessness and cough) worsen with minimal exertion. 07/16 ED visit Peak flow 163cm (green zone: 343-427, yellow: 342-215, red: 214 and below) Physical exam reveals no respiratory distress, no audible wheezing but good airflow b/l lungs but frequent dry cough worsened with deep inspiration. DDx: viral infection, asthma exacerbation, less likely pneumonia as negative CXR on 07/16 and no fever, less likely pertussis, less likely bronchitis Plan: eleni, multiplex, possible admission as pt has poorly tolerated discharge earlier this week Amount and/or Complexity of Data Reviewed Review and summarize past medical records: yes ED Course as of Jul 18 2319 Time: 07/18 2055 Value: Report: Final Report: Respiratory Pathogen nucleic acids NOT DETECTED (NEGATIVE) Comment: (Reviewed) By: Lenny Benavidez MD Time: 07/18 2133 Comment: Pt walked multiple laps around ED to assess exercise tolerance. Pt developed new/worseningwheezing, tachypnea, and fatigue a/w worsening cough. Will plan on admission for further symptom control. By: Lenny Benavidez MD Persistent cough for 3 weeks or longer Breathlessness on exertion Lenny Benavidez MD Resident 07/18/18 6234 Cosigned by Feng Chavez MD at 07/18/2018 11:47 PM CDT Associated attestation - Feng Chavez MD - 07/18/2018 11:47 PM CDT I have seen and examined the patient on 07/18/2018 . I agree with the findings and plan of care as documented in the resident's note. * Hailee Hess RN - 07/18/2018 6:11 PM CDT Bed: ED1-09 Expected date: 07/18/18 Expected time: Means of arrival: Car Comments: Hailee Hess RN 07/18/18 1811 * Charity Altamirano, JERRY - 07/18/2018 5:16 PM CDT Pt with cough and wheezing for past 2 weeks, has been getting neb treatments but not helping * Moo Saavedra EMT - 07/18/2018 4:03 PM CDT 12 y/o coming in with complaints of resp distress. Pt has hx of asthma. Coming pmd office. Moo Saavedra, EMT 07/18/18 1604 documented in this encounter Miscellaneous Notes * Assessment & Plan Note - Kerry Farley MD - 07/20/2018 3:41 PM CDT Associated Problem(s): Bipolar 1 disorder, Anxiety Lexie is on a number of medications for her psychiatric illnesses and managed by a psychiatrist that she should continue during hospitalization. - Continue home Depakote, Klonopin, bupropion, Quetiapine * Assessment & Plan Note - Kerry Farley MD - 07/20/2018 3:38 PM CDT Associated Problem(s): Mild persistent asthma Lexie has a history of symptoms prior to 2 months ago consistent with mild intermittent asthma, requiring her rescue inhaler only a couple times a month, has had minimal night time cough and no night time waking, except for exacerbations with URI symptoms. Over the past 2 years her symptoms have wo rsened, particularly with seasonal changes and in the [...] 7 days (07/16-07/23) - Follow AIMS recs * Subjective & Objective - Kerry Farley MD - 07/20/2018 3:22 PM CDT Pediatric Daily Progress Subjective Chief complaint of cough and wheezing. Interval History: Albuterol spaced to q4. Complained of some chest tightness and coughing over night, however no signs of increased work of breathing. Objective Vitals: Vitals 24 hour ranges: Temp: [36.5 ??C (97.7 ??F)-37.2 ??C (99 ??F)] Pulse: [88-98] Resp: [20] BP: (108-122)/(55-76) CAB Score (12 years and older): [0] I/O last 2 completed shifts: In: 680 [P.O.:680] Out: 800 [Urine:800] I/O this shift: In: 600 [P.O.:600] Out: 400 [Urine:400] Physical Exam: General:alert, well appearing, cooperative and no acute distress Head: Normocephalic, atraumatic Eye:conjunctivae clear, PERRL, EOMI Oropharynx:MMM and posterior pharynx clear Neck: neck supple and no lymphadenopathy Lungs:clear to auscultation bilaterally, normal WOB, good air movement and end expiratory wheezing (after exertion) Heart:regular rate and rhythm, normal S1 and S2 and no murmur, rubs, or gallops Abdomen:soft, non-tender, non-distended and bowel sounds present Extremity:extremities warm and well perfused, no edema and no joint tenderness or swelling Pulses:2+ pulses and symmetric Skin:no rashes or lesions and no jaundice Lab/Radiology/Diagnostic Review: No recent results to review * Plan of Care - Ariana Ambriz RN - 07/20/2018 1:02 PM CDT Goals: pt will ambulate after each albuterol dose Summary: Activity: ??? Ability to perform activities at highest level will improve Progressing ??? Imbalance in normal sleep/wake cycle will improve Progressing Coping: ??? Level of anxiety will decrease Progressing Health Behavior: ??? Understanding of discharge needs will improve Progressing Lack of Knowledge: ??? Knowledge of disease or condition will improve Progressing ??? Knowledge of the prescribed therapeutic regimen will improve Progressing ??? Identification of ways to alter the environment to positively affect health status will improveProgressing * Plan of Care - Papa Boyle RN - 07/19/2018 11:31 PM CDT Goals: Pt remain stable on Q3 albuterol Activity: ??? Ability to perform activities at highest level will improve Progressing ??? Imbalance in normal sleep/wake cycle will improve Progressing Coping: ??? Level of anxiety will decrease Progressing Health Behavior: ??? Understanding of discharge needs will improve Progressing Lack of Knowledge: ??? Knowledge of disease or condition will improve Progressing ??? Knowledge of the prescribed therapeutic regimen will improve Progressing ??? Identification of ways to alter the environment to positively affect health status will improveProgressing * Plan of Care - Ariana Ambriz RN - 07/19/2018 8:53 AM CDT Goals: Patient will tolerate being weaned from q2 hr albuterol and demonstrate understanding of their asthma action plan Summary: Activity: ??? Ability to perform activities at highest level will improve Progressing ??? Imbalance in normal sleep/wake cycle will improve Progressing Coping: ??? Level of anxiety will decrease Progressing Health Behavior: ??? Understanding of discharge needs will improve Progressing Lack of Knowledge: ??? Knowledge of disease or condition will improve Progressing ??? Knowledge of the prescribed therapeutic regimen will improve Progressing ??? Identification of ways to alter the environment to positively affect health status will improveProgressing * Plan of Care - Papa Boyel RN - 07/19/2018 3:39 AM CDT Goals: Pt will be stable on q2 albuterol treatments Activity: ??? Ability to perform activities at highest level will improve Progressing ??? Imbalance in normal sleep/wake cycle will improve Progressing Coping: ??? Level of anxiety will decrease Progressing Health Behavior: ??? Understanding of discharge needs will improve Progressing Lack of Knowledge: ??? Knowledge of disease or condition will improve Progressing ??? Knowledge of the prescribed therapeutic regimen will improve Progressing ??? Identification of ways to alter the environment to positively affect health status will improveProgressing * Assessment & Plan Note - Nik Rogers MD PhD - 07/19/2018 3:11 AM CDT Associated Problem(s): Bipolar 1 disorder, Anxiety Lexie is on a number of medications for her psychiatric illnesses and managed by a psychiatrist that she should continue during hospitalization. - Continue home Depakote, Klonopin, bupropion, Quetiapine * Assessment & Plan Note - Nik Rogers MD PhD - 07/19/2018 2:56 AM CDT Associated Problem(s): Mild persistent asthma Lexie has a history of symptoms prior to 2 months ago consistent with mild intermittent asthma, requiring her rescue inhaler only a couple times a month, has had minimal night time cough and no night time waking, except for exacerbations with URI symptoms. Over the past 2 years her symptoms have wo rsened, particularly with seasonal changes and in the [...] - AIMS c/s - Consider steroid taper * Subjective & Objective - Nik Rogers MD PhD - 07/19/2018 1:34 AM CDT Pediatric History and Physical Subjective Lexie is a 12 y.o. female with chief complaint of 3 weeks cough and wheezing. HPI: Ginny Oconnell is a 12 yo female with h/o bipolar, anxiety, depression and asthma who was in herusual state of health until about 3 weeks prior to admission when she developed a fever, cough and sore throat. Her fever resolved over the next two days, but her sore throat and cough have persistedsince, getting progressively worse over the past week. She has had no nasal congestion or rhinorrhea. She has had a headache, decreased energy, sleeping poorly 2/2 cough, decreased PO fluids and food, and decreased UOP. Mother reports and 8 lbs weight loss and intolerance of walking short distances, which leads to SOB and coughing spells. She was seen by her Refractory Bricklayer several times during the first 2 weeks of illness, completing repeated 3 day courses of 20mg/day prednisone for presumed asthma exacerbation. She was also started on Qvar 40mcg/act BID about 1.5wk ago. Despite these interventions she has continued to need her albuterol inhaler about every 4 hours. Over the past week prior to admission her albuterol requirment has increased, needing treatment more than every 4h at home andswitching to nebulizer from her MDI (used with spacer). She has also noted wheezing, whereas she has only had cough in the past. About 4 days prior to admission she saw her PMD again, who started her on a 5 day course of 40mg prednisone, as well as Augmentin for unclear reasons, but her symptoms persisted and worsened. She wasseen in the [facility] ER on 07/16 for wheezing, where she had a clear chest XR, received duonebs with improvement and was sent home on 5 day course of 60mg prednisone. On the day of admission she had to use her nebulized albuterol 4 times in about 2h. Mother also has stethoscope, noting wheezing, and pulse ox at home that showed sats in low 90's, and dips into 70's. Her asthma had been well controlled with minimal albuterol use, only during URI symptoms, but in the past year her exercise intolerance, evening cough and URI associated symptoms have worsened. She has noticed the most symptoms in the fall and winter months. She endorses some allergy symptoms around dust, but otherwise no pollen or pet dander allergies (2 dogs, 2 cats at home). Her symptoms have been dominated by cough, never having heard wheezing until the past 2 weeks. Her sister was recentlydiagnosed with PNA (atypical) a few weeks ago. In the ED she was coughing and received two Duonebs with improvement. She had an MP swab that ws negative and her SpO2 stayed around mid 90s. Past Medical History: Diagnosis Date ??? Anxiety ??? Asthma ??? Bipolar 1 disorder (CMS/HCC) ??? Bipolar 1 disorder (CMS/HCC) ??? Depression ??? Dorsalgia Mid back pain - (Added by TW Conv) ??? Personal history of other diseases of the musculoskeletal system and connective tissue History of neck pain - (Added by TW Conv) ??? Personal history of other diseases of the respiratory system History of asthma - (Added by TW Conv) History reviewed. No pertinent surgical history. Prescriptions Prior to Admission Medication Sig Dispense Refill Last Dose ??? albuterol (PROVENTIL,VENTOLIN) 2.5 mg /3 mL (0.083 %) nebulizer solution USE 1 VIAL PER NEBULIZER EVERY 4 HOURS NEEDED 0 07/19/2018 at Unknown time ??? amoxicillin-clavulanate (AUGMENTIN) 875-125 mg per tablet 07/19/2018 at Unknown time ??? buPROPion XL (WELLBUTRIN XL) 300 mg 24 hr tablet Take 300 mg by mouth every morning. 1 07/19/2018 at Unknown time ??? clonazePAM (KlonoPIN) 1 mg tablet Take 1 mg by mouth 3 (three) times a day. 07/19/2018 at Unknown time ??? divalproex ER (DEPAKOTE ER) 500 mg 24 hr tablet TAKE 3 TABLETS BY MOUTH AT BEDTIME 0 07/18/2018at Unknown time ??? prednisoLONE (ORAPRED) solution 15 mg/5 mL TAKE 20ML BY MOUTH ONCE DAILY FOR 2 DAYS 0 Past Weekat Unknown time ??? predniSONE (DELTASONE) 20 mg tablet Take 3 tablets (60 mg total) by mouth daily for 5 days. 15 tablet 0 07/19/2018 at Unknown time ??? PROAIR HFA 90 mcg/actuation inhaler INL 2 PFS VIA SPACER Q 4 TO 6 H COU OR WHZ 1 07/19/2018 at Unknown time ??? QUEtiapine (SEROquel) 100 mg tablet TAKE 1 TABLET BY MOUTH EVERYDAY AT BEDTIME 1 07/18/2018 at Unknown time ??? QVAR REDIHALER 40 mcg/actuation inhaler Inhale 2 puffs 2 (two) times a day. 2 07/18/2018 at Unknown time No Known Allergies Social History Substance Use Topics ??? Smoking status: Never Smoker ??? Smokeless tobacco: Never Used ??? Alcohol use No Family History Problem Relation Age of Onset [...] hypertension - (Added by TW Conv) ??? Arthritis Father Family history of arthritis [...] - Relation: Grandparent (Added by TW Conv) There is no immunization history for the selected administration types on file for this patient. Social History: Pediatric Social History: Social History Narrative: Social History Social History Narrative Never a smoker : (Added by TW Conv) No alcohol use : (Added by [employer] Conv) No illicit drug use : (Added by [employer] Conv) Student : (Added by [employer] Conv) Lexie is currently in the 8th [...] two dogs and two cats. Review of Systems: Constitutional: Fever two weeks ago, decreased appetite, decreased exercise tolerance, 8lbs weight loss Eyes: No eye complaints. Head, Ears, Nose, Throat: Sore throat; No rhinorrhea, congestion, ear ache Respiratory: persistent cough, shortness of breath and tachypnea with exertion Cardiovascular: No chest pain, palpitation, or syncope. Gastroenterology: No abdominal pain, nausea, emesis, or diarrhea. Female: Adequate urine output. No dysuria or hematuria. Menses: menarche at 9yo; previously has had menometrorrhagia treated on Lo Loestrin until recently, during which time she will bleed about every two weeks. Musculoskeletal: No joint pain or swelling. No extremity pain. Skin: No rashes. Heme: No bruising or petechiae. Neuro: headache for 2wk. Some blurry vision. Denies weakness. Psychiatry: no worsening depressive or anxiety symptoms Objective Vitals: Arrival Vitals Temp 07/18/181718 36.6 ??C (97.9 ??F) Pulse 07/18/181718 100 Resp 07/18/181718 20 BP 07/18/181718 125/78 SpO2 07/18/181716 97 % FiO2 (%) -- CAB Score (12 years and older): 0 Physical Exam: General:alert, well appearing, cooperative and no acute distress Head: Normocephalic, atraumatic Eye:conjunctivae clear, PERRL, EOMI Ear: exam limited by significant cerumen; non erythrethematous TMs Nose:no drainage Oropharynx:MMM, posterior pharynx clear and no cavities Neck: neck supple and no lymphadenopathy Lungs: clear to auscultation bilaterally, normal WOB and good air movement, no retractions; dry cough throughout interview and exam, particularly when asked to take deep breaths. Heart:regular rate and rhythm, normal S1 and S2 and no murmur, rubs, or gallops Abdomen:soft, non-tender, non-distended, bowel sounds present, no masses and no organomegaly :deferred Extremity:extremities warm and well perfused, no edema and no joint tenderness or swelling Pulses:2+ pulses and symmetric Skin:no rashes or lesions and no jaundice Neurologic:alert, face symmetric, PERRL, EOMI, moves all extremities and normal gait Back:spine straight and no CVA tenderness Lab/Radiology/Diagnostic Review: Laboratory review: Lab results in the last 24 hours: Recent Results (from the past 24 hour(s)) Respiratory pathogen multiplex PCR Nasopharyngeal Collection Time: 07/18/18 7:01 PM Result Value Ref Range Report Final Report: Respiratory Pathogen nucleic acids NOT DETECTED (NEGATIVE) documented in this encounter Plan of Treatment Not on file documented as of this encounter Procedures Procedure Name Priority Date/Time Associated Diagnosis Comments RESPIRATORY PATHOGEN PANEL STAT 07/18/2018 7:01 PM CDT documented in this encounter Results * Respiratory pathogen multiplex PCR Nasopharyngeal (07/18/2018 7:01 PM CDT) Report Final Report: Respiratory Pathogen nucleic acids NOT DETECTED (NEGATIVE) [facility] Nasopharyngeal 07/18/2018 7: 01 PM CDT 07/18/2018 7:03 PM CDT [facility] - 07/18/2018 8:28 PM CDT The SCL FilmArray Respiratory Panel (RP) assay is a multiplexed nucleic acid test capable of simultaneous qualitative detection and identification of multiple respiratory viral and bacterial nucleic acids. The following bacteria, viruses and virus subtypes can be identified using the FilmArray RP assay: Bordetella pertussis, Chlamydophila pneumoniae, Mycoplasma pneumoniae, Adenovirus, Coronavirus HKU1, Coronavirus NL63, Coronavirus 229E, Coronavirus OC43, Influenza A, Influenza A subtype H1, Influenza A subtype H3, Influenza A subtype 2009 H1, Influenza B, Metapneumovirus, Parainfluenza 1, Parainfluenza 2, Parainfluenza 3, Parainfluenza 4, RSV, Rhinovirus/Enterovirus. The FilmArray RP assay cannot reliably differentiate rhinovirus and enterovirus. Coronavirus OC43 may cross-react with some isolates of Coronavirus HKU1. A dual positive result may be due to cross-reactivity or may indicate a co-infection. The detection and identification of specific viral and bacterial nucleic acids from individuals exhibiting signs and symptoms of a respiratory infection aids in the diagnosis of respiratory infection if used in conjunction with other clinical and epidemiological information. The results of this test should not be used as the sole basis for diagnosis, treatment, or other management decisions. Negative results in the setting of a respiratory illness may be due to infection with pathogens that are not detected by this test. Positive results do not rule out infection/co- infection with other organisms. The agent(s) detected by the FilmArray RP may not be the definite cause of disease. Additional testing (lab, imaging, etc.) may be necessary when evaluating a patient with possible respiratory tract infection. Current interpretive data was last revised on 2017. us Lenny Benavidez MD LAB MICROBIOLOGY - GENERAL ORDERABLES Final Result [facility] [place] [address] documented in this encounter Visit Diagnoses Diagnosis Mild persistent asthma- Primary Unspecified asthma Persistent cough for 3 weeks or longer Breathlessness on exertion Other dyspnea and respiratory abnormality Anxiety Anxiety state, unspecified Depression Depressive disorder, not elsewhere classified Bipolar 1 disorder, Anxiety documented in this encounter Administered Medications Inactive Administered Medications - up to 3 most recent administrations Medication Order MAR Action Action Date Dose Rate Site albuterol (PROVENTIL,VENTOLIN) 2.5 mg/0.5 mL nebulizer solution 2.5 mg 2.5 mg, nebulization, Every 2 hours (respiratory therapist assistant), First dose on Sun07/19/18 at 0000, As needed if administering albuterol with ipratropium per nebulizer or unable to give MDI Given 07/19/2018 10:26 AM CDT 2.5 mg Given 07/19/2018 8:21 AM CDT 2.5 mg Given 07/19/2018 6:25 AM CDT 2.5 mg albuterol (PROVENTIL,VENTOLIN) 2.5 mg/0.5 mL nebulizer solution 2.5 mg 2.5 mg, nebulization, Every 3 hours (respiratory therapist assistant), First dose (after last modification) on Sun07/19/18 at 1300, As needed if administering albuterol with ipratropium per nebulizer or unable to give MDI Given 07/19/2018 1:42 PM CDT 2.5 mg albuterol (PROVENTIL,VENTOLIN) 2.5 mg/0.5 mL nebulizer solution 2.5 mg 2.5 mg, nebulization, Every 4 hours (respiratory therapist assistant), First dose (after last modification) on [facility] 07/20/18 at 0900, As needed if administering albuterol with ipratropium per nebulizer or unable to give MDI albuterol (PROVENTIL,VENTOLIN) 2.5 mg/0.5 mL nebulizer solution 5 mg 5 mg, nebulization, Every 15 min, First dose on Mami 07/18/18 at 1850, For 2 doses, Indications: Asthma ExacerbationIndications:Asthma Exacerbation Given 07/18/2018 7:20 PM CDT 5 mg Given 07/18/2018 6:56 PM CDT 5 mg albuterol HFA (PROVENTIL HFA,VENTOLIN HFA,PROAIR HFA) 90 mcg/actuation inhaler 4 puff 4 puff, inhalation, Every 3 hours (respiratory therapist assistant), First dose (after last modification) on Sun07/19/18 at 1300 Given 07/20/2018 2:03 AM CDT 4 puffs Given 07/19/2018 11:07 PM CDT 4 puffs Given 07/19/2018 8:05 PM CDT 4 puffs albuterol HFA (PROVENTIL HFA,VENTOLIN HFA,PROAIR HFA) 90 mcg/actuation inhaler 4 puff 4 puff, inhalation, Every 4 hours (respiratory therapist assistant), First dose (after last modification) on Sun07/20/18 at 0900 Given 07/20/2018 1:25 PM CDT 4 puffs Given 07/20/2018 9:43 AM CDT 4 puffs Given 07/20/2018 5:55 AM CDT 4 puffs buPROPion XL (WELLBUTRIN XL) 24 hour tablet 300 mg 300 mg, oral, Daily, First dose on Sun07/19/18 at 0900, Do not crush, chew, cut, dissolve, open or otherwise manipulate tablet/capsule., Drug Name: Bupropion XL 24h tablet, Form: tablet, Length of Therapy: Indefinite, How soon needed? (normally 72 hrs needed to procure): 0-24 hrs, Reason for Non-Formulary: XL not available on formulary Given 07/20/2018 9:52 AM CDT 300 mg Given 07/19/2018 8:43 AM CDT 300 mg cetirizine (ZyrTEC) tablet 10 mg 10 mg, oral, Daily, First dose on Sun07/19/18 at 0900 Given 07/20/2018 9:51 AM CDT 10 mg Given 07/19/2018 8:44 AM CDT 10 mg clonazePAM (KlonoPIN) tablet 1 mg 1 mg, oral, 3 times daily, First dose on Sun07/19/18 at 0900 Given 07/20/2018 9:51 AM CDT 1 mg Given 07/19/2018 9:28 PM CDT 1 mg Given 07/19/2018 3:52 PM CDT 1 mg clonazePAM (KlonoPIN) tablet 1 mg 1 mg, oral, Once, On Sun07/19/18 at 0200, For 1 dose Given 07/19/2018 2:57 AM CDT 1 mg divalproex ER (DEPAKOTE ER) 24 hour tablet 1,500 mg 1,500 mg, oral, Once, On Sun07/19/18 at 0200, For 1 dose Given 07/19/2018 2:58 AM CDT 1,500 mg divalproex ER (DEPAKOTE ER) 24 hour tablet 1,500 mg 1,500 mg, oral, Nightly, First dose (after last modification) on Sun07/19/18 at 2100 Given 07/19/2018 9:28 PM CDT 1,500 mg influenza quadrivalent [id number] (FLULAVAL,FLUARIX) 60 mcg (15 mcg x 4)/0.5 mL vaccine (STANDARD age 6 months and up) 0.5 mL 0.5 mL, intramuscular, During hospitalization, immunization, Starting on Sun07/19/18 at 0109, For 1 dose Given 07/19/2018 3:52 PM CDT 0.5 mL L eft Deltoid ipratropium (ATROVENT) 0.02 % nebulizer solution 0.5 mg 0.5 mg, nebulization, Every 15 min, First dose on Sun07/18/18 at 1850, For 2 doses, Indications: Asthma ExacerbationIndications:Asthma Exacerbation Given 07/18/2018 7:20 PM CDT 0.5 mg Given 07/18/2018 6:56 PM CDT 0.5 mg ipratropium (ATROVENT) 0.02 % nebulizer solution 0.5 mg 0.5 mg, nebulization, Every 6 hours (respiratory therapist assistant), First dose on Sun07/18/18 at 2345 Given 07/19/2018 1:42 PM CDT 0. 5 mg Given 07/19/2018 6:25 AM CDT 0.5 mg Given 07/19/2018 12:46 AM CDT 0.5 mg predniSONE (DELTASONE) tablet 60 mg 60 mg, oral, Daily, First dose on Sun07/19/18 at 0900, AM dosing preferred. Maximum dose = 60 mg Given 07/20/2018 9:51 AM CDT 60 mg Given 07/19/2018 8:43 AM CDT 60 mg QUEtiapine (SEROquel) tablet 100 mg 100 mg, oral, Nightly, First dose on Sun07/19/18 at 2100 Given 07/19/2018 9:28 PM CDT 100 mg QUEtiapine (SEROquel) tablet 100 mg 100 mg, oral, Once, On Sun07/19/18 at 0200, For 1 dose Given 07/19/2018 2:57 AM CDT 100 mg documented in this encounter Discontinued Medications Medication Sig Discontinue Reason Start Date End Da te albuterol (PROVENTIL,VENTOLIN) 2.5 mg /3 mL (0.083 %) nebulizer solution USE 1 VIAL PER NEBULIZER EVERY 4 HOURS NEEDED Error 07/08/2018 07/19/2018 amoxicillin-clavulanate (AUGMENTIN) 875-125 mg per tablet Error 07/15/2018 07/19/2018 prednisoLONE (ORAPRED) solution 15 mg/5 mL TAKE 20ML BY MOUTH ONCE DAILY FOR 2 DAYS Error 07/10/2018 07/19/2018 PROAIR HFA 90 mcg/actuation inhaler INL 2 PFS VIA SPACER Q 4 TO 6 H COU OR WHZ Error 07/05/2018 07/19/2018 predniSONE (DELTASONE) 20 mg tablet Take 3 tablets (60 mg total) by mouth daily for 5 days. 07/16/2018 07/20/2018 documented as of this encounter Historical Medications * This list may reflect changes made after this encounter. albuterol HFA (PROVENTIL HFA,VENTOLIN HFA,PROAIR HFA) 90 mcg/actuation inhaler Inhale 2 puffs every 6 (six) hours as needed for wheezing or shortness of breath albuterol (PROVENTIL,OLIVER ANDRY) 2.5 mg /3 mL [...] id it helps with her anxiety. 3 added in this encounter Active and Recently Administered Medications Times are shown in CDT. Scheduled Medication Order 07/18/2018 07/19/2018 07/20/2018 albuterol (PROVENTIL,VENTOLIN) 2.5 mg/0.5 mL nebulizer solution 2.5 mg (CANCELED) 2.5 mg, nebulization, Every 2 hours (respiratory therapist assistant), First dose on Sun07/19/18 at 0000, As needed if administering albuterol with ipratropium per nebulizer or unable to give MDI 0046 (Given - Provider: Bridgette Petty RRT)0243 (Given - Provider: Bridgette Petty RRT)0441 (Given - Provider: Bridgette Petty RRT)0625 (Given - Provider: Bridgette Petty RRT)0821 (Given - Provider: Gracy Gomez RRT)1026 (Given - Provider: Whit Velasquez) albuterol (PROVENTIL,VENTOLIN) 2.5 mg/0.5 mL nebulizer solution 2.5 mg (CANCELED) 2.5 mg, nebulization, Every 3 hours (respiratory therapist assistant), First dose (after last modification) on Sun07/19/18 at 1300, As needed if administering albuterol with ipratropium per nebulizer or unable to give MDI 1342 (Given - Provider: rGacy Gomez RRT)1700 (See Alternative - Provider: Gracy Gomez RRT)2005 (See Alternative - Provider: Tayler Kerns RRT)2307 (See Alternative - Provider: aTyler Kerns RRT) 0203 (See Alternative - Provider: Tayler Kerns RRT)0500 (Not Given - Provider: Tayler Kerns RRT - Reason: See Provider Order - Comment: spaced to Q4) albuterol (PROVENTIL,VENTOLIN) 2.5 mg/0.5 mL nebulizer solution 2.5 mg(Linked Group 1) 2.5 mg, nebulization, Every 4 hours (respiratory therapist assistant), First dose (after last modification) on Sun07/20/18 at 0900, As needed if administering albuterol with ipratropium per nebulizer or unable to give MDI 0555 (See Alternativ e - Provider: Tayler Kerns RRT)0943 (See Alternative - Provider: Gracy Gomez RRT)1325 (See Alternative - Provider: Gracy Gomez RRT) albuterol (PROVENTIL,VENTOLIN) 2.5 mg/0.5 mL nebulizer solution 5 mg (COMPLETED)(Linked Group 2) 5 mg, nebulization, Every 15 min, First dose on Sun07/18/18 at 1850, For 2 doses, Indications: Asthma Exacerbation 1855 (Given - Provider: Antonio Bradley, JERRY)1920 (Given - Provider: Jessi Guillen RN) albuterol HFA (PROVENTIL HFA,VENTOLIN HFA,PROAIR HFA) 90 mcg/actuation inhaler 4 puff (CANCELED) 4 puff, inhalation, Every 3 hours (respiratory therapist assistant), First dose (after last modification) on Sun07/19/18 at 1300 1342 (See Alternative - Provider: Gracy Gomez RRT)1700 (Given - Provider: Gracy Gomez RRT)2005 (Given - Provider: Tayler Kerns RRT)2307 (Given - Provider: Tayler Kerns RRT) 0203 (Given - Provider: Tayler Kerns RRT)0500 (See Alternative - Provider: Tayler Kerns RRT) albuterol HFA (PROVENTIL HFA,VENTOLIN HFA,PROAIR HFA) 90 mcg/actuation inhaler 4 puff(Linked Group 1) 4 puff, inhalation, Every 4 hours (respiratory therapist assistant), First dose (after last modification) on Sun07/20/18 at 0900 0555 (Given - Provider: Tayler Kerns RRT)0943 (Given - Provider: Gracy Gomez RRT)1325 (Given - Provider: Gracy Gomez RRT) buPROPion XL (WELLBUTRIN XL) 24 hour tablet 300 mg 300 mg, oral, Daily, First dose on Sun07/19/18 at 0900, Do not crush, chew, cut, dissolve, open or otherwise manipulate tablet/capsule., Drug Name: Bupropion XL 24h tablet, Form: tablet, Length of Therapy: Indefinite, How soon needed? (normally 72 hrs needed to procure): 0-24 hrs, Reason for Non-Formulary: XL not available on formulary 0843 (Given - Provider: Ariana Ambriz RN) 0952 (Given - Provider: Ariana Ambriz, JERRY) cetirizine (ZyrTEC) tablet 10 mg 10 mg, oral, Daily, First dose on Sun07/19/18 at 0900 0844 (Given - Provider: Ariana Ambriz RN) 0951 (Given - Provider: Ariana Ambriz RN) clonazePAM (KlonoPIN) tablet 1 mg 1 mg, oral, 3 times daily, First dose on Sun07/19/18 at 0900 0346 (Not Given - Provider: Papa Boyle RN - Reason: Other)0843 (Given - Provider: Ariana Ambriz RN)1552 (Given - Provider: Ariana Ambriz RN)2128 (Given - Provider: Papa Boyle RN) 0951 (Given - Provider: Ariana Ambriz RN)1600 (Due) clonazePAM (KlonoPIN) tablet 1 mg (COMPLETED) 1 mg, oral, Once, On Sun07/19/18 at 0200, For 1 dose 0257 (Given - Provider: Papa Boyle RN) divalproex ER (DEPAKOTE ER) 24 hour tablet 1,500 mg (COMPLETED) 1,500 mg, oral, Once, On Sun07/19/18 at 0200, For 1 dose 0258 (Given - Provider: Papa Boyle RN) divalproex ER (DEPAKOTE ER) 24 hour tablet 1,500 mg 1,500 mg, oral, Nightly, First dose (after last modification) on Sun07/19/18 at 2100 2128 (Given - Provider: Papa Boyle RN) ipratropium (ATROVENT) 0.02 % nebulizer solution 0.5 mg (COMPLETED)(Linked Group 2) 0.5 mg, nebulization, Every 15 min, First dose on Sun07/18/18 at 1850, For 2 doses, Indications: Asthma Exacerbation 1855 (Given - Provider: Antonio Bradley, JERRY)192 (Given - Provider: Jessi Guillen RN) ipratropium (ATROVENT) 0.02 % nebulizer solution 0.5 mg (CANCELED) 0.5 mg, nebulization, Every 6 hours (respiratory therapist assistant), First dose on Mami 07/18/18 at 2345 0046 (Given - Provider: Bridgette Petty, ZIGGY)0625 (Given - Provider: Bridgette Petty RRT)1342 (Given - Provider: Gracy Gomez, BOLT MACHINE OPERATOR) predniSONE (DELTASONE) tablet 60 mg 60 mg, oral, Daily, First dose on Sun07/19/18 at 0900, AM dosing preferred. Maximum dose = 60 mg 0843 (Given - Provider: Ariana Ambriz RN) 0951 (Given - Provider: Ariana Ambriz RN) QUEtiapine (SEROquel) tablet 100 mg 100 mg, oral, Nightly, First dose on Sun07/19/18 at 2100 0346 (Not Given - Provider: Papa Boyle RN - Reason: Other)2128 (Given - Provider: Papa Boyle RN) QUEtiapine (SEROquel) tablet 100 mg (COMPLETED) 100 mg, oral, Once, On Sun07/19/18 at 0200, For 1 dose 0257 (Given - Provider: Papa Boyle RN) PRN Medication Order 07/18/2018 07/19/2018 07/20/2018 influenza quadrivalent [id number] (FLULAVAL,FLUARIX) 60 mcg (15 mcg x 4)/0.5 mL vaccine (STANDARD age 6 months and up) 0.5 mL (COMPLETED) 0.5 mL, intramuscular, During hospitalization, immunization, Starting on Sun07/19/18 at 0109, For 1 dose 1552 (Given - Provider: Ariana Ambriz RN) Linked Groups Order Group 1: albuterol HFA (PROVENTIL HFA,VENTOLIN HFA,PROAIR HFA) 90 mcg/actuation inhaler 4 puffJump to med 4 puff, inhalation, Every 4 hours (respiratory therapist assistant), First dose (after last modification) on 07/20/18 at 0900 Or albuterol (PROVENTIL,VENTOLIN) 2.5 mg/0.5 mL nebulizer solution 2.5 mgJump to med 2.5 mg, nebulization, Every 4 hours (respiratory therapist assistant), First dose (after last modification) on 07/20/18 at 0900, As needed if administering albuterol with ipratropium per nebulizer or unable to give MDI Group 2: albuterol (PROVENTIL,VENTOLIN) 2.5 mg/0.5 mL nebulizer solution 5 mg (COMPLETED)Jump to med 5 mg, nebulization, Every 15 min, First dose on Mami 07/18/18 at 1850, For 2 doses, Indications: Asthma Exacerbation And ipratropium (ATROVENT) 0.02 % nebulizer solution 0.5 mg (COMPLETED)Jump to med 0.5 mg, nebulization, Every 15 min, First dose on Mami 07/18/18 at 1850, For 2 doses, Indications: Asthma Exacerbation documented in this encounter Orders Medications Ordered That Markel ht Not Have Been Administered Count Last Ordered Date First Ordered Date albuterol (PROVENTIL,VENTOLI N) 2.5 mg/0.5 mL nebulizer solution 2.5 mg 1 07/20/2018 buPROPion SR (WELLBUTRIN SR) 12 hour tablet 300 mg 1 07/19/2018 divalproex ER (DEPAKOTE ER) 24 hour tablet 1,500 mg 1 07/19/2018 albuterol HFA (PROVENTIL HFA ,VENTOLIN HFA,PROAIR HFA) 90 mcg/actuation inhaler 4 puff 1 07/18/2018 Diet Count Last Ordered Date First Orde red Date PEDIATRIC DISCHARGE DIET 1 07/20/2018 Nursing Count Last Ordered Date First Orde red Date DISCHARGE ACTIVITY 1 07/20/2018 DISCHARGE CALL PROVIDER 1 07/20/2018 Consult Count Last Ordered Date First Orde red Date IP CONSULT TO ASTHMA PNP (AIM CONSULT) 1 IP CONSULT TO NUTRITION SERVICES 1 07/19/20 18 Admission Count Last Ordered Date First Orde red Date ASSIGN PATIENT STATUS 2 07/18/2018 ADT Patient Update Count Last Ordered Date Firs t Ordered Date ED IP DECISION TO ADMIT 1 07/18/2018 documented in this encounter Care Teams Manager Banking Relationship Specialty Start Date End Date Bassem Cho MD [address] [facility] [address] [place] [id number] PCP - General 01/17/17 12/19/18 documented as of this encounter
--- OUTSIDE RECORDS SUMMARY | 2024-10-16 03:38 | XMS_ITS | Encounter Summary ---
Author Organization [facility] Facility Care Team Providers Care Cash Register Operator Name Role Phone Unavailable Primary Care Provider Unavailabl e Encounter Details Date Type Department Care Team (Latest Contact Info) Description 12/13/2010 1:10 PM CDT - 12/13/2010 4:57 PM CDT Hospital Encounter [facility] Open wound of lip; Open wound of mouth; Fall resulting in striking against other object; Place of occurrence, public building; Asthma Social History Tobacco Use Types Packs/Day Years Used Date Smoking Tobacco: Never Assessed Comments Unknown Sex and Gender Information Value Date Recorded Sex Assigned at Not on file 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 01/07/2021 9:24 AM CDT Sexual Orientation Not on file documented as of this encounter Plan of Treatment Not on file documented as of this encounter Visit Diagnoses Diagnosis Open wound of lip Open wound of lip, without mention of complication Open wound of mouth Open wound of mouth, unspecified site, without mention of complication Fall resulting in striking against other object Place of occurrence, public building Asthma Unspecified asthma documented in this encounter
--- OUTSIDE RECORDS SUMMARY | 2024-10-16 03:38 | XMS_ITS | Encounter Summary ---
Author Organization [facility] Facility Care Team Providers Care Wic Site Coordinator Name Role Phone Unavailable Primary Care Provider Unavailabl e Encounter Details Date Type Department Care Team (Latest Contact Info) Description 08/01/2011 2:51 PM CDT - 08/01/2011 11:59 PM CDT Hospital Encounter [facility] Screening for chemical poisoning and other contamination Social History Tobacco Use Types Packs/Day Years Used Date Smoking Tobacco: Never Assessed Comments Unknown Sex and Gender Information Value Date Recorded Sex Assigned at Not on file 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 01/07/2021 9:24 AM CDT Sexual Orientation Not on file documented as of this encounter Plan of Treatment Not on file documented as of this encounter Visit Diagnoses Diagnosis Screening for chemical poisoning and other contamination documented in this encounter
--- OUTSIDE RECORDS SUMMARY | 2024-10-16 03:38 | XMS_ITS | Encounter Summary ---
Author Organization [facility] Healthcare Address [address] [place] [address] Care Team Providers Care Afloat Cryptologic Manager Name Role Phone Bassem Cho MD Primary Care Provider Encounter Details Date Type Department Care Team (Latest Contact Info) Description 01/26/2017 10:30 AM CDT - 01/28/2017 10:30 AM CDT Hospital Encounter [facility] Herbert Recio MD [address] [facility] [address] [place] [address] Muscle spasm of back Social History Tobacco Use Types Packs/Day Years Used Date Smoking Tobacco: Never Assessed Comments Unknown Sex and Gender Information Value Date Recorded Sex Assigned at Not on file 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 01/07/2021 9:24 AM CDT Sexual Orientation Not on file documented as of this encounter Plan of Treatment Not on file documented as of this encounter Visit Diagnoses Diagnosis Muscle spasm of back documented in this encounter Care Teams Afloat Cryptologic Manager Relationship Specialty Start Date End Date Bassem Cho MD [address] [facility] [address] [place] [address] PCP - General 01/17/17 12/19/18 documented as of this encounter
--- OUTSIDE RECORDS SUMMARY | 2024-10-16 03:38 | XMS_ITS | Encounter Summary ---
Author Organization [facility] Healthcare Address [address] [place] [address] Care Team Providers Care Clinical Athletic Instructor Name Role Phone Bassem Cho MD Primary Care Provider Reason for Visit * Reason Comments Asthma Encounter Details Date Type Department Care Team (Late st Contact Info) Description 07/16/2018 6:37 PM CDT - 07/16/2018 10:28 PM CDT Emergency [facility] [place] [address] Feng Chavez MD [facility] [address] [place], [place] [id number] Moderate persistent asthma with exacerbation (Primary Dx) Discharge Disposition: Discharge to home or self care Social History Tobacco Use Types Packs/Day Years Used Date Smoking Tobacco: Never Assessed Comments Unknown Sex and Gender Information Value Date Recorded Sex Assigned at Not on file 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 01/07/2021 9:24 AM CDT Sexual Orientation Not on file documented as of this encounter Last Filed Vital Signs Vital Sign Reading Time Taken Comments Blood Pressure 118/66 07/16/2018 6:43 PM CDT Pulse 100 07/16/2018 10:14 PM CDT Temperature 36.2 ??C (97.2 ??F) 07/16/2018 1 0:14 PM CDT Respiratory Rate 21 07/16/2018 10:1 4 PM CDT Oxygen Saturation 97% 07/16/2018 10: 14 PM CDT Inhaled Oxygen Concentration - - Weight 72.1 kg (158 lb 15.2 oz) 07/16/2018 6:43 PM CDT Height - - Body Mass Index - - documented in this encounter Discharge Instructions * Discharge Instructions* Aravind Breen MD - 07/16/2018 10:06 PM CDT As we discussed, please take the full course of higher-dose steroids that we prescribed for the next 5 days. Continue to use your inhalers and all other normal medications. Please be sure to keep your followup appointment with your pulmonary doctor as scheduled. If you are persistently severely short of breath with very rapid breathing, inability to talk in complete sentences, or tugging/pulling of muscles in your neck and chest with breathing, and this doesnot improve or go away with medication, please return to the ED. * Attachments The following attachments cannot be sent through Care Everywhere. * Asthma, Acute (Child) (Georgian) documented in this encounter Medications at Time of Discharge albuterol (PROVENTIL,OLIVER ANDRY) 2.5 mg /3 mL (0.083 %) nebulizer solution USE 1 VIAL PER NEBULIZER EVERY 4 HOURS NEEDED 0 07/08/2018 8 amoxicillin-clav ulanate (AUGMENTIN) 875-125 mg per tablet 07/15/2018 8 buPROPion XL (WELLBUTRIN XL) 300 mg 24 hr tablet Take 300 mg by mouth every morning. 1 07/05/2018 9 divalproex ER (DEPAKOTE ER) 500 mg 24 hr tablet TAKE 2 TABLETS BY MOUTH AT BEDTIME 0 05/29/2018 2 prednisoLONE (ORAPRED) solution 15 mg/5 mL TAKE 20ML BY MOUTH ONCE DAILY FOR 2 DAYS 0 07/10/2018 8 predniSONE (DELTASONE) 20 mg tablet Take 3 tablets (60 mg total) by mouth daily for 5 days. 15 tablet 07/16/2018 8 PROAIR HFA 90 mcg/actuation inhaler INL 2 [...] mouth daily for 5 days. 15 tablet 07/16/2018 8 documented in this encounter Discharge Disposition Disposition Code Departure Means Destination Discharge to home or self care documented in this encounter ED Notes * Aravind Breen MD - 07/16/2018 7:39 PM CDT HPI Chief Complaint Patient presents with ??? Asthma 12-year-old white female with a history of bronchopulmonary dysplasia, asthma, multiple psychiatricdiagnoses including per chart bipolar disorder, anxiety, depression presents with coughing and shortness of breath. States that she has had escalating asthma symptoms over the past week or 2. Initially had a fever during the 1st 2 days symptoms which then resolved. Did not have any URI symptoms with this. Her typical asthma flare symptoms are increased coughing spells; she has been having worsening coughing fits, dyspnea, chest tightness. Cough has been nonproductive. No abdominal pain or vomiting, but has had some post-tussive retching and nausea. Was recently started on QVAR and takes albute rol inhaler regularly. Currently taking a steroid burst prescribed by PMD; mother describes this isher 3rd steroid burst in the past several weeks. Is due to see a senior credit officer in [place], appointment in about 1-2 weeks. Of note sublingual recently diagnosed with pneumonia. Patient History There are no active problems to display for this patient. Past Medical History: Diagnosis Date ??? Anxiety ??? Asthma ??? Bipolar 1 disorder (CMS/HCC) ??? Depression [...] for chills and fever. HENT: Negative for congestion, rhinorrhea, sneezing and sore throat. Eyes: Negative for visual disturbance. Respiratory: Positive for cough, shortness of breath and wheezing. Negative for chest tightness. Cardiovascular: Negative for chest pain. Gastrointestinal: Negative for abdominal pain, diarrhea and nausea. Genitourinary: Negative for dysuria and hematuria. Musculoskeletal: Negative for back pain. Skin: Negative for rash. Allergic/Immunologic: Negative for immunocompromised state. Neurological: Negative for dizziness, weakness, light-headedness and headaches. Psychiatric/Behavioral: Negative for agitation and confusion. Physical Exam ED Triage Vitals Temp Pulse Resp BP SpO2 07/16/18184207/16/18184207/16/18204807/16/18184207/16/181842 36.7 ??C (98.1 ??F) 104 18 118/66 95 % Temp src Heart Rate Source Patient Position BP Location FiO2 (%) 07/16/181842 -- -- -- -- Temporal Physical Exam Constitutional: She is oriented to person, place, and time. She appears well- developed and well-nourished. No distress. HENT: Head: Normocephalic and atraumatic. Nose: Nose normal. Mouth/Throat: Oropharynx is clear and moist. Eyes: Pupils are equal, round, and reactive to light. Conjunctivae and EOM are normal. Neck: Normal range of motion. Neck supple. Cardiovascular: Normal rate, regular rhythm and normal heart sounds. Pulmonary/Chest: Good aeration throughout with no wheezing, but frequent persistent coughing spells with deep inspiration. Talking in complete sentences with no respiratory distress or use of accessory muscles. Abdominal: Soft. She exhibits no distension. There is no tenderness. Musculoskeletal: Normal range of motion. She exhibits no edema, tenderness or deformity. Neurological: She is alert and oriented to person, place, and time. No sensory deficit. She exhibits normal muscle tone. No motor deficit. Skin: Skin is warm and dry. No rash noted. Psychiatric: She has a normal mood and affect. Her behavior is normal. Nursing note and vitals reviewed. MDM MDM Number of Diagnoses or Management Options Diagnosis management comments: 12-year-old white female with a history of bronchopulmonary dysplasia, asthma, multiple psychiatric diagnoses presents with weeks of worsening coughing spells, dyspnea,chest tightness, despite control medications, albuterol, and multiple steroid bursts, 1 of which she is currently taking. Has not had productive cough or recent fever or URI symptoms; sister recentlydiagnosed with pneumonia. On examination, talking in complete sentences with no oxygen requirement,no respiratory distress, no tachypnea. Lungs clear throughout with good auscultation no wheezes, but frequent coughing spells with deep inspiration. At this time, patient is on excellent outpatient management with controller med, albuterol, and steroids, and do not believe we would have much additional to add for asthma control from the ED at this time. Given her overall reassuring respiratory exam I would not favor admission at this time. Given the possible atypical and worsening course with failure to respond to appropriate management, will on chest x-ray to screen for occult pathology such as pneumonia, pneumothorax, pulmonary edema. ED Course as of Jul 16 2221 Time: 07/16 2201 Comment: Discussed with patient. Appears that her previous steroid bursts have been 3 days each, 40--> 20 --> 20. Believe this is likely underdosed for her age and size, will start a 5-day 60 mg burst. By: Aravind Breen MD Moderate persistent asthma with exacerbation Aravind Breen MD 07/16/182220 Cosigned by Feng Chavez MD at 07/17/2018 10:42 AM CDT Associated attestation - Feng Chavez MD - 07/17/2018 10:42 AM CDT I have seen and examined the patient on 07/16/2018 . I agree with the findings and plan of care as documented in the resident's note. * Alessia Petty RN - 07/16/2018 7:01 PM CDT Bed: [id number] Expected date: Expected time: Means of arrival: Car Comments: Alessia Petty RN 07/16/18 190 * Malia Vieyra RN - 07/16/2018 6:47 PM CDT Pt with asthma exacerbation for past 7-10 days, getting worse over past few days documented in this encounter Plan of Treatment Not on file documented as of this encounter Procedures Procedure Name Priority Date/Time Associated Diagnosis Comments XR CHEST PA LATERAL 2 VIEWS ED 07/16/2018 8:24 PM CDT documented in this encounter Results * XR Chest Pa Lateral 2 Views (07/16/2018 8:24 PM CDT) Anatomical Region Laterality Modality Body, Chest N/A Computed Radiogr aphy 07/16/2018 8:27 PM CDT Impressions 07/17/2018 9:25 AM CDT Clear lungs. Dictated by: Louise Alan M.D. Electronically signed by: Vicky Zurita Narrative 07/17/2018 9:25 AM CDT EXAMINATION: Chest 2 views Frontal and Lateral. COMPARISON: 11/12/2009 HISTORY:12-year-old girl with a history of bronchopulmonary dysplasia and asthma presenting with coughing and shortness of breath. FINDINGS: The lungs are clear. No pneumothorax, pleural effusion, pulmonary edema, or pneumonic consolidation. The cardiomediastinal silhouette is normal. ?? Procedure Note Vicky Zurita MD - 07/17/2018 EXAMINATION: Chest 2 views Frontal and Lateral. COMPARISON: 11/12/2009 HISTORY:12-year-old girl with a history of bronchopulmonary dysplasia and asthma presenting with coughing and shortness of breath. FINDINGS: The lungs are clear. No pneumothorax, pleural effusion, pulmonary edema, or pneumonic consolidation. The cardiomediastinal silhouette is normal. IMPRESSION: Clear lungs. Dictated by: Louise Alan M.D. Electronically signed by: Vicky Zurita Aravind Breen MD IMG XR PROCEDURES F inal Result documented in this encounter Visit Diagnoses Diagnosis Moderate persistent asthma with exacerbation- Primary Unspecified asthma, with exacerbation documented in this encounter Administered Medications Inactive Administered Medications - up to 3 most recent administrations Medication Order MAR Action Action Date Dose Rate Site albuterol (PROVENTIL,VENTOLIN) 2.5 mg/0.5 mL nebulizer solution - ADS Override Pull Starting on Sun07/16/18 at 2011, For 1 dose, Kenny Guerra: cabinet override albuterol (PROVENTIL,VENTOLIN) 2.5 mg/0.5 mL nebulizer solution 10 mg 10 mg, nebulization, Once, On Sun07/16/18 at 2006, For 1 dose Given 07/16/2018 8:11 PM CDT 10 mg albuterol (PROVENTIL,VENTOLIN) 2.5 mg/0.5 mL nebulizer solution 2.5 mg 2.5 mg, nebulization, Once, On Sun07/16/18 at 1931, For 1 dose, Indications: Asthma ExacerbationIndications:Asthma Exacerbation Given 07/16/2018 7:40 PM CDT 2.5 mg ipratropium (ATROVENT) 0.02 % nebulizer solution - ADS Override Pull Starting on Sun07/16/18 at 2011, For 1 dose, Kenny Guerra: cabinet override ipratropium (ATROVENT) 0.02 % nebulizer solution 0.5 mg 0.5 mg, nebulization, Once, On Sun07/16/18 at 2006, For 1 dose Given 07/16/2018 8:11 PM CDT 0.5 mg predniSONE (DELTASONE) tablet 60 mg 60 mg, oral, Once, On Sun07/16/18 at 2204, For 1 dose Given 07/16/2018 10:24 PM CDT 60 mg documented in this encounter Historical Medications * This list may reflect changes made after this encounter. QUEtiapine (SEROquel) 100 mg tablet TAKE 1 TABLET BY MOUTH EVERYDAY AT BEDTIME 1 07/05/2018 9 prednisoLONE (ORAPRED) solution 15 mg/5 mL TAKE 20ML BY MOUTH ONCE DAILY FOR 2 DAYS 0 07/10/2018 8 divalproex ER (DEPAKOTE ER) 500 mg 24 hr tablet TAKE 2 TABLETS BY MOUTH AT BEDTIME 0 05/29/2018 2 buPROPion XL (WELLBUTRIN XL) 300 mg 24 hr tablet Take 300 mg by mouth every morning. 1 07/05/2018 9 QVAR REDIHALER 40 mcg/actuation inhaler Inhale 2 puffs 2 (two) times a day. 2 07/08/2018 9 amoxicillin-clav ulanate (AUGMENTIN) 875-125 mg per tablet 07/15/2018 8 PROAIR HFA 90 mcg/actuation inhaler INL 2 PFS VIA SPACER Q 4 TO 6 H COU OR WHZ 1 07/05/2018 8 albuterol (PROVENTIL,OLIVER ANDRY) 2.5 mg /3 mL (0.083 %) nebulizer solution USE 1 VIAL PER NEBULIZER EVERY 4 HOURS NEEDED 0 07/08/2018 8 added in this encounter Active and Recently Administered Medications Times are shown in CDT. Scheduled Medication Order 07/14/2018 07/15/2018 07/16/2018 albuterol (PROVENTIL,VENTOLIN) 2.5 mg/0.5 mL nebulizer solution 10 mg (COMPLETED)(Linked Group 1) 10 mg, nebulization, Once, On Sun07/16/18 at 2006, For 1 dose 2010 (Given - Provid er: Jl Crowe RN) albuterol (PROVENTIL,VENTOLIN) 2.5 mg/0.5 mL nebulizer solution 2.5 mg (COMPLETED) 2.5 mg, nebulization, Once, On Sun07/16/18 at 1930, For 1 dose, Indications: Asthma Exacerbation 1939 (Given - Provid er: Jl Crowe RN) ipratropium (ATROVENT) 0.02 % nebulizer solution 0.5 mg (COMPLETED)(Linked Group 1) 0.5 mg, nebulization, Once, On Sun07/16/18 at 2006, For 1 dose 2010 (Given - Provid er: Jl Crowe RN) predniSONE (DELTASONE) tablet 60 mg (COMPLETED) 60 mg, oral, Once, On Sun07/16/18 at 2204, For 1 dose 2224 (Given - Provid er: Jl Crowe RN) Linked Groups Order Group 1: albuterol (PROVENTIL,VENTOLIN) 2.5 mg/0.5 mL nebulizer solution 10 mg (COMPLETED)Jump to med 10 mg, nebulization, Once, On Sun07/16/18 at 2006, For 1 dose And ipratropium (ATROVENT) 0.02 % nebulizer solution 0.5 mg (COMPLETED)Jump to med 0.5 mg, nebulization, Once, On Sun07/16/18 at 2006, For 1 dose documented in this encounter Care Teams Clinical Athletic Instructor Relationship Specialty Start Date End Date Bassem Cho MD [address] [place] [address] [place] [id number] PCP - General 01/17/17 12/19/18 documented as of this encounter
--- OUTSIDE RECORDS SUMMARY | 2024-10-16 03:38 | XMS_ITS | Encounter Summary ---
Author Organization 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 01/07/2021 9:24 AM CDT Sexual Orientation Not on file documented as of this encounter Last Filed Vital Signs Vital Sign Reading Time Taken Comments Blood Pressure - - Pulse - - Temperature - - Respiratory Rate - - Oxygen Saturation - - Inhaled Oxygen Concentration - - Weight 32.7 kg (72 lb 1.5 oz) 08/04/2013 5:43 PM PROJECT MANAGER FINANCE Height - - Body Mass Index - - documented in this encounter Plan of Treatment Not on file documented as of this encounter Visit Diagnoses Diagnosis Abdominal pain Abdominal pain, unspecified site documented in this encounter
--- OUTSIDE RECORDS SUMMARY | 2024-10-21 04:42 | XMS_ITS | Encounter Summary ---
Author Organization [facility] Address [address] [place] [address]. [place] [address] [place] [address] Care Team Providers Care Fisher Pound Net Or Trap Name Role Phone None, Provider Primary Care Provider Bryana ble Encounter Details Date Type Department Care Team (Late st Contact Info) Description 06/06/2022 - 06/06/2022 11:59 PM CDT Hospital Encounter [facility] [address] [place] [address] Larissa Choudhary NP [address] [place] [address] Discharge Disposition: Home or Self [...] documented as of this encounter Care Teams [employer] T[employer] Relationship Specialty Start Date End Date None, Provider, PCP - General 06/08/21 documented as of this encounter
--- OUTSIDE RECORDS SUMMARY | 2024-10-21 04:42 | XMS_ITS | Encounter Summary ---
Author Organization [facility] Address [address] [place] [address]. [place] [address] [place] [address] Care Team Providers Care Small Business Consultant Name Role Phone None, Provider MD Primary Care Provider Unavaila ble Reason for Visit * Reason Comments Shortness Of Breath Encounter Details Date Type Department Care Team (Late st Contact Info) Description 07/18/2022 8:45 AM CDT - 07/18/2022 12:44 PM CDT Emergency [facility] [place] [address] Rina Matos, [address] [place], [place] [id number] Shortness Of Breath Discharge Disposition: Home or [...] 07/18/2022 8:5 0 AM CDT Growth Chart: [facility] [...] care by your primary care physician or configuration management consultant.Please mention to your follow-up physician that [...] such as many narcotic drug combinations and [id number] cold medicines. --Again, it was a pleasure taking care of you. * Attachments The following attachments cannot be sent through Care Everywhere. 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 to come into the emergency room as [...] encounter of 07/18/22 ECG 12 lead Narrative [address] Test Date: 2022-07-18 Pat Name: THOMAS NUR Department: 41 Room: [facility] Gender: Female Cotton Farmer: DANELLE : 2005 Requested By: RINA MATOS Order Number: [id number] Reading MD: Emma Boateng Measurements Intervals [place] Rate: 110 P: 50 [place]: 140 QRS: 73 QRSD: 90 T: 39 [...] COLOR (U) LIGHT YELLOW TRANSPARENCY CLEAR Specific [place] (U) 1.029 1.001 - 1.030 U PH [...] YES PATIENT IN ICU NO RESIDENT OF [facility] NO UNKNOWN IMAGING STUDIES XR CHEST PORTABLE Final Result by User, [id number] (07/18 1007) Examination: XR CHEST PORTABLE Exam [...] EKG 1015 sinus tachycardia rate 110 bpm [place] 140 QTc 380 T wave inversion seen [...] still had concern regarding bleeding suicidal ideations. [place] intake was consulted and patient continues to [...] CDT) 07/18/2022 10:1 5 AM CDT Narrative [facility] - 07/18/2022 10:51 AM CDT ? [facility] ? [address] [place] ? Test Date: ?2022-07-18 Pat Name: ? THOMAS BOOM ? Department: ?? 41 ? Room: ? EXAM18 Gender: ? Female ? Cotton Farmer: ?? AD : ?2005 ? Requested By: RINA MATOS Order Number: [id number] ? Reading MD: ?? Emma ?? Mubayed ? Measurements Intervals ?[place] ? Rate: ? 110 ?P: ?50 AZ: ? 140 ?QRS: ?73 QRSD: ? 90 ? T: ?39 QT: ? 315 ? QTc: ?427 ? Interpretive Statements SINUS TACHYCARDIA NONSPECIFIC T-WAVE ABNORMALITY Procedure Note Emma Boateng 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 : 2005 Requested By: RINA MATOS Order Number: [id number] Reading MD: Emma Boateng Measurements Intervals [place] Rate: 110 P: 50 [place]: 140 QRS: 73 QRSD: 90 T: 39 QT: 315 QTc: 427 Interpretive Statements SINUS TACHYCARDIA NONSPECIFIC T-WAVE ABNORMALITY us Rina SAWANT ECG ORDERABLES Final Result Performing Organization Address City/State/[facility] Co de Phone Number [facility] * XR CHEST PORTABLE (07/18/2022 9:51 [...] <0.003 <0.003 G/DL 07/18/2022 10:15 AM CDT [facility] 07/18/2022 9:30 AM CDT Rina [facility]WANT LABORATORY Final Result [facility] [address] [place] [address], * (ABNORMAL) ACETAMINOPHEN (07/18/2022 9:30 AM CDT) ACETAMINOPHEN S/P/B <2.0(L) 10.0 - 30.0 MCG/ML 07/18/2022 10:15 AM CDT [facility] Comment: ?THERAPEUTIC: 10-30 ?TOXIC: >200 07/18/2022 9:30 AM CDT Rina [facility] LABORATORY Final Result Performing Organization Address [facility] de Phone Number [facility] [address] [place] [address], * (ABNORMAL) SALICYLATE (07/18/2022 9:30 AM CDT) SALICYLATES <1.7(L) 2.8 - 20.0 MG/DL 07/18/2022 10:03 AM CDT [facility] Comment: THERAPEUTIC: ?2.8-20.0 Toxic Level: ?>=30 07/18/2022 9:30 AM CDT iRna [facility] LABORAT[facility] Final Result Performing Organization Address City/[facility] Co de Phone Number [facility] [address] [place] [address], [place] [phone] * TSH W/REFLEX (07/18/2022 9:30 AM CDT) TSH 1.230 0.358 - 3.74 uIU/ML 07/18/2022 10:15 AM CDT [facility] Comment: HIGH DOSES OF BIOTIN MAY INTERFERE WITH THIS TEST RESULT. CORRELATION TO CLINICAL HISTORY AND PRESENTATION RECOMMENDED. FREE T4 NOT INDICATED 07/18/2022 9:30 AM CDT Rina [facility] Final Result Performing Organization Address [facility] Co de Phone Number [facility] [address] [place] [address], [place] [phone] * D-DIMER, QUANTITATIVE (07/18/2022 9:30 AM CDT) Pathologist [facility] D-DIMER 285 0 - 500 ng{FEU}/mL 07/18/2022 10:02 AM CDT [facility] Comment: D-Dimer values less than or [...] [facility] Final Result Performing Organization Address [facility] Co de Phone Number [facility] [address] [place] [address], [place] [phone] * (ABNORMAL) LIPASE (07/18/2022 9:30 AM CDT) Pathologist [facility] LIPASE 62(L) 73 - 393 UNITS/L 07/18/2022 10:15 AM CDT [facility] 07/18/2022 9:30 AM CDT Rina SAWANT LABORAT[facility] Final Result [facility] [address] [place] [address], [place] [phone] * (ABNORMAL) CBC W/DIFF AUTOMATED (07/18/2022 9:30 AM CDT) [facility] WBC 9.0 4.5 - 13.0 x10'3/uL 07/18/2022 9:41 AM CDT [facility] RBC 4.48 4.20 - 5.40 x10'6/uL 07/18/2022 9:41 AM CDT [facility] HGB 13.2 12.0 - 16.0 G/DL 07/18/2022 9:41 AM CDT [facility] HCT 40.4 38.0 - 48.0 % 07/18/2022 9:41 AM CDT [facility] MCV 90.2 81.0 - 99.0 FL 07/18/2022 9:41 AM CDT [facility] MCH 29.5 27.0 - 31.0 PG 07/18/2022 9:41 AM CDT [facility] MCHC 32.7 32.0 - 36.0 G/DL 07/18/2022 9:41 AM CDT [facility] RDW 13.1 11.5 - 14.5 % 07/18/2022 9:41 AM CDT [facility] PLT 363 130 - 400 x10'3/uL 07/18/2022 9:41 AM CDT [facility] MPV 8.8(L) 9.3 - 12.2 FL 07/18/2022 9:41 AM CDT [facility] DIFFERENTIAL TYPE AUTOMATED DIFFERENTIAL 07/18/2022 9:41 AM CDT [facility] NEUTROPHILS % 82.1 % 07/18/2022 9:41 AM CDT [facility] LYMPHOCYTES % 14.4 % 07/18/2022 9:41 AM CDT [facility] MONOCYTES % 1.9 % 07/18/2022 9:41 AM CDT [facility] EOSINOPHILS 0.0 % 07/18/2022 9:41 AM CDT [facility] BASOPHILS 0.2 % 07/18/2022 9:41 AM CDT [facility] IMMATURE GRANS % 1.4 % 07/18/20 9:41 AM CDT [facility] ABS. NEUTROPHILS TOTAL 7.40 1.80 - 8.00 x10'3/uL 07/18/2022 9:41 AM CDT [facility] ABS. LYMPHOCYTES 1.30 1.20 - 5.20 x10'3/uL 07/18/2022 9:41 AM CDT [facility] ABS. MONOCYTES 0.17(L) 0.24 - 0.86 x10'3/uL 07/18/2022 9:41 AM CDT [facility] ABS. EOSINOPHILS 0.00(L) 0.04 - 0.36 x10'3/uL 07/18/2022 9:41 AM CDT [facility] ABS. BASOPHILS 0.02 0.01 - 0.08 x10'3/uL 07/18/2022 9:41 AM CDT [facility] ABS. IMMATURE GRANULOCYTES 0.13 0.00 - 0.49 x10'3/uL 07/18/2022 9:41 AM T [facility] 07/18/2022 9:30 AM CDT Rina [facility]OR[facility] Final Result [facility] [address] [place] [address], [place] [phone] * (ABNORMAL) RESPIRATORY PCR PANEL 2 (07/18/2022 9:29 AM CDT) Pathologist [facility] ADENOVIRUS PCR (RESP) NOT DETECTED NOT DETECTED 07/18/2022 10:31 AM CDT [facility] CORONAVIRUS 229E PCR (RESP) NOT DETECTED NOT DETECTED 07/18/2022 10:31 AM CDT [facility] CORONAVIRUS HKU1 PCR (RESP) NOT DETECTED NOT DETECTED 07/18/2022 10:31 AM CDT [facility] CORONAVIRUS NL63 PCR (RESP) NOT DETECTED NOT DETECTED 07/18/2022 10:31 AM CDT [facility] CORONAVIRUS OC43 PCR (RESP) NOT DETECTED NOT DETECTED 07/18/2022 10:31 AM CDT [facility] METAPNEUMOVIRUS PCR (RESP) NOT DETECTED NOT DETECTED 07/18/2022 10:31 AM CDT [facility] RHINOVIRUS/ENTEROV IRUS PCR (RESP) DETECTED(A) NOT DETECTED 07/18/2022 10:31 AM CDT [facility] INFLUENZA A PCR (RESP) NOT DETECTED NOT DETECTED 07/18/2022 10:31 AM CDT [facility] INFLUENZA B PCR (RESP) NOT DETECTED NOT DETECTED 07/18/2022 10:31 AM CDT [facility] PARAINFLUENZA 1 PCR (RESP) NOT DETECTED NOT DETECTED 07/18/2022 10:31 AM CDT [facility] PARAINFLUENZA 2 PCR (RESP) NOT DETECTED NOT DETECTED 07/18/2022 10:31 AM CDT [facility] PARAINFLUENZA 3 PCR (RESP) NOT DETECTED NOT DETECTED 07/18/2022 10:31 AM CDT [facility] PARAINFLUENZA 4 PCR (RESP) NOT DETECTED NOT DETECTED 07/18/2022 10:31 AM CDT [facility] RSV PCR (RESP) NOT DETECTED NOT DETECTED 07/18/2022 10:31 AM CDT [facility] B PARAPERTUSIS PCR (RESP) NOT DETECTED NOT DETECTED 07/18/2022 10:31 AM CDT [facility] BORDETELLA PERTUSSIS PCR (RESP) NOT DETECTED NOT DETECTED 07/18/2022 10:31 AM CDT [facility] CHLAMYDOPHILA PNEUMONIAE PCR (RESP) NOT DETECTED NOT DETECTED 07/18/2022 10:31 AM CDT [facility] MYCOPLASMA PNEUMONIAE PCR (RESP) NOT DETECTED NOT DETECTED 07/18/2022 10:31 AM CDT [facility] CORONAVIRUS SARS COV 2 PCR (RESP) NOT DETECTED NOT DETECTED 07/18/2022 10:31 AM CDT [facility] FIRST TEST UNKNOWN 07/18/2022 9:30 AM CDT [facility] EMPLOYED IN HEALTHCARE NO 07/18/2022 9:30 AM CDT [facility] SYMPTOMATIC DEFINED BY CDC NO 07/18/2022 9:30 AM CDT [facility] HOSPITALIZATION STATUS YES 07/18/2022 9:30 AM CDT [facility] PATIENT IN ICU NO 07/18/2022 9:30 AM CDT [facility] RESIDENT OF [facility] NO 07/18/2022 9:30 AM CDT [facility] UNKNOWN 07/18/2022 9:30 AM CDT [facility] NASOPHARYNGEAL SWAB / Unknown 07/18/2022 9:29 AM CDT us Rina SAWANT MICROBIOLOGY - GENERAL ORDERA PRASANTH Final Result [facility] [address] [place] [address], * DRUG SCREEN RAPID (07/18/2022 9:21 AM CDT) [facility] AMPHETAMINE (U) NEGATIVE NEGATIVE 9:48 AM CDT [facility] BARBITURATES SCREEN (U) NEGATIVE NEGATIVE 07/18/2022 9:48 AM CDT [facility] BENZODIAZEPINES SCREEN (U) NEGATIVE NEGATIVE 07/18/2022 9:48 AM CDT [facility] CANNABINOIDS SCREEN (U) NEGATIVE NEGATIVE 07/18/2022 9:48 AM CDT [facility] COCAINE METABOLITES (U) NEGATIVE NEGATIVE 07/18/2022 9:48 AM CDT [facility] METHADONE (U) NEGATIVE NEGATIVE 07/18/2022 9:48 AM CDT [facility] OPIATE SCREEN (U) NEGATIVE NEGATIVE 022 9:48 AM CDT [facility] PHENCYCLIDINE PCP (U) NEGATIVE NEGATIVE 07/18/2022 9:48 AM CDT [facility] Comment: NOTE: RESULTS OF THIS DRUG SCREEN SHOULD BE USED FOR MEDICAL PURPOSES ONLY AND NOT FOR LEGAL OR EMPLOYMENT PURPOSES. POSITIVE RESULTS ARE NOT CONFIRMED. MEDICATIONS CONTAINING EPHEDRINE MAY CAUSE FALSE POSITIVE AMPHETAMINE CALL 7, LAB, TO REQUEST CONFIRMATION TESTING. IF CREATININE IS <40 mg/dL. ??RECOLLECTION IS SUGGESTED. AMPHETAMINE- ?500 NG/ML BARBITURATE- ?200 NG/ML BENZODIAZEPINES- ??200 NG/ML THC- ? 50 NG/ML COCAINE- ?150 NG/ML METHADONE- ?300 NG/ML OPIATE- ? 300 MG/ML PCP- ? 25 NG/ML CREATININE (U) 190.0 28 - 217 MG/DL 07/18/2022 9:48 AM CDT [facility] URINE SPECIMEN / Unknown 07/18/2022 9:21 AM CDT Rina SAWANT URINE ORDERABLES Final Result Performing Organization Address [facility] de Phone Number [facility] [address] [place] [address], * CULTURE URINE (07/18/2022 9:20 AM CDT) SPEC DESCRIPTION URINE CLEAN CATCH 07/18/2022 9:40 AM CDT [facility] SPECIAL REQUESTS NO SPECIAL REQUEST 07/18/2022 9:40 AM CDT [facility] CULTURE RESULT NO GROWTH 2 DAYS 07/20/2022 8:33 AM CDT [facility] URINE SPECIMEN OBTAINED BY CLEAN CATCH PROCEDURE / Unknown 07/18/2022 9:20 AM CDT 07/18/2022 9:40 AM CDT Rina SAWANT MICROBIOLOGY - GENERAL ORDERA BLES Final Result Performing Organization Address [facility] Co de Phone Number [facility] [address] [place] [address], [place] [phone] * (ABNORMAL) URINALYSIS (07/18/2022 9:20 AM CDT) SPECIMEN TYPE URINE CLEAN CATCH 07/18/2022 9:21 AM T [facility] COLOR (U) LIGHT YELLOW 07/18/2022 9:39 AM T [facility] TRANSPARENCY CLEAR 07/18/2022 9:39 AM [facility] SPECIFIC GRAVITY (U) 1.029 1.001 - 1.030 07/18/2022 9:39 AM T [facility] U PH 6.5 5.0 - 9.0 07/18/2022 9:39 AM T [facility] LEUKOCYTES (U) 250(A) NEGATIVE 07/18/2022 9:39 AM T [facility] NITRITES NEGATIVE NEGATIVE 07/18/2022 9:39 AM [facility] PROTEIN (U) 20 <30 MG/DL 07/18/2022 9:39 AM T [facility] URINE GLUCOSE NORMAL NORMAL MG/DL 07/18/2022 9:39 AM T [facility] KETONES MG/DL (U) 10(A) NEGATIVE MG/DL 07/18/2022 9:39 AM T [facility] UROBILINOGEN NORMAL NORMAL MG/DL 07/18/2022 9:39 AM T [facility] BILIRUBIN (U) NEGATIVE NEGATIVE MG/DL 07/18/2022 9:39 AM T [facility] BLOOD (U) NEGATIVE NEGATIVE 07/18/2022 9:39 AM [facility] CULTURE & SENSITIVITY INDICATED? SPECIMEN SETUP FOR CULTURE 07/18/2022 9:39 AM T [facility] MUCUS MODERATE /LPF 07/18/2022 9:39 AM [facility] WBC/HPF 9(H) <6 /HPF 07/18/2022 9:39 AM CDT [facility] RBC/HPF 8(H) <6 /HPF 07/18/2022 9:39 AM CDT [facility] SQUAMOUS EPITHELIALS RARE /HPF 07/18/2022 9:39 AM CDT [facility] URINE SPECIMEN OBTAINED BY CLEAN CATCH PROCEDURE / Unknown 07/18/2022 9:20 AM CDT Rina SAWANT URINE ORDERABLES Final Result [facility] [address] [place] [address], [place] [phone] documented in this encounter Visit Diagnoses Diagnosis Rhinovirus- Primary Rhinovirus infection in conditions classified elsewhere and of unspecified site Asthma exacerbation ([facility]/HCC) Unspecified asthma, with exacerbation History of suicidal [...] 1004 (Given - Provid er: Sathya Rodriguez, PATIENT FINANCIAL SERVICES SPECIALIST) sodium chloride 0.9% bolus infusion 1,000 mL [...] documented as of this encounter Care Teams Small Business Consultant Relationship Specialty Start Date End Date None, Provider, PCP - General 06/08/21 documented as of this encounter
--- OUTSIDE RECORDS SUMMARY | 2024-10-21 04:42 | XMS_ITS | Encounter Summary ---
Author Organization [facility] Address [address] [place] [address]. [place] [address] [place] [address] Care Team Providers Care Automobile Relocation Engineer Name Role Phone None, Provider Primary Care Provider Unavaila ble Encounter Details Date Type Department Care Team (Late st Contact Info) Description 06/05/2022 Patient Self-Triage MYCHART DEPARTMENT [address] [place] [address] [facility] Provider Social History Tobacco Use Types Packs/Day [...] on filedocumented in this encounter Care Teams Automobile Relocation Engineer Relationship Specialty Start Date End Date None, Provider, PCP - General 06/08/21 documented as of this encounter
--- OUTSIDE RECORDS SUMMARY | 2024-10-21 04:42 | XMS_ITS | Encounter Summary ---
Author Organization [facility] Address [address] [place] [address]. [place] [address] [place] [address] Care Team Providers Care Oracle Bpm Consultant Name Role Phone None, Provider Primary Care Provider Unavaila ble Encounter Details Date Type Department Care Team (Late st Contact Info) Description 06/06/2022 11:55 AM CDT Laboratory Only [facility] [address] [address] Larissa Choudhary, CERTIFIED LOW VISION THERAPIST [address] [place] [address] Social History Tobacco Use Types Packs/Day Years [...] Results * (ABNORMAL) CORONAVIRUS (COVID 19) PCR ([facility]) (06/06/2022 11:57 AM CDT) SPEC DESCRIPTION NASAL 06/06/20 11:57 AM CDT [facility] CORONAVIRUS SARS COV 2 PCR (RESP) POSITIVE(AA ) NEGATIVE 06/08/2022 4:45 AM CDT [facility] Comment: THE SARS-CoV-2 TEST HAS BEEN AUTHORIZED BY THE FDA UNDER AN EUA FOR USE BY AUTHORIZED LABORATORIES. PERFORMED BY NUCLEIC ACID AMPLIFICATION PCR FIRST TEST NO 06/06/2022 11:57 AM CDT [facility] EMPLOYED IN HEALTHCARE NO 06/06/2022 11:57 AM CDT [facility] SYMPTOMATIC DEFINED BY CDC YES 06/06/2022 11:57 AM CDT [facility] DATE OF SYMPTOM ONSET 2022060106/06/2022 11:57 AM CDT [facility] HOSPITALIZATION STATUS NO 06/06/2022 11:57 AM CDT [facility] PATIENT IN ICU NO 06/06/2022 11:57 AM CDT [facility] RESIDENT OF [facility] NO 06/06/2022 11:57 AM T [facility] NOT 06/06/2022 11:57 AM T [facility] NASAL STRUCTURE / Unknown 06/06/2022 11:57 AM CDT Larissa Choudhary NP MICROBIOLOGY - GENERAL CLEO BETTENCOURT Final Result [facility] [address] [place] [address], documented in this encounter Visit Diagnoses Diagnosis Encounter for laboratory testing for COVID-19 virus- Primary documented in this encounter Additional Health Concerns Infection Onset Date Last Indicated Resolved Time COVID-19 Rule Out 06/06/2022 06/06/2022 06/08/2022 4:45 AM CDT COVID-19 Confirmed 06/06/2022 06/06/202207/01/202 2 12:32 AM CDT documented as of this encounter Care Teams Oracle Bpm Consultant Relationship Specialty Start Date End Date None, Provider, PCP - General 06/08/21 documented as of this encounter
--- OUTSIDE RECORDS SUMMARY | 2024-10-21 04:42 | XMS_ITS | Encounter Summary ---
Author Organization [facility] Address [address] [place] [address]. [place] [address] [place] [address] Care Team Providers Care Customer Service Associate Name Role Phone None, Provider Primary Care [...] documented as of this encounter Care Teams Customer Service Associate Relationship Specialty Start Date End Date None, Provider, PCP - General 06/08/21 documented as of this encounter
--- OUTSIDE RECORDS SUMMARY | 2024-10-21 04:42 | XMS_ITS | Clinical Summary ---
Author Organization [facility] Address [address] [place] [address]. [place] [address] [place] [address] Care Team Providers Care Agricultural Appraiser Name Role Phone None, Provider MD Primary [...] patient's age to complete this topic Insurance [facility] Care Teams Agricultural Appraiser Relationship Specialty Start Date End Date None, Provider, PCP - General 06/08/21
--- OUTSIDE RECORDS SUMMARY | 2024-10-21 04:42 | XMS_ITS | Encounter Summary ---
Author Organization [facility] Address [address] [place] [address]. [place] [address] [place] [address] Care Team Providers Care Premix Concrete Batcher Name Role Phone None, Provider Primary Care [...] documented as of this encounter Care Teams Premix Concrete Batcher Relationship Specialty Start Date End Date None, Provider, PCP - General 06/08/21 documented as of this encounter
--- OUTSIDE RECORDS SUMMARY | 2024-10-21 04:42 | XMS_ITS | Encounter Summary ---
Author Organization [facility] Address [address] [place] [address]. [place] [address] [place] [address] Care Team Providers Care Science Faculty Member Name Role Phone None, Provider Primary Care Provider Unavaila ble Encounter Details Date Type Department Care Team (Late st Contact Info) Description 08/29/2022 Orders Only [facility] [place] [address] [place] [address] [place] [address] [address] Social History Tobacco Use Types Packs/Day Years [...] on filedocumented in this encounter Care Teams Science Faculty Member Relationship Specialty Start Date End Date None, Provider, PCP - General 06/08/21 documented as of this encounter
--- OUTSIDE RECORDS SUMMARY | 2024-10-21 04:42 | XMS_ITS | Encounter Summary ---
Author Organization [facility] Address [address] [place] [address]. [place] [address] [place] [address] Care Team Providers Care Family Development Specialist Name Role Phone None, Provider MD Primary Care Provider Unavaila ble Reason for Visit * Reason Onset Date Comments Referral 05/17/2023 Encounter Details Date Type Department Care Team (Late st Contact Info) Description 05/17/2023 Telephone [facility] Medical Group Diabetes and Endocrinology - [address] [address] Oscar Crowley MD Referral Social History Tobacco [...] PCP, Kira Pineda, sent a referral. Cb# [phone] documented in this encounter Plan of Treatment Not on file documented as of this encounter Visit Diagnoses Not on filedocumented in this encounter Care Teams Family Development Specialist Relationship Specialty Start Date End Date None, Provider, PCP - General 06/08/21 documented as of this encounter
--- OUTSIDE RECORDS SUMMARY | 2024-10-21 04:43 | XMS_ITS | Encounter Summary ---
Author Organization [facility] Address [address] [place] [address]. [place] [address] [place] [address] Care Team Providers Care Railroad Brake Operator Name Role Phone Unavailable Primary Care Provider Unavailabl e Encounter Details Date Type Department Care Team (Late st Contact Info) Description 06/07/2021 Patient Self-Triage MYCHART DEPARTMENT [address] [place] [address] [facility] Provider Social History Tobacco Use [...]
--- OUTSIDE RECORDS SUMMARY | 2024-10-21 04:43 | XMS_ITS | Encounter Summary ---
Author Organization [facility] Address [address] [place] [address]. [place] [address] [place] [address] Care Team Providers Care Deck Engine Operator Name Role Phone None, Provider Primary Care Provider Unavaila ble Encounter Details Date Type Department Care Team (Late st Contact Info) Description 06/08/2021 11:15 AM CDT Laboratory Only [facility] Medical [address] [address] Social History Tobacco Use Types Packs/Day Years [...] encounter Results * CORONAVIRUS (COVID 19) PCR ([facility]) (06/08/2021 10:56 AM CDT) SPEC DESCRIPTION NASAL 06/08/20 10:57 AM CDT [facility] CORONAVIRUS SARS COV 2 PCR (RESP) NEGATIVE NEGATIVE 06/09/2021 4:26 PM CDT [facility] Comment: THE SARS-CoV-2 TEST HAS BEEN AUTHORIZED BY THE FDA UNDER AN EUA FOR USE BY AUTHORIZED LABORATORIES. PERFORMED BY NUCLEIC ACID AMPLIFICATION PCR FIRST TEST NO 06/08/2021 10:57 AM CDT [facility] EMPLOYED IN HEALTHCARE NO 06/08/2021 10:57 AM CDT [facility] SYMPTOMATIC DEFINED BY CDC YES 06/08/2021 10:57 AM CDT [facility] DATE OF SYMPTOM ONSET 2021060406/08/2021 10:57 AM CDT [facility] HOSPITALIZATION STATUS NO 06/08/2021 10:57 AM CDT [facility] PATIENT IN ICU NO 06/08/2021 10:57 AM CDT [facility] RESIDENT OF [facility] NO 06/08/2021 10:57 AM CDT [facility] NOT 06/08/2021 10:57 AM CDT [facility] NASAL STRUCTURE / Unknown 06/08/2021 10:56 AM CDT Larissa Choudhary NP MICROBIOLOGY - GENERAL CLEO BETT[place]OURT Final Result [facility] [address] [place] [address], documented in this encounter Visit Diagnoses Diagnosis Encounter for laboratory testing for COVID-19 virus- Primary documented in this encounter Additional Health Concerns Infection Onset Date Last Indicated Resolved Time COVID-19 Rule Out 06/08/2021 06/08/2021 06/09/2021 4:26 PM CDT documented as of this encounter Care Teams Deck Engine Operator Relationship Specialty Start Date End Date None, Provider, PCP - General 06/08/21 documented as of this encounter
--- OUTSIDE RECORDS SUMMARY | 2024-10-21 04:43 | XMS_ITS | Encounter Summary ---
Author Organization [facility] Address [address] [place] [address]. [place] [address] [place] [address] Care Team Providers Care Surfacing Machine Operator Name Role Phone Adan Ibarra MD Primary Care Provider Unavailable Encounter Details Date Type Department Care Team (Late st Contact Info) Description 12/30/2016 Emergency [facility] [place] [address] Jl Schultz MD [facility] [place] [address] Social History Tobacco Use Types Packs/Day Years [...] back documented in this encounter Care Teams Surfacing Machine Operator Relationship Specialty Start Date End Date Adan Ibarra MD PCP - General 12/30/16 documented as of this encounter
--- OUTSIDE RECORDS SUMMARY | 2024-10-21 04:43 | XMS_ITS | Encounter Summary ---
Author Organization [facility] Address [address] [place] [address]. [place] [address] [place] [address] Care Team Providers Care Associate Professor Of Economics Name Role Phone Adan Ibarra MD Primary Care Provider Unavailable Encounter Details Date Type Department Care Team (Late st Contact Info) Description 08/04/2017 Scan [place] [place] [id number] Adan Ibarra MD Social History Tobacco Use [...] on filedocumented in this encounter Care Teams Associate Professor Of Economics Relationship Specialty Start Date End Date Adan Ibarra MD PCP - General 12/30/16 documented as of this encounter
--- OUTSIDE RECORDS SUMMARY | 2024-10-21 04:43 | XMS_ITS | Encounter Summary ---
Author Organization [facility] Address [address] [place] [address]. [place] [address] [place] [address] Care Team Providers Care Livestock Dealer Name Role Phone None, Provider Primary Care Provider Unavaila ble Encounter Details Date Type Department Care Team (Late st Contact Info) Description 06/08/2021 - 06/08/2021 11:59 PM CDT Hospital Encounter [facility] [address] [facility] [place] [address] Larissa Choudhary NP [address] [place] [address] Discharge Disposition: Home or Self [...] documented as of this encounter Care Teams Livestock Dealer Relationship Specialty Start Date End Date None, Provider, PCP - General 06/08/21 documented as of this encounter
--- OUTSIDE RECORDS SUMMARY | 2024-10-21 04:43 | XMS_ITS | Encounter Summary ---
Author Organization [facility] - [facility] Address [address] [place] [address]. [place] [address] [place] [address] Care Team Providers Care Retail Assistant Manager Name Role Phone None, Provider Primary Care Provider Unavaila ble Encounter Details Date Type Department Care Team (Late st Contact Info) Description 10/11/2021 Patient Self-Triage MYCHART DEPARTMENT [address] [place] [address] Johanna, [facility] Provider Social History Tobacco Use Types Packs/Day [...] on filedocumented in this encounter Care Teams Retail Assistant Manager Relationship Specialty Start Date End Date None, Provider, PCP - General 06/08/21 documented as of this encounter
--- OUTSIDE RECORDS SUMMARY | 2024-10-21 04:43 | XMS_ITS | Encounter Summary ---
Author Organization [facility] Address [address] [place] [address]. [place] [address] [place] [address] Care Team Providers Care Chainstitch Tunnel Elastic Operator Name Role Phone None, Provider Primary Care Provider Unavaila ble Encounter Details Date Type Department Care Team (Late st Contact Info) Description 10/13/2021 3:30 PM [facility] Medical [address] [address] Chuy Slater MD [address] [place] [address] Social History Tobacco Use Types [...] diseases documented in this encounter Care Teams Chainstitch Tunnel Elastic Operator Relationship Specialty Start Date End Date None, ProviderMD PCP - General 06/08/21 documented as of this encounter
--- OUTSIDE RECORDS SUMMARY | 2024-10-21 04:43 | XMS_ITS | Encounter Summary ---
Author Organization [facility] Address [address] [place] [address]. [place] [address] [place] [address] Care Team Providers Care Rn Research Name Role Phone Unavailable Primary Care Provider Unavailabl e Reason for Visit * Reason Comments Obrien Encounter Details Date Type Department Care Team (Late st Contact Info) Description 02/24/2018 12:05 AM CDT - 02/24/2018 3:07 AM CDT Emergency [facility] [place] [address] Faizan Wood MD [address] [facility] [address] [place] [address] Obrien Discharge Disposition: Home or [...] 02/24/2018 12: 05 AM CDT Growth Chart: [facility] (Girls, 2- 20 Years) documented in [...] such as close to the equator or [facility]. Sunburn can cause redness, pain, blisters, chills, [...] throwing up. Where can I learn more? [place] [employer] https://www.aad.org/public/kids/skin/skin-cancer/treating-sunburn [place] [employer] http://www.healthychildren.org/Kazakh/ages-stages/baby/dfsymee-evja-dmrl/Pages/ Uvly-Axyuhsx-Jgfrrrtlmf.aspx Skin Cancer Foundation http://www.skincancer.org/prevention/sunburn/lybw-kuzv-ry-sndme-s-goypnit Last Reviewed Date 2016-06-15 Consumer Information Use [...] right for you. Copyright Copyright ?? 2018 [employer] and its affiliates and/or [...]
--- OUTSIDE RECORDS SUMMARY | 2024-10-21 04:43 | XMS_ITS | Encounter Summary ---
Author Organization [facility] Address [address] [place] [address]. [place] [address] [place] [address] Care Team Providers Care University Intern Name Role Phone None, Provider Primary Care [...] documented as of this encounter Care Teams University Intern Relationship Specialty Start Date End Date None, Provider, PCP - General 06/08/21 documented as of this encounter
--- OUTSIDE RECORDS SUMMARY | 2024-10-21 04:44 | XMS_ITS | Encounter Summary ---
Author Organization [facility] Address [address] [place] [address] Phone Care Team Providers Care Staff Nurse Midwife Name Role Phone Bassem Cho MD Unavailable [phone] Cortney Pineda NP Primary Care Provider [phone] Encounter Details Date Type Department Care Team (Late st Contact Info) Description 12/14/2022 11:30 AM CDT Office Visit [facility] Neurology [address] [place] [address] Negrita Pride MD PhD [id number] [place] [address] Functional neurological symptom disorder with abnormal movement [...] on file Legal Sex Female 6:43 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 01/07/2021 9:24 AM [...] 12/14/2022 12: 13 PM CDT Growth Chart: [facility] (Girls, 2- 20 Years) documented [...] from the original note were not included. [facility] Patient Name: LEXIE NUR Medical Record Number (MRN): [id number] Date of (): 2005 Encounter Date: 12/14/2022 [...] the family. She had 4 hospitalizations over [id number]. Mood has been worse with mood swings [...] that she struggles to make friends and picking table worker on social cues. She feels that there [...] taking some easier classes at 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 Past Medical History: Diagnosis Date Bipolar [...] reflex flexor bilaterally. Coordination: No dysmetria on yqoxqj-rx-phrj bilaterally Gait: deferred, previously Narrow base, steady. [...] we will continue. 1. Continue Clonidine ER, [id number] 2. Return to OT 3. Recheck Vit D level 4. RTC 6 months Thank you for allowing me to participate in the care of your patient. If you have any questions, feel free to contact me at [phone]. I have provided the family with contact [...] the patient. Sincerely, Negrita Pride MD PhD Custodian of Neurology Division of Pediatric Neurology Cerebral [...] 12/11/2022 added in this encounter Care Teams Staff Nurse Midwife Relationship Specialty Start Date End Date Cortney Pineda NP [address] [place] [address] PCP - General 06/09/19 Bassem Cho MD [address] [address] [place] [address] 12/20/18 documented as of this encounter
--- OUTSIDE RECORDS SUMMARY | 2024-10-21 04:44 | XMS_ITS | Encounter Summary ---
Author Organization [facility] Address [address] [place] [address] Phone Care Team Providers Care Hop Farmer Name Role Phone Bassem Cho MD Unavailable [phone] Cortney Pineda NP Primary Care Provider [phone] Reason for Referral * Medication Authorization (Routine) - Closed Specialty Diagnoses / Procedures Referred By Contac t Referred To Contact Diagnoses Encounter for management and injection of depo-Provera Jimena Lim MD [address] [place] [address] Phone: tel: fax: Referral ID Status Reason Start Date Expiration Date Visits Re quested Visits Authorized [id number] Closed 09/06/2023 10/05/2024 1 1 LIFT MULE OPERATOR Reason for Visit * Medication Authorization (Routine) - Closed Specialty Diagnoses / Procedures Referred By Contac t Referred To Contact Diagnoses Encounter for management and injection of depo-Provera Jimena Lim MD [address] [place] [address] Phone: tel: fax: Referral ID Status Reason Start Date Expiration Date Visits Re quested Visits Authorized [id number] Closed 09/06/2023 10/05/2024 1 1 Encounter Details Date Type Department Care Team (Late st Contact Info) Description 09/06/2023 4:00 PM HIGH LIFT MULE OPERATOR Office Visit [facility] Pediatric[facility] [address] [facility] [address] [place] [address] Jimena Lim MD [address] [place] [address] Encounter for management and injection of depo-Provera [...] on file Legal Sex Female 6:43 AM HIGH LIFT MULE OPERATOR Gender Identity . 01/07/2021 9:24 AM [...] Logan CMA Mary E. Fournier, MD, MPH LIFT MULE OPERATOR documented in this encounter Plan of [...] injection of depo-Provera Given 09/06/2023 4:10 PM HIGH LIFT MULE OPERATOR 150 mg Right Dorsogluteal/Butto ck documented [...] Last Ordered Date First Ordered Date medroxyPROGESTERone (DEPO-DC OVERA) 150 mg/mL injection 150 mg 1 09/06/2023 documented in this encounter Care Teams Hop Farmer Relationship Specialty Start Date End Date Cortney Pineda NP [address] [place] [address] PCP - General 06/09/19 Bassem Cho MD [address] [facility] [place] [address] 12/20/18 documented as of this encounter
--- OUTSIDE RECORDS SUMMARY | 2024-10-21 04:44 | XMS_ITS | Encounter Summary ---
Author Organization [facility] Address [address] [facility] [address] [place] [address] Care Team Providers Care Mate Fishing Vessel Name Role Phone Bassem Cho MD Unavailable [phone] Cortney Pineda NP Primary Care Provider [phone] Reason for Visit * Reason Comments Thyroid Problem Encounter Details Date Type Department Care Team (Latest Contact Info) Description 06/27/2023 10:30 AM CDT Office Visit [facility] [address] [facility] [address] [address] [place] [address] [facility] [address] [address] Subclinical hypothyroidism (Primary Dx) Social History Tobacco [...] on file Legal Sex Female 6: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 01/07/2021 9:24 AM [...] 06/27/2023 10: 55 AM CDT Growth Chart: [facility] (Girls, 2- 20 Years) documented in this encounter Progress Notes * Dmitry Andres, Lauro Andres MD - 06/27/2023 10:30 AM CDT Images from the original note were not included. [facility] Consult Note Subjective/Objective Patient ID: Lexie Oconnell is a 17 y.o. adult Chief Complaint Thyroid Problem HPI Pt. Seen today in consultation for Abnormal thyroid function test , requested by PCP Cortney Pineda NP( Peds [facility]) Recently patient had some labs checked by [...] CDT) TSH 1.22 0.30 - 4.20 mcIUnit/mL [facility] Blood 06/27/2023 12:0 4 PM CDT 06/27/2023 6:57 PM CDT us Lauro Andres MD LAB BLOOD ORDERABLE S Final Result Performing Organization Address City/[facility]/ZIP Co de Phone Number KADE VAZQUEZ [address] [address] [place] [address] * Thyroid peroxidase antibody (TPO) (06/27/2023 12:04 PM CDT) Anti Thyroid Peroxidase <30 <=34 units/mL KADE VAZQUEZ Comment: ATPO Interpretive Data Results may be up to 28% higher in patients receiving Itraconazole. Current interpretive data was last revised 2020. Testing performed by: [facility], [address] [place]., [address] Blood 06/27/2023 12:0 4 PM CDT 06/28/2023 9:44 AM CDT us Lauro Andres MD LAB BLOOD ORDERABLE S Final Result Performing Organization Address [facility] Co de Phone Number KADE VAZQUEZ [address] [place] [address] documented in this encounter Visit Diagnoses Diagnosis Subclinical hypothyroidism- Primary Other specified acquired hypothyroidism documented in this encounter Historical Medications * This list may reflect changes made after this encounter. FLUoxetine (PROzac) 20 mg capsule Take 1 capsule (20 mg total) by mouth daily added in this encounter Care Teams Mate Fishing Vessel Relationship Specialty Start Date End Date Cortney Pineda [facility] [facility] [address] [place] [address] PCP - General 06/09/19 Bassem Cho MD [address] [facility] [address] [place] [address] 12/20/18 documented as of this encounter
--- OUTSIDE RECORDS SUMMARY | 2024-10-21 04:44 | XMS_ITS | Clinical Summary ---
Author Organization [facility] Address [address] [place] [address] Care Team Providers Care Telephone Service Adviser Name Role Phone Bassem Cho MD Unavailable [phone] Cortney Pineda NP Primary Care Provider [phone] Allergies Active Allergy Reactions Criticality Noted Date [...] on file Legal Sex Female 6:43 AM STEAM GENERATING POWERPLANT MECHANIC Gender Identity . 01/07/2021 9:24 AM [...] Comments Blood Pressure 145/83 08/27/2023 4:37 PM STEAM GENERATING POWERPLANT MECHANIC Pulse 113 08/27/2023 4:37 PM STEAM GENERATING POWERPLANT MECHANIC Temperature 36.8 ??C (98.2 ??F) 08/27/2023 4:37 PM CS T Respiratory Rate 20 08/27/2023 4:37 PM STEAM GENERATING POWERPLANT MECHANIC Oxygen Saturation 100% 07/05/2023 3:41 PM CDT Inhaled Oxygen Concentration - - Weight 92.9 kg (204 lb 12.8 oz) 08/27/2023 4:37 PM STEAM GENERATING POWERPLANT MECHANIC Height 163.3 cm (5' 4.29 ) 08/27/2023 4:37 PM CS T Body Mass Index 34.84 08/27/2023 4:37 PM STEAM GENERATING POWERPLANT MECHANIC Plan of Treatment Health Maintenance Due Date [...] Vaccine Completed 05/31/2021 , 06/29/2016, 06/29/2016 Insurance [facility] CHOICE [facility] HMO/PPO Address: [place] [id number] [facility] CHOICE [facility] H[facility]/PPO Address: [address] [place] [address] [facility] CHOICE [facility]US [facility] [facility] HMO/PPO Address: [address] [address] [place] [address] CHOICE PLUS [facility] HMO/PPO Address: [address] [address] [place] [address] [facility] CHOICE [facility] HMO/PPO Address: [address] [address] [place] [address] [facility] CHOICE [facility] HMO/PPO Address: [address] [address] [place] [phone] Advance Directives For more information, please contact: [phone] * Full Code (Latest Code Status on File) Date Activated Date Inactivated Comments 07/18/2018 11:11 PM 07/20/2018 6:22 PM Care Teams Telephone Service Adviser Relationship Specialty Start Date End Date Cortney Pineda, ENVIRONMENTAL HEALTH MANAGER [address] [place] [address] PCP - General 06/09/19 Bassem Cho MD [address] [place] [address] 12/20/18
--- OUTSIDE RECORDS SUMMARY | 2024-10-21 04:44 | XMS_ITS | Encounter Summary ---
Author Organization [facility] Healthcare Address [address] [place] [address] Care Team Providers Care Food Adviser Name Role Phone Bassem Cho MD Unavailable [phone] Cortney Pineda NP Primary Care Provider [phone] Reason for Referral * Diagnostic Imaging (Routine) - Closed Specialty Diagnoses / Procedures Referred By Contac t Referred To Contact Diagnoses Lower back pain Procedures XR Spine Lumbar 2 or 3 Views Cortney Pineda NP [address] [place] [address] Phone: tel: fax: [address] [address] Referral ID Status Reason Start Date Expiration Date Visits Re quested Visits Authorized [id number] Closed 02/16/2023 03/17/2024 1 1 Reason for Visit * Diagnostic Imaging (Routine) - Closed Specialty Diagnoses / Procedures Referred By Contac t Referred To Contact Diagnoses Lower back pain Procedures XR Spine Lumbar 2 or 3 Views Cortney Pineda NP [address] [place] [address] Phone: tel: fax: [address] [phone] Referral ID Status Reason Start Date Expiration Date Visits Re quested Visits Authorized [id number] Closed 02/16/2023 03/17/2024 1 1 Encounter Details Date Type Department Care Team (Latest Contact Info) Description 02/16/2023 4:35 PM CDT - 02/16/2023 11:59 PM CDT Hospital Encounter [facility] [address] [place] [address] Lower back pain Discharge Disposition: Discharge to [...] on file Legal Sex Female 6:43 AM ANALYTICS DEVELOPER Gender Identity . 01/07/2021 9:24 AM [...] ??spine. COMPARISON: 01/09/2023. FINDINGS: There are 5 jcp-cpv-[id number] lumbar vertebral bodies. ??There is preservation of vertebral body height with no acute fracture. ??Trivial facet arthropathy L5-S1. ??Minimal multilevel disc space narrowing. ??Soft tissues are unremarkable. IMPRESSION: No acute fracture. Minimal spondylosis as above. THIS IS AN ELECTRONICALLY VERIFIED FINAL REPORT 02/18/2023 12:43 PM - Electronically signed by ??Denny Kennedy M.D. MJ D: ??02/18/2023 12:43 PM T: Report ID: [id number] Reading Location: ??[id number] Procedure Note Denny Kennedy MD - 02/18/2023 EXAM DESCRIPTION: XR SPINE LUMBAR 2 OR 3 VIEWS REASON FOR STUDY: Lower back pain Pt sts: lower back pain that radiates to ribs and down to knees X couple months, started physical therapy today, no injury TECHNIQUE: 3 radiographic view(s) of the lumbar spine. COMPARISON: 01/09/2023. FINDINGS: There are 5 igf-fza-enhsbeg lumbar vertebral bodies. There is preservation of vertebral body height with no acute fracture. Trivialfacet arthropathy L5-S1. Minimal multilevel disc space narrowing. Soft tissuesare unremarkable. IMPRESSION: No acute fracture. Minimal spondylosis as above. THIS IS AN ELECTRONICALLY VERIFIED FINAL REPORT 02/18/2023 12:43 PM - Electronically signed by Denny RehmanD. MJ T: Report ID: [id number] Reading Location: [id number] Cortney Pineda PAPER STACKER IMG XR PROCEDURES Final Result documented in this encounter Visit Diagnoses Diagnosis Lower back pain Lumbago documented in this encounter Care Teams Food Adviser Relationship Specialty Start Date End Date Cortney Pineda, PAPER STACKER [address] [facility] [place] [address] PCP - General 06/09/19 Bassem Cho MD [address] [facility] [address] [place] [address] 12/20/18 documented as of this encounter
--- OUTSIDE RECORDS SUMMARY | 2024-10-21 04:44 | XMS_ITS | Encounter Summary ---
Author Organization [facility] Address [address] [place] [address] Phone Care Team Providers Care Pricing Associate Name Role Phone Bassem Cho MD Unavailable [phone] Cortney Pineda NP Primary Care Provider [phone] Reason for Visit * Reason Onset Date Comments OT Discharge 10/23/2022 Encounter Details Date Type Department Care Team (Late st Contact Info) Description 10/23/2022 Documentation [facility] Occupational Therapy [address] [place] [address] Vicky Ramachandran, OT [address] [place], [place] [id number] OT Discharge Social History Tobacco Use Types Packs/Day Years Used Date Smoking Tobacco: Never Smokeless Tobacco: Never Alcohol Use Standard Drinks/Week Comments No 0 (1 standard drink = 0.6 oz pur e alcohol) PHQ-2 Answer Date Recorded PHQ-2 TOTAL SCORE 3 09/07/2022 Comments No Sex and Gender Information Value Date Recorded Sex Assigned at Not on file Legal Sex Female 6:43 AM SENIOR PACKAGING ENGINEER Gender Identity . 01/07/2021 9:24 AM [...] attain ear plugs 2/2 family financial situation. Burns of new accommodations. Accommodations id are: Allow [...] may still be needed Advocate to special stained glass joiner to ask for teacher notes Trial sunglasses [...] (creating CR 3 steps) Partially Achieved (10/23/2022) Fpc Goals: Goals Status 1. Ct will walk up or down stairs with management of FND LE weakness symptoms, 70% of the time on 3/4 wk's within 6 mths. Met on 1/2 sessions. Partially Achieved (10/23/2022) 2. Ct will walk in community setting (i.e. store, tenriism peer groups, school) with management of FND [...] discontinue occupational therapy treatment. Vicky Ramachandran OT OR PACKAGING ENGINEER documented in this encounter Plan of Treatment Not on file documented as of this encounter Visit Diagnoses Diagnosis Functional neurological symptom disorder with abnormal movement- Primary Anxiety Anxiety state, unspecified Bipolar 1 disorder, Anxiety Tic disorder Tic disorder, unspecified documented in this encounter Care Teams Pricing Associate Relationship Specialty Start Date End Date Cortney Pineda NP [address] [facility] [place] [address] PCP - General 06/09/19 Bassem Cho MD [address] [facility] [address] [place] [address] 12/20/18 documented as of this encounter
--- OUTSIDE RECORDS SUMMARY | 2024-10-21 04:44 | XMS_ITS | Encounter Summary ---
Author Organization [facility] Address [address] [place] [address] Phone Care Team Providers Care Computer Forwarding System Markup Clerk Name Role Phone Bassem Cho MD Unavailable [phone] Cortney Pineda NP Primary Care Provider [phone] Vicky Ramachandran OT Unavailable [phone] Reason for Visit * Reason Onset Date Comments lab draw reminder call 10/18/2022 Encounter Details Date Type Department Care Team (Late st Contact Info) Description 10/18/2022 Telephone [facility] Adolescent [facility] 2nd [place] [address] [place] [address] Malathi Will RN [address] [place] [address] lab draw reminder call Social History Tobacco [...] on file Legal Sex Female 6:43 AM BOARDING KENNEL OR CATTERY OPERATOR Gender Identity . 01/07/2021 9:24 AM CDT Sexual Orientation Not on file documented as of this encounter Miscellaneous Notes * Telephone Encounter - Malathi Will RN - 10/25/2022 12:32 PM BOARDING KENNEL OR CATTERY OPERATOR RN left patient's mother 2nd voicemail message asking patient to return call to discuss lab orders. DING KENNEL OR CATTERY OPERATOR DING KENNEL OR CATTERY OPERATOR * Telephone Encounter - Malathi Will RN - 10/18/2022 1:43 PM BOARDING KENNEL OR CATTERY OPERATOR RN left patient's mother voicemail message asking patient to return RN call. Patient is 17 and we do not have contact number for patient. Labs were ordered at [facility] and have not yet been drawn. Reminder call. Recommend paramedic rn lab draw. DING KENNEL OR CATTERY OPERATOR documented in this encounter Plan of Treatment Not on file documented as of this encounter Visit Diagnoses Not on filedocumented in this encounter Care Teams Computer Forwarding System Markup Clerk Relationship Specialty Start Date End Date Cortney Pineda NP [address] [facility] [place] [address] PCP - General 06/09/19 Bassem Cho MD [address] [facility] [address] [place] [address] 12/20/18 Vicky Ramachandran OT [address] [place] [address] Occupational Therapist Occupational Therapy 04/19/21 documented as of this encounter
--- OUTSIDE RECORDS SUMMARY | 2024-10-21 04:44 | XMS_ITS | Referral Summary ---
Author Organization [facility] Address [address] [place] [address] Care Team Providers Care Secondary School Principal Name Role Phone Bassem Cho MD Unavailable [phone] Cortney Pineda NP Primary Care Provider [phone] Allergies Active Allergy Reactions Criticality Noted Date [...] on file Legal Sex Female 6:43 AM BOOSTER PLANT OPERATOR Gender Identity . 01/07/2021 9:24 AM CDT Sexual Orientation Not on file Last Filed Vital Signs Vital Sign Reading Time Taken Comments Blood Pressure 145/83 08/27/2023 4:37 PM BOOSTER PLANT OPERATOR Pulse 113 08/27/2023 4:37 PM BOOSTER PLANT OPERATOR Temperature 36.8 ??C (98.2 ??F) 08/27/2023 4:37 PM CS T Respiratory Rate 20 08/27/2023 4:37 PM BOOSTER PLANT OPERATOR Oxygen Saturation 100% 07/05/2023 3:41 PM CDT Inhaled Oxygen Concentration - - Weight 92.9 kg (204 lb 12.8 oz) 08/27/2023 4:37 PM BOOSTER PLANT OPERATOR Height 163.3 cm (5' 4.29 ) 08/27/2023 4:37 PM CS T Body Mass Index 34.84 08/27/2023 4:37 PM BOOSTER PLANT OPERATOR Plan of Treatment Not on file Insurance [facility] CHOICE PLUS [facility] CHOICE PLUS [facility] CHOICE PLUS [facility] CHOICE PLUS [facility] CHOICE PLUS [facility] CHOICE PLUS Advance Directives For more information, please contact: [phone] * Full Code (Latest Code Status on File) Date Activated Date Inactivated Comments 07/18/2018 11:11 PM 07/20/2018 6:22 PM Care Teams Secondary School Principal Relationship Specialty Start Date End Date Cortney Pineda, SOCK EXAMINER [address] [place] [address] PCP - General 06/09/19 Bassem Cho MD [address] [facility] [address] [place] [address] 12/20/18
--- OUTSIDE RECORDS SUMMARY | 2024-10-21 04:44 | XMS_ITS | Encounter Summary ---
Author Organization [facility] Address [address] [place] [address] Phone Care Team Providers Care Missile Inspector Name Role Phone Bassem Cho MD Unavailable [phone] Cortney Pineda NP Primary Care Provider [phone] Encounter Details Date Type Department Care Team (Late st Contact Info) Description 08/27/2023 4:30 PM EMERGENCY MANAGEMENT SYSTEM DIRECTOR Office Visit [facility] Pediatric Neurology [address] [place] [address] Negrita Pride MD PhD [address] [place] [address] Chronic migraine without aura without status migrainosus, [...] on file Legal Sex Female 6:43 AM EMERGENCY MANAGEMENT SYSTEM DIRECTOR Gender Identity . 01/07/2021 9:24 AM CDT Sexual Orientation Not on file documented as of this encounter Last Filed Vital Signs Vital Sign Reading Time Taken Comments Blood Pressure 145/83 08/27/2023 4:37 PM EMERGENCY MANAGEMENT SYSTEM DIRECTOR Pulse 113 08/27/2023 4:37 PM EMERGENCY MANAGEMENT SYSTEM DIRECTOR Temperature 36.8 ??C (98.2 ??F) 08/27/2023 4:37 PM CS T Respiratory Rate 20 08/27/2023 4:37 PM EMERGENCY MANAGEMENT SYSTEM DIRECTOR Oxygen Saturation - - Inhaled Oxygen Concentration - - Weight 92.9 kg (204 lb 12.8 oz) 08/27/2023 4:37 PM EMERGENCY MANAGEMENT SYSTEM DIRECTOR Height 163.3 cm (5' 4.29 ) 08/27/2023 4:37 PM CS T Body Mass Index 34.84 08/27/2023 4:37 PM EMERGENCY MANAGEMENT SYSTEM DIRECTOR documented in this encounter Ordered Prescriptions Prescription [...] from the original note were not included. [facility] Patient Name: LEXIE NUR Medical Record Number (MRN): [id number] Date of (): 2005 Encounter Date: 08/27/2023 [...] the family. She had 4 hospitalizations over [phone]. Mood has been worse with mood swings [...] that she struggles to make friends and pepper picker on social cues. She feels that [...] [facility] 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 Past Medical History: Diagnosis Date [...] reflex flexor bilaterally. Coordination: No dysmetria on xonbtb-nl-[id number] bilaterally Gait: deferred, previously Narrow base, steady. [...] questions, feel free to contact me at [phone]. I have provided the family with contact [...] the patient. Sincerely, Negrita Pride MD PhD [facility] Division of Pediatric Neurology Cerebral Palsy and Movement Disorders Section Director, Pediatric Deep Brain Stimulation Program GENCY MANAGEMENT SYSTEM DIRECTOR documented in this encounter Plan of Treatment [...] documented as of this encounter Care Teams Missile Inspector Relationship Specialty Start Date End Date Cortney Pineda, MOP HANDLE ASSEMBLER [address] [place] [address] PCP - General 06/09/19 Bassem Cho MD [address] [facility] [place] [address] 12/20/18 documented as of this encounter
--- OUTSIDE RECORDS SUMMARY | 2024-10-21 04:44 | XMS_ITS | Encounter Summary ---
Author Organization [facility] Address [address] [place] [address] Phone Care Team Providers Care Cancer Spec Name Role Phone Bassem Cho MD Unavailable [phone] Cortney Pineda NP Primary Care Provider Encounter Details Date Type Department Care Team (Late st Contact Info) Description 09/12/2023 Telephone [facility] Pediatric Neurology [address] [place] [address] Negrita Pride MD PhD [id number] [place] [address] Social History Tobacco Use Types Packs/Day Years [...] on file Legal Sex Female 6:43 AM MUMPS DEVELOPER Gender Identity . 01/07/2021 9:24 AM CDT Sexual Orientation Not on file documented as of this encounter Miscellaneous Notes * Telephone Encounter - Crisostomo, Selina, CLOTH WINDING SUPERVISOR - 09/12/2023 1:02 PM CST Fax received from: [facility] Requesting: Chart notes Completed and faxed, scanned into chart S DEVELOPER documented in this encounter Plan of Treatment Not on file documented as of this encounter Visit Diagnoses Not on filedocumented in this encounter Care Teams Cancer Spec Relationship Specialty Start Date End Date Cortney Pineda, GASKET INSPECTOR [address] [facility] [place] [address] PCP - General 06/09/19 Bassem Cho MD [address] [facility] [place] [address] 12/20/18 documented as of this encounter
--- OUTSIDE RECORDS SUMMARY | 2024-10-21 04:44 | XMS_ITS | Encounter Summary ---
Author Organization [facility] Healthcare Address [address] [place] [address] Care Team Providers Care Acoustical Tile Carpenters Supervisor Name Role Phone Bassem Cho MD Unavailable [phone] Cortney Pineda NP Primary Care Provider [phone] Reason for Visit * Reason Comments Animal Bite Encounter Details Date Type Department Care Team (Late st Contact Info) Description 07/05/2023 5:12 PM CDT - 07/05/2023 6:29 PM CDT Emergency [address] [address] Dog bite of left knee, initial encounter [...] on file Legal Sex Female 6:43 AM ENGRAVER BLOCK Gender Identity . 01/07/2021 9:24 AM CDT [...] 07/05/2023 3:4 1 PM CDT Growth Chart: [facility] (Girls, 2- 20 Years) documented in this encounter Discharge Instructions * Discharge Instructions* Robby Antohny PA - 07/05/2023 6:18 PM CDT Thank [...] Care Everywhere. * Animal Bite (AfterCare(R) Instructions(ER/ED)) (Ukrainian) documented in this encounter Medications at Time [...] ED with complaints of dog bite to [facility] that happened just prior to arrival. States [...] improved condition. JESE Christiansen-C Follow Up Information [address] [address] Go to As needed, If symptoms worsen Cortney Pineda, RESIN REMOVER [address] [facility] [id number] Go to If symptoms worsen This note was transcribed using the iDubba voice recognition system without human orthophotography technician. In an effort to expedite patient care, this report has not been adjusted for typographical, grammatical, and syntax by a trained biomedical electronics technician. Please ignore any minor grammatical mistakes. Robby [...] RN) documented in this encounter Care Teams Acoustical Tile Carpenters Supervisor Relationship Specialty Start Date End Date Cortney Pineda NP [address] [place] [address] PCP - General 06/09/19 Bassem Cho MD [address] [facility] [address] [place] [address] 12/20/18 documented as of this encounter
--- OUTSIDE RECORDS SUMMARY | 2024-10-21 04:44 | XMS_ITS | Encounter Summary ---
Author Organization [facility] Healthcare Address [address] [place] [address] Care Team Providers Care Dryland Farmer Name Role Phone Bassem Cho MD Unavailable [phone] Cortney Pineda NP Primary Care Provider [phone] Encounter Details Date Type Department Care Team (Late st Contact Info) Description 06/27/2023 11:45 AM CDT Lab [address] [address] Subclinical hypothyroidism Social History Tobacco [...] on file Legal Sex Female 6:43 AM EXTERN Gender Identity . 01/07/2021 9:24 AM CDT [...] CDT) Anti Thyroid Peroxidase <30 <=34 units/mL [facility] Comment: ATPO Interpretive Data Results may be up to 28% higher in patients receiving Itraconazole. Current interpretive data was last revised 2020. Testing performed by: [facility], [address] [facility], [place]., [address] Blood 06/27/2023 12:0 4 PM CDT 06/28/2023 9:44 AM CDT us Lauro Andres MD LAB BLOOD ORDERABLE S Final Result [facility] [address] Department of Laboratories [place], [place] [id number] * TSH reflex to free T4 (06/27/2023 12:04 PM CDT) TSH 1.22 0.30 - 4.20 mcIUnit/mL [facility] Blood 06/27/2023 12:0 4 PM CDT 06/27/2023 6:57 PM CDT us Lauro Andres MD LAB BLOOD ORDERABLE S Final Result [facility] [address] Department of [facility] [place], [place] [id number] documented in this encounter Visit Diagnoses Diagnosis Subclinical hypothyroidism Other specified acquired hypothyroidism documented in this encounter Care Teams Dryland Farmer Relationship Specialty Start Date End Date Cortney Pineda NP [address] [place] [address] PCP - General 06/09/19 Bassem Cho MD [address] [facility] [address] [place] [address] 12/20/18 documented as of this encounter
--- OUTSIDE RECORDS SUMMARY | 2024-10-21 04:44 | XMS_ITS | Encounter Summary ---
Author Organization [facility] Address [address] [place] [address] Phone Care Team Providers Care Tinner Helper Name Role Phone Bassem Cho MD Unavailable [phone] Cortney Pineda NP Primary Care Provider [phone] Reason for Referral * Medication Authorization (Routine) - Closed Specialty Diagnoses / Procedures Referred By Contac t Referred To Contact Diagnoses Encounter for management and injection of depo-Provera Jimena Lim MD [address] [place] [address] Phone: tel: fax: Referral ID Status Reason Start Date Expiration Date Visits Re quested Visits Authorized [id number] Closed 12/28/2022 01/27/2024 6 6 Reason for Visit * Medication Authorization (Routine) - Closed Specialty Diagnoses / Procedures Referred By Contac t Referred To Contact Diagnoses Encounter for management and injection of depo-Provera Jimena Lim MD [address] [place] [address] Phone: tel: fax: Referral ID Status Reason Start Date Expiration Date Visits Re quested Visits Authorized [id number] Closed 12/28/2022 01/27/2024 6 6 Encounter Details Date Type Department Care Team (Late st Contact Info) Description 12/28/2022 11:30 AM CDT Office Visit [facility] Pediatrics [address] [facility] [address] [place] [address] Jmiena Lim MD [address] [place] [address] Encounter for management and injection of depo-Provera [...] on file Legal Sex Female 6:43 AM TRAFFIC ATTENDANT Gender Identity . 01/07/2021 9:24 AM CDT [...] CDT) HCG, ur, POC Negative Lot Number [id number] QC Backgroud Clear Acceptable QC Control Line [...] 60mg added in this encounter Care Teams Tinner Helper Relationship Specialty Start Date End Date Cortney Pineda NP [address] [place] [address] PCP - General 06/09/19 Bassem Cho MD [address] [facility] [address] [place] [address] 12/20/18 documented as of this encounter
--- OUTSIDE RECORDS SUMMARY | 2024-10-21 04:44 | XMS_ITS | Encounter Summary ---
Author Organization [facility] Address [address] [place] [address] Phone Care Team Providers Care Rodeo Rider Name Role Phone Bassem Cho MD Unavailable [phone] Cortney Pineda NP Primary Care Provider [phone] Reason for Visit * Reason Onset Date Comments Lab Results 12/18/2022 Encounter Details Date Type Department Care Team (Late st Contact Info) Description 12/18/2022 Telephone [facility] 2nd [place] [address] [place] [address] Jayashree Davila RN Lab Results [...] on file Legal Sex Female 6:43 AM LEADER WRITER Gender Identity . 01/07/2021 9:24 AM CDT [...] on filedocumented in this encounter Care Teams Rodeo Rider Relationship Specialty Start Date End Date Cortney Pineda, AUTOMATIC COIN MACHINE MECHANIC [address] [place] [address] PCP - General 06/09/19 Bassem Cho MD [address] [facility] [address] [place] [address] 12/20/18 documented as of this encounter
--- OUTSIDE RECORDS SUMMARY | 2024-10-21 04:44 | XMS_ITS | Encounter Summary ---
Author Organization [facility] Healthcare Address [address] [place] [address] Care Team Providers Care Dry Wall Installations Mechanic Name Role Phone Bassem Cho MD Unavailable [phone] Cortney Pineda NP Primary Care Provider [phone] Reason for Referral * Diagnostic Imaging (Routine) - Closed Specialty Diagnoses / Procedures Referred By Contac t Referred To Contact Diagnoses Right knee pain, unspecified chronicity Left knee pain, unspecified chronicity Procedures XR Knee Left 3 Views Palmira Butler PA [address] [place] [address] Phone: tel: fax: [address] [address] Referral ID Status Reason Start Date Expiration Date Visits Re quested Visits Authorized [id number] Closed 08/15/2023 09/13/2024 1 1 REPAIRER Reason for Visit * Diagnostic Imaging (Routine) - Closed Specialty Diagnoses / Procedures Referred By Contdorian t Referred To Contact Diagnoses Right knee pain, unspecified chronicity Left knee pain, unspecified chronicity Procedures XR Knee Left 3 Views Palmira Butler PA [address] [facility] [address] [place] [address] Phone: tel: fax: [address] [place] [address] Referral ID Status Reason Start Date Expiration Date Visits Re quested Visits Authorized [id number] Closed 08/15/2023 09/13/2024 1 1 Encounter Details Date Type Department Care Team (Latest Contact Info) Description 08/15/2023 2:24 PM SACK REPAIRER - 08/15/2023 11:59 PM SACK REPAIRER Hospital Encounter [facility] Diagnostic Imaging [address] [place] [address] Right knee pain, unspecified chronicity; Left knee [...] on file Legal Sex Female 6:43 AM SACK REPAIRER Gender Identity . 01/07/2021 9:24 AM CDT [...] Read Routine (OP Routine) 08/15/2023 2:49 PM SACK REPAIRER Right knee pain, unspecified chronicity Left knee pain, unspecified chronicity documented in this encounter Results * XR Knee Left 3 Views (08/15/2023 2:49 PM SACK REPAIRER) Anatomical Region Laterality Modality Lower Extremities, Knee Left Computed Radiography 08/16/2023 10:3 5 AM SACK REPAIRER Narrative 08/16/2023 10:39 AM SACK REPAIRER EXAM DESCRIPTION: XR KNEE LEFT 3 VIEWS; [...] D: ??08/16/2023 10:39 AM T: Report ID: [id number] Reading Location: [id number] Procedure Note Denny Kennedy MD - 08/16/2023 [...] signed by Denny SANCHEZ T: Report ID: [id number] Reading Location: [id number] Palmira [facility]WANT IMG XR PROCEDURES Final Re sult documented in this encounter Visit Diagnoses Diagnosis Right knee pain, unspecified chronicity Left knee pain, unspecified chronicity documented in this encounter Care Teams Dry Wall Installations Mechanic Relationship Specialty Start Date End Date Cortney Pineda NP [address] [place] [address] PCP - General 06/09/19 Bassem Cho MD [address] [facility] [address] [place] [address] 12/20/18 documented as of this encounter
--- OUTSIDE RECORDS SUMMARY | 2024-10-21 04:44 | XMS_ITS | Encounter Summary ---
Author Organization [facility] Address [address] [place] [address] Phone Care Team Providers Care Field Sales Trainer Name Role Phone Bassem Cho MD Unavailable [phone] Cortney Pineda NP Primary Care Provider [phone] Reason for Referral * Medication Authorization (Routine) - Closed Specialty Diagnoses / Procedures Referred By Contac t Referred To Contact Diagnoses Encounter for management and injection of depo-Provera Jimena Lim MD [address] [place] [address] Phone: tel: fax: Referral ID Status Reason Start Date Expiration Date Visits Re quested Visits Authorized [id number] Closed 03/22/2023 04/20/2024 6 6 Reason for Visit * Medication Authorization (Routine) - Closed Specialty Diagnoses / Procedures Referred By Contac t Referred To Contact Diagnoses Encounter for management and injection of depo-Provera Jimena Lim MD 1 [place] [address] Phone: tel: fax: Referral ID Status Reason Start Date Expiration Date Visits Re quested Visits Authorized [id number] Closed 03/22/2023 04/20/2024 6 6 Encounter Details Date Type Department Care Team (Late st Contact Info) Description 03/22/2023 11:30 AM CDT Office Visit [facility] Pediatrics [address] [facility] [address] [place] [address] Jimena Lim MD [address] [place] [address] Encounter for management and injection of depo-Provera [...] on file Legal Sex Female 6:43 AM RELIGION PROFESSOR Gender Identity . 01/07/2021 9:24 AM CDT [...] Route intramuscular Administered By Susie Linares Michelle iLm MD, MPH documented in this encounter Plan [...] ck documented in this encounter Care Teams Field Sales Trainer Relationship Specialty Start Date End Date Cortney Pineda NP [address] [place] [address] PCP - General 06/09/19 Bassem Cho MD [address] [facility] [address] [place] [address] 12/20/18 documented as of this encounter
--- OUTSIDE RECORDS SUMMARY | 2024-10-21 04:44 | XMS_ITS | Encounter Summary ---
Author Organization [facility] Healthcare Address [address] [place] [address] Care Team Providers Care Technical Administrator Name Role Phone Bassem Cho MD Unavailable [phone] Cortney Pineda NP Primary Care Provider [phone] Reason for Referral * Diagnostic Imaging (Routine) - Closed Specialty Diagnoses / Procedures Referred By Contac t Referred To Contact Diagnoses Left ankle pain, unspecified chronicity Procedures XR Ankle Left 3 or More Views Palmira Butler PA [address] [facility] [address] [place] [address] Phone: tel: fax: [address] [phone] Referral ID Status Reason Start Date Expiration Date Visits Re quested Visits Authorized [id number] Closed 11/20/2023 12/19/2024 1 1 C INSTRUCTOR Reason for Visit * Diagnostic Imaging (Routine) - Closed Specialty Diagnoses / Procedures Referred By Contac t Referred To Contact Diagnoses Left ankle pain, unspecified chronicity Procedures XR Ankle Left 3 or More Views Palmira Butler PA 497[facility] [address] [place] [address] Phone: tel: fax: [address] [address] Referral ID Status Reason Start Date Expiration Date Visits Re quested Visits Authorized [id number] Closed 11/20/2023 12/19/2024 1 1 Encounter Details Date Type Department Care Team (Latest Contact Info) Description 11/20/2023 4:14 PM MUSIC INSTRUCTOR - 11/20/2023 11:59 PM MUSIC INSTRUCTOR Hospital Encounter [facility] Diagnostic Imaging [address] [place] [address] Left ankle pain, unspecified chronicity; Right ankle [...] on file Legal Sex Female 6:43 AM MUSIC INSTRUCTOR Gender Identity . 01/07/2021 9:24 AM [...] Read Routine (OP Routine) 11/20/2023 4:31 PM MUSIC INSTRUCTOR Right ankle pain, unspecified chronicity XR ANKLE LEFT 3 OR MORE VIEWS Schedule Routine, Read Routine (OP Routine) 11/20/2023 4:31 PM MUSIC INSTRUCTOR Left ankle pain, unspecified chronicity documented in this encounter Results * XR Ankle Right 3 or More Views (11/20/2023 4:31 PM MUSIC INSTRUCTOR) Anatomical Region Laterality Modality Lower Extremities, Ankle Right Compute d Radiography 11/21/2023 10:5 3 AM MUSIC INSTRUCTOR Narrative 11/21/2023 10:55 AM MUSIC INSTRUCTOR EXAM DESCRIPTION: XR ANKLE LEFT 3 OR [...] D: ??11/21/2023 10:55 AM T: Report ID: [id number] Reading Location: ??[id number] Procedure Note Denny Daniel MD - 11/21/2023 [...] by Denny Daniel M.D. T: Report ID: [id number] Reading Location: [id number] Palmira SAWANT IMG XR PROCEDURES Final Re sult * XR Ankle Left 3 or More Views (11/20/2023 4:31 PM MUSIC INSTRUCTOR) Anatomical Region Laterality Modality Lower Extremities, Ankle Left Compute d Radiography 11/21/2023 10:5 3 AM MUSIC INSTRUCTOR Narrative 11/21/2023 10:55 AM MUSIC INSTRUCTOR EXAM DESCRIPTION: XR ANKLE LEFT 3 OR [...] D: ??11/21/2023 10:55 AM T: Report ID: [id number] Reading Location: ??[id number] Procedure Note Denny Daniel MD - 11/21/2023 [...] by Denny Daniel M.D. T: Report ID: [id number] Reading Location: [id number] Palmira SAWANT IMG XR PROCEDURES Final Re sult documented in this encounter Visit Diagnoses Diagnosis Left ankle pain, unspecified chronicity Right ankle pain, unspecified chronicity documented in this encounter Care Teams Technical Administrator Relationship Specialty Start Date End Date Cortney Pineda NP [address] [place] [address] PCP - General 06/09/19 Bassem Cho MD [address] [facility] [address] [place] [address] 12/20/18 documented as of this encounter
--- OUTSIDE RECORDS SUMMARY | 2024-10-21 04:44 | XMS_ITS | Encounter Summary ---
Author Organization [facility] Healthcare Address [address] [place] [address] Care Team Providers Care Logistics Technician Name Role Phone Bassem Cho MD Unavailable [phone] Cortney Pineda NP Primary Care Provider [phone] Reason for Referral * Diagnostic Imaging (Routine) - Closed Specialty Diagnoses / Procedures Referred By Contac t Referred To Contact Diagnoses Right knee pain, unspecified chronicity Left knee pain, unspecified chronicity Procedures XR Knee Right 3 Views Palmira Butler PA [address] [place] [address] Phone: tel: fax: [address] [phone] Referral ID Status Reason Start Date Expiration Date Visits Re quested Visits Authorized [id number] Closed 08/15/2023 09/13/2024 1 1 ER OF CONGRESS Reason for Visit * Diagnostic Imaging (Routine) - Closed Specialty Diagnoses / Procedures Referred By Contdorian t Referred To Contact Diagnoses Right knee pain, unspecified chronicity Left knee pain, unspecified chronicity Procedures XR Knee Right 3 Views Palmira Butler PA [address] [facility] [address] [place] [address] Phone: tel: fax: [address] [place] [address] Referral ID Status Reason Start Date Expiration Date Visits Re quested Visits Authorized [id number] Closed 08/15/2023 09/13/2024 1 1 Encounter Details Date Type Department Care Team (Latest Contact Info) Description 08/15/2023 2:24 PM MEMBER OF CONGRESS - 08/15/2023 11:59 PM MEMBER OF CONGRESS Hospital Encounter [facility] Diagnostic Imaging [address] [place] [address] Right knee pain, unspecified chronicity; Left knee [...] on file Legal Sex Female 6:43 AM MEMBER OF CONGRESS Gender Identity . 01/07/2021 9:24 AM CDT [...] Read Routine (OP Routine) 08/15/2023 2:50 PM MEMBER OF CONGRESS Right knee pain, unspecified chronicity Left knee pain, unspecified chronicity documented in this encounter Results * XR Knee Right 3 Views (08/15/2023 2:50 PM MEMBER OF CONGRESS) Anatomical Region Laterality Modality Lower Extremities, Knee Right Computed Radiography 08/16/2023 10:3 5 AM MEMBER OF CONGRESS Narrative 08/16/2023 10:39 AM MEMBER OF CONGRESS EXAM DESCRIPTION: XR KNEE LEFT 3 VIEWS; [...] D: ??08/16/2023 10:39 AM T: Report ID: [id number] Reading Location: ??[id number] Procedure Note Denny Kennedy MD - 08/16/2023 [...] signed by Denny SANCHEZ T: Report ID: [id number] Reading Location: [id number] Palmira SAWANT IMG XR PROCEDURES Final Re sult documented in this encounter Visit Diagnoses Diagnosis Right knee pain, unspecified chronicity Left knee pain, unspecified chronicity documented in this encounter Care Teams Logistics Technician Relationship Specialty Start Date End Date Cortney Pineda NP [address] [place] [address] PCP - General 06/09/19 Bassem Cho MD [address] [facility] [address] [place] [address] 12/20/18 documented as of this encounter
--- OUTSIDE RECORDS SUMMARY | 2024-10-21 04:44 | XMS_ITS | Encounter Summary ---
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 01/07/2021 9:24 AM [...] 01/09/2023 7:3 2 AM CDT Growth Chart: [facility] (Girls, 2- 20 Years) [...] Urinary Tract Infection in Children (AfterCare(R) Instructions(ER/ED)) (Mohawk) documented in this encounter Medications at Time [...] tendency for uric acid stone formation. Source: [employer] [place].Last revised 10-11-2017 URINALYSIS, MICROSCOPIC ONLY - Abnormal [...] improved condition. HUMBERTO ChristiansenC Follow Up Information [address] [address] Go to As needed, If symptoms worsen Cortney Pineda, CLINICAL REHABILITATION LIAISON [address] [facility] [address] Go to If symptoms worsen This note was transcribed using the [email or web address] voice recognition system without human skin installer. In an effort to expedite patient care, this report has not been adjusted for typographical, grammatical, and syntax by a trained biomedical engineering professor. Please ignore any minor grammatical mistakes. Robby [...] D: ??01/09/2023 9:39 AM T: Report ID: [id number] Reading Location: ??[id number] Procedure Note Matthew Medrano MD - 01/09/2023 [...] signed by Matthew HERNANDEZ T: Report ID: [id number] Reading Location: [id number] Robby SAWANT IMG XR PROCEDURES Final Re [...] laboratory. KADE BUSTILLO Comment:Testing performed by : [facility], [address] [facility], [place]., [address] Organism GROWTH INDICATES CONTAM WITH PERIURETHRAL [place]. [facility] Urine 01/09/2023 8:00 AM CDT 01/09/2023 1:23 PM CDT Narrative [facility] - 01/10/2023 5:13 PM CDT Urine culture reflexed based upon urinalysis results. Testing performed by [facility] Microbiology Laboratory ([phone]) Robby Anthony [place] LAB MICROBIOLOGY - GENERAL ORDERABLES Edited Result - Final Performing Organization Address [facility] Co de Phone Number [address] [place] [address] * (ABNORMAL) Urinalysis, microscopic only (01/09/2023 8:00 AM CDT) WBC, ur 21-50(A) 0 - 5 /HPF [facility] RBC, ur 6-10(A) 0 - 2 /HPF [facility] Epithelial cells, squamous, ur 1-5 0 - 5 /HPF [facility] Mucous, ur Present(A) [facility] Culture Reflex Comment Reflex to urine culture will be performed. KADE Urine 01/09/2023 8:00 AM CDT 01/09/2023 8:04 AM CDT Robby Anthony [place] LAB URINE ORDERABLES Final Result Performing Organization Address [facility] Co de Phone Number [address] [address] * (ABNORMAL) Urinalysis reflex to microscopic and culture Urine (01/09/2023 8:00 AM CDT) Color, ur Lola Yellow [facility] Clarity, ur Cloudy(A) Clear [facility] Specific gravity, ur 1.031(H) 1.003 - 1.030 [facility] pH, urine 5.0 [facility] Protein, ur ql 1+(A) Negative [facility] Glucose, ur ql Negative Negative [facility] Ketones, ur Trace Negative [facility] Bilirubin, ur Negative Negative [facility] Blood, ur Negative Negative [facility] Urobilinogen, ur 2.0(A) <2.0 mg/dL [facility] Nitrite, ur Negative Negative [facility] Leukocyte esterase, ur 1+(A) Negative [facility] UA reflex comment Reflex to microscopic UA will be performed. [facility] Urine 01/09/2023 8:00 AM CDT 01/09/2023 8:04 AM CDT Narrative [facility] - 01/09/2023 8:12 AM CDT ?? Urine pH is affected by diet, medications, systemic acid-base disturbances, and renal tubular function. ??pH may affect urinary stone formation. ??For example, urine pH below 6.0 may help reduce the tendency for calcium phosphate stones and pH greater than 6.0 may reduce the tendency for uric acid stone formation. Source: [employer] [place]. Last revised 10-11-2017 Robby [facility]WANT LAB MICROBIOLOGY - GENERAL ORDERABLES Final Result [facility] [address] [facility] Department [place] [address] documented in this encounter Visit [...] RN) documented in this encounter Care Teams Ase Certified Technician Relationship Specialty Start Date End Date Cortney Pineda, CLINICAL REHABILITATION LIAISON [address] [place] [address] PCP - General 06/09/19 Bassem Cho MD [address] [facility] [address] [place] [address] 12/20/18 documented as of this encounter
--- OUTSIDE RECORDS SUMMARY | 2024-10-21 04:44 | XMS_ITS | Encounter Summary ---
Author Organization [facility] Address [address] [place] [address] Phone Care Team Providers Care Executive Assistant To President Name Role Phone Bassem Cho MD Unavailable [phone] Cortney Pineda NP Primary Care Provider Reason for Referral * Medication Authorization (Routine) - Closed Specialty Diagnoses / Procedures Referred By Contac t Referred To Contact Adolescent Medicine Diagnoses Encounter for management and injection of depo-Provera Jimena Lim MD [address] [place] [address] Phone: tel: fax: Referral ID Status Reason Start Date Expiration Date Visits Re quested Visits Authorized [id number] Closed 06/20/2023 09/30/2024 6 6 Reason for Visit * Medication Authorization (Routine) - Closed Specialty Diagnoses / Procedures Referred By Contdorian richard Referred To Contact Diagnoses Encounter for management and injection of depo-Provera Jimena Lim MD [address] [place] [address] Phone: tel: fax: Referral ID Status Reason Start Date Expiration Date Visits Re quested Visits Authorized [id number] Closed 12/28/2022 01/27/2024 6 6 Encounter Details Date Type Department Care Team (Late st Contact Info) Description 06/20/2023 11:30 AM CDT Office Visit [facility] Adolescent Medicine [address] [facility] 2nd [place] [address] [place] [address] Jimena Lim MD 1 [facility] [address] [place] [address] Encounter for management and injection of depo-Provera [...] on file 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 01/07/2021 9:24 AM [...] Deltoid documented in this encounter Care Teams Executive Assistant To President Relationship Specialty Start Date End Date Cortney Pineda NP [address] [facility] [place] [address] PCP - General 06/09/19 Bassem Cho MD [address] [facility] [address] [place] [address] 12/20/18 documented as of this encounter
--- OUTSIDE RECORDS SUMMARY | 2024-10-21 04:45 | XMS_ITS | Encounter Summary ---
Author Organization [facility] Address [address] [place] [address] Phone Care Team Providers Care Iron And Steel Work Supervisor Name Role Phone Bassem Cho MD Unavailable [phone] Cortney Pineda NP Primary Care Provider [phone] Vicky Ramachandran OT Unavailable [phone] Reason for Visit * Reason Onset Date Comments Scheduling Appointments 09/11/2022 Encounter Details Date Type Department Care Team (Late st Contact Info) Description 09/11/2022 Telephone [facility] Occupational Therapy [address] [place] [address] Vicky Ramachandran OT [address] [place] [address] Scheduling Appointments Social History Tobacco [...] on file Legal Sex Female 6:43 AM FAMILY SPECIALIST Gender Identity . 01/07/2021 9:24 AM [...] of month or ct will be d/c LY SPECIALIST documented in this encounter Plan of Treatment Not on file documented as of this encounter Visit Diagnoses Not on filedocumented in this encounter Care Teams Iron And Steel Work Supervisor Relationship Specialty Start Date End Date Cortney Pineda NP [address] [facility] [place] [address] PCP - General 06/09/19 Bassem Cho MD [address] [facility] [address] [place] [address] 12/20/18 Vicky Ramachandran OT [address] [place] [address] Occupational Therapist Occupational Therapy 04/19/21 documented as of this encounter
--- OUTSIDE RECORDS SUMMARY | 2024-10-21 04:45 | XMS_ITS | Encounter Summary ---
Author Organization [facility] Address [address] [place] [address] Phone Care Team Providers Care Spare Hand Carding Name Role Phone Bassem Cho MD Unavailable [phone] Cortney Pineda NP Primary Care Provider [phone] Vicky Ramachandran OT Unavailable [phone] Reason for Referral * Medication Authorization (Routine) - Closed Specialty Diagnoses / Procedures Referred By Contac t Referred To Contact Diagnoses Encounter for management and injection of depo-Provera Jimena Lim MD [address] [place] [address] Phone: tel: fax: Jimena Lim MD Phone: tel: fax: Referral ID Status Reason Start Date Expiration Date Visits Re quested Visits Authorized [id number] Closed 09/07/2022 10/07/2023 1 1 GERIE SUPERINTENDENT Reason for Visit * Medication Authorization (Routine) - Closed Specialty Diagnoses / Procedures Referred By Contac t Referred To Contact Diagnoses Encounter for management and injection of depo-Provera Jimena Lim MD [address] [address] Phone: tel: fax: Jimena Lim MD Phone: tel: fax: Referral ID Status Reason Start Date Expiration Date Visits Re quested Visits Authorized [id number] Closed 09/07/2022 10/07/2023 1 1 Encounter Details Date Type Department Care Team (Late st Contact Info) Description 09/07/2022 11:00 AM MENAGERIE SUPERINTENDENT Office Visit [facility] [address] [facility] [address] [place] [address] Jimena Lim MD 1 [facility] [address] [place] [address] Need for vaccination (Primary Dx); Encounter for [...] on file Legal Sex Female 6:43 AM MENAGERIE SUPERINTENDENT Gender Identity . 01/07/2021 9:24 AM CDT Sexual Orientation Not on file documented as of this encounter Last Filed Vital Signs Vital Sign Reading Time Taken Comments Blood Pressure 116/75 09/07/2022 11:19 AM MENAGERIE SUPERINTENDENT Pulse 110 09/07/2022 11:19 AM MENAGERIE SUPERINTENDENT Temperature 36.4 ??C (97.6 ??F) 09/07/2022 11:[address] Respiratory Rate 20 09/07/2022 11:19 AM MENAGERIE SUPERINTENDENT Oxygen Saturation 96% 09/07/2022 11:19 AM MENAGERIE SUPERINTENDENT Inhaled Oxygen Concentration - - Weight 71.7 kg (158 lb) 09/07/2022 11:19 AM MENAGERIE SUPERINTENDENT Height 164.1 cm (5' 4.61 ) 09/07/2022 11:[address] Body Mass Index 26.61 09/07/2022 11:19 AM MENAGERIE SUPERINTENDENT Body Mass Index Percentile 88.19% 09/07/2022 11: 19 AM MENAGERIE SUPERINTENDENT Growth Chart: [facility] [...] Jimena Lim MD at 09/07/2022 12:18 PM MENAGERIE SUPERINTENDENT GERIE SUPERINTENDENT GERIE SUPERINTENDENT Associated attestation - Jimena Lim MD - 09/07/2022 12:18 PM MENAGERIE SUPERINTENDENT I have seen and examined the patient [...] and total testosterone, DHEAS and 17 OHP.Recommended inspector printed circuit boards draw. Depo provided, follow up in 3 months. Jimena Lim MD, MPH documented in this encounter Plan of Treatment Not on file documented as of this encounter Procedures Procedure Name Priority Date/Time Associated Diagnosis Comments 17 HYDROXYPROGESTERONE Routine 1:16 PM MENAGERIE SUPERINTENDENT Hirsutism DHEA-SULFATE Routine 12/01/2022 1:16 PM MENAGERIE SUPERINTENDENT Hirsutism TESTOSTERONE, TOTAL AND FREE, SERUM Routine 12/01/2022 1:16 PM MENAGERIE SUPERINTENDENT Hirsutism documented in this encounter Results * Testosterone, Total and Free, Serum (12/01/2022 1:16 PM MENAGERIE SUPERINTENDENT) Testosterone 22 2 - 45 ng/dL [facility] Comment: For additional information, please refer to http://education.PutPlace/faq/TotalTestosteroneLCMSMS (This link is being provided for informational/ educational purposes only.) This test was developed and its analytical performance characteristics have been determined by [facility]. It has not been cleared or approved by the FDA. This assay has been validated pursuant to the CLIA regulations and is used for clinical purposes. Testosterone, free 3.5 0.1 - 6.4 pg/mL [facility] Comment: This test was developed and its analytical performance characteristics have been determined by [facility]. It has not been cleared or approved by the FDA. This assay has been validated pursuant to the CLIA regulations and is used for clinical purposes. Sex hormone binding globulin 26 17 - 124 nmol/L Drew Root [facility] Blood 12/01/2022 1:16 PM MENAGERIE SUPERINTENDENT 12/01/2022 1:16 PM MENAGERIE SUPERINTENDENT Jimena Lim MD LAB BLOOD ORDERABLES Final Result [facility] [address] [place] [address] * 17-Hydroxyprogesterone (12/01/2022 1:16 PM MENAGERIE SUPERINTENDENT) 17-hydroxyproges terone 32 ng/dL [facility], Comment: Adult Female Reference Ranges for 17-Hydroxyprogesterone: ??Pre-Menopausal Mid Follicular: ??23-102 ng/dL ??Pre-Menopausal Surge: ? 67-349 ng/dL ??Pre-Menopausal Mid Luteal: ? 139-431 ng/dL ??Postmenopausal Phase: ?< or = 45 ng/dL : ?? First Trimester: ??78-457 ng/dL ?? Second Trimester: 90-357 ng/dL ?? Third Trimester: 144-578 ng/dL This test was developed and its analytical performance characteristics have been determined by [facility]. It has not been cleared or approved by FDA. This assay has been validated pursuant to the CLIA regulations and is used for clinical purposes. Blood 12/01/2022 1:16 PM MENAGERIE SUPERINTENDENT 12/01/2022 1:16 PM MENAGERIE SUPERINTENDENT Jimena Lim MD LAB BLOOD ORDERABLES Final Result [facility], [address] [place] [address] * DHEA-sulfate (12/01/2022 1:16 PM MENAGERIE SUPERINTENDENT) DHEA-S 209 44 - 286 mcg/dL [facility] Blood 12/01/2022 1:16 PM MENAGERIE SUPERINTENDENT 12/01/2022 1:16 PM MENAGERIE SUPERINTENDENT Jimena Lim MD LAB BLOOD ORDERABLES Final Result [facility] [address] [place] [address] documented in this encounter Visit Diagnoses Diagnosis [...] injection of depo-Provera Given 09/07/2022 11:51 AM MENAGERIE SUPERINTENDENT 150 mg Left Deltoid documented in this encounter Historical Medications * This list may reflect changes made after this encounter. medroxyPROGESTERon e (Depo-Provera) 150 mg/mL injection as directed added in this encounter Orders Immunization/Injection Count Last Ordered Date First Ordered Date FLU VACCINE QUAD PF 3Y+ IM - AFLURIA 1 05/2022 documented in this encounter Care Teams Spare Hand Carding Relationship Specialty Start Date End Date Cortney Pineda, ROLLER PRESSER OPERATOR [address] [place] [address] PCP - General 06/09/19 Bassem Cho MD [address] [facility] [address] [place] [address] 12/20/18 Vicky Ramachandran, OT [address] [place] [address] Occupational Therapist Occupational Therapy 04/19/21 documented as of this encounter
--- OUTSIDE RECORDS SUMMARY | 2024-10-21 04:45 | XMS_ITS | Encounter Summary ---
Author Organization [facility] Address [address] [place] [address] Phone Care Team Providers Care Residue Furnace Operator Name Role Phone Bassem Cho MD Unavailable [phone] Cortney Pineda NP Primary Care Provider [phone] Vicky Ramachandran OT Unavailable [phone] Encounter Details Date Type Department Care Team (Late st Contact Info) Description 06/15/2022 10:30 AM CDT Telemedicine [facility] Pediatric Neurology [address] [place] [address] Negrita Pride MD PhD [id number] [place] [address] Tourettes syndrome (Primary Dx); Functional [...] on file Legal Sex Female 6:43 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 01/07/2021 9:24 AM [...] the original note were not included. [facility] Patient Name: LEXIE NUR Medical Record Number (MRN): [id number] Date of (): 2005 Encounter Date: 06/15/2022 The patient was last seen in my clinic on Oct 19 and portions of today's note were copied from my prior note and reviewed, confirmed, and edited as appropriate. This was a telemedicine visit with Lexie Nur and Mom which took place via Real-time video connection ([employer], Zoom or similar). During the visit, I was located at home and the patientwas located at home in the [facility]. The patient visit started at 10:32 [...] benefit as she has been home with COVCT. Depression/Anxiety: started 2017 following a very traumatic year with many deaths in the family. She had 4 hospitalizations over 2773-6276. 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 She feels that there [...] reflex flexor bilaterally. Coordination: No dysmetria on [id number]-udhe bilaterally Gait: deferred, previously Narrow base, steady. [...] returns to school. 1. Continue Clonidine ER, [id number] 2. Return to OT 3. Refer to Psychiatry and psychology for ongoing management 4. RTC 4 months Thank you for allowing me to participate in the care of your patient. If you have any questions, feel free to contact me at [phone]. I have provided the family with contact and emergency contactinformation. Please feel free to contact me if you have any additional questions. Sincerely, Negrita Pride MD PhD Tare Worker of Neurology Division of Pediatric Neurology Cerebral [...] documented as of this encounter Care Teams Residue Furnace Operator Relationship Specialty Start Date End Date Cortney Pineda NP [address] [place] [address] PCP - General 06/09/19 Bassem Cho MD [address] [facility] [address] [place] [address] 12/20/18 Vicky Ramachandran OT [address] [place] [address] Occupational Therapist Occupational Therapy 04/19/21 documented as of this encounter
--- OUTSIDE RECORDS SUMMARY | 2024-10-21 04:45 | XMS_ITS | Encounter Summary ---
Author Organization [facility] Address [address] [place] [address] Phone Care Team Providers Care Consulting Technical Manager Name Role Phone Bassem Cho MD Unavailable [phone] Cortney Pineda NP Primary Care Provider [phone] Vicky Ramachandran OT Unavailable [phone] Reason for Referral * Cardiology (Routine) - Closed Specialty Diagnoses / Procedures Referred By Kendalac t Referred To Contact Diagnoses Encounter for medication monitoring Procedures ECG 12 lead Silvio Tam MD Phone: tel: fax: [facility] (All Locations) Referral ID Status Reason Start Date Expiration Date Visits Re quested Visits Authorized [id number] Closed 05/25/2022 06/24/2023 1 1 Reason for Visit * Cardiology (Routine) - Closed Specialty Diagnoses / Procedures Referred By Juana richard Referred To Contact Diagnoses Encounter for medication monitoring Procedures ECG 12 lead Silvio Tam MD Phone: tel: fax: [facility] (All Locations) Referral ID Status Reason Start Date Expiration Date Visits Re quested Visits Authorized [id number] Closed 05/25/2022 06/24/2023 1 1 Encounter Details Date Type Department Care Team (Latest Contact Info) Description 05/26/2022 1:57 PM CDT - 05/26/2022 11:59 PM CDT Hospital Encounter [facility] Pediatric Cardiology [address] [facility] [address] [place] [address] Encounter for medication monitoring Discharge Disposition: Discharge to home or self care Social History Tobacco Use Types Packs/Day Years Used Date Smoking Tobacco: Never Smokeless Tobacco: Never Alcohol Use Standard Drinks/Week Comments No 0 (1 standard drink = 0.6 oz pur e alcohol) Comments No Sex and Gender Information Value Date Recorded Sex Assigned at Not on file Legal Sex Female 6:43 AM GRANTS ASSISTANT Gender Identity . 01/07/2021 9:24 AM [...] PM CDT) Ventricular Rate EKG/Min 74 BPM [facility] Atrial Rate 74 BPM [facility] [place]-Interval (MSEC) 148 ms [facility] QRS-Interval (MSEC) 80 ms [facility] QT-Interval (MSEC) 360 ms [facility] QTc 400 ms [facility] P [place] 53 degrees [facility] R [place] 87 degrees [facility] T [place] 48 degrees [facility] Diagnosis Normal sinus rhythm Normal ECG No previous ECGs available Confirmed by Ayala Lincoln ([id number]) on 05/26/2022 3:14:33 PM [facility] 05/26/2022 2:01 PM CDT 05/26/2022 3:14 PM CDT us Silvio Tam MD ECG ORDERABLES Final Result [facility] documented in this encounter Visit Diagnoses Diagnosis Encounter for medication monitoring Encounter for therapeutic drug monitoring documented in this encounter Care Teams Consulting Technical Manager Relationship Specialty Start Date End Date Cortney Pineda, CLINICAL FIELD SPECIALIST [address] [place] [address] PCP - General 06/09/19 Bassem Cho MD [address] [facility] [address] [place] [address] 12/20/18 Vicky Ramachandran OT [address] [place] [address] Occupational Therapist Occupational Therapy 04/19/21 documented as of this encounter
--- OUTSIDE RECORDS SUMMARY | 2024-10-21 04:45 | XMS_ITS | Encounter Summary ---
Author Organization [facility] Address [address] [place] [address] Phone Care Team Providers Care Wire Photo Operator Name Role Phone Bassem Cho MD Unavailable [phone] Cortney Pineda NP Primary Care Provider [phone] Vicky Ramachandran OT Unavailable [phone] Reason for Visit * Reason Comments OT Treatment * Consultation (Routine) - Closed Specialty Diagnoses / Procedures Referred By Contact Referred To Contact Pediatric Occupational Therapy Diagnoses Tic disorder Negrita Pride MD PhD [address] [place] [address] Phone: tel: fax: [facility] (All Locations) Referral ID Status Reason Start Date Expiration Date V isits Requested Visits Authorized [id number] Closed Specialty Services Required 11/29/2020 12/29/2021 24 24 Encounter Details Date Type Department Care Team (Late st Contact Info) Description 12/13/2021 1:00 PM CDT Therapy [facility] Occupational Therapy [address] [place] [address] Vicky Ramachandran, OT [address] [place] [address] Functional neurological symptom disorder with [...] on file Legal Sex Female 6:43 AM SIGNALING PROJECT ENGINEER Gender Identity . 01/07/2021 9:24 AM [...] ear plugs 2/2 family financial situation. ?? [place] of new accommodations. ?? Accommodations id are: [...] still be needed ?? Advocate to special sr. media manager to ask for teacher notes ?? [...] 3 (creating CR 3 steps) Progressing (12/02/2020) Karate Black Belt Goals: Goals Status 1. Ct will walk [...] documented in this encounter Care Teams Wire Photo Operator Relationship Specialty Start Date End Date Cortney Pineda NP [address] [address] PCP - General 06/09/19 Bassem Cho MD [address] [facility] [address] [place] [address] 12/20/18 Vicky Ramachandran OT [address] [place] [address] Occupational Therapist Occupational Therapy 04/19/21 documented as of this encounter
--- OUTSIDE RECORDS SUMMARY | 2024-10-21 04:45 | XMS_ITS | Encounter Summary ---
Author Organization [facility] Address [address] [place] [address] Phone Care Team Providers Care Russian History Professor Name Role Phone Bassem Cho MD Unavailable [phone] Cortney Pineda NP Primary Care Provider [phone] Vicky Ramachandran OT Unavailable [phone] Encounter Details Date Type Department Care Team (Late st Contact Info) Description 01/23/2022 Telephone [facility] Pediatric Neurology [address] [place] [address] Negrita Pride MD PhD [id number] [place] [address] Social History Tobacco Use Types Packs/Day Years Used Date Smoking Tobacco: Never Smokeless Tobacco: Never Alcohol Use Standard Drinks/Week Comments No 0 (1 standard drink = 0.6 oz pur e alcohol) Comments No Sex and Gender Information Value Date Recorded Sex Assigned at Not on file Legal Sex Female 6:43 AM YEAST CULTURE DEVELOPER Gender Identity . 01/07/2021 9:24 AM [...] on filedocumented in this encounter Care Teams Russian History Professor Relationship Specialty Start Date End Date Cortney Pineda PRIOR AUTHORIZATION TECHNICIAN [address] [place] [address] PCP - General 06/09/19 Bassem Cho MD [address] [facility] [place] [address] 12/20/18 Vicky Ramachandran, OT [address] [place] [address] Occupational Therapist Occupational Therapy 04/19/21 documented as of this encounter
--- OUTSIDE RECORDS SUMMARY | 2024-10-21 04:45 | XMS_ITS | Encounter Summary ---
Author Organization [facility] Address [address] [place] [address] Phone Care Team Providers Care Vat Washer Name Role Phone Bassem Cho MD Unavailable [phone] Cortney Pineda NP Primary Care Provider [phone] Vicky Ramachandran OT Unavailable [phone] Reason for Referral * Medication Authorization (Routine) - Closed Specialty Diagnoses / Procedures Referred By Contac t Referred To Contact Diagnoses Encounter for management and injection of depo-Provera Jimena Lim MD [address] [address] Phone: tel: fax: Jimena Lim MD Phone: tel: fax: Referral ID Status Reason Start Date Expiration Date Visits Re quested Visits Authorized [id number] Closed 01/05/2022 02/04/2023 1 1 Reason for Visit * Medication Authorization (Routine) - Closed Specialty Diagnoses / Procedures Referred By Contdorian t Referred To Contact Diagnoses Encounter for management and injection of depo-Provera Jimena Lim MD [address] [address] Phone: tel: fax: Jimena Lim MD Phone: tel: fax: Referral ID Status Reason Start Date Expiration Date Visits Re quested Visits Authorized [id number] Closed 01/05/2022 02/04/2023 1 1 Encounter Details Date Type Department Care Team (Late st Contact Info) Description 01/05/2022 1:00 PM CDT Procedure visit [facility] [address] [facility] [address] [place] [address] Jimena Lim MD 1 [facility] [address] [place] [address] Encounter for management and injection of depo-Provera [...] on file Legal Sex Female 6:43 AM REHABILITATION ASSISTANT Gender Identity . 01/07/2021 9:24 AM [...] Exam Vitals reviewed. Constitutional: Appearance: Normal appearance. Lexei Oconnell is normal weight. Cardiovascular: Rate and [...] CDT) HCG, ur, POC Negative Lot Number [id number] QC Backgroud Clear Acceptable QC Control Line [...] ck documented in this encounter Care Teams Vat Washer Relationship Specialty Start Date End Date Cortney Pineda, CLINICAL GENETICIST [address] [facility] [place] [address] PCP - General 06/09/19 Bassem Cho MD [address] [facility] [address] [place] [address] 12/20/18 Vicky Ramachandran, OT [address] [place] [address] Occupational Therapist Occupational Therapy 04/19/21 documented as of this encounter
--- OUTSIDE RECORDS SUMMARY | 2024-10-21 04:45 | XMS_ITS | Encounter Summary ---
Author Organization [facility] Address [address] [place] [address] Phone Care Team Providers Care Terminal Worker Name Role Phone Bassem Cho MD Unavailable Cortney Pineda NP Primary Care Provider Vicky Ramachandran OT Unavailable [phone] Encounter Details Date Type Department Care Team (Late st Contact Info) Description 05/24/2022 Documentation [facility] Occupational Therapy [address] [place] [address] Vicky Ramachandran, OT [address] [place], [place] [id number] Social History Tobacco Use Types Packs/Day Years Used Date Smoking Tobacco: Never Smokeless Tobacco: Never Alcohol Use Standard Drinks/Week Comments No 0 (1 standard drink = 0.6 oz pur e alcohol) Comments No Sex and Gender Information Value Date Recorded Sex Assigned at Not on file Legal Sex Female 6:43 AM CLARK DRIVER Gender Identity . 01/07/2021 9:24 AM CDT [...] on filedocumented in this encounter Care Teams Terminal Worker Relationship Specialty Start Date End Date Cortney Pineda SPINNER TENDER [address] [place] [address] PCP - General 06/09/19 Bassem Cho MD [address] [facility] [address] [place] [address] 12/20/18 Vicky Ramachandran OT [address] [place] [address] Occupational Therapist Occupational Therapy 04/19/21 documented as of this encounter
--- OUTSIDE RECORDS SUMMARY | 2024-10-21 04:45 | XMS_ITS | Encounter Summary ---
Author Organization [facility] Address [address] [place] [address] Phone Care Team Providers Care Lead Manufacturing Engineer Name Role Phone Bassem Cho MD Unavailable [phone] Cortney Pineda NP Primary Care Provider Vicky Ramachandran OT Unavailable [phone] Reason for Referral * Medication Authorization (Routine) - Closed Specialty Diagnoses / Procedures Referred By Juana t Referred To Contact Diagnoses Encounter for management and injection of depo-Provera Jimena Lim MD [address] [address] Phone: tel: fax: Referral ID Status Reason Start Date Expiration Date Visits Re quested Visits Authorized [id number] Closed 04/04/2022 05/04/2023 1 1 Reason for Visit * Medication Authorization (Routine) - Closed Specialty Diagnoses / Procedures Referred By Jauna richard Referred To Contact Diagnoses Encounter for management and injection of depo-Provera Jimena Lim MD [address] [address] Phone: tel: fax: Referral ID Status Reason Start Date Expiration Date Visits Re quested Visits Authorized [id number] Closed 04/04/2022 05/04/2023 1 1 Encounter Details Date Type Department Care Team (Late st Contact Info) Description 04/04/2022 11:00 AM CDT Office Visit [facility] Adolescent Medicine [address] [facility] 2nd [place] [address] [place] [address] Jimena Lim MD 1 [facility] [address] [place] [address] Encounter for management and injection of depo-Provera (Primary Dx) Social History Tobacco Use Types Packs/Day Years Used Date Smoking Tobacco: Never Smokeless Tobacco: Never Alcohol Use Standard Drinks/Week Comments No 0 (1 standard drink = 0.6 oz pur e alcohol) Comments No Sex and Gender Information Value Date Recorded Sex Assigned at Not on file Legal Sex Female 6:43 AM TEST BAKER Gender Identity . 01/07/2021 9:24 AM CDT [...] 11-12 weeks or sooner with problems. Edie Oralndo MD Pediatric Resident, PG-3 Cosigned by Jimena [...] 08/27/2023 added in this encounter Care Teams Lead Manufacturing Engineer Relationship Specialty Start Date End Date Cortney Pineda NP [address] [place] [address] PCP - General 06/09/19 Bassem Cho MD [address] [facility] [place] [address] 12/20/18 Vicky Ramachandran, OT [address] [place] [address] Occupational Therapist Occupational Therapy 04/19/21 documented as of this encounter
--- OUTSIDE RECORDS SUMMARY | 2024-10-21 04:45 | XMS_ITS | Encounter Summary ---
Author Organization [facility] Address [address] [place] [address] Phone Care Team Providers Care Bilingual Interpreter Name Role Phone Bassem Cho MD Unavailable [phone] Cortney Pineda NP Primary Care Provider [phone] Vicky Ramachandran OT Unavailable [phone] Encounter Details Date Type Department Care Team (Late st Contact Info) Description 11/10/2021 Telephone [facility] 2nd [place] [address] [place] [address] Joi Chris Social History Tobacco Use Types Packs/Day Years Used Date Smoking Tobacco: Never Smokeless Tobacco: Never Alcohol Use Standard Drinks/Week Comments No 0 (1 standard drink = 0.6 oz pur e alcohol) Comments No Sex and Gender Information Value Date Recorded Sex Assigned at Not on file Legal Sex Female 6:43 AM LITHODUPLICATOR OPERATOR Gender Identity . 01/07/2021 9:24 AM [...] back from insurance. Let her know that [facility] said that its a plan exclusion and if they want to proceed I can give them a self pay quote. ODUPLICATOR OPERATOR ODUPLICATOR OPERATOR documented in this encounter Plan of Treatment Not on file documented as of this encounter Visit Diagnoses Not on filedocumented in this encounter Care Teams Bilingual Interpreter Relationship Specialty Start Date End Date Cortney Pineda DIE POLISHER [address] [facility] [place] [address] PCP - General 06/09/19 Bassem Cho MD [address] [facility] [address] [place] [address] 12/20/18 Vicky Ramachandran, OT [address] [place] [address] Occupational Therapist Occupational Therapy 04/19/21 documented as of this encounter
--- OUTSIDE RECORDS SUMMARY | 2024-10-21 04:45 | XMS_ITS | Encounter Summary ---
Author Organization [facility] Address [address] [place] [address] Care Team Providers Care School Guard Name Role Phone Bassem Cho MD Unavailable Cortney Pineda NP Primary Care Provider [phone] Vicky Ramachandran OT Unavailable [phone] Encounter Details Date Type Department Care Team (Late st Contact Info) Description 06/19/2022 [facility] Behavioral [facility] Community Resources Subsequent [facility] [address] [address] [place] [address] Marino Cardoso Social History Tobacco Use Types Packs/Day Years Used Date Smoking Tobacco: Never Smokeless Tobacco: Never Alcohol Use Standard Drinks/Week Comments No 0 (1 standard drink = 0.6 oz pur e alcohol) Comments No Sex and Gender Information Value Date Recorded Sex Assigned at Not on file Legal Sex Female 6:43 AM WATCH PARTS GRINDER Gender Identity . 01/07/2021 9:24 AM CDT Sexual Orientation Not on file documented as of this encounter Plan of Treatment Not on file documented as of this encounter Visit Diagnoses Not on filedocumented in this encounter Care Teams School Guard Relationship Specialty Start Date End Date Cortney Pineda NP [address] [place] [address] PCP - General 06/09/19 Bassem Cho MD [address] [facility] [address] [place] [address] 12/20/18 Vicky Ramachandran, OT [address] [place] [address] Occupational Therapist Occupational Therapy 04/19/21 documented as of this encounter
--- OUTSIDE RECORDS SUMMARY | 2024-10-21 04:45 | XMS_ITS | Encounter Summary ---
Author Organization [facility] Address [address] [place] [address] Phone Care Team Providers Care Weave Defect Charting Clerk Name Role Phone Bassem Cho MD Unavailable [phone] Cortney Pineda NP Primary Care Provider [phone] Vicky Ramachandran OT Unavailable [phone] Reason for Visit * Reason Comments OT Treatment * Consultation (Routine) - Closed Specialty Diagnoses / Procedures Referred By Contact Referred To Contact Pediatric Occupational Therapy Diagnoses Tic disorder Negrita Pride MD PhD [address] [place] [address] Phone: tel: fax: [facility] (All Locations) Referral ID Status Reason Start Date Expiration Date V isits Requested Visits Authorized [id number] Closed Specialty Services Required 11/29/2020 12/29/2021 24 24 Encounter Details Date Type Department Care Team (Late st Contact Info) Description 11/22/2021 1:00 PM ACCOUNTING SOFTWARE SPECIALIST Therapy [facility] Occupational Therapy [address] [place] [address] Vicky Ramachandran, OT [address] [place] [address] Functional neurological symptom disorder with [...] file Legal Sex Female 6:43 AM ACCOUNTING SOFTWARE SPECIALIST Gender Identity . 01/07/2021 9:24 AM [...] verbal prompts to use a rodo called [employer] to set daily goals with alarms to: ?? Drink water ?? Eat fruits and vegetables ?? Track food and water. ?? School Accommodations: ?? Teacher notes: no update ?? Noise resistant headphones: no update ?? [place] of new accommodations. ?? Accommodations id are: [...] still be needed ?? Advocate to special seed core operator to ask for teacher notes ?? Trial [...] competing responses within 3 mths. New (10/10/2020) Detention Goals: Goals Status 1. Ct will walk up or down stairs with management of FND LE weakness symptoms, 70% of the time on 3/4 wk's within 6 mths. New (10/10/2020) 2. Ct will walk in community setting (i.e. store, hinduism peer groups, school) with management of FND [...] Family Start time: 1304 End time: 1403 UNTING SOFTWARE SPECIALIST documented in this encounter Plan of Treatment Not on file documented as of this encounter Visit Diagnoses Diagnosis Functional neurological symptom disorder with abnormal movement- Primary Anxiety Anxiety state, unspecified Bipolar 1 disorder, Anxiety Tic disorder Tic disorder, unspecified documented in this encounter Care Teams Weave Defect Charting Clerk Relationship Specialty Start Date End Date Cortney Pineda VIDEO PRESENTATION OPERATOR [address] [place] [address] PCP - General 06/09/19 Bassem Cho MD [address] [facility] [address] [place] [address] 12/20/18 Vicky Ramachandran OT [address] [place] [address] Occupational Therapist Occupational Therapy 04/19/21 documented as of this encounter
--- OUTSIDE RECORDS SUMMARY | 2024-10-21 04:45 | XMS_ITS | Encounter Summary ---
Author Organization [facility] Address [address] [place] [address] Phone Care Team Providers Care Director Presales Name Role Phone Bassem Cho MD Unavailable [phone] Cortney Pineda NP Primary Care Provider [phone] Vicky Ramachandran OT Unavailable Reason for Visit * Reason Comments OT Treatment * Consultation (Routine) - Closed Specialty Diagnoses / Procedures Referred By Contact Referred To Contact Pediatric Occupational Therapy Diagnoses Tic disorder Negrita Pride MD PhD [address] [place] [address] Phone: tel: fax: [facility] (All Locations) Referral ID Status Reason Start Date Expiration Date V isits Requested Visits Authorized [id number] Closed Specialty Services Required 11/29/2020 12/29/2021 24 24 Encounter Details Date Type Department Care Team (Late st Contact Info) Description 12/02/2021 10:00 AM SUPERVISOR PICKING CREW Therapy [facility] Occupational Therapy [address] [place] [address] Vicky Ramachandran, OT [address] [place] [address] Functional neurological symptom disorder with [...] file Legal Sex Female 6:43 AM SUPERVISOR PICKING CREW Gender Identity . 01/07/2021 9:24 AM CDT Sexual Orientation Not on file documented as of this encounter Progress Notes * Vicky Ramachandran, OT - 12/02/2021 10:00 AM CST OT Daily Treatment Note Lexie Oconnell 2005 Subjective: Ct stated she was upset (tearful) as her parents told her she could not use her Pluck rodo as she was tracking medical info [...] headphones to increase blocking of noise. ?? [place] of new accommodations. ?? Accommodations id are: [...] still be needed ?? Advocate to special dredge pumper to ask for teacher notes ?? Trial [...] 3 (creating CR 3 steps) Progressing (12/02/2020) Jail Goals: Goals Status 1. Ct will walk up or down stairs with management of FND LE weakness symptoms, 70% of the time on 3/4 wk's within 6 mths. Met on 10/01 sessions. Progressing (12/02/2020) 2. Ct will walk in community setting (i.e. 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
--- OUTSIDE RECORDS SUMMARY | 2024-10-21 04:45 | XMS_ITS | Encounter Summary ---
Author Organization [facility] Healthcare Address [address] [place] [address] Care Team Providers Care Shirt Ironer Name Role Phone Bassem Cho MD Unavailable [phone] Cortney Pineda NP Primary Care Provider [phone] Vicky Ramachandran OT Unavailable [phone] Encounter Details Date Type Department Care Team (Late st Contact Info) Description 06/15/2022 [facility] Behavioral [facility] Resources Initial [facility] [address] [address] [place] [address] Marino Cardoso Social History Tobacco Use Types Packs/Day Years Used Date Smoking Tobacco: Never Smokeless Tobacco: Never Alcohol Use Standard Drinks/Week Comments No 0 (1 standard drink = 0.6 oz pur e alcohol) Comments No Sex and Gender Information Value Date Recorded Sex Assigned at Not on file Legal Sex Female 6:43 AM BUSINESS OBJECTS ARCHITECT Gender Identity . 01/07/2021 9:24 AM CDT Sexual Orientation Not on file documented as of this encounter Plan of Treatment Not on file documented as of this encounter Visit Diagnoses Not on filedocumented in this encounter Care Teams Shirt Ironer Relationship Specialty Start Date End Date Cortney Pineda NP [address] [place] [address] PCP - General 06/09/19 Bassem Cho MD [address] [facility] [address] [place] [address] 12/20/18 Vicky Ramachandran, OT [address] [place] [address] Occupational Therapist Occupational Therapy 04/19/21 documented as of this encounter
--- OUTSIDE RECORDS SUMMARY | 2024-10-21 04:45 | XMS_ITS | Encounter Summary ---
Author Organization [facility] Address [address] [place] [address] Phone Care Team Providers Care Behavioral Therapist Name Role Phone Bassem Cho MD Unavailable [phone] Cortney Pineda NP Primary Care Provider [phone] Vicky Ramachandran OT Unavailable [phone] Reason for Referral * Medication Authorization (Routine) - Closed Specialty Diagnoses / Procedures Referred By Juana t Referred To Contact Diagnoses Encounter for management and injection of depo-Provera Jimena Lim MD [address] [address] Phone: tel: fax: Referral ID Status Reason Start Date Expiration Date Visits Re quested Visits Authorized [id number] Closed 06/21/2022 07/21/2023 1 1 Reason for Visit * Medication Authorization (Routine) - Closed Specialty Diagnoses / Procedures Referred By Juana richard Referred To Contact Diagnoses Encounter for management and injection of depo-Provera Jimena Lim MD [address] [address] Phone: tel: fax: Referral ID Status Reason Start Date Expiration Date Visits Re quested Visits Authorized [id number] Closed 06/21/2022 07/21/2023 1 1 Encounter Details Date Type Department Care Team (Late st Contact Info) Description 06/21/2022 11:30 AM CDT Office Visit [facility] Adolescent Medicine [facility] 2nd [place] [address] [place] [address] Jimena Lim MD [address] [facility] [address] [place] [address] Encounter for management and injection of depo-Provera (Primary Dx) Social History Tobacco Use Types Packs/Day Years Used Date Smoking Tobacco: Never Smokeless Tobacco: Never Alcohol Use Standard Drinks/Week Comments No 0 (1 standard drink = 0.6 oz pur e alcohol) Comments No Sex and Gender Information Value Date Recorded Sex Assigned at Not on file Legal Sex Female 6:[address] SUPERVISOR Gender Identity . 01/07/2021 9:24 AM CDT [...] mg Route intramuscular Administered By Townson, Tamia, ASSET LIABILITY ANALYST FOLLOW UP Follow up in 11-12 weeks [...] ck documented in this encounter Care Teams Behavioral Therapist Relationship Specialty Start Date End Date Cortney Pineda NP [address] [facility] [place] [address] PCP - General 06/09/19 Bassem Cho MD [address] [facility] [facility] [address] [address] [place] [address] 12/20/18 Vicky Ramachandran OT [address] [place] [address] Occupational Therapist Occupational Therapy 04/19/21 documented as of this encounter
--- OUTSIDE RECORDS SUMMARY | 2024-10-21 04:45 | XMS_ITS | Encounter Summary ---
Author Organization [facility] Healthcare Address [address] [place] [address] Care Team Providers Care Cardiology Rn Name Role Phone Bassem Cho MD Unavailable Cortney Pineda NP Primary Care Provider [phone] Vicky Ramachandran OT Unavailable [phone] Encounter Details Date Type Department Care Team (Late st Contact Info) Description 05/26/2022 1:40 [place] [address] Encounter for medication monitoring Social History Tobacco Use Types Packs/Day Years Used Date Smoking Tobacco: Never Smokeless Tobacco: Never Alcohol Use Standard Drinks/Week Comments No 0 (1 standard drink = 0.6 oz pur e alcohol) Comments No Sex and Gender Information Value Date Recorded Sex Assigned at Not on file Legal Sex Female 6:43 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 01/07/2021 9:24 AM CDT [...] [facility] Neutrophil pct 48.5 % [facility] Comment: Interpretive Data Percent cell count reference ranges are not reported, since discordance with absolute values may lead to misinterpretation of CBC data. Current Interpretive Data was last revised on 2018. Imm gran pct 0.2 % [facility] Comment: Interpretive Data Percent cell count reference ranges are not reported, since discordance with absolute values may lead to misinterpretation of CBC data. Current Interpretive Data was last revised on 2018. Lymphocyte pct 46.2 % [facility] Comment: Interpretive Data Percent cell count reference ranges are not reported, since discordance with absolute values may lead to misinterpretation of CBC data. Current Interpretive Data was last revised on 2018. Monocyte pct 4.2 % [facility] Comment: Interpretive Data Percent cell count reference ranges are not reported, since discordance with absolute values may lead to misinterpretation of CBC data. Current Interpretive Data was last revised on 2018. Eosinophil pct 0.7 % [facility] Comment: Interpretive Data Percent cell count reference ranges are not reported, since discordance with absolute values may lead to misinterpretation of CBC data. Current Interpretive Data was last revised on 2018. Basophil pct 0.2 % [facility] Comment: Interpretive Data Percent cell count reference ranges are not reported, since discordance with absolute values may lead to misinterpretation of CBC data. Current Interpretive Data was last revised on 2018. Blood 05/26/2022 1:44 PM CDT 05/26/2022 2:18 PM CDT us Silvio Tam MD LAB BLOOD ORDERABLES Final Resul t Performing Organization Address City/[facility]/ZIP Co de Phone Number [facility] [place] [address] * CBC with auto differential (05/26/2022 1:44 PM CDT) WBC 5.5 3.8 - 9.9 K/cumm [facility] Hgb 13.1 11.9 - 15.5 g/dL [facility] Hct 38.8 35.6 - 45.5 % [facility] Plt 299 150 - 400 K/cumm [facility] MPV 9.6 9.1 - 12.3 fL [facility] RBC 4.55 3.90 - 5.20 M/cumm [facility] MCV 85.3 81.3 - 96.4 fL [facility] MCH 28.8 27.1 - 33.3 pg [facility] MCHC 33.8 32.3 - 35.7 g/dL [facility] RDW CV 13.7 11.1 - 14.9 % [facility] RDW SD 42.7 35.7 - 48.1 fL [facility] NRBC abs 0.00 0.00 - 0.01 K/cumm [facility] Blood 05/26/2022 1:44 PM CDT 05/26/2022 2:18 PM CDT Silvio Tam MD LAB BLOOD ORDERABLES Final Resul t [facility] [place] [address] * (ABNORMAL) Comprehensive metabolic panel (05/26/2022 1:44 PM CDT) Sodium 146(H) 135 - 145 mmol/L [facility] Potassium, pl 4.4 3.3 - 4.9 mmol/L [facility] Chloride 113 100 - 114 mmol/L [facility] CO2 22 20 - 30 mmol/L [facility] Anion gap 12 2 - 15 mmol/L [facility] BUN 12 9 - 18 mg/dL [facility] Creatinine 0.49 0.40 - 1.00 mg/dL [facility] Glucose 88 70 - 199 mg/dL [facility] Comment: Interpretive Data Fasting glucose >/= 126 [...] Calcium 9.5 8.5 - 10.3 mg/dL [facility] Bilirubin, total 0.2 0.1 - 1.2 mg/dL [facility] Protein, pl 7.3 6.5 - 8.5 g/dL [facility] Albumin 4.8 3.2 - 5.0 g/dL [facility] Alk phos 48(L) 70 - 260 Units/L [facility] ALT 8 7 - 45 Units/L [facility] AST 13 10 - 50 Units/L [facility] Blood 05/26/2022 1:44 PM CDT 05/26/2022 2:19 PM CDT us Silvio Tam MD LAB BLOOD ORDERABLES Final Resul t [facility] [place] [address] * Hemoglobin A1c (05/26/2022 1:44 PM CDT) Hgb A1C 4.9 4.0 - 5.6 % [facility] Blood 05/26/2022 1:44 PM CDT 05/26/2022 2:19 PM CDT Silvio Tam MD LAB BLOOD ORDERABLES Final Resul t Performing Organization Address City/[facility] [place] [address] * TSH (05/26/2022 1:44 PM CDT) Thyroid Stimulating Hormone 0.64 0.30 - 4.20 mcIUnit/mL [facility] Blood 05/26/2022 1:44 PM CDT 05/26/2022 2:19 PM CDT Silvio Tam MD LAB BLOOD ORDERABLES Final Resul t Performing Organization Address [facility] [place] [address] * (ABNORMAL) Lipid panel (05/26/2022 1:44 PM CDT) Cholesterol 170 <=199 mg/dL [facility] Comment: Interpretive Data Ages < or = [...] on 2018. Triglycerides 70 <=129 mg/dL [facility] Comment: Interpretive Data Ages < or = [...] on 2018. HDL 40(L) >=45 mg/dL [facility] Comment: Interpretive Data Ages < or = [...] 2018. LDL, calculated 116 <=129 mg/dL [facility] Comment: Interpretive Data Ages < or = [...] 2018. Non-HDL Cholesterol 130 <=144 mg/dL [facility] Comment: Interpretive Data Ages < or = [...] revised on 2018. Chol/HDL ratio 4 [facility] Blood 05/26/2022 1:44 PM CDT 05/26/2022 2:19 PM CDT us Silvio Tam MD LAB BLOOD ORDERABLES Final Resul t [facility] Department [place] [address] documented in this encounter Visit Diagnoses Diagnosis Encounter for medication monitoring Encounter for therapeutic drug monitoring documented in this encounter Care Teams Cardiology Rn Relationship Specialty Start Date End Date Cortney Pineda NP [address] [place] [address] PCP - General 06/09/19 Bassem Cho MD [address] [facility] [facility] [address] [place] [address] 12/20/18 Vicky Ramachandran, OT [address] [place] [address] Occupational Therapist Occupational Therapy 04/19/21 documented as of this encounter
--- OUTSIDE RECORDS SUMMARY | 2024-10-21 04:46 | XMS_ITS | Encounter Summary ---
Author Organization [facility] Address [address] [place] [address] Phone Care Team Providers Care Service Correspondent Name Role Phone Bassem Cho MD Unavailable [phone] Cortney Pineda NP Primary Care Provider [phone] Reason for Visit * Reason Comments OT Treatment * Consultation (Routine) - Closed Specialty Diagnoses / Procedures Referred By Contact Referred To Contact Pediatric Occupational Therapy Diagnoses Tic disorder Negrita Pride MD PhD [address] [place] [address] Phone: tel: fax: [facility] (All Locations) Referral ID Status Reason Start Date Expiration Date V isits Requested Visits Authorized [id number] Closed Specialty Services Required 11/29/2020 12/29/2021 24 24 Encounter Details Date Type Department Care Team (Late st Contact Info) Description 02/23/2021 3:00 PM CDT Therapy [facility] Occupational Therapy [address] [place] [address] Vicky Ramachandran, OT [address] [place] [address] Tic disorder (Primary Dx) Social History Tobacco Use Types Packs/Day Years Used Date Smoking Tobacco: Never Smokeless Tobacco: Never Alcohol Use Standard Drinks/Week Comments No 0 (1 standard drink = 0.6 oz pur e alcohol) Comments No Sex and Gender Information Value Date Recorded Sex Assigned at Not on file Legal Sex Female 6:43 AM GROUP TESTER Gender Identity . 01/07/2021 9:24 AM CDT Sexual Orientation Not on file documented as of this encounter Progress Notes * Tanya Broussard, BS - 02/23/2021 3:00 PM CDT OT Daily Treatment Note Lexie Gross Anish 2005 Subjective: Lexie reported ze are continuing to experience anxiety from questioning zer gender identity and orthodoxy, but reported they are feeling overall less [...] 3/4 weeks within 2 months. New (12/23/2020) Anatomical Embalmer Goals: 1. Client and caregiver will create [...] unspecified documented in this encounter Care Teams Service Correspondent Relationship Specialty Start Date End Date Cortney Pineda NP [address] [place] [address] PCP - General 06/09/19 aBssem Cho MD [address] [place] [address] 12/20/18 documented as of this encounter
--- OUTSIDE RECORDS SUMMARY | 2024-10-21 04:46 | XMS_ITS | Encounter Summary ---
Author Organization [facility] Address [address] [place] [address] Phone Care Team Providers Care Water Safety Instructor Name Role Phone Bassem Cho MD Unavailable [phone] Cortney Pineda NP Primary Care Provider [phone] Vicky Ramachandran OT Unavailable [phone] Reason for Visit * Reason Comments OT Treatment * Consultation (Routine) - Closed Specialty Diagnoses / Procedures Referred By Contact Referred To Contact Pediatric Occupational Therapy Diagnoses Tic disorder Negrita Pride MD PhD [address] [place] [address] Phone: tel: fax: [facility] (All Locations) Referral ID Status Reason Start Date Expiration Date V isits Requested Visits Authorized [id number] Closed Specialty Services Required 11/29/2020 12/29/2021 24 24 Encounter Details Date Type Department Care Team (Late st Contact Info) Description 04/18/2021 2:00 PM CDT Therapy [facility] Occupational Therapy [address] [place] [address] Vicky Ramachandran, OT [address] [place] [address] Tic disorder (Primary Dx); Anxiety; Bipolar 1 disorder, Anxiety Social History Tobacco Use Types Packs/Day Years Used Date Smoking Tobacco: Never Smokeless Tobacco: Never Alcohol Use Standard Drinks/Week Comments No 0 (1 standard drink = 0.6 oz pur e alcohol) Comments No Sex and Gender Information Value Date Recorded Sex Assigned at Not on file 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 01/07/2021 9:24 AM CDT [...] days. ?? Min verbal ed on tic personal fitness trainer program and how it differs from CBIT program. Ct and OTR agreed to trial use of CBIT for 1 more tic to assess if protocol is working. Plan if it does not work is to try tic personal fitness trainer program. HEP: ?? Implement use of [...] reason OTR introduced new tx idea, tic personal fitness trainer, this session. Ct will benefit from [...] a day on 10/01 wks Progressing (04/18/2021) Service Center Appraiser Goals: 1. Client and caregiver will create [...] Anxiety documented in this encounter Care Teams Water Safety Instructor Relationship Specialty Start Date End Date Cortney Pineda MANAGER PROGRESSIVE CARE [address] [place] [address] PCP - General 06/09/19 Bassem Cho MD [address] [facility] [facility] [place] [address] 12/20/18 Vicky Ramachandran OT [address] [place] [address] Occupational Therapist Occupational Therapy 04/19/21 documented as of this encounter
--- OUTSIDE RECORDS SUMMARY | 2024-10-21 04:46 | XMS_ITS | Encounter Summary ---
Author Organization [facility] Address [address] [place] [address] Phone Care Team Providers Care Business Architect Name Role Phone Bassem Cho MD Unavailable [phone] Cortney Pineda NP Primary Care Provider [phone] Vicky Ramachandran OT Unavailable [phone] Encounter Details Date Type Department Care Team (Late st Contact Info) Description 10/19/2021 Telephone [facility] 2nd [place] [address] [place] [address] Joi Chris Social History Tobacco Use Types Packs/Day Years Used Date Smoking Tobacco: Never Smokeless Tobacco: Never Alcohol Use Standard Drinks/Week Comments No 0 (1 standard drink = 0.6 oz pur e alcohol) Comments No Sex and Gender Information Value Date Recorded Sex Assigned at Not on file Legal Sex Female 6:43 AM LABORATORY OPERATIONS COORDINATOR Gender Identity . 01/07/2021 9:24 AM CDT Sexual Orientation Not on file documented as of this encounter Miscellaneous Notes * Telephone Encounter - Joi Chris - 10/19/2021 11:27 AM CST L/m for mom to give me a call back, if patient would still like the breast reduction if yes if patient can upload a pain journal on my chart RATORY OPERATIONS COORDINATOR documented in this encounter Plan of Treatment Not on file documented as of this encounter Visit Diagnoses Not on filedocumented in this encounter Care Teams Business Architect Relationship Specialty Start Date End Date Cortney Pineda LOG RAFTER [address] [place] [address] PCP - General 06/09/19 Bassem Cho MD [address] [facility] [address] [place] [address] 12/20/18 Vicky Ramachandran, DAVID [address] [place] [address] Occupational Therapist Occupational Therapy 04/19/21 documented as of this encounter
--- OUTSIDE RECORDS SUMMARY | 2024-10-21 04:46 | XMS_ITS | Encounter Summary ---
Author Organization [facility] Address [address] [place] [address] Phone Care Team Providers Care Metal Hanging Helper Name Role Phone Bassem Cho MD Unavailable [phone] Cortney Pineda NP Primary Care Provider [phone] Vicky Ramachandran OT Unavailable [phone] Reason for Visit * Reason Comments OT Initial Eval * Consultation (Routine) - Closed Specialty Diagnoses / Procedures Referred By Contact Referred To Contact Pediatric Occupational Therapy Diagnoses Tic disorder Negrita Pride MD PhD [id number] [place] [address] Phone: tel: fax: [facility] (All Locations) Referral ID Status Reason Start Date Expiration Date V isits Requested Visits Authorized [id number] Closed Specialty Services Required 11/29/2020 12/29/2021 24 24 Encounter Details Date Type Department Care Team (Late st Contact Info) Description 10/10/2021 11:00 AM AGENCY DEVELOPMENT MANAGER Therapy [facility] Occupational Therapy [address] [place] [address] Vicky Ramachandran, OT [address] [place] [address] Tic disorder (Primary Dx); Functional [...] on file Legal Sex Female 6:43 AM AGENCY DEVELOPMENT MANAGER Gender Identity . 01/07/2021 9:24 AM [...] Practice: No update on use of CR. [place] Occupational Performance Measure (COPM): Old POC The [place] Occupational Performance Measure (COPM) is a semi-structured [...] are effecting: ?? Walking in community settings (moravian youth group gatherings, school): ct is using w/c as FND symptoms typically occur throughout day. ?? Triggers: lots of people, mod to high stim environments ?? Walking in halls at school: ct not using ze/c. Ct has frequent falls and injuries. Mother when injured has to tow picker ct. This occurs quite often per ct [...] ?? Id location to place pill box [place] Occupational Performance Measure (COPM): This is a [...] months. Continue goal on new POC. (05/30/2021) Senior Living Goals: 1. Client and caregiver will create [...] on 6/[address] ind able to social media content manager's and peers on ze medical conditions and [...] competing responses within 3 mths. New (10/10/2020) City Dispatcher Goals: Goals Status 1. Ct will walk up or down stairs with management of FND LE weakness symptoms, 70% of the time on 3/4 wk's within 6 mths. New (10/10/2020) 2. Ct will walk in community setting (i.e. store, moravian peer groups, school) with management of FND [...] Family Start time: 1100 End time: 1210 [place] DEVELOPMENT MANAGER documented in this encounter Plan of Treatment Not on file documented as of this encounter Visit Diagnoses Diagnosis Tic disorder- Primary Tic disorder, unspecified Functional neurological symptom disorder with abnormal movement Anxiety Anxiety state, unspecified documented in this encounter Care Teams Metal Hanging Helper Relationship Specialty Start Date End Date Cortney Pineda MEAT BONER AND SLICER [address] [facility] [place] [address] PCP - General 06/09/19 Bassem Cho MD [address] [place] [address] 12/20/18 Vicky Ramachandran OT [address] [place] [address] Occupational Therapist Occupational Therapy 04/19/21 documented as of this encounter
--- OUTSIDE RECORDS SUMMARY | 2024-10-21 04:46 | XMS_ITS | Encounter Summary ---
Author Organization [facility] Address [address] [place] [address] Phone Care Team Providers Care Rent And Miscellaneous Remittance Clerk Name Role Phone Bassem Cho MD Unavailable [phone] Cortney Pineda NP Primary Care Provider [phone] Vicky Ramachandran OT Unavailable [phone] Reason for Visit * Reason Comments New Patient BREAST REDUCTION * Consultation (Routine) - Closed Specialty Diagnoses / Procedures Referred By Juana richard Referred To Contact Pediatric Plastic Surgery Diagnoses Macromastia Jimena Lim MD [address] [facility] [address] [place] [address] Phone: tel: fax: [facility] (All Locations) Referral ID Status Reason Start Date Expiration Date V isits Requested Visits Authorized [id number] Closed Specialty Services Required 07/07/2021 08/06/2022 99 99 Encounter Details Date Type Department Care Team (Latest Contact Info) Description 07/21/2021 2:30 PM CDT Office Visit [facility] Plastic & Reconstructive Surgery [address] [facility] [address] [place] [address] Valarie Vincent, PhD [address] [place], [place] [id number] Chronic bilateral back pain, unspecified back location (Primary Dx); Macromastia Social History Tobacco Use Types Packs/Day Years Used Date Smoking Tobacco: Never Smokeless Tobacco: Never Alcohol Use Standard Drinks/Week Comments No 0 (1 standard drink = 0.6 oz pur e alcohol) Comments No Sex and Gender Information Value Date Recorded Sex Assigned at Not on file Legal Sex Female 6:43 AM CHEMICAL PLANT OPERATOR Gender Identity . 01/07/2021 9:24 [...] located between and beneath her breasts. Lexie cOonnell 's height has not changed for the past year. Her shoe size has not changedfor the past year. Her weight has not changed for the past year. Her breast size has not changed inthe past 6 months. eLxie Oconnell has never noted any breast masses. [...] Social History Narrative SOCIAL HISTORY School: attends [address] has to retake classes Home: lives [...] surgery to improve her postoperative satisfaction and penitentiary outcome. We also discussed that breast size [...] 07/21/2021 documented in this encounter Care Teams Rent And Miscellaneous Remittance Clerk Relationship Specialty Start Date End Date Cortney Pineda DISPATCHER SERVICE OR WORK [address] [place] [address] PCP - General 06/09/19 Bassem Cho MD [address] [facility] [address] [place] [address] 12/20/18 Vicky Ramachandran OT [address] [place] [address] Occupational Therapist Occupational Therapy 04/19/21 documented as of this encounter
--- OUTSIDE RECORDS SUMMARY | 2024-10-21 04:46 | XMS_ITS | Encounter Summary ---
Author Organization [facility] Address [address] [place] [address] Phone Care Team Providers Care Financial Compliance Examiner Name Role Phone Bassem Cho MD Unavailable [phone] Cortney Pineda NP Primary Care Provider [phone] Vicky Ramachandran OT Unavailable [phone] Encounter Details Date Type Department Care Team (Late st Contact Info) Description 10/19/2021 11:00 AM FEEDER DRIVER Office Visit [facility] Pediatric Neurology [address] [facility] [address] [place] [address] Negrita Pride MD PhD [id number] [place] [address] Sensory processing difficulty (Primary Dx); [...] on file Legal Sex Female 6:43 AM FEEDER DRIVER Gender Identity . 01/07/2021 9:24 AM CDT Sexual Orientation Not on file documented as of this encounter Last Filed Vital Signs Vital Sign Reading Time Taken Comments Blood Pressure 114/75 10/19/2021 11:10 AM FEEDER DRIVER Pulse 93 10/19/2021 11:10 AM FEEDER DRIVER Temperature 36.4 ??C (97.5 ??F) 10/19/2021 1 1:10 AM FEEDER DRIVER Respiratory Rate 20 10/19/2021 11:1 0 AM FEEDER DRIVER Oxygen Saturation - - Inhaled Oxygen Concentration - - Weight 63 kg (138 lb 12.8 oz) 2 11:10 AM FEEDER DRIVER Height 163.6 cm (5' 4.4 ) 10/19/2021 11 :10 AM FEEDER DRIVER Body Mass Index 23.53 10/19/2021 11:10 AM FEEDER DRIVER Body Mass Index Percentile 75.45% 10/19 11:10 AM FEEDER DRIVER Growth Chart: [facility] (Girls, 2- 20 Years) documented in [...] from the original note were not included. [facility] [...] the family. She had 4 hospitalizations over [phone]. Mood is relatively controlled on Depakote, Clonazepam, Effexor. She is followed by a counselor and psychiatrist. Now diagnosed with bipolar II. Migraines: improved only having occasional, at the worst part, she was having 3- 4 per week. Sensory Issues: Social: She feels that she struggles to make friends and picking tech on social cues. She feels that there [...] reflex flexor bilaterally. Coordination: No dysmetria on [id number] bilaterally Gait: Narrow base, steady. Normal tandem [...] questions, feel free to contact me at [phone]. I have provided the family with contact [...] reportable services. Sincerely, Negrita Pride MD PhD Calibrator Barometers of Neurology Division of Pediatric Neurology Cerebral Palsy and Movement Disorders Section Director, Pediatric Deep Brain Stimulation Program ER DRIVER documented in this encounter Plan of Treatment [...] documented as of this encounter Care Teams Financial Compliance Examiner Relationship Specialty Start Date End Date Cortney Pineda NP [address] [place] [address] PCP - General 06/09/19 Bassem Cho MD [address] [facility] [address] [place] [address] 12/20/18 Vicky Ramachandran OT [address] [place] [address] Occupational Therapist Occupational Therapy 04/19/21 documented as of this encounter
--- OUTSIDE RECORDS SUMMARY | 2024-10-21 04:46 | XMS_ITS | Encounter Summary ---
Author Organization [facility] Address [address] [place] [address] Phone Care Team Providers Care Perioperative Assistant Name Role Phone Bassem Cho MD Unavailable [phone] Cortney Pineda NP Primary Care Provider [phone] Vicky Ramachandran OT Unavailable [phone] Reason for Visit * Reason Comments OT Treatment * Consultation (Routine) - Closed Specialty Diagnoses / Procedures Referred By Contact Referred To Contact Pediatric Occupational Therapy Diagnoses Tic disorder Negrita Pride MD PhD [address] [place] [address] Phone: tel: fax: [facility] (All Locations) Referral ID Status Reason Start Date Expiration Date V isits Requested Visits Authorized [id number] Closed Specialty Services Required 11/29/2020 12/29/2021 24 24 Encounter Details Date Type Department Care Team (Late st Contact Info) Description 10/20/2021 1:30 PM MANAGED CARE PROVIDER Therapy [facility] Occupational Therapy [address] [place] [address] Vicky Ramachandran, OT [address] [place] [address] Functional neurological symptom disorder with [...] on file Legal Sex Female 6:43 AM MANAGED CARE PROVIDER Gender Identity . 01/07/2021 9:24 AM CDT [...] ?? Id location to place pill box [place] Occupational Performance Measure (COPM): This is a [...] competing responses within 3 mths. New (10/10/2020) [facility] Goals: Goals Status 1. Ct will walk up or down stairs with management of FND LE weakness symptoms, 70% of the time on 3/4 wk's within 6 mths. New (10/10/2020) 2. Ct will walk in community setting (i.e. store, yarsanism peer groups, school) with management of FND [...] Family Start time: 1336 End time: 1430 GED CARE PROVIDER documented in this encounter Plan of Treatment Not on file documented as of this encounter Visit Diagnoses Diagnosis Functional neurological symptom disorder with abnormal movement- Primary Anxiety Anxiety state, unspecified Bipolar 1 disorder, Anxiety documented in this encounter Care Teams Perioperative Assistant Relationship Specialty Start Date End Date Cortney Pineda MECHANICAL UNIT REPAIRER [address] [place] [address] PCP - General 06/09/19 Bassem Cho MD [address] [facility] [address] [place] [address] 12/20/18 Vicky Ramachandran OT [address] [place] [address] Occupational Therapist Occupational Therapy 04/19/21 documented as of this encounter
--- OUTSIDE RECORDS SUMMARY | 2024-10-21 04:46 | XMS_ITS | Encounter Summary ---
Author Organization [facility] Address [address] [place] [address] Phone Care Team Providers Care Strip Feeder Name Role Phone Bassem Cho MD Unavailable Cortney Pineda NP Primary Care Provider [phone] Encounter Details Date Type Department Care Team (Late st Contact Info) Description 04/06/2021 Telephone [facility] Pediatric Neurology [address] [facility] [address] [place] [address] Negrita Pride MD PhD [id number] [place], [place] [id number] Social History Tobacco Use Types Packs/Day Years Used Date Smoking Tobacco: Never Smokeless Tobacco: Never Alcohol Use Standard Drinks/Week Comments No 0 (1 standard drink = 0.6 oz pur e alcohol) Comments No Sex and Gender Information Value Date Recorded Sex Assigned at Not on file Legal Sex Female 6:43 AM CERTIFIED ART THERAPIST Gender Identity . 01/07/2021 9:24 AM CDT [...] Noted. Psychiatrist number listed. Dr Kristen Diaz [phone]. Thanks for clarifying * Telephone Encounter - Negrita Pride MD PhD - 04/07/2021 1:12 PM CDT Correct no VPA from us, but would like to talk with her psych * Telephone Encounter - Kirti Beth RN - 04/07/2021 9:24 AM CDT Clonidine 100mcg (5ml) qhs sent to [facility] in [place], [place] per request. * Telephone Encounter - Kirti Beth RN - 04/06/2021 4:46 PM CDT Outgoing call to mom. Discussed with mom she should start clonidine 0.1mg qhs and call with an update in 1 week. Mom provided psychiatrist information for dr pride as listed below. Clonidine rx pended and sent for verification to dr pride. Dr Kristen Diaz [phone] Dr Pride: That is correct. She does [...] disorder documented in this encounter Care Teams Strip Feeder Relationship Specialty Start Date End Date Cortney Pineda NP [address] [place] [address] PCP - General 06/09/19 Bassem Cho MD [address] [facility] [address] [place] [address] 12/20/18 documented as of this encounter
--- OUTSIDE RECORDS SUMMARY | 2024-10-21 04:46 | XMS_ITS | Encounter Summary ---
Author Organization [facility] Address [address] [place] [address] Phone Care Team Providers Care Housekeeping Supervisor Hotel Name Role Phone Bassem Cho MD Unavailable Cortney Pineda NP Primary Care Provider [phone] Vicky Ramachandran OT Unavailable [phone] Reason for Visit * Reason Comments OT Treatment * Consultation (Routine) - Closed Specialty Diagnoses / Procedures Referred By Contact Referred To Contact Pediatric Occupational Therapy Diagnoses Tic disorder Negrita Pride MD PhD [address] [place] [address] Phone: tel: fax: [facility] (All Locations) Referral ID Status Reason Start Date Expiration Date V isits Requested Visits Authorized [id number] Closed Specialty Services Required 11/29/2020 12/29/2021 24 24 Encounter Details Date Type Department Care Team (Late st Contact Info) Description 05/04/2021 9:00 AM CDT Therapy [facility] Occupational Therapy [address] [place] [address] Vicky Ramachandran, OT [address] [place] [address] Tic disorder (Primary Dx) Social History Tobacco Use Types Packs/Day Years Used Date Smoking Tobacco: Never Smokeless Tobacco: Never Alcohol Use Standard Drinks/Week Comments No 0 (1 standard drink = 0.6 oz pur e alcohol) Comments No Sex and Gender Information Value Date Recorded Sex Assigned at Not on file Legal Sex Female 6:43 AM MIXING OPERATOR Gender Identity . 01/07/2021 9:24 AM [...] tx protocol will be shifted to tic labor trainer. Ct will benefit from continued OT [...] zero meals, on 2/3 wk's Progressing () [facility] Goals: 1. Client and caregiver will create [...] unspecified documented in this encounter Care Teams Housekeeping Supervisor Hotel Relationship Specialty Start Date End Date Cortney Pineda IT ASSOCIATE [address] [facility] [place] [address] PCP - General 06/09/19 Bassem Cho MD [address] [facility] [address] [place] [address] 12/20/18 Vicky Ramachandran OT [address] [place] [address] Occupational Therapist Occupational Therapy 04/19/21 documented as of this encounter
--- OUTSIDE RECORDS SUMMARY | 2024-10-21 04:46 | XMS_ITS | Encounter Summary ---
Author Organization [facility] Address [address] [place] [address] Phone Care Team Providers Care Director Of Online Merchandising Name Role Phone Bassem Cho MD Unavailable [phone] Cortney Pineda NP Primary Care Provider Vicky Ramachandran OT Unavailable [phone] Reason for Visit * Reason Comments OT Treatment * Consultation (Routine) - Closed Specialty Diagnoses / Procedures Referred By Contact Referred To Contact Pediatric Occupational Therapy Diagnoses Tic disorder Negrita Pride MD PhD [address] [place] [address] Phone: tel: fax: [facility] (All Locations) Referral ID Status Reason Start Date Expiration Date V isits Requested Visits Authorized [id number] Closed Specialty Services Required 11/29/2020 12/29/2021 24 24 Encounter Details Date Type Department Care Team (Late st Contact Info) Description 10/25/2021 1:00 PM TAPE RECORDER MECHANIC Therapy [facility] Occupational Therapy [address] [place] [address] Vicky Ramachandran, OT [address] [place] [address] 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 01/07/2021 9:24 AM [...] on eating a balanced meal. Ct issued Wiggio's article on eatingbalanced meal. ?? Suggestibility: min [...] looking into ones family can afford. ?? [place] of new accommodations. ?? Accommodations id are: [...] competing responses within 3 mths. New (10/10/2020) Wine Master Goals: Goals Status 1. Ct will walk up or down stairs with management of FND LE weakness symptoms, 70% of the time on 3/4 wk's within 6 mths. New (10/10/2020) 2. Ct will walk in community setting (i.e. store, orthodoxy peer groups, school) with management of FND [...] Family Start time: 1306 End time: 1405 RECORDER MECHANIC documented in this encounter Plan of Treatment Not on file documented as of this encounter Visit Diagnoses Diagnosis Functional neurological symptom disorder with abnormal movement- Primary documented in this encounter Care Teams Director Of Online Merchandising Relationship Specialty Start Date End Date Cortney Pineda NP [address] [place] [address] PCP - General 06/09/19 Bassem hCo MD [address] [facility] [address] [place] [address] 12/20/18 Vicky Ramachandran, OT [address] [place] [address] Occupational Therapist Occupational Therapy 04/19/21 documented as of this encounter
--- OUTSIDE RECORDS SUMMARY | 2024-10-21 04:46 | XMS_ITS | Encounter Summary ---
Author Organization [facility] Address [address] [place] [address] Phone Care Team Providers Care Packager Head Name Role Phone Bassem Cho MD Unavailable [phone] Cortney Pineda NP Primary Care Provider [phone] Reason for Visit * Reason Comments OT Treatment * Consultation (Routine) - Closed Specialty Diagnoses / Procedures Referred By Contact Referred To Contact Pediatric Occupational Therapy Diagnoses Tic disorder Negrita Pride MD PhD [address] [place] [address] Phone: tel: fax: [facility] (All Locations) Referral ID Status Reason Start Date Expiration Date V isits Requested Visits Authorized [id number] Closed Specialty Services Required 11/29/2020 12/29/2021 24 24 Encounter Details Date Type Department Care Team (Late st Contact Info) Description 04/06/2021 1:00 PM CDT Therapy [facility] Occupational Therapy [address] [place] [address] Vicky Ramachandran, OT [address] [place] [address] Tic disorder (Primary Dx) Social History Tobacco Use Types Packs/Day Years Used Date Smoking Tobacco: Never Smokeless Tobacco: Never Alcohol Use Standard Drinks/Week Comments No 0 (1 standard drink = 0.6 oz pur e alcohol) Comments No Sex and Gender Information Value Date Recorded Sex Assigned at Not on file Legal Sex Female 6:43 AM ACTIMIZE ARCHITECT Gender Identity . 01/07/2021 9:24 AM CDT Sexual Orientation Not on file documented as of this encounter Progress Notes * Vicky Ramachandran, OT - 04/06/2021 1:00 PM CDT OT Daily Treatment Note Lexie Oconnell 2005 Subjective: Ct stated she attend her mu-ism groups conclave meeting which week long activity. 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 New (12/23/2020) Custodial Goals: 1. Client and caregiver will create [...] unspecified documented in this encounter Care Teams Packager Head Relationship Specialty Start Date End Date Cortney Pineda, NUTRITION SERVICES WORKER [address] [facility] [place] [address] PCP - General 06/09/19 Bassem Cho MD [address] [facility] [address] [place] [address] 12/20/18 documented as of this encounter
--- OUTSIDE RECORDS SUMMARY | 2024-10-21 04:46 | XMS_ITS | Encounter Summary ---
Author Organization [facility] Address [address] [place] [address] Phone Care Team Providers Care Head Of Insight Name Role Phone Bassem Cho MD Unavailable [phone] Cortney Pineda NP Primary Care Provider [phone] Vicky Ramachandran OT Unavailable [phone] Reason for Visit * Reason Comments OT Treatment * Consultation (Routine) - Closed Specialty Diagnoses / Procedures Referred By Contact Referred To Contact Pediatric Occupational Therapy Diagnoses Tic disorder Negrita Pride MD PhD [id number] [place] [address] Phone: tel: fax: [facility] (All Locations) Referral ID Status Reason Start Date Expiration Date V isits Requested Visits Authorized [id number] Closed Specialty Services Required 11/29/2020 12/29/2021 24 24 Encounter Details Date Type Department Care Team (Late st Contact Info) Description 11/08/2021 1:00 PM DOCUMENT RESTORER Therapy [facility] Occupational Therapy [address] [place] [address] Vicky Ramachandran, OT [address] [place] [address] Functional neurological symptom disorder with [...] on file Legal Sex Female 6:43 AM DOCUMENT RESTORER Gender Identity . 01/07/2021 9:24 AM CDT [...] verbal ed to talk to her special supervising film or videotape editor to help access teacher notes from other teachers. ?? Ct id she is using noise resistant headphones in school and it is sometimes helping. ?? [place] of new accommodations. ?? Accommodations id are: [...] still be needed ?? Advocate to special supervising film or videotape editor to ask for teacher notes ?? [...] competing responses within 3 mths. New (10/10/2020) Grass Cutter Goals: Goals Status 1. Ct will walk [...] Family Start time: 1306 End time: 1400 MENT RESTORER documented in this encounter Plan of Treatment Not on file documented as of this encounter Visit Diagnoses Diagnosis Functional neurological symptom disorder with abnormal movement- Primary Anxiety Anxiety state, unspecified Bipolar 1 disorder, Anxiety documented in this encounter Care Teams Head Of Insight Relationship Specialty Start Date End Date Cortney Pineda WAREHOUSE INVENTORY CLERK [address] [place] [address] PCP - General 06/09/19 Bassem Cho MD [address] [facility] [place] [address] 12/20/18 Vicky Ramachandran OT [address] [place] [address] Occupational Therapist Occupational Therapy 04/19/21 documented as of this encounter
--- OUTSIDE RECORDS SUMMARY | 2024-10-21 04:46 | XMS_ITS | Encounter Summary ---
Author Organization [facility] Address [address] [place] [address] Phone Care Team Providers Care Equipment Validation Specialist Name Role Phone Bassem Cho MD Unavailable [phone] Cortney Pineda NP Primary Care Provider [phone] Vicky Ramachandran OT Unavailable [phone] Encounter Details Date Type Department Care Team (Late st Contact Info) Description 11/04/2021 Telephone [facility] Chloé Mercado Social History Tobacco Use Types Packs/Day Years Used Date Smoking Tobacco: Never Smokeless Tobacco: Never Alcohol Use Standard Drinks/Week Comments No 0 (1 standard drink = 0.6 oz pur e alcohol) Comments No Sex and Gender Information Value Date Recorded Sex Assigned at Not on file Legal Sex Female 6:43 AM GRINDER CHIPPER Gender Identity . 01/07/2021 9:24 AM CDT Sexual Orientation Not on file documented as of this encounter Miscellaneous Notes * Telephone Encounter - Chloé Mercado - 11/04/2021 2:40 PM CST ----- Message from Joi Chris sent at 10/20/2021 8:54 AM GRINDER CHIPPER ----- Regarding: possible surgical patient ORDERING PROVIDER:Dr. Kerri Coffman ? PROCEDURE DESCRIPTION: Bilateral Breast Reduction. ? CPT CODE: 68294 x 2 ? DIAGNOSIS CODE: M54.9, N62 ? [facility] ?? -Clinic Yes -OR -Other ? ADMIT STATUS: none ? TENTATIVE DATE OF SERVICE: ID # [id number] Predetermination: [facility] per [facility] provider portal [employer] (10/01/2021 - 09/30/2022)Provider is In-Network with this policy No referrals required Benefits: deductible 3,000( 0 met ) Family Deductible 6,000( 178.02 met ) Pd @ 80/20 OFP 6,000( 156.76 met ) Family OFP 12,000( 544.78 met ) Submitted on line for CPT 71513 x 2, M54.9, N62 @ [facility] date 11/28/2021 - 02/26/2022 Pending Auth #[id number] Division notified via In [employer] 11/04/2021 Predetermination per fax from [facility] CPT 01177 x 2, M54.9, N62 @ [facility] date 11/28/2021 - 02/26/2022 Pending Auth #[id number] Denied; Policy Exclusion Division notified via in [employer] 11/08/2021 DER CHIPPER DER CHIPPER DER CHIPPER documented in this encounter Plan of Treatment Not on file documented as of this encounter Visit Diagnoses Not on filedocumented in this encounter Care Teams Equipment Validation Specialist Relationship Specialty Start Date End Date Cortney Pineda NP [address] [address] PCP - General 06/09/19 Bassem Cho MD [address] [facility] [place] [facility] [address] [place] [address] 12/20/18 Vicky Ramachandran, OT [address] [place] [address] Occupational Therapist Occupational Therapy 04/19/21 documented as of this encounter
--- OUTSIDE RECORDS SUMMARY | 2024-10-21 04:46 | XMS_ITS | Encounter Summary ---
Author Organization [facility] Address [address] [place] [address] Phone Care Team Providers Care Harbor Engineer Name Role Phone Bassem Cho MD Unavailable [phone] Cortney Pineda NP Primary Care Provider [phone] Encounter Details Date Type Department Care Team (Late st Contact Info) Description 04/06/2021 Documentation [facility] Pediatric Neurology [address] [place] [address] Negrita Pride MD PhD [id number] [place] [address] Social History Tobacco Use Types Packs/Day Years Used Date Smoking Tobacco: Never Smokeless Tobacco: Never Alcohol Use Standard Drinks/Week Comments No 0 (1 standard drink = 0.6 oz pur e alcohol) Comments No Sex and Gender Information Value Date Recorded Sex Assigned at Not on file Legal Sex Female 6:43 AM INFORMATION SYSTEMS PROJECT MANAGER Gender Identity . 01/07/2021 9:24 AM [...] on filedocumented in this encounter Care Teams Harbor Engineer Relationship Specialty Start Date End Date Cortney Pineda CORRECTIVE THERAPY AIDE TEACHER [address] [facility] [place] [address] PCP - General 06/09/19 Bassem Cho MD [address] [facility] [address] [place] [address] 12/20/18 documented as of this encounter
--- OUTSIDE RECORDS SUMMARY | 2024-10-21 04:46 | XMS_ITS | Encounter Summary ---
Author Organization [facility] Address [address] [place] [address] Phone Care Team Providers Care Senior Software Tester Name Role Phone Bassem Cho MD Unavailable [phone] Cortney Pineda NP Primary Care Provider [phone] Vicky Ramachandran OT Unavailable [phone] Reason for Referral * Medication Authorization (Routine) - Closed Specialty Diagnoses / Procedures Referred By Contac t Referred To Contact Diagnoses Encounter for management and injection of depo-Provera Menorrhagia with irregular cycle Procedures Jimena Wilburn MD 1 [facility] [address] [place] [address] Phone: tel: fax: Jimena Lim MD Phone: tel: fax: Referral ID Status Reason Start Date Expiration Date Visits Re quested Visits Authorized [id number] Closed 09/22/2021 10/22/2022 1 1 [facility] CLINICAL LIAISON Reason for Visit * Medication Authorization (Routine) - Closed Specialty Diagnoses / Procedures Referred By Contac t Referred To Contact Diagnoses Encounter for management and injection of depo-Provera Menorrhagia with irregular cycle Procedures Jimena Wilburn MD 1 [facility] [address] [place] [address] Phone: tel: fax: Jimena Lim MD Phone: tel: fax: Referral ID Status Reason Start Date Expiration Date Visits Re quested Visits Authorized [id number] Closed 09/22/2021 10/22/2022 1 1 Encounter Details Date Type Department Care Team (Late st Contact Info) Description 09/22/2021 1:00 PM HOME HEALTH CLINICAL LIAISON Office Visit [facility] Pediatrics [address] [place] [address] [address] [place] [address] Jimena Lim MD 1 [facility] [address] [place] [address] Encounter for management and injection of depo-Provera [...] file Legal Sex Female 6:43 AM HOME HEALTH CLINICAL LIAISON Gender Identity . 01/07/2021 9:24 AM CDT Sexual Orientation Not on file documented as of this encounter Last Filed Vital Signs Vital Sign [place] Time Taken Comments Blood Pressure 116/74 09/22/2021 1:21 PM HOME HEALTH CLINICAL LIAISON Pulse 86 09/22/2021 1:21 PM HOME HEALTH CLINICAL LIAISON Temperature 36.7 ??C (98.1 ??F) 09/22/2021 1:21 PM CS T Respiratory Rate 20 09/22/2021 1:21 PM HOME HEALTH CLINICAL LIAISON Oxygen Saturation 97% 09/22/2021 1:21 PM HOME HEALTH CLINICAL LIAISON Inhaled Oxygen Concentration - - Weight 61.5 kg (135 lb 9.3 oz) 09/22/2021 1:21 P M [facility] Height 163 cm (5' 4.17 ) 09/22/2021 1:21 PM HOME HEALTH CLINICAL LIAISON Body Mass Index 23.15 09/22/2021 1:21 PM HOME HEALTH CLINICAL LIAISON Body Mass Index Percentile 72.89% 09/22/2021 1:2 1 PM HOME HEALTH CLINICAL LIAISON Growth Chart: CDC (Girls, 2- 20 Years) [...] or sooner with problems. Jimena Lim MD HEALTH CLINICAL LIAISON documented in this encounter Plan of Treatment [...] with irregular cycle Given 09/22/2021 1:23 PM HOME HEALTH CLINICAL LIAISON 150 mg Left Dorsogluteal/Butto ck documented in this encounter Care Teams Senior Software Tester Relationship Specialty Start Date End Date Cortney Pineda NP [address] [address] PCP - General 06/09/19 Bassem Cho MD [address] [facility] [address] [place] [address] 12/20/18 Vicky Ramachandran OT [address] [place] [address] Occupational Therapist Occupational Therapy 04/19/21 documented as of this encounter
--- OUTSIDE RECORDS SUMMARY | 2024-10-21 04:46 | XMS_ITS | Encounter Summary ---
Author Organization [facility] Address [address] [place] [address] Phone Care Team Providers Care Radio Mechanic Name Role Phone Bassem Cho MD Unavailable [phone] Cortney Pineda NP Primary Care Provider [phone] Reason for Visit * Reason Comments OT Treatment * Consultation (Routine) - Closed Specialty Diagnoses / Procedures Referred By Contact Referred To Contact Pediatric Occupational Therapy Diagnoses Tic disorder Negrita Pride MD PhD [address] [place] [address] Phone: tel: fax: [facility] (All Locations) Referral ID Status Reason Start Date Expiration Date V isits Requested Visits Authorized [id number] Closed Specialty Services Required 11/29/2020 12/29/2021 24 24 Encounter Details Date Type Department Care Team (Late st Contact Info) Description 04/11/2021 2:00 PM CDT Therapy [facility] Occupational Therapy [address] [place] [phone] Vicky Ramachandran, OT [address] [place] [address] Tic disorder (Primary Dx); Anxiety; Bipolar 1 disorder, Anxiety Social History Tobacco Use Types Packs/Day Years Used Date Smoking Tobacco: Never Smokeless Tobacco: Never Alcohol Use Standard Drinks/Week Comments No 0 (1 standard drink = 0.6 oz pur e alcohol) Comments No Sex and Gender Information Value Date Recorded Sex Assigned at Not on file Legal Sex Female 6:43 AM BACKING IN MACHINE TENDER Gender Identity . 01/07/2021 9:24 AM CDT [...] min. Ct and mother stated that In [facility] bedroom: ct stated tics decrease in [...] a day on 1 wks Progressing (04/11/2021) Color Sprayer Goals: 1. Client and caregiver will create [...] Anxiety documented in this encounter Care Teams Radio Mechanic Relationship Specialty Start Date End Date Cortney Pineda NP [address] [place] [address] PCP - General 06/09/19 Bassem Cho MD [address] [facility] [address] [place] [address] 12/20/18 documented as of this encounter
--- OUTSIDE RECORDS SUMMARY | 2024-10-21 04:46 | XMS_ITS | Encounter Summary ---
Author Organization [facility] Address [address] [place] [address] Phone Care Team Providers Care Tile Grinder Name Role Phone Bassem Cho MD Unavailable [phone] Cortney Pineda NP Primary Care Provider [phone] Vicky Ramachandran OT Unavailable [phone] Reason for Visit * Reason Onset Date Comments Test Results 07/06/2021 Encounter Details Date Type Department Care Team (Late st Contact Info) Description 07/06/2021 Telephone [facility] Adolescent Medicine [facility] 2[address] [place] [address] [place] [address] Ruthann Victoria RN Test Results Social History Tobacco Use Types Packs/Day Years Used Date Smoking Tobacco: Never Smokeless Tobacco: Never Alcohol Use Standard Drinks/Week Comments No 0 (1 standard drink = 0.6 oz pur e alcohol) Comments No Sex and Gender Information Value Date Recorded Sex Assigned at Not on file Legal Sex Female 6:43 AM LOCKSTITCH FRONT MAKER Gender Identity . 01/07/2021 9:24 AM [...] OK to send scripts to pharmacy in [facility] in [place]. Let mother know that testosterone is still [...] on filedocumented in this encounter Care Teams Tile Grinder Relationship Specialty Start Date End Date Cortney Pineda NP [address] [facility] [place] [address] PCP - General 06/09/19 Bassem Cho MD [address] [facility] [place] [address] 12/20/18 Vicky Ramachandran, DAVID [address] [place] [address] Occupational Therapist Occupational Therapy 04/19/21 documented as of this encounter
--- OUTSIDE RECORDS SUMMARY | 2024-10-21 04:46 | XMS_ITS | Encounter Summary ---
Author Organization [facility] Healthcare Address [address] [place] [address] Care Team Providers Care Translator Name Role Phone Bassem Cho MD Unavailable Cortney Pineda NP Primary Care Provider Vicky Ramachandran OT Unavailable [phone] Encounter Details Date Type Department Care Team (Late st Contact Info) Description 07/05/2021 12:45 PM CDT Lab [facility] [place] [address] Jimena Lim MD [address] [place] [address] [address] [place] [address] Menorrhagia with irregular cycle; Tic disorder Discharge [...] on file Legal Sex Female 6:43 AM [employer] Gender Identity . 01/07/2021 9:24 [...] abs 3.1 1.7 - 6.5 K/cumm [facility] Imm gran abs 0.0 0.0 - 0.1 K/cumm [facility] Lymphocyte abs 1.6 0.8 - 3.3 K/cumm [facility] Monocyte abs 0.2 0.2 - 0.8 K/cumm [facility] Eosinophil abs 0.0 0.0 - 0.5 K/cumm [facility] Basophil abs 0.0 0.0 - 0.1 K/cumm [facility] Neutrophil pct 63.1 % [facility] Comment: Interpretive Data Percent cell count reference ranges are not reported, since discordance with absolute values may lead to misinterpretation of CBC data. Current Interpretive Data was last revised on 2018. Imm gran pct 0.4 % [facility] Comment: Interpretive Data Percent cell count reference ranges are not reported, since discordance with absolute values may lead to misinterpretation of CBC data. Current Interpretive Data was last revised on 2018. Lymphocyte pct 31.8 % [facility] Comment: Interpretive Data Percent cell count reference ranges are not reported, since discordance with absolute values may lead to misinterpretation of CBC data. Current Interpretive Data was last revised on 2018. Monocyte pct 4.1 % [facility] Comment: Interpretive Data Percent cell count reference ranges are not reported, since discordance with absolute values may lead to misinterpretation of CBC data. Current Interpretive Data was last revised on 2018. Eosinophil pct 0.2 % [facility] Comment: Interpretive Data Percent cell count reference ranges are not reported, since discordance with absolute values may lead to misinterpretation of CBC data. Current Interpretive Data was last revised on 2018. Basophil pct 0.4 % [facility] Comment: Interpretive Data Percent cell count reference ranges are not reported, since discordance with absolute values may lead to misinterpretation of CBC data. Current Interpretive Data was last revised on 2018. Blood 07/05/2021 12:4 5 PM CDT 07/05/2021 1:06 PM CDT us Jimena Lim MD LAB BLOOD ORDERABLES Final Result Performing Organization Address [facility]/ZIP Co de Phone Number [facility] [place] [address] * (ABNORMAL) Vitamin D 25 hydroxy (07/05/2021 12:45 PM CDT) Vitamin D 25-OH 14(L) 20 - 100 ng/mL [facility] Blood 07/05/2021 12:4 5 PM CDT 07/05/2021 1:06 PM CDT Narrative [facility] - 07/06/2021 12:17 PM CDT AGES: -18 years - Sufficient: 20-100 ng/mL; Borderline: 10-20 ng/mL; Deficient: <10 ng/mL. ??Reference intervals pertain to males and females from through age 18. ??Intervals reflect consensus clinical decision limits derived from various reports including the 2011 [place] [employer] Report on calcium and vitamin D. ??Vitamin D concentrations may vary widely depending on ethnic background, geographic location, and the time of the year the sample was obtained. ??References: ??1. Sander CL, Agnes CASTILLO. Prevention of Rickets and Vitamin D Deficiency in Infants, Children, and Adolescents. Pediatrics 2008;122:2862-3778. ??2. Tommy AC, Chelsea CL, Noble AL, Smith HB, eds. Dietary Reference Intakes for Calcium and Vitamin D. [place] [employer]; National Academies Press:2011 ??3. Konrad GRACIELA, Harshad J, and Mustapha DJ. Circulating Intact Parathyroid Hormone is Suppressed at 25-hydroxyvitamin D Concentrations greater than 25 nmol/L. J Pediatr Endocrinol Metab 2014;doi:10.1515/hjgb-2734-8818. Last revised on 11/02/2017. us Negrita Pride MD PhD LAB BLOOD ORDERAB LES Final Result Performing Organization Address City/[facility]/ZIP Co de Phone Number [facility] [place] [address] * (ABNORMAL) Comprehensive metabolic panel (07/05/2021 12:45 [...] Glucose 96 70 - 199 mg/dL [facility] Comment: Interpretive Data Fasting glucose >/= [...] Albumin 4.8 3.2 - 5.0 g/dL [facility] Alk phos 59(L) 70 - 260 Units/L [facility] ALT 7 7 - 45 Units/L [facility] AST 12 10 - 50 Units/L [facility] Blood 07/05/2021 12:4 5 PM CDT 07/05/2021 1:06 PM CDT us Negrita Pride MD PhD LAB BLOOD ORDERAB LES Final Result [facility] Department [place] [address] * (ABNORMAL) CBC with auto differential (07/05/2021 12:45 PM CDT) [facility] WBC 4.9 3.8 - 9.9 K/cumm [facility] Hgb 11.9 11.9 - 15.5 g/dL [facility] Hct 37.3 35.6 - 45.5 % [facility] Plt 384 150 - 400 K/cumm [facility] MPV 9.2 9.1 - 12.3 fL [facility] RBC 4.62 3.90 - 5.20 M/cumm [facility] MCV 80.7(L) 81.3 - 96.4 fL [facility] MCH 25.8(L) 27.1 - 33.3 pg [facility] MCHC 31.9(L) 32.3 - 35.7 g/dL [facility] RDW CV 14.1 11.1 - 14.9 % [facility] RDW SD 40.7 35.7 - 48.1 fL [facility] NRBC abs 0.00 0.00 - 0.01 K/cumm [facility] Blood 07/05/2021 12:4 5 PM CDT 07/05/2021 1:06 PM CDT Jimena Lim MD LAB BLOOD ORDERABLES Final Result [facility] Department [place] [address] * Platelet Function Screen (07/05/2021 12:45 PM CDT) [facility] PFA-100, epinephrine 88 70 - 170 sec [facility] Comment: Interpretive Data The Collagen/Epinephrine measurement [...] 2 year reference range was established at [facility]. Neonates < 30 days old: ??Cord blood ranges based on samples (n=7) collected from the unbilical vein within 10 minutes of delivery at [facility], [facility], [place], [place], [place]. ??Reference: ??Maribell ARTHUR, Renetta CASTILLO, Teresita VS. ??Use of the PFA-100 in the Assessment of Primary Platelet Related Hemostasis in a Pediatric Setting. ??Semin Thromb Hemost 1998;24:523-529. Ranges do not exist for newborns up to 2 years of age. Current interpretive data was last revised on 06. PFA-100, ADP 100.0 50.0 - 150.0 sec [facility] Comment: Interpretive Data Closure Time above [...] BLOOD ORDERABLES Final Result Performing Organization Address [facility] Co de Phone Number [facility] Department [place] [address] * aPTT (07/05/2021 12:45 PM CDT) aPTT 36 27 - 37 sec [facility] Comment: Interpretive Data Therapeutic heparin range: 60.0 - 94.0 seconds. Based on correlation with therapeutic heparin activity range of 0.3-0.7 Units/mL. Current interpretive data was last revised on 2021. Blood 07/05/2021 12:4 5 PM CDT 07/05/2021 1:06 PM CDT Jimena Lim MD LAB BLOOD ORDERABLES Final Result Performing Organization Address [facility]/State/[facility] [place] [address] * (ABNORMAL) Protime-INR (07/05/2021 12:45 PM CDT) Pathologist [facility] [place] PT 15.4(H) 10.0 - 15.0 sec [facility] INR 1.2 0.8 - 1.2 [facility] Comment: Interpretive data Oral anticoagulant therapeutic ranges: Venous thromboembolism prophylaxis or treatment: 2.0-3.0 CARDIOLOGY Standard range: 2.0-3.0 High-intensity range: 2.5-3.5 Refer to indication-specific guidelines for appropriate target ranges for prosthetic heart valve replacement. Current interpretive data was last revised on 2019. Blood 07/05/2021 12:4 5 PM CDT 07/05/2021 1:06 PM CDT Jimena Lim MD LAB BLOOD ORDERABLES Final Result Performing Organization Address [facility] Co de Phone Number [place] [address] * (ABNORMAL) Ferritin (07/05/2021 12:45 PM CDT) Pathologist [facility] [place] Ferritin 12(L) 15 - 150 ng/mL [facility] Blood 07/05/2021 12:4 5 PM CDT 07/05/2021 1:06 PM CDT Jimena Lim MD LAB BLOOD ORDERABLES Final Result Performing Organization Address City/State/[facility] [place] [address] * Iron profile w/ IBC (07/05/2021 12:45 PM CDT) Iron 40 35 - 145 mcg/dL [facility] TIBC 390 250 - 400 mcg/dL [facility] Transferrin saturation 10 10 - 45 % [facility] Blood 07/05/2021 12:4 5 PM CDT 07/05/2021 1:06 PM CDT Jimena Lim MD LAB BLOOD ORDERABLES Final Result Performing Organization Address [facility] [place] [address] * Reticulocyte Count (07/05/2021 12:45 PM CDT) Retics, absolute 0.053 0.020 - 0.087 M/cumm [facility] Retics 1.2 0.4 - 2.9 % [facility] Reticulocyte Hgb 29.6 28.5 - 38.0 pg [facility] Blood 07/05/2021 12:4 5 PM CDT 07/05/2021 1:06 PM CDT Jimena Lim MD LAB BLOOD ORDERABLES Final Result Performing Organization Address [facility] [place] [address] * Von Willebrand factor activity (07/05/2021 12:45 PM CDT) Pathologist [facility] [place] vWF activity 76 55 - 189 %norm [facility] Comment: Interpretive Data Von Willebrand factor [...] von Willebrand factor activity assay. J Thromb Haemost.2011;9:6835-5183. Current interpretive data was last revised on 2013. Testing performed by: [facility], [address] [place]., [address] Blood 07/05/2021 12:4 5 PM CDT 07/05/2021 2:20 PM CDT Jimena Lim MD LAB BLOOD ORDERABLES Final Result Performing Organization Address [facility] de Phone Number [facility] Department [place] [address] * TSH reflex to free T4 (07/05/2021 12:45 PM CDT) TSH 0.79 0.30 - 4.20 mcIUnit/mL [facility] Blood 07/05/2021 12:4 5 PM CDT 07/05/2021 1:06 PM CDT Jimena Lim MD LAB BLOOD ORDERABLES Final Result Performing Organization Address City/[facility]/[place] [address] * LH (07/05/2021 12:45 PM CDT) LH 11.9 IUnits/L [facility] Comment: Interpretive Data Males: Pre-pubertal: <0.1 [...] ORDERABLES Final Result Performing Organization Address [facility] [place] [address] * Follicle stimulating hormone (07/05/2021 12:45 PM CDT) FSH 4.8 IUnits/L [facility] Comment: Interpretive Data Males: Pre-pubertal: <4 [...] Lim MD LAB BLOOD ORDERABLES Final Result [facility] Department [place] [address] * Testosterone, Total and Free, Serum (07/05/2021 12:45 PM CDT) Testosterone 45.0 ng/dL [facility] Comment: Interpretive Data Reference values: ? [...] ng/dL and remain there until puberty. See [facility] or contact the laboratory for age related normals in puberty. Adult Males (Greater than or equal to 18 years): 264-916 ng/dL Adult Females (Greater than or equal to 18 years): Premenopausal: 10-55 ng/dL Postmenopausal: 7-40 ng/dL Testing performed by: [facility], [place] [address] Current interpretive data was last revised on 2017 Percent Free Testosterone 0.8 % [facility] Comment: Interpretive Data Testing performed by: [place] [address]. Testosterone, free 3.60 pg/mL [facility] Comment: Interpretive Data Testing performed by: [place] [address]. Sex steroid binding globulin 69.7 nmol/L [facility] Comment: Interpretive Data AGE ? RANGE 1 month-2 years ? 60-252 nmol/L Prepubertal (1-8 years) 72-220 nmol/L Pubertal Males ? 16-100 nmol/L Females ? 36-125 nmol/L Adult Males ? 20-50 years ? 16.5-55.9 nmol/L >=50 years ?19.3-76.4 nmol/L Adult Females 20-50 years ? 24.6-122.0 nmol/L >=50 years ?17.3-125.0 nmol/L Testing performed by: [facility], [place] [address]. Current interpretive data was last revised on 17. Blood 07/05/2021 12:4 5 PM CDT 07/05/2021 2:42 PM CDT us Jimena Lim MD LAB BLOOD ORDERABLES Final Result [facility] Department of Laboratories [place], [place] [id number] documented in this encounter Visit Diagnoses Diagnosis Menorrhagia with irregular cycle Tic disorder Tic disorder, unspecified documented in this encounter Care Teams Translator Relationship Specialty Start Date End Date Cortney Pineda ADMISSIONS CLERK [address] [address] PCP - General 06/09/19 Bassem Cho MD [address] [place] [address] 12/20/18 Vicky Ramachandran, OT [address] [place] [address] Occupational Therapist Occupational Therapy 04/19/21 documented as of this encounter
--- OUTSIDE RECORDS SUMMARY | 2024-10-21 04:46 | XMS_ITS | Encounter Summary ---
Author Organization [facility] Address [address] [place] [address] Phone Care Team Providers Care Crime Analyst Name Role Phone Bassem Cho MD Unavailable [phone] Cortney Pineda NP Primary Care Provider [phone] Vicky Ramachandran OT Unavailable [phone] Reason for Referral * Consultation (Routine) - Closed Specialty Diagnoses / Procedures Referred By Juana richard Referred To Contact Pediatric Plastic Surgery Diagnoses Jimena Castillo MD [address] [place] [address] Phone: tel: fax: [facility] (All Locations) Referral ID Status Reason Start Date Expiration Date V isits Requested Visits Authorized [id number] Closed Specialty Services Required 07/07/2021 08/06/2022 99 99 Question Answer Please select the performing region: [facility] (All Locations) [167] # of visits: 1 * Medication Authorization - Closed Specialty Diagnoses / Procedures Referred By Juana t Referred To Contact Diagnoses Menorrhagia with irregular cycle Procedures [place] MEDROXYPROGESTERONE ACETATE Jimena Lim MD 1 [facility] [address] [place] [address] Phone: tel: fax: Jimena Lim MD Phone: tel: fax: Referral ID Status Reason Start Date Expiration Date Visits Re quested Visits Authorized [id number] Closed 07/05/2021 08/04/2022 1 1 Reason for Visit * Medication Authorization - Closed Specialty Diagnoses / Procedures Referred By Contac t Referred To Contact Diagnoses Menorrhagia with irregular cycle Procedures [place] MEDROXYPROGESTERONE ACETATE Jimena Lim MD [address] [address] Phone: tel: fax: Jimena Lim MD Phone: tel: fax: Referral ID Status Reason Start Date Expiration Date Visits Re quested Visits Authorized [id number] Closed 07/05/2021 08/04/2022 1 1 Encounter Details Date Type Department Care Team (Late st Contact Info) Description 07/05/2021 10:00 AM CDT Office Visit [facility] Adolescent Medicine [facility] 2nd [place] [address] [place] [address] Jimena Lim MD [address] [address] Menorrhagia with irregular cycle (Primary Dx); History [...] on file 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 01/07/2021 9:24 AM [...] 63.51% 07/05 10:32 AM CDT Growth Chart: [facility] (Girls, 2- 20 Years) documented in this encounter Progress Notes * Jimena Lim MD - 07/05/2021 10:00 AM CDT I am seeing Lexie Gross [place] as a consult at the request of Cortney Billy, TROLLEY OPERATOR for heavy, prolonged periods HPI Leixe Oconnell is a 15 y.o. child here for evaluation of abnormal periods. Menarche was at age 8 years. Initial Bleeding pattern: Interval:pretty regular Duration of flow: less than a week; moderate flow Associated symptoms:n/a Dysmenorrhea? No Current Bleeding pattern: has a history of abnormal uterine bleeding, in [facility], was on OCPs for several years, history [...] associated with anovulatory cycles from an immature brtmakqxfmyt-kemiqthsi-xifcyfc axis, and will improve with time. However, [...] and Free, Serum (07/05/2021 12:45 PM CDT) [facility] Testosterone 45.0 ng/dL [facility] Comment: Interpretive Data Reference values: ? Male(ng/dL) [...] ng/dL and remain there until puberty. See [facility] Directory of Services or contact the laboratory for age related normals in puberty. Adult Males (Greater than or equal to 18 years): 264-916 ng/dL Adult Females (Greater than or equal to 18 years): Premenopausal: 10-55 ng/dL Postmenopausal: 7-40 ng/dL Testing performed by: [facility], [place] [address] Current interpretive data was last revised on 2017 Percent Free Testosterone 0.8 % [facility] Comment: Interpretive Data Testing performed by: [place] [address]. Testosterone, free 3.60 pg/mL [facility] Comment: Interpretive Data Testing performed by: [place] [address]. Sex steroid binding globulin 69.7 nmol/L [facility] Comment: Interpretive Data AGE ? RANGE 1 month-2 years ? 60-252 nmol/L Prepubertal (1-8 years) 72-220 nmol/L Pubertal Males ? 16-100 nmol/L Females ? 36-125 nmol/L Adult Males ? 20-50 years ? 16.5-55.9 nmol/L >=50 years ?19.3-76.4 nmol/L Adult Females 20-50 years ? 24.6-122.0 nmol/L >=50 years ?17.3-125.0 nmol/L Testing performed by: [facility], [place] [address]. Current interpretive data was last revised on 17. Blood 07/05/2021 12:4 5 PM CDT 07/05/2021 2:42 PM CDT Jimena Lim MD LAB BLOOD ORDERABLES Final Result Performing Organization Address [facility] [place] [address] * Follicle stimulating hormone (07/05/2021 12:45 PM CDT) FSH 4.8 IUnits/L [facility] Comment: Interpretive Data Males: Pre-pubertal: <4 IUnits/L [...] BLOOD ORDERABLES Final Result Performing Organization Address [facility] [place] [address] * LH (07/05/2021 12:45 PM CDT) LH 11.9 IUnits/L [facility] Comment: Interpretive Data Males: Pre-pubertal: <0.1 IUnits/L [...] BLOOD ORDERABLES Final Result Performing Organization Address City/[facility]/ZIP Co de Phone Number [facility] [place] [address] * TSH reflex to free T4 (07/05/2021 12:45 PM CDT) Pathologist [facility] TSH 0.79 0.30 - 4.20 mcIUnit/mL [facility] Blood 07/05/2021 12:4 5 PM CDT 07/05/2021 1:06 PM CDT Jimena Lim MD LAB BLOOD ORDERABLES Final Result [facility] [place] [address] * Von Willebrand factor activity (07/05/2021 12:45 PM CDT) Pathologist [facility] vWF activity 76 55 - 189 %norm [facility] Comment: Interpretive Data Von Willebrand factor (vWF) [...] von Willebrand factor activity assay. J Thromb Haemost.2011;9:2294-6328. Current interpretive data was last revised on 2013. Testing performed by: [facility], [address] [facility], [place]., [address] Blood 07/05/2021 12:4 5 PM CDT 07/05/2021 2:20 PM CDT Jimena Lim MD LAB BLOOD ORDERABLES Final Result [facility] Department [place] [address] * Reticulocyte Count (07/05/2021 12:45 PM CDT) Retics, absolute 0.053 0.020 - 0.087 M/cumm [facility] Retics 1.2 0.4 - 2.9 % [facility] Reticulocyte Hgb 29.6 28.5 - 38.0 pg [facility] Blood 07/05/2021 12:4 5 PM CDT 07/05/2021 1:06 PM CDT Jimena Lim MD LAB BLOOD ORDERABLES Final Result Performing Organization Address City/[facility]/[place] [address] * Iron profile w/ IBC (07/05/2021 12:45 PM CDT) Iron 40 35 - 145 mcg/dL [facility] TIBC 390 250 - 400 mcg/dL [facility] Transferrin saturation 10 10 - 45 % [facility] Blood 07/05/2021 12:4 5 PM CDT 07/05/2021 1:06 PM CDT Jimena Lim MD LAB BLOOD ORDERABLES Final Result Performing Organization Address City/[facility]/ZIP Co de Phone Number [facility] [place] [address] * (ABNORMAL) Ferritin (07/05/2021 12:45 PM CDT) Ferritin 12(L) 15 - 150 ng/mL [facility] Blood 07/05/2021 12:4 5 PM CDT 07/05/2021 1:06 PM CDT Jimena Lim MD LAB BLOOD ORDERABLES Final Result [facility] [place] [address] * (ABNORMAL) Protime-INR (07/05/2021 12:45 PM CDT) PT 15.4(H) 10.0 - 15.0 sec [facility] INR 1.2 0.8 - 1.2 [facility] Comment: Interpretive data Oral anticoagulant therapeutic ranges: Venous thromboembolism prophylaxis or treatment: 2.0-3.0 CARDIOLOGY Standard range: 2.0-3.0 High-intensity range: 2.5-3.5 Refer to indication-specific guidelines for appropriate target ranges for prosthetic heart valve replacement. Current interpretive data was last revised on 2019. Blood 07/05/2021 12:4 5 PM CDT 07/05/2021 1:06 PM CDT Jimena Lim MD LAB BLOOD [place] [address] * aPTT (07/05/2021 12:45 PM CDT) Pathologist [facility] aPTT 36 27 - 37 sec [facility] Comment: Interpretive Data Therapeutic heparin range: 60.0 - 94.0 seconds. Based on correlation with therapeutic heparin activity range of 0.3-0.7 Units/mL. Current interpretive data was last revised on 2021. Blood 07/05/2021 12:4 5 PM CDT 07/05/2021 1:06 PM CDT Jimena Lim MD LAB BLOOD [place] [address] * Platelet Function Screen (07/05/2021 12:45 PM CDT) PFA-100, epinephrine 88 70 - 170 sec [facility] Comment: Interpretive Data The Collagen/Epinephrine measurement is [...] 2 year reference range was established at [facility]. Neonates < 30 days old: ??Cord blood ranges based on samples (n=7) collected from the unbilical vein within 10 minutes of delivery at [facility], [facility], [place], [place], [place]. ??Reference: ??Maribell ARTHUR, Renetta CASTILLO, Teresita VS. ??Use of the PFA-100 in the Assessment of Primary Platelet Related Hemostasis in a Pediatric Setting. ??Semin Thromb Hemost 1998;24:523-529. Ranges do not exist for newborns up to 2 years of age. Current interpretive data was last revised on 06. PFA-100, ADP 100.0 50.0 - 150.0 sec [facility] Comment: Interpretive Data Closure Time above the [...] Lim MD LAB BLOOD ORDERABLES Final Result [facility] Department [place] [address] * (ABNORMAL) CBC with auto differential (07/05/2021 12:45 PM CDT) WBC 4.9 3.8 - 9.9 K/cumm [facility] Hgb 11.9 11.9 - 15.5 g/dL [facility] Hct 37.3 35.6 - 45.5 % [facility] Plt 384 150 - 400 K/cumm [facility] MPV 9.2 9.1 - 12.3 fL [facility] RBC 4.62 3.90 - 5.20 M/cumm [facility] MCV 80.7(L) 81.3 - 96.4 fL [facility] MCH 25.8(L) 27.1 - 33.3 pg [facility] MCHC 31.9(L) 32.3 - 35.7 g/dL [facility] RDW CV 14.1 11.1 - 14.9 % [facility] RDW SD 40.7 35.7 - 48.1 fL [facility] NRBC abs 0.00 0.00 - 0.01 K/cumm [facility] Blood 07/05/2021 12:4 5 PM CDT 07/05/2021 1:06 PM CDT Jimena Lim MD LAB BLOOD ORDERABLES Final Result [facility] Department [place] [address] * (ABNORMAL) POCT hCG, urine (07/05/2021 11:59 AM CDT) HCG, ur, POC Negative Lot Number [id number] QC Backgroud Clear Acceptable QC Control Line [...] 07/05/2021 added in this encounter Care Teams Crime Analyst Relationship Specialty Start Date End Date Cortney Pineda NP [address] [place] [address] PCP - General 06/09/19 Bassem Cho MD [address] [place] [address] 12/20/18 Vicky Ramachandran OT [address] [place] [address] Occupational Therapist Occupational Therapy 04/19/21 documented as of this encounter
--- OUTSIDE RECORDS SUMMARY | 2024-10-21 04:46 | XMS_ITS | Encounter Summary ---
Author Organization [facility] Address [address] [place] [address] Phone Care Team Providers Care Support Engineer Name Role Phone Bassem Cho MD Unavailable [phone] Cortney Pineda NP Primary Care Provider [phone] Vicky Ramachandran OT Unavailable [phone] Encounter Details Date Type Department Care Team (Late st Contact Info) Description 05/16/2021 9:30 AM CDT Office Visit [facility] Pediatric Neurology [address] [place] [id number] Negrita Pride MD PhD [id number] [place] [address] Gender dysphoria (Primary Dx); Functional neurological symptom disorder with mixed symptoms; Anxiety Social History Tobacco Use Types Packs/Day Years Used Date Smoking Tobacco: Never Smokeless Tobacco: Never Alcohol Use Standard Drinks/Week Comments No 0 (1 standard drink = 0.6 oz pur e alcohol) Comments No Sex and Gender Information Value Date Recorded Sex Assigned at Not on file 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 01/07/2021 9:24 AM [...] 05/16/2021 9:3 8 AM CDT Growth Chart: [facility] (Girls, 2- 20 Years) documented in [...] from the original note were not included. [facility] Cerebral Palsy and Movement Disorders [...] the family. She had 4 hospitalizations over [phone]. Mood is relatively controlled on Depakote, Clonazepam, [...] reflex flexor bilaterally. Coordination: No dysmetria on tiyger-br-mbud bilaterally Gait: Narrow base, steady. Normal tandem [...] questions, feel free to contact me at [phone]. I have provided the family with contact [...] reportable services. Sincerely, Negrita Pride MD PhD Atmospheric Scientist of Neurology Division of Pediatric Neurology Cerebral [...] documented as of this encounter Care Teams Support Engineer Relationship Specialty Start Date End Date Cortney Pineda EMAIL MANAGER [address] [address] PCP - General 06/09/19 Bassem Cho MD [address] [place] [address] 12/20/18 Vicky Ramachandran, OT [address] [place] [address] Occupational Therapist Occupational Therapy 04/19/21 documented as of this encounter
--- OUTSIDE RECORDS SUMMARY | 2024-10-21 04:46 | XMS_ITS | Encounter Summary ---
Author Organization [facility] Address [address] [place] [address] Phone Care Team Providers Care Warehouse Incentive Selector Name Role Phone Bassem Cho MD Unavailable [phone] Cortney Pineda NP Primary Care Provider [phone] Vicky Ramachandran OT Unavailable [phone] Reason for Visit * Reason Comments OT Treatment * Consultation (Routine) - Closed Specialty Diagnoses / Procedures Referred By Contact Referred To Contact Pediatric Occupational Therapy Diagnoses Tic disorder Negrita Pride MD PhD [address] [place] [address] Phone: tel: fax: [facility] (All Locations) Referral ID Status Reason Start Date Expiration Date V isits Requested Visits Authorized [id number] Closed Specialty Services Required 11/29/2020 12/29/2021 24 24 Encounter Details Date Type Department Care Team (Late st Contact Info) Description 04/27/2021 9:00 AM CDT Therapy [facility] Occupational Therapy [address] [place] [address] Vicky Ramachandran, OT [address] [place] [address] Tic disorder (Primary Dx) Social History Tobacco Use Types Packs/Day Years Used Date Smoking Tobacco: Never Smokeless Tobacco: Never Alcohol Use Standard Drinks/Week Comments No 0 (1 standard drink = 0.6 oz pur e alcohol) Comments No Sex and Gender Information Value Date Recorded Sex Assigned at Not on file Legal Sex Female 6:43 AM BINGO ATTENDANT Gender Identity . 01/07/2021 9:24 AM [...] tx protocol will be shifted to tic regional sales trainer. Ct will benefit from continued OT [...] zero meals, on 2/2 wk's Progressing (04/27/2021) Correction Goals: 1. Client and caregiver will [...] unspecified documented in this encounter Care Teams Warehouse Incentive Selector Relationship Specialty Start Date End Date Cortney Pineda NP [address] [place] [address] PCP - General 06/09/19 Bassem Cho MD [address] [place] [address] 12/20/18 Vicky Ramachandran OT [address] [place] [address] Occupational Therapist Occupational Therapy 04/19/21 documented as of this encounter
--- OUTSIDE RECORDS SUMMARY | 2024-10-21 04:46 | XMS_ITS | Encounter Summary ---
Author Organization [facility] Address [address] [place] [address] Phone Care Team Providers Care Plastic Welding Machine Operator Name Role Phone Bassem Cho MD Unavailable [phone] Cortney Pineda NP Primary Care Provider [phone] Vicky Ramachandran OT Unavailable [phone] Reason for Visit * Reason Comments OT Treatment * Consultation (Routine) - Closed Specialty Diagnoses / Procedures Referred By Contact Referred To Contact Pediatric Occupational Therapy Diagnoses Tic disorder Negrita Pride MD PhD [address] [place] [address] Phone: tel: fax: [facility] (All Locations) Referral ID Status Reason Start Date Expiration Date V isits Requested Visits Authorized [id number] Closed Specialty Services Required 11/29/2020 12/29/2021 24 24 Encounter Details Date Type Department Care Team (Late st Contact Info) Description 05/30/2021 11:[address] 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 01/07/2021 9:24 AM [...] weakness. ?? Min verbal ed on Tic Oncology Research Rn as another way to manage her tics. Ct did not feel she be able to use suppression. ?? Ct id she like to shift tx to manage her FND symptoms. ?? Eating: Ct stated ze did not eat breakfast this AM and does not eat breakfast school photographs detailer. OTRasked ct what was her AM routine. [...] improve tic management to facilitate improved success with[place] and community activities. Goals for Occupational Therapy [...] 3/4 weeks within 2 months. Progressing (05/30/2021) Latex Spooler Goals: 1. Client and caregiver will create [...] Anxiety documented in this encounter Care Teams Plastic Welding Machine Operator Relationship Specialty Start Date End Date Cortney Pineda NP [address] [place] [address] PCP - General 06/09/19 Bassem Cho MD [address] [place] [address] 12/20/18 Vicky Ramachandran, OT [address] [place] [address] Occupational Therapist Occupational Therapy 04/19/21 documented as of this encounter
--- OUTSIDE RECORDS SUMMARY | 2024-10-21 04:46 | XMS_ITS | Encounter Summary ---
Author Organization [facility] Address [address] [place] [address] Phone Care Team Providers Care Combine Mechanic Name Role Phone Bassem Cho MD Unavailable Cortney Pineda NP Primary Care Provider [phone] Vicky Ramachandran OT Unavailable [phone] Reason for Visit * Reason Onset Date Comments Forms/questionnaires 06/10/2021 Encounter Details Date Type Department Care Team (Late st Contact Info) Description 06/10/2021 Telephone [facility] Pediatric Neurology [address] [place] [address] Negrita Pride MD PhD [id number] [place] [address] Forms/questionnaires Social History Tobacco Use Types Packs/Day Years Used Date Smoking Tobacco: Never Smokeless Tobacco: Never Alcohol Use Standard Drinks/Week Comments No 0 (1 standard drink = 0.6 oz pur e alcohol) Comments No Sex and Gender Information Value Date Recorded Sex Assigned at Not on file Legal Sex Female 6:43 AM YOUTH MANAGER Gender Identity . 01/07/2021 9:24 AM [...] [facility] ATTN: Nuria F: [phone] * Telephone Encounter - Doreen Norton - 06/14/2021 4:27 PM CDT Mom is calling in stating that the PCP's office received the fax yesterday, but it was hard to read. They are requesting that the paperwork be refaxed too: [phone] and [phone]. She is also requesting them to be emailed to: [email or web address] * Telephone Encounter - Mera Patel MA [...] on filedocumented in this encounter Care Teams Combine Mechanic Relationship Specialty Start Date End Date Cortney Pineda NP [address] [address] PCP - General 06/09/19 Bassem Cho MD [address] [place] [address] 12/20/18 Vicky Ramachandran OT [address] [place] [address] Occupational Therapist Occupational Therapy 04/19/21 documented as of this encounter
--- OUTSIDE RECORDS SUMMARY | 2024-10-21 04:46 | XMS_ITS | Encounter Summary ---
Author Organization [facility] Address [address] [place] [address] Phone Care Team Providers Care Transportation Aide Name Role Phone Bassem Cho MD Unavailable [phone] Cortney Pineda NP Primary Care Provider [phone] Vicky Ramachandran OT Unavailable [phone] Reason for Visit * Reason Onset Date Comments Scheduling Appointments 08/30/2021 Encounter Details Date Type Department Care Team (Late st Contact Info) Description 08/30/2021 Telephone [facility] Occupational Therapy [address] [place] [address] Vicky Ramachandran OT [address] [place] [address] Scheduling Appointments Social History Tobacco Use Types Packs/Day Years Used Date Smoking Tobacco: Never Smokeless Tobacco: Never Alcohol Use Standard Drinks/Week Comments No 0 (1 standard drink = 0.6 oz pur e alcohol) Comments No Sex and Gender Information Value Date Recorded Sex Assigned at Not on file Legal Sex Female 6:43 AM TECHNICAL BUSINESS ANALYST Gender Identity . 01/07/2021 9:24 AM CDT Sexual Orientation Not on file documented as of this encounter Miscellaneous Notes * Telephone Encounter - Vicky Ramachandran OT - 08/30/2021 12:46 PM CST Left message to call and schedule follow up appts as ct was last seen on 05/30 NICAL BUSINESS ANALYST documented in this encounter Plan of Treatment Not on file documented as of this encounter Visit Diagnoses Not on filedocumented in this encounter Care Teams Transportation Aide Relationship Specialty Start Date End Date Cortney Pineda PRODUCT BLENDING SUPERVISOR [address] [place] [address] PCP - General 06/09/19 Bassem Cho MD [address] [place] [address] 12/20/18 Vicky Ramachandran OT [address] [place] [address] Occupational Therapist Occupational Therapy 04/19/21 documented as of this encounter
--- OUTSIDE RECORDS SUMMARY | 2024-10-21 04:47 | XMS_ITS | Encounter Summary ---
Author Organization [facility] Address [address] [place] [address] Phone Care Team Providers Care Student Education Specialist Name Role Phone Bassem Cho MD Primary Care Provider Bassem Cho MD Unavailable [phone] Encounter Details Date Type Department Care Team (Late st Contact Info) Description 03/26/2019 Telephone [facility] Scheduling [address] [place] [address] Lexie Perla Social History Tobacco Use Types Packs/Day Years Used Date Smoking Tobacco: Never Smokeless Tobacco: Never Alcohol Use Standard Drinks/Week Comments No 0 (1 standard drink = 0.6 oz pur e alcohol) Comments Unknown Sex and Gender Information Value Date Recorded Sex Assigned at Not on file Legal Sex Female 6:43 AM KEYPUNCHER Gender Identity . 01/07/2021 9:24 AM CDT [...] on filedocumented in this encounter Care Teams Student Education Specialist Relationship Specialty Start Date End Date Bassem Cho MD [address] [place] [address] PCP - General Pediatrics 12/20/18 06/08/19 Bassem Cho MD [address] [place] [address] 12/20/18 documented as of this encounter
--- OUTSIDE RECORDS SUMMARY | 2024-10-21 04:47 | XMS_ITS | Encounter Summary ---
Author Organization [facility] Healthcare Address [address] [place] [address] Care Team Providers Care Materials Coordinator Name Role Phone Bassem Cho MD Primary Care Provider Reason for Visit * Reason Comments Respiratory Distress Encounter Details Date Type Department Care Team (Late st Contact Info) Description 07/18/2018 5:15 PM CDT - 07/20/2018 3:45 PM CDT Emergency [facility] [address] [place] [address] Feng Chavez MD [address] [address] Concha Sousa MD [address] [place] [address] Surinder Steven MD [address] [address] Persistent cough for 3 weeks or longer [...] on file Legal Sex Female 6:43 AM OPERATIONAL COMMUNICATION CHIEF Gender Identity . 01/07/2021 9:24 AM CDT [...] 94.90% 07/18 11:09 PM CDT Growth Chart: [facility] (Girls, 2- 20 Years) documented in this encounter Discharge Summaries * Nik Rogers MD PhD - 07/20/2018 7:37 AM CDT Inpatient Discharge Summary BRIEF OVERVIEW Admitting Provider: Surinder Steven MD Discharge Provider: Surinder Steven MD Primary Care Physician at Discharge: Zak Cho MD [phone] Admission Date: 07/18/2018 Discharge Date: 07/20/2018 Admission Location: [facility] Primary Discharge Diagnosis: Mild persistent asthma Secondary [...] experienced before and was seen in the [facility] ER on 07/16, where she had a [...] Discharge Instructions: Please follow up with your Statement Request Clerk regarding the management of your asthma symptoms [...] future appointments. Contact Information for Follow-ups Zak hCo MD Specialty: Pediatrics Relationship: PCP - General [address] [place] [address] [address] [place] [address] Next Steps: Follow up Instructions: Per this Office they prefer there Families to arrange any appointment needed with there Office. Thank you documented in this encounter Discharge Instructions * Discharge Instructions* Mirtha Nieto MD - 07/20/2018 10:30 AM CDT [...] following: Instructions: Please follow up with your Statement Request Clerk regarding the management of your asthma symptoms [...] Everywhere. * Asthma in Children (Discharge Care) (Belarusian) documented in this encounter Medications at Time [...] (156 lb 12 oz) Total Protein DRI (NEONATAL DOCTOR/AI): 67.54 Protein DRI grams/kg/day: 0.95 Baseline Fluid [...] Pediatric Diet Regular Diet effective now Question: ([facility]) Diet type Answer: Regular 07/18/18 2311 Care [...] Will follow per policy. Adriana Patino, RD [facility] [phone] documented in this encounter H&P Notes * [...] coughing spells. She was seen by her Statement Request Clerk several times during the first 2 weeks [...] persisted and worsened. She wasseen in the [facility] ER on 07/16 for wheezing, where she [...] mother. Instructions reviewed and mother agreed to nut picker prescriptions. Patient and mother verbalize understanding [...] diagnosed with pneumonia. Pt seen here in [facility] ED 07/16 with identical symptoms, showed negative [...] diagnosed with pneumonia. Pt seen here in [facility] ED 07/16 with identical symptoms, showed negative [...] on exertion Lenny Benavidez MD Resident 07/18/18 2679 Cosigned by Feng Chavez MD at 07/18/2018 [...] Care - Papa Boyle RN - 07/19/2018 3:39 AM CDT Goals: [...] coughing spells. She was seen by her Statement Request Clerk several times during the first 2 weeks [...] persisted and worsened. She wasseen in the [facility] ER on 07/16 for wheezing, where she [...] Conv) No alcohol use : (Added by USEUM Conv) No illicit drug use : (Added by USEUM Conv) Student : (Added by USEUM Conv) Lexie is currently in the 8th [...] Respiratory Pathogen nucleic acids NOT DETECTED (NEGATIVE) [facility] Nasopharyngeal 07/18/2018 7: 01 PM CDT 07/18/2018 7:03 PM CDT Baltazar BRAUN [facility] - 07/18/2018 8:28 PM CDT The MOWGLI FilmArray Respiratory Panel (RP) assay is a [...] LAB MICROBIOLOGY - GENERAL ORDERABLES Final Result [facility] [place] [address] documented in this encounter Visit Diagnoses Diagnosis [...] mg 2.5 mg, nebulization, Every 2 hours (security incident response engineer), First dose on Sun07/19/18 at 0000, As needed if administering albuterol with ipratropium per nebulizer or unable to give MDI Given 07/19/2018 10:26 AM CDT 2.5 mg Given 07/19/2018 8:21 AM CDT 2.5 mg Given 07/19/2018 6:25 AM CDT 2.5 mg albuterol (PROVENTIL,VENTOLIN) 2.5 mg/0.5 mL nebulizer solution 2.5 mg 2.5 mg, nebulization, Every 3 hours (security incident response engineer), First dose (after last modification) on Sun07/19/18 at 1300, As needed if administering albuterol with ipratropium per nebulizer or unable to give MDI Given 07/19/2018 1:42 PM CDT 2.5 mg albuterol (PROVENTIL,VENTOLIN) 2.5 mg/0.5 mL nebulizer solution 2.5 mg 2.5 mg, nebulization, Every 4 hours (security incident response engineer), First dose (after last modification) on [facility] 07/20/18 at 0900, As needed if administering [...] puff 4 puff, inhalation, Every 3 hours (security incident response engineer), First dose (after last modification) on Sun07/19/18 at 1300 Given 07/20/2018 2:03 AM CDT 4 puffs Given 07/19/2018 11:07 PM CDT 4 puffs Given 07/19/2018 8:05 PM CDT 4 puffs albuterol HFA (PROVENTIL HFA,VENTOLIN HFA,PROAIR HFA) 90 mcg/actuation inhaler 4 puff 4 puff, inhalation, Every 4 hours (security incident response engineer), First dose (after last modification) on Sun07/20/18 [...] 9:28 PM CDT 1,500 mg influenza quadrivalent [id number] (FLULAVAL,FLUARIX) 60 mcg (15 mcg x 4)/0.5 [...] mg 0.5 mg, nebulization, Every 6 hours (security incident response engineer), First dose on Sun07/18/18 at 2345 Given [...] (CANCELED) 2.5 mg, nebulization, Every 2 hours (security incident response engineer), First dose on Sun07/19/18 at 0000, As [...] (CANCELED) 2.5 mg, nebulization, Every 3 hours (security incident response engineer), First dose (after last modification) on Sun07/19/18 at 1300, As needed if administering albuterol with ipratropium per nebulizer or unable to give MDI 1342 (Given - Provider: Gracy Gomez RRT)1700 (See Alternative - Provider: Gracy Gomez RRT)2005 (See Alternative - Provider: Tayler Kerns RRT)2307 (See Alternative - Provider: Tayler Kerns RRT) 0203 (See Alternative - Provider: Tayler Kerns RRT)0500 (Not Given - Provider: Tayler Kerns RRT - Reason: See Provider Order - Comment: spaced to Q4) albuterol (PROVENTIL,VENTOLIN) 2.5 mg/0.5 mL nebulizer solution 2.5 mg(Linked Group 1) 2.5 mg, nebulization, Every 4 hours (security incident response engineer), First dose (after last modification) on Sun07/20/18 [...] (CANCELED) 4 puff, inhalation, Every 3 hours (security incident response engineer), First dose (after last modification) on Sun07/19/18 [...] 1) 4 puff, inhalation, Every 4 hours (security incident response engineer), First dose (after last modification) on Sun07/20/18 [...] (CANCELED) 0.5 mg, nebulization, Every 6 hours (security incident response engineer), First dose on Mami 07/18/18 at 2345 0046 (Given - Provider: Bridgette Petty, ZIGGY)0625 (Given - Provider: Bridgette Petty RRT)1342 (Given - Provider: Gracy Gomez, CORPORATE QUALITY ENGINEER) predniSONE (DELTASONE) tablet 60 mg 60 mg, [...] For 1 dose 0257 (Given - Provider: Paap Boyle RN) PRN Medication Order 07/18/2018 07/19/2018 07/20/2018 influenza quadrivalent [id number] (FLULAVAL,FLUARIX) 60 mcg (15 mcg x 4)/0.5 mL vaccine (STANDARD age 6 months and up) 0.5 mL (COMPLETED) 0.5 mL, intramuscular, During hospitalization, immunization, Starting on Sun07/19/18 at 0109, For 1 dose 1552 (Given - Provider: Ariana Ambriz RN) Linked Groups Order Group 1: albuterol HFA (PROVENTIL HFA,VENTOLIN HFA,PROAIR HFA) 90 mcg/actuation inhaler 4 puffJump to med 4 puff, inhalation, Every 4 hours (security incident response engineer), First dose (after last modification) on 07/20/18 at 0900 Or albuterol (PROVENTIL,VENTOLIN) 2.5 mg/0.5 mL nebulizer solution 2.5 mgJump to med 2.5 mg, nebulization, Every 4 hours (security incident response engineer), First dose (after last modification) on 07/20/18 [...] 07/18/2018 documented in this encounter Care Teams Materials Coordinator Relationship Specialty Start Date End Date Bassem Cho MD [address] [facility] [address] [place] [address] PCP - General 01/17/17 12/19/18 documented as of this encounter
--- OUTSIDE RECORDS SUMMARY | 2024-10-21 04:47 | XMS_ITS | Encounter Summary ---
Author Organization [facility] Address [address] [place] [address] Phone Care Team Providers Care Employment Case Manager Name Role Phone Bassem Cho MD Unavailable [phone] Cortney Pineda NP Primary Care Provider Reason for Visit * Reason Comments OT Treatment * Consultation (Routine) - Closed Specialty Diagnoses / Procedures Referred By Contact Referred To Contact Pediatric Occupational Therapy Diagnoses Tic disorder Negrita Pride MD PhD [id number] [place] [address] Phone: tel: fax: [facility] (All Locations) Referral ID Status Reason Start Date Expiration Date V isits Requested Visits Authorized [id number] Closed Specialty Services Required 11/29/2020 12/29/2021 24 24 Encounter Details Date Type Department Care Team (Late st Contact Info) Description 02/04/2021 2:00 PM CDT Therapy [facility] Occupational Therapy [address] [place] [address] Vicky Ramachandran, OT [address] [place] [address] Tic disorder (Primary Dx) Social History Tobacco Use Types Packs/Day Years Used Date Smoking Tobacco: Never Smokeless Tobacco: Never Alcohol Use Standard Drinks/Week Comments No 0 (1 standard drink = 0.6 oz pur e alcohol) Comments No Sex and Gender Information Value Date Recorded Sex Assigned at Not on file Legal Sex Female 6:43 AM FELTER TENNIS BALLS Gender Identity . 01/07/2021 9:24 AM CDT [...] number of tics 2/[address] [employer] [address] [employer] reported stress from noise [...] 3/4 weeks within 2 months. New (12/23/2020) Detention Goals: 1. Client and caregiver will create [...] unspecified documented in this encounter Care Teams Employment Case Manager Relationship Specialty Start Date End Date Cortney Pineda NP [address] [place] [address] PCP - General 06/09/19 Bassem Cho MD [address] [facility] [address] [place] [address] 12/20/18 documented as of this encounter
--- OUTSIDE RECORDS SUMMARY | 2024-10-21 04:47 | XMS_ITS | Encounter Summary ---
Author Organization [facility] Address [address] [place] [address] Phone Care Team Providers Care Relief Man Name Role Phone Bassem Cho MD Unavailable [phone] Cortney Pineda NP Primary Care Provider [phone] Encounter Details Date Type Department Care Team (Late st Contact Info) Description 06/10/2019 Telephone [facility] Pediatric Neurology [facility] 2nd [place] [address] [place] [address] Vicky Finnegan RN Social History Tobacco Use Types Packs/Day Years Used Date Smoking Tobacco: Never Smokeless Tobacco: Never Alcohol Use Standard Drinks/Week Comments No 0 (1 standard drink = 0.6 oz pur e alcohol) Comments Unknown Sex and Gender Information Value Date Recorded Sex Assigned at Not on file Legal Sex Female 6:43 AM GALLERY INTERN Gender Identity . 01/07/2021 9:24 AM [...] sent at 06/09/2019 9:28 PM CDT ----- [facility] Nurses -- Could someone notify Lexie's family of normal MRI and EEG? Thanks! documented in this encounter Plan of Treatment Not on file documented as of this encounter Visit Diagnoses Not on filedocumented in this encounter Care Teams Relief Man Relationship Specialty Start Date End Date Cortney Pineda TAP DANCER [address] [place] [address] PCP - General 06/09/19 Bassem Cho MD [address] [facility] [address] [place] [address] 12/20/18 documented as of this encounter
--- OUTSIDE RECORDS SUMMARY | 2024-10-21 04:47 | XMS_ITS | Encounter Summary ---
Author Organization [facility] Address [address] [place] [address] Phone Care Team Providers Care Spindle Sander Name Role Phone Bassem Cho MD Unavailable [phone] Cortney Pineda NP Primary Care Provider [phone] Reason for Visit * Reason Comments OT Treatment * Consultation (Routine) - Closed Specialty Diagnoses / Procedures Referred By Contact Referred To Contact Pediatric Occupational Therapy Diagnoses Tic disorder Negrita Pride MD PhD [id number] [place] [address] Phone: tel: fax: [facility] (All Locations) Referral ID Status Reason Start Date Expiration Date V isits Requested Visits Authorized [id number] Closed Specialty Services Required 11/29/2020 12/29/2021 24 24 Encounter Details Date Type Department Care Team (Late st Contact Info) Description 02/15/2021 3:00 PM CDT Therapy [facility] Occupational Therapy [address] [place] [address] Vicky Ramachandran, OT [address] [place] [address] Tic disorder (Primary Dx) Social History Tobacco Use Types Packs/Day Years Used Date Smoking Tobacco: Never Smokeless Tobacco: Never Alcohol Use Standard Drinks/Week Comments No 0 (1 standard drink = 0.6 oz pur e alcohol) Comments No Sex and Gender Information Value Date Recorded Sex Assigned at Not on file Legal Sex Female 6:43 AM PARTNER MARKETING MANAGER Gender Identity . 01/07/2021 9:24 AM [...] 3/4 weeks within 2 months. New (12/23/2020) Route Driver Salesperson Goals: 1. Client and caregiver will create [...] unspecified documented in this encounter Care Teams Spindle Sander Relationship Specialty Start Date End Date Cortney Pineda, ADMINISTRATIVE RESIDENT [address] [place] [address] PCP - General 06/09/19 Bassem Cho MD [address] [facility] [address] [place] [address] 12/20/18 documented as of this encounter
--- OUTSIDE RECORDS SUMMARY | 2024-10-21 04:47 | XMS_ITS | Encounter Summary ---
Author Organization [facility] Address [address] [place] [address] Phone Care Team Providers Care Assistant Therapy Aide Name Role Phone Bassem Cho MD Unavailable [phone] Cortney Pineda NP Primary Care Provider [phone] Reason for Visit * Reason Comments OT Treatment * Consultation (Routine) - Closed Specialty Diagnoses / Procedures Referred By Contact Referred To Contact Pediatric Occupational Therapy Diagnoses Tic disorder Negrita Pride MD PhD [id number] [place] [address] Phone: tel: fax: [facility] (All Locations) Referral ID Status Reason Start Date Expiration Date V isits Requested Visits Authorized [id number] Closed Specialty Services Required 11/29/2020 12/29/2021 24 24 Encounter Details Date Type Department Care Team (Late st Contact Info) Description 01/26/2021 2:00 PM CDT Therapy [facility] Occupational Therapy [address] [place] [address] Vicky Ramachandran, OT [address] [place] [address] Tic disorder (Primary Dx) Social History Tobacco Use Types Packs/Day Years Used Date Smoking Tobacco: Never Smokeless Tobacco: Never Alcohol Use Standard Drinks/Week Comments No 0 (1 standard drink = 0.6 oz pur e alcohol) Comments No Sex and Gender Information Value Date Recorded Sex Assigned at Not on file 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 01/07/2021 9:24 AM [...] unspecified documented in this encounter Care Teams Assistant Therapy Aide Relationship Specialty Start Date End Date Cortney Pineda TONG HOOKER [address] [facility] [place] [address] PCP - General 06/09/19 Bassem Cho MD [address] [facility] [address] [place] [address] 12/20/18 documented as of this encounter
--- OUTSIDE RECORDS SUMMARY | 2024-10-21 04:47 | XMS_ITS | Encounter Summary ---
Author Organization [facility] Healthcare Address [address] [place] [address] Care Team Providers Care Rounder And Backer Name Role Phone Bassem Cho MD Primary Care Provider Encounter Details Date Type Department Care Team (Latest Contact Info) Description 01/26/2017 10:30 AM CDT - 01/28/2017 10:30 AM CDT Hospital Encounter [facility] OP Herbert Recio MD [address] [facility] [address] [place] [address] Muscle spasm of back Social History Tobacco Use Types Packs/Day Years Used Date Smoking Tobacco: Never Assessed Comments Unknown Sex and Gender Information Value Date Recorded Sex Assigned at Not on file 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 01/07/2021 9:24 AM CDT Sexual Orientation Not on file documented as of this encounter Plan of Treatment Not on file documented as of this encounter Visit Diagnoses Diagnosis Muscle spasm of back documented in this encounter Care Teams Rounder And Backer Relationship Specialty Start Date End Date Bassem Cho MD [address] [facility] [address] [place] [address] PCP - General 01/17/17 12/19/18 documented as of this encounter
--- OUTSIDE RECORDS SUMMARY | 2024-10-21 04:47 | XMS_ITS | Encounter Summary ---
Author Organization [facility] Address [address] [place] [address] Phone Care Team Providers Care Foxing Painter Name Role Phone Bassem Cho MD Primary Care Provider Bassem Cho MD Unavailable [phone] Encounter Details Date Type Department Care Team (Late st Contact Info) Description 05/12/2019 Telephone [facility] Pediatric Neurology [facility] 2nd [place] [address] [place] [address] Radha Minor MA Social History Tobacco Use Types Packs/Day Years Used Date Smoking Tobacco: Never Smokeless Tobacco: Never Alcohol Use Standard Drinks/Week Comments No 0 (1 standard drink = 0.6 oz pur e alcohol) Comments Unknown Sex and Gender Information Value Date Recorded Sex Assigned at Not on file 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 01/07/2021 9:24 AM [...] 1:00 for a mri brain w/o at [facility]. S/w Radha over the phone. Thanks documented in this encounter Plan of Treatment Not on file documented as of this encounter Visit Diagnoses Not on filedocumented in this encounter Care Teams Foxing Painter Relationship Specialty Start Date End Date Bassem Cho MD [address] [facility] [address] [place] [address] PCP - General Pediatrics 12/20/18 06/08/19 Bassem Cho MD [address] [facility] [address] [place] [address] 12/20/18 documented as of this encounter
--- OUTSIDE RECORDS SUMMARY | 2024-10-21 04:47 | XMS_ITS | Encounter Summary ---
Author Organization [facility] Healthcare Address [address] [place] [address] Care Team Providers Care Checkerer Hand Name Role Phone Bassem Cho MD Unavailable [phone] Cortney Pineda NP Primary Care Provider [phone] Reason for Referral * Neurology (Routine) - Closed Specialty Diagnoses / Procedures Referred By Juana richard Referred To Contact Neurology Diagnoses Nonspecific paroxysmal spell Procedures EEG Marco Myles MD Phone: tel: fax: Referral ID Status Reason Start Date Expiration Date Visits Re quested Visits Authorized [id number] Closed 05/11/2019 11/19/2020 1 1 Reason for Visit * Neurology (Routine) - Closed Specialty Diagnoses / Procedures Referred By Juana richard Referred To Contact Neurology Diagnoses Nonspecific paroxysmal spell Procedures EEG Marco Myles MD Phone: tel: fax: Referral ID Status Reason Start Date Expiration Date Visits Re quested Visits Authorized [id number] Closed 05/11/2019 11/19/2020 1 1 Encounter Details Date Type Department Care Team (Latest Contact Info) Description 06/09/2019 11:00 AM CDT - 06/09/2019 1:02 PM CDT Hospital Encounter [facility] [place] [address] Lorenza Mares MD PhD [address] [place] [address] Nonspecific paroxysmal spell Discharge Disposition: Discharge to home or self care Social History Tobacco Use Types Packs/Day Years Used Date Smoking Tobacco: Never Smokeless Tobacco: Never Alcohol Use Standard Drinks/Week Comments No 0 (1 standard drink = 0.6 oz pur e alcohol) Comments Unknown Sex and Gender Information Value Date Recorded Sex Assigned at Not on file 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 01/07/2021 9:24 AM [...] Routine EEG Report Patient Name: LEXIE NUR [facility] Medical Record Number (MRN): [id number] [facility] Medical Record Number (MRN): [id number] Date of (): 2005 EEG Date: 06/09/2019 Location: [facility] EEG Laboratory Ordering Provider: Marco Myles MD CC: Cortney Pineda History (from professor of industrial technology sheet): Lexie is a 13 ??y.o. 9 ??m.o. girl undergoing EEG for evaluation of seizure(s). She has a history of episodes of whole body jerking lasting a few minutes. ?? Medications: Depakote, clonazepam, Effexor, Orapred?, [place], symbicort, albuterol EEG technical description: A routine EEG with scalp electrodes was performed using the [employer] monitoring system to record EEG data digitally. [...] spell documented in this encounter Care Teams Checkerer Hand Relationship Specialty Start Date End Date Cortney Pineda NP [address] [place] [address] PCP - General 06/09/19 Bassem Cho MD [address] [facility] [address] [place] [address] 12/20/18 documented as of this encounter
--- OUTSIDE RECORDS SUMMARY | 2024-10-21 04:47 | XMS_ITS | Encounter Summary ---
Author Organization [facility] Healthcare Address [address] [place] [address] Care Team Providers Care Senior Architect Name Role Phone Bassem Cho MD Primary Care Provider Encounter Details Date Type Department Care Team (Late st Contact Info) Description 03/13/2017 5:28 PM CDT Hospital Encounter [facility] OP Bassem Cho MD [address] [facility] [address] [address] [place] [id number] Pain in right ankle Social History Tobacco Use Types Packs/Day Years Used Date Smoking Tobacco: Never Assessed Comments Unknown Sex and Gender Information Value Date Recorded Sex Assigned at Not on file 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 01/07/2021 9:24 AM CDT [...] ankle documented in this encounter Care Teams Senior Architect Relationship Specialty Start Date End Date Bassem Cho MD [address] [facility] [address] [address] [place] [address] PCP - General 01/17/17 12/19/18 documented as of this encounter
--- OUTSIDE RECORDS SUMMARY | 2024-10-21 04:47 | XMS_ITS | Encounter Summary ---
Author Organization [facility] Address [address] [place] [address] Phone Care Team Providers Care Commercial Director Name Role Phone Bassem Cho MD Unavailable [phone] Cortney Pineda NP Primary Care Provider [phone] Reason for Visit * Reason Comments OT Treatment * Consultation (Routine) - Closed Specialty Diagnoses / Procedures Referred By Contact Referred To Contact Pediatric Occupational Therapy Diagnoses Tic disorder Negrita Pride MD PhD [address] [place] [address] Phone: tel: fax: [facility] (All Locations) Referral ID Status Reason Start Date Expiration Date V isits Requested Visits Authorized [id number] Closed Specialty Services Required 11/29/2020 12/29/2021 24 24 Encounter Details Date Type Department Care Team (Late st Contact Info) Description 01/12/2021 2:00 PM CDT Therapy [facility] Occupational Therapy [address] [place] [phone] Vicky Ramachandran, OT [address] [place] [address] Tic disorder (Primary Dx) Social History Tobacco Use Types Packs/Day Years Used Date Smoking Tobacco: Never Smokeless Tobacco: Never Alcohol Use Standard Drinks/Week Comments No 0 (1 standard drink = 0.6 oz pur e alcohol) Comments No Sex and Gender Information Value Date Recorded Sex Assigned at Not on file 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 01/07/2021 9:24 AM [...] Score Percentile Behavioral Regulation Index 82 99 [place] Cogntion Index 83 99 Behavorial Shift 86 99 Cognitive Regulation Index 74 99 Client's Index scores are above 2 deviations in Behavioral Regulation Index and [place] Cognition Index. Client's Shift score are above [...] 3/4 weeks within 2 months. New (12/23/2020) Long-Term Goals: 1. Client and caregiver will create [...] unspecified documented in this encounter Care Teams Commercial Director Relationship Specialty Start Date End Date Cortney Pineda, HYDROGEOLOGIST [address] [facility] [place] [address] PCP - General 06/09/19 Bassem Cho MD [address] [facility] [facility] [place] [address] 12/20/18 documented as of this encounter
--- OUTSIDE RECORDS SUMMARY | 2024-10-21 04:47 | XMS_ITS | Encounter Summary ---
Author Organization [facility] Healthcare Address [address] [place] [address] Care Team Providers Care Traffic Or System Dispatcher Name Role Phone Bassem Cho MD Primary Care Provider Encounter Details Date Type Department Care Team (Latest Contact Info) Description 10/11/2017 8:44 AM PUBLIC TRANSIT SPECIALIST - 10/11/2017 11:59 PM PUBLIC TRANSIT SPECIALIST Hospital Encounter [facility] [phone] [place] [address] [place] [address] Discharge Disposition: Discharge to home or self care Social History Tobacco Use Types Packs/Day Years Used Date Smoking Tobacco: Never Assessed Comments Unknown Sex and Gender Information Value Date Recorded Sex Assigned at Not on file 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 01/07/2021 9:24 AM [...] NON WT 1V Routine 10/11/2017 2:57 PM PUBLIC TRANSIT SPECIALIST documented in this encounter Results * XR Spine (Entire) Non Wt 1V (10/11/2017 2:57 PM PUBLIC TRANSIT SPECIALIST) Anatomical Region Laterality Modality Spine N/A Radiographic Veda ging 10/11/2017 2:57 PM PUBLIC TRANSIT SPECIALIST Narrative 10/11/2017 3:25 PM PUBLIC TRANSIT SPECIALIST REJI TREJO M.D. FINAL REPORT ACC# ??Date Time ??Exam [id number] Oct 11, 2017 08:57:00 [id number] SCOLI T/L SPINE 2-3 VIEWS EXAMINATION: ??SCOLIOSIS [...] TREJO M.D. on Oct 11 2017 ??9:23A [id number] TREJO M.D. FINAL REPORT Attending: ??SHEMAR, ??DAISY Requesting: ??SHEMAR, ??DAISY Requesting Fax: ?? Attending Fax: ?? Attending ID: ??[id number] Requesting ID: ??[id number] Report To 1 ID: ??[id number] ? Report To 1 Name: ??, ?? Report To 1 FAX: ?? NextGen Order #: ?? Procedure Note Miscellaneous, Not In File - 10/11/2017 REJI TREJO M.D. FINAL REPORT ACC# Date Time Exam [id number] Oct 11, 2017 08:57:00 [id number] SCOLI T/L SPINE 2-3 VIEWS EXAMINATION: SCOLIOSIS [...] TREJO M.D. on Oct 11 2017 9:23A [id number] TREJO M.D. FINAL REPORT Attending: DAISY STATON Requesting: DAISY STATON Requesting Fax: Attending Fax: Attending ID: [id number] Requesting ID: [id number] Report To 1 ID: [id number] Report To 1 Name: , Report To 1 FAX: NextGen Order #: us Daisy Staton MD IMG XR PROCEDURES Final Res ult documented in this encounter Visit Diagnoses Not on filedocumented in this encounter Care Teams Traffic Or System Dispatcher Relationship Specialty Start Date End Date Bassem Cho MD [address] [facility] [address] [place] [address] PCP - General 01/17/17 12/19/18 documented as of this encounter
--- OUTSIDE RECORDS SUMMARY | 2024-10-21 04:47 | XMS_ITS | Encounter Summary ---
Author Organization [facility] Healthcare Address [address] [place] [address] Care Team Providers Care Utilization Specialist Name Role Phone Bassem Cho MD Primary Care Provider Encounter Details Date Type Department Care Team (Latest Contact Info) Description 02/20/2017 4:30 PM CDT - 02/28/2017 4:30 PM CDT Hospital Encounter [facility] OP Herbert Recio MD [address] [facility] [address] [place] [address] Other muscle spasm Social History Tobacco Use Types Packs/Day Years Used Date Smoking Tobacco: Never Assessed Comments Unknown Sex and Gender Information Value Date Recorded Sex Assigned at Not on file 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 01/07/2021 9:24 AM CDT Sexual Orientation Not on file documented as of this encounter Plan of Treatment Not on file documented as of this encounter Visit Diagnoses Diagnosis Other muscle spasm documented in this encounter Care Teams Utilization Specialist Relationship Specialty Start Date End Date Bassem Cho MD [address] [facility] [address] [place] [address] PCP - General 01/17/17 12/19/18 documented as of this encounter
--- OUTSIDE RECORDS SUMMARY | 2024-10-21 04:47 | XMS_ITS | Encounter Summary ---
Author Organization [facility] Healthcare Address [address] [place] [address] Care Team Providers Care Lisw Name Role Phone Bassem Cho MD Primary Care Provider Bassem Cho MD Unavailable [phone] Encounter Details Date Type Department Care Team (Late st Contact Info) Description 03/26/2019 2:24 AM CDT - 03/26/2019 3:41 AM CDT Hospital Encounter [address] [address] Unknown, Gio Caballero MD [facility] [address] [place] [address] Discharge Disposition: Discharge to home or self care Social History Tobacco Use Types Packs/Day Years Used Date Smoking Tobacco: Never Smokeless Tobacco: Never Alcohol Use Standard Drinks/Week Comments No 0 (1 standard drink = 0.6 oz pur e alcohol) Comments Unknown Sex and Gender Information Value Date Recorded Sex Assigned at Not on file 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 01/07/2021 9:24 AM [...] 03/26/2019 2:3 6 AM CDT Growth Chart: [facility] (Girls, 2- 20 Years) documented in [...] on filedocumented in this encounter Care Teams Lisw Relationship Specialty Start Date End Date Bassem Cho MD [address] [facility] [address] [place] [address] PCP - General Pediatrics 12/20/18 06/08/19 Bassem Cho MD [address] [facility] [address] [place] [address] 12/20/18 documented as of this encounter
--- OUTSIDE RECORDS SUMMARY | 2024-10-21 04:47 | XMS_ITS | Encounter Summary ---
Author Organization [facility] Healthcare Address [address] [place] [address] Care Team Providers Care Conditioner Tumbler Name Role Phone Bassem Cho MD Primary Care Provider Bassem Cho MD Unavailable [phone] Encounter Details Date Type Department Care Team (Late st Contact Info) Description 02/15/2019 8:14 PM CDT - 02/15/2019 11:54 PM CDT Hospital Encounter [address] [address] Unknown, Gilbert Gordillo MD [address] [address] Discharge Disposition: Discharge to home or self care Social History Tobacco Use Types Packs/Day Years Used Date Smoking Tobacco: Never Smokeless Tobacco: Never Alcohol Use Standard Drinks/Week Comments No 0 (1 standard drink = 0.6 oz pur e alcohol) Comments Unknown Sex and Gender Information Value Date Recorded Sex Assigned at Not on file Legal Sex Female 6:43 AM SAWMILL HAND Gender Identity . 01/07/2021 9:24 AM CDT [...] 02/15/2019 8:2 7 PM CDT Growth Chart: [facility] (Girls, 2- 20 Years) documented in this [...] ?? Age: 13 ?Sex: Female ? MR#: [id number] ?? Loc: ? RADIOLOGY REPORT ?? Order #[id number] ?? Radiology ? Chest 2 Views ? [...] 10:54 PM ?? T: ? Report ID: [id number] ?? Reading Location: ??[id number] ? REPORT ELECTRONICALLY SIGNED IN OTHER VENDOR SYSTEM ?? Resulting Agency Comment E Procedure Note Kentrell Elizabeth MD - 02/15/2019 Patient Name: LEXIE OCONNELL Dr: Gilbert Sneed MD D.O.B: 2005 Exam Date: 02/15/19 0000 Age: 13 Sex: Female MR#: [id number] Loc: RADIOLOGY REPORT Order #[id number] Radiology Chest 2 Views Signed EXAM DESCRIPTION: [...] by Kentrell Elizabeth M.D. T: Report ID: [id number] Reading Location: [place] [address] REPORT ELECTRONICALLY SIGNED IN OTHER VENDOR SYSTEM Gilbert Sneed MD IMG XR PROCEDURES Fin al Result documented in this encounter Visit Diagnoses Not on filedocumented in this encounter Care Teams Conditioner Tumbler Relationship Specialty Start Date End Date Bassem Cho MD [address] [facility] [address] [place] [address] PCP - General Pediatrics 12/20/18 06/08/19 Bassem Cho MD [address] [facility] [address] [facility] [address] 12/20/18 documented as of this encounter
--- OUTSIDE RECORDS SUMMARY | 2024-10-21 04:47 | XMS_ITS | Encounter Summary ---
Author Organization [facility] Address [address] [place] [address] Phone Care Team Providers Care Spinning Frame Tender Name Role Phone Bassem Cho MD Primary Care Provider Bassem Cho MD Unavailable [phone] Reason for Referral * Consultation (Routine) - Closed Specialty Diagnoses / Procedures Referred By Juana richard Referred To Contact Psychology Diagnoses Abnormal movements Marco Myles MD Phone: tel: fax: [facility] Department of Psychology [facility] [address] [place] [address] Phone: tel: fax: Referral ID Status Reason Start Date Expiration Date V isits Requested Visits Authorized [id number] Closed Specialty Services Required 05/11/2019 1 1 Question Answer Please select the performing region: [facility] [[id number]] Please select the performing department: [facility] PSYCH 3N [[id number]] # of visits: 1 Comments Please evaluate appropriateness for CBIT for motor/vocal tics * Diagnostic Imaging (Routine) - Closed Specialty Diagnoses / Procedures Referred By Juana t Referred To Contact Radiology Diagnoses Nonspecific paroxysmal spell Procedures MRI Brain WO Contrast Marco Myles MD Phone: tel: fax: [address] [address] Referral ID Status Reason Start Date Expiration Date Visits Re quested Visits Authorized [id number] Closed 05/11/2019 11/19/2020 1 1 * Neurology (Routine) - Closed Specialty Diagnoses / Procedures Referred By Contac t Referred To Contact Neurology Diagnoses Nonspecific paroxysmal spell Procedures EEG Marco Myles MD Phone: tel: fax: Referral ID Status Reason Start Date Expiration Date Visits Re quested Visits Authorized [id number] Closed 05/11/2019 11/19/2020 1 1 Encounter Details Date Type Department Care Team (Late st Contact Info) Description 05/07/2019 1:30 PM CDT Office Visit [facility] Pediatric Neurology [facility] 2nd [place] [address] [place] [address] Marco Myles MD [address] [place] [address] Migraine with status migrainosus, not [...] on file 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 01/07/2021 9:24 AM CDT [...] 1:2 9 PM CDT Growth Chart: [facility] [...] have placed a referral to Psychology at [facility] for discussion of Comprehensive Behavioral Intervention for Tics (CBIT). Please contact [phone] if you have not heard from them [...] Please call the Pediatric Neurology office at [phone] Myles of worsening migraine [...] all wheeled sports activities. - It is [place] and [place] law that after any loss of consciousness [...] Please call the Pediatric Neurology office at [phone] Myles of any change [...] Name: THOMAS NUR Medical Record Number (MRN): [id number] Date of (): 2005 Encounter Date: 05/07/2019 [facility] Chief Complaint: Thomas Nur is a 13 y.o. female seen today as an initial outpatient visit for abnormal movements, spells, and headaches. Thomas is accompanied to clinic today by her mother. This is Thomas's first evaluation in my clinic, but she was previously seen by Dr. Gissel Mccarthy in the [facility] on January 09, [...] above, Thomas was previously seen in the [facility] by Dr. Gissel [...] syndrome. She had neuropsychiatric evaluation completed at [facility] which reportedly diagnosed motor tic disorder, anxiety disorder, and bipolar disorder. Thomas and her mother also raise concern for a spell which occurred several weeks ago. She was [facility] where flashing lights made her feel [...] hours of sleep in a 24-hour period. Thomas's headaches began in 2nd grade and she [...] There was no ataxia or dysmetria on qgduud-no-pqtc or oevt-wf-ript testing. There wasno dysdiadochokinesia. Gait: Gait was [...] weight loss - Referral to Psychology at [facility] placed for consideration of CBIT therapy. - [...] Time Provider Department Center 06/09/2019 11:00 AM [facility] EEG ROOM 4 [facility] EEG [facility] Main 06/09/2019 1:30 PM [facility] CMRI2 [facility] MRI [facility] IMG 08/19/2019 4:00 PM Marco Myles MD [facility] 2D NL Medications Discontinued During [...] Where should this order be performed? Answer: [facility] [[id number]] Order Specific Question: Does the patient [...] Referral Reason: Specialty Services Required Referral Location: [facility] Requested Specialty: Psychology Number of Visits Requested: 1 ??? EEG Standing Status: Future Standing Expiration Date: 05/11/2020 Scheduling Instructions: Coordinate with brain MRI if able. Order Specific Question: Procedure performed at: Answer: [facility] Order Specific Question: High Density EEG? Answer: No Order Specific Question: OK to perform at the [facility]? Answer: No, perform at [facility] Order Specific Question: Coordinated with appointment/test? Answer: [...] questions, feel free to contact me at [phone]. Sincerely, Marco Myles MD Pediatric Neurology PGY-4 [...] carotid arteries and basilar artery. Procedure Note Mratin Medeiros III, MD PhD - 06/09/2019 EXAMINATION: [...] Routine EEG Report Patient Name: THOMAS NUR [facility] Medical Record Number (MRN): [id number] [facility] Record Number (MRN): [id number] Date of (): 2005 EEG Date: 06/09/2019 Location: [facility] EEG Laboratory Ordering Provider: Marco Myles MD CC: Cortney Pineda History (from dairy technician sheet): Thomas is a 13 ??y.o. 10 ??m.o. girl undergoing EEG for evaluation of seizure(s). She has a history of episodes of whole body jerking lasting a few minutes. ?? Medications: Depakote, clonazepam, Effexor, Orapred?, Worth, symbicort, albuterol EEG technical description: A routine EEG with scalp electrodes was performed using the EzFlop - A First of Its Kind Flip Flop monitoring system to record EEG data digitally. [...] 07/05/2021 added in this encounter Care Teams Spinning Frame Tender Relationship Specialty Start Date End Date Bassem Cho MD [address] [facility] [address] [place] [address] PCP - General Pediatrics 12/20/18 06/08/19 Bassem Cho MD [address] [facility] [address] [place] [address] 12/20/18 documented as of this encounter
--- OUTSIDE RECORDS SUMMARY | 2024-10-21 04:47 | XMS_ITS | Encounter Summary ---
Author Organization [facility] Address [address] [place] [address] Phone Care Team Providers Care Letter Sorting Machine Operator Name Role Phone Bassem Cho MD Unavailable [phone] Cortney Pineda NP Primary Care Provider [phone] Reason for Referral * Consultation (Routine) - Closed Specialty Diagnoses / Procedures Referred By Contact Referred To Contact Pediatric Occupational Therapy Diagnoses Tic disorder Negrita Pride MD PhD [id number] [place] [address] Phone: tel: fax: [facility] (All Locations) Referral ID Status Reason Start Date Expiration Date V isits Requested Visits Authorized [id number] Closed Specialty Services Required 11/29/2020 12/29/2021 24 24 Question Answer PTRFR OT Evaluate and Treat Therapy options discussed with patient's family/caregiver? Yes Location provided for therapy services is: Family or caregiver requested/preferred Please select the performing region: [facility] (All Locations) [167] # of visits: 24 Comments CBIT, functional neurological symptoms ER Reason for Visit * Consultation (Routine) - Closed Specialty Diagnoses / Procedures Referred By Contac t Referred To Contact Pediatric Neurology Diagnoses Tourette's Negrita Pride MD PhD [address] [place] [address] Phone: tel: fax: [facility] Pediatric Neurology [facility] [address]nd [place] [address] [place] [address] Phone: tel: fax: Referral ID Status Reason Start Date Expiration Date V isits Requested Visits Authorized [id number] Closed Specialty Services Required 10/06/2020 11/05/2021 1 1 Encounter Details Date Type Department Care Team (Late st Contact Info) Description 11/29/2020 2:00 PM YARDER Office Visit [facility] Pediatric Neurology [facility] [address] [place] [address] Negrita Pride MD PhD [id number] [place] [address] Functional neurological symptom disorder with abnormal movement [...] on file Legal Sex Female 6:43 AM YARDER Gender Identity . 01/07/2021 9:24 AM CDT Sexual Orientation Not on file documented as of this encounter Last Filed Vital Signs Vital Sign Reading Time Taken Comments Blood Pressure 132/77 11/29/2020 2:20 PM YARDER Pulse 111 11/29/2020 2:20 PM YARDER Temperature 36.9 ??C (98.4 ??F) 11/29/2020 2:20 PM CS T Respiratory Rate 22 11/29/2020 2:20 PM YARDER Oxygen Saturation 98% 11/29/2020 2:20 PM YARDER Inhaled Oxygen Concentration - - Weight 62.4 kg (137 lb 8 oz) 11/29/2020 2:20 PM YARDER Height 165.5 cm (5' 5.16 ) 11/29/2020 2:20 PM CS T Body Mass Index 22.77 11/29/2020 2:20 PM YARDER Body Mass Index Percentile 72.94% 11/29/2020 2:2 0 PM YARDER [facility]: [facility] (Girls, 2- 20 Years) documented in this encounter Progress Notes * Negrita Pride MD PhD - 11/29/2020 2:00 PM CST Images from the original note were not included. [facility] C[facility]alsy [facility] [...] the family. She had 4 hospitalizations over 9790-5077. Mood is relatively controlled on Depakote, Clonazepam, [...] tics, frequent coprolalia and copropraxia, speaking in [place] accent Reflexes: Deep tendon reflexes: 2+ in arms and legs bilaterally. Plantar reflex flexor bilaterally. Coordination: No dysmetria on lwqtex-mx-iphv bilaterally Gait: Narrow base, steady. Normal tandem [...] and similar to several well known social media/Vuclip teenagers that have gathered large numbers of [...] D 25 hydroxy (07/05/2021 12:45 PM CDT) [facility] Vitamin D 25-OH 14(L) 20 - 100 ng/mL [facility] Blood 07/05/2021 12:4 5 PM CDT 07/05/2021 1:06 PM CDT Narrative [facility] - 07/06/2021 12:17 PM CDT AGES: -18 years - Sufficient: 20-100 ng/mL; Borderline: 10-20 ng/mL; Deficient: <10 ng/mL. ??Reference intervals pertain to males and females from through age 18. ??Intervals reflect consensus clinical decision limits derived from various reports including the 2011 [place] [employer] Report on calcium and vitamin D. ??Vitamin D concentrations may vary widely depending on ethnic background, geographic location, and the time of the year the sample was obtained. ??References: ??1. Sander RUGGIERO, Agnes CASTILLO. Prevention of Rickets and Vitamin D Deficiency in Infants, Children, and Adolescents. Pediatrics 2008;122:5080-6133. ??2. Tommy AC, Chelsea CL, Noble AL, Manuel Vincent HB, eds. Dietary Reference Intakes for Calcium and Vitamin D. [place] [employer]; National AcademData Driven Delivery System Press:2011 ??3. Konrad GRACIELA, Harshad J, and Mustapha DJ. Circulating Intact Parathyroid Hormone is Suppressed at 25-hydroxyvitamin D Concentrations greater than 25 nmol/L. J Pediatr Endocrinol Metab 2014;doi:10.1515/oaeq-6048-5190. Last revised on 11/02/2017. Negrita Pride MD PhD LAB BLOOD ORDERAB LES Final Result [facility] Department [place] [address] * (ABNORMAL) Comprehensive metabolic panel (07/05/2021 12:45 PM CDT) Sodium 142 135 - 145 mmol/L [facility] Potassium, pl 4.2 3.3 - 4.9 mmol/L [facility] Chloride 113 100 - 114 mmol/L [facility] CO2 25 20 - 30 mmol/L [facility] Anion gap 4 2 - 15 mmol/L [facility] BUN 12 9 - 18 mg/dL [facility] Creatinine 0.51 0.40 - 1.00 mg/dL [facility] Glucose 96 70 - 199 mg/dL [facility] Comment: Interpretive Data Fasting glucose >/= [...] PhD LAB BLOOD ORDERAB LES Final Result [facility] Department [place] [address] documented in this encounter Visit Diagnoses Diagnosis [...] 11/29 documented in this encounter Care Teams Letter Sorting Machine Operator Relationship Specialty Start Date End Date Cortney Pineda NP [address] [address] PCP - General 06/09/19 Bassem Cho MD [address] [facility] [address] [place] [address] 12/20/18 documented as of this encounter
--- OUTSIDE RECORDS SUMMARY | 2024-10-21 04:47 | XMS_ITS | Encounter Summary ---
Author Organization [facility] Healthcare Address [address] [place] [address] Care Team Providers Care Deputy Sheriff Generalist/Bailiff Name Role Phone Bassem Cho MD Primary Care Provider Encounter Details Date Type Department Care Team (Latest Contact Info) Description 10/24/2017 9:05 AM POLICE LIEUTENANT PRECINCT - 10/24/2017 11:59 PM POLICE LIEUTENANT PRECINCT Hospital Encounter [facility] [phone] [address] [address] Discharge Disposition: Discharge to home or self care Social History Tobacco Use Types Packs/Day Years Used Date Smoking Tobacco: Never Assessed Comments Unknown Sex and Gender Information Value Date Recorded Sex Assigned at Not on file Legal Sex Female 6:43 AM POLICE LIEUTENANT PRECINCT Gender Identity . 01/07/2021 9:24 AM CDT Sexual Orientation Not on file documented as of this encounter Discharge Disposition Disposition Code Departure Means Destination Discharge to home or self care documented in this encounter Plan of Treatment Not on file documented as of this encounter Procedures Procedure Name Priority Date/Time Associated Diagnosis Comments MRI LUMBAR SPINE WO CONTRAST Routine 10/24/2017 3:58 PM POLICE LIEUTENANT PRECINCT documented in this encounter Results * MRI Lumbar Spine WO Contrast (10/24/2017 3:58 PM POLICE LIEUTENANT PRECINCT) Anatomical Region Laterality Modality Spine N/A Magnetic Resonan ce 10/24/2017 3:58 PM POLICE LIEUTENANT PRECINCT Narrative 10/24/2017 6:50 PM POLICE LIEUTENANT PRECINCT Melly OSPINA M.D. FINAL REPORT The radiology attending physician has personally reviewed this study, and has reviewed and/or edited this written report and agrees with it. ACC# ??Date Time ??Exam [id number] Oct 24, 2017 09:58:00 [id number] MRI L-SPINE WO EXAMINATION: ??Magnetic resonance imaging [...] MEDEIROS M.D. on Oct 24 2017 12:47P eMlly OSPINA M.D. FINAL REPORT The radiology attending physician has personally reviewed this study, and has reviewed and/or edited this written report and agrees with it. Attending: ??SHEMAR, ??PETR Requesting: ??Shemar, ??Petr Requesting Fax: ?? Attending Fax: ?? Attending ID: ??[id number] Requesting ID: ??[id number] Report To 1 ID: ??[id number] ? Report To 1 Name: ??, ?? Report To 1 FAX: ?? NextGen Order #: ?? Procedure Note Miscellaneous, Not In File - 10/24/2017 Melly OSPINA M.D. FINAL REPORT The radiology attending physician has personally reviewed this study, and has reviewed and/or edited this written report and agrees with it. ACC# Date Time Exam [id number] Oct 24, 2017 09:58:00 [id number] MRI L-SPINE WO EXAMINATION: Magnetic resonance imaging [...] Staton Requesting Fax: Attending Fax: Attending ID: [id number] Requesting ID: [id number] Report To 1 ID: [id number] Report To 1 Name: , Report To 1 FAX: NextGen Order #: us Petr Staton MD IMG MRI PROCEDURES Final Re sult documented in this encounter Visit Diagnoses Not on filedocumented in this encounter Care Teams Deputy Sheriff Generalist/Bailiff Relationship Specialty Start Date End Date Bassem Cho MD [address] [place] [address] PCP - General 01/17/17 12/19/18 documented as of this encounter
--- OUTSIDE RECORDS SUMMARY | 2024-10-21 04:47 | XMS_ITS | Encounter Summary ---
Author Organization [facility] Healthcare Address [address] [place] [address] Care Team Providers Care Account Relationship Manager Name Role Phone Bassem Cho MD Primary Care Provider Encounter Details Date Type Department Care Team (Late st Contact Info) Description 06/19/2017 7:59 PM CDT - 06/19/2017 11:[address] [facility] [place] [address] Cris Martinez MD 1 [facility] [address] [place] [address] Discharge Disposition: Discharge to home or self care Social History Tobacco Use Types Packs/Day Years Used Date Smoking Tobacco: Never Assessed Comments Unknown Sex and Gender Information Value Date Recorded Sex Assigned at Not on file Legal Sex Female 6:43 AM CHAINER Gender Identity . 01/07/2021 9:24 AM CDT [...] WBC 7.74 3.80 - 9.90 K/cumm [facility] RBC 4.53 3.90 - 5.20 M/cumm [facility] Hgb 12.9 11.9 - 15.5 g/dL [facility] Hct 36.8 35.6 - 45.5 % [facility] MCV 81.2(L) 81.3 - 96.4 fL [facility] MCH 28.5 27.1 - 33.3 pg [facility] MCHC 35.1 32.3 - 35.7 g/dL [facility] RDW CV 13.1 11.1 - 14.9 % [facility] RDW SD 38.5 35.7 - 48.1 fL [facility] Plt 333 150 - 400 K/cumm [facility] MPV 8.8(L) 9.1 - 12.3 fL [facility] NRBC abs 0.00 0.00 - 0.01 K/cumm [facility] NRBC 0.0 % [facility] Blood specimen (specimen) 06/19/2017 9:37 PM CDT 06/19/2017 9:41 PM CDT us Cris Medrano MD LAB BLOOD ORDERABLES Fi nal Result [facility] Department [place] [address] * Differential, auto (06/19/2017 9:37 PM CDT) Neutrophil abs 4.52 1.50 - 9.40 K/cumm [facility] Lymphocyte abs 2.67 1.00 - 7.20 K/cumm [facility] Monocyte abs 0.32 0.10 - 1.70 K/cumm [facility] Eosinophil abs 0.19 0.10 - 1.60 K/cumm [facility] Basophil abs 0.03 0.00 - 0.30 [...] MD LAB BLOOD ORDERABLES Fi nal Result [facility] Department [place] [address] * DISCHARGE LABORATORY CUMULATIVE REPORT (06/19/2017 12:00 AM CDT) Narrative 06/19/2017 12:00 AM CDT Ordered by an unspecified provider. Historical Provider LAB BLOOD ORDERABLES Maite l Result documented in this encounter Visit Diagnoses Not on filedocumented in this encounter Care Teams Account Relationship Manager Relationship Specialty Start Date End Date Bassem Cho MD [address] [place] [address] PCP - General 01/17/17 12/19/18 documented as of this encounter
--- OUTSIDE RECORDS SUMMARY | 2024-10-21 04:47 | XMS_ITS | Encounter Summary ---
Author Organization [facility] Healthcare Address [address] [place] [address] Care Team Providers Care Manager Of Selection And Assessment Name Role Phone Bassem Cho MD Primary Care Provider Encounter Details Date Type Department Care Team (Late st Contact Info) Description 07/07/2018 11:50 PM CDT - 07/08/2018 1:47 AM CDT Hospital Encounter [facility] Juan Muñoz MD 1 [facility] [address] [place] [address] Mild intermittent asthma with acute exacerbation Social History Tobacco Use Types Packs/Day Years Used Date Smoking Tobacco: Never Assessed Comments Unknown Sex and Gender Information Value Date Recorded Sex Assigned at Not on file Legal Sex Female 6:43 AM COMMUNITY RESOURCE CONSULTANT Gender Identity . 01/07/2021 9:24 AM CDT [...] 94.95% 07/07 11:53 PM CDT Growth Chart: [facility] (Girls, 2- 20 Years) documented in this [...] exacerbation documented in this encounter Care Teams Manager Of Selection And Assessment Relationship Specialty Start Date End Date Bassem Cho MD [address] [place] [address] PCP - General 01/17/17 12/19/18 documented as of this encounter
--- OUTSIDE RECORDS SUMMARY | 2024-10-21 04:47 | XMS_ITS | Encounter Summary ---
Author Organization [facility] Address [address] [place] [address] Care Team Providers Care Precision Farming Coordinator Name Role Phone Bassem Cho MD Unavailable [phone] Cortney Pineda NP Primary Care Provider [phone] Reason for Visit * Reason Comments Tics Pain * Consultation (Routine) - Closed Specialty Diagnoses / Procedures Referred By Contac t Referred To Contact Psychology Diagnoses Abnormal movements Marco Myles MD Phone: tel: fax: [facility] Department of Psychology [address] [facility] [address] [place] [address] Phone: tel: fax: Referral ID Status Reason Start Date Expiration Date V isits Requested Visits Authorized [id number] Closed Specialty Services Required 05/11/2019 1 1 Encounter Details Date Type Department Care Team (Late st Contact Info) Description 08/13/2019 11:00 AM FARM REPORTER Office Visit [facility] Department of Psychology [address] [place] [address] Kandy Dash, PhD 1 [facility] [address] [facility] [address] [place] [address] Abnormal movements Social History Tobacco Use Types Packs/Day Years Used Date Smoking Tobacco: Never Smokeless Tobacco: Never Alcohol Use Standard Drinks/Week Comments No 0 (1 standard drink = 0.6 oz pur e alcohol) Comments Unknown Sex and Gender Information Value Date Recorded Sex Assigned at Not on file Legal Sex Female 6:43 AM FARM REPORTER Gender Identity . 01/07/2021 9:24 AM [...] has notably improved. She missed most of [id number] and 8th grades related to medical and psychiatric health problems, was on homebound instruction, was on a half day schedule for a long time. Lexie described a high level of motivation to attend school and earn good grades, related to career goals. Coping: Lexie enjoys reading, drawing, writing stories. She and Mom feel psychiatric medications, behavioral health counseling, and companion caregiver have been helpful. Emotional/Behavioral Functioning Lexie described [...] had psychological assessment and neuropsychological assessment at [facility] 03/2019.Family did not have copy of the [...] Stop time: 1209 Total time: 68 minutes REPORTER documented in this encounter Plan of Treatment Not on file documented as of this encounter Visit Diagnoses Diagnosis Abnormal movements documented in this encounter Orders Outpatient Referral Count Last Ordered Date Fir st Ordered Date AMB REFERRAL TO PEDIATRIC PSYCHOLOGY 1 08/01 documented in this encounter Care Teams Precision Farming Coordinator Relationship Specialty Start Date End Date Cortney Pineda NP [address] [place] [address] PCP - General 06/09/19 Bassem Cho MD [address] [facility] [address] [place] [address] 12/20/18 documented as of this encounter
--- OUTSIDE RECORDS SUMMARY | 2024-10-21 04:47 | XMS_ITS | Encounter Summary ---
Author Organization [facility] Healthcare Address [address] [place] [address] Care Team Providers Care Dye House Wheel Operator Name Role Phone Bassem Cho MD Primary Care Provider Encounter Details Date Type Department Care Team (Latest Contact Info) Description 10/08/2018 8:52 PM LITIGATION ASSOCIATE - 10/08/2018 10:11 PM LITIGATION ASSOCIATE Hospital Encounter [facility] Gilbert Mendenhall MD [address] [facility] [address] [place] [address] Sprain of left foot; Sprain of ligament of left ankle; Other long-term (current) drug therapy; Overexertion from prolonged static or awkward postures, initial encounter; Activity, other involving climbing, rappelling and jumping off Social History Tobacco Use Types Packs/Day Years Used Date Smoking Tobacco: Never Assessed Comments Unknown Sex and Gender Information Value Date Recorded Sex Assigned at Not on file Legal Sex Female 6:43 AM LITIGATION ASSOCIATE Gender Identity . 01/07/2021 9:24 AM CDT Sexual Orientation Not on file documented as of this encounter Last Filed Vital Signs Vital Sign Reading Time Taken Comments Blood Pressure 113/70 10/08/2018 9:00 PM LITIGATION ASSOCIATE Pulse 76 10/08/2018 9:00 PM LITIGATION ASSOCIATE Temperature 36.3 ??C (97.4 ??F) 10/08/2018 9:00 PM CS T Respiratory Rate - - Oxygen Saturation 100% 10/08/2018 9:00 PM LITIGATION ASSOCIATE Inhaled Oxygen Concentration - - Weight 46.3 kg (102 lb) 10/08/2018 9:00 PM LITIGATION ASSOCIATE Height - - Body Mass Index - [...] OR MORE VIEWS Routine 10/08/2018 12:00 AM LITIGATION ASSOCIATE documented in this encounter Results * XR Foot Left 3 or More Views (10/08/2018 12:00 AM LITIGATION ASSOCIATE) Anatomical Region Laterality Modality Lower Extremities, Foot Left [facility] 10/08/2018 Impressions 10/08/2018 9:42 PM LITIGATION ASSOCIATE ??No acute osseous abnormality is evident. THIS IS AN ELECTRONICALLY VERIFIED FINAL REPORT 10/08/2018 9:39 PM - Electronically signed by Issac Hayes M.D., MD D: ??10/08/2018 9:39 PM T: Report ID: [id number] Reading Location: ??[id number] [EOD] Narrative 10/08/2018 9:42 PM LITIGATION ASSOCIATE EXAM DESCRIPTION: ??Foot LT 3 View Min [...] Issac Hayes M.D., MD T: Report ID: [id number] Reading Location: [id number] [EOD] Gilbert Sneed MD IMG XR PROCEDURES Fin al Result documented in this encounter Visit Diagnoses Diagnosis Sprain of left foot Sprain of ligament of left ankle Other buttermaker helper (current) drug therapy Overexertion from prolonged static or awkward postures, initial encounter Activity, other involving climbing, rappelling and jumping off documented in this encounter Care Teams Dye House Wheel Operator Relationship Specialty Start Date End Date Bassem Cho MD [address] [facility] [address] [place] [address] PCP - General 01/17/17 12/19/18 documented as of this encounter
--- OUTSIDE RECORDS SUMMARY | 2024-10-21 04:47 | XMS_ITS | Encounter Summary ---
Author Organization [facility] Healthcare Address [address] [place] [address] Care Team Providers Care Curb Machine Operator Name Role Phone Bassem Cho MD Primary Care Provider Encounter Details Date Type Department Care Team (Latest Contact Info) Description 07/02/2017 4:05 PM CDT - 07/02/2017 11:59 PM CDT Hospital Encounter [facility] [phone] Destinee Devries MD [phone] [place] [address] Discharge Disposition: Discharge to home or self care Social History Tobacco Use Types Packs/Day Years Used Date Smoking Tobacco: Never Assessed Comments Unknown Sex and Gender Information Value Date Recorded Sex Assigned at Not on file Legal Sex Female 6:43 AM COMPLAINT ANALYST Gender Identity . 01/07/2021 9:24 AM [...] Protein C 150 60 - 150 % [facility] Blood specimen (specimen) 07/02/2017 4:29 PM CDT 07/02/2017 5:31 PM CDT Destinee Devries MD LAB BLOOD ORDERABLES Final R esult Performing Organization Address City/[facility] Co de Phone Number [facility] [place] [address] * Ferritin (07/02/2017 4:29 PM CDT) Ferritin 20 7 - 140 ng/mL [facility] Blood specimen (specimen) 07/02/2017 4:29 PM CDT 07/02/2017 4:59 PM CDT Destinee Devries MD LAB BLOOD ORDERABLES Final R esult Performing Organization Address [facility] [place] [address] * DISCHARGE LABORATORY CUMULATIVE REPORT (07/02/2017 12:00 AM CDT) Narrative 07/02/2017 12:00 AM CDT Ordered by an unspecified provider. Historical Provider LAB BLOOD ORDERABLES Maite l Result documented in this encounter Visit Diagnoses Not on filedocumented in this encounter Care Teams Curb Machine Operator Relationship Specialty Start Date End Date Bassem Cho MD [address] [facility] [address] [place] [address] PCP - General 01/17/17 12/19/18 documented as of this encounter
--- OUTSIDE RECORDS SUMMARY | 2024-10-21 04:47 | XMS_ITS | Encounter Summary ---
Author Organization [facility] Healthcare Address [address] [place] [address] Care Team Providers Care President Mortgage Company Name Role Phone Bassem Cho MD Unavailable [phone] Cortney Pineda NP Primary Care Provider [phone] Reason for Referral * Diagnostic Imaging (Routine) - Closed Specialty Diagnoses / Procedures Referred By Contac t Referred To Contact Radiology Diagnoses Nonspecific paroxysmal spell Procedures MRI Brain WO Contrast Marco Myles MD Phone: tel: fax: [address] [phone] Referral ID Status Reason Start Date Expiration Date Visits Re quested Visits Authorized [id number] Closed 05/11/2019 11/19/2020 1 1 Reason for Visit * Diagnostic Imaging (Routine) - Closed Specialty Diagnoses / Procedures Referred By Contac hilary Referred To Contact Radiology Diagnoses Nonspecific paroxysmal spell Procedures MRI Brain WO Contrast Marco Myles MD Phone: tel: fax: [address] [phone] Referral ID Status Reason Start Date Expiration Date Visits Re quested Visits Authorized [id number] Closed 05/11/2019 11/19/2020 1 1 Encounter Details Date Type Department Care Team (Latest Contact Info) Description 06/09/2019 1:03 PM CDT - 06/09/2019 11:59 PM CDT Hospital Encounter [facility] [place] [address] Marco Myles MD [address] [place] [address] Nonspecific paroxysmal spell Discharge Disposition: Discharge to home or self care Social History Tobacco Use Types Packs/Day Years Used Date Smoking Tobacco: Never Smokeless Tobacco: Never Alcohol Use Standard Drinks/Week Comments No 0 (1 standard drink = 0.6 oz pur e alcohol) Comments Unknown Sex and Gender Information Value Date Recorded Sex Assigned at Not on file Legal Sex Female 6:43 AM VOCATIONAL GUIDANCE COUNSELOR Gender Identity . 01/07/2021 9:24 AM CDT [...] spell documented in this encounter Care Teams President Mortgage Company Relationship Specialty Start Date End Date Cortney Pineda NP [address] [place] [address] PCP - General 06/09/19 Bassem Cho MD [address] [facility] [address] [place] [address] 12/20/18 documented as of this encounter
--- OUTSIDE RECORDS SUMMARY | 2024-10-21 04:47 | XMS_ITS | Encounter Summary ---
Author Organization [facility] Healthcare Address [address] [place] [address] Care Team Providers Care Press Set Up Person Name Role Phone Bassem Cho MD Primary Care Provider Bassem Cho MD Unavailable [phone] Encounter Details Date Type Department Care Team (Late st Contact Info) Description 02/16/2019 10:32 PM CDT - 02/17/2019 12:38 AM CDT Hospital Encounter [address] [address] Unknown, Jennifer Alexis MD [address] [place] [address] [address] [place] [address] Discharge Disposition: Discharge to home or self care Social History Tobacco Use Types Packs/Day Years Used Date Smoking Tobacco: Never Smokeless Tobacco: Never Alcohol Use Standard Drinks/Week Comments No 0 (1 standard drink = 0.6 oz pur e alcohol) Comments Unknown Sex and Gender Information Value Date Recorded Sex Assigned at Not on file Legal Sex Female 6:43 AM POLICE DISTRICT SWITCHBOARD OPERATOR Gender Identity . 01/07/2021 9:24 AM [...] 02/16/2019 11: 07 PM CDT Growth Chart: [facility] (Girls, 2- 20 Years) documented in [...] RADIOLOGY Atrial Rate 79 BPM ER RADIOLOGY [place]-Interval (MSEC) 146 ms ER RADIOLOGY QRS-Interval (MSEC) 88 ms ER RADIOLOGY QT-Interval (MSEC) 360 ms ER RADIOLOGY QTc 412 ms ER RADIOLOGY P [place] 54 degrees ER RADIOLOGY R [place] 80 degrees ER RADIOLOGY T [place] 43 degrees ER RADIOLOGY Diagnosis * Pediatric [...] on filedocumented in this encounter Care Teams Press Set Up Person Relationship Specialty Start Date End Date Bassem Cho MD [address] [facility] [address] [place] [address] PCP - General Pediatrics 12/20/18 06/08/19 Bassem Cho MD [address] [facility] [address] [place] [address] 12/20/18 documented as of this encounter
--- OUTSIDE RECORDS SUMMARY | 2024-10-21 04:47 | XMS_ITS | Encounter Summary ---
Author Organization [facility] Address [address] [place] [address] Phone Care Team Providers Care Scaffold Setter Name Role Phone Bassem Cho MD Unavailable [phone] Cortney Pineda NP Primary Care Provider [phone] Reason for Visit * Reason Comments OT Treatment * Consultation (Routine) - Closed Specialty Diagnoses / Procedures Referred By Contact Referred To Contact Pediatric Occupational Therapy Diagnoses Tic disorder Negrita Pride MD PhD [address] [place] [address] Phone: tel: fax: [facility] (All Locations) Referral ID Status Reason Start Date Expiration Date V isits Requested Visits Authorized [id number] Closed Specialty Services Required 11/29/2020 12/29/2021 24 24 Encounter Details Date Type Department Care Team (Late st Contact Info) Description 01/06/2021 3:00 PM CDT Therapy [facility] Occupational Therapy [address] [place] [phone] Vicky Ramachandran, OT [address] [place] [address] Tic disorder (Primary Dx) Social History Tobacco Use Types Packs/Day Years Used Date Smoking Tobacco: Never Smokeless Tobacco: Never Alcohol Use Standard Drinks/Week Comments No 0 (1 standard drink = 0.6 oz pur e alcohol) Comments No Sex and Gender Information Value Date Recorded Sex Assigned at Not on file Legal Sex Female 6:43 AM DRESS FITTER Gender Identity . 01/07/2021 9:24 AM CDT [...] edy 14 I'm finch, no gender here Israeli Occupational Performance Measure (COPM) The Israeli Occupational Performance Measure (COPM) is a semi-structured [...] 3/4 weeks within 2 months. New (12/23/2020) Longterm Goals: 1. Client and caregiver will create [...] unspecified documented in this encounter Care Teams Scaffold Setter Relationship Specialty Start Date End Date Cortney Pineda NP [address] [place] [address] PCP - General 06/09/19 Bassem Cho MD [address] [facility] [place] [address] 12/20/18 documented as of this encounter
--- OUTSIDE RECORDS SUMMARY | 2024-10-21 04:47 | XMS_ITS | Encounter Summary ---
Author Organization [facility] Address [address] [place] [address] Phone Care Team Providers Care Head Filter Press Tender Name Role Phone Bassem Cho MD Unavailable [phone] Cortney Pineda NP Primary Care Provider [phone] Reason for Visit * Reason Comments OT Initial Eval * Consultation (Routine) - Closed Specialty Diagnoses / Procedures Referred By Contact Referred To Contact Pediatric Occupational Therapy Diagnoses Tic disorder Negrita Pride MD PhD [id number] [place] [address] Phone: tel: fax: [facility] (All Locations) Referral ID Status Reason Start Date Expiration Date V isits Requested Visits Authorized [id number] Closed Specialty Services Required 11/29/2020 12/29/2021 24 24 Encounter Details Date Type Department Care Team (Late st Contact Info) Description 12/23/2020 12:00 PM CDT Therapy [facility] Occupational Therapy [address] [place] [id number] Vicky Ramachandran, OT [address] [place] [address] Tic disorder (Primary Dx) Social History Tobacco Use Types Packs/Day Years Used Date Smoking Tobacco: Never Smokeless Tobacco: Never Alcohol Use Standard Drinks/Week Comments No 0 (1 standard drink = 0.6 oz pur e alcohol) Comments No Sex and Gender Information Value Date Recorded Sex Assigned at Not on file Legal Sex Female 6:43 AM BIOMETRIC SCREENER Gender Identity . 01/07/2021 9:24 AM CDT Sexual Orientation Not on file documented as of this encounter Progress Notes * Chelsea Hamilton BS - 12/23/2020 12:00 PM CDT Occupational Therapy Evaluation Lexie Gross Anish, 2005, 15 y.o., female was evaluated by [facility] OT Services in Clinic on 12/23/2020. Treatment [...] medical history: Farzaneh was first seen by [facility] neurology in December of 2016 due to [...] on Pjs, reading, listening to musics, watch [employer] on phone and video games. Naps during day: No . Work Routine: Mother runs her own soap business but hasn't been able to work since [facility]. Father works as a national aircraft accessories mechanic for [employer] (part time) and [employer] shop. Client is a student. There is concerns: Tics, managing finances, driving with client's ability to work. School Routine: Client is in 10th grade at [employer]. high school. Student has IEP. Utilization [...] Flexion 4 4 Extension 5 5 Hand Brickmason Contractor 4 4 Lower Extremity AROM: WFL Lower [...] it hard to carry items. Modified Independent. Division Human Resources Manager .Moderate assistance. Ct stated she needs help [...] a tic that makes her write rocks [place] Occupational Performance Measure (COPM) The [place] Occupational Performance Measure (COPM) is a semi-structured [...] 3/4 weeks within 2 months. New (12/23/2020) Tie Knitter Helper Goals: 1. Client and caregiver will create [...] 12/23/2020 documented in this encounter Care Teams Head Filter Press Tender Relationship Specialty Start Date End Date Cortney Pineda NP [address] [place] [address] PCP - General 06/09/19 Bassem Cho MD [address] [facility] [address] [place] [address] 12/20/18 documented as of this encounter
--- OUTSIDE RECORDS SUMMARY | 2024-10-21 04:47 | XMS_ITS | Encounter Summary ---
Author Organization [facility] Address [address] [place] [address] Phone Care Team Providers Care Gas Desulfurizer Name Role Phone Bassem Cho MD Unavailable Cortney Pineda NP Primary Care Provider Reason for Visit * Reason Comments OT Treatment * Consultation (Routine) - Closed Specialty Diagnoses / Procedures Referred By Contact Referred To Contact Pediatric Occupational Therapy Diagnoses Tic disorder Negrita Pride MD PhD [address] [place] [address] Phone: tel: fax: [facility] (All Locations) Referral ID Status Reason Start Date Expiration Date V isits Requested Visits Authorized [id number] Closed Specialty Services Required 11/29/2020 12/29/2021 24 24 Encounter Details Date Type Department Care Team (Late st Contact Info) Description 12/31/2020 8:00 AM CDT Therapy [facility] Occupational Therapy [address] [place] [id number] Vicky Ramachandran, OT [address] [place] [address] Tic disorder (Primary Dx) Social History Tobacco Use Types Packs/Day Years Used Date Smoking Tobacco: Never Smokeless Tobacco: Never Alcohol Use Standard Drinks/Week Comments No 0 (1 standard drink = 0.6 oz pur e alcohol) Comments No Sex and Gender Information Value Date Recorded Sex Assigned at Not on file Legal Sex Female 6:43 AM 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 01/07/2021 9:24 AM [...] when setting them on table or loading avionics electronics technician. Grocery/Clothing Shopping Tics make it hard to go to the store and Tics bring negative attention Restaurant Tics make it hard to go to restaurants and Tics bring negative attention Auto Fleet Maintenance Manager: <$20 [employer] and Credit Card Management. 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 Community Activities Community groups: [employer]: disruptive behavior with [place], as they frequently mimic each others tics Outdoor Activities: Horse back riding. Ct would like to participate in again as this helped decrease tics when riding in the past. [place] Occupational Performance Measure (COPM) The [place] Occupational Performance Measure (COPM) is a semi-structured [...] 3/4 weeks within 2 months. New (12/31/2020) Detention Goals: 1. Client and caregiver will [...] unspecified documented in this encounter Care Teams Gas Desulfurizer Relationship Specialty Start Date End Date Cortney Pineda NP [address] [place] [address] PCP - General 06/09/19 Bassem Cho MD [address] [facility] [address] [address] [place] [address] 12/20/18 documented as of this encounter
--- OUTSIDE RECORDS SUMMARY | 2024-10-21 04:47 | XMS_ITS | Encounter Summary ---
Author Organization [facility] Address [address] [place] [address] Care Team Providers Care It Trainee Name Role Phone Bassem Cho MD Primary Care Provider Reason for Visit * Reason Comments Asthma Encounter Details Date Type Department Care Team (Late st Contact Info) Description 07/16/2018 6:37 PM CDT - 07/16/2018 10:28 PM CDT Emergency [facility] [address] Feng Chavez MD [facility] [address] [facility] [address] [place], [place] [id number] Moderate persistent asthma with exacerbation (Primary Dx) Discharge Disposition: Discharge to home or self care Social History Tobacco Use Types Packs/Day Years Used Date Smoking Tobacco: Never Assessed Comments Unknown Sex and Gender Information Value Date Recorded Sex Assigned at Not on file Legal Sex Female 6:43 AM FAMILY PROTECTION SPECIALIST Gender Identity . 01/07/2021 9:24 AM [...] through Care Everywhere. * Asthma, Acute (Child) (Sinhala) documented in this encounter Medications at Time [...] in this encounter ED Notes * Aravind Brene MD - 07/16/2018 7:39 PM CDT HPI [...] several weeks. Is due to see a culinary assistant in [place], appointment in about 1-2 weeks. Of note [...] silhouette is normal. ?? Procedure Note Vicky uZrita MD - 07/17/2018 EXAMINATION: Chest 2 views [...] dose documented in this encounter Care Teams It Trainee Relationship Specialty Start Date End Date Bassem Cho MD [address] [facility] [address] [place] [address] PCP - General 01/17/17 12/19/18 documented as of this encounter
--- OUTSIDE RECORDS SUMMARY | 2024-10-21 04:47 | XMS_ITS | Encounter Summary ---
Author Organization [facility] Care Team Providers Care Cotton Weigher Operator Name Role Phone Bassem Cho MD Unavailable [phone] Cortney Pineda OPERATIONS EXAMINER Primary Care Provider [phone] Encounter Details Date Type Department Care Team [...] on file Legal Sex Female 6:43 AM GATE MANAGER Gender Identity . 01/07/2021 9:24 AM CDT Sexual Orientation Not on file documented as of this encounter Plan of Treatment Not on file documented as of this encounter Visit Diagnoses Not on filedocumented in this encounter Care Teams Cotton Weigher Operator Relationship Specialty Start Date End Date Cortney Pineda NP [address] [facility] [place] [address] PCP - General 06/09/19 Bassem Cho MD [address] [facility] [address] [place] [address] 12/20/18 documented as of this encounter
--- OUTSIDE RECORDS SUMMARY | 2024-10-21 04:47 | XMS_ITS | Encounter Summary ---
Author Organization [facility] Address [address] [place] [address] Phone Care Team Providers Care Business Development Officer Name Role Phone Bassem Cho MD Unavailable [phone] Cortney Pineda NP Primary Care Provider [phone] Reason for Visit * Neurology (Routine) - Closed Specialty Diagnoses / Procedures Referred By Juana richard Referred To Contact Pediatrics / Pediatric Neurology Diagnoses f/u Procedures RETURN Bassem Cho MD Phone: tel: fax: Marco Myles MD [address] [place] [address] Phone: tel: fax: Referral ID Status Reason Start Date Expiration Date Visits Re quested Visits Authorized [id number] Closed 08/19/2019 02/27/2021 1 1 Encounter Details Date Type Department Care Team (Late st Contact Info) Description 08/19/2019 4:00 PM ART FRAMING MANAGER Office Visit [facility] Pediatric Neurology [facility] 2nd [place] [address] [place] [id number] Marco Myles MD [address] [place], [place] [id number] Difficulty sleeping (Primary Dx); Migraine with status [...] file Legal Sex Female 6:43 AM ART FRAMING MANAGER Gender Identity . 01/07/2021 9:24 AM CDT Sexual Orientation Not on file documented as of this encounter Last Filed Vital Signs Vital Sign Reading Time Taken Comments Blood Pressure 116/68 08/19/2019 4:03 PM ART FRAMING MANAGER Pulse 90 08/19/2019 4:03 PM ART FRAMING MANAGER Temperature - - Respiratory Rate 20 08/19/2019 4:03 PM ART FRAMING MANAGER Oxygen Saturation - - Inhaled Oxygen Concentration - - Weight 70.5 kg (155 lb 8 oz) 08/19/2019 4:03 PM ART FRAMING MANAGER Height 162.8 cm (5' 4.09 ) 08/19/2019 4:03 PM CS T Body Mass Index 26.61 08/19/2019 4:03 PM ART FRAMING MANAGER Body Mass Index Percentile 92.69% 08/19/2019 4:0 3 PM ART FRAMING MANAGER Growth Chart: [facility] (Girls, 2- 20 Years) documented in this encounter Patient Instructions * Patient Instructions* Marco Myles MD - 08/19/2019 4:00 PM ART FRAMING MANAGER Increase cyproheptadine to 4 mg twice daily. [...] keeping a headache diary or using the [employer] rodo to improve understanding of personal headache patterns. - Please call the Pediatric Neurology office at [phone] Myles of worsening migraine or missed school due to migraine symptoms. FRAMING MANAGER FRAMING MANAGER FRAMING MANAGER documented in this encounter Progress Notes * Marco Myles MD - 08/19/2019 4:00 PM CST Patient Name: LEXIE NUR Medical Record Number (MRN): [id number] Date of (): 2005 Encounter Date: 08/19/2019 [facility] Pediatric Neurology Continuity [facility] Chief Complaint: Lexie [...] Lexie had previously been seen in the [facility] Pediatric Neurology Continuity Clinic by Dr. Gissel [...] or diplopia. Facial sensation was intact in V1-[id number] bilaterally. Facial strength was full and symmetric. [...] There was no ataxia or dysmetria on [id number] or pycq-[id number] testing. Gait: Gait was narrow based with [...] - Encouraged continued participation with C[facility] with [facility]. Also encouraged continued regular follow up [...] Referral Reason: Specialty Services Required Referral Location: [facility] (All Locations) Requested Specialty: Neurology Number of Visits Requested: 1 Thank you for allowing us to participate in the care of your patient. If you have any questions, feel free to contact me at [phone]. Sincerely, Marco Myles MD Pediatric Neurology PGY-4 Cosigned by Negrita Pride MD PhD at 08/25/2019 3:36 PM ART FRAMING MANAGER FRAMING MANAGER FRAMING MANAGER Associated attestation - Negrita Pride MD PhD - 08/25/2019 3:36 PM ART FRAMING MANAGER I have seen and examined the patient. [...] unspecified documented in this encounter Care Teams Business Development Officer Relationship Specialty Start Date End Date Cortney Pineda NP [address] [place] [address] PCP - General 06/09/19 Bassem Cho MD [address] [facility] [address] [address] 12/20/18 documented as of this encounter
--- OUTSIDE RECORDS SUMMARY | 2024-10-21 04:47 | XMS_ITS | Encounter Summary ---
Author Organization [facility] Address [address] [place] [address] Care Team Providers Care Cotton Puller Name Role Phone Bassem Cho MD Primary Care Provider Reason for Visit * Reason Comments Heavy Menstruation Encounter Details Date Type Department Care Team (Late st Contact Info) Description 11/15/2018 11:56 AM GRAIN PROCESSOR - 11/15/2018 4:00 PM GRAIN PROCESSOR Emergency [facility] [place] [address] Autumn Land MD [address] [place] [address] [address] [place] [address] Menorrhagia with irregular cycle (Primary Dx) Discharge [...] on file Legal Sex Female 6:43 AM GRAIN PROCESSOR Gender Identity . 01/07/2021 9:24 AM CDT Sexual Orientation Not on file documented as of this encounter Last Filed Vital Signs Vital Sign Reading Time Taken Comments Blood Pressure 106/66 11/15/2018 3:58 PM GRAIN PROCESSOR Pulse 91 11/15/2018 3:58 PM GRAIN PROCESSOR Temperature 36.6 ??C (97.9 ??F) 11/15/2018 11:[address] Respiratory Rate 20 11/15/2018 3:58 PM GRAIN PROCESSOR Oxygen Saturation 100% 11/15/2018 3:58 PM GRAIN PROCESSOR Inhaled Oxygen Concentration - - Weight 67.6 kg (149 lb 0.5 oz) 11/15/2018 11:18 AM GRAIN PROCESSOR Height - - Body Mass Index - - documented in this encounter Discharge Instructions * Discharge Instructions* Autumn Land MD - 11/15/2018 3:34 PM GRAIN PROCESSOR Take 1 pill three times daily (morning, noon, evening) for 3 days, then 1 pill twice daily (morningand evening) for 2 days, then once daily until bleeding stops. Take zofran every 8 hours as needed for nausea. Schedule an appointment with her regular GEAR CUTTING MACHINE OPERATOR within 1 week or sooner to ensure symptoms are improving. Continue ibuprofen every 6 hours as needed for cramping. Bring her back to the emergency room if she develops worsening symptoms, dizziness/fainting, or if any new concerns arise. N PROCESSOR * Attachments The following attachments cannot be sent through Care Everywhere. * Heavy Menstrual Bleeding (Romanian) documented in this encounter Medications at Time [...] months. Discussed acute management of menorrhagia with nutrition partner gynecology as pt and mother requesting cessation of menstruation. Risk Advisor recommended initiation of OCP taper - 3 pills (AM, noon, PM) for 3 days, 2 pills for 2 days, daily until bleeding stops. Counseled family on possible side effec ts with high dose estrogen including n/v, abd pain, headache, etc. Will provide prescription for Zofran to use PRN for emesis. Instructed to follow-up with previously established banking consultant provider to ensure effective cessation of symptoms. Return precautions reviewed. Family voices understanding and agreement with the plan. Amount and/or Complexity of Data Reviewed Clinical lab tests: reviewed Menorrhagia with irregular cycle Autumn Land MD 12/12/18 1158 * Fredy Bergeron RN - 11/15/2018 11:56 AM CST Bed: ED1-30 Expected date: Expected time: Means of arrival: Car Comments: Fredy Bergeron RN 11/15/18 1156 N PROCESSOR * Katiana James RN - 11/15/2018 11:22 AM CST Patient here for heavy menstruation, passing clots, in the last hour soaked a super plus tampon andovernight pad. About 1 year ago, almost had to have a blood transfusion for similar issue. Denies dizziness/lightheadness. Today is day 3 or 4 of period. N PROCESSOR documented in this encounter Plan of Treatment Not on file documented as of this encounter Procedures Procedure Name Priority Date/Time Associated Diagnosis Comments CBC WITH AUTO DIFFERENTIAL STAT 11/15/2018 1:57 PM GRAIN PROCESSOR MANUAL DIFFERENTIAL STAT 11/15/2018 1 :57 PM GRAIN PROCESSOR APTT STAT 11/15/2018 1:57 PM GRAIN PROCESSOR PROTIME-INR STAT 11/15/2018 1:57 PM GRAIN PROCESSOR documented in this encounter Results * Manual Differential (11/15/2018 1:57 PM GRAIN PROCESSOR) Differential Manual [facility] Cells [facility]ed [address] [facility] Neutrophil abs 5.4 1.5 - 9.4 K/cumm [facility] Imm gran abs 0.0 0.0 - 0.2 K/cumm [facility] Lymphocyte abs 2.2 1.0 - 7.2 K/cumm [facility] Monocyte abs 0.1 0.1 - 1.7 K/cumm [facility] Eosinophil abs 0.1 0.1 - 1.6 K/cumm [facility] Basophil abs 0.1 0.0 - 0.3 K/cumm [facility] Neutrophil pct 68.7 % [facility] Comment: Interpretive Data Percent cell count reference ranges are not reported, since discordance with absolute values may lead to misinterpretation of CBC data. Current Interpretive Data was last revised on 2018. Lymphocyte pct 27.8 % [facility] Comment: Interpretive Data Percent cell count reference ranges are not reported, since discordance with absolute values may lead to misinterpretation of CBC data. Current Interpretive Data was last revised on 2018. Monocyte pct 1.7 % [facility] Comment: Interpretive Data Percent cell count reference ranges are not reported, since discordance with absolute values may lead to misinterpretation of CBC data. Current Interpretive Data was last revised on 2018. Eosinophil pct 0.9 % [facility] Comment: Interpretive Data Percent cell count reference ranges are not reported, since discordance with absolute values may lead to misinterpretation of CBC data. Current Interpretive Data was last revised on 2018. Basophil pct 0.9 % [facility] Comment: Interpretive Data Percent cell count reference ranges are not reported, since discordance with absolute values may lead to misinterpretation of CBC data. Current Interpretive Data was last revised on 2018. RBC morphology Normal [facility] Platelet estimate Adequate [facility] Blood specimen (specimen) 11/15/2018 1:57 PM GRAIN PROCESSOR 11/15/2018 2:05 PM GRAIN PROCESSOR Narrative [facility] - 11/15/2018 2:31 PM GRAIN PROCESSOR Autumn Land MD LAB BLOOD ORDERABLES Final Result Performing Organization Address [facility] Co de Phone Number [facility] [place] [address] * aPTT (11/15/2018 1:57 PM GRAIN PROCESSOR) aPTT 29.5 23.0 - 40.6 sec [facility] Comment: Interpretive Data Usual therapeutic range for monitoring unfractionated heparin is 1.5 - 2 times the mean of the normal range of the PTT. ?? Current interpretive data was last revised on 12 Blood specimen (specimen) 11/15/2018 1:57 PM GRAIN PROCESSOR 11/15/2018 2:05 PM GRAIN PROCESSOR Narrative [facility] - 11/15/2018 2:34 PM GRAIN PROCESSOR Autumn Land MD LAB BLOOD ORDERABLES Edited Result - Final Performing Organization Address [facility] Co de Phone Number [facility] [place] [address] * Protime-INR (11/15/2018 1:57 PM GRAIN PROCESSOR) PT 14.7 12.0 - 16.1 sec [facility] INR 1.07 [facility] Comment: Interpretive data Recommended Therapeutic Ranges for Oral Anticoagulants: INR of 2.0 - 3.0 on Standard Dose. Indications, for example; prophylaxis and treatment of venous thrombosis. INR of 2.5 - 3.5 on High Dose. Indications, for example; a mechanical heart valve. Current interpretive data was last revised on 07. Blood specimen (specimen) 11/15/2018 1:57 PM GRAIN PROCESSOR 11/15/2018 2:05 PM GRAIN PROCESSOR Narrative [facility] - 11/15/2018 2:34 PM GRAIN PROCESSOR Autumn Land MD LAB BLOOD ORDERABLES Edited Result - Final [facility] Department [place] [address] * (ABNORMAL) CBC with auto differential (11/15/2018 1:57 PM GRAIN PROCESSOR) Pathologist [facility] WBC 7.8 3.8 - 9.9 K/cumm [facility] Hgb 11.7(L) 11.9 - 15.5 g/dL [facility] Hct 36.2 35.6 - 45.5 % [facility] Plt 300 150 - 400 K/cumm [facility] MPV 9.0(L) 9.1 - 12.3 fL [facility] RBC 4.32 3.90 - 5.20 M/cumm [facility] MCV 83.8 81.3 - 96.4 fL [facility] MCH 27.1 27.1 - 33.3 pg [facility] MCHC 32.3 32.3 - 35.7 g/dL [facility] RDW CV 13.3 11.1 - 14.9 % [facility] RDW SD 40.9 35.7 - 48.1 fL [facility] NRBC abs 0.00 0.00 - 0.01 K/cumm [facility] Blood specimen (specimen) 11/15/2018 1:57 PM GRAIN PROCESSOR 11/15/2018 2:05 PM GRAIN PROCESSOR Narrative [facility] - 11/15/2018 2:30 PM GRAIN PROCESSOR us Autumn Land MD LAB BLOOD ORDERABLES Final Result [facility] Department [place] [address] documented in this encounter Visit Diagnoses Diagnosis [...] prior to procedure. Given 11/15/2018 1:58 PM GRAIN PROCESSOR 0.1 mL Other (Comment) documented in this [...] Recently Administered Medications Times are shown in GRAIN PROCESSOR. Scheduled Medication Order 11/13/2018 11/14/2018 11/15/2018 lidocaine [...] 11/15/2018 documented in this encounter Care Teams Cotton Puller Relationship Specialty Start Date End Date Bassem Cho MD [address] [place] [address] PCP - General 01/17/17 12/19/18 documented as of this encounter
--- OUTSIDE RECORDS SUMMARY | 2024-10-21 04:47 | XMS_ITS | Encounter Summary ---
Author Organization [facility] Healthcare Address [address] [place] [address] Care Team Providers Care Hedis Analyst Name Role Phone Bassem Cho MD Unavailable [phone] Cortney Pineda NP Primary Care Provider [phone] Reason for Visit * Reason Comments Respiratory Distress Fever Encounter Details Date Type Department Care Team (Late st Contact Info) Description 06/09/2020 6:00 PM CDT - 06/10/2020 1:06 AM CDT Emergency [facility] [place] [address] Lion Bullard MD [address] [address] Melva Quintana MD [address] [address] Dehydration (Primary Dx); Viral syndrome; Iron deficiency [...] on file Legal Sex Female 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 01/07/2021 9:24 AM [...] breathing or other concerning symptoms, call your director of public relations, and if he/she cannot see him the [...] CDT) Iron 18(L) 35 - 145 mcg/dL [facility] TIBC 347 250 - 400 mcg/dL [facility] Transferrin saturation 5(L) 10 - 45 % [facility] Blood specimen (specimen) 06/09/2020 7:27 PM CDT 06/09/2020 11:27 PM CDT us Moo Donovan MD LAB BLOOD ORDERABLES Fi nal Result [facility] [place] [address] * Ferritin (06/09/2020 7:27 PM CDT) Ferritin 65 15 - 150 ng/mL [facility] Blood specimen (specimen) 06/09/2020 7:27 PM CDT 06/09/2020 11:27 PM CDT Moo Donovan MD LAB BLOOD ORDERABLES Fi nal Result [facility] [place] [address] * (ABNORMAL) Differential, auto (06/09/2020 7:27 PM CDT) Pathologist [facility] Neutrophil abs 1.8 1.5 - 9.4 K/cumm [facility] Imm gran abs 0.0 0.0 - 0.2 K/cumm [facility] Lymphocyte abs 1.5 1.0 - 7.2 K/cumm [facility] Monocyte abs 0.3 0.1 - 1.7 K/cumm [facility] Eosinophil abs 0.0(L) 0.1 - 1.6 K/cumm [facility] Basophil abs 0.0 0.0 - 0.3 K/cumm [facility] Neutrophil pct 50.0 % [facility] Comment: Interpretive Data Percent cell count reference ranges are not reported, since discordance with absolute values may lead to misinterpretation of CBC data. Current Interpretive Data was last revised on 2018. Imm gran pct 0.0 % [facility] Comment: Interpretive Data Percent cell count reference ranges are not reported, since discordance with absolute values may lead to misinterpretation of CBC data. Current Interpretive Data was last revised on 2018. Lymphocyte pct 41.6 % [facility] Comment: Interpretive Data Percent cell count reference ranges are not reported, since discordance with absolute values may lead to misinterpretation of CBC data. Current Interpretive Data was last revised on 2018. Monocyte pct 6.8 % [facility] Comment: Interpretive Data Percent cell count reference ranges are not reported, since discordance with absolute values may lead to misinterpretation of CBC data. Current Interpretive Data was last revised on 2018. Eosinophil pct 1.1 % [facility] Comment: Interpretive Data Percent cell count reference ranges are not reported, since discordance with absolute values may lead to misinterpretation of CBC data. Current Interpretive Data was last revised on 2018. Basophil pct 0.5 % [facility] Comment: Interpretive Data Percent cell count reference ranges are not reported, since discordance with absolute values may lead to misinterpretation of CBC data. Current Interpretive Data was last revised on 2018. Blood specimen (specimen) 06/09/2020 7:27 PM CDT 06/09/2020 7:59 PM CDT Autumn Land MD LAB BLOOD ORDERABLES Final Result Performing Organization Address City/State/[facility] Co de Phone Number [facility] Department [place] [address] * Corby-Oneill virus VCA, IgM (06/09/2020 7:27 PM CDT) EBV VCA IgM Negative Negative [facility] Comment: Interpretive Data Results ? Interpretation [...] Interpretive data revised 12/26/2016. Testing performed by: [facility], [address] [place]., [address] Blood specimen (specimen) 06/09/2020 7:27 PM CDT 06/09/2020 9:45 PM CDT Autumn Land MD LAB BLOOD ORDERABLES Final Result Performing Organization Address [facility] [place] [address] * Corby Oneill virus VCA, IgG (06/09/2020 7:27 PM CDT) [facility] EBV VCA IgG Negative Negative [facility] Comment: Interpretive Data Results ? Interpretation Negative ?No detectable antibody to VCA IgG ?antibody. Equivocal ? Uncertain immune status, suggest ?sending additional sample. Positive ?Indicates the presence of antibody; ?90% of the adult population will ?have been infected with EBV sometime ?in the past. Interpretive data revised 12/26/2016. Testing performed by: [facility], [address] [place]., [address] Blood specimen (specimen) 06/09/2020 7:27 PM CDT 06/09/2020 9:45 PM CDT Autumn Land MD LAB BLOOD ORDERABLES Final Result Performing Organization Address [facility] [place] [address] * Mononucleosis screen (06/09/2020 7:27 PM CDT) [facility] [place] Screen Negative Negative [facility] Comment: Interpretive Data Heterophile antibodies are [...] Land MD LAB BLOOD ORDERABLES Final Result [facility] Department [place] [address] * (ABNORMAL) Comprehensive metabolic panel (06/09/2020 7:27 PM CDT) Sodium 141 135 - 145 mmol/L [facility] Potassium, pl 3.6 3.3 - 4.9 mmol/L [facility] Chloride 113 100 - 114 mmol/L [facility] CO2 23 20 - 30 mmol/L [facility] Anion gap 5 2 - 15 mmol/L [facility] BUN 14 9 - 18 mg/dL [facility] Creatinine 0.50 0.40 - 1.00 mg/dL [facility] Glucose 118 70 - 199 mg/dL [facility] Comment: Interpretive Data Fasting glucose >/= [...] Calcium 8.9 8.5 - 10.3 mg/dL [facility] Bilirubin, total 0.1 0.1 - 1.2 mg/dL [facility] Protein, pl 6.2(L) 6.5 - 8.5 g/dL [facility] Albumin 3.7 3.2 - 5.0 g/dL [facility] Alk phos 49(L) 70 - 260 Units/L [facility] ALT 11 10 - 40 Units/L [facility] AST 15 10 - 50 Units/L [facility] Blood specimen (specimen) 06/09/2020 7:27 PM CDT 06/09/2020 7:59 PM CDT Autumn Land MD LAB BLOOD ORDERABLES Final Result [facility] [address] [facility] [place] [address] * (ABNORMAL) CBC with auto differential (06/09/2020 7:27 PM CDT) WBC 3.7(L) 3.8 - 9.9 K/cumm [facility] Hgb 10.6(L) 11.9 - 15.5 g/dL [facility] Hct 31.8(L) 35.6 - 45.5 % [facility] Plt 312 150 - 400 K/cumm [facility] MPV 9.1 9.1 - 12.3 fL [facility] RBC 3.93 3.90 - 5.20 M/cumm [facility] MCV 80.9(L) 81.3 - 96.4 fL [facility] MCH 27.0(L) 27.1 - 33.3 pg [facility] MCHC 33.3 32.3 - 35.7 g/dL [facility] RDW CV 13.2 11.1 - 14.9 % [facility] RDW SD 39.0 35.7 - 48.1 fL [facility] NRBC abs 0.00 0.00 - 0.01 K/cumm [facility] Blood specimen (specimen) 06/09/2020 7:27 PM CDT 06/09/2020 7:59 PM CDT Autumn Land MD LAB BLOOD ORDERABLES Final Result Performing Organization Address City/[facility]/[place] [address] * hCG, urine, qualitative (06/09/2020 7:19 PM CDT) HCG, ur Negative Negative [facility] Urine 06/09/2020 7:19 PM CDT 06/09/2020 10:28 PM CDT Autumn Land MD LAB URINE ORDERABLES Final Result Performing Organization Address [facility] [place] [address] * (ABNORMAL) Drug screen, urine (06/09/2020 7:19 PM CDT) Drug screen, ur Positive(A) [facility] Comment: The following compounds were detected: 7-aminoclonazepam Repeated and verified. Clerk Funeral Detail review to follow. Interpretive Data This test detects the presence of approximately 50 substances using LC-tandem mass spectrometry. For a list of specific compounds and detection limits refer to the Lab Test Guide Book. While this technique is highly specific, false-positive and false-negative findings may occur in very rare circumstances. Contact the Clerk Funeral Detail professional athlete ([phone]) for consultation if needed. This test was developed and its performance characteristics determined by [facility]. It has not been cleared or approved by the U.S. Food and Drug Administration. Current interpretive data was last revised 2016. Director Review Verified [facility] Comment:Upon Medical Directo r review, no additional compounds were detected. Urine 06/09/2020 7:19 PM CDT 06/09/2020 10:28 PM CDT Autumn Land MD LAB URINE ORDERABLES Final Result Performing Organization Address [facility] [place] [address] * (ABNORMAL) Urinalysis reflex to microscopic (06/09/2020 7:19 PM CDT) Color, ur Yellow Yellow [facility] Clarity, ur Clear Clear [facility] Specific gravity, ur 1.024 1.010 - 1.025 [facility] pH, urine 7.0 [facility] Protein, ur ql Negative Negative [facility] Glucose, ur ql Negative Negative [facility] Ketones, ur Negative Negative [facility] Bilirubin, ur Negative Negative [facility] Blood, ur Negative Negative [facility] Urobilinogen, ur 2.0(A) <2.0 mg/dL [facility] Nitrite, ur Negative Negative [facility] Leukocyte esterase, ur Negative Negative [facility] UA reflex comment Reflex conditions for microscopic UA not met. [facility] Urine 06/09/2020 7:19 PM CDT 06/09/2020 10:28 PM CDT Narrative [facility] - 06/09/2020 10:32 PM CDT ?? Urine pH is affected by diet, medications, systemic acid-base disturbances, and renal tubular function. ??pH may affect urinary stone formation. ??For example, urine pH below 6.0 may help reduce the tendency for calcium phosphate stones and pH greater than 6.0 may reduce the tendency for uric acid stone formation. Source: [facility]. Last revised 10-11-2017 us Autumn Land MD LAB URINE ORDERABLES Final Result [facility] Department [place] [address] documented in this encounter Visit Diagnoses Diagnosis [...] 06/09/2020 documented in this encounter Care Teams Hedis Analyst Relationship Specialty Start Date End Date Cortney Pineda NP [address] [facility] [place] [address] PCP - General 06/09/19 Bassem Cho MD [address] [place] [address] 12/20/18 documented as of this encounter
--- OUTSIDE RECORDS SUMMARY | 2024-10-21 04:47 | XMS_ITS | Encounter Summary ---
Author Organization [facility] Address [address] [place] [address] Phone Care Team Providers Care Quarter Seamer Name Role Phone Bassem Coh MD Unavailable [phone] Cortney Pineda NP Primary Care Provider [phone] Reason for Visit * Reason Comments OT Treatment * Consultation (Routine) - Closed Specialty Diagnoses / Procedures Referred By Contact Referred To Contact Pediatric Occupational Therapy Diagnoses Tic disorder Negrita Pride MD PhD [id number] [place] [address] Phone: tel: fax: [facility] (All Locations) Referral ID Status Reason Start Date Expiration Date V isits Requested Visits Authorized [id number] Closed Specialty Services Required 11/29/2020 12/29/2021 24 24 Encounter Details Date Type Department Care Team (Late st Contact Info) Description 01/20/2021 2:00 PM CDT Therapy [facility] Occupational Therapy [address] [place] [phone] Vicky Ramachandran, OT [address] [place] [address] Tic disorder (Primary Dx) Social History Tobacco Use Types Packs/Day Years Used Date Smoking Tobacco: Never Smokeless Tobacco: Never Alcohol Use Standard Drinks/Week Comments No 0 (1 standard drink = 0.6 oz pur e alcohol) Comments No Sex and Gender Information Value Date Recorded Sex Assigned at Not on file 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 01/07/2021 9:24 AM [...] 3/4 weeks within 2 months. New (12/23/2020) [facility] Goals: 1. Client and caregiver will create [...] unspecified documented in this encounter Care Teams Quarter Seamer Relationship Specialty Start Date End Date Cortney Pineda SIFTING OPERATOR [address] [place] [address] PCP - General 06/09/19 Bassem Cho MD [address] [place] [address] 12/20/18 documented as of this encounter
--- OUTSIDE RECORDS SUMMARY | 2024-10-21 04:48 | XMS_ITS | Encounter Summary ---
Author Organization [facility] Care Team Providers Care Small Animal Caretaker Name Role Phone Unavailable Primary Care Provider Unavailabl e Encounter Details Date Type Department Care Team (Latest Contact Info) Description 08/01/2011 2:51 PM CDT - 08/01/2011 11:59 PM CDT Hospital Encounter [facility] CLINCONV Screening for chemical poisoning and other contamination Social History Tobacco Use Types Packs/Day Years Used Date Smoking Tobacco: Never Assessed Comments Unknown Sex and Gender Information Value Date Recorded Sex Assigned at Not on file 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 01/07/2021 9:24 AM CDT Sexual Orientation Not on file documented as of this encounter Plan of Treatment Not on file documented as of this encounter Visit Diagnoses Diagnosis Screening for chemical poisoning and other contamination documented in this encounter
--- OUTSIDE RECORDS SUMMARY | 2024-10-21 04:48 | XMS_ITS | Encounter Summary ---
Author Organization [facility] Healthcare Address [address] [place] [address] Care Team Providers Care School Business Manager Name Role Phone Miscellaneous, Not In File Primary Care Provider Unavailable Encounter Details Date Type Department Care Team (Latest Contact Info) Description 01/01/2017 5:51 PM CDT - 01/01/2017 11:59 PM CDT Hospital Encounter [facility] OP INTERIM [phone] Herbert Burnett MD [address] [facility] [address] [place] [address] Discharge Disposition: Discharge to home or self care Social History Tobacco Use Types Packs/Day Years Used Date Smoking Tobacco: Never Assessed Comments Unknown Sex and Gender Information Value Date Recorded Sex Assigned at Not on file 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 01/07/2021 9:24 AM CDT [...] M.D. FINAL REPORT ACC# ??Date Time ??Exam [id number] Jan 01, 2017 18:25:00 95303 Spine Cerv 3views or less [id number] Jan 01, 2017 18:25:00 47642 Spine Thoracic 2 views [id number] Jan 01, 2017 18:25:00 16520 Spine Lumbar 2 or 3 views EXAMINATION: [...] thoracic and lumbar spine evaluation. Requested By: HREBERT BURNETT ??MJayaD. ? Dictated By: ?? DIPAK BARKER M.D. ??on Dec ??2016 ??7:06A This document has been electronically signed by: DIPAK BARKER M.D. on Dec ??2016 ??7:06A [id number] Procedure Note Miscellaneous, Notinfile / Provider, MD Solange - 02/22/2017 DIPAK BARKER M.D. FINAL REPORT ACC# Date Time Exam [id number] Jan 01, 2017 18:25:00 34958 Spine Cerv 3views or less [id number] Jan 01, 2017 18:25:00 84555 Spine Thoracic 2 views [id number] Jan 01, 2017 18:25:00 87661 Spine Lumbar 2 or 3 views EXAMINATION: [...] BARKER M.D. on Jan 02 2017 7:06A [id number] us Not In File Miscellaneous IMG XR PROCEDURES Maite l Result * XR Spine Cervical 2 or 3 Views (01/01/2017 11:25 PM CDT) Anatomical Region Laterality Modality Spine N/A Radiographic Veda ging 01/01/2017 11:2 5 PM CDT Narrative 01/01/2017 11:25 PM CDT DIPAK BARKER M.D. FINAL REPORT ACC# ??Date Time ??Exam [id number] Jan 01, 2017 18:25:00 81591 Spine Cerv 3views or less [id number] Jan 01, 2017 18:25:00 20054 Spine Thoracic 2 views [id number] Jan 01, 2017 18:25:00 23953 Spine Lumbar 2 or 3 views EXAMINATION: [...] BARKER M.D. on Dec ??4 2016 ??7:06A [id number] Procedure Note Miscellaneous, Notinfile / Provider, MD Solange - 02/22/2017 DIPAK BARKER M.D. FINAL REPORT ACC# Date Time Exam [id number] Jan 01, 2017 18:25:00 49962 Spine Cerv 3views or less [id number] Jan 01, 2017 18:25:00 75841 Spine Thoracic 2 views [id number] Jan 01, 2017 18:25:00 00048 Spine Lumbar 2 or 3 views EXAMINATION: [...] BARKER M.D. on Jan 02 2017 7:06A [id number] us Not In File Miscellaneous IMG XR PROCEDURES Maite l Result * XR Spine Thoracic 2 Views (01/01/2017 11:25 PM CDT) Anatomical Region Laterality Modality Spine N/A Radiographic Veda ging 01/01/2017 11:2 5 PM CDT Narrative 01/01/2017 11:25 PM CDT DIPAK BARKER M.D. FINAL REPORT ACC# ??Date Time ??Exam [id number] Jan 01, 2017 18:25:00 93080 Spine Cerv 3views or less [id number] Jan 01, 2017 18:25:00 15314 Spine Thoracic 2 views [id number] Jan 01, 2017 18:25:00 61433 Spine Lumbar 2 or 3 views EXAMINATION: [...] DIPAK BARKER M.D. on Dec ??2016 ??7:06A [id number] Procedure Note Miscellaneous, Notinfile / ProviderSolange MD - 02/22/2017 DIPAK BARKER M.D. FINAL REPORT ACC# Date Time Exam [id number] Jan 01, 2017 18:25:00 32665 Spine Cerv 3views or less [id number] Jan 01, 2017 18:25:00 92720 Spine Thoracic 2 views [id number] Jan 01, 2017 18:25:00 38130 Spine Lumbar 2 or 3 views EXAMINATION: [...] BARKER M.D. on Jan 02 2017 7:06A [id number] us Not In File Miscellaneous IMG XR PROCEDURES Maite l Result documented in this encounter Visit Diagnoses Not on filedocumented in this encounter Care Teams School Business Manager Relationship Specialty Start Date End Date Miscellaneous, Not In File PCP - General 01/01/17 documented as of this encounter
--- OUTSIDE RECORDS SUMMARY | 2024-10-21 04:48 | XMS_ITS | Encounter Summary ---
Author Organization [facility] Facility Care Team Providers Care Actuarial Internship Name Role Phone Unavailable Primary Care Provider Unavailabl e Encounter Details Date Type Department Care Team (Latest Contact Info) Description 12/13/2010 1:10 PM CDT - 12/13/2010 4:57 PM CDT Hospital Encounter [facility] CL[facility] Open wound of lip; Open wound of mouth; Fall resulting in striking against other object; Place of occurrence, public building; Asthma Social History Tobacco Use Types Packs/Day Years Used Date Smoking Tobacco: Never Assessed Comments Unknown Sex and Gender Information Value Date Recorded Sex Assigned at Not on file 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 01/07/2021 9:24 AM [...]
--- OUTSIDE RECORDS SUMMARY | 2024-10-21 04:48 | XMS_ITS | Encounter Summary ---
Author Organization [facility] Facility Care Team Providers Care Network Infrastructure Architect Name Role Phone Unavailable Primary Care Provider Unavailabl e Encounter Details Date Type Department Care Team (Latest Contact Info) Description 11/11/2009 11:41 PM BUSINESS PROCESS MODELER - 11/12/2009 2:20 AM BUSINESS PROCESS MODELER Hospital Encounter [facility] CL[facility] eFng Chavez MD [address] 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 01/07/2021 9:24 AM CDT [...]
--- OUTSIDE RECORDS SUMMARY | 2024-10-21 04:48 | XMS_ITS | Encounter Summary ---
Author Organization [facility] Facility Care Team Providers Care Hide Examiner Name Role Phone Unavailable Primary Care Provider Unavailabl e Encounter Details Date Type Department Care Team (Late st Contact Info) Description 11/15/2008 6:07 PM AIRPORT MANAGER - 11/15/2008 8:26 PM AIRPORT MANAGER Hospital Encounter [facility] CL[facility]CON[facility] Physician, Eu Asthma Social History Tobacco Use Types Packs/Day Years Used Date Smoking Tobacco: Never Assessed Comments Unknown Sex and Gender Information Value Date Recorded Sex Assigned at Not on file Legal Sex Female 6:43 AM AIRPORT MANAGER Gender Identity . 01/07/2021 9:24 AM CDT Sexual Orientation Not on file documented as of this encounter Plan of Treatment Not on file documented as of this encounter Visit Diagnoses Diagnosis Asthma Unspecified asthma documented in this encounter
--- OUTSIDE RECORDS SUMMARY | 2024-10-21 04:48 | XMS_ITS | Encounter Summary ---
Author Organization [facility] Facility Care Team Providers Care Microbial Specialist Name Role Phone Unavailable Primary Care Provider Unavailabl e Encounter Details Date Type Department Care Team (Latest Contact Info) Description 08/24/2008 10:[address] ADMINISTRATOR - 08/25/2008 3:[address] ADMINISTRATOR Hospital Encounter [facility] Vivian Dent Other and unspecified noninfectious gastroenteritis and colitis; Asthma Social History Tobacco Use Types Packs/Day Years Used Date Smoking Tobacco: Never Assessed Comments Unknown Sex and Gender Information Value Date Recorded Sex Assigned at Not on file Legal Sex Female 6:[address] ADMINISTRATOR Gender Identity . 01/07/2021 9:24 AM CDT Sexual Orientation Not on file documented as of this encounter Plan of Treatment Not on file documented as of this encounter Visit Diagnoses Diagnosis Other and unspecified noninfectious gastroenteritis and colitis Asthma Unspecified asthma documented in this encounter
--- OUTSIDE RECORDS SUMMARY | 2024-10-21 04:48 | XMS_ITS | Encounter Summary ---
Author Organization [facility] Facility Care Team Providers Care Pbx Supervisor Name Role Phone Unavailable Primary Care Provider Unavailabl e Encounter Details Date Type Department Care Team (Late st Contact Info) Description 08/04/2013 2:46 PM BOAT RENTAL CLERK - 08/04/2013 6:37 PM BOAT RENTAL CLERK Hospital Encounter [facility] CLINCONV Abdominal pain Social History Tobacco Use Types Packs/Day Years Used Date Smoking Tobacco: Never Assessed Comments Unknown Sex and Gender Information Value Date Recorded Sex Assigned at Not on file Legal Sex Female 6:43 AM BOAT RENTAL CLERK Gender Identity . 01/07/2021 9:24 AM CDT Sexual Orientation Not on file documented as of this encounter Last Filed Vital Signs Vital Sign Reading Time Taken Comments Blood Pressure - - Pulse - - Temperature - - Respiratory Rate - - Oxygen Saturation - - Inhaled Oxygen Concentration - - Weight 32.7 kg (72 lb 1.5 oz) 08/04/2013 5:43 PM BOAT RENTAL CLERK Height - - Body Mass Index - - documented in this encounter Plan of Treatment Not on file documented as of this encounter Visit Diagnoses Diagnosis Abdominal pain Abdominal pain, unspecified site documented in this encounter
--- OUTSIDE RECORDS SUMMARY | 2024-10-21 04:48 | XMS_ITS | Encounter Summary ---
Author Organization [facility] Facility Care Team Providers Care Content Strategy Lead Name Role Phone Unavailable Primary Care Provider Unavailabl e Encounter Details Date Type Department Care Team (Latest Contact Info) Description 07/08/2009 5:33 PM CDT - 07/08/2009 7:39 PM CDT [facility] with [facility] manifestation Social History Tobacco Use Types Packs/Day Years Used Date Smoking Tobacco: Never Assessed Comments Unknown Sex and Gender Information Value Date Recorded Sex Assigned at Not on file Legal Sex Female 6:43 AM MANAGER EMERGENCY Gender Identity . 01/07/2021 9:24 AM CDT Sexual Orientation Not on file documented as of this encounter Plan of Treatment Not on file documented as of this encounter Visit Diagnoses Diagnosis Influenza with respiratory manifestation documented in this encounter
--- OUTSIDE RECORDS SUMMARY | 2024-10-21 04:48 | XMS_ITS | Encounter Summary ---
Author Organization [facility] Facility Care Team Providers Care Assistant Technician Name Role Phone Unavailable Primary Care Provider Unavailabl e Encounter Details Date Type Department Care Team (Latest Contact Info) Description 11/30/2010 2:51 PM INSTANT PRINTER OPERATOR - 11/30/2010 7:55 PM INSTANT PRINTER OPERATOR Hospital Encounter [facility] Pnp, Eu, [employer] Asthma; Streptococcal sore throat Social History Tobacco Use Types Packs/Day Years Used Date Smoking Tobacco: Never Assessed Comments Unknown Sex and Gender Information Value Date Recorded Sex Assigned at Not on file Legal Sex Female 6:43 AM INSTANT PRINTER OPERATOR Gender Identity . 01/07/2021 9:24 AM CDT Sexual Orientation Not on file documented as of this encounter Plan of Treatment Not on file documented as of this encounter Visit Diagnoses Diagnosis Asthma Unspecified asthma Streptococcal sore throat documented in this encounter
== END 2024-10-14 11:36 | disposition home or self-care (01) ==
PROVIDERS: Anesthesiology; Referring Provider Nurse Practitioner; Visit Provider Internal Medicine Gastroenterology
PROC: 0DJ08ZZ Inspection of Upper Intestinal Tract, Via Natural or Artificial Opening Endoscopic (ICD-10-PCS; CPT 43239; principal; 2024-10-14 11:00)
DX: K21.00 Gastro-esophageal reflux disease with esophagitis, without bleeding (principal); K31.89 Other diseases of stomach and duodenum; J45.909 Unspecified asthma, uncomplicated; F41.9 Anxiety disorder, unspecified; F95.2 Tourette's disorder; R29.818 Other symptoms and signs involving the nervous system; M19.90 Unspecified osteoarthritis, unspecified site; F12.90 Cannabis use, unspecified, uncomplicated; E66.9 Obesity, unspecified; Z68.35 Body mass index [BMI] 35.0-35.9, adult; Z79.51 Long term (current) use of inhaled steroids
CPT/HCPCS: 43239; 88305; J2003; J2704; J7120

== ENCOUNTER 2025-07-23 14:29 | Outpatient (CLI) | payer OTHER, SELFPAY ==
--- NOTE | ~2025-07-23 | XR_ITS ---
XR thoracic spine 3V Indication: Compression fx of body of thoracic vertabra Comparison: None Findings: The vertebral heights are intact. No fracture or subluxation. The disc heights are intact. Soft tissues unremarkable Impression: No acute abnormality. Reviewed, dictated and finalized at location P. Impression: No acute abnormality.
--- NOTE | ~2025-07-23 | XR_ITS ---
XR lumbar spine min 4V Indication: Compression fx of L1 lumbar vertebra Comparison: None Findings: The vertebral heights are intact. No fracture or subluxation. The disc heights are intact. Soft tissues unremarkable Impression: No acute abnormality. Reviewed, dictated and finalized at location P. Impression: No acute abnormality.
== END 2025-07-23 14:30 | disposition home or self-care (01) ==
LOC: MICIMG 14:32
PROVIDERS: PCP Physician Assistant; Visit Provider Physician Assistant
DX: S32.010A Wedge compression fracture of first lumbar vertebra, initial encounter for closed fracture (principal); X58.XXXA Exposure to other specified factors, initial encounter
CPT/HCPCS: 72072; 72110